=== PATIENT | male | born 1945 ===

== ENCOUNTER 2016-10-10 19:53 | Inpatient (IN) | payer OTHER, MEDICARE ==
[2016-10-10 19:54] VITALS: BMI 22.6
[2016-10-10] MEDS ORDERED: Sodium Chloride 0.9% 1,000 ML IV STA ×2 (20:28→21:10)
[2016-10-10 20:46] LABS: ABG ALLEN TEST YES; ARTERIAL BLOOD GAS HCO3 23.4 mmol/L (21-28); ARTERIAL BLOOD GAS PH 7.38 (7.35-7.45); ARTERIAL BLOOD GAS PO2 75 mm/Hg (80-100)
[2016-10-10 20:57] LABS: BASO # 0.1 K/uL (0.0-0.2); EOS % 0.2 % (0.0-4.0); HEMATOCRIT 43.1 % (35.0-51.0); LYMPH # 1.1 K/uL (1.0-4.3); LYMPH % 9.9 % (20.0-40.0); MEAN CELL VOLUME 91.3 fl (80.0-94.0); MEAN CORPUSCULAR HGB CONC 32.8 g/dL (33.0-37.0); MEAN PLATELET VOLUME 11.1 fl (7.2-11.7); MONO # 0.5 K/uL (0.0-0.8); MONO % 4.4 % (0.0-10.0); NEUT # 9.5 K/uL (1.8-7.0); NEUT % 84.5 % (50.0-75.0); NRBC % 0.1 % (0.0-0.0); PLATELET COUNT 215 K/uL (130-400); RED CELL DISTRIBUTION WIDTH 13.2 % (11.5-14.5); WHITE BLOOD COUNT 11.2 K/uL (4.8-10.8)
[2016-10-10 21:03] LABS: ALB/GLOB RATIO 1.1 (1.0-2.1); ALCOHOL SERUM < 10 mg/dl (0-10); ALKALINE PHOSPHATASE 114 U/L (38-126); ALT/SGPT 20 U/L (21-72); AST/SGOT 18 U/L (17-59); BILIRUBIN,TOTAL 0.7 mg/dl (0.2-1.3); BLOOD UREA NITROGEN 17 mg/dl (9-20); CALCIUM 9.2 mg/dL (8.4-10.2); CARBON DIOXIDE 22 mmol/L (22-30); CHLORIDE 96 mmol/L (98-107); GFR AFRICAN-AMERICAN > 60; LIPASE 51 U/L (23-300); PHOSPHOROUS 4.4 mg/dl (2.5-4.5); POTASSIUM 4.1 MMOL/L (3.6-5.0); SODIUM 134 mmol/l (132-148); TOTAL PROTEIN 7.6 G/DL (6.3-8.2)
[2016-10-10 21:10] LABS: PARTIAL THROMBOPLASTIN TIME 27.4 Seconds (25.6-37.1)
[2016-10-10] MEDS ORDERED: Insulin Regular 100 units/ml IVP STA (21:10)
[2016-10-10] MEDS ORDERED: Insulin Regular 100 units/ml SC STA (21:10)
[2016-10-10] MEDS ORDERED: Potassium Chloride 20 mEq ER Tab PO STA (21:11)
[2016-10-10 21:20] LABS: T4 7.05 ug/dl (5.5-11.0)
[2016-10-10 21:33] LABS: THYROID STIMULATING HORMONE 3.01 mIU/ML (0.46-4.68)
[2016-10-10 21:37] LABS: GLUCOSE,RANDOM 675 mg/dL (75-110)
[2016-10-10 21:39] LABS: NEUTROPHIL 88 % (42-75); TOTAL CELLS COUNTED 100
[2016-10-10 21:46] LABS: FREE T4 1.01 ng/dL (0.78-2.19)
--- NOTE | 2016-10-10 21:53 | ED PDOC ---
Hyperglycemia/Hypoglycemia Time Seen by Provider: 10/10/16 20:14 Chief Complaint (Nursing): Lower Extremity Problem/Injury Chief Complaint (Provider): weakness History Per: Patient History/Exam Limitations: clinical condition (h/o dementia) Onset/Duration Of Symptoms: Unknown : The patient does not have any of the infectious symptoms listed except for those marked. Additional Complaint(s): EM CAVEAT: History unreliable due to pt's h/o dementia Weakness in legs for many months. Today almost fell down. No head injury. Reports that he does not take any medications for diabetes. He repeatedly reports that he has 2 psychiatrists but no PMD. Pt has tangential thought process and unable to clarify events leading up to reason he presents to the ER today. Past Medical History Reviewed: Historical Data, Nursing Documentation, Vital Signs Vital Signs: Last Vital Signs Temp 98.3 F 10/10/16 19:58 Pulse 143 H 10/10/16 19:58 Resp 22 10/10/16 19:58 BP 135/73 10/10/16 19:58 Pulse Ox 100 10/10/16 19:58 - Medical History PMH: Alzheimer's Disease, Diabetes, Schizophrenia Denies: Chronic Kidney Disease - Family History Family History: States: Unknown Family Hx - Social History Current smoker - smoking cessation education provided: No Alcohol: None Drugs: Denies - Home Medications Home Medications: Ambulatory Orders Medication Instructions Recorded OLANZapine [Zyprexa] 15 mg PO DAILY #0 tab 12/14/15 Memantine HCl [Namenda Xr] 28 mg PO DAILY 10/11/16 - Allergies Allergies/Adverse Reactions: Allergies Allergy/AdvReac Type Severity Reaction Status Date / Time No Known Allergies Allergy Verified 10/10/16 19:58 Review of Systems ROS Statement: Except As Marked, All Systems Reviewed And Found Negative Constitutional: Positive for: Weakness, Malaise Neurological: Positive for: Incoordination, Confusion, Dizziness Psych: Negative for: Suicidal ideation Physical Exam - Reviewed Nursing Documentation Reviewed: Yes Vital Signs Reviewed: Yes - Physical Exam Appears: Positive for: In Acute Distress. Negative for: Uncomfortable Head Exam: Positive for: ATRAUMATIC, NORMOCEPHALIC Skin: Positive for: Warm, Dry Eye Exam: Positive for: EOMI, PERRL ENT: Positive for: Pharynx Is (clear), Other (dry muc memb) Neck: Positive for: Painless ROM, Supple Cardiovascular/Chest: Positive for: Tachycardia. Negative for: Murmur Respiratory: Positive for: Normal Breath Sounds. Negative for: Wheezing, Respiratory Distress Gastrointestinal/Abdominal: Positive for: Soft. Negative for: Tenderness Back: Positive for: Normal Inspection. Negative for: Vertebral Tenderness Extremity: Positive for: Normal ROM, Other (poor muscle bulk). Negative for: Deformity Lymphatic: Negative for: Adenopathy Neurologic/Psych: Positive for: Alert, station jailer II-XII (grossly intact), Oriented (x2 ), Mood/Affect (anxious, pressured speech, tangential thought). Negative for: Motor/Sensory Deficits, Aphasia, Facial Droop - Laboratory Results Result Diagrams: 10/10/16 20:48 10/10/16 20:50 - ECG ECG: Positive for: Interpreted By Nh ECG Rhythm: Positive for: Sinus Tachycardia, Nonspecific Changes O2 Sat by Pulse Oximetry: 100 Pulse Ox Interpretation: Normal - Progress ED Course And Treament: Accession No. : [id number] Patient Name / ID : ANNELIESE SWANSON / [id number] Exam Date : 10/10/2016 22:01:14 ( Approved ) Study Comment : Sex / Age : M / 70Y Creator : Mario Betancourt MD Dictator : Composite Technician : Construction Manager : Mario Betancourt MD Approver2 : Report Date : 10/10/2016 22:38:00 My Comment : [facility] Division of Radiology [address] [place] [address] Tel. no. Patient Name: KIKI COY Pt. Address: [address] [place] [address] Med. Rec #: [id number] [place] [address]: Arya YOU, Melody Mendoza Pt CELL Order Location: [facility] : 1945 Male Age: 70 Order #: [id number] Reason for exam: fall CT Scan HEAD W/O CONTRAST Exam Date: 10/10/16 This imaging exam was performed at [facility] EXAM: CT Head Without Intravenous Contrast CLINICAL HISTORY: 70 years old, male; Signs and symptoms; Weakness, extremity; Bilateral; Additional info: Fall TECHNIQUE: Axial computed tomography images of the head/brain without intravenous contrast. This CT exam was performed using one or more of the following dose reduction techniques: automated exposure control, adjustment of the mA and/or kV according to patient size, and/or use of iterative reconstruction technique. Coronal and sagittal reformatted images were created and reviewed. COMPARISON: CT - HEAD W/O CONTRAST 12/12/2015 11:22:45 PM FINDINGS: Brain: Mild atrophy. No intracranial hemorrhage. No mass. No definite edema. Ventricles: No hydrocephalus. Bones/joints: No acute fracture. Sinuses: Minimal mucus within RIGHT sphenoid sinus. Mastoid air cells: No mastoid effusion. Orbits: Unremarkable as visualized. IMPRESSION: 1. No intracranial hemorrhage. 2. Incidental/non-acute findings are described above. Dictated By: Mario Betancourt MD Dictated Date/Time: 10/10/162237 Signed By: Mario Betancourt MD Date Signed: [id number] Transcribed By: LORELEI Transcribe Date/Time : 10/10/162237 [id number]/[id number] Medical Decision Making Medical Decision Making: Labs demonstrated hyperglycemia and hyperosmolality and elevated lactic acid ( likely from dehydration). No acidosis. Episode of vomit in ER but then tolerated PO after Zofran Glucose/lactic acid improving with IVF and insulin. OLVIN Rodrigues Medical Service for hospitalization Disposition - Clinical Impression Clinical Impression: Hyperglycemia, Dementia Discussed With : Miguel Rodrigues Doctor Will See Patient In The: Hospital Counseled Patient/Family Regarding: Studies Performed, Diagnosis - Disposition Disposition Time: 23:00 Condition: FAIR - Pt Status Changed To: Hospital Disposition Of: Inpatient - Admit Certification Admit to Inpatient:: After my assessment, the patient will require hospitalization for at least two midnights. This is because of the severity of symptoms shown, intensity of services needed, and/or the medical risk in this patient being treated as an outpatient. - POA Present On Arrival: Poor Glycemic Control
--- NOTE | 2016-10-10 22:38 | CT ---
EXAM: CT Head Without Intravenous Contrast CLINICAL HISTORY: 70 years old, male; Signs and symptoms; Weakness, extremity; Bilateral; Additional info: Fall TECHNIQUE: Axial computed tomography images of the head/brain without intravenous contrast. This CT exam was performed using one or more of the following dose reduction techniques: automated exposure control, adjustment of the mA and/or kV according to patient size, and/or use of iterative reconstruction technique. Coronal and sagittal reformatted images were created and reviewed. COMPARISON: CT - HEAD W/O CONTRAST 12/12/2015 11:22:45 PM FINDINGS: Brain: Mild atrophy. No intracranial hemorrhage. No mass. No definite edema. Ventricles: No hydrocephalus. Bones/joints: No acute fracture. Sinuses: Minimal mucus within RIGHT sphenoid sinus. Mastoid air cells: No mastoid effusion. Orbits: Unremarkable as visualized. IMPRESSION: 1. No intracranial hemorrhage. 2. Incidental/non-acute findings are described above.
[2016-10-10 22:46] LABS: RBC URINE 2 /hpf (0-3); URINE BILIRUBIN NEGATIVE (NEGATIVE); URINE BLOOD NEGATIVE (NEGATIVE); URINE COLOR STRAW (YELLOW); URINE GLUCOSE (UA) >=500 mg/dL (Normal); URINE KETONE NEGATIVE (NEGATIVE); URINE LEUKOCYTE ESTERASE MOD Leu/uL (Negative); URINE PROTEIN NEGATIVE (NEGATIVE); URINE UROBILINOGEN 0.2-1.0 mg/dL (0.2-1.0); WBC URINE 8 /hpf (0-5)
[2016-10-10] MEDS ORDERED: Glucagon Recombinant 1 mg Inj IM PRN (23:19)
[2016-10-10] MEDS ORDERED: Dextrose 50% SYRINGE Inj (50 ml) IV PRN (23:19)
[2016-10-10 23:34] LABS: VENOUS BLOOD GAS BASE EXCESS 2.8 mmol/L (0.0-2.0); VENOUS BLOOD GAS PCO2 59 mmHg (40-60); VENOUS BLOOD PH 7.32 (7.32-7.43)
[2016-10-11] MEDS: Insulin Regular 100 units/ml SC SCH ×4 (00:08→17:02)
[2016-10-11] MEDS ORDERED: Insulin Regular 100 units/ml ONE ×2 (00:11→12:28)
--- NOTE | 2016-10-11 08:39 | RAD ---
HISTORY: hyperglycemia COMPARISON: 12/13/2015 FINDINGS: LUNGS: No active pulmonary disease. PLEURA: No significant pleural effusion identified, no pneumothorax apparent. CARDIOVASCULAR: Normal. OSSEOUS STRUCTURES: No significant abnormalities. VISUALIZED UPPER ABDOMEN: Normal. OTHER FINDINGS: None. IMPRESSION: No active disease. No significant interval change compared to the prior examination(s). No preliminary report provided by emergency department personnel.
[2016-10-11] MEDS: Sodium Chloride 0.45% 1,000 ML IV SCH ×2 (09:45→19:50)
[2016-10-11] MEDS: Enoxaparin 40 mg Syringe SC SCH (10:09)
--- NOTE | 2016-10-11 14:41 | CP.PCM.CON ---
History of Present Illness - History of Present Illness History of Present Illness: Psychiatry Consult called for history of schizophrenia CC: "I fell" HPI: 70 yo male w/ reported history of Alzheimers Dementia and Schizophrenia ( as per chart, patient denies), presented to the hospital s/p fall. Patient denies acute symptoms of paranoia, delusions, hallucinations, depression, anxiety, suicidal/homicidal ideation. Patient's primary complaint is medical. He reports that he lives alone. He is a limited historian due to cognitive impairment. PPHx: Reports being diagnosed with Schizophrenia at age 17, but does not believe the diagnosis is currently accurate. He reports compliance with Zyprexa 15 mg PO HS and Namenda 28 mg PO Daily. He reports that his psychiatrist is Dr. Campos. He reports that he was last hospitalized in 1998. PMHx: Patient denies acute medical issues, but he is a poor historian ALL: NKDA FHx: Denies family h/o mental illness SHx: Reports that he lives alone. Denies drugs/ etoh. MSE: Calm, cooperative, no acute distress, speech mumbled at times, thought process- coherent, but loose at times, thought content- no delusions, no hallucinations, mood "fine", affect- broad, no SI/HI. Insight/judgment limited due to cognitive impairment. Impression: 70 yo male w/ reported history of Alzheimers Dementia and Schizophrenia (as per chart, patient denies), per examination, patient seems to be psychiatrically stable at this time. -Continue Zyprexa 15 mg PO HS -Continue Namenda 28 mg PO Daily -No psychiatric inpatient admission indicated at this time -Recommend help arrange a safe discharge for the patient whenever he is medically stable, it is unclear how much help (BATHROOM TILING PROFESSIONAL, etc) the patient has at home and he seems unable to attend to all of his daily needs without assistance Past Patient History - Past Medical History & Family History Past Medical History?: No - Past Social History Alcohol: None Drugs: Denies - CARDIAC Hx Cardiac Disorders: No - PULMONARY Hx Respiratory Disorders: No - NEUROLOGICAL Hx Alzheimer's Disease: Yes - HEENT Hx HEENT Problems: No - RENAL Hx Chronic Kidney Disease: No - ENDOCRINE/METABOLIC Hx Endocrine Disorders: No - HEMATOLOGICAL/ONCOLOGICAL Hx Blood Disorders: No Hx Bruising: No - INTEGUMENTARY Hx Dermatological Problems: No - MUSCULOSKELETAL/RHEUMATOLOGICAL Hx Musculoskeletal Disorders: No - GASTROINTESTINAL Hx Gastrointestinal Disorders: No - GENITOURINARY/GYNECOLOGICAL Hx Genitourinary Disorders: No - PSYCHIATRIC Hx Schizophrenia: Yes - SURGICAL HISTORY Hx Surgeries: No - ANESTHESIA Hx Anesthesia: No Hx Anesthesia Reactions: No Meds Allergies/Adverse Reactions: Allergies Allergy/AdvReac Type Severity Reaction Status Date / Time No Known Allergies Allergy Verified 10/10/16 19:58 - Medications Medications: Current Medications Dextrose (Dextrose 50% Inj) 0 ml IV STAT PRN; Protocol PRN Reason: Hyglycemia Protocol Dextrose (Glutose 15) 0 gm PO ONCE PRN; Protocol PRN Reason: Hypoglycemia Protocol Enoxaparin Sodium (Lovenox) 40 mg SC DAILY BEL PRN Reason: Protocol Last Admin: 10/11/16 10:09 Dose: 40 mg Glucagon (Glucagen Diagnostic Kit) 0 mg IM STAT PRN; Protocol PRN Reason: Hypoglycemia Protocol Sodium Chloride (Sodium Chloride 0.45%) 1,000 mls @ 80 mls/hr IV .[id number] [facility] Stop: 10/12/16 08:19 Last Admin: 10/11/16 09:45 Dose: 80 mls/hr Insulin Human Regular (Humulin R) 0 units SC ACHS BEL PRN Reason: Protocol Last Admin: 10/11/16 12:39 Dose: 5 units Memantine (Namenda) 10 mg PO BID [facility] Last Admin: 10/11/16 10:08 Dose: 10 mg Metformin HCl (Glucophage) 1,000 mg PO BIDWM [facility] Last Admin: 10/11/16 10:07 Dose: 1,000 mg Olanzapine (Zyprexa) 15 mg PO HS [facility] Results - Vital Signs Recent Vital Signs: Last Vital Signs Temp 98.1 F 10/11/16 07:43 Pulse 82 10/11/16 11:29 Resp 16 10/11/16 11:29 BP 100/58 L 10/11/16 11:29 Pulse Ox 100 10/11/16 11:29 - Labs Result Diagrams: 10/10/16 20:48 10/10/16 20:50 Labs: Laboratory Results - last 24 hr 10/10/16 10/11/16 23:32 07:37 pO2 12 L VBG pH 7.32 VBG pCO2 59 VBG HCO3 24.8 VBG Total CO2 32.2 H VBG O2 Sat (Calc) 29.7 L VBG Base Excess 2.8 H VBG Potassium 3.5 L Sodium 143.0 Chloride 107.0 Glucose 85 Lactate 2.9 H FiO2 21.0 POC Glucose (mg/dL) 147 H Venous Blood Potassium 3.5 L
--- NOTE | 2016-10-11 15:07 | HP ---
HISTORY OF PRESENT ILLNESS: The patient is a 70-year-old male who was admitted to the emergency room. He does not give much of the history because he is unsure of how he got here, all he knows that he had an episode of dizziness and nearly fell while he was walking around the streets, and he was brought to the emergency room by the railroad police. It indicates he was in an ambulance. He does not remember anything else except that he has [address], [address]. Mayes and another psychiatrist that he follows up with in [place]. He is also on psychiatrist medications, but denies any other medical problems. He indicates that somebody told him he had diabetes, but he was not sure about it. PAST MEDICAL HISTORY: As per records indicates mild Alzheimer's disease, schizophrenia, diabetes mellitus. FAMILY HISTORY: Noncontributory. SOCIALLY: He denies alcohol or drug use and lives in [place]. MEDICATIONS: As per the patient is Zyprexa and Namenda. PHYSICAL EXAMINATION: GENERAL: The patient is alert, oriented, appears comfortable at present. VITAL SIGNS: Stable. HEENT: Pupils are equal and reactive to light and accommodation. He appears disheveled and unkempt. Mouth shows poor hygiene. JVP flat. LUNGS: Clear. HEART: Regular. No murmurs or gallop. ABDOMEN: Soft and nontender. No organomegaly. EXTREMITIES: Shows no edema. No cyanosis. CENTRAL NERVOUS SYSTEM: Grossly intact except for the fact that the patient's memory is poor. LABORATORY DATA: Remarkable for WBC of 11.2, hemoglobin 14.1, platelet count 215,000. Sodium 134, potassium 4.1, BUN 17, creatinine is 0.8. Serum glucose is 675. CT scan of the head grossly unremarkable except for mild atrophy. Chest x-ray official report is pending. Electrocardiogram is remarkable for sinus tachycardia. IMPRESSION: A 70-year-old male with history of schizophrenia, diabetes mellitus with hyperglycemia, tachycardia secondary to dehydration. PLAN: IV hydration, psychiatric evaluation, Monitor blood sugar and correct appropriately. [employer] intervention. Miguel Rodrigues MD
--- NOTE | 2016-10-11 17:44 | CARD ---
APPROVED REPORT EKG Measurement Heart [id number] AK 130P1 [id number] <Conclusion> Sinus tachycardia Otherwise normal ECG
[2016-10-11 23:18] VITALS: RESP 18
[2016-10-12 07:07] LABS: ALB/GLOB RATIO 0.9 (1.0-2.1); ALKALINE PHOSPHATASE 102 U/L (38-126); ALT/SGPT 28 U/L (21-72); AST/SGOT 18 U/L (17-59); BILIRUBIN,TOTAL 0.8 mg/dl (0.2-1.3); BLOOD UREA NITROGEN 13 mg/dl (9-20); CALCIUM 8.6 mg/dL (8.4-10.2); CARBON DIOXIDE 27 mmol/L (22-30); CHLORIDE 104 mmol/L (98-107); GFR AFRICAN-AMERICAN > 60; GLUCOSE,RANDOM 251 mg/dL (75-110); POTASSIUM 3.8 MMOL/L (3.6-5.0); SODIUM 139 mmol/l (132-148); TOTAL PROTEIN 6.7 G/DL (6.3-8.2)
[2016-10-12 07:11] LABS: BASO # 0.1 K/uL (0.0-0.2); BASO % 0.8 % (0.0-2.0); EOS # 0.2 K/uL (0.0-0.7); EOS % 1.4 % (0.0-4.0); HEMATOCRIT 40.3 % (35.0-51.0); LYMPH # 2.2 K/uL (1.0-4.3); LYMPH % 16.8 % (20.0-40.0); MEAN CORPUSCULAR HEMOGLOBIN 30.2 pg (27.0-31.0); MEAN CORPUSCULAR HGB CONC 33.5 g/dL (33.0-37.0); MEAN PLATELET VOLUME 10.4 fl (7.2-11.7); MONO # 0.6 K/uL (0.0-0.8); MONO % 4.8 % (0.0-10.0); NEUT # 9.7 K/uL (1.8-7.0); NEUT % 76.2 % (50.0-75.0); RED CELL DISTRIBUTION WIDTH 12.8 % (11.5-14.5); WHITE BLOOD COUNT 12.8 K/uL (4.8-10.8)
[2016-10-12] MEDS: Enoxaparin 40 mg Syringe SC SCH (08:04)
[2016-10-12] MEDS: Insulin Regular 100 units/ml SC SCH ×2 (08:05→12:18)
--- NOTE | 2016-10-12 09:12 | CP.PCM.DIS ---
Provider - Provider Date of Admission: 10/10/16 23:15 Attending physician: Miguel Rodrigues MD Time Spent in preparation of Discharge (in minutes): 30 Diagnosis - Discharge Diagnosis (1) Schizophrenia Status: Acute (2) Hyperglycemia Status: Acute (3) Dementia Status: Chronic Hospital Course - Lab Results Lab Results: Most Recent Lab Values WBC 12.8 K/uL (4.8-10.8) H 10/12/16 06:10 RBC 4.48 Mil/uL (4.40-5.90) 10/12/16 06:10 Hgb 13.5 g/dL (12.0-18.0) 10/12/16 06:10 Hct 40.3 % (35.0-51.0) 10/12/16 06:10 MCV 90.0 fl (80.0-94.0) 10/12/16 06:10 MCH 30.2 pg (27.0-31.0) 10/12/16 06:10 MCHC 33.5 g/dL (33.0-37.0) 10/12/16 06:10 RDW 12.8 % (11.5-14.5) 10/12/16 06:10 Plt Count 175 K/uL (130-400) 10/12/16 06:10 MPV 10.4 fl (7.2-11.7) 10/12/16 06:10 Neut % (Auto) 76.2 % (50.0-75.0) H 10/12/16 06:10 Lymph % (Auto) 16.8 % (20.0-40.0) L 10/12/16 06:10 [place] % (Auto) 4.8 % (0.0-10.0) 10/12/16 06:10 Eos % (Auto) 1.4 % (0.0-4.0) 10/12/16 06:10 Baso % (Auto) 0.8 % (0.0-2.0) 10/12/16 06:10 Neut # 9.7 K/uL (1.8-7.0) H 10/12/16 06:10 Lymph # 2.2 K/uL (1.0-4.3) 10/12/16 06:10 [place] # 0.6 K/uL (0.0-0.8) 10/12/16 06:10 Eos # 0.2 K/uL (0.0-0.7) 10/12/16 06:10 Baso # 0.1 K/uL (0.0-0.2) 10/12/16 06:10 Neutrophils % (Manual) 88 % (42-75) H 10/10/16 20:48 Band Neutrophils % 2 % (0-2) 10/10/16 20:48 Lymphocytes % (Manual) 8 % (20-50) L 10/10/16 20:48 Monocytes % (Manual) 2 % (0-10) 10/10/16 20:48 Platelet Estimate Normal (NORMAL) 10/10/16 20:48 PT 11.9 Seconds (9.8-13.1) 10/10/16 20:48 INR 1.2 (0.9-1.2) 10/10/16 20:48 APTT 27.4 Seconds (25.6-37.1) 10/10/16 20:48 pCO2 39 mm/Hg (35-45) 10/10/16 20:42 pO2 12 mm/Hg (30-55) L 10/10/16 23:32 HCO3 23.4 mmol/L (21-28) 10/10/16 20:42 ABG pH 7.38 (7.35-7.45) 10/10/16 20:42 ABG Total CO2 24.3 mmol/L (22-28) 10/10/16 20:42 ABG O2 Saturation 97.6 % (95-98) 10/10/16 20:42 ABG Base Excess -1.8 mmol/L (-2.0-3.0) 10/10/16 20:42 Tushar Test Yes 10/10/16 20:42 ABG Potassium 4.1 mmol/L (3.6-5.2) 10/10/16 20:42 VBG pH 7.32 (7.32-7.43) 10/10/16 23:32 VBG pCO2 59 mmHg (40-60) 10/10/16 23:32 VBG HCO3 24.8 mmol/L 10/10/16 23:32 VBG Total CO2 32.2 mmol/L (22-28) H 10/10/16 23:32 VBG O2 Sat (Calc) 29.7 % (40-65) L 10/10/16 23:32 VBG Base Excess 2.8 mmol/L (0.0-2.0) H 10/10/16 23:32 VBG Potassium 3.5 mmol/L (3.6-5.2) L 10/10/16 23:32 A-a O2 Difference 26.0 mm/Hg 10/10/16 20:42 Sodium 143.0 mmol/L (132-148) 10/10/16 23:32 Chloride 107.0 mmol/L (98-107) 10/10/16 23:32 Glucose 85 mg/dL (75-110) 10/10/16 23:32 Lactate 2.9 mmol/L (0.7-2.1) H 10/10/16 23:32 FiO2 21.0 % 10/10/16 23:32 Crit Value Called To Melody barlow md 10/10/16 20:42 Crit Value Called By [id number] 10/10/16 20:42 Crit Value Read Back Y 10/10/16 20:42 Blood Gas Notified Time 204510/10/16 20:42 Sodium 139 mmol/l (132-148) 10/12/16 06:10 Potassium 3.8 MMOL/L (3.6-5.0) 10/12/16 06:10 Chloride 104 mmol/L (98-107) 10/12/16 06:10 Carbon Dioxide 27 mmol/L (22-30) 10/12/16 06:10 Anion Gap 11 (10-20) 10/12/16 06:10 BUN 13 mg/dl (9-20) 10/12/16 06:10 Creatinine 0.5 mg/dL (0.8-1.5) L 10/12/16 06:10 Est GFR ( Amer) > 60 10/12/16 06:10 Est GFR (Non-Af Amer) > 60 10/12/16 06:10 POC Glucose (mg/dL) 282 mg/dL (65-110) H 10/12/16 05:46 Random Glucose 251 mg/dL (75-110) H 10/12/16 06:10 Serum Osmolality 333 mosm/kg (272-300) H 10/10/16 21:10 Calcium 8.6 mg/dL (8.4-10.2) 10/12/16 06:10 Phosphorus 4.4 mg/dl (2.5-4.5) 10/10/16 20:50 Magnesium 2.0 MG/DL (1.6-2.3) 10/10/16 20:50 Total Bilirubin 0.8 mg/dl (0.2-1.3) 10/12/16 06:10 AST 18 U/L (17-59) 10/12/16 06:10 ALT 28 U/L (21-72) 10/12/16 06:10 Alkaline Phosphatase 102 U/L (38-126) 10/12/16 06:10 Ammonia 10 umo/L (16-60) L 10/10/16 20:48 Troponin I < 0.0120 ng/mL (0.00-0.120) 10/10/16 20:50 Total Protein 6.7 G/DL (6.3-8.2) 10/12/16 06:10 Albumin 3.2 g/dL (3.5-5.0) L 10/12/16 06:10 Globulin 3.5 gm/dL (2.2-3.9) 10/12/16 06:10 Albumin/Globulin Ratio 0.9 (1.0-2.1) L 10/12/16 06:10 Lipase 51 U/L (23-300) 10/10/16 20:50 Free T4 1.01 ng/dL (0.78-2.19) 10/10/16 21:10 Thyroxine (T4) 7.05 ug/dl (5.5-11.0) 10/10/16 20:50 Total T3 1.72 nmol/L (1.49-2.60) 10/10/16 20:50 TSH 3rd Generation 3.01 mIU/ML (0.46-4.68) 10/10/16 20:50 Arterial Blood Potassium 4.1 mmol/L (3.6-5.2) 10/10/16 20:42 Venous Blood Potassium 3.5 mmol/L (3.6-5.2) L 10/10/16 23:32 Urine Color Straw (YELLOW) 10/10/16 22:23 Urine Clarity Clear (Clear) 10/10/16 22:23 Urine pH 6.0 (5.0-8.0) 10/10/16 22:23 Ur Specific [place] 1.030 (1.003-1.030) 10/10/16 22:23 Urine Protein Negative mg/dL (NEGATIVE) 10/10/16 22:23 Urine Glucose (UA) >=500 mg/dL (Normal) 10/10/16 22:23 Urine Ketones Negative mg/dL (NEGATIVE) 10/10/16 22:23 Urine Blood Negative (NEGATIVE) 10/10/16 22:23 Urine Nitrate Negative (NEGATIVE) 10/10/16 22:23 Urine Bilirubin Negative (NEGATIVE) 10/10/16 22:23 Urine Urobilinogen 0.2-1.0 mg/dL (0.2-1.0) 10/10/16 22:23 Ur Leukocyte Esterase Mod Adela/uL (Negative) 10/10/16 22:23 Urine RBC (Auto) 2 /hpf (0-3) 10/10/16 22:23 Urine Microscopic WBC 8 /hpf (0-5) H 10/10/16 22:23 Alcohol, Quantitative < 10 mg/dl (0-10) 10/10/16 20:50 Blood Type A POSITIVE 10/10/16 21:16 Antibody Screen Negative 10/10/16 21:16 BBK History Checked No verified bt 10/10/16 21:16 - Hospital Course Hospital Course: hyperglycemia improved with meds more awake and alert Discharge Exam - Head Exam Head Exam: ATRAUMATIC, NORMOCEPHALIC - Eye Exam Eye Exam: EOMI, Normal appearance, PERRL Pupil Exam: NORMAL ACCOMODATION, PERRL - GI/Abdominal Exam GI & Abdominal Exam: Normal Bowel Sounds - Rectal Exam Rectal Exam: NORMAL INSPECTION - Neurological Exam Neurological exam: Alert, CN II-XII Intact, Normal Gait, Oriented x3, Reflexes Normal - Psychiatric Exam Psychiatric exam: Normal Affect, Normal Mood - Skin Skin Exam: Dry, Intact, Normal Color, Warm Discharge Plan - Follow Up Plan Condition: FAIR Disposition: HOME/ ROUTINE Patient education suggested?: Yes Additional Instructions: discharge today pt indicates that he will follow up with his private dr and his psychiatrist dr perrin
[2016-10-12 12:31] VITALS: BP 97/60; PULSE 98; TEMP 98.5; O2SAT 98
== END 2016-10-12 15:15 | disposition home or self-care (01) | DRG 294 ==
LOC: H.ER 19:53 → H.ERHOLD 23:15 → H.TEL 10-11 18:19
PROVIDERS: ADMIT Internal Medicine Pulmonary Disease; ATTEND Internal Medicine Pulmonary Disease
DX: E11.65 Type 2 diabetes mellitus with hyperglycemia (principal); G30.9 Alzheimer's disease, unspecified; E86.0 Dehydration; F02.80 Dementia in other diseases classified elsewhere, unspecified severity, without behavioral disturbance, psychotic disturbance, mood disturbance, and anxiety; F20.9 Schizophrenia, unspecified; R00.0 Tachycardia, unspecified

== ENCOUNTER 2016-11-15 16:59 | Inpatient (IN) | payer MEDICARE, OTHER ==
[2016-11-15 17:00] VITALS: BMI 22.6
[2016-11-15] MEDS ORDERED: Sodium Chloride 0.9% 500 ML IV STA (17:35)
--- NOTE | 2016-11-15 17:39 | ED PDOC ---
HPI: General Adult Time Seen by Provider: 11/15/16 17:13 Chief Complaint (Nursing): Weakness/Neurological Deficit Chief Complaint (Provider): Weakness History Per: Patient History/Exam Limitations: no limitations Onset/Duration Of Symptoms: Days (2 years) Additional Complaint(s): Pt. states he has weakness legs and difficulty walking on going for 2 years. Pt. has pain in legs off and on, but not lately. Has no back pain, dizziness, chest pain, abd pain, fever, cough, headaches. No numbness, tingles. No incontinence or constipation. Is noncompliant with meds and does not know what medical issues he has. More details and hx from previous chart. Past Medical History Reviewed: Historical Data, Nursing Documentation, Vital Signs Vital Signs: Last Vital Signs Temp 98.0 F 11/15/16 17:01 Pulse 107 H 11/15/16 17:01 Resp 16 11/15/16 17:01 BP 154/68 H 11/15/16 17:01 Pulse Ox 99 11/15/16 18:49 - Medical History PMH: Alzheimer's Disease, Dementia, Diabetes, Schizophrenia Denies: HIV, Chronic Kidney Disease - Surgical History Surgical History: No Surg Hx - Family History Family History: States: Unknown Family Hx - Living Arrangements Living Arrangements: Alone - Social History Current smoker - smoking cessation education provided: No Alcohol: None Drugs: Denies - Home Medications Home Medications: Ambulatory Orders Medication Instructions Recorded OLANZapine [Zyprexa] 15 mg PO DAILY #0 tab 12/14/15 Memantine HCl [Namenda Xr] 28 mg PO DAILY 10/11/16 MetFORMIN [glucoPHAGE] 1,000 mg PO BIDWM #60 tab 10/12/16 - Allergies Allergies/Adverse Reactions: Allergies Allergy/AdvReac Type Severity Reaction Status Date / Time No Known Allergies Allergy Verified 10/10/16 19:58 Review of Systems ROS Statement: Except As Marked, All Systems Reviewed And Found Negative Constitutional: Positive for: Weakness Musculoskeletal: Positive for: Leg Pain Neurological: Positive for: Weakness. Negative for: Numbness, Confusion, Seizures, Altered Mental Status Physical Exam - Reviewed Nursing Documentation Reviewed: Yes Vital Signs Reviewed: Yes - Physical Exam Appears: Positive for: Non-toxic, No Acute Distress Head Exam: Positive for: ATRAUMATIC, NORMAL INSPECTION, NORMOCEPHALIC Skin: Positive for: Normal Color, Warm, DRY Eye Exam: Positive for: EOMI, Normal appearance, PERRL ENT: Positive for: Normal ENT Inspection Neck: Positive for: Normal, Painless ROM, Supple Cardiovascular/Chest: Positive for: Regular Rate, Rhythm Respiratory: Positive for: CNT, Normal Breath Sounds Gastrointestinal/Abdominal: Positive for: Normal Exam, Bowel Sounds, Soft. Negative for: Tenderness Back: Positive for: Normal Inspection. Negative for: L CVA Tenderness, R CVA Tenderness Extremity: Positive for: Normal ROM. Negative for: Tenderness, Pedal Edema Neurologic/Psych: Positive for: Alert, backwinder II-XII, Oriented. Negative for: Motor/Sensory Deficits - Laboratory Results Result Diagrams: 11/15/16 18:00 11/15/16 18:00 Interpretation Of Abn Labs: 388 glucose - ECG ECG: Positive for: Interpreted By Me, Viewed By Me ECG Rhythm: Positive for: Normal QRS, Normal ST Segment, Sinus Rhythm O2 Sat by Pulse Oximetry: 99 Pulse Ox Interpretation: Normal - Progress ED Course And Treament: 1854: Stable. Will need admit for further eval and tx of deconditioning and hyperglycemia. Spoke with Dr. Petit. Will admit tele obs. Pt. is not suicidal or homicidal at this time. Disposition - Clinical Impression Clinical Impression: Hyperglycemia, Physical deconditioning - Patient ED Disposition Is Patient to be Admitted: Yes Counseled Patient/Family Regarding: Studies Performed, Diagnosis - Disposition Disposition Time: 18:00 Condition: FAIR - Pt Status Changed To: Hospital Disposition Of: Observation - POA Present On Arrival: Poor Glycemic Control
[2016-11-15 18:13] LABS: VENOUS BLOOD GAS BASE EXCESS 2.1 mmol/L (0.0-2.0); VENOUS BLOOD GAS PCO2 52 mmHg (40-60); VENOUS BLOOD PH 7.35 (7.32-7.43)
--- NOTE | 2016-11-15 18:19 | RAD ---
HISTORY: weakness COMPARISON: Chest x-ray performed 10/10/16 TECHNIQUE: Chest, one view. FINDINGS: LUNGS: Mild left basilar atelectasis. Please note that chest x-ray has limited sensitivity for the detection of pulmonary masses. PLEURA: No significant pleural effusion identified. No definite pneumothorax . CARDIOVASCULAR: The cardiomediastinal silhouette appears within normal limits of size. OSSEOUS STRUCTURES: Degenerative changes of the spine. VISUALIZED UPPER ABDOMEN: Unremarkable. OTHER FINDINGS: None. IMPRESSION: Mild left basilar atelectasis.
[2016-11-15 18:26] LABS: BASO # 0.1 K/uL (0.0-0.2); BASO % 0.5 % (0.0-2.0); EOS % 0.2 % (0.0-4.0); HEMATOCRIT 42.5 % (35.0-51.0); LYMPH # 1.4 K/uL (1.0-4.3); LYMPH % 10.3 % (20.0-40.0); MEAN CELL VOLUME 89.8 fl (80.0-94.0); MEAN CORPUSCULAR HEMOGLOBIN 29.9 pg (27.0-31.0); MEAN CORPUSCULAR HGB CONC 33.3 g/dL (33.0-37.0); MEAN PLATELET VOLUME 10.8 fl (7.2-11.7); MONO # 0.7 K/uL (0.0-0.8); MONO % 4.9 % (0.0-10.0); NEUT # 11.3 K/uL (1.8-7.0); NEUT % 84.1 % (50.0-75.0); NRBC % 0.1 % (0.0-0.0); RED CELL DISTRIBUTION WIDTH 13.2 % (11.5-14.5); WHITE BLOOD COUNT 13.5 K/uL (4.8-10.8)
[2016-11-15 18:34] LABS: ALB/GLOB RATIO 1.2 (1.0-2.1); ALKALINE PHOSPHATASE 123 U/L (38-126); ALT/SGPT 31 U/L (21-72); AST/SGOT 61 U/L (17-59); BILIRUBIN,TOTAL 1.3 mg/dl (0.2-1.3); BLOOD UREA NITROGEN 16 mg/dl (9-20); CALCIUM 9.4 mg/dL (8.4-10.2); CARBON DIOXIDE 23 mmol/L (22-30); CHLORIDE 98 mmol/L (98-107); GFR AFRICAN-AMERICAN > 60; GLUCOSE,RANDOM 388 mg/dL (75-110); POTASSIUM 4.3 MMOL/L (3.6-5.0); SODIUM 136 mmol/l (132-148)
--- NOTE | 2016-11-15 18:47 | CT ---
PROCEDURE: CT HEAD WITHOUT CONTRAST. HISTORY: Headache COMPARISON: None available. TECHNIQUE: Axial computed tomography images were obtained through the head/brain without intravenous contrast. Radiation dose: Total exam DLP = 870.25 mGy-cm. This CT exam was performed using one or more of the following dose reduction techniques: Automated exposure control, adjustment of the mA and/or kV according to patient size, and/or use of iterative reconstruction technique. FINDINGS: HEMORRHAGE: No intracranial hemorrhage. BRAIN: Lundberg-white matter differentiation is preserved. There is no mass, mass effect or abnormal extra-axial fluid collection. VENTRICLES: There is mild age-related global parenchymal volume loss and proportionate enlargement of the ventricles and cortical sulci. CALVARIUM: The skull base and calvarium are normal. PARANASAL SINUSES: Predominantly clear. MASTOID AIR CELLS: Predominantly clear. OTHER FINDINGS: None. IMPRESSION: No acute intracranial abnormality. Mild age-related global parenchymal volume loss.
[2016-11-15] MEDS ORDERED: Sodium Chloride 0.9% 1,000 ML IV STA (18:52)
[2016-11-15] MEDS ORDERED: Insulin Regular 100 units/ml IV STA (18:53)
[2016-11-15] MEDS: Insulin Lispro (humaLOG) 100 Units/ml Inj SC SCH (22:43)
[2016-11-16] MEDS: Sodium Chloride 0.9% 1,000 ML IV SCH ×3 (01:53→21:09)
[2016-11-16 06:53] LABS: BASO # 0.1 K/uL (0.0-0.2); BASO % 0.7 % (0.0-2.0); EOS # 0.3 K/uL (0.0-0.7); EOS % 2.7 % (0.0-4.0); HEMATOCRIT 42.6 % (35.0-51.0); LYMPH # 2.6 K/uL (1.0-4.3); MEAN CELL VOLUME 89.7 fl (80.0-94.0); MEAN CORPUSCULAR HEMOGLOBIN 30.5 pg (27.0-31.0); MEAN PLATELET VOLUME 10.3 fl (7.2-11.7); MONO # 0.5 K/uL (0.0-0.8); MONO % 5.1 % (0.0-10.0); NEUT # 6.5 K/uL (1.8-7.0); NEUT % 65.5 % (50.0-75.0); NRBC % 0.2 % (0.0-0.0); RED CELL DISTRIBUTION WIDTH 13.3 % (11.5-14.5); WHITE BLOOD COUNT 9.9 K/uL (4.8-10.8)
[2016-11-16 06:59] LABS: BLOOD UREA NITROGEN 10 mg/dl (9-20); CALCIUM 8.8 mg/dL (8.4-10.2); CARBON DIOXIDE 27 mmol/L (22-30); CHLORIDE 104 mmol/L (98-107); CHOLESTEROL 165 mg/dL (0-199); GFR AFRICAN-AMERICAN > 60; GLUCOSE,RANDOM 171 mg/dL (75-110); POTASSIUM 3.9 MMOL/L (3.6-5.0); SODIUM 139 mmol/l (132-148)
[2016-11-16 07:24] LABS: THYROID STIMULATING HORMONE 4.36 mIU/ML (0.46-4.68)
[2016-11-16 08:19] LABS: RBC URINE 3 /hpf (0-3); URINE BACTERIA RARE (<OCC); URINE BILIRUBIN NEGATIVE (NEGATIVE); URINE BLOOD SMALL (NEGATIVE); URINE COLOR YELLOW (YELLOW); URINE GLUCOSE (UA) >=500 mg/dL (Normal); URINE KETONE 20 mg/dL (NEGATIVE); URINE LEUKOCYTE ESTERASE TRACE Leu/uL (Negative); URINE PROTEIN NEGATIVE (NEGATIVE); URINE UROBILINOGEN 0.2-1.0 mg/dL (0.2-1.0); WBC URINE 8 /hpf (0-5)
--- NOTE | 2016-11-16 08:40 | CP.PCM.CON ---
History of Present Illness - History of Present Illness History of Present Illness: psychiatry consult ordered by dr. kapoor reason: "Pt might have prior psych issue"? cc: i am a normal person with a psych issue hpi: 71 yo male, history of schizophrenia and dementia per history. he is a patient of dr. dominguez who prescribes zyprexa. he saw dr dominguez on november 14, 2016. Dr. Salas also has seen the patient as a operations consultant in October 2016 and recommended maintaining the same psych medications and her consult can be referenced as there is no change. the patient denies any active psychiatric issues and feels he is at his baseline. he is pleased with her psychiatric care and sees his psychiatrist regularly. pt states his main concern is weakness and trouble walking. he denies dizziness. past psych: was on [facility] in 2012. takes zyprexa. social: lives alone substance use: denies medical: diabetes mse: alert, oriented x 3. mood is "good" affect appropriate. well groomed. good eye contact. thoughts are logical. denies any suicidal or homicidal thoughts. denies any a/v hallucinations. fair insight and judgment impression: yes, the patient does have a prior psych issue which has been documented by last month's consult and as confirmed by talking to the patient who is a good historian. He is under the care of a psychiatrist and at his baseline in terms of his mood/ thought symptoms and is in behavioral control. the diagnosis is schizophrenia, by history pt can be restarted on the medications he was previously taking as he has been adherent and his psychiatric status is stable thank you for allowing me to participate in the care of your patient and have a wonderful day. Past Patient History - Past Medical History & Family History Past Medical History?: Yes - Past Social History Smoking Status: Former Smoker - CARDIAC Hx Cardiac Disorders: No - PULMONARY Hx Respiratory Disorders: No - NEUROLOGICAL Hx Neurological Disorder: Yes Hx Alzheimer's Disease: Yes Hx Dementia: Yes - HEENT Hx HEENT Problems: No - RENAL Hx Chronic Kidney Disease: No - ENDOCRINE/METABOLIC Hx Endocrine Disorders: Yes Hx Diabetes Mellitus Type 2: Yes - HEMATOLOGICAL/ONCOLOGICAL Hx Blood Disorders: No Hx Human Immunodeficiency Virus (HIV): No - INTEGUMENTARY Hx Dermatological Problems: No - MUSCULOSKELETAL/RHEUMATOLOGICAL Hx Musculoskeletal Disorders: Yes Hx Falls: Yes - GASTROINTESTINAL Hx Gastrointestinal Disorders: No - GENITOURINARY/GYNECOLOGICAL Hx Genitourinary Disorders: No - PSYCHIATRIC Hx Psychophysiologic Disorder: No Hx Substance Use: No - SURGICAL HISTORY Hx Surgeries: No - ANESTHESIA Hx Anesthesia: No Hx Anesthesia Reactions: No Hx Malignant Hyperthermia: No Meds Allergies/Adverse Reactions: Allergies Allergy/AdvReac Type Severity Reaction Status Date / Time No Known Allergies Allergy Verified 10/10/16 19:58 - Medications Medications: Current Medications Enoxaparin Sodium (Lovenox) 40 mg SC DAILY BEL PRN Reason: Protocol Sodium Chloride (Sodium Chloride 0.9%) 1,000 mls @ 100 mls/hr IV .Q10H BEL Stop: 11/17/16 00:31 Last Admin: 11/16/16 01:53 Dose: 100 mls/hr Insulin Human Lispro (Humalog) 0 units SC ACCU-CHECK BEL PRN Reason: Protocol Last Admin: 11/15/16 22:43 Dose: 2 unit Results - Vital Signs Recent Vital Signs: Last Vital Signs Temp 9.6 F L 11/16/16 08:00 Pulse 76 11/16/16 08:00 Resp 18 11/16/16 08:00 BP 112/63 11/16/16 08:00 Pulse Ox 98 11/16/16 08:00 - Labs Result Diagrams: 11/16/16 06:00 11/16/16 06:00 Labs: Laboratory Results - last 24 hr 11/15/16 11/15/16 11/16/16 20:18 22:04 05:25 WBC RBC Hgb Hct MCV MCH MCHC RDW Plt Count MPV Neut % (Auto) Lymph % (Auto) [place] % (Auto) Eos % (Auto) Baso % (Auto) Neut # Lymph # [place] # Eos # Baso # Sodium Potassium Chloride Carbon Dioxide Anion Gap BUN Creatinine Est GFR ( Amer) Est GFR (Non-Af Amer) POC Glucose (mg/dL) 235 H 395 H 296 H Random Glucose Calcium Triglycerides Cholesterol LDL Cholesterol Direct HDL Cholesterol Vitamin B12 TSH 3rd Generation 11/16/16 11/16/16 06:00 06:00 WBC 9.9 RBC 4.74 Hgb 14.5 Hct 42.6 MCV 89.7 MCH 30.5 MCHC 34.0 RDW 13.3 Plt Count 181 MPV 10.3 Neut % (Auto) 65.5 Lymph % (Auto) 26.0 [place] % (Auto) 5.1 Eos % (Auto) 2.7 Baso % (Auto) 0.7 Neut # 6.5 Lymph # 2.6 [place] # 0.5 Eos # 0.3 Baso # 0.1 Sodium 139 Potassium 3.9 Chloride 104 Carbon Dioxide 27 Anion Gap 12 BUN 10 Creatinine 0.6 L Est GFR ( Amer) > 60 Est GFR (Non-Af Amer) > 60 POC Glucose (mg/dL) Random Glucose 171 H Calcium 8.8 Triglycerides 102 D Cholesterol 165 LDL Cholesterol Direct 94 HDL Cholesterol 50 Vitamin B12 835 TSH 3rd Generation 4.36
[2016-11-16] MEDS: Enoxaparin 40 mg Syringe SC SCH (09:54)
[2016-11-16] MEDS: Insulin Lispro (humaLOG) 100 Units/ml Inj SC SCH ×4 (09:55→22:49)
--- NOTE | 2016-11-17 00:05 | CP.PCM.HP ---
History of Present Illness - History of Present Illness History of Present Illness: CC: Unable to Ambulate and Hyperglycemia History of Present Illness: A 71yoM with H/O DM and weakness legs and difficulty walking on going for 2 years presented with unable to ambualte and worsened generalized weakness and found to be Dehydrated and Hyperglycemia >400mg/dl. Has no back pain, dizziness , chest pain, abd pain, fever, cough, or headaches. No numbness, tingles. No incontinence or constipation. Is noncompliant with meds and does not know what medical issues he has. More details and hx from previous charts. Present on Admission - Present on Admission Any Indicators Present on Admission: Yes History of DVT/PE: No History of Uncontrolled Diabetes: Yes Urinary Catheter: No Decubitus Ulcer Present: No Review of Systems - Review of Systems All systems: reviewed and no additional remarkable complaints except Review of Systems: as per HPI. Past Patient History - Past Medical History & Family History Past Medical History?: Yes Past Family History: Reviewed and not pertinent - Past Social History Smoking Status: Former Smoker Alcohol: None Drugs: Denies - CARDIAC Hx Cardiac Disorders: No - PULMONARY Hx Respiratory Disorders: No - NEUROLOGICAL Hx Neurological Disorder: Yes Hx Alzheimer's Disease: Yes Hx Dementia: Yes - HEENT Hx HEENT Problems: No - RENAL Hx Chronic Kidney Disease: No - ENDOCRINE/METABOLIC Hx Endocrine Disorders: Yes Hx Diabetes Mellitus Type 2: Yes - HEMATOLOGICAL/ONCOLOGICAL Hx Blood Disorders: No Hx Human Immunodeficiency Virus (HIV): No - INTEGUMENTARY Hx Dermatological Problems: No - MUSCULOSKELETAL/RHEUMATOLOGICAL Hx Musculoskeletal Disorders: Yes Hx Falls: Yes - GASTROINTESTINAL Hx Gastrointestinal Disorders: No - GENITOURINARY/GYNECOLOGICAL Hx Genitourinary Disorders: No - PSYCHIATRIC Hx Psychophysiologic Disorder: No Hx Substance Use: No - SURGICAL HISTORY Hx Surgeries: No - ANESTHESIA Hx Anesthesia: No Hx Anesthesia Reactions: No Hx Malignant Hyperthermia: No Meds Home Medications: Home Medication List Medication Instructions Recorded Confirmed Type MetFORMIN [glucoPHAGE] 1,000 mg PO BIDWM #30 tab 11/17/16 Rx Allergies/Adverse Reactions: Allergies Allergy/AdvReac Type Severity Reaction Status Date / Time No Known Allergies Allergy Verified 10/10/16 19:58 Physical Exam - Constitutional Appears: Well, No Acute Distress - Head Exam Head Exam: ATRAUMATIC, NORMAL INSPECTION, NORMOCEPHALIC - Eye Exam Eye Exam: EOMI, Normal appearance, PERRL Pupil Exam: NORMAL ACCOMODATION, PERRL - ENT Exam ENT Exam: Mucous Membranes Moist, Normal Exam - Neck Exam Neck exam: Positive for: Normal Inspection - Respiratory Exam Respiratory Exam: Clear to Auscultation Bilateral, NORMAL BREATHING PATTERN - Cardiovascular Exam Cardiovascular Exam: REGULAR RHYTHM, +S1, +S2 - GI/Abdominal Exam GI & Abdominal Exam: Normal Bowel Sounds, Soft. absent: Tenderness - Extremities Exam Extremities exam: Positive for: normal capillary refill, normal inspection - Back Exam Back exam: FULL ROM, NORMAL INSPECTION. absent: CVA tenderness (L), CVA tenderness (R) - Neurological Exam Neurological exam: Alert, CN II-XII Intact, Oriented x3, Reflexes Normal Additional comments: Unable to ambulate due to Limited ROM to the right Knee. - Psychiatric Exam Psychiatric exam: Normal Affect, Normal Mood - Skin Skin Exam: Dry, Intact, Normal Color, Warm Results - Vital Signs Recent Vital Signs: Last Vital Signs Temp 97.9 F 11/16/16 19:02 Pulse 92 H 11/16/16 19:02 Resp 20 11/16/16 19:02 BP 110/62 11/16/16 19:02 Pulse Ox 98 11/16/16 19:02 - Labs Result Diagrams: 11/16/16 06:00 11/16/16 06:00 Assessment & Plan (1) Dehydration Assessment and Plan: IVF Montor Elctrolytes PT/OT evaluation Status: Acute (2) Assistance needed for ambulation and movement Assessment and Plan: PT/OT Evaluation and Treatment Status: Acute (3) Diabetes mellitus with hyperglycemia Assessment and Plan: Uncontrolled Accu-check with Novolog SS Coverage HgA!C Status: Chronic Priority: Medium
[2016-11-17 00:18] VITALS: RESP 18
--- NOTE | 2016-11-17 08:24 | CP.PCM.PN ---
Subjective - Date & Time of Evaluation Date of Evaluation: 11/17/16 Time of Evaluation: 08:00 - Subjective Subjective: Seen and Examined at the bed side. Hydrated well today, and to be reevaluated by PT/OT. Objective - Vital Signs/Intake and Output Vital Signs (last 24 hours): Temp Pulse Resp BP Pulse Ox 97.6 F 98 H 18 114/63 98 11/17/16 05:33 11/17/16 05:33 11/17/16 05:33 11/17/16 05:33 11/17/16 05:33 - Medications Medications: Current Medications Enoxaparin Sodium (Lovenox) 40 mg SC DAILY BEL PRN Reason: Protocol Last Admin: 11/16/16 09:54 Dose: 40 mg Insulin Human Lispro (Humalog) 0 units SC ACCU-CHECK BEL PRN Reason: Protocol Last Admin: 11/16/16 22:49 Dose: Not Given - Labs Labs: PT 10.7 Seconds (9.8-13.1) 11/15/16 18:40 INR 1.0 (0.9-1.2) 11/15/16 18:40 APTT 33.0 Seconds (25.6-37.1) 11/15/16 18:40 Assessment and Plan (1) Assistance needed for ambulation and movement Status: Acute (2) Dehydration Status: Resolved (3) Diabetes mellitus with hyperglycemia Status: Acute
[2016-11-17 08:25] VITALS: BP 96/57; PULSE 74; TEMP 98.1; O2SAT 94
[2016-11-17] MEDS: Insulin Lispro (humaLOG) 100 Units/ml Inj SC SCH ×2 (09:01→12:51)
[2016-11-17] MEDS: Enoxaparin 40 mg Syringe SC SCH (09:01)
--- NOTE | 2016-11-17 15:15 | CP.PCM.DIS ---
Provider - Provider Date of Admission: 11/16/16 18:26 Attending physician: Mel Petit MD Time Spent in preparation of Discharge (in minutes): 25 Diagnosis - Discharge Diagnosis (1) Assistance needed for ambulation and movement Status: Acute (2) Dehydration Status: Resolved (3) Diabetes mellitus with hyperglycemia Status: Acute Priority: Medium Hospital Course - Lab Results Lab Results: Most Recent Lab Values WBC 9.9 K/uL (4.8-10.8) 11/16/16 06:00 RBC 4.74 Mil/uL (4.40-5.90) 11/16/16 06:00 Hgb 14.5 g/dL (12.0-18.0) 11/16/16 06:00 Hct 42.6 % (35.0-51.0) 11/16/16 06:00 MCV 89.7 fl (80.0-94.0) 11/16/16 06:00 MCH 30.5 pg (27.0-31.0) 11/16/16 06:00 MCHC 34.0 g/dL (33.0-37.0) 11/16/16 06:00 RDW 13.3 % (11.5-14.5) 11/16/16 06:00 Plt Count 181 K/uL (130-400) 11/16/16 06:00 MPV 10.3 fl (7.2-11.7) 11/16/16 06:00 Neut % (Auto) 65.5 % (50.0-75.0) 11/16/16 06:00 Lymph % (Auto) 26.0 % (20.0-40.0) 11/16/16 06:00 [place] % (Auto) 5.1 % (0.0-10.0) 11/16/16 06:00 Eos % (Auto) 2.7 % (0.0-4.0) 11/16/16 06:00 Baso % (Auto) 0.7 % (0.0-2.0) 11/16/16 06:00 Neut # 6.5 K/uL (1.8-7.0) 11/16/16 06:00 Lymph # 2.6 K/uL (1.0-4.3) 11/16/16 06:00 [place] # 0.5 K/uL (0.0-0.8) 11/16/16 06:00 Eos # 0.3 K/uL (0.0-0.7) 11/16/16 06:00 Baso # 0.1 K/uL (0.0-0.2) 11/16/16 06:00 PT 10.7 Seconds (9.8-13.1) 11/15/16 18:40 INR 1.0 (0.9-1.2) 11/15/16 18:40 APTT 33.0 Seconds (25.6-37.1) 11/15/16 18:40 pO2 26 mm/Hg (30-55) L 11/15/16 18:03 VBG pH 7.35 (7.32-7.43) 11/15/16 18:03 VBG pCO2 52 mmHg (40-60) 11/15/16 18:03 VBG HCO3 25.1 mmol/L 11/15/16 18:03 VBG Total CO2 30.3 mmol/L (22-28) H 11/15/16 18:03 VBG O2 Sat (Calc) 50.9 % (40-65) 11/15/16 18:03 VBG Base Excess 2.1 mmol/L (0.0-2.0) H 11/15/16 18:03 VBG Potassium 4.1 mmol/L (3.6-5.2) 11/15/16 18:03 Sodium 135.0 mmol/L (132-148) 11/15/16 18:03 Chloride 97.0 mmol/L (98-107) L 11/15/16 18:03 Glucose 413 mg/dL (75-110) H* D 11/15/16 18:03 Lactate 2.0 mmol/L (0.7-2.1) 11/15/16 18:03 FiO2 21.0 % 11/15/16 18:03 Crit Value Called To Dr edin sanabria 11/15/16 18:03 Crit Value Called By Gabriel 11/15/16 18:03 Crit Value Read Back Y 11/15/16 18:03 Blood Gas Notified Time 18111/15/16 18:03 Sodium 139 mmol/l (132-148) 11/16/16 06:00 Potassium 3.9 MMOL/L (3.6-5.0) 11/16/16 06:00 Chloride 104 mmol/L (98-107) 11/16/16 06:00 Carbon Dioxide 27 mmol/L (22-30) 11/16/16 06:00 Anion Gap 12 (10-20) 11/16/16 06:00 BUN 10 mg/dl (9-20) 11/16/16 06:00 Creatinine 0.6 mg/dL (0.8-1.5) L 11/16/16 06:00 Est GFR ( Amer) > 60 11/16/16 06:00 Est GFR (Non-Af Amer) > 60 11/16/16 06:00 POC Glucose (mg/dL) 335 mg/dL (65-110) H 11/17/16 12:44 Random Glucose 171 mg/dL (75-110) H 11/16/16 06:00 Hemoglobin A1c 12.3 % (4.2-6.5) H 11/16/16 06:00 Calcium 8.8 mg/dL (8.4-10.2) 11/16/16 06:00 Total Bilirubin 1.3 mg/dl (0.2-1.3) 11/15/16 18:00 AST 61 U/L (17-59) H 11/15/16 18:00 ALT 31 U/L (21-72) 11/15/16 18:00 Alkaline Phosphatase 123 U/L (38-126) 11/15/16 18:00 Troponin I < 0.0120 ng/mL (0.00-0.120) 11/15/16 18:00 Total Protein 8.0 G/DL (6.3-8.2) 11/15/16 18:00 Albumin 4.3 g/dL (3.5-5.0) 11/15/16 18:00 Globulin 3.7 gm/dL (2.2-3.9) 11/15/16 18:00 Albumin/Globulin Ratio 1.2 (1.0-2.1) 11/15/16 18:00 Triglycerides 102 mg/DL (0-149) D 11/16/16 06:00 Cholesterol 165 mg/dL (0-199) 11/16/16 06:00 LDL Cholesterol Direct 94 mg/dL (0-129) 11/16/16 06:00 HDL Cholesterol 50 MG/DL (30-70) 11/16/16 06:00 Vitamin B12 835 pg/mL (239-931) 11/16/16 06:00 TSH 3rd Generation 4.36 mIU/ML (0.46-4.68) 11/16/16 06:00 Venous Blood Potassium 4.1 mmol/L (3.6-5.2) 11/15/16 18:03 Urine Color Yellow (YELLOW) 11/15/16 07:52 Urine Clarity Clear (Clear) 11/15/16 07:52 Urine pH 5.0 (5.0-8.0) 11/15/16 07:52 Ur Specific [place] 1.027 (1.003-1.030) 11/15/16 07:52 Urine Protein Negative mg/dL (NEGATIVE) 11/15/16 07:52 Urine Glucose (UA) >=500 mg/dL (Normal) 11/15/16 07:52 Urine Ketones 20 mg/dL (NEGATIVE) 11/15/16 07:52 Urine Blood Small (NEGATIVE) 11/15/16 07:52 Urine Nitrate Negative (NEGATIVE) 11/15/16 07:52 Urine Bilirubin Negative (NEGATIVE) 11/15/16 07:52 Urine Urobilinogen 0.2-1.0 mg/dL (0.2-1.0) 11/15/16 07:52 Ur Leukocyte Esterase Trace Adela/uL (Negative) 11/15/16 07:52 Urine RBC (Auto) 3 /hpf (0-3) 11/15/16 07:52 Urine Microscopic WBC 8 /hpf (0-5) H 11/15/16 07:52 Ur Squamous Epith Cells < 1 /hpf (0-5) 11/15/16 07:52 Urine Bacteria Rare (<OCC) 11/15/16 07:52 RPR Nonreactive (NONREACTIVE) 11/16/16 06:00 Hydratioon - Hospital Course Hospital Course: IV Hydration and Physical Therapy. Novolog coverage. Will D/C Home on Metformin 1000mg BID from Prior Record. Discharge Exam - Head Exam Head Exam: ATRAUMATIC, NORMAL INSPECTION, NORMOCEPHALIC Discharge Plan - Discharge Medications Prescriptions: MetFORMIN [glucoPHAGE] 1,000 mg PO BIDWM #30 tab - Follow Up Plan Condition: FAIR Disposition: HOME/ ROUTINE Instructions: Dehydration (DC) Additional Instructions: patient cleared for discharge to Home today by f/u with PMD in 1 week
== END 2016-11-17 16:29 | disposition home health service (06) | DRG 641 ==
LOC: H.ER 16:59 → H.ERHOLD 18:51 → H.TEL 20:52 → OBSVTOIN 11-16 18:26
PROVIDERS: ADMIT Internal Medicine; ATTEND Internal Medicine
DX: E86.0 Dehydration (principal); E11.65 Type 2 diabetes mellitus with hyperglycemia; G30.9 Alzheimer's disease, unspecified; F02.80 Dementia in other diseases classified elsewhere, unspecified severity, without behavioral disturbance, psychotic disturbance, mood disturbance, and anxiety; F20.9 Schizophrenia, unspecified; R26.2 Difficulty in walking, not elsewhere classified; Z91.14 Patient's other noncompliance with medication regimen; Z79.84 Long term (current) use of oral hypoglycemic drugs; Z87.891 Personal history of nicotine dependence

== ENCOUNTER 2017-05-01 18:39 | Inpatient (IN) | payer MEDICARE, OTHER ==
[2017-05-01 18:39] VITALS: BMI 22.6
[2017-05-01] MEDS ORDERED: Sodium Chloride 0.9% 1,000 ML IV STA (19:04)
--- NOTE | 2017-05-01 20:18 | ED PDOC ---
HPI: Trauma/Fall - HPI Time Seen by Provider: 05/01/17 18:59 Chief Complaint (Nursing): High Blood Sugar Chief Complaint (Provider): Fall injury History Per: Patient, EMS History/Exam Limitations: no limitations Onset/Duration Of Symptoms: Hrs (today) Injury Occurred (Timing): Just Before Arrival Location Of Injury: Anterior: Head (face and nose) Associated Symptoms: denies: LOC Additional Complaint(s): Gabriel Larson is a 71 year old male, with a past medical history of Alzheimer 's disease, schizophrenia, dementia and diabetes, who was brought to the emergency department via EMS for facial injury and nose bleed s/p fall after feeling weak onset prior to arrival. Patient states this has happened before multiple times, he is diabetic and noncompliant with medication. He denies any weakness, blurry vision, difficulty speaking, alcohol or substance abuse. No further medical complaints. PMD: None provided. Past Medical History Reviewed: Historical Data, Nursing Documentation, Vital Signs Vital Signs: Last Vital Signs Temp 98 F 05/01/17 23:04 Pulse 126 H 05/01/17 23:11 Resp 16 05/01/17 23:11 BP 107/60 05/01/17 23:11 Pulse Ox 96 05/01/17 23:11 - Medical History PMH: Alzheimer's Disease, Dementia, Diabetes, Schizophrenia Denies: HIV, Chronic Kidney Disease - Surgical History Surgical History: No Surg Hx - Family History Family History: States: Unknown Family Hx - Home Medications Home Medications: Ambulatory Orders Medication Instructions Recorded MetFORMIN [glucoPHAGE] 1,000 mg PO BIDWM #30 tab 11/17/16 - Allergies Allergies/Adverse Reactions: Allergies Allergy/AdvReac Type Severity Reaction Status Date / Time No Known Allergies Allergy Verified 05/01/17 18:44 Review of Systems ROS Statement: Except As Marked, All Systems Reviewed And Found Negative Constitutional: Positive for: Other (facial injury) Eyes: Negative for: Vision Change ENT: Positive for: Nose Discharge (nosebleed ) Neurological: Negative for: Weakness, Change in Speech Physical Exam - Reviewed Nursing Documentation Reviewed: Yes Vital Signs Reviewed: Yes - Physical Exam Appears: Positive for: No Acute Distress. Negative for: Well (cachectic appearing.) Skin: Positive for: Normal Color, Warm, Dry Eye Exam: Positive for: Normal appearance, EOMI, PERRL ENT: Positive for: Other (diffused edema of nasal bridge and nose with dry blood in b/l nares. No septal hematoma.) Neck: Positive for: Painless ROM, Supple Cardiovascular/Chest: Positive for: Regular Rate, Rhythm. Negative for: Murmur Respiratory: Positive for: Normal Breath Sounds. Negative for: Respiratory Distress Gastrointestinal/Abdominal: Positive for: Normal Exam, Soft. Negative for: Tenderness, Guarding, Rebound Back: Positive for: Normal Inspection. Negative for: L CVA Tenderness, R CVA Tenderness, Vertebral Tenderness Extremity: Positive for: Normal ROM. Negative for: Tenderness, Deformity, Swelling Neurologic/Psych: Positive for: Alert, Oriented (x3). Negative for: Motor/ Sensory Deficits Comments: Accu-chek is over 500. - Laboratory Results Result Diagrams: 05/01/17 20:57 05/01/17 20:57 - ECG O2 Sat by Pulse Oximetry: 96 (RA) Pulse Ox Interpretation: Normal Medical Decision Making Medical Decision Making: Initial Impression: head injury, hypoglycemia. Differential includes but not limited to DKA, dehydration, electrolyte abnormality, traumatic brain injury. Initial Plan: --Type and screen --VBG --Cervical spine w/o contrast [CT] --Head w/o contrast [CT] --Maxillofacial w/o contrast [CT] --EKG --Alcohol serum --CMP --Magnesium --Phosphorus --Troponin I --Urine dipstick --CBC w/ differential --PTT --PT --Chest portable [RAD] --Sodium Chloride 1,000 ml IV 1,000 mls/hr --Blood culture --Urine culture --Influenza A B --Urinalysis --Reevaluation 20:[address] FINDINGS: Brain: There is prominence of sulci, gyri and ventricles. There is no midline shift. There are no intraaxial or extra axial mass lesions or areas of hemorrhage. Lundberg-white differentiation is maintained. Ventricles: See above. Bony structures: Cranial vault is intact. Soft tissues: unremarkable Sinuses: There is no acute sinusitis. Ears and mastoids: Middle ears and mastoids unremarkable. Orbits: Orbital contents are unremarkable. IMPRESSION: No acute intracranial abnormality 20:[address] FINDINGS: Vertebrae: There is exaggeration of the cervical lordosis. There is no prevertebral soft tissue swelling. There are no fractures. There is multilevel degenerative change. There is narrowing of the predental space. There is posterior disc space narrowing at multiple levels. There degenerative osteophytes largest at C5-C6 and C6-C7 Facet joints align anatomically. There is facet joint narrowing. Spinous processes align in the expected fashion. Bony structures are mildly osteopenic. There are multiple lucent lesions in vertebral bodies. Discs/spinal canal/neural foramina: Ears: There is minimal debris in external auditory canals. Soft tissues: See above. Thyroid: Thyroid is heterogeneous. Lung apices: There is minimal scarring at the lung apices. IMPRESSION: Degenerative change, no fracture; abnormal bony architecture, osteopenia versus underlying lesions 22:40 --labs demonstrate hyperglycemia and elevated serum osmolality w/o anion gap. Xray demonstrates left lower lobe infiltrate, pt with tachycardia, leukocytosis and elevated lactic acid. Pt will be admitted for hyperglycemia, syncope, PNA, and early sepsis. --Continue fluid hydration and IV antibiotics. Discussed case with Dr. Alvarez, medical service. Scribe Attestation: Documented by Jaziel Sesay, acting as a scribe for Melody Koenig MD Provider Scribe Attestation: All medical record entries made by the Scribe were at my direction and personally dictated by me. I have reviewed the chart and agree that the record accurately reflects my personal performance of the history, physical exam, medical decision making, and the department course for this patient. I have also personally directed, reviewed, and agree with the discharge instructions and disposition. Disposition - Clinical Impression Clinical Impression: Hyperglycemia, Fall from slip, trip, or stumble, Dehydration, Pneumonia Counseled Patient/Family Regarding: Studies Performed, Diagnosis - Disposition Disposition Time: 22:25 Condition: GUARDED - Pt Status Changed To: Hospital Disposition Of: Inpatient - Admit Certification Admit to Inpatient:: After my assessment, the patient will require hospitalization for at least two midnights. This is because of the severity of symptoms shown, intensity of services needed, and/or the medical risk in this patient being treated as an outpatient. - POA Present On Arrival: Falls Or Trauma, Poor Glycemic Control
--- NOTE | 2017-05-01 20:19 | CT ---
EXAM: CT Head Without Intravenous Contrast EXAM DATE/TIME: 05/01/2017 7:01 PM CLINICAL HISTORY: 71 years old, male; Injury or trauma; Fall; Initial encounter; Concussion / head injury; Consciousness not specified; Additional info: Syncope head injury TECHNIQUE: Axial computed tomography images of the head/brain without intravenous contrast. All CT scans at this facility use one or more dose reduction techniques, viz.: automated exposure control; ma/kV adjustment per patient size (including targeted exams where dose is matched to indication; i.e. head); or iterative reconstruction technique. Coronal and sagittal reformatted images were created and reviewed. COMPARISON: CT - HEAD W/O CONTRAST 2016-11-15 18:13 FINDINGS: Brain: There is prominence of sulci, gyri and ventricles. There is no midline shift. There are no intra-axial or extra axial mass lesions or areas of hemorrhage. Lundberg-white differentiation is maintained. Ventricles: See above. Bony structures: Cranial vault is intact. Soft tissues: unremarkable Sinuses: There is no acute sinusitis. Ears and mastoids: Middle ears and mastoids unremarkable. Orbits: Orbital contents are unremarkable. IMPRESSION: No acute intracranial abnormality
--- NOTE | 2017-05-01 20:25 | CT ---
EXAM: CT Cervical Spine Without Intravenous Contrast EXAM DATE/TIME: 05/01/2017 7:00 PM CLINICAL HISTORY: 71 years old, male; Injury or trauma; Fall; Initial encounter; Concussion /head injury; Additional info: Fall head injury TECHNIQUE: Axial computed tomography images of the cervical spine without intravenous contrast. All CT scans at this facility use one or more dose reduction techniques, viz.: automated exposure control; ma/kV adjustment per patient size (including targeted exams where dose is matched to indication; i.e. head); or iterative reconstruction technique. Coronal and sagittal reformatted images were created and reviewed. COMPARISON: There are no prior studies for comparison. FINDINGS: Vertebrae: There is exaggeration of the cervical lordosis. There is no prevertebral soft tissue swelling. There are no fractures. There is multilevel degenerative change. There is narrowing of the predental space. There is posterior disc space narrowing at multiple levels. There degenerative osteophytes largest at C5-C6 and C6-C7 Facet joints align anatomically. There is facet joint narrowing. Spinous processes align in the expected fashion. Bony structures are mildly osteopenic. There are multiple lucent lesions in vertebral bodies. Discs/spinal canal/neural foramina: Ears: There is minimal debris in external auditory canals. Soft tissues: See above. Thyroid: Thyroid is heterogeneous. Lung apices: There is minimal scarring at the lung apices. IMPRESSION: Degenerative change, no fracture; abnormal bony architecture, osteopenia versus underlying lesions
[2017-05-01 21:03] LABS: VENOUS BLOOD GAS BASE EXCESS 3.4 mmol/L (0.0-2.0); VENOUS BLOOD GAS PCO2 47 mmHg (40-60); VENOUS BLOOD GAS PO2 49 mm/Hg (30-55)
[2017-05-01 21:06] LABS: BASO # 0.1 K/uL (0.0-0.2); BASO % 0.5 % (0.0-2.0); EOS # 0.1 K/uL (0.0-0.7); EOS % 0.5 % (0.0-4.0); HEMOGLOBIN 13.2 g/dL (12.0-18.0); LYMPH # 1.5 K/uL (1.0-4.3); LYMPH % 12.6 % (20.0-40.0); MEAN CELL VOLUME 88.3 fl (80.0-94.0); MEAN CORPUSCULAR HEMOGLOBIN 29.2 pg (27.0-31.0); MEAN CORPUSCULAR HGB CONC 33.1 g/dL (33.0-37.0); MEAN PLATELET VOLUME 10.9 fl (7.2-11.7); MONO # 0.4 K/uL (0.0-0.8); MONO % 3.6 % (0.0-10.0); NEUT # 9.6 K/uL (1.8-7.0); NEUT % 82.8 % (50.0-75.0); NRBC % 0.1 % (0.0-0.0); RBC 4.53 Mil/uL (4.40-5.90); RED CELL DISTRIBUTION WIDTH 13.3 % (11.5-14.5); WHITE BLOOD COUNT 11.6 K/uL (4.8-10.8)
[2017-05-01] MEDS ORDERED: Insulin Regular 100 units/ml SC STA (21:10)
[2017-05-01] MEDS ORDERED: Insulin Regular 100 units/ml IVP STA (21:10)
[2017-05-01] MEDS ORDERED: Insulin Regular 100 units/ml ONE (21:24)
[2017-05-01 21:54] LABS: ALB/GLOB RATIO 0.8 (1.0-2.1); ALBUMIN 3.2 g/dL (3.5-5.0); ALT/SGPT 18 U/L (21-72); AST/SGOT 9 U/L (17-59); BLOOD UREA NITROGEN 19 mg/dl (9-20); CALCIUM 8.6 mg/dL (8.4-10.2); GFR AFRICAN-AMERICAN > 60; GFR NON-AFRICAN AMERICAN > 60
[2017-05-01 22:12] LABS: INR 1.1 (0.9-1.2); PARTIAL THROMBOPLASTIN TIME 31.4 Seconds (25.6-37.1); PROTHROMBIN TIME 12.1 Seconds (9.8-13.1)
[2017-05-01] MEDS ORDERED: Azithromycin 500 MG in Sodium Chloride 0.9% 250 ML IVPB STA ×2 (22:40→22:43)
[2017-05-01] MEDS ORDERED: cefTRIAXone (Rocephin) 1 gm Inj ONE (22:59)
[2017-05-01 23:32] LABS: URINE BILIRUBIN NEGATIVE (NEGATIVE); URINE BLOOD NEGATIVE (NEGATIVE); URINE CLARITY CLEAR (Clear); URINE COLOR STRAW (YELLOW); URINE GLUCOSE (UA) >=500 mg/dL (Normal); URINE LEUKOCYTE ESTERASE NEG Leu/uL (Negative); URINE NITRATE NEGATIVE (NEGATIVE); URINE PROTEIN NEGATIVE (NEGATIVE); URINE UROBILINOGEN 0.2-1.0 mg/dL (0.2-1.0)
[2017-05-02] MEDS ORDERED: Dextrose 50% SYRINGE Inj (50 ml) IV PRN (00:53)
[2017-05-02] MEDS ORDERED: Glucagon Recombinant 1 mg Inj IM PRN (00:53)
[2017-05-02] MEDS: Insulin Regular 100 units/ml SC SCH ×2 (07:54→12:32)
--- NOTE | 2017-05-02 09:03 | CP.PCM.HP ---
History of Present Illness - History of Present Illness History of Present Illness: Hx taken from patient and medical records Patient is poor historian and has dementia 71 year old male, with a PMHx of Alzheimer's disease/schizophrenia and diabetes , was brought to the emergency department via EMS for nose injury and bleed after a fall. Patient admits feelign weak before the fall and he thinks he passed out. Patient states this has happened before multiple times, he is noncompliant with medication. He denies any weakness, blurry vision, difficulty speaking, alcohol or substance abuse. Patient looks disheveled. Present on Admission - Present on Admission Any Indicators Present on Admission: Yes History of Uncontrolled Diabetes: Yes Review of Systems - Review of Systems All systems: reviewed and no additional remarkable complaints except - EENT Nose/Mouth/Throat: Nasal Trauma, Nose Pain - Cardiovascular Cardiovascular: Syncope Past Patient History - Past Medical History & Family History Past Medical History?: Yes - Past Social History Smoking Status: Former Smoker - CARDIAC Hx Cardiac Disorders: No - PULMONARY Hx Respiratory Disorders: No - NEUROLOGICAL Hx Alzheimer's Disease: Yes Hx Dementia: Yes - HEENT Hx HEENT Problems: No - RENAL Hx Chronic Kidney Disease: No - ENDOCRINE/METABOLIC Hx Endocrine Disorders: Yes Hx Diabetes Mellitus Type 2: Yes - HEMATOLOGICAL/ONCOLOGICAL Hx Human Immunodeficiency Virus (HIV): No - INTEGUMENTARY Hx Dermatological Problems: No - MUSCULOSKELETAL/RHEUMATOLOGICAL Hx Musculoskeletal Disorders: Yes Hx Falls: Yes - GASTROINTESTINAL Hx Gastrointestinal Disorders: No - GENITOURINARY/GYNECOLOGICAL Hx Genitourinary Disorders: No - PSYCHIATRIC Hx Schizophrenia: Yes - SURGICAL HISTORY Hx Surgeries: No - ANESTHESIA Hx Anesthesia: No Hx Anesthesia Reactions: No Hx Malignant Hyperthermia: No Meds Allergies/Adverse Reactions: Allergies Allergy/AdvReac Type Severity Reaction Status Date / Time No Known Allergies Allergy Verified 05/01/17 18:44 Physical Exam - Constitutional Appears: Non-toxic, Confused, Other (Disheveled) - Eye Exam Eye Exam: EOMI, PERRL - ENT Exam ENT Exam: Mucous Membranes Moist Additional comments: Nose excoriation - Neck Exam Neck exam: Positive for: Full Rom - Respiratory Exam Respiratory Exam: Clear to Auscultation Bilateral, NORMAL BREATHING PATTERN. absent: Rales, Wheezes - Cardiovascular Exam Cardiovascular Exam: REGULAR RHYTHM, +S1, +S2. absent: Gallop - GI/Abdominal Exam GI & Abdominal Exam: Normal Bowel Sounds, Soft. absent: Distended, Rigid - Extremities Exam Extremities exam: Positive for: full ROM. Negative for: calf tenderness - Neurological Exam Neurological exam: Alert - Skin Skin Exam: Normal Color, Warm Results - Vital Signs Recent Vital Signs: Last Vital Signs Temp 97.2 F L 05/02/17 08:56 Pulse 82 05/02/17 08:56 Resp 18 05/02/17 08:56 BP 96/59 L 05/02/17 08:56 Pulse Ox 96 05/02/17 08:56 - Labs Result Diagrams: 05/01/17 20:57 05/01/17 20:57 Labs: Laboratory Results - last 24 hr 05/01/17 05/01/17 05/01/17 19:00 19:14 20:57 WBC RBC Hgb Hct MCV MCH MCHC RDW Plt Count MPV Neut % (Auto) Lymph % (Auto) [place] % (Auto) Eos % (Auto) Baso % (Auto) Neut # (Auto) Lymph # (Auto) [place] # (Auto) Eos # (Auto) Baso # (Auto) PT INR APTT pO2 49 VBG pH 7.40 VBG pCO2 47 VBG HCO3 27.2 VBG Total CO2 30.5 H VBG O2 Sat (Calc) 89.0 H VBG Base Excess 3.4 H VBG Potassium 4.4 Sodium 134.0 Chloride 99.0 Glucose 585 H* D Lactate 2.7 H FiO2 21.0 Blood Gas Comments Vbg Crit Value Called To Letitia benitez r.n. Crit Value Called By Yady Crit Value Read Back Y Blood Gas Notified Time 2101 Potassium Carbon Dioxide Anion Gap BUN Creatinine Est GFR ( Amer) Est GFR (Non-Af Amer) POC Glucose (mg/dL) > 500 H* Random Glucose Serum Osmolality Calcium Phosphorus Magnesium Total Bilirubin AST ALT Alkaline Phosphatase Troponin I Total Protein Albumin Globulin Albumin/Globulin Ratio Venous Blood Potassium 4.4 Urine Color Urine Clarity Urine pH Ur Specific [place] Urine Protein Urine Glucose (UA) Urine Ketones Urine Blood Urine Nitrate Urine Bilirubin Urine Urobilinogen Ur Leukocyte Esterase Urine RBC (Auto) Urine Microscopic WBC Alcohol, Quantitative Influenza Typ A,B (EIA) Negative for flu a/b Blood Type Antibody Screen BBK History Checked 05/01/17 05/01/17 05/01/17 20:57 20:57 20:57 WBC 11.6 H RBC 4.53 Hgb 13.2 Hct 39.9 MCV 88.3 MCH 29.2 MCHC 33.1 RDW 13.3 Plt Count 194 MPV 10.9 Neut % (Auto) 82.8 H Lymph % (Auto) 12.6 L [place] % (Auto) 3.6 Eos % (Auto) 0.5 Baso % (Auto) 0.5 Neut # (Auto) 9.6 H Lymph # (Auto) 1.5 [place] # (Auto) 0.4 Eos # (Auto) 0.1 Baso # (Auto) 0.1 PT INR APTT pO2 VBG pH VBG pCO2 VBG HCO3 VBG Total CO2 VBG O2 Sat (Calc) VBG Base Excess VBG Potassium Sodium 137 Chloride 97 L Glucose Lactate FiO2 Blood Gas Comments Crit Value Called To Crit Value Called By Crit Value Read Back Blood Gas Notified Time Potassium 4.4 Carbon Dioxide 28 Anion Gap 16 BUN 19 Creatinine 0.7 L Est GFR ( Amer) > 60 Est GFR (Non-Af Amer) > 60 POC Glucose (mg/dL) Random Glucose 567 H* D Serum Osmolality Calcium 8.6 Phosphorus 3.3 Magnesium 2.0 Total Bilirubin 0.9 AST 9 L D ALT 18 L D Alkaline Phosphatase 100 Troponin I < 0.0120 Total Protein 7.0 Albumin 3.2 L D Globulin 3.9 Albumin/Globulin Ratio 0.8 L Venous Blood Potassium Urine Color Urine Clarity Urine pH Ur Specific [place] Urine Protein Urine Glucose (UA) Urine Ketones Urine Blood Urine Nitrate Urine Bilirubin Urine Urobilinogen Ur Leukocyte Esterase Urine RBC (Auto) Urine Microscopic WBC Alcohol, Quantitative < 10 Influenza Typ A,B (EIA) Blood Type A POSITIVE Antibody Screen Negative BBK History Checked Patient has bt 05/01/17 05/01/17 05/01/17 21:26 21:26 23:06 WBC RBC Hgb Hct MCV MCH MCHC RDW Plt Count MPV Neut % (Auto) Lymph % (Auto) [place] % (Auto) Eos % (Auto) Baso % (Auto) Neut # (Auto) Lymph # (Auto) [place] # (Auto) Eos # (Auto) Baso # (Auto) PT 12.1 INR 1.1 APTT 31.4 pO2 VBG pH VBG pCO2 VBG HCO3 VBG Total CO2 VBG O2 Sat (Calc) VBG Base Excess VBG Potassium Sodium Chloride Glucose Lactate FiO2 Blood Gas Comments Crit Value Called To Crit Value Called By Crit Value Read Back Blood Gas Notified Time Potassium Carbon Dioxide Anion Gap BUN Creatinine Est GFR ( Amer) Est GFR (Non-Af Amer) POC Glucose (mg/dL) 381 H Random Glucose Serum Osmolality 317 H Calcium Phosphorus Magnesium Total Bilirubin AST ALT Alkaline Phosphatase Troponin I Total Protein Albumin Globulin Albumin/Globulin Ratio Venous Blood Potassium Urine Color Urine Clarity Urine pH Ur Specific [place] Urine Protein Urine Glucose (UA) Urine Ketones Urine Blood Urine Nitrate Urine Bilirubin Urine Urobilinogen Ur Leukocyte Esterase Urine RBC (Auto) Urine Microscopic WBC Alcohol, Quantitative Influenza Typ A,B (EIA) Blood Type Antibody Screen BBK History Checked 05/01/17 05/02/17 05/02/17 23:23 00:09 01:29 WBC RBC Hgb Hct MCV MCH MCHC RDW Plt Count MPV Neut % (Auto) Lymph % (Auto) [place] % (Auto) Eos % (Auto) Baso % (Auto) Neut # (Auto) Lymph # (Auto) [place] # (Auto) Eos # (Auto) Baso # (Auto) PT INR APTT pO2 VBG pH VBG pCO2 VBG HCO3 VBG Total CO2 VBG O2 Sat (Calc) VBG Base Excess VBG Potassium Sodium Chloride Glucose Lactate FiO2 Blood Gas Comments Crit Value Called To Crit Value Called By Crit Value Read Back Blood Gas Notified Time Potassium Carbon Dioxide Anion Gap BUN Creatinine Est GFR ( Amer) Est GFR (Non-Af Amer) POC Glucose (mg/dL) 224 H 174 H Random Glucose Serum Osmolality Calcium Phosphorus Magnesium Total Bilirubin AST ALT Alkaline Phosphatase Troponin I Total Protein Albumin Globulin Albumin/Globulin Ratio Venous Blood Potassium Urine Color Straw Urine Clarity Clear Urine pH 6.0 Ur Specific [place] 1.032 H Urine Protein Negative Urine Glucose (UA) >=500 Urine Ketones Negative Urine Blood Negative Urine Nitrate Negative Urine Bilirubin Negative Urine Urobilinogen 0.2-1.0 Ur Leukocyte Esterase Neg Urine RBC (Auto) 1 Urine Microscopic WBC 2 Alcohol, Quantitative Influenza Typ A,B (EIA) Blood Type Antibody Screen BBK History Checked 05/02/17 07:26 WBC RBC Hgb Hct MCV MCH MCHC RDW Plt Count MPV Neut % (Auto) Lymph % (Auto) [place] % (Auto) Eos % (Auto) Baso % (Auto) Neut # (Auto) Lymph # (Auto) [place] # (Auto) Eos # (Auto) Baso # (Auto) PT INR APTT pO2 VBG pH VBG pCO2 VBG HCO3 VBG Total CO2 VBG O2 Sat (Calc) VBG Base Excess VBG Potassium Sodium Chloride Glucose Lactate FiO2 Blood Gas Comments Crit Value Called To Crit Value Called By Crit Value Read Back Blood Gas Notified Time Potassium Carbon Dioxide Anion Gap BUN Creatinine Est GFR ( Amer) Est GFR (Non-Af Amer) POC Glucose (mg/dL) 290 H Random Glucose Serum Osmolality Calcium Phosphorus Magnesium Total Bilirubin AST ALT Alkaline Phosphatase Troponin I Total Protein Albumin Globulin Albumin/Globulin Ratio Venous Blood Potassium Urine Color Urine Clarity Urine pH Ur Specific [place] Urine Protein Urine Glucose (UA) Urine Ketones Urine Blood Urine Nitrate Urine Bilirubin Urine Urobilinogen Ur Leukocyte Esterase Urine RBC (Auto) Urine Microscopic WBC Alcohol, Quantitative Influenza Typ A,B (EIA) Blood Type Antibody Screen BBK History Checked Assessment & Plan - Assessment and Plan (Free Text) Assessment: 71 y/o M with Hx of Dementia and DM admitted for syncope Syncope Recurrent Noncompliant with DM/Uncontrolled CT head no acute changes CT neck no fractures. Chronic changes CXR: Persistent chronic/recurrent mild L/lower lobe infiltrate S/P Rocephin/Zithromax ED Afebrile ETOH level normal Neurology Consult appreciated Cardiology consult appreciated NIDDM with hyperglycemia Not on treatment Endocrinology consult appreciated Insulin started F/W HgbAc1 DVT prophylaxis Lovenox
[2017-05-02] MEDS ORDERED: Iodixanol 320 MG/ML 100 ML BOTTLE IV ONE (11:25)
[2017-05-02] MEDS ORDERED: Insulin Lispro (humaLOG) 100 Units/ml Inj SC SCH (11:30)
--- NOTE | 2017-05-02 11:50 | RAD ---
HISTORY: syncope COMPARISON: Portable chest 11/15/2016. FINDINGS: LUNGS: Recurrent or chronic infiltrate increased at the left base with none noted at the right. PLEURA: No significant pleural effusion identified, no pneumothorax apparent. CARDIOVASCULAR: Normal. OSSEOUS STRUCTURES: No significant abnormalities. VISUALIZED UPPER ABDOMEN: Normal. OTHER FINDINGS: None. IMPRESSION: Recurrent or chronic anchor infiltrate increased noted at the left base mildly. Volume affected appears somewhat greater than previously shown though still mild overall. No right-sided infiltrate. No pleural effusion bilaterally.
--- NOTE | 2017-05-02 12:24 | CT ---
PROCEDURE: CT Angiography of the Brain. HISTORY: syncope/ s/p fall COMPARISON: None available. TECHNIQUE: CT angiography of the intracranial and cervical arteries was performed. Coronal and sagittal maximum intensity projection reformated images were generated. This CT exam was performed using one or more of the following dose reduction techniques: Automated exposure control, adjustment of the mA and/or kV according to patient size, and/or use of iterative reconstruction technique. FINDINGS: INTERNAL CEREBRAL ARTERIES: Unremarkable. The skull base, petrous, cavernous and supraclinoid segments are bilaterally widely patent. ANTERIOR CEREBRAL ARTERIES: There is a hypoplastic left A1 JORDANA segment with the unremarkable appearing left A2 JORDANA noted. The right internal anterior cerebral artery appears unremarkable. MIDDLE CEREBRAL ARTERIES: Unremarkable. M1 and M2 segments are widely patent. Perisylvian branches grossly symmetric. 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 The basilar arteries rather ectatic. Distal Vertebral Arteries: Bilaterally hypoplastic distal vertebral arteries noted. Posterior Cerebral Arteries: Unremarkable. Posterior Inferior Cerebellar Arteries: Unremarkable. NECK CTA: Common Carotid arteries: The bilateral common carotid appear widely patent from their origins to their bifurcations with no significant stenosis appreciated. The left common and internal carotid arteries are slightly congenitally smaller than their right-sided counterparts. No evidence to suggest common carotid artery dissection. Internal Carotid arteries: No significant stenosis is appreciated throughout the cervical internal carotid artery segments bilaterally and there is no evidence of dissection either. External Carotid arteries: Appear unremarkable bilaterally. Vertebral arteries: The cervical bilateral vertebral artery appear patent with the overall size appearing lower limits normal on a congenital basis. Incidentally, the bilateral subclavian arteries are widely patent as well as the brachiocephalic artery. ANEURYSM/ VASCULAR MALFORMATIONS: None. OTHER FINDINGS: None. IMPRESSION: No definite significant stenosis or xander karo inclusion of the intracranial or cervical arterial circulation is been demonstrated. 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
--- NOTE | 2017-05-02 14:57 | PQF GENQUE ---
Dr. Alvarez, ER MD documented the following information with no mention of this diagnosis in your documentation. Please indicate in your next progress note and/or discharge summary your agreement with internal control consultant or provide clarification that this diagnosis is not a current condition. Diagnosis: Pneumonia , Early Sepsis Documented by: ER MD Please clarify if this was an active condition(s) that resolved prior to discharge or this condition(s) was ruled out. ER:pt with tachycardia, leukocytosis and elevated lactic acid. Pt will be admitted for hyperglycemia, syncope, PNA, and early sepsis. --Continue fluid hydration and IV antibiotics Clinical Impression: Hyperglycemia, Fall from slip, trip, or stumble, Dehydration, Pneumonia POA: Falls Or Trauma, Poor Glycemic Control H and P: admitted for syncope Recurrent Noncompliant with DM/Uncontrolled CT head no acute changes CT neck no fractures. Chronic changes CXR: Persistent chronic/recurrent mild L/lower lobe infiltrate S/P Rocephin/Zithromax ED Afebrile ETOH level normal Neurology Consult appreciated Cardiology consult appreciated NIDDM with hyperglycemia Not on treatment Endocrinology consult appreciated Insulin started F/W [id number] This form is a permanent part of the medical record Clarification of your documentation is requested to better reflect the severity of illness and intensity of treatment of your patient. Indicators present [] Specify: [] [] Specify: [] [] Specify: [] [] Specify: [] Location in the medical record that reflects the above clinical findings: [] Treatment Provided: [] PHYSICIAN'S RESPONSE Based on your medical judgment of the clinical indicators outlined above please clarify the following: [] Practitioner response [] If unable to determine, please check the box, sign and date. Present On Admission (POA) Indicator: [] Present at the time of admission [] Not present at the time of admission [] Clinically Undetermined In responding to this query, please exercise your independent professional judgment. The fact that a question is asked does not imply that any particular answer is desired or expected. Thank you for your clarification on this documentation. If you have any questions please call. * Thank you, Yady Dhaliwal RN ext. #[phone] MTDD
[2017-05-02] MEDS: Insulin Lispro (humaLOG) 100 Units/ml Inj SC SCH ×3 (16:26→21:53)
--- NOTE | 2017-05-02 18:23 | CARD ---
APPROVED REPORT EXAM: Two-dimensional and M-mode echocardiogram with Doppler and color Doppler. Other Information Quality : GoodRhythm : NSR INDICATION Syncope 2D DIMENSIONS IVSd1.11 (0.7-1.1cm)LVDd4.19 (3.9-5.9cm) LVOT Diameter1.98 (1.8-2.4cm)PWd0.80 (0.7-1.1cm) IVSs1.25 (0.8-1.2cm)LVDs2.98 (2.5-4.0cm) FS (%) 28.8 %PWs0.97 (0.8-1.2cm) LVEF (%)55.0 (>50%) M-Mode DIMENSIONS Left Atrium (MM)4.25 (2.5-4.0cm)IVSd0.77 (0.7-1.1cm) Aortic Root3.31 (2.2-3.7cm)LVDd5.16 (4.0-5.6cm) Aortic Cusp Exc.2.07 (1.5-2.0cm)PWd0.97 (0.7-1.1cm) IVSs1.10 cmFS (%) 34 % LVDs3.39 (2.0-3.8cm)PWs1.35 cm Mitral Valve MV E Ylmtxorl16.4cm/sMV DECEL [id number] A Qqocgipj29.7cm/s MV [id number] ratio1.1MVA (PHT)3.36cm2 TDI Lateral E' Peak V12.14cm/sMedial E' Peak V6.52cm/sE/Lateral E'4.6 E/Medial E'8.7 Pulmonary Valve PV Peak Jaodnufq21.2cm/s LEFT VENTRICLE The left ventricle is normal size. There is borderline concentric left ventricular hypertrophy. The left ventricular function is normal. The left ventricular ejection fraction is within the normal range. There is normal LV segmental wall motion. Transmitral Doppler flow pattern is Grade I-abnormal relaxation pattern. RIGHT VENTRICLE The right ventricle is normal size. There is normal right ventricular wall thickness. The right ventricular systolic function is normal. ATRIA The left atrium is mildly dilated. The right atrium size is normal. AORTIC VALVE The aortic valve is not well visualized. No aortic regurgitation is present. There is no aortic valvular stenosis. MITRAL VALVE The mitral valve is mildly thickened. There is no mitral valve stenosis. Mitral regurgitation is trace. TRICUSPID VALVE The tricuspid valve is normal in structure. There is no tricuspid valve regurgitation noted. PULMONIC VALVE The pulmonary valve is normal in structure. There is no pulmonic valvular regurgitation. GREAT VESSELS The aortic root is normal in size. The IVC is normal in size and collapses >50% with inspiration. PERICARDIAL EFFUSION The pericardium appears normal. <Conclusion> The left ventricle is normal size. There is borderline concentric left ventricular hypertrophy. The left ventricular function is normal. The left ventricular ejection fraction is within the normal range. There is normal LV segmental wall motion. Transmitral Doppler flow pattern is Grade I-abnormal relaxation pattern.
[2017-05-02] MEDS: Azithromycin 500 MG in Sodium Chloride 0.9% 250 ML IVPB SCH (21:45)
[2017-05-02] MEDS ORDERED: Insulin Detemir 100 Units/ml Inj SC SCH ×2 (22:00)
--- NOTE | 2017-05-02 22:16 | CARD ---
APPROVED REPORT EKG Measurement Heart [id number] <Conclusion> Normal sinus rhythm Normal ECG
--- NOTE | 2017-05-03 00:32 | CON ---
ENDOCRINOLOGY CONSULTATION DATE: LOCATION: Room 402. HISTORY OF PRESENT ILLNESS: This is a 71-year-old male with known history of Alzheimer's dementia with underlying schizophrenia and is now being referred for diabetic evaluation because of persistent hyperglycemic accelerations as noted thereof. PAST MEDICAL HISTORY: History of type 2 diabetes, apparently on oral hypoglycemic therapy which he discontinued few months ago prior to admission, history of hypertensive cardiovascular disease and dyslipidemia, history of underlying schizophrenia and currently on psychotropic medications and history of senile dementia of the Alzheimer's type as noted. FAMILY HISTORY: Positive for hypertension and diabetes. SOCIAL HISTORY: The patient lives alone and with no close family members in [facility] ([facility] He has a prior history of smoking, but quit a few years ago. REVIEW OF SYSTEMS: As mentioned above; admits to generalized body weakness with episodic dizziness and lightheadedness, worse on the day of admission. Also admits to increasing hypersomnolence and lethargy with bifrontal headaches and visual blurring as noted. Also admits to frequent near syncopal episodes and actually has frequent falls with recent facial and nasal injury as noted. No chest pains or palpitations or PND. His oral intake has been variable with nausea, dyspepsia and vague upper abdominal pains. Also admits to habitual constipation with marked polyuria, nocturia and polydipsia. PHYSICAL EXAMINATION GENERAL: This is an average built male in no apparent distress. VITAL SIGNS: Blood pressure of 140/80, pulse of 70 beats per minute regular, temperature 98 and respirations 20. Height is 5 feet 6 inches and weight is 160 pounds. HEENT: Head normocephalic. Eyes anicteric with pink conjunctivae. Funduscopy not possible at this time. Ears, nose and throat otherwise normal. NECK: Supple. Thyroid gland is normal in size. No carotid bruits or any cervical adenopathy. CARDIOPULMONARY: Some adynamic precordium. S1 and S2 is rapid and regular. LUNGS: Clear to auscultation. ABDOMEN: Flat and soft with positive bowel sounds. EXTREMITIES: No peripheral edema. Pulses are +2 bilaterally. LABORATORY DATA: Chemistries showed a BUN of 19, sodium 137, potassium 4.4, chloride 97, CO2 of 28, glucose 567 and creatinine 0.7. His glucose levels have ranged from 290 to 398 mg/dL. ASSESSMENT: This is a 71-year-old male with uncontrolled and decompensated type-2 insulin requiring diabetes presenting here with hyperosmolar hyperglycemic state and dehydration with marked hyperglycemic accelerations as noted thereof. He also has diabetic retinopathy and polyneuropathy as noted and moreover, he also has Alzheimer's dementia with underlying chronic schizoaffective disorder with schizophrenia and currently lives alone at this time with no close family support. PLAN: Plan of management as discussed with the nursing staff, the biggest concern at this time would be the patient's home diabetic management and clearly he is insulin-requiring at this time because of the marked hyperglycemic accelerations as noted, but there is a very big factor of the patient safety and the patient's reliability on his day to day glucose monitoring and insulin self injections administration, which is not possible because of the underlying dementia and mental and emotional incapacity. Plan of management as discussed with the nursing staff, we will start him on a basal and bolus insulin drug combination at least for inpatient diabetic management to lower the glucose toxicity and hyperglycemic accelerations as noted thereof. We will start him with Levemir given as 20 units subcu at bedtime daily to start tonight. We will increase the Humalog to 8 units subcu t.i.d. before meals to start at dinnertime today as ordered. We will also be adding oral hypoglycemic drug therapy given in combination to hopefully send him home on the above mentioned drug combination as indicated. We will start her with glipizide given as 10 mg b.i.d. with Januvia at 100 mg once daily in the morning and metformin at 500 mg b.i.d. after meals to start today. We will modify the coverage scale to tomeka hypoglycemia and detailed orders have been given. We will obtain serial chemistries and supplement accordingly needed. We will also consult with diabetic nurse educator regarding insulin self-administration and also regarding whether he could safely be relied on to self administer his own insulin injections which I strongly doubt would be possible because of the underlying Alzheimer's dementia. We will obtain serial chemistries and supplement accordingly needed. We will follow. Deisy Vizcarra MD
[2017-05-03 06:32] LABS: HEMOGLOBIN 13.1 g/dL (12.0-18.0); MEAN CELL VOLUME 88.1 fl (80.0-94.0); MEAN CORPUSCULAR HEMOGLOBIN 29.4 pg (27.0-31.0); MEAN CORPUSCULAR HGB CONC 33.4 g/dL (33.0-37.0); RBC 4.47 Mil/uL (4.40-5.90); RED CELL DISTRIBUTION WIDTH 13.6 % (11.5-14.5); WHITE BLOOD COUNT 14.3 K/uL (4.8-10.8)
[2017-05-03 06:40] LABS: ALB/GLOB RATIO 0.7 (1.0-2.1); ALBUMIN 2.9 g/dL (3.5-5.0); ALT/SGPT 16 U/L (21-72); AST/SGOT 11 U/L (17-59); BLOOD UREA NITROGEN 18 mg/dl (9-20); CALCIUM 8.4 mg/dL (8.4-10.2); GFR AFRICAN-AMERICAN > 60; GFR NON-AFRICAN AMERICAN > 60
--- NOTE | 2017-05-03 08:21 | CP.PCM.PN ---
Subjective - Date & Time of Evaluation Date of Evaluation: 05/03/17 Time of Evaluation: 07:40 - Subjective Subjective: Patient evaluated with Dr Alvarez during morning rounds. Stable. No acute distress. No events overnight. Patient ambulating freely. Requests to be evaluated by Psychiatry for medications. Has no other complains Objective - Vital Signs/Intake and Output Vital Signs (last 24 hours): Temp Pulse Resp BP Pulse Ox 97.3 F L 74 18 120/50 L 96 05/03/17 07:57 05/03/17 07:57 05/03/17 07:57 05/03/17 07:57 05/03/17 07:57 - Medications Medications: Current Medications Acetaminophen (Tylenol 325mg Tab) 650 mg PO Q6 PRN PRN Reason: Pain, moderate (4-7) Aspirin (Aspirin Chewable) 81 mg PO DAILY [facility] Last Admin: 05/02/17 12:35 Dose: 81 mg Dextrose (Dextrose 50% Inj) 0 ml IV STAT PRN; Protocol PRN Reason: Hypoglycemia Protocol Dextrose (Glutose 15) 0 gm PO ONCE PRN; Protocol PRN Reason: Hypoglycemia Protocol Enoxaparin Sodium (Lovenox) 40 mg SC DAILY [facility] PRN Reason: Protocol Glipizide (Glucotrol) 10 mg PO BIDAC [facility] Last Admin: 05/02/17 16:53 Dose: 10 mg Glucagon (Glucagen Diagnostic Kit) 0 mg IM STAT PRN; Protocol PRN Reason: Hypoglycemia Protocol Azithromycin 500 mg/ Sodium (Chloride) 250 mls @ 250 mls/hr IVPB DAILY [facility] PRN Reason: Protocol Last Admin: 05/02/17 21:45 Dose: 250 mls/hr Ceftriaxone Sodium 2 gm/ (Sodium Chloride) 100 mls @ 100 mls/hr IVPB DAILY [facility] PRN Reason: Protocol Insulin Detemir (Levemir) 20 units SC HS [facility] Last Admin: 05/02/17 21:48 Dose: 20 units Insulin Human Lispro (Humalog) 8 units SC AC [facility] Last Admin: 05/02/17 16:53 Dose: 8 units Insulin Human Lispro (Humalog) 0 units SC ACHS [facility] PRN Reason: Protocol Last Admin: 05/02/17 21:53 Dose: Not Given Metformin HCl (Glucophage) 500 mg PO BIDWM [facility] Last Admin: 05/02/17 16:52 Dose: 500 mg Olanzapine (Zyprexa) 15 mg PO ONCE [facility] Sitagliptin Phosphate (Januvia) 100 mg PO DAILY [facility] - Labs Labs: 05/03/17 06:20 05/03/17 06:20 PT 12.1 Seconds (9.8-13.1) 05/01/17 21:26 INR 1.1 (0.9-1.2) 05/01/17 21:26 APTT 31.4 Seconds (25.6-37.1) 05/01/17 21:26 - Constitutional Appears: Non-toxic, No Acute Distress - Head Exam Head Exam: NORMAL INSPECTION - Eye Exam Eye Exam: EOMI, PERRL - ENT Exam ENT Exam: Mucous Membranes Moist - Neck Exam Neck Exam: Full ROM - Respiratory Exam Respiratory Exam: NORMAL BREATHING PATTERN. absent: Rales, Wheezes - Cardiovascular Exam Cardiovascular Exam: REGULAR RHYTHM, +S1, +S2. absent: Gallop - GI/Abdominal Exam GI & Abdominal Exam: Soft, Normal Bowel Sounds. absent: Tenderness - Neurological Exam Neurological Exam: Alert, Awake. absent: Oriented x3 - Psychiatric Exam Psychiatric exam: Anxious - Skin Skin Exam: Normal Color, Warm Assessment and Plan - Assessment and Plan (Free Text) Assessment: 71 y/o M with Hx of Dementia and DM admitted for syncope Syncope Unknown etiology Uncontrolled DM Neurology Consult appreciated Cardiology consult appreciated Endocrinology consult appreciated CAP Sepsis ruled out Unknown type WBC slightly elevated Suspected, acute, present on admission C/W Rocephin and Zithromax Asymptomatic CXR: Infiltrates high risk patient NIDDM with hyperglycemia Improved Endocrinology consult appreciated C/W current plan DVT prophylaxis Lovenox
[2017-05-03] MEDS: Insulin Lispro (humaLOG) 100 Units/ml Inj SC SCH ×5 (08:31→17:17)
[2017-05-03] MEDS: Enoxaparin 40 mg Syringe SC SCH (08:32)
--- NOTE | 2017-05-03 08:41 | PQF GENQUE ---
Dr. Alvarez, Etiology of Syncope? if known: after the work up is completed OR: Unable to determine ER: 22:40:labs demonstrate hyperglycemia and elevated serum osmolality w/o anion gap. Xray demonstrates left lower lobe infiltrate, pt with tachycardia, leukocytosis and elevated lactic acid. Pt will be admitted for hyperglycemia, syncope, PNA, and early sepsis. Clinical Impression: Hyperglycemia, Fall from slip, trip, or stumble, Dehydration, Pneumonia H and P: with Hx of Dementia and DM admitted for syncope Syncope Recurrent Noncompliant with DM/Uncontrolled CT head no acute changes CT neck no fractures. Chronic changes CXR: Persistent chronic/recurrent mild L/lower lobe infiltrate S/P Rocephin/Zithromax ED Afebrile ETOH level normal Neurology Consult appreciated Cardiology consult appreciated NIDDM with hyperglycemia Not on treatment Endocrinology consult appreciated Insulin started F/W HgbAc1 Endo consult: with uncontrolled and decompensated type-2 insulin requiring diabetes presenting here with hyperosmolar hyperglycemic state and dehydration with marked hyperglycemic accelerations as noted thereof. He also has diabetic retinopathy and polyneuropathy as noted and moreover, he also has Alzheimer's dementia with underlying chronic schizoaffective disorder with schizophrenia This form is a permanent part of the medical record Clarification of your documentation is requested to better reflect the severity of illness and intensity of treatment of your patient. Indicators present [] Specify: [] [] Specify: [] [] Specify: [] [] Specify: [] Location in the medical record that reflects the above clinical findings: [] Treatment Provided: [] PHYSICIAN'S RESPONSE Based on your medical judgment of the clinical indicators outlined above please clarify the following: [] Practitioner response [] If unable to determine, please check the box, sign and date. Present On Admission (POA) Indicator: [] Present at the time of admission [] Not present at the time of admission [] Clinically Undetermined In responding to this query, please exercise your independent professional judgment. The fact that a question is asked does not imply that any particular answer is desired or expected. Thank you for your clarification on this documentation. If you have any questions please call. * Thank you, Yady Dhaliwal RN ext. #[phone] MTDD
[2017-05-03] MEDS: cefTRIAXone 2 GM in Sodium Chloride 0.9% 100 ML IVPB SCH (09:44)
[2017-05-03] MEDS: Azithromycin 500 MG in Sodium Chloride 0.9% 250 ML IVPB SCH (09:46)
--- NOTE | 2017-05-03 10:10 | CP.PCM.CON ---
History of Present Illness - History of Present Illness History of Present Illness: This 71-year-old man with a history off schizophrenia as well as dementia was brought to the hospital after having had a fall at home. The patient is not able to say if he felt dizzy or blackout. The patient is a poor historian. He is a diabetic who has not been taking his medications regularly and has arrived in the hospital severely hyperglycemic. He denies any chest pains prior myocardial infarction or symptoms of congestive cardiac failure. Physical examination shows an elderly man who is mildly confused about his circumstances around his admission to the hospital. He is alert and awake and answers simple questions in a rambling way. He was able to walk to the bathroom and walked back an assisted without lightheadedness or unsteady gait. Telemetry shows steady sinus rhythm at physiological rates. His blood pressure was 110/70 millimeters of mercury. His jugular venous pressure was not elevated and there was no edema or his lower extremity. His pedal pulses are extremely feeble but distinct present. There were no carotid bruits. The apex was vaguely felt in the fifth space the first and second heart sounds were normal. There was no murmur. There was no gallop or rales. Abdomen was soft liver and spleen are not palpable. His electro-cardiogram showed sinus rhythm with nonspecific ST-T changes, no Q waves were detected on his electro-cardiogram. His echocardiogram showed preserved left ventricular systolic function. His lab data was noted. The patient was severely hyperglycemic and was seen by an resolution analyst who has initiated initial treatment though long-term management of his hyperglycemia would be difficult given his psychiatric history. Impression: Unwitnessed fall in a patient with dementia. Hyperglycemia. No cardiovascular issue is detected at this juncture. Past Patient History - Past Medical History & Family History Past Medical History?: Yes - Past Social History Smoking Status: Former Smoker - CARDIAC Hx Cardiac Disorders: No - PULMONARY Hx Respiratory Disorders: No - NEUROLOGICAL Hx Neurological Disorder: Yes Hx Alzheimer's Disease: Yes Hx Dementia: Yes - HEENT Hx HEENT Problems: No - RENAL Hx Chronic Kidney Disease: No - ENDOCRINE/METABOLIC Hx Endocrine Disorders: Yes Hx Diabetes Mellitus Type 2: Yes - HEMATOLOGICAL/ONCOLOGICAL Hx Blood Disorders: No Hx Blood Transfusions: No Hx Human Immunodeficiency Virus (HIV): No - INTEGUMENTARY Hx Dermatological Problems: No - MUSCULOSKELETAL/RHEUMATOLOGICAL Hx Musculoskeletal Disorders: Yes Hx Falls: Yes - GASTROINTESTINAL Hx Gastrointestinal Disorders: No - GENITOURINARY/GYNECOLOGICAL Hx Genitourinary Disorders: No - PSYCHIATRIC Hx Psychophysiologic Disorder: Yes Hx Schizophrenia: Yes Hx Substance Use: No - SURGICAL HISTORY Hx Surgeries: No - ANESTHESIA Hx Anesthesia: No Hx Anesthesia Reactions: No Hx Malignant Hyperthermia: No Meds Allergies/Adverse Reactions: Allergies Allergy/AdvReac Type Severity Reaction Status Date / Time No Known Allergies Allergy Verified 05/01/17 18:44 - Medications Medications: Current Medications Acetaminophen (Tylenol 325mg Tab) 650 mg PO Q6 PRN PRN Reason: Pain, moderate (4-7) Aspirin (Aspirin Chewable) 81 mg PO DAILY [facility] Last Admin: 05/03/17 09:44 Dose: 81 mg Dextrose (Dextrose 50% Inj) 0 ml IV STAT PRN; Protocol PRN Reason: Hypoglycemia Protocol Dextrose (Glutose 15) 0 gm PO ONCE PRN; Protocol PRN Reason: Hypoglycemia Protocol Enoxaparin Sodium (Lovenox) 40 mg SC DAILY [facility] PRN Reason: Protocol Last Admin: 05/03/17 08:32 Dose: 40 mg Glipizide (Glucotrol) 10 mg PO BIDAC [facility] Last Admin: 05/03/17 08:31 Dose: 10 mg Glucagon (Glucagen Diagnostic Kit) 0 mg IM STAT PRN; Protocol PRN Reason: Hypoglycemia Protocol Azithromycin 500 mg/ Sodium (Chloride) 250 mls @ 250 mls/hr IVPB DAILY [facility] PRN Reason: Protocol Last Admin: 05/03/17 09:46 Dose: 250 mls/hr Ceftriaxone Sodium 2 gm/ (Sodium Chloride) 100 mls @ 100 mls/hr IVPB DAILY [facility] PRN Reason: Protocol Last Admin: 05/03/17 09:44 Dose: 100 mls/hr Insulin Detemir (Levemir) 20 units SC HS [facility] Last Admin: 05/02/17 21:48 Dose: 20 units Insulin Human Lispro (Humalog) 8 units SC AC [facility] Last Admin: 05/03/17 08:32 Dose: 8 units Insulin Human Lispro (Humalog) 0 units SC ACHS [facility] PRN Reason: Protocol Last Admin: 05/03/17 08:31 Dose: Not Given Metformin HCl (Glucophage) 500 mg PO BIDWM [facility] Last Admin: 05/03/17 08:31 Dose: 500 mg Olanzapine (Zyprexa) 15 mg PO ONCE [facility] Sitagliptin Phosphate (Januvia) 100 mg PO DAILY [facility] Last Admin: 05/03/17 08:31 Dose: 100 mg Results - Vital Signs Recent Vital Signs: Last Vital Signs Temp 97.3 F L 05/03/17 07:57 Pulse 74 05/03/17 07:57 Resp 18 05/03/17 07:57 BP 120/50 L 05/03/17 07:57 Pulse Ox 96 05/03/17 07:57 - Labs Result Diagrams: 05/03/17 06:20 05/03/17 06:20 Labs: Laboratory Results - last 24 hr 05/02/17 05/02/17 05/02/17 09:22 10:36 10:36 WBC RBC Hgb Hct MCV MCH MCHC RDW Plt Count Sodium Potassium Chloride Carbon Dioxide Anion Gap BUN Creatinine Est GFR ( Amer) Est GFR (Non-Af Amer) POC Glucose (mg/dL) Random Glucose Hemoglobin A1c 13.2 H Calcium Total Bilirubin AST ALT Alkaline Phosphatase Total Protein Albumin Globulin Albumin/Globulin Ratio Triglycerides 66 D Cholesterol 117 LDL Cholesterol Direct 68 HDL Cholesterol 34 Vitamin B12 902 25-OH Vitamin D Total 48.3 TSH 3rd Generation 3.32 05/02/17 05/02/17 05/02/17 11:56 15:39 20:57 WBC RBC Hgb Hct MCV MCH MCHC RDW Plt Count Sodium Potassium Chloride Carbon Dioxide Anion Gap BUN Creatinine Est GFR ( Amer) Est GFR (Non-Af Amer) POC Glucose (mg/dL) 398 H 103 80 Random Glucose Hemoglobin A1c Calcium Total Bilirubin AST ALT Alkaline Phosphatase Total Protein Albumin Globulin Albumin/Globulin Ratio Triglycerides Cholesterol LDL Cholesterol Direct HDL Cholesterol Vitamin B12 25-OH Vitamin D Total TSH 3rd Generation 05/03/17 05/03/17 05/03/17 05:28 06:20 06:20 WBC 14.3 H RBC 4.47 Hgb 13.1 Hct 39.4 MCV 88.1 MCH 29.4 MCHC 33.4 RDW 13.6 Plt Count 218 Sodium 145 Potassium 3.5 L Chloride 105 Carbon Dioxide 30 Anion Gap 14 BUN 18 Creatinine 0.5 L Est GFR ( Amer) > 60 Est GFR (Non-Af Amer) > 60 POC Glucose (mg/dL) 100 Random Glucose 69 L Hemoglobin A1c Calcium 8.4 Total Bilirubin 0.4 AST 11 L D ALT 16 L Alkaline Phosphatase 85 Total Protein 6.8 Albumin 2.9 L Globulin 3.9 Albumin/Globulin Ratio 0.7 L Triglycerides Cholesterol LDL Cholesterol Direct HDL Cholesterol Vitamin B12 25-OH Vitamin D Total TSH 3rd Generation
[2017-05-03] MEDS ORDERED: Potassium Chloride 20 mEq ER Tab PO ONE (10:11)
--- NOTE | 2017-05-03 21:10 | PN ---
ENDOCRINOLOGY FOLLOWUP NOTE DATE: LOCATION: Room 402. SUBJECTIVE: This is a 71-year-old male with recent uncontrolled type 2 insulin-requiring diabetes now being followed closely for metabolic management. He presented here with marked hyperglycemic accelerations and dehydration and is now improving clinically and metabolically as noted thereof. His oral intake is much improved at this time as per the nursing staff as noted. The biggest concern at this time is the patient's social condition specially his living home alone with no family support at this time. Moreover, he is also unstable emotional a and psychologically and is being seen by Psychiatry at this time. Moreover, he has a frequent near syncopal episodes and also frequent falls as noted prompting even this current admission. His glucose values are still fluctuating and are ranging from 290-398 mg/dL. His glucose values at lunchtime today ranged from 100 to 137 mg/dL. The latest chemistry showed a BUN of 18, sodium 145, potassium 3.5, chloride 105, CO2 of 30, glucose 69 and creatinine 0.5. ASSESSMENT: This is a 71-year-old male with uncontrolled and decompensated type 2 insulin-requiring diabetes presenting here with marked hyperglycemic accelerations and also concomitant near syncopal and syncopal episodes with frequent falls related to with severe diabetic polyneuropathy as noted thereof. He is also undergoing neurological workup at this time to exclude any cerebrovascular event causing the aforementioned. PLAN OF MANAGEMENT: As discussed with the patient and nursing staff, we will modify his current insulin regimen and actually discontinue now all the Humalog given as 8 units t.i.d. before meals as ordered. We will lower the basal insulin to Levemir given as 10 units subcu at bedtime daily as ordered. We will continue the triple oral hypoglycemic drug therapy as given with Januvia given as 100 mg daily, with metformin at 500 mg b.i.d. and glipizide at 10 mg b.i.d. as ordered. We will continue the low-dose correction scale using Humalog insulin as ordered. We will obtain serial chemistries and supplement accordingly needed. We will follow. Deisy Vizcarra MD
[2017-05-03] MEDS ORDERED: Insulin Detemir 100 Units/ml Inj SC SCH (22:00)
[2017-05-04] MEDS: Insulin Lispro (humaLOG) 100 Units/ml Inj SC SCH ×2 (00:11→12:03)
[2017-05-04 05:00] VITALS: O2SAT 97
[2017-05-04 08:02] VITALS: BP 101/68; PULSE 78; RESP 20; TEMP 97.7
[2017-05-04] MEDS: Enoxaparin 40 mg Syringe SC SCH (08:46)
[2017-05-04] MEDS: cefTRIAXone 2 GM in Sodium Chloride 0.9% 100 ML IVPB SCH (08:48)
[2017-05-04 10:01] LABS: MEAN CELL VOLUME 89.1 fl (80.0-94.0); MEAN CORPUSCULAR HEMOGLOBIN 29.8 pg (27.0-31.0); MEAN CORPUSCULAR HGB CONC 33.4 g/dL (33.0-37.0); RBC 4.38 Mil/uL (4.40-5.90); RED CELL DISTRIBUTION WIDTH 13.5 % (11.5-14.5); WHITE BLOOD COUNT 8.9 K/uL (4.8-10.8)
[2017-05-04 10:12] LABS: BLOOD UREA NITROGEN 15 mg/dl (9-20); CALCIUM 8.6 mg/dL (8.4-10.2); GFR AFRICAN-AMERICAN > 60; GFR NON-AFRICAN AMERICAN > 60
--- NOTE | 2017-05-04 10:27 | CP.PCM.PN ---
Subjective - Date & Time of Evaluation Date of Evaluation: 05/04/17 Time of Evaluation: 10:18 - Subjective Subjective: Mr. Larson was seen and examined at the bedside. He is alert, oriented in all spheres. He denies any headache, dizziness, nausea, vomiting, lightheadedness, weakness. He refused to follow simple commands. He further states of feeling better with the IVF. CTA of the head and neck showed no definite significant stenosis or bonafide inclusion of the intracranial or cervical arterial circulation. 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 There was no untoward events overnight. Objective - Vital Signs/Intake and Output Vital Signs (last 24 hours): Temp Pulse Resp BP Pulse Ox 97.7 F 78 20 101/68 97 05/04/17 08:00 05/04/17 08:00 05/04/17 08:00 05/04/17 08:00 05/04/17 08:00 - Medications Medications: Current Medications Acetaminophen (Tylenol 325mg Tab) 650 mg PO Q6 PRN PRN Reason: Pain, moderate (4-7) Last Admin: 05/04/17 06:28 Dose: 650 mg Aspirin (Aspirin Chewable) 81 mg PO DAILY [facility] Last Admin: 05/04/17 08:45 Dose: 81 mg Dextrose (Dextrose 50% Inj) 0 ml IV STAT PRN; Protocol PRN Reason: Hypoglycemia Protocol Dextrose (Glutose 15) 0 gm PO ONCE PRN; Protocol PRN Reason: Hypoglycemia Protocol Enoxaparin Sodium (Lovenox) 40 mg SC DAILY [facility] PRN Reason: Protocol Last Admin: 05/04/17 08:46 Dose: 40 mg Glipizide (Glucotrol) 10 mg PO BIDAC [facility] Last Admin: 05/04/17 08:46 Dose: 10 mg Glucagon (Glucagen Diagnostic Kit) 0 mg IM STAT PRN; Protocol PRN Reason: Hypoglycemia Protocol Azithromycin 500 mg/ Sodium (Chloride) 250 mls @ 250 mls/hr IVPB DAILY [facility] PRN Reason: Protocol Last Admin: 05/03/17 09:46 Dose: 250 mls/hr Ceftriaxone Sodium 2 gm/ (Sodium Chloride) 100 mls @ 100 mls/hr IVPB DAILY [facility] PRN Reason: Protocol Last Admin: 05/04/17 08:48 Dose: 100 mls/hr Insulin Detemir (Levemir) 10 units SC [facility] Last Admin: 05/03/17 21:54 Dose: 10 units Insulin Human Lispro (Humalog) 0 units SC [facility] PRN Reason: Protocol Last Admin: 05/04/17 00:11 Dose: Not Given Metformin HCl (Glucophage) 500 mg PO BIDWM [facility] Last Admin: 05/04/17 08:46 Dose: 500 mg Olanzapine (Zyprexa) 15 mg PO ONCE [facility] Sitagliptin Phosphate (Januvia) 100 mg PO DAILY [facility] Last Admin: 05/04/17 08:46 Dose: 100 mg - Labs Labs: 05/04/17 09:50 05/04/17 09:50 PT 12.1 Seconds (9.8-13.1) 05/01/17 21:26 INR 1.1 (0.9-1.2) 05/01/17 21:26 APTT 31.4 Seconds (25.6-37.1) 05/01/17 21:26 - Constitutional Appears: No Acute Distress - Head Exam Head Exam: NORMAL INSPECTION - Neurological Exam Neurological Exam: Alert, Awake, Oriented x3 Neuro motor strength exam: Left Upper Extremity: 5, Right Upper Extremity: 5, Left Lower Extremity: 5, Right Lower Extremity: 5 Additional comments: He is alert, oriented, moves all extremities and ambulates with a steady gait. Assessment and Plan (1) Dizziness Assessment & Plan: Case discussed with Dr. sterling, continue all current medical, physical therapies. Recommend blood pressure control and glycemic control. Status: Acute
[2017-05-04] MEDS: Azithromycin 500 MG in Sodium Chloride 0.9% 250 ML IVPB SCH (10:31)
--- NOTE | 2017-05-04 12:13 | CP.PCM.CON ---
History of Present Illness - History of Present Illness History of Present Illness: 71 year old male, with a PMHx of Alzheimer's disease/schizophrenia and diabetes , was brought to the emergency department via EMS for nose injury and bleed after a fall. Patient admits feelign weak before the fall and he thinks he passed out. pt on evaluation was calm cooperative, no reported changes in sleep or appetite denied any current psychotic symptoms, reported non compliant with zyprexa as he has been unable to commute to his psychiatrist Dr Campos Past Patient History - Past Medical History & Family History Past Medical History?: Yes - Past Social History Smoking Status: Former Smoker - CARDIAC Hx Cardiac Disorders: No - PULMONARY Hx Respiratory Disorders: No - NEUROLOGICAL Hx Neurological Disorder: Yes Hx Alzheimer's Disease: Yes Hx Dementia: Yes - HEENT Hx HEENT Problems: No - RENAL Hx Chronic Kidney Disease: No - ENDOCRINE/METABOLIC Hx Endocrine Disorders: Yes Hx Diabetes Mellitus Type 2: Yes - HEMATOLOGICAL/ONCOLOGICAL Hx Blood Disorders: No Hx Blood Transfusions: No Hx Human Immunodeficiency Virus (HIV): No - INTEGUMENTARY Hx Dermatological Problems: No - MUSCULOSKELETAL/RHEUMATOLOGICAL Hx Musculoskeletal Disorders: Yes Hx Falls: Yes - GASTROINTESTINAL Hx Gastrointestinal Disorders: No - GENITOURINARY/GYNECOLOGICAL Hx Genitourinary Disorders: No - PSYCHIATRIC Hx Psychophysiologic Disorder: Yes Hx Schizophrenia: Yes Hx Substance Use: No - SURGICAL HISTORY Hx Surgeries: No - ANESTHESIA Hx Anesthesia: No Hx Anesthesia Reactions: No Hx Malignant Hyperthermia: No Meds Home Medications: Home Medication List Medication Instructions Recorded Confirmed Type Aspirin [Aspirin Chewable] 81 mg PO DAILY #30 chew 05/04/17 Rx Azithromycin [Zithromax] 500 mg PO DAILY #5 tablet 05/04/17 Rx GlipiZIDE [Glucotrol] 10 mg PO BIDAC #60 tab 05/04/17 Rx OLANZapine [ZyPREXA] 5 mg PO HS #30 tab 05/04/17 Rx SITagliptin [Januvia] 100 mg PO DAILY #30 tab 05/04/17 Rx metFORMIN [glucOPHAGE] 500 mg PO BIDWM #60 tab 05/04/17 Rx Allergies/Adverse Reactions: Allergies Allergy/AdvReac Type Severity Reaction Status Date / Time No Known Allergies Allergy Verified 05/01/17 18:44 - Medications Medications: Current Medications Acetaminophen (Tylenol 325mg Tab) 650 mg PO Q6 PRN PRN Reason: Pain, moderate (4-7) Last Admin: 05/04/17 06:28 Dose: 650 mg Aspirin (Aspirin Chewable) 81 mg PO DAILY [facility] Last Admin: 05/04/17 08:45 Dose: 81 mg Dextrose (Dextrose 50% Inj) 0 ml IV STAT PRN; Protocol PRN Reason: Hypoglycemia Protocol Dextrose (Glutose 15) 0 gm PO ONCE PRN; Protocol PRN Reason: Hypoglycemia Protocol Enoxaparin Sodium (Lovenox) 40 mg SC DAILY [facility] PRN Reason: Protocol Last Admin: 05/04/17 08:46 Dose: 40 mg Glipizide (Glucotrol) 10 mg PO BIDAC [facility] Last Admin: 05/04/17 08:46 Dose: 10 mg Glucagon (Glucagen Diagnostic Kit) 0 mg IM STAT PRN; Protocol PRN Reason: Hypoglycemia Protocol Azithromycin 500 mg/ Sodium (Chloride) 250 mls @ 250 mls/hr IVPB DAILY [facility] PRN Reason: Protocol Last Admin: 05/04/17 10:31 Dose: 250 mls/hr Ceftriaxone Sodium 2 gm/ (Sodium Chloride) 100 mls @ 100 mls/hr IVPB DAILY [facility] PRN Reason: Protocol Last Admin: 05/04/17 08:48 Dose: 100 mls/hr Insulin Detemir (Levemir) 10 units SC HS [facility] Last Admin: 05/03/17 21:54 Dose: 10 units Insulin Human Lispro (Humalog) 0 units SC [facility] PRN Reason: Protocol Last Admin: 05/04/17 12:03 Dose: Not Given Metformin HCl (Glucophage) 500 mg PO BIDWM [facility] Last Admin: 05/04/17 08:46 Dose: 500 mg Olanzapine (Zyprexa) 15 mg PO ONCE [facility] Olanzapine (Zyprexa) 5 mg PO HS [facility] Sitagliptin Phosphate (Januvia) 100 mg PO DAILY [facility] Last Admin: 05/04/17 08:46 Dose: 100 mg Physical Exam - Psychiatric Exam Additional comments: pt on evaluation calm cooperative good eye contact underproductive speech thought form circumstantial denied suicidal or homicidal ideations denied command hallucinations, alert awake oriented to person and place Results - Vital Signs Recent Vital Signs: Last Vital Signs Temp 97.7 F 05/04/17 08:00 Pulse 78 05/04/17 08:00 Resp 20 05/04/17 08:00 BP 101/68 05/04/17 08:00 Pulse Ox 97 05/04/17 08:00 - Labs Result Diagrams: 05/04/17 09:50 05/04/17 09:50 Labs: Laboratory Results - last 24 hr 05/03/17 05/03/17 05/03/17 06:20 15:44 22:28 WBC RBC Hgb Hct MCV MCH MCHC RDW Plt Count Sodium Potassium Chloride Carbon Dioxide Anion Gap BUN Creatinine Est GFR ( Amer) Est GFR (Non-Af Amer) POC Glucose (mg/dL) 168 H 138 H Random Glucose Calcium 25-OH Vitamin D Total 37.9 05/04/17 05/04/17 05/04/17 05:50 09:50 09:50 WBC 8.9 RBC 4.38 L Hgb 13.0 Hct 39.0 MCV 89.1 MCH 29.8 MCHC 33.4 RDW 13.5 Plt Count 212 Sodium 141 Potassium 4.1 Chloride 102 Carbon Dioxide 26 Anion Gap 17 BUN 15 Creatinine 0.5 L Est GFR ( Amer) > 60 Est GFR (Non-Af Amer) > 60 POC Glucose (mg/dL) 131 H Random Glucose 163 H Calcium 8.6 25-OH Vitamin D Total 05/04/17 10:51 WBC RBC Hgb Hct MCV MCH MCHC RDW Plt Count Sodium Potassium Chloride Carbon Dioxide Anion Gap BUN Creatinine Est GFR ( Amer) Est GFR (Non-Af Amer) POC Glucose (mg/dL) 207 H Random Glucose Calcium 25-OH Vitamin D Total Assessment & Plan - Assessment and Plan (Free Text) Assessment: schizophrenia residual type Plan: start zyprexa 5mg qhs medical social worker to arrange for follow up [facility] pt at current mental status not danger to self or others cleared psychiatricaly for discharge upon medical clearence
--- NOTE | 2017-05-04 13:04 | CP.PCM.DIS ---
Provider - Provider Date of Admission: 05/01/17 22:25 Attending physician: Agustin Alvarez MD Consults: Endocrinology Cardiology Neurology Psychiatry Time Spent in preparation of Discharge (in minutes): 40 Diagnosis - Discharge Diagnosis (1) Syncope Status: Resolved Comment: Poss due to hyperglycemia/hyperosmolarity (2) Pneumonia Status: Acute Comment: CXR infiltrates. On Abx (3) Diabetes mellitus with hyperglycemia Status: Acute Priority: Medium Comment: Improved. DC on Metformin and Januvia. Noncompliant (4) Schizophrenia Status: Chronic Comment: C/W Home meds. Hospital Course - Lab Results Lab Results: Micro Results 05/01/17 20:57 Blood Blood Culture - Preliminary NO GROWTH AFTER 48 HOURS Most Recent Lab Values WBC 8.9 K/uL (4.8-10.8) 05/04/17 09:50 RBC 4.38 Mil/uL (4.40-5.90) L 05/04/17 09:50 Hgb 13.0 g/dL (12.0-18.0) 05/04/17 09:50 Hct 39.0 % (35.0-51.0) 05/04/17 09:50 MCV 89.1 fl (80.0-94.0) 05/04/17 09:50 MCH 29.8 pg (27.0-31.0) 05/04/17 09:50 MCHC 33.4 g/dL (33.0-37.0) 05/04/17 09:50 RDW 13.5 % (11.5-14.5) 05/04/17 09:50 Plt Count 212 K/uL (130-400) 05/04/17 09:50 MPV 10.9 fl (7.2-11.7) 05/01/17 20:57 Neut % (Auto) 82.8 % (50.0-75.0) H 05/01/17 20:57 Lymph % (Auto) 12.6 % (20.0-40.0) L 05/01/17 20:57 [place] % (Auto) 3.6 % (0.0-10.0) 05/01/17 20:57 Eos % (Auto) 0.5 % (0.0-4.0) 05/01/17 20:57 Baso % (Auto) 0.5 % (0.0-2.0) 05/01/17 20:57 Neut # (Auto) 9.6 K/uL (1.8-7.0) H 05/01/17 20:57 Lymph # (Auto) 1.5 K/uL (1.0-4.3) 05/01/17 20:57 [place] # (Auto) 0.4 K/uL (0.0-0.8) 05/01/17 20:57 Eos # (Auto) 0.1 K/uL (0.0-0.7) 05/01/17 20:57 Baso # (Auto) 0.1 K/uL (0.0-0.2) 05/01/17 20:57 PT 12.1 Seconds (9.8-13.1) 05/01/17 21: INR 1.1 (0.9-1.2) 05/01/17 21: APTT 31.4 Seconds (25.6-37.1) 05/01/17 21:26 pO2 49 mm/Hg (30-55) 05/01/17 19:00 VBG pH 7.40 (7.32-7.43) 05/01/17 19:00 VBG pCO2 47 mmHg (40-60) 05/01/17 19:00 VBG HCO3 27.2 mmol/L 05/01/17 19:00 VBG Total CO2 30.5 mmol/L (22-28) H 05/01/17 19:00 VBG O2 Sat (Calc) 89.0 % (40-65) H 05/01/17 19:00 VBG Base Excess 3.4 mmol/L (0.0-2.0) H 05/01/17 19:00 VBG Potassium 4.4 mmol/L (3.6-5.2) 05/01/17 19:00 Sodium 134.0 mmol/L (132-148) 05/01/17 19:00 Chloride 99.0 mmol/L (98-107) 05/01/17 19:00 Glucose 585 mg/dL (75-110) H* D 05/01/17 19:00 Lactate 2.7 mmol/L (0.7-2.1) H 05/01/17 19:00 FiO2 21.0 % 05/01/17 19:00 Blood Gas Comments Vbg 05/01/17 19:00 Crit Value Called To Letitia benitez r.n. 05/01/17 19:00 Crit Value Called By Yady 05/01/17 19:00 Crit Value Read Back Y 05/01/17 19:00 Blood Gas Notified Time 210105/01/17 19:00 Sodium 141 mmol/l (132-148) 05/04/17 09:50 Potassium 4.1 MMOL/L (3.6-5.0) 05/04/17 09:50 Chloride 102 mmol/L (98-107) 05/04/17 09:50 Carbon Dioxide 26 mmol/L (22-30) 05/04/17 09:50 Anion Gap 17 (10-20) 05/04/17 09:50 BUN 15 mg/dl (9-20) 05/04/17 09:50 Creatinine 0.5 mg/dl (0.8-1.5) L 05/04/17 09:50 Est GFR ( Amer) > 60 05/04/17 09:50 Est GFR (Non-Af Amer) > 60 05/04/17 09:50 POC Glucose (mg/dL) 207 mg/dL (65-110) H 05/04/17 10:51 Random Glucose 163 mg/dL (75-110) H 05/04/17 09:50 Hemoglobin A1c 13.2 % (4.2-6.5) H 05/02/17 09:22 Serum Osmolality 317 mosm/kg (272-300) H 05/01/17 21:26 Calcium 8.6 mg/dL (8.4-10.2) 05/04/17 09:50 Phosphorus 3.3 mg/dl (2.5-4.5) 05/01/17 20:57 Magnesium 2.0 MG/DL (1.6-2.3) 05/01/17 20:57 Total Bilirubin 0.4 mg/dl (0.2-1.3) 05/03/17 06:20 AST 11 U/L (17-59) L D 05/03/17 06:20 ALT 16 U/L (21-72) L 05/03/17 06:20 Alkaline Phosphatase 85 U/L (38-126) 05/03/17 06:20 Troponin I < 0.0120 ng/mL (0.00-0.120) 05/01/17 20:57 Total Protein 6.8 G/DL (6.3-8.2) 05/03/17 06:20 Albumin 2.9 g/dL (3.5-5.0) L 05/03/17 06:20 Globulin 3.9 gm/dL (2.2-3.9) 05/03/17 06:20 Albumin/Globulin Ratio 0.7 (1.0-2.1) L 05/03/17 06:20 Triglycerides 66 mg/DL (0-149) D 05/02/17 10:36 Cholesterol 117 mg/dL (0-199) 05/02/17 10:36 LDL Cholesterol Direct 68 mg/dL (0-129) 05/02/17 10:36 HDL Cholesterol 34 MG/DL (30-70) 05/02/17 10:36 Vitamin B12 902 pg/mL (239-931) 05/02/17 10:36 25-OH Vitamin D Total 37.9 NG/ML (30.0-100.0) 05/03/17 06:20 TSH 3rd Generation 3.32 mIU/ML (0.46-4.68) 05/02/17 10:36 Venous Blood Potassium 4.4 mmol/L (3.6-5.2) 05/01/17 19:00 Urine Color Straw (YELLOW) 05/01/17 23:23 Urine Clarity Clear (Clear) 05/01/17 23:23 Urine pH 6.0 (5.0-8.0) 05/01/17 23:23 Ur Specific [place] 1.032 (1.003-1.030) H 05/01/17 23:23 Urine Protein Negative mg/dL (NEGATIVE) 05/01/17 23:23 Urine Glucose (UA) >=500 mg/dL (Normal) 05/01/17 23:23 Urine Ketones Negative mg/dL (NEGATIVE) 05/01/17 23:23 Urine Blood Negative (NEGATIVE) 05/01/17 23:23 Urine Nitrate Negative (NEGATIVE) 05/01/17 23:23 Urine Bilirubin Negative (NEGATIVE) 05/01/17 23:23 Urine Urobilinogen 0.2-1.0 mg/dL (0.2-1.0) 05/01/17 23:23 Ur Leukocyte Esterase Neg Adela/uL (Negative) 05/01/17 23:23 Urine RBC (Auto) 1 /hpf (0-3) 05/01/17 23:23 Urine Microscopic WBC 2 /hpf (0-5) 05/01/17 23:23 Alcohol, Quantitative < 10 mg/dl (0-10) 05/01/17 20:57 Influenza Typ A,B (EIA) Negative for flu a/b (NEGATIVE) 05/01/17 20:57 Blood Type A POSITIVE 05/01/17 20:57 Antibody Screen Negative 05/01/17 20:57 BBK History Checked Patient has bt 05/01/17 20:57 - Hospital Course Hospital Course: 71 y/o M seen at bedside today with Dr Alvarez. Patient with Hx of DM, Schizophrenia was admitted for syncope episode, found to have hyperglycemia and hyperosmolarity, he had been noncompliant with meds. Patient improved and was evaluated by Endocrinology, Cardiology, Neurology and Psychiatry. Found to have CXR infiltrates and treated for suspected CAP. Medical status markedly improved. Patient cleared to be DC by Psych. Recommended CINTHYA placement but patient refused today. To be DC home, stable to c/w Abx, Psych meds and PO DM meds only, due to concerns about his compliance with home insulin treatment. Discharge Exam - Head Exam Head Exam: NORMAL INSPECTION - Eye Exam Eye Exam: EOMI, PERRL - ENT Exam ENT Exam: Mucous Membranes Moist - Respiratory Exam Respiratory Exam: Clear to PA & Lateral, NORMAL BREATHING PATTERN. absent: Rhonchi - Cardiovascular Exam Cardiovascular Exam: REGULAR RHYTHM, +S1, +S2. absent: Gallop - GI/Abdominal Exam GI & Abdominal Exam: Normal Bowel Sounds, Unremarkable - Neurological Exam Neurological exam: Alert, Oriented x3 - Psychiatric Exam Additional comments: No SI, HI or hallucinations - Skin Skin Exam: Normal Color, Warm Discharge Plan - Discharge Medications Prescriptions: Aspirin [Aspirin Chewable] 81 mg PO DAILY #30 chew Azithromycin [Zithromax] 500 mg PO DAILY #5 tablet GlipiZIDE [Glucotrol] 10 mg PO BIDAC #60 tab metFORMIN [glucOPHAGE] 500 mg PO BIDWM #60 tab OLANZapine [ZyPREXA] 5 mg PO HS #30 tab SITagliptin [Januvia] 100 mg PO DAILY #30 tab - Follow Up Plan Condition: STABLE Disposition: HOME/ ROUTINE Patient education suggested?: Yes Additional Instructions: pt. cleared for discharge to home today by pt. seen and examined by - cleared for discharge to home; started zyprexa per recommendation pt. is refusing CINTHYA Rx form meds sent to [email or web address] for meds to beds pt. will f/u with outpatient Referrals: Agustin Alvarez MD [Staff Provider] -
--- NOTE | 2017-05-04 23:21 | PN ---
ENDOCRINOLOGY FOLLOWUP NOTE DATE: LOCATION: Room 402. SUBJECTIVE: This is a 71-year-old male with recent uncontrolled type 2 insulin-requiring diabetes presenting here with hyperosmolar hyperglycemic state and dehydration and has since then improved clinically and metabolically as noted thereof. He was initially placed on high dose insulin therapy with remarkable metabolic response thereof. His glucose levels today have ranged from 131 to 207 mg/dL. His latest chemistries showed a BUN of 15, sodium 141, potassium 4.1, chloride 102, CO2 of 26, glucose 163 and creatinine 0.5. So at this time, we will discontinue all the basal insulin for now and also the bolus or prandial insulin given as noted. We will switch him over to a triple oral hypoglycemic drug therapy with glipizide given as 10 mg b.i.d. and metformin given as 500 mg b.i.d. before meals as ordered. We will continue the Januvia given as 100 mg once daily in the morning as ordered. We will obtain serial chemistries and supplement accordingly needed. He has been [facility] [place], [place]. [facility] time. We will follow. Deisy Vizcarra MD
== END 2017-05-04 14:51 | disposition home or self-care (01) | DRG 73 ==
LOC: H.ER 18:39 → H.ERHOLD 22:25 → H.TEL 05-02 08:31
PROVIDERS: ADMIT Internal Medicine; ATTEND Internal Medicine
DX: E11.42 Type 2 diabetes mellitus with diabetic polyneuropathy (principal); J18.9 Pneumonia, unspecified organism; E11.649 Type 2 diabetes mellitus with hypoglycemia without coma; E11.65 Type 2 diabetes mellitus with hyperglycemia; G30.1 Alzheimer's disease with late onset; S09.90XA Unspecified injury of head, initial encounter; F02.80 Dementia in other diseases classified elsewhere, unspecified severity, without behavioral disturbance, psychotic disturbance, mood disturbance, and anxiety; F20.5 Residual schizophrenia; E86.0 Dehydration; E78.5 Hyperlipidemia, unspecified; E11.319 Type 2 diabetes mellitus with unspecified diabetic retinopathy without macular edema; I11.9 Hypertensive heart disease without heart failure; R04.0 Epistaxis; R29.6 Repeated falls; W19.XXXA Unspecified fall, initial encounter; Y92.009 Unspecified place in unspecified non-institutional (private) residence as the place of occurrence of the external cause; Z79.4 Long term (current) use of insulin; Z87.891 Personal history of nicotine dependence; Z91.14 Patient's other noncompliance with medication regimen; Z91.19 Patient's noncompliance with other medical treatment and regimen; E11.00 Type 2 diabetes mellitus with hyperosmolarity without nonketotic hyperglycemic-hyperosmolar coma (NKHHC); F45.9 Somatoform disorder, unspecified; R00.0 Tachycardia, unspecified

== ENCOUNTER 2017-06-04 14:03 | Emergency (ER) | payer MEDICARE, OTHER ==
[2017-06-04 14:03] VITALS: BMI 22.6
--- NOTE | 2017-06-04 15:41 | ED PDOC ---
HPI: Psych/Substance Abuse Time Seen by Provider: 06/04/17 14:41 Chief Complaint (Nursing): Psychiatric Evaluation Chief Complaint (Provider): Psychiatric evaluation History Per: Patient History/Exam Limitations: no limitations Onset/Duration Of Symptoms: Hrs (today) Current Symptoms Are (Timing): Still Present Suicide/Self Injury Attempted (Context): None Associated Symptoms: denies: Suicidal Thoughts, Suicidal Plan Additional Complaint(s): Gabriel Larson is a 71 year old male, with a past medical history of schizophrenia, diabetes and frequent falls, who presents to the emergency department because he wants to see a psychiatrist. Patient reports his psychiatric medications are not helping. He denies any suicidal or homicidal ideation, recent falls or injuries. No further medical complaints. PMD: None provided. Past Medical History Reviewed: Historical Data, Nursing Documentation, Vital Signs Vital Signs: Last Vital Signs Temp 97.6 F 06/04/17 14:22 Pulse 73 06/04/17 14:22 Resp 18 06/04/17 14:22 BP 127/60 06/04/17 14:22 Pulse Ox 99 06/04/17 14:22 - Medical History PMH: Alzheimer's Disease, Dementia, Diabetes, Schizophrenia Denies: HIV, Chronic Kidney Disease - Surgical History Surgical History: No Surg Hx - Family History Family History: States: Unknown Family Hx - Social History Current smoker - smoking cessation education provided: No Alcohol: None Drugs: Denies - Home Medications Home Medications: Ambulatory Orders Medication Instructions Recorded Aspirin [Aspirin Chewable] 81 mg PO DAILY #30 chew 05/04/17 Azithromycin [Zithromax] 500 mg PO DAILY #5 tablet 05/04/17 GlipiZIDE [Glucotrol] 10 mg PO BIDAC #60 tab 05/04/17 OLANZapine [ZyPREXA] 5 mg PO HS #30 tab 05/04/17 SITagliptin [Januvia] 100 mg PO DAILY #30 tab 05/04/17 metFORMIN [glucOPHAGE] 500 mg PO BIDWM #60 tab 05/04/17 - Allergies Allergies/Adverse Reactions: Allergies Allergy/AdvReac Type Severity Reaction Status Date / Time No Known Allergies Allergy Verified 05/01/17 18:44 Review of Systems ROS Statement: Except As Marked, All Systems Reviewed And Found Negative Constitutional: Negative for: Other (falls or injuries) Psych: Negative for: Suicidal ideation (or homicidal ideation) Physical Exam - Reviewed Nursing Documentation Reviewed: Yes Vital Signs Reviewed: Yes - Physical Exam Appears: Positive for: Non-toxic, No Acute Distress. Negative for: Well (poor hygiene) Head Exam: Positive for: ATRAUMATIC, NORMAL INSPECTION, NORMOCEPHALIC Skin: Positive for: Normal Color, Warm, Dry Eye Exam: Positive for: Normal appearance Neck: Positive for: Painless ROM Cardiovascular/Chest: Positive for: Regular Rate, Rhythm. Negative for: Murmur Respiratory: Positive for: Normal Breath Sounds. Negative for: Respiratory Distress Gastrointestinal/Abdominal: Positive for: Normal Exam, Soft. Negative for: Tenderness, Guarding, Rebound Extremity: Positive for: Normal ROM. Negative for: Deformity, Swelling Neurologic/Psych: Positive for: Alert, Oriented - Laboratory Results Result Diagrams: 06/04/17 16:34 06/04/17 16:34 - ECG O2 Sat by Pulse Oximetry: 99 (RA) Pulse Ox Interpretation: Normal Medical Decision Making Medical Decision Making: Initial Impression: Psychiatric eval Initial Plan: --EKG --Alcohol serum --CMP --Drug screen, urine --CBC w/ differential --Urinalysis --Reevaluation 17:00 -Patient will be signed out to Dr. Chaidez pending medical clearance and psych evaluation Scribe Attestation: Documented by Jaziel Sesay, acting as a scribe for Cecilia Flowers MD Provider Scribe Attestation: All medical record entries made by the Scribe were at my direction and personally dictated by me. I have reviewed the chart and agree that the record accurately reflects my personal performance of the history, physical exam, medical decision making, and the department course for this patient. I have also personally directed, reviewed, and agree with the discharge instructions and disposition. Disposition - Disposition Forms: [email or web address] (Maltese)
[2017-06-04 16:43] LABS: BASO # 0.1 K/uL (0.0-0.2); EOS # 0.1 K/uL (0.0-0.7); EOS % 0.6 % (0.0-4.0); HEMOGLOBIN 12.9 g/dL (12.0-18.0); LYMPH # 2.3 K/uL (1.0-4.3); LYMPH % 24.7 % (20.0-40.0); MEAN CELL VOLUME 88.5 fl (80.0-94.0); MEAN CORPUSCULAR HEMOGLOBIN 29.5 pg (27.0-31.0); MEAN CORPUSCULAR HGB CONC 33.3 g/dL (33.0-37.0); MEAN PLATELET VOLUME 9.8 fl (7.2-11.7); MONO # 0.5 K/uL (0.0-0.8); MONO % 5.2 % (0.0-10.0); NEUT # 6.3 K/uL (1.8-7.0); NEUT % 68.5 % (50.0-75.0); NRBC % 0.1 % (0.0-0.0); RBC 4.38 Mil/uL (4.40-5.90); RED CELL DISTRIBUTION WIDTH 13.8 % (11.5-14.5); WHITE BLOOD COUNT 9.1 K/uL (4.8-10.8)
[2017-06-04 16:58] LABS: ALB/GLOB RATIO 0.9 (1.0-2.1); ALBUMIN 3.4 g/dL (3.5-5.0); ALT/SGPT 20 U/L (21-72); AST/SGOT 13 U/L (17-59); BLOOD UREA NITROGEN 17 mg/dl (9-20); CALCIUM 8.8 mg/dL (8.4-10.2); GFR AFRICAN-AMERICAN > 60; GFR NON-AFRICAN AMERICAN > 60
--- NOTE | 2017-06-04 17:26 | RAD ---
HISTORY: clearance COMPARISON: 05/01/2017. FINDINGS: LUNGS: Improved aeration left lower lobe. . PLEURA: No significant pleural effusion identified, no pneumothorax apparent. CARDIOVASCULAR: Normal. OSSEOUS STRUCTURES: No significant abnormalities. VISUALIZED UPPER ABDOMEN: Normal. OTHER FINDINGS: None. IMPRESSION: No active disease. Resolution left lower lobe infiltrate.
--- NOTE | 2017-06-04 17:31 | CT ---
PROCEDURE: CT HEAD WITHOUT CONTRAST. HISTORY: Medical clearance. COMPARISON: Comparison made with prior CT scan and CTA of the brain dated 05/01/2017 and 05/02/2017 respectively. TECHNIQUE: Axial computed tomography images were obtained through the head/brain without intravenous contrast. Radiation dose: Total exam DLP = 855.28 mGy-cm. This CT exam was performed using one or more of the following dose reduction techniques: Automated exposure control, adjustment of the mA and/or kV according to patient size, and/or use of iterative reconstruction technique. FINDINGS: HEMORRHAGE: No acute parenchymal, subarachnoid or extra-axial hemorrhage. BRAIN: Minor diffuse/ confluent chronic periventricular white matter ischemic changes present. No obvious parenchymal nor extra-axial mass or collection seen on this noncontrast study. Moderate generalized volume loss. VENTRICLES: No obstructive hydrocephalus. CALVARIUM: There are no acute calvarial fractures. PARANASAL SINUSES: Unremarkable as visualized. No significant inflammatory changes. MASTOID AIR CELLS: Unremarkable as visualized. No inflammatory changes. OTHER FINDINGS: None. IMPRESSION: No acute intracranial hemorrhage. Minor chronic periventricular white matter ischemic changes Moderate generalized volume loss.
--- NOTE | 2017-06-04 17:37 | ED PDOC ---
- Laboratory Results Result Diagrams: 06/04/17 16:34 06/04/17 16:34 - ECG O2 Sat by Pulse Oximetry: 99 (RA) Medical Decision Making Medical Decision Making: Accession No. : [id number] Patient Name / ID : ANNELIESE SWANSON / [id number] Exam Date : 06/04/2017 16:51:47 ( Approved ) Study Comment : Sex / Age : M / 71Y Creator : Ok Gonzales MD Dictator : Ok Gonzales MD Resource Conservation Specialist : Rn Dialysis : Ok Gonzales MD Approver2 : Report Date : 06/04/2017 17:24:33 My Comment : HISTORY: clearance COMPARISON: 05/01/2017. FINDINGS: LUNGS: Improved aeration left lower lobe. . PLEURA: No significant pleural effusion identified, no pneumothorax apparent. CARDIOVASCULAR: Normal. OSSEOUS STRUCTURES: No significant abnormalities. VISUALIZED UPPER ABDOMEN: Normal. OTHER FINDINGS: None. IMPRESSION: No active disease. Resolution left lower lobe infiltrate. Accession No. : [id number] Patient Name / ID : ANNELIESE Patel [id number] Exam Date : 06/04/2017 16:30:04 ( Approved ) Study Comment : Sex / Age : M / 71Y Creator : Ariel Jennings MD Dictator : Resource Conservation Specialist : Rn Dialysis : Ariel Jennings MD Approver2 : Report Date : 06/04/2017 17:29:48 My Comment : PROCEDURE: CT HEAD WITHOUT CONTRAST. HISTORY: Medical clearance. COMPARISON: Comparison made with prior CT scan and CTA of the brain dated 05/01/2017 and respectively. TECHNIQUE: Axial computed tomography images were obtained through the head/brain without intravenous contrast. Radiation dose: Total exam DLP = 855.28 mGy-cm. This CT exam was performed using one or more of the following dose reduction techniques: Automated exposure control, adjustment of the mA and/or kV according to patient size, and/or use of iterative reconstruction technique. FINDINGS: HEMORRHAGE: No acute parenchymal, subarachnoid or extra-axial hemorrhage. BRAIN: Minor diffuse/ confluent chronic periventricular white matter ischemic changes present. No obvious parenchymal nor extra-axial mass or collection seen on this noncontrast study. Moderate generalized volume loss. VENTRICLES: No obstructive hydrocephalus. CALVARIUM: There are no acute calvarial fractures. PARANASAL SINUSES: Unremarkable as visualized. No significant inflammatory changes. MASTOID AIR CELLS: Unremarkable as visualized. No inflammatory changes. OTHER FINDINGS: None. IMPRESSION: No acute intracranial hemorrhage. Minor chronic periventricular white matter ischemic changes Moderate generalized volume loss. MEDICAL CLEARANCE: Pt medically cleared for psychiatric evaluation/admission. Disposition - Disposition Forms: TMS (Belgian) Addendum Addendum: 06/04/17 17:00 Pt signed out by Dr. Flowers pending labs, imaging and Crisis evaluation.
[2017-06-04 19:12] LABS: SQUAMOUS EPITHIAL 1 /hpf (0-5); URINE BILIRUBIN NEGATIVE (NEGATIVE); URINE BLOOD NEGATIVE (NEGATIVE); URINE CLARITY SLIGHTY-CLOUDY (Clear); URINE COLOR YELLOW (YELLOW); URINE GLUCOSE (UA) 150 mg/dL (Normal); URINE HYALINE CAST 0-2 /hpf (0-2); URINE LEUKOCYTE ESTERASE NEG Leu/uL (Negative); URINE PROTEIN NEGATIVE (NEGATIVE); URINE UROBILINOGEN 0.2-1.0 mg/dL (0.2-1.0)
[2017-06-04 19:15] LABS: BARBITURATES, UR NEGATIVE (NEGATIVE); BENZODIAZEPINES, UR NEGATIVE (NEGATIVE); OPIATES, UR NEGATIVE (NEGATIVE); PHENCYCLIDINE, UR NEGATIVE (NEGATIVE)
--- NOTE | 2017-06-04 19:39 | ED PDOC ---
- Laboratory Results Result Diagrams: 06/04/17 16:34 06/04/17 16:34 - ECG O2 Sat by Pulse Oximetry: 99 (RA) Medical Decision Making Medical Decision Makin:00 -Patient was signed out to me by Dr. Chaidez, pending crisis evaluation. 20:55 -Patient was seen and evaluated by crisis. Diagnosed with schizophrenia and stable for discharge. Upon provider evaluation patient is medically stable, and requires no further treatment in the ED at this time. Patient will be discharged home. Counseling was provided and all questions were answered regarding diagnosis. There is agreement to discharge plan. Return if symptoms persist or worsen. Disposition - Clinical Impression Clinical Impression: Schizophrenia - POA Present On Arrival: None - Disposition Disposition: Routine/Home Disposition Time: 20:55 Condition: STABLE Prescriptions: Multivitamin [Daily Value] 1 each PO QAM #30 tablet Instructions: Schizophrenia Forms: [facility] ([place])
[2017-06-04 20:28] VITALS: RESP 17; TEMP 98.1
[2017-06-05 04:06] VITALS: BP 132/81; PULSE 76
[2017-06-05 05:33] VITALS: O2SAT 99
--- NOTE | 2017-06-05 21:27 | CARD ---
APPROVED REPORT EKG Measurement Heart [id number] DE [id number] [id number] <Conclusion> Normal sinus rhythm Normal ECG
== END 2017-06-04 21:58 | disposition home or self-care (01) ==
LOC: H.ER 14:03
DX: F20.9 Schizophrenia, unspecified (principal); Z00.8 Encounter for other general examination; E11.9 Type 2 diabetes mellitus without complications; F02.80 Dementia in other diseases classified elsewhere, unspecified severity, without behavioral disturbance, psychotic disturbance, mood disturbance, and anxiety; G30.9 Alzheimer's disease, unspecified; Z79.82 Long term (current) use of aspirin; Z79.84 Long term (current) use of oral hypoglycemic drugs
CPT/HCPCS: 70450; 71045; 80053; 81003; 85025; 93005; 99284; G0480

== ENCOUNTER 2017-06-26 13:55 | Emergency (ER) | payer MEDICARE, OTHER ==
[2017-06-26 13:55] VITALS: BMI 22.6
[2017-06-26 14:06] VITALS: BP 98/60; PULSE 68; RESP 18; TEMP 97.8; O2SAT 99
--- NOTE | 2017-06-26 15:28 | ED PDOC ---
HPI: General Adult Time Seen by Provider: 06/26/17 14:08 Chief Complaint (Nursing): Psychiatric Evaluation Chief Complaint (Provider): Denies complaint - ASking for food History Per: Patient History/Exam Limitations: no limitations Onset/Duration Of Symptoms: Days Have you had recent travel within the past 21 days to any of the following countries: [place], [place], [place] or [place]?: No Additional Complaint(s): 71 yo male states he was sent her by police. Denies complaint. Calm and cooperative in ER. PT asks for food. Past Medical History Reviewed: Historical Data, Nursing Documentation, Vital Signs Vital Signs: Last Vital Signs Temp 97.8 F 06/26/17 14:03 Pulse 68 06/26/17 14:03 Resp 18 06/26/17 14:03 BP 98/60 L 06/26/17 14:03 Pulse Ox 99 06/26/17 14:03 - Medical History PMH: Alzheimer's Disease, Dementia, Diabetes, Schizophrenia Denies: Hepatitis, HIV, HTN, Chronic Kidney Disease, Seizures, Sexually Transmitted Disease - Family History Family History: States: Unknown Family Hx - Home Medications Home Medications: Ambulatory Orders Medication Instructions Recorded Aspirin [Aspirin Chewable] 81 mg PO DAILY #30 chew 05/04/17 Azithromycin [Zithromax] 500 mg PO DAILY #5 tablet 05/04/17 GlipiZIDE [Glucotrol] 10 mg PO BIDAC #60 tab 05/04/17 OLANZapine [ZyPREXA] 5 mg PO HS #30 tab 05/04/17 SITagliptin [Januvia] 100 mg PO DAILY #30 tab 05/04/17 metFORMIN [glucOPHAGE] 500 mg PO BIDWM #60 tab 05/04/17 Multivitamin [Daily Value] 1 each PO QAM #30 tablet 06/04/17 - Allergies Allergies/Adverse Reactions: Allergies Allergy/AdvReac Type Severity Reaction Status Date / Time No Known Allergies Allergy Verified 05/01/17 18:44 Review of Systems ROS Statement: Except As Marked, All Systems Reviewed And Found Negative Constitutional: Negative for: Fever, Chills Gastrointestinal: Negative for: Nausea, Vomiting, Abdominal Pain Genitourinary Male: Negative for: Dysuria Skin: Negative for: Rash, Lesions Physical Exam - Reviewed Nursing Documentation Reviewed: Yes Vital Signs Reviewed: Yes - Physical Exam Appears: Positive for: Well, Non-toxic, No Acute Distress Head Exam: Positive for: ATRAUMATIC, NORMAL INSPECTION, NORMOCEPHALIC Skin: Positive for: Normal Color, Warm, DRY Eye Exam: Positive for: Normal appearance ENT: Positive for: Normal ENT Inspection Neck: Positive for: Normal, Painless ROM Cardiovascular/Chest: Positive for: Regular Rate, Rhythm Respiratory: Positive for: CNT, Normal Breath Sounds Gastrointestinal/Abdominal: Positive for: Normal Exam, Soft Back: Positive for: Normal Inspection Extremity: Positive for: Normal ROM Neurologic/Psych: Positive for: Alert, Oriented - ECG O2 Sat by Pulse Oximetry: 99 Disposition - Clinical Impression Clinical Impression: Normal exam - Disposition Disposition Time: 15:28 Condition: STABLE
== END 2017-06-26 16:59 | disposition home or self-care (01) ==
LOC: H.ER 13:55
DX: Z00.00 Encounter for general adult medical examination without abnormal findings (principal); E11.9 Type 2 diabetes mellitus without complications; F20.9 Schizophrenia, unspecified; Z79.84 Long term (current) use of oral hypoglycemic drugs; G30.9 Alzheimer's disease, unspecified

== ENCOUNTER 2017-08-30 15:37 | Emergency (ER) | payer MEDICARE, OTHER ==
[2017-08-30 15:37] VITALS: BMI 22.6
[2017-08-30 16:44] LABS: BASO # 0.1 K/uL (0.0-0.2); BASO % 0.8 % (0.0-2.0); EOS # 0.1 K/uL (0.0-0.7); EOS % 0.8 % (0.0-4.0); HEMOGLOBIN 14.4 g/dL (12.0-18.0); LYMPH # 2.2 K/uL (1.0-4.3); MEAN CELL VOLUME 88.8 fl (80.0-94.0); MEAN CORPUSCULAR HEMOGLOBIN 29.9 pg (27.0-31.0); MEAN CORPUSCULAR HGB CONC 33.7 g/dL (33.0-37.0); MEAN PLATELET VOLUME 9.6 fl (7.2-11.7); MONO # 0.4 K/uL (0.0-0.8); MONO % 4.4 % (0.0-10.0); NEUT # 6.6 K/uL (1.8-7.0); RBC 4.81 Mil/uL (4.40-5.90); RED CELL DISTRIBUTION WIDTH 13.4 % (11.5-14.5); WHITE BLOOD COUNT 9.4 K/uL (4.8-10.8)
[2017-08-30 17:00] LABS: ALB/GLOB RATIO 0.9 (1.0-2.1); ALBUMIN 3.4 g/dL (3.5-5.0); ALT/SGPT 23 U/L (21-72); AST/SGOT 14 U/L (17-59); BLOOD UREA NITROGEN 13 mg/dl (9-20); CALCIUM 8.9 mg/dL (8.4-10.2); GFR AFRICAN-AMERICAN > 60; GFR NON-AFRICAN AMERICAN > 60; SQUAMOUS EPITHIAL < 1 /hpf (0-5); URINE BACTERIA RARE (<OCC); URINE BILIRUBIN NEGATIVE (NEGATIVE); URINE BLOOD NEGATIVE (NEGATIVE); URINE CLARITY SLIGHTY-CLOUDY (Clear); URINE COLOR YELLOW (YELLOW); URINE GLUCOSE (UA) >=500 mg/dL (Normal); URINE LEUKOCYTE ESTERASE TRACE Leu/uL (Negative); URINE PROTEIN NEGATIVE (NEGATIVE); URINE UROBILINOGEN 0.2-1.0 mg/dL (0.2-1.0)
[2017-08-30] MEDS ORDERED: Insulin Regular 100 units/ml SC STA (17:30)
[2017-08-30] MEDS ORDERED: Insulin Regular 100 units/ml ONE (17:34)
--- NOTE | 2017-08-30 18:19 | RAD ---
HISTORY: psychiatric evalution COMPARISON: Chest radiograph dated 06/04/2017 TECHNIQUE: Chest PA and lateral FINDINGS: LUNGS: No active pulmonary disease. PLEURA: No significant pleural effusion identified. No pneumothorax apparent. CARDIOVASCULAR: Atherosclerotic aortic calcifications. Cardiomediastinal silhouette within normal limits. OSSEOUS STRUCTURES: Unchanged. VISUALIZED UPPER ABDOMEN: Normal. OTHER FINDINGS: None. IMPRESSION: No active disease.
[2017-08-30 19:03] LABS: BARBITURATES, UR NEGATIVE (NEGATIVE); BENZODIAZEPINES, UR NEGATIVE (NEGATIVE); OPIATES, UR NEGATIVE (NEGATIVE); PHENCYCLIDINE, UR NEGATIVE (NEGATIVE)
--- NOTE | 2017-08-30 19:42 | ED PDOC ---
HPI: Psych/Substance Abuse Chief Complaint (Provider): psychiatric evaluation History Per: Patient, EMS History/Exam Limitations: no limitations Onset/Duration Of Symptoms: Hrs (today) Current Symptoms Are (Timing): Still Present Suicide/Self Injury Attempted (Context): None Associated Symptoms: Suicidal Plan. denies: Suicidal Thoughts Involuntary Hold By: None Additional Complaint(s): Gabriel Larson is a 71 year old male, with a past medical history of schizophrenia, dementia and diabetes, who was brought to the emergency department via EMS for psychiatric evaluation. Per EMS, 911 was called by neighbors because patient kept yelling at them and they saw him last week defecating and putting the feces in his pocket. Patient states he has not been compliant with psychiatric medications. He denies any suicidal or homicidal ideation. No further medical complaints. PMD: None provided. <Ruby Hernandez - Last Filed: 08/30/17 23:58> <Armin Casillas - Last Filed: 08/31/17 04:08> Time Seen by Provider: 08/30/17 15:48 Chief Complaint (Nursing): Psychiatric Evaluation Past Medical History Reviewed: Historical Data, Nursing Documentation, Vital Signs Vital Signs: Last Vital Signs Temp 98.0 F 08/30/17 15:42 Pulse 98 H 08/30/17 15:42 Resp 20 08/30/17 15:42 BP Pulse Ox 98 08/30/17 15:42 - Medical History PMH: Alzheimer's Disease, Dementia, Diabetes, Schizophrenia Denies: Hepatitis, HIV, HTN, Chronic Kidney Disease, Seizures, Sexually Transmitted Disease - Surgical History Surgical History: No Surg Hx - Family History Family History: States: Unknown Family Hx - Social History Current smoker - smoking cessation education provided: No Alcohol: None Drugs: Denies <Ruby Hernandez - Last Filed: 08/30/17 23:58> Vital Signs: Last Vital Signs Temp 97.8 F 08/31/17 02:32 Pulse 73 08/31/17 02:32 Resp 16 08/31/17 02:32 BP 98/56 L 08/31/17 02:32 Pulse Ox 96 08/31/17 02:32 <Armin Casillas - Last Filed: 08/31/17 04:08> - Home Medications Home Medications: Ambulatory Orders Medication Instructions Recorded Aspirin [Aspirin Chewable] 81 mg PO DAILY #30 chew 05/04/17 Azithromycin [Zithromax] 500 mg PO DAILY #5 tablet 05/04/17 GlipiZIDE [Glucotrol] 10 mg PO BIDAC #60 tab 05/04/17 OLANZapine [ZyPREXA] 5 mg PO HS #30 tab 05/04/17 SITagliptin [Januvia] 100 mg PO DAILY #30 tab 05/04/17 metFORMIN [glucOPHAGE] 500 mg PO BIDWM #60 tab 05/04/17 Multivitamin [Daily Value] 1 each PO QAM #30 tablet 06/04/17 - Allergies Allergies/Adverse Reactions: Allergies Allergy/AdvReac Type Severity Reaction Status Date / Time No Known Allergies Allergy Verified 05/01/17 18:44 Review of Systems ROS Statement: Except As Marked, All Systems Reviewed And Found Negative Psych: Negative for: Suicidal ideation (or homicidal ideation) <Ruby Hernandez - Last Filed: 08/30/17 23:58> Physical Exam - Reviewed Nursing Documentation Reviewed: Yes Vital Signs Reviewed: Yes - Physical Exam Appears: Positive for: Non-toxic, No Acute Distress (disheveled) Head Exam: Positive for: ATRAUMATIC, NORMOCEPHALIC Skin: Positive for: Normal Color, Warm, Dry Eye Exam: Positive for: Normal appearance, EOMI, PERRL Neck: Positive for: Painless ROM Cardiovascular/Chest: Positive for: Regular Rate, Rhythm. Negative for: Murmur Respiratory: Positive for: Normal Breath Sounds. Negative for: Respiratory Distress Extremity: Positive for: Normal ROM (upper and lower extremities), Other (old abrasions in lower legs). Negative for: Deformity, Swelling Neurologic/Psych: Positive for: Alert, Oriented <Ruby Hernandez - Last Filed: 08/30/17 23:58> - Laboratory Results Result Diagrams: 08/30/17 16:15 08/30/17 16:30 - ECG O2 Sat by Pulse Oximetry: 98 (RA) Pulse Ox Interpretation: Normal <Ruby Hernandez - Last Filed: 08/30/17 23:58> - Laboratory Results Result Diagrams: 08/30/17 16:15 08/30/17 16:30 <Armin Casillas - Last Filed: 08/31/17 04:08> Medical Decision Making Medical Decision Making: Time: 15:48 Initial Impression: psychiatric evaluation Initial Plan: --VBG Shock Panel --Alcohol serum --CMP --Urine drug screen --Crisis evaluation as ordered --CBC w/ differential --Chest two views (PA/LAT) [RAD] --Glucose, POC, routine --HumuLIN R 6 units SC --Urinalysis 16:30 -Patients labs and urine were normal except glucose. -Glucose was initially 333 mg/dL, however patient eating food tray in room. Insulin ordered. 18:10 -Glucose was retaken 45min after insulin, 338 mg/dL. However, an empty container of regular jello was found in room. 18:17 CXR FINDINGS: LUNGS: No active pulmonary disease. PLEURA: No significant pleural effusion identified. No pneumothorax apparent. CARDIOVASCULAR: Atherosclerotic aortic calcifications. Cardiomediastinal silhouette within normal limits. OSSEOUS STRUCTURES: Unchanged. VISUALIZED UPPER ABDOMEN: Normal. OTHER FINDINGS: None. IMPRESSION: No active disease. 19:40 -Repeat VBG with normal pH, glucose 257. No ketones in urine. 21:45 -Glucose: 147 mg/dL Care continued by Dr. Casillas at 0000. Scribe Attestation: Documented by Jaziel Sesay, acting as a scribe for Ruby Hernandez PA-C Provider Scribe Attestation: All medical record entries made by the Scribe were at my direction and personally dictated by me. I have reviewed the chart and agree that the record accurately reflects my personal performance of the history, physical exam, medical decision making, and the department course for this patient. I have also personally directed, reviewed, and agree with the discharge instructions and disposition. <Ruby Hernandez - Last Filed: 08/30/17 23:58> Medical Decision Makin Patient cleared by psych by Dr. Jarrett with diagnosis: bipolar disorder. Patient alert, steady gait, stable for outpatient followup. <Armin Casillas - Last Filed: 08/31/17 04:08> Disposition - Patient ED Disposition Is Patient to be Admitted: Transfer of Care - Disposition Disposition: Transfer of Care Disposition Time: 23:59 <Ruby Hernandez - Last Filed: 08/30/17 23:58> - Patient ED Disposition Is Patient to be Admitted: No - Disposition Disposition: Routine/Home Disposition Time: 04:00 <Armin Casillas - Last Filed: 08/31/17 04:08> - Clinical Impression Clinical Impression: Hyperglycemia, Schizophrenia, Bipolar disorder - Disposition Condition: STABLE Instructions: Bipolar Disorder, Schizophrenia, Hyperglycemia, Adult Forms: [facility] (Kyrgyz) Print Language: UZBEK
[2017-08-30 19:53] LABS: VENOUS BLOOD GAS BASE EXCESS 6.3 mmol/L (0.0-2.0); VENOUS BLOOD GAS PCO2 56 mmHg (40-60); VENOUS BLOOD GAS PO2 20 mm/Hg (30-55); VENOUS BLOOD PH 7.38 (7.32-7.43)
[2017-08-31 02:33] VITALS: RESP 16
[2017-08-31 05:08] VITALS: BP 119/67; PULSE 78; TEMP 98.1; O2SAT 98
--- NOTE | 2017-08-31 08:21 | CARD ---
APPROVED REPORT EKG Measurement Heart [id number] CT 126P71 [id number] <Conclusion> Normal sinus rhythm Normal ECG
== END 2017-08-31 06:15 | disposition home or self-care (01) ==
LOC: H.ER 15:37
DX: F20.9 Schizophrenia, unspecified (principal); F31.9 Bipolar disorder, unspecified; E11.65 Type 2 diabetes mellitus with hyperglycemia; F02.80 Dementia in other diseases classified elsewhere, unspecified severity, without behavioral disturbance, psychotic disturbance, mood disturbance, and anxiety; G30.9 Alzheimer's disease, unspecified; Z79.82 Long term (current) use of aspirin; Z79.84 Long term (current) use of oral hypoglycemic drugs
CPT/HCPCS: 71046; 80053; 81003; 82803; 82948; 85025; 87086; 93005; 96372; 99283; G0480

== ENCOUNTER 2017-11-17 12:33 | Inpatient (IN) | payer MEDICARE, MEDICAID ==
[2017-11-17 12:33] VITALS: BMI 22.6
[2017-11-17 13:29] LABS: BASO % 0.6 % (0.0-2.0); EOS % 0.6 % (0.0-4.0); HEMOGLOBIN 13.4 g/dL (12.0-18.0); LYMPH # 1.5 K/uL (1.0-4.3); LYMPH % 17.9 % (20.0-40.0); MEAN CELL VOLUME 87.6 fl (80.0-94.0); MEAN CORPUSCULAR HEMOGLOBIN 30.7 pg (27.0-31.0); MEAN CORPUSCULAR HGB CONC 35.1 g/dL (33.0-37.0); MEAN PLATELET VOLUME 10.2 fl (7.2-11.7); MONO # 0.4 K/uL (0.0-0.8); MONO % 4.7 % (0.0-10.0); NEUT # 6.3 K/uL (1.8-7.0); NEUT % 76.2 % (50.0-75.0); NRBC % 0.1 % (0.0-0.0); RBC 4.35 Mil/uL (4.40-5.90); RED CELL DISTRIBUTION WIDTH 13.2 % (11.5-14.5); WHITE BLOOD COUNT 8.2 K/uL (4.8-10.8)
[2017-11-17 13:40] LABS: ALB/GLOB RATIO 1.1 (1.0-2.1); ALBUMIN 3.4 g/dL (3.5-5.0); ALT/SGPT 21 U/L (21-72); AST/SGOT 13 U/L (17-59); BLOOD UREA NITROGEN 9 mg/dl (9-20); CALCIUM 8.7 mg/dL (8.4-10.2); GFR NON-AFRICAN AMERICAN > 60
[2017-11-17 15:04] LABS: URINE BILIRUBIN NEGATIVE (NEGATIVE); URINE BLOOD SMALL (NEGATIVE); URINE CLARITY CLEAR (Clear); URINE COLOR YELLOW (YELLOW); URINE GLUCOSE (UA) >=500 mg/dL (Normal); URINE LEUKOCYTE ESTERASE NEG Leu/uL (Negative); URINE PROTEIN NEGATIVE (NEGATIVE); URINE UROBILINOGEN 0.2-1.0 mg/dL (0.2-1.0)
[2017-11-17 15:21] LABS: BARBITURATES, UR NEGATIVE (NEGATIVE); BENZODIAZEPINES, UR NEGATIVE (NEGATIVE); OPIATES, UR NEGATIVE (NEGATIVE); PHENCYCLIDINE, UR NEGATIVE (NEGATIVE)
--- NOTE | 2017-11-17 15:46 | ED PDOC ---
HPI: Psych/Substance Abuse Time Seen by Provider: 11/17/17 14:10 Chief Complaint (Nursing): Psychiatric Evaluation Chief Complaint (Provider): PSYCH EVAL History Per: Patient (72 Y/O MALE H/O PSYCH ILLNESS NOTED WANDERING OUTSIDE NEAR VICINITY OF HOME, WITH BIZARRE SPEECH. PATIENT ADMITS HE DOESN'T TAKE ANY MEDICATIONS FOR HIS DIABETES/PSYCH ILLNESS. DENIES ANY SI/HI.) Past Medical History Reviewed: Historical Data, Nursing Documentation, Vital Signs Vital Signs: Last Vital Signs Temp 98.7 F 11/17/17 12:42 Pulse 85 11/17/17 12:42 Resp 18 11/17/17 12:42 BP 138/68 11/17/17 12:42 Pulse Ox 97 11/17/17 12:42 - Medical History PMH: Alzheimer's Disease, Dementia, Diabetes, Schizophrenia Denies: Hepatitis, HIV, HTN, Chronic Kidney Disease, Seizures, Sexually Transmitted Disease - Family History Family History: States: Unknown Family Hx - Home Medications Home Medications: Ambulatory Orders Medication Instructions Recorded Aspirin [Aspirin Chewable] 81 mg PO DAILY #30 chew 05/04/17 Azithromycin [Zithromax] 500 mg PO DAILY #5 tablet 05/04/17 GlipiZIDE [Glucotrol] 10 mg PO BIDAC #60 tab 05/04/17 OLANZapine [ZyPREXA] 5 mg PO HS #30 tab 05/04/17 SITagliptin [Januvia] 100 mg PO DAILY #30 tab 05/04/17 metFORMIN [glucOPHAGE] 500 mg PO BIDWM #60 tab 05/04/17 Multivitamin [Daily Value] 1 each PO QAM #30 tablet 06/04/17 - Allergies Allergies/Adverse Reactions: Allergies Allergy/AdvReac Type Severity Reaction Status Date / Time No Known Allergies Allergy Verified 11/17/17 12:42 Review of Systems ROS Statement: Except As Marked, All Systems Reviewed And Found Negative Physical Exam - Reviewed Nursing Documentation Reviewed: Yes Vital Signs Reviewed: Yes - Physical Exam Appears: Positive for: Well, Non-toxic, No Acute Distress Head Exam: Positive for: ATRAUMATIC, NORMAL INSPECTION, NORMOCEPHALIC Skin: Positive for: Normal Color, Warm, DRY Eye Exam: Positive for: EOMI, Normal appearance, PERRL ENT: Positive for: Normal ENT Inspection Neck: Positive for: Normal, Painless ROM Cardiovascular/Chest: Positive for: Regular Rate, Rhythm Respiratory: Positive for: CNT, Normal Breath Sounds Gastrointestinal/Abdominal: Positive for: Normal Exam, Soft Back: Positive for: Normal Inspection Extremity: Positive for: Normal ROM Neurologic/Psych: Positive for: Alert, Oriented - Laboratory Results Result Diagrams: 11/17/17 13:22 11/17/17 13:22 - ECG O2 Sat by Pulse Oximetry: 97 - Progress ED Course And Treament: repeat blood glucose 236 ua reviewed no ketones. Will order metformin 500 mg x 1 dose in ED patient is medically cleared for psych evaluation. seen by crisis admitted to Dr. Salas diagnosis schizoaffective disorder Disposition - Clinical Impression Clinical Impression: Schizoaffective disorder - Patient ED Disposition Is Patient to be Admitted: No - Disposition Disposition Time: 15:36 Condition: FAIR - Pt Status Changed To: Hospital Disposition Of: Inpatient - Admit Certification Admit to Inpatient:: After my assessment, the patient will require hospitalization for at least two midnights. This is because of the severity of symptoms shown, intensity of services needed, and/or the medical risk in this patient being treated as an outpatient.
[2017-11-17] MEDS ORDERED: Bismuth Subsalicylate 262 mg/15 ml Sus (240 ml) PO PRN (17:43)
[2017-11-17] MEDS ORDERED: Magnesium Hydroxide Susp 30 ml UD PO PRN (17:43)
[2017-11-17] MEDS ORDERED: Alum-Mag Hydrox-Simethicone Susp (30 mL) PO PRN (17:43)
--- NOTE | 2017-11-17 18:35 | PCM.BM ---
<Emani Carl - Last Filed: 11/17/17 18:33> Treatment Plan Problems - Problems identified on initial assessmt Problem 1 Date Initiated: 11/17/17 Time Initiated: 18:34 Date resolved: 11/24/17 Assessment reference: NA Status: Active Priority: 1 medication non adherence Date Initiated: 11/17/17 Time Initiated: 18:35 Date resolved: 11/24/17 Assessment reference: NA Status: Active Priority: 2 Treatment assets and liabiliti Patient Assests: cooperative, negotiates basic needs Patient Liabilities: live alone, poor support system, dietary restrictions, medical problems - Milieu Protocol Maintain good personal hygiene: every shift Encourage regular showers, every shift Remind patient to perform daily oral care, every shift Assist patient to perform ADL's Maintain personal safety: every shift Educate patient to report safety concerns to staff, every shift Monitor environment for contraband/sharps Medication safety: Monitor for expected outcome, potential side effects: every shift, Assess barriers to learning: every shift, Assess readiness for medication education: every shift <Constance Salas - Last Filed: 11/18/17 10:21> - Diagnosis (1) Schizoaffective disorder Status: Acute Interventions: Medication management, Individual and group therapy, Psychoeducation 11/18/17 10:21 <Charlotte Fernando - Last Filed: 11/19/17 14:30> Family Contact Family involvement: No known Family/SO - Goals for Treatment Patient goals for treatment: Pt to be encouraged to attend activity and clinical groups 3-5x per week to decrease symptoms of paranoia, delusions and employ reality testing. Pt to be encouraged to participate in group milieu to develop coping skills to reduce psychiatric hospitalizations and further decompensation. Coordinate discharge resources needs by providing referral for psychiatric treatment follow up in the community. Discharge/Continuing Care - Education Needs Education Needs: Patient Medication, Patient Diagnosis/Disease Process, Patient Coping Skills, Patient Placement options, Patient Community resources, Patient Activities of Daily Living, Patient Nutrition, Patient Personal Hygiene/Grooming , Patient Aftercare Safety Plan - Discharge Discharge Criteria: Tolerates medication w/o severe side effects, Ability to care for self, Reduction of target symptoms Discharge to:: Home - Additional Comments 11/19/17 14:24 Pt seen and discussed in team meeting. Reason for admission reviewed and discussed. Pt reported he was referred to the ED by 2 police offers. Pt unable to provide reason and/or explanation for hospitalization. Pt stated "I was talking like always." Pt reported residing alone and has no social/emotional support system. Pt presents with disorganized thought process, hypervebral, word slad, and very difficult for team members to follow pt's thought process. Pt's social and medical issues reviewed. 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 Pt's medications reviewed. Pr's tx plan reviewed and discussed with plan. SW to continue to follow case. - Treatment Team Participation Discussed with Family/SO: No Was Patient/Family/SO present at Treatment Team Meeting: Yes
[2017-11-18 07:31] LABS: HEMOGLOBIN 14.8 g/dL (12.0-18.0); MEAN CELL VOLUME 88.9 fl (80.0-94.0); MEAN CORPUSCULAR HEMOGLOBIN 30.6 pg (27.0-31.0); MEAN CORPUSCULAR HGB CONC 34.5 g/dL (33.0-37.0); RBC 4.82 Mil/uL (4.40-5.90); RED CELL DISTRIBUTION WIDTH 13.3 % (11.5-14.5); WHITE BLOOD COUNT 10.2 K/uL (4.8-10.8)
[2017-11-18 07:43] LABS: ALB/GLOB RATIO 1.2 (1.0-2.1); ALBUMIN 3.7 g/dL (3.5-5.0); ALT/SGPT 18 U/L (21-72); AST/SGOT 15 U/L (17-59); BLOOD UREA NITROGEN 15 mg/dl (9-20); CALCIUM 9.4 mg/dL (8.4-10.2); GFR NON-AFRICAN AMERICAN > 60; HDL CHOLESTEROL 50 MG/DL (30-70)
[2017-11-18 08:00] LABS: T4 7.49 ug/dl (5.5-11.0)
[2017-11-18 08:10] LABS: LDL CHOLESTEROL 72 mg/dL (0-129)
[2017-11-18 08:17] LABS: FERRITIN 41.4 ng/Ml (17.9-464)
--- NOTE | 2017-11-18 09:23 | PCM.PSYCH ---
Initial Psychiatric Evaluation - Initial Psychiatric Evaluation Type of Admission: Voluntary Legal Status: Capacity Chief Complaint (in patient's own words): "The police brought me here." Patient's Reaction to Hospitalization: HPI:72 yo male w/ history of schizophrenia vs schizoaffective disorder BIB [place] [facility] for bizarre behavior in his apt building. He was observed talking to himself and taking of his clothes. He is a poor historian, presenting acutely disheveled w/ loose and disorganized speech. He denies acute AH/VH/ paranoia, but appears internally preoccupied. He has not been compliant with treatment or medications. Denies SI/HI. A + O x 3; knows President Edu[employer]. PPHx: Multiple past psychiatric admissions, patient not able to give accurate history at this time PMHx: CAD, Uncontrolled DM (pt not compliant with medications) ALL: NKDA SHx: Lives in an apt alone, denies drug/etoh/cig use Current Medications: Active Medications Generic Name Dose Route Start Last Admin Trade Name Freq PRN Reason Stop Dose Admin Acetaminophen 650 mg 11/17/17 17:43 Tylenol 325mg Tab PO Q4 PRN Pain, moderate (4-7) Al Hydrox/Mg Hydrox/Simethicone 30 ml 11/17/17 17:43 Maalox Plus 30 Ml PO Q4 PRN Dyspepsia Bismuth Subsalicylate 524 mg 11/17/17 17:43 Pepto-Bismol PO Q4 PRN Diarrhea Lorazepam 0.5 mg 11/17/17 17:43 Ativan PO 12/01/17 17:44 HS PRN Insomnia Lorazepam 0.5 mg 11/17/17 17:43 Ativan PO 12/01/17 17:44 Q6 PRN Anixety/Agitation Magnesium Hydroxide 30 ml 11/17/17 17:43 Milk Of Magnesia PO HS PRN Constipation Olanzapine 5 mg 11/17/17 22:00 11/17/17 21:10 Zyprexa PO 5 mg HS BEL Administration Past Psychiatric History - Past Psychiatric History Previous Treatment History: Inpatient Pertinent Medical Hx (Current Medical&Sleep Prob, Allergies): Allergies Allergy/AdvReac Type Severity Reaction Status Date / Time No Known Allergies Allergy Verified 11/17/17 12:42 Aspirin [Aspirin Chewable] 81 mg PO DAILY #30 chew 05/04/17 Azithromycin [Zithromax] 500 mg PO DAILY #5 tablet 05/04/17 GlipiZIDE [Glucotrol] 10 mg PO BIDAC #60 tab 05/04/17 OLANZapine [ZyPREXA] 5 mg PO HS #30 tab 05/04/17 SITagliptin [Januvia] 100 mg PO DAILY #30 tab 05/04/17 metFORMIN [glucOPHAGE] 500 mg PO BIDWM #60 tab 05/04/17 Multivitamin [Daily Value] 1 each PO QAM #30 tablet 06/04/17 Review of Systems - Psychiatric Psychiatric: Difficulty Concentrating, Irritability, Memory Loss, Mood Swings Mental Status Examination - Personal Presentation Personal Presentation: Looks older than stated age Additional comments: Poor hygiene, Disheveled, Overgrown hardin and uncut hair - Affect Affect: Constricted - Motor Activity Motor Activity: Psychomotor Agitation - Reliability in Providing Information Reliability in Providing Information: Poor, due to alteration in thoughts, Poor , due to cognitve impairment - Speech Speech: Disorganized, Tangential - Mood Mood: Neutral - Formal Thought Process Formal Thought Process: Loosening of associations, Flight of ideas, Circumstantial - Hallucinations/Delusions Additional comments: Denies acute AH/VH, but seems internally preoccupied - Obsessions/Compulsions Obsessions: No Compulsions: No - Cognitive Functions Orientation: Person, Place, Situation, Time Sensorium: Alert Attention/Concentration: Attentive Estimate of Intelligence: Average Judgement: Imparied, as evidence by: Poor judgement, Imparied, as evidence by: Lack of insight into illness Memory: Recent impaired, as evidence by: Inability to recall events of the day, Recent imparied as evidence by:Inability to complete 3/3 object recall, Remote impaired as evidenced by: Inability to recall sig life events, Remote impaired as evidenced by: Inability to recall historical events - Risk Risk: Diminished functioning - Strength & Assets Inventory Strength & Assets Inventory: Cooperative - Limitations Limitations: Living alone, Decreased memory, recent DSM 5 DX - DSM 5 DSM 5 Diagnosis: Schizoaffective Disorder - Recommended/Plan of Treatment Treatment Recommendations and Plan of Treatment: Schizoaffective Disorder; r/o Dementia -Admit to psychiatry unit -Individual and group therapy -Medicine consult -Start Risperdal -Dietitian referral -Disposition planning Projected ELOS: 5-10 days Discharge Plan and Discharge Criteria: Discharge when patient is psychiatrically stable - Smoking Cessation Smoking Cessation Initiated: No Reason for not providing: Not indicated
[2017-11-18] MEDS ORDERED: Multivitamin With Minerals Tab PO SCH ×2 (09:30→12:45)
--- NOTE | 2017-11-18 13:33 | CP.PCM.CON ---
History of Present Illness - History of Present Illness History of Present Illness: Podiatry Consult note: Dr. Diaz 72 year old male patient with PMHx of CAD, Uncontrolled DM, schizophrenia vs schizoaffective disorder was seen and evaluated in psych for elongated nails and hyperkeratotic lesions to bilateral feet. Patient reports that he came to the hospital yesterday but did not give a reason. Patient denies of any pain to bilateral LE. Patient reports that nails on the left foot are really long and thick. States that he is not able to cut them at home. Patient is a poor historian and is not responding to verbal questions well. Patient is AAOX3 and appears in NAD. Denies of any acute overnight events. Denies of any recent F/N/V /C/SOB/CP/headache. No other pedal complains. PMHx: CAD, Uncontrolled DM, schizophrenia vs schizoaffective disorder PSHx: Denies Allergies: N.K.D.A SHx: Lives in an apt alone, denies smoking, EtOH or illicit drug usage Review of Systems - Constitutional Constitutional: As Per HPI Past Patient History - Past Medical History & Family History Past Medical History?: Yes - Past Social History Smoking Status: Former Smoker - CARDIAC Hx Cardiac Disorders: No Hx Hypertension: No - PULMONARY Hx Respiratory Disorders: No Hx Tuberculosis: No - NEUROLOGICAL Hx Neurological Disorder: Yes Hx Alzheimer's Disease: Yes Hx Dementia: Yes Hx Seizures: No - HEENT Hx HEENT Problems: No - RENAL Hx Chronic Kidney Disease: No - ENDOCRINE/METABOLIC Hx Endocrine Disorders: Yes Hx Diabetes Mellitus Type 2: Yes - HEMATOLOGICAL/ONCOLOGICAL Hx Blood Disorders: Yes Hx Human Immunodeficiency Virus (HIV): No - INTEGUMENTARY Hx Dermatological Problems: No - MUSCULOSKELETAL/RHEUMATOLOGICAL Hx Musculoskeletal Disorders: Yes Hx Falls: Yes - GASTROINTESTINAL Hx Gastrointestinal Disorders: No - GENITOURINARY/GYNECOLOGICAL Hx Genitourinary Disorders: No Hx Sexually Transmitted Disorders: No - PSYCHIATRIC Hx Bipolar Disorder: Yes Hx Schizophrenia: Yes Hx Substance Use: No - SURGICAL HISTORY Hx Surgeries: Yes Other/Comment: stated had surgery for nosebleeding - ANESTHESIA Hx Anesthesia: No Hx Anesthesia Reactions: No Hx Malignant Hyperthermia: No Meds Allergies/Adverse Reactions: Allergies Allergy/AdvReac Type Severity Reaction Status Date / Time No Known Allergies Allergy Verified 11/17/17 12:42 - Medications Medications: Current Medications Acetaminophen (Tylenol 325mg Tab) 650 mg PO Q4 PRN PRN Reason: Pain, moderate (4-7) Al Hydrox/Mg Hydrox/Simethicone (Maalox Plus 30 Ml) 30 ml PO Q4 PRN PRN Reason: Dyspepsia Aspirin (Aspirin Chewable) 81 mg PO DAILY [facility] Last Admin: 11/18/17 13:22 Dose: 81 mg Bismuth Subsalicylate (Pepto-Bismol) 524 mg PO Q4 PRN PRN Reason: Diarrhea Insulin Human Regular (Humulin R) 0 units SC ACHS BEL PRN Reason: Protocol Lorazepam (Ativan) 0.5 mg PO HS PRN PRN Reason: Insomnia Stop: 12/01/17 17:44 Lorazepam (Ativan) 0.5 mg PO Q6 PRN PRN Reason: Anixety/Agitation Stop: 12/01/17 17:44 Magnesium Hydroxide (Milk Of Magnesia) 30 ml PO HS PRN PRN Reason: Constipation Metformin HCl (Glucophage) 500 mg PO BIDWM [facility] Risperidone (Risperdal M-Tab) 1 mg PO Q12 [facility] Sitagliptin Phosphate (Januvia) 100 mg PO DAILY [facility] Last Admin: 11/18/17 13:18 Dose: 100 mg Physical Exam - Constitutional Appears: Well, Non-toxic, No Acute Distress - Extremities Exam Additional comments: VASC: DP/PT pulses are faintly palpable. Cap refill time: < 3 seconds to all digits. Skin temperature warm to cool from proximal to distal. no pitting or non -pitting edema noted DERM: Hyperkeratotic lesions with thick epidermal layer noted on the plantar aspect of the metatarsal head 1 and 5 - underlying wounds suspected, no inter digital maceration, nails are dystrophic, discolored, hyperkeratotic x 10, no erythema, no clinical suspicion of active infection NEURO: Epicritic and protective sensation intact ORTHO: Pes cavus, no pain during AROM and PROM at the AJ or MTPJ, no pain on palpation of the hyperkeratotic lesions - Neurological Exam Neurological exam: Alert, Oriented x3 - Psychiatric Exam Psychiatric exam: Normal Affect, Normal Mood Results - Vital Signs Recent Vital Signs: Last Vital Signs Temp 97 F L 11/18/17 06:08 Pulse 64 11/18/17 06:08 Resp 18 11/18/17 06:08 BP 119/66 11/18/17 06:08 Pulse Ox 97 11/17/17 15:48 - Labs Result Diagrams: 11/18/17 06:52 11/18/17 06:52 Labs: Laboratory Results - last 24 hr 11/17/17 11/17/17 11/17/17 12:40 13:22 13:22 WBC 8.2 RBC 4.35 L Hgb 13.4 Hct 38.1 MCV 87.6 MCH 30.7 MCHC 35.1 RDW 13.2 Plt Count 153 MPV 10.2 Neut % (Auto) 76.2 H Lymph % (Auto) 17.9 L Brule % (Auto) 4.7 Eos % (Auto) 0.6 Baso % (Auto) 0.6 Neut # (Auto) 6.3 Lymph # (Auto) 1.5 Brule # (Auto) 0.4 Eos # (Auto) 0.0 Baso # (Auto) 0.0 Sodium 141 Potassium 3.7 Chloride 108 H Carbon Dioxide 27 Anion Gap 10 BUN 9 Creatinine 0.5 L Est GFR ( Amer) > 60 Est GFR (Non-Af Amer) > 60 POC Glucose (mg/dL) 287 H Random Glucose 291 H Hemoglobin A1c Calcium 8.7 Ferritin Total Bilirubin 1.5 H AST 13 L ALT 21 Alkaline Phosphatase 80 Total Protein 6.5 Albumin 3.4 L Globulin 3.1 Albumin/Globulin Ratio 1.1 Triglycerides Cholesterol LDL Cholesterol Direct HDL Cholesterol Vitamin B12 Free T4 Thyroxine (T4) TSH 3rd Generation Urine Color Urine Clarity Urine pH Ur Specific [place] Urine Protein Urine Glucose (UA) Urine Ketones Urine Blood Urine Nitrate Urine Bilirubin Urine Urobilinogen Ur Leukocyte Esterase Urine RBC (Auto) Urine Microscopic WBC Urine Opiates Screen Urine Methadone Screen Ur Barbiturates Screen Ur Phencyclidine Scrn Ur Amphetamines Screen U Benzodiazepines Scrn U Oth Cocaine Metabols U Cannabinoids Screen Alcohol, Quantitative < 10 11/17/17 11/17/17 11/17/17 14:49 14:49 15:29 WBC RBC Hgb Hct MCV MCH MCHC RDW Plt Count MPV Neut % (Auto) Lymph % (Auto) Brule % (Auto) Eos % (Auto) Baso % (Auto) Neut # (Auto) Lymph # (Auto) Brule # (Auto) Eos # (Auto) Baso # (Auto) Sodium Potassium Chloride Carbon Dioxide Anion Gap BUN Creatinine Est GFR ( Amer) Est GFR (Non-Af Amer) POC Glucose (mg/dL) 239 H Random Glucose Hemoglobin A1c Calcium Ferritin Total Bilirubin AST ALT Alkaline Phosphatase Total Protein Albumin Globulin Albumin/Globulin Ratio Triglycerides Cholesterol LDL Cholesterol Direct HDL Cholesterol Vitamin B12 Free T4 Thyroxine (T4) TSH 3rd Generation Urine Color Yellow Urine Clarity Clear Urine pH 5.0 Ur Specific [place] 1.027 Urine Protein Negative Urine Glucose (UA) >=500 Urine Ketones Negative Urine Blood Small Urine Nitrate Negative Urine Bilirubin Negative Urine Urobilinogen 0.2-1.0 Ur Leukocyte Esterase Neg Urine RBC (Auto) 1 Urine Microscopic WBC 1 Urine Opiates Screen Negative Urine Methadone Screen Negative Ur Barbiturates Screen Negative Ur Phencyclidine Scrn Negative Ur Amphetamines Screen Negative U Benzodiazepines Scrn Negative U Oth Cocaine Metabols Negative U Cannabinoids Screen Negative Alcohol, Quantitative 11/18/17 11/18/17 11/18/17 06:52 06:52 06:52 WBC 10.2 RBC 4.82 Hgb 14.8 Hct 42.9 MCV 88.9 MCH 30.6 MCHC 34.5 RDW 13.3 Plt Count 154 MPV Neut % (Auto) Lymph % (Auto) Brule % (Auto) Eos % (Auto) Baso % (Auto) Neut # (Auto) Lymph # (Auto) Brule # (Auto) Eos # (Auto) Baso # (Auto) Sodium 142 Potassium 4.6 Chloride 104 Carbon Dioxide 30 Anion Gap 13 BUN 15 Creatinine 0.7 L Est GFR ( Amer) > 60 Est GFR (Non-Af Amer) > 60 POC Glucose (mg/dL) Random Glucose 216 H Hemoglobin A1c Calcium 9.4 Ferritin 41.4 Total Bilirubin 1.4 H AST 15 L ALT 18 L Alkaline Phosphatase 84 Total Protein 6.8 Albumin 3.7 Globulin 3.0 Albumin/Globulin Ratio 1.2 Triglycerides 120 D Cholesterol 143 LDL Cholesterol Direct 72 HDL Cholesterol 50 Vitamin B12 653 Free T4 1.08 Thyroxine (T4) 7.49 TSH 3rd Generation 6.62 H Urine Color Urine Clarity Urine pH Ur Specific [place] Urine Protein Urine Glucose (UA) Urine Ketones Urine Blood Urine Nitrate Urine Bilirubin Urine Urobilinogen Ur Leukocyte Esterase Urine RBC (Auto) Urine Microscopic WBC Urine Opiates Screen Urine Methadone Screen Ur Barbiturates Screen Ur Phencyclidine Scrn Ur Amphetamines Screen U Benzodiazepines Scrn U Oth Cocaine Metabols U Cannabinoids Screen Alcohol, Quantitative 11/18/17 11/18/17 06:52 11:12 WBC RBC Hgb Hct MCV MCH MCHC RDW Plt Count MPV Neut % (Auto) Lymph % (Auto) Brule % (Auto) Eos % (Auto) Baso % (Auto) Neut # (Auto) Lymph # (Auto) Brule # (Auto) Eos # (Auto) Baso # (Auto) Sodium Potassium Chloride Carbon Dioxide Anion Gap BUN Creatinine Est GFR ( Amer) Est GFR (Non-Af Amer) POC Glucose (mg/dL) 287 H Random Glucose Hemoglobin A1c 11.1 H Calcium Ferritin Total Bilirubin AST ALT Alkaline Phosphatase Total Protein Albumin Globulin Albumin/Globulin Ratio Triglycerides Cholesterol LDL Cholesterol Direct HDL Cholesterol Vitamin B12 Free T4 Thyroxine (T4) TSH 3rd Generation Urine Color Urine Clarity Urine pH Ur Specific [place] Urine Protein Urine Glucose (UA) Urine Ketones Urine Blood Urine Nitrate Urine Bilirubin Urine Urobilinogen Ur Leukocyte Esterase Urine RBC (Auto) Urine Microscopic WBC Urine Opiates Screen Urine Methadone Screen Ur Barbiturates Screen Ur Phencyclidine Scrn Ur Amphetamines Screen U Benzodiazepines Scrn U Oth Cocaine Metabols U Cannabinoids Screen Alcohol, Quantitative Assessment & Plan - Assessment and Plan (Free Text) Assessment: 72 year old male with PMHx of CAD, DM, schizophrenia vs schizoaffective disorder was evaluated for 1). onychomycosis 2). Hyperkeratotic lesions with suspected wounds secondary to pressure Plan: Patient seen and evaluated Discussed plan with attending Dr. Diaz Aseptic debridement of nails using sterile nail clippers Feet cleaned with saline and dressing applied to left foot using saline, DSD to soften the hyperkeratotic lesions Will debride the hyperkeratotic lesions using # 15 blade once the lesion is soft Will apply hydrogel and DSD tomorrow Surgical shoe ordered Thank you for the podiatry consult and allowing to take part in patient care Podiatry to follow patient while in-house - Date & Time Date: 11/18/17 Time: 13:46
[2017-11-18] MEDS: Insulin Regular 100 units/ml SC SCH ×2 (17:21→21:16)
[2017-11-18] MEDS: Risperidone M tab 1 MG PO SCH (21:15)
--- NOTE | 2017-11-19 02:06 | CON ---
DATE: 11/17/2017 MEDICAL CONSULTATION CHIEF COMPLAINT: Bizarre behavior in the apartment building. HISTORY OF PRESENT ILLNESS: This is a 72-year-old male, known case of schizophrenia, diabetes, coronary artery disease who is very noncompliant with medications who was found to have very bizarre behavior in the apartment as police was called, and the patient was brought to emergency room and was admitted for further management. REVIEW OF SYSTEMS: At this time is negative for headache, dizziness, syncope, loss of consciousness, chest pain, shortness of breath, nausea, vomiting, diarrhea, constipation, any new joint or extremity pain. Review of systems of all other organ systems is unremarkable except being having bizarre behavior. PAST MEDICAL HISTORY: Significant for diabetes, coronary artery disease. The patient is very noncompliant with medications and apparently was not taking any medications including his psychiatric medication for schizophrenia. PAST PSYCHIATRIC HISTORY: Significant for schizophrenia. PAST SURGICAL HISTORY: Unremarkable. MEDICATIONS: The patient was supposed to be on multiple medications, but was not taking any. ALLERGIES: THE PATIENT IS NOT ALLERGIC TO ANY MEDICATIONS. FAMILY HISTORY: Noncontributory. PHYSICAL EXAMINATION: GENERAL: A well-built, well-nourished 72-year-old male, in no acute distress. VITAL SIGNS: Temperature 97, pulse 64, respirations 18, and blood pressure 119/66. HEENT: Pupils reacting to light. No JVD. No thyromegaly. No lymphadenopathy. No nystagmus. Normocephalic, atraumatic skull. HEART: S1 and S2 are normal, regular. No significant murmur, gallop, or rub is heard. LUNGS: Exam shows good bilateral air exchange. No rales or rhonchi. ABDOMEN: Soft and nontender. No organomegaly. No fluids. Bowel sounds are present and normal. EXTREMITIES: No edema. No calf swelling. No tenderness. No acute ischemia. CENTRAL NERVOUS SYSTEM: Essentially unchanged and there is no sign of any active gross focal, motor, or sensory neurological deficit. DIAGNOSTIC DATA: Available diagnostic data reviewed. WBC 10.2, hemoglobin 14.8, hematocrit 42, platelets 154. Sodium 142, potassium 4.6, chloride 104, bicarb 30, BUN 15, creatinine 0.7. Blood sugar is 291, 239, 287, and 216. Hemoglobin A1c is 11.9. TSH level is 6.62. SMA-12 otherwise is unremarkable. Urinalysis is negative. Urine toxicology is negative. CONSULTING IMPRESSION: 1. Type 2 uncontrolled diabetes, most likely secondary to noncompliance. 2. Hypothyroidism. 3. Schizophrenia. PLAN: As ordered. Case and plan discussed with the patient. Agustin Alvarez MD
--- NOTE | 2017-11-19 06:56 | CP.PCM.PN ---
Subjective - Date & Time of Evaluation Date of Evaluation: 11/19/17 Time of Evaluation: 06:56 - Subjective Subjective: Podiatry progress note for Dr. Diaz 72 year old male patient with PMHx of CAD, Uncontrolled DM, schizophrenia vs schizoaffective disorder was seen and evaluated in psych for elongated nails and hyperkeratotic lesions to bilateral feet. Patient reports that he came to the hospital yesterday but did not give a reason. Patient denies of any pain to bilateral LE. Patient is a poor historian and is not responding to verbal questions well. Patient is AAOX3 and appears in NAD. Denies of any acute overnight events. Denies of any recent F/N/V/C/SOB/CP/headache. No other pedal complains. Objective - Vital Signs/Intake and Output Vital Signs (last 24 hours): Temp Pulse Resp BP Pulse Ox 97.2 F L 75 19 113/64 97 11/19/17 06:00 11/19/17 06:00 11/19/17 06:00 11/19/17 06:00 11/17/17 15:48 - Medications Medications: Current Medications Acetaminophen (Tylenol 325mg Tab) 650 mg PO Q4 PRN PRN Reason: Pain, moderate (4-7) Al Hydrox/Mg Hydrox/Simethicone (Maalox Plus 30 Ml) 30 ml PO Q4 PRN PRN Reason: Dyspepsia Aspirin (Aspirin Chewable) 81 mg PO DAILY [facility] Last Admin: 11/18/17 13:22 Dose: 81 mg Bismuth Subsalicylate (Pepto-Bismol) 524 mg PO Q4 PRN PRN Reason: Diarrhea Insulin Human Regular (Humulin R) 0 units SC ACHS [facility] PRN Reason: Protocol Last Admin: 11/18/17 21:16 Dose: Not Given Levothyroxine Sodium (Synthroid) 25 mcg PO DAILY@0630 [facility] Lorazepam (Ativan) 0.5 mg PO HS PRN PRN Reason: Insomnia Stop: 12/01/17 17:44 Lorazepam (Ativan) 0.5 mg PO Q6 PRN PRN Reason: Anixety/Agitation Stop: 12/01/17 17:44 Magnesium Hydroxide (Milk Of Magnesia) 30 ml PO HS PRN PRN Reason: Constipation Metformin HCl (Glucophage) 500 mg PO BIDWM [facility] Last Admin: 11/18/17 17:22 Dose: 500 mg Risperidone (Risperdal M-Tab) 1 mg PO Q12 [facility] Last Admin: 11/18/17 21:15 Dose: 1 mg Sitagliptin Phosphate (Januvia) 100 mg PO DAILY [facility] Last Admin: 11/18/17 13:18 Dose: 100 mg - Labs Labs: 11/18/17 06:52 11/18/17 06:52 - Constitutional Appears: Well, Non-toxic, No Acute Distress - Head Exam Head Exam: ATRAUMATIC, NORMOCEPHALIC - Extremities Exam Additional comments: VASC: DP/PT pulses are faintly palpable. Cap refill time: < 3 seconds to all digits. Skin temperature warm to cool from proximal to distal. no pitting or non-pitting edema noted DERM: Hyperkeratotic lesions with thick epidermal layer noted on the plantar aspect of the metatarsal head 1 and 5 - underlying wounds suspected, no inter digital maceration, nails are dystrophic, discolored, hyperkeratotic x 10, no erythema, no clinical suspicion of active infection NEURO: Epicritic and protective sensation intact ORTHO: Pes cavus, no pain during AROM and PROM at the AJ or MTPJ, no pain on palpation of the hyperkeratotic lesions - Neurological Exam Neurological Exam: Alert, Awake, Oriented x3 - Psychiatric Exam Psychiatric exam: Normal Affect, Normal Mood Assessment and Plan - Assessment and Plan (Free Text) Assessment: 72 year old male with PMHx of CAD, DM, schizophrenia vs schizoaffective disorder was evaluated for 1). onychomycosis 2). Hyperkeratotic lesions with suspected wounds secondary to pressure Plan: Patient seen and evaluated Discussed plan with attending Dr. Diaz Feet cleaned with saline and dressing applied to left foot using hydrogel, DSD to soften the hyperkeratotic lesions Will debride the hyperkeratotic lesions using # 15 blade once the lesion is soft Will apply hydrogel and DSD tomorrow Surgical shoe ordered Podiatry to follow patient while in-house
[2017-11-19] MEDS ORDERED: DiphenhydrAMINE 50 mg/ml Inj IM PRN (08:19)
--- NOTE | 2017-11-19 08:23 | PCM.PYCHPN ---
Psychiatric Progress Note - Psychiatric Progress Note Patient seen today, length of contact: Patient evaluated, case discussed w/ team , chart reviewed Patient Chief Complaint: "The police brought me here." Problems Identified/Issues Discussed: Patient continues to be disorganized, labile, easily agitated, w/ poor insight/ judgment into his ability to care for himself. He has been non-compliant with his psychiatric and medical medications because he does not believe he needs to take any medications. Psychoeducation provided on the importance of compliance w/ treatment. Medication Change: Yes (Increase Risperdal) Medical Record Reviewed: Yes Consults ordered or reviewed: Medicine, Podiatry, PT/OT Mental Status Examination - Cognitive Function Orientation: Person, Place, Situation, Time Memory: Impaired Attention: Poor Concentration: Poor Association: Loose Fund of Knowledge: Poor Decription of patient's judgement and insights: Poor I/J - Mood Mood: Neutral - Affect Affect: Constricted - Speech Speech: Pressured - Formal Thought Process Formal Thought Process: Loosening of associations, Flight of ideas, Circumstantial Psychotic Thoughts and Behaviors: Denies AH/VH, but seems internally preoccupied - Suicidal Ideation Suicidal Ideation: No - Homicidal Ideation Homicidal Ideation: No Goal/Treatment Plan - Goal/Treatment Plan Need for Continued Stay: Remain at risks for inpatient hospitalization, Discharge may exacerbated symptoms, Severe functional impairment Progress Toward Problem(s) and Goals/Treatment Plan: Schizoaffective Disorder; r/o Dementia -Individual and group therapy -Medicine consult -Increase Risperdal -Dietitian referral -Podiatry consult -PT/OT screening -Disposition planning Estimated Date of D/C: 11/26/17
[2017-11-19] MEDS: Insulin Regular 100 units/ml SC SCH ×4 (08:52→21:06)
[2017-11-19] MEDS: Risperidone M tab 1 MG PO SCH ×2 (08:58→21:05)
[2017-11-19] MEDS: Levothyroxine 25 MCG TAB PO SCH (08:58)
--- NOTE | 2017-11-19 13:31 | PN ---
DATE: 11/19/2017 SUBJECTIVE: The patient is seen and examined. Interim events noted. The patient remains in geropsych unit, awake and responsive. He denies any specific complaint, worried about him not having a job. He is currently not having a job. He is not really concerned about his elevated sugar even after multiple explanations. No chest pain. No shortness of breath. PHYSICAL EXAMINATION: GENERAL: The patient is in no acute distress. VITAL SIGNS: Stable. HEART: S1 and S2, normal and regular. LUNGS: Good bilateral air exchange. ABDOMEN: Soft, nontender. EXTREMITIES: No calf swelling. No tenderness. No acute ischemia. 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 DIAGNOSTIC DATA: Available diagnostic data reviewed. Accu-Chek still elevated . Hemoglobin A1c was 11. These results were discussed with the patient at length, tried to explain to him about need for medications, which he temporarily , but does not think his sugar has dropped. PLAN: As ordered. Case and plan discussed with the patient. Agustin Alvarez MD
[2017-11-19 21:46] LABS: FOLATE 4.8 ng/mL
--- NOTE | 2017-11-20 08:03 | PCM.PYCHPN ---
Psychiatric Progress Note - Psychiatric Progress Note Patient seen today, length of contact: Patient evaluated, case discussed w/ team , chart reviewed Patient Chief Complaint: "The police brought me here." Problems Identified/Issues Discussed: Patient continues to be disorganized, labile, easily agitated, w/ poor insight/ judgment into his need for medical and psychiatric medications. He denies AH/VH , but seems internally preoccupied. Psychoeducation provided on the importance of compliance w/ treatment. Medication Change: Yes (Increase Risperdal) Medical Record Reviewed: Yes Consults ordered or reviewed: Medicine, Podiatry, PT Mental Status Examination - Cognitive Function Orientation: Person, Place, Situation, Time Memory: Impaired Attention: Poor Concentration: Poor Association: Loose Fund of Knowledge: Poor Decription of patient's judgement and insights: Poor I/J - Mood Mood: Neutral - Affect Affect: Constricted - Speech Speech: Pressured - Formal Thought Process Formal Thought Process: Loosening of associations, Flight of ideas, Circumstantial Psychotic Thoughts and Behaviors: Denies AH/VH, but seems internally preoccupied - Suicidal Ideation Suicidal Ideation: No - Homicidal Ideation Homicidal Ideation: No Goal/Treatment Plan - Goal/Treatment Plan Need for Continued Stay: Remain at risks for inpatient hospitalization, Discharge may exacerbated symptoms, Severe functional impairment Progress Toward Problem(s) and Goals/Treatment Plan: Schizoaffective Disorder; r/o Dementia -Individual and group therapy -Medicine consult -Increase Risperdal -Dietitian referral -Podiatry consult -PT -Disposition planning Estimated Date of D/C: 11/26/17
[2017-11-20] MEDS: Insulin Regular 100 units/ml SC SCH ×4 (08:13→21:04)
[2017-11-20] MEDS: Levothyroxine 25 MCG TAB PO SCH (08:15)
[2017-11-20] MEDS: Risperidone M tab 1 MG PO SCH (08:15)
--- NOTE | 2017-11-20 14:16 | PN ---
DATE: 11/20/2017 SUBJECTIVE: The patient seen and examined. Interim events noted. Psychiatry followup and intervention noted and appreciated. The patient remains in geropsych unit. Awake and responsive. No chills or pains. No chest pain or shortness of breath. No symptoms of low blood sugar. PHYSICAL EXAMINATION: GENERAL: The patient is in no acute distress. VITAL SIGNS: Stable. HEART: S1 and S2. Normal and regular. LUNGS: Good bilateral air exchange. ABDOMEN: Soft and nontender. EXTREMITIES: No edema. No calf swelling. No tenderness. No acute ischemia. MANAGER OUTREACH: Exam is essentially unchanged. DIAGNOSTIC DATA: Available diagnostic data reviewed. Blood sugar still remains elevated. mg twice a day. ASSESSMENT AND PLAN: Plan as ordered. Case and plan discussed with the patient. Agustin Alvarez MD
[2017-11-20] MEDS ORDERED: Risperidone M TAB 2 MG PO SCH (22:00)
--- NOTE | 2017-11-21 08:00 | CP.PCM.PN ---
Subjective - Date & Time of Evaluation Date of Evaluation: 11/21/17 Time of Evaluation: 07:58 - Subjective Subjective: Podiatry progress note for Dr. Diaz 72 year old male patient was seen and evaluated in psych for elongated nails and hyperkeratotic lesions to bilateral feet. Patient denies of any pain to bilateral LE. Patient is a poor historian and is not responding to verbal questions well. Patient is AAOX3 and appears in NAD. Denies of any acute overnight events. Denies of any recent F/N/V/C/SOB/CP/headache. No other pedal complains. Objective - Vital Signs/Intake and Output Vital Signs (last 24 hours): Temp Pulse Resp BP Pulse Ox 97.2 F L 90 20 131/75 97 11/21/17 06:00 11/21/17 06:00 11/21/17 06:00 11/21/17 06:00 11/17/17 15:48 - Medications Medications: Current Medications Acetaminophen (Tylenol 325mg Tab) 650 mg PO Q4 PRN PRN Reason: Pain, moderate (4-7) Al Hydrox/Mg Hydrox/Simethicone (Maalox Plus 30 Ml) 30 ml PO Q4 PRN PRN Reason: Dyspepsia Aspirin (Aspirin Chewable) 81 mg PO DAILY [facility] Last Admin: 11/20/17 08:14 Dose: 81 mg Bismuth Subsalicylate (Pepto-Bismol) 524 mg PO Q4 PRN PRN Reason: Diarrhea Diphenhydramine HCl (Benadryl) 50 mg IM Q6 PRN PRN Reason: Other Diphenhydramine HCl (Benadryl) 50 mg PO Q6 PRN PRN Reason: Other Haloperidol (Haldol) 2 mg PO Q6 PRN PRN Reason: Agitation Haloperidol Lactate (Haldol) 2 mg IM Q6 PRN PRN Reason: Agitation Insulin Human Regular (Humulin R) 0 units SC [facility] PRN Reason: Protocol Last Admin: 11/20/17 21:04 Dose: Not Given Levothyroxine Sodium (Synthroid) 25 mcg PO DAILY@0630 [facility] Last Admin: 11/20/17 08:15 Dose: 25 mcg Lorazepam (Ativan) 0.5 mg PO HS PRN PRN Reason: Insomnia Stop: 12/01/17 17:44 Last Admin: 11/19/17 23:03 Dose: 0.5 mg Lorazepam (Ativan) 0.5 mg PO Q6 PRN PRN Reason: Anixety/Agitation Stop: 12/01/17 17:44 Magnesium Hydroxide (Milk Of Magnesia) 30 ml PO HS PRN PRN Reason: Constipation Metformin HCl (Glucophage) 1,000 mg PO BIDWM [facility] Last Admin: 11/20/17 16:39 Dose: 1,000 mg Risperidone (Risperdal M-Tab) 1 mg PO DAILY [facility] Last Admin: 11/20/17 08:15 Dose: 1 mg Risperidone (Risperdal M-Tab) 2 mg PO HS [facility] Last Admin: 11/20/17 21:03 Dose: 2 mg Sitagliptin Phosphate (Januvia) 100 mg PO DAILY [facility] Last Admin: 11/20/17 08:12 Dose: 100 mg - Labs Labs: 11/18/17 06:52 11/18/17 06:52 - Constitutional Appears: Well, Non-toxic, No Acute Distress - Extremities Exam Additional comments: VASC: DP/PT pulses are faintly palpable. Cap refill time: < 3 seconds to all digits. Skin temperature warm to cool from proximal to distal. no pitting or non-pitting edema noted DERM: Hyperkeratotic lesions with thick epidermal layer noted on the plantar aspect of the metatarsal head 1 and 5 - underlying wounds suspected, no inter digital maceration, no lesions present and no clinical suspicion of active infection NEURO: Epicritic and protective sensation intact ORTHO: Pes cavus, no pain during AROM and PROM at the AJ or MTPJ, no pain on palpation of the hyperkeratotic lesions - Neurological Exam Neurological Exam: Alert, Awake, Oriented x3 - Psychiatric Exam Psychiatric exam: Normal Affect, Normal Mood Assessment and Plan - Assessment and Plan (Free Text) Assessment: 72 year old male with PMHx of CAD, DM, schizophrenia vs schizoaffective disorder was evaluated for 1). onychomycosis 2). Hyperkeratotic lesions with suspected wounds secondary to pressure Plan: Patient seen and evaluated Discussed plan with attending Dr. Diaz Feet cleaned with saline and dressing applied to left foot using hydrogel, DSD to soften the hyperkeratotic lesions No plan for debridement of hyperkeratotic lesions as they appear stable with no pain, bleeding, drainage, or signs of infection Surgical shoe ordered - nurse reports it is difficult for him to wear as he slides his foot during gait - can dispense another shoe for his other foot to help with gait Podiatry to follow patient while in-house
[2017-11-21] MEDS: Levothyroxine 25 MCG TAB PO SCH (08:16)
[2017-11-21] MEDS: Insulin Regular 100 units/ml SC SCH ×4 (08:19→21:13)
[2017-11-21] MEDS: Risperidone M tab 1 MG PO SCH (08:20)
--- NOTE | 2017-11-21 09:01 | PCM.PYCHPN ---
Psychiatric Progress Note - Psychiatric Progress Note Patient seen today, length of contact: Patient evaluated, case discussed w/ team , chart reviewed Patient Chief Complaint: "The police brought me here." Problems Identified/Issues Discussed: Patient is calmer, but continues to be disorganized, labile, w/ poor insight/ judgment into his need for medical and psychiatric medications. He denies AH/VH , but seems internally preoccupied. Psychoeducation provided on the importance of compliance w/ treatment. Medication Change: No Medical Record Reviewed: Yes Consults ordered or reviewed: Medicine, Podiatry, PT Mental Status Examination - Cognitive Function Orientation: Person, Place, Situation, Time Memory: Impaired Attention: Poor Concentration: Poor Association: Loose Fund of Knowledge: Poor Decription of patient's judgement and insights: Poor I/J - Mood Mood: Neutral - Affect Affect: Other (Labile) - Speech Speech: Pressured - Formal Thought Process Formal Thought Process: Loosening of associations, Flight of ideas, Circumstantial Psychotic Thoughts and Behaviors: Denies AH/VH, but seems internally preoccupied - Suicidal Ideation Suicidal Ideation: No - Homicidal Ideation Homicidal Ideation: No Goal/Treatment Plan - Goal/Treatment Plan Need for Continued Stay: Remain at risks for inpatient hospitalization, Discharge may exacerbated symptoms, Severe functional impairment Progress Toward Problem(s) and Goals/Treatment Plan: Schizoaffective Disorder; r/o Dementia -Individual and group therapy -Medicine consult -Continue Risperdal -Dietitian referral -Podiatry consult -PT -Disposition planning Estimated Date of D/C: 11/26/17
--- NOTE | 2017-11-21 13:58 | PN ---
DATE: 11/21/2017 SUBJECTIVE: The patient seen and examined. Interm events noted. Psychiatry followup and intervention noted and appreciated. The patient remains very uncooperative with medication and insulin coverage. Denies any specific complaint of chest pain or shortness of breath. PHYSICAL EXAMINATION: GENERAL: The patient is in no acute distress. VITAL SIGNS: Stable. HEART: S1 and S2, normal and regular. LUNGS: Good bilateral air exchange. ABDOMEN: Soft and nontender. EXTREMITIES: No edema. No calf swelling. No tenderness. No acute ischemia. 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 DIAGNOSTIC DATA: Available diagnostic data reviewed. Accu-Cheks still remains elevated, but as mentioned earlier the patient is refusing insulin coverage. ASSESSMENT AND PLAN: Metformin was increased yesterday. We will observe . Plan as ordered. Agustin Alvarez MD
[2017-11-21] MEDS: Risperidone M TAB 2 MG PO SCH (21:13)
[2017-11-22] MEDS ORDERED: Insulin Regular 100 units/ml SC STA (06:11)
[2017-11-22] MEDS: Levothyroxine 25 MCG TAB PO SCH (08:26)
[2017-11-22] MEDS: Risperidone M TAB 2 MG PO SCH ×2 (08:27→21:08)
[2017-11-22] MEDS: Insulin Regular 100 units/ml SC SCH ×4 (08:28→21:08)
--- NOTE | 2017-11-22 08:32 | PCM.PYCHPN ---
Psychiatric Progress Note - Psychiatric Progress Note Patient seen today, length of contact: Patient evaluated, case discussed w/ team , chart reviewed Patient Chief Complaint: "The police brought me here." Problems Identified/Issues Discussed: No new events overnight. Patient is calmer, but continues to be disorganized, labile, w/ poor insight/judgment into his need for medical and psychiatric medications. Psychoeducation provided on the importance of compliance w/ treatment. Medication Change: Yes (Increase Risperdal) Medical Record Reviewed: Yes Consults ordered or reviewed: Medicine, Podiatry, PT Mental Status Examination - Cognitive Function Orientation: Person, Place, Situation, Time Memory: Impaired Attention: Poor Concentration: Poor Association: Loose Fund of Knowledge: Poor Decription of patient's judgement and insights: Poor I/J - Mood Mood: Neutral - Affect Affect: Other (Labile) - Speech Speech: Pressured - Formal Thought Process Formal Thought Process: Loosening of associations, Flight of ideas, Circumstantial Psychotic Thoughts and Behaviors: Denies AH/VH, but seems internally preoccupied - Suicidal Ideation Suicidal Ideation: No - Homicidal Ideation Homicidal Ideation: No Goal/Treatment Plan - Goal/Treatment Plan Need for Continued Stay: Remain at risks for inpatient hospitalization, Discharge may exacerbated symptoms, Severe functional impairment Progress Toward Problem(s) and Goals/Treatment Plan: Schizoaffective Disorder; r/o Dementia -Individual and group therapy -Medicine consult -Increase Risperdal -Dietitian referral -Podiatry consult -PT -Disposition planning Estimated Date of D/C: 11/26/17
--- NOTE | 2017-11-22 12:02 | PN ---
DATE: 11/22/2017 SUBJECTIVE: The patient seen and examined. Interim events noted. Psychiatry followup and Podiatry followup and interventions noted and appreciated. The patient remains in geropsych unit, still remains uncooperative, was refusing management of high sugar even though level was more than 400, refuses to accept the fact that he has diabetes. Denies any specific complaint. No chest pain. No shortness of breath, although does admit to having problem with the legs, which are most likely from diabetic neuropathy. Denies any chest pain or shortness of breath. PHYSICAL EXAMINATION: GENERAL: The patient is in no acute distress. VITAL SIGNS: Stable. HEART: S1 and S2, normal and regular. LUNGS: Good bilateral air exchange. ABDOMEN: Soft and nontender. EXTREMITIES: No edema. No calf swelling. No tenderness. No acute ischemia. 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 DIAGNOSTIC DATA: Available diagnostic data reviewed as mentioned earlier. Accu-Cheks are mainly in 200, with reading today morning of 442. PLAN: As ordered. Case and plan was discussed with the patient as the patient is not really comprehending and accepting that he has diabetes. Agustin Alvarez MD
[2017-11-22] MEDS: GlipiZIDE 10 mg SR Tab PO SCH (14:36)
[2017-11-23] MEDS: Risperidone M TAB 2 MG PO SCH ×2 (08:13→21:09)
[2017-11-23] MEDS: Insulin Regular 100 units/ml SC SCH ×4 (08:14→21:11)
[2017-11-23] MEDS: GlipiZIDE 10 mg SR Tab PO SCH (08:14)
[2017-11-23] MEDS: Levothyroxine 25 MCG TAB PO SCH (08:15)
--- NOTE | 2017-11-23 10:09 | PCM.PYCHPN ---
Psychiatric Progress Note - Psychiatric Progress Note Patient seen today, length of contact: Patient evaluated, case discussed w/ team , chart reviewed Patient Chief Complaint: "The police brought me here." Problems Identified/Issues Discussed: Patient continues to be disorganized at times, w/ poor insight/judgment. He does not understand why he needs medical or psychiatric treatment, but has been complaint with medications. Psychoeducation provided re: importance of medications and his current medical and psychiatric issues. Medication Change: No Medical Record Reviewed: Yes Consults ordered or reviewed: Medicine, Podiatry, PT Mental Status Examination - Cognitive Function Orientation: Person, Place, Situation, Time Memory: Impaired Attention: Poor Concentration: Poor Association: Loose Fund of Knowledge: Poor Decription of patient's judgement and insights: Poor I/J - Mood Mood: Neutral - Affect Affect: Other (Labile) - Speech Speech: Pressured - Formal Thought Process Formal Thought Process: Loosening of associations, Flight of ideas, Circumstantial Psychotic Thoughts and Behaviors: Denies AH/VH, but seems internally preoccupied - Suicidal Ideation Suicidal Ideation: No - Homicidal Ideation Homicidal Ideation: No Goal/Treatment Plan - Goal/Treatment Plan Need for Continued Stay: Remain at risks for inpatient hospitalization, Discharge may exacerbated symptoms, Severe functional impairment Progress Toward Problem(s) and Goals/Treatment Plan: Schizoaffective Disorder; r/o Dementia -Individual and group therapy -Medicine consult -Continue Risperdal -Dietitian referral -Podiatry consult -PT -Disposition planning Estimated Date of D/C: 11/29/17
--- NOTE | 2017-11-23 10:40 | CP.PCM.CON ---
History of Present Illness - History of Present Illness History of Present Illness: PT is a 72 year old male admitted to [facility] and referred to the proposal writer for evaluation. Only portions of the DRS could be administered due to patient's visual deficits. On tasks administered, pt scored in the Deficient Range on Attention, Conceptualization, Memory and Initation tasks. Pt was able to repeat four digits forward though 0 backward. On Initiation tasks he recalled only 12 items from a supermarket in 60 seconds. Pt was unable to copy any drawings due to visual issues. Pt's Abstraction skills were impaired. He was unable to communicate similarities between items. MEmory was impaired. Pt was unable to state the day, date, mayor, governor. He was unable to recall sentences following a five minute delay. Score 100> Deficits noted on evaluation Thank you for this referral Past Patient History - Past Medical History & Family History Past Medical History?: Yes - Past Social History Smoking Status: Former Smoker - CARDIAC Hx Cardiac Disorders: No Hx Hypertension: No - PULMONARY Hx Respiratory Disorders: No Hx Tuberculosis: No - NEUROLOGICAL Hx Neurological Disorder: Yes Hx Alzheimer's Disease: Yes Hx Dementia: Yes Hx Seizures: No - HEENT Hx HEENT Problems: No - RENAL Hx Chronic Kidney Disease: No - ENDOCRINE/METABOLIC Hx Diabetes Mellitus Type 2: Yes - HEMATOLOGICAL/ONCOLOGICAL Hx Blood Disorders: Yes Hx Human Immunodeficiency Virus (HIV): No - INTEGUMENTARY Hx Dermatological Problems: No - MUSCULOSKELETAL/RHEUMATOLOGICAL Hx Musculoskeletal Disorders: Yes Hx Falls: Yes - GASTROINTESTINAL Hx Gastrointestinal Disorders: No - GENITOURINARY/GYNECOLOGICAL Hx Genitourinary Disorders: No Hx Sexually Transmitted Disorders: No - PSYCHIATRIC Hx Bipolar Disorder: Yes Hx Schizophrenia: Yes Hx Substance Use: No - SURGICAL HISTORY Hx Surgeries: Yes Other/Comment: stated had surgery for nosebleeding - ANESTHESIA Hx Anesthesia: No Hx Anesthesia Reactions: No Hx Malignant Hyperthermia: No Meds Allergies/Adverse Reactions: Allergies Allergy/AdvReac Type Severity Reaction Status Date / Time No Known Allergies Allergy Verified 11/17/17 12:42 - Medications Medications: Current Medications Acetaminophen (Tylenol 325mg Tab) 650 mg PO Q4 PRN PRN Reason: Pain, moderate (4-7) Al Hydrox/Mg Hydrox/Simethicone (Maalox Plus 30 Ml) 30 ml PO Q4 PRN PRN Reason: Dyspepsia Aspirin (Aspirin Chewable) 81 mg PO DAILY [facility] Last Admin: 11/23/17 08:14 Dose: 81 mg Bismuth Subsalicylate (Pepto-Bismol) 524 mg PO Q4 PRN PRN Reason: Diarrhea Diphenhydramine HCl (Benadryl) 50 mg IM Q6 PRN PRN Reason: Other Diphenhydramine HCl (Benadryl) 50 mg PO Q6 PRN PRN Reason: Other Glipizide (Glucotrol Xl) 10 mg PO BRK [facility] Last Admin: 11/23/17 08:14 Dose: 10 mg Haloperidol (Haldol) 2 mg PO Q6 PRN PRN Reason: Agitation Haloperidol Lactate (Haldol) 2 mg IM Q6 PRN PRN Reason: Agitation Insulin Human Regular (Humulin R) 0 units SC [facility] PRN Reason: Protocol Last Admin: 11/23/17 08:14 Dose: 4 unit Levothyroxine Sodium (Synthroid) 25 mcg PO DAILY@0630 [facility] Last Admin: 11/23/17 08:15 Dose: 25 mcg Lorazepam (Ativan) 0.5 mg PO HS PRN PRN Reason: Insomnia Stop: 12/01/17 17:44 Last Admin: 11/19/17 23:03 Dose: 0.5 mg Lorazepam (Ativan) 0.5 mg PO Q6 PRN PRN Reason: Anixety/Agitation Stop: 12/01/17 17:44 Magnesium Hydroxide (Milk Of Magnesia) 30 ml PO HS PRN PRN Reason: Constipation Metformin HCl (Glucophage) 1,000 mg PO BIDWM [facility] Last Admin: 11/23/17 08:13 Dose: 1,000 mg Risperidone (Risperdal M-Tab) 2 mg PO Q12 [facility] Last Admin: 11/23/17 08:13 Dose: 2 mg Sitagliptin Phosphate (Januvia) 100 mg PO DAILY [facility] Last Admin: 11/23/17 08:13 Dose: 100 mg Results - Vital Signs Recent Vital Signs: Last Vital Signs Temp 97 F L 11/23/17 06:00 Pulse 92 H 11/23/17 06:00 Resp 19 11/23/17 06:00 BP 129/70 11/23/17 06:00 Pulse Ox 97 11/17/17 15:48 - Labs Result Diagrams: 11/18/17 06:52 11/18/17 06:52 Labs: Laboratory Results - last 24 hr 11/22/17 11/22/17 15:47 20:18 POC Glucose (mg/dL) 178 H 182 H
--- NOTE | 2017-11-23 13:45 | PN ---
DATE: 11/23/2017 SUBJECTIVE: The patient seen and examined. Interim events noted. Psychiatry followup and intervention noted and appreciated. The patient remains in geropsych unit, awake, responsive, eating breakfast. Feels okay. No chest pain. No shortness of breath. No dizziness. No side effect of medication. No symptoms of low sugar. PHYSICAL EXAMINATION: GENERAL: The patient is in no acute distress. VITAL SIGNS: Stable. Physical exam is essentially unchanged. DIAGNOSTIC DATA: Available diagnostic data reviewed. Accu-Cheks are acceptable except the morning one of 300. ASSESSMENT AND PLAN: Overall, the patient's general medical condition is stable. The patient remains . Plan as ordered. Agustin Alvarez MD
[2017-11-24] MEDS: GlipiZIDE 10 mg SR Tab PO SCH (09:00)
[2017-11-24] MEDS: Levothyroxine 25 MCG TAB PO SCH (09:01)
[2017-11-24] MEDS: Risperidone M TAB 2 MG PO SCH ×2 (09:01→21:31)
[2017-11-24] MEDS: Insulin Regular 100 units/ml SC SCH ×4 (09:03→21:31)
--- NOTE | 2017-11-24 13:52 | PN ---
DATE: 11/24/2017 SUBJECTIVE: The patient seen and examined. Interim events noted. Psychiatric and psychotherapist's intervention noted and appreciated. The patient remains in geropsych unit. The patient denies any specific complaint. No chest pain. No shortness of breath. He remains adamant about not having diabetes. PHYSICAL EXAMINATION: GENERAL: The patient is in no acute distress. VITAL SIGNS: Stable. HEART: S1 and S2, normal and regular. LUNGS: Good bilateral air exchange. ABDOMEN: Soft and nontender. EXTREMITIES: No edema. No calf swelling. No tenderness. No acute ischemia. 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 DIAGNOSTIC DATA: Available diagnostic data reviewed. Accu-Chek was too high, much better. ASSESSMENT AND PLAN: Plan as ordered. Agustin Alvarez MD
--- NOTE | 2017-11-24 15:05 | CP.PCM.PN ---
Subjective - Date & Time of Evaluation Date of Evaluation: 11/24/17 Time of Evaluation: 14:59 - Subjective Subjective: Podiatry progress note for Dr. Diaz 72 years old male patient was seen and evaluated in psych for elongated nails and hyperkeratotic lesions to bilateral feet. Patient denies of any pain to bilateral LE. Patient appears in NAD. Patient denies of any acute overnight events. Denies of any recent F/N/V/C/SOB/CP/headache. No other pedal complains. Patient foot wasn't dressed when he was seen. Also he wasn't wearing the surgical shoe Objective - Vital Signs/Intake and Output Vital Signs (last 24 hours): Temp Pulse Resp BP Pulse Ox 97.1 F L 90 19 105/76 97 11/24/17 05:48 11/24/17 05:48 11/24/17 05:48 11/24/17 05:48 11/17/17 15:48 - Medications Medications: Current Medications Acetaminophen (Tylenol 325mg Tab) 650 mg PO Q4 PRN PRN Reason: Pain, moderate (4-7) Al Hydrox/Mg Hydrox/Simethicone (Maalox Plus 30 Ml) 30 ml PO Q4 PRN PRN Reason: Dyspepsia Aspirin (Aspirin Chewable) 81 mg PO DAILY [facility] Last Admin: 11/24/17 08:59 Dose: 81 mg Bismuth Subsalicylate (Pepto-Bismol) 524 mg PO Q4 PRN PRN Reason: Diarrhea Diphenhydramine HCl (Benadryl) 50 mg IM Q6 PRN PRN Reason: Other Diphenhydramine HCl (Benadryl) 50 mg PO Q6 PRN PRN Reason: Other Glipizide (Glucotrol Xl) 10 mg PO BRK [facility] Last Admin: 11/24/17 09:00 Dose: 10 mg Haloperidol (Haldol) 2 mg PO Q6 PRN PRN Reason: Agitation Haloperidol Lactate (Haldol) 2 mg IM Q6 PRN PRN Reason: Agitation Insulin Human Regular (Humulin R) 0 units SC [facility] PRN Reason: Protocol Last Admin: 11/24/17 12:11 Dose: Not Given Levothyroxine Sodium (Synthroid) 25 mcg PO DAILY@0630 [facility] Last Admin: 11/24/17 09:01 Dose: 25 mcg Lorazepam (Ativan) 0.5 mg PO HS PRN PRN Reason: Insomnia Stop: 12/01/17 17:44 Last Admin: 11/19/17 23:03 Dose: 0.5 mg Lorazepam (Ativan) 0.5 mg PO Q6 PRN PRN Reason: Anixety/Agitation Stop: 12/01/17 17:44 Magnesium Hydroxide (Milk Of Magnesia) 30 ml PO HS PRN PRN Reason: Constipation Metformin HCl (Glucophage) 1,000 mg PO BIDWM [facility] Last Admin: 11/24/17 08:59 Dose: 1,000 mg Risperidone (Risperdal M-Tab) 2 mg PO Q12 [facility] Last Admin: 11/24/17 09:01 Dose: 2 mg Sitagliptin Phosphate (Januvia) 100 mg PO DAILY [facility] Last Admin: 11/24/17 09:00 Dose: 100 mg Sitagliptin Phosphate (Januvia) 100 mg PO DAILY [facility] Last Admin: 11/24/17 09:03 Dose: 100 mg - Labs Labs: 11/18/17 06:52 11/18/17 06:52 - Constitutional Appears: Well, Non-toxic, No Acute Distress - Head Exam Head Exam: ATRAUMATIC, NORMOCEPHALIC - Extremities Exam Additional comments: LE focused exam: VASC: DP/PT pulses are faintly palpable. Cap refill time: < 3 seconds to all digits. Skin temperature warm to cool from proximal to distal. no pitting or non-pitting edema noted NEURO: Gross and protective sensations are intact DERM: Hyperkeratotic lesions with thick epidermal layer noted on the plantar aspect of the metatarsal head 1 and 5 - underlying wounds suspected, no inter digital maceration, no lesions present and no clinical suspicion of active infection. The hyperkeratotic lesions appears softer than last time he was seem MSK: Pes cavus, no pain during AROM and PROM at the AJ or MTPJ, no pain on palpation of the hyperkeratotic lesions - Neurological Exam Neurological Exam: Alert, Awake, Oriented x3 - Psychiatric Exam Psychiatric exam: Normal Affect, Normal Mood Assessment and Plan - Assessment and Plan (Free Text) Assessment: 72 year old male patient seen and evaluated for 1). onychomycosis 2). Hyperkeratotic lesions with suspected wounds secondary to pressure Plan: Patient seen and evaluated at the bed side Discussed plan with attending Dr. Diaz F00t dressing applied to left foot using DSD wet to dry to soften the hyperkeratotic lesions No plan for debridement of hyperkeratotic lesions as they appear stable with no pain, bleeding, drainage, or signs of infection Patient instructed not to remove the dressings and to use the surgical shoe whenever he is ambulating. Patient expressed verbal understanding. Podiatry to continue to follow up the patient while in-house.
--- NOTE | 2017-11-24 16:02 | PCM.PYCHPN ---
Psychiatric Progress Note - Psychiatric Progress Note Patient seen today, length of contact: Patient evaluated, case discussed w/ team , chart reviewed Patient Chief Complaint: alteration in cognition Problems Identified/Issues Discussed: alteration in cognition Medical Problems: per chart Diagnostic Results: alteration in cognition alteration self care Medication Change: No Medical Record Reviewed: Yes Consults ordered or reviewed: deferred Mental Status Examination - Cognitive Function Orientation: Person, Place, Situation, Time Memory: Impaired Attention: Poor Concentration: Poor Association: Loose Fund of Knowledge: Poor Decription of patient's judgement and insights: impaired - Mood Mood: Neutral - Affect Affect: Other (Labile) - Speech Speech: Pressured - Formal Thought Process Formal Thought Process: Loosening of associations, Flight of ideas, Circumstantial - Suicidal Ideation Suicidal Ideation: No - Homicidal Ideation Homicidal Ideation: No Goal/Treatment Plan - Goal/Treatment Plan Need for Continued Stay: Remain at risks for inpatient hospitalization, Discharge may exacerbated symptoms, Severe functional impairment Progress Toward Problem(s) and Goals/Treatment Plan: inpt milieu adjust meds per status vital signs and clinical observtion per protocol and per status discharge planning in progress\ falls precautions Estimated Date of D/C: 11/29/17 - Smoking Cessation Smoking Cessation Initiated: No Reason for not providing: deferred
[2017-11-25] MEDS: Levothyroxine 25 MCG TAB PO SCH (06:11)
[2017-11-25] MEDS: Risperidone M TAB 2 MG PO SCH ×2 (08:34→22:20)
[2017-11-25] MEDS: GlipiZIDE 10 mg SR Tab PO SCH (08:35)
[2017-11-25] MEDS: Insulin Regular 100 units/ml SC SCH ×4 (08:35→22:20)
--- NOTE | 2017-11-25 10:38 | PN ---
DATE: 11/25/2017 SUBJECTIVE: The patient is seen and examined. Interim events noted. The patient is in geropsych unit. The patient is . He has diabetes, and at times he remains uncooperative. PHYSICAL EXAMINATION: GENERAL: The patient is in no acute distress. VITAL SIGNS: Stable. HEART: S1, S2, normal and regular. LUNGS: Good bilateral air exchange. ABDOMEN: Soft, nontender. EXTREMITIES: No edema, no calf swelling, no tenderness, no acute ischemia. 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 DIAGNOSTIC DATA: Available diagnostic data reviewed. AccuCheks are acceptable and much improved in 100s. ASSESSMENT AND PLAN: Overall, the patient's general medical condition is stable. Plan as ordered. Agustin Alvarez MD
--- NOTE | 2017-11-25 12:55 | PCM.PYCHPN ---
Psychiatric Progress Note - Psychiatric Progress Note Patient seen today, length of contact: Patient evaluated, case discussed w/ team , chart reviewed Patient Chief Complaint: alteration in cognition alteration mood self care Problems Identified/Issues Discussed: alteration in cognition Medical Problems: per chart Diagnostic Results: alteration in cognition alteration self care DSM 5 Symptoms Update: alteration mood cognition self Medication Change: No Medical Record Reviewed: Yes Consults ordered or reviewed: pt seen by hospital Mental Status Examination - Cognitive Function Orientation: Person, Place, Situation, Time Memory: Impaired Attention: Poor Concentration: Poor Association: Loose Fund of Knowledge: Poor Decription of patient's judgement and insights: impaired - Mood Mood: Neutral - Affect Affect: Other (Labile) - Speech Speech: Pressured - Formal Thought Process Formal Thought Process: Loosening of associations, Flight of ideas, Circumstantial - Suicidal Ideation Suicidal Ideation: No - Homicidal Ideation Homicidal Ideation: No Goal/Treatment Plan - Goal/Treatment Plan Need for Continued Stay: Remain at risks for inpatient hospitalization, Discharge may exacerbated symptoms, Severe functional impairment Progress Toward Problem(s) and Goals/Treatment Plan: inpt milieu adjust meds per status vital signs and clinical observtion per protocol and per status discharge planning in progress\ falls precautions Estimated Date of D/C: 11/29/17 - Smoking Cessation Smoking Cessation Initiated: No Reason for not providing: pt defers
[2017-11-26] MEDS: Levothyroxine 25 MCG TAB PO SCH (06:25)
--- NOTE | 2017-11-26 06:53 | CP.PCM.PN ---
Subjective - Date & Time of Evaluation Date of Evaluation: 11/26/17 Time of Evaluation: 06:51 - Subjective Subjective: Podiatry progress note for Dr. Diaz 72 years old male patient was seen and evaluated in psych for hyperkeratotic lesions to bilateral feet. Patient denies of any pain to bilateral LE. Patient appears in NAD. Patient denies of any acute overnight events. Denies of any recent F/N/V/C/SOB/CP/headache. No other pedal complains. Patients dressing is not intact, seen to not be wearing surgical shoe. Objective - Vital Signs/Intake and Output Vital Signs (last 24 hours): Temp Pulse Resp BP Pulse Ox 98.1 F 90 68 H 101/66 18 L 11/26/17 06:00 11/26/17 06:00 11/26/17 06:00 11/26/17 06:00 11/24/17 16:38 - Medications Medications: Current Medications Acetaminophen (Tylenol 325mg Tab) 650 mg PO Q4 PRN PRN Reason: Pain, moderate (4-7) Al Hydrox/Mg Hydrox/Simethicone (Maalox Plus 30 Ml) 30 ml PO Q4 PRN PRN Reason: Dyspepsia Aspirin (Aspirin Chewable) 81 mg PO DAILY [facility] Last Admin: 11/25/17 08:35 Dose: 81 mg Bismuth Subsalicylate (Pepto-Bismol) 524 mg PO Q4 PRN PRN Reason: Diarrhea Diphenhydramine HCl (Benadryl) 50 mg IM Q6 PRN PRN Reason: Other Diphenhydramine HCl (Benadryl) 50 mg PO Q6 PRN PRN Reason: Other Glipizide (Glucotrol Xl) 10 mg PO BRK [facility] Last Admin: 11/25/17 08:35 Dose: 10 mg Haloperidol (Haldol) 2 mg PO Q6 PRN PRN Reason: Agitation Haloperidol Lactate (Haldol) 2 mg IM Q6 PRN PRN Reason: Agitation Insulin Human Regular (Humulin R) 0 units SC [facility] PRN Reason: Protocol Last Admin: 11/25/17 22:20 Dose: Not Given Levothyroxine Sodium (Synthroid) 25 mcg PO DAILY@0630 [facility] Last Admin: 11/26/17 06:25 Dose: 25 mcg Lorazepam (Ativan) 0.5 mg PO HS PRN PRN Reason: Insomnia Stop: 12/01/17 17:44 Last Admin: 11/19/17 23:03 Dose: 0.5 mg Lorazepam (Ativan) 0.5 mg PO Q6 PRN PRN Reason: Anixety/Agitation Stop: 12/01/17 17:44 Magnesium Hydroxide (Milk Of Magnesia) 30 ml PO HS PRN PRN Reason: Constipation Metformin HCl (Glucophage) 1,000 mg PO BIDWM [facility] Last Admin: 11/25/17 17:12 Dose: 1,000 mg Risperidone (Risperdal M-Tab) 2 mg PO Q12 [facility] Last Admin: 11/25/17 22:20 Dose: 2 mg Sitagliptin Phosphate (Januvia) 100 mg PO DAILY [facility] Last Admin: 11/25/17 16:41 Dose: Not Given - Labs Labs: 11/18/17 06:52 11/18/17 06:52 - Constitutional Appears: Well, Non-toxic, No Acute Distress - Head Exam Head Exam: ATRAUMATIC, NORMOCEPHALIC - Extremities Exam Additional comments: LE focused exam: VASC: DP/PT pulses are faintly palpable. Cap refill time: < 3 seconds to all digits. Skin temperature warm to cool from proximal to distal. no pitting or non-pitting edema noted NEURO: Gross and protective sensations are intact DERM: Hyperkeratotic lesions with thick epidermal layer noted on the plantar aspect of the metatarsal head 1 and 5 - underlying wounds suspected, no inter digital maceration, no lesions present and no clinical suspicion of active infection. The hyperkeratotic lesions appears softer than last time he was seem MSK: Pes cavus, no pain during AROM and PROM at the AJ or MTPJ, no pain on palpation of the hyperkeratotic lesions - Neurological Exam Neurological Exam: Alert, Awake, Oriented x3 - Psychiatric Exam Psychiatric exam: Normal Affect, Normal Mood Assessment and Plan - Assessment and Plan (Free Text) Assessment: 72 year old male patient seen and evaluated for Hyperkeratotic lesions with suspected wounds secondary to pressure Plan: Patient seen and evaluated at the bed side Discussed plan with attending Dr. Diaz Left foot dressed using hydrogel and DSD soften the hyperkeratotic lesions No plan for debridement of hyperkeratotic lesions as they appear stable with no pain, bleeding, drainage, or signs of infection Patient instructed not to remove the dressings and to use the surgical shoe whenever he is ambulating. Patient expressed verbal understanding. Podiatry to continue to follow up the patient while in-house.
[2017-11-26] MEDS: Insulin Regular 100 units/ml SC SCH ×4 (08:31→21:36)
[2017-11-26] MEDS: Risperidone M TAB 2 MG PO SCH ×2 (08:33→21:36)
[2017-11-26] MEDS: GlipiZIDE 10 mg SR Tab PO SCH (08:33)
--- NOTE | 2017-11-26 11:55 | PCM.PYCHPN ---
Psychiatric Progress Note - Psychiatric Progress Note Patient seen today, length of contact: Patient evaluated, case discussed w/ team , chart reviewed Patient Chief Complaint: "The police brought me here." Problems Identified/Issues Discussed: Patient continues to be disorganized at times, w/ poor insight/judgment and significant memory deficits. Patient is unable to understand that he has acute medical issues (including poorly controlled diabetes and HTN) and psychiatric issues (schizoaffective disorder). He just states that he has a "hormone problem." His acute and chronic medical conditions have been explained to him several times. He does not understand why he needs medical or psychiatric treatment and does not believe he needs to take any medications. Patient does not have capacity to make medical decisions at this time; nor can he care for his basic needs. Medication Change: No Medical Record Reviewed: Yes Consults ordered or reviewed: Medicine, Podiatry, PT Psychology consult PT is a 72 year old male admitted to [facility] and referred to the functional tester typewriters for evaluation. Only portions of the DRS could be administered due to patient's visual deficits. On tasks administered, pt scored in the Deficient Range on Attention, Conceptualization, Memory and Initation tasks. Pt was able to repeat four digits forward though 0 backward. On Initiation tasks he recalled only 12 items from a supermarket in 60 seconds. Pt was unable to copy any drawings due to visual issues. Pt's Abstraction skills were impaired. He was unable to communicate similarities between items. MEmory was impaired. Pt was unable to state the day, date, mayor, governor. He was unable to recall sentences following a five minute delay. Score 100> Deficits noted on evaluation Thank you for this referral Mental Status Examination - Cognitive Function Orientation: Person, Place, Situation Memory: Impaired Attention: Poor Concentration: Poor Association: Loose Fund of Knowledge: Poor Decription of patient's judgement and insights: Poor I/J - Mood Mood: Neutral - Affect Affect: Other (Labile) - Speech Speech: Pressured - Formal Thought Process Formal Thought Process: Loosening of associations, Flight of ideas, Circumstantial Psychotic Thoughts and Behaviors: Denies AH/VH - Suicidal Ideation Suicidal Ideation: No - Homicidal Ideation Homicidal Ideation: No Goal/Treatment Plan - Goal/Treatment Plan Need for Continued Stay: Remain at risks for inpatient hospitalization, Discharge may exacerbated symptoms, Severe functional impairment Progress Toward Problem(s) and Goals/Treatment Plan: Schizoaffective Disorder; Dementia -Individual and group therapy -Medicine consult -Continue Risperdal -Dietitian referral -Podiatry consult -PT -Disposition planning- patient does not have capacity to make medical decisions at this time; will discuss staring guardianship process w/ primary team and medical consult Estimated Date of D/C: 11/29/17
--- NOTE | 2017-11-26 15:03 | PCM.BM ---
Treatment Plan Problems - Problems identified on initial assessmt Problem 1 Date Initiated: 11/17/17 Time Initiated: 18:34 Date resolved: 11/24/17 Assessment reference: NA Status: Active Priority: 1 medication non adherence Date Initiated: 11/17/17 Time Initiated: 18:35 Date resolved: 11/24/17 Assessment reference: NA Status: Active Priority: 2 Treatment assets and liabiliti Patient Assests: cooperative, negotiates basic needs Patient Liabilities: live alone, poor support system, dietary restrictions, medical problems - Milieu Protocol Maintain good personal hygiene: every shift Encourage regular showers, every shift Remind patient to perform daily oral care, every shift Assist patient to perform ADL's Maintain personal safety: every shift Educate patient to report safety concerns to staff, every shift Monitor environment for contraband/sharps Medication safety: Monitor for expected outcome, potential side effects: every shift, Assess barriers to learning: every shift, Assess readiness for medication education: every shift Milieu Narrative: Schizoaffective Disorder; Dementia -Individual and group therapy -Medicine consult -Continue Risperdal -Dietitian referral -Podiatry consult -PT -Disposition planning- patient does not have capacity to make medical decisions at this time; will discuss staring guardianship process w/ primary team and medical consult Family Contact Family involvement: Famliy/SO not involved - Goals for Treatment Patient goals for treatment: "Get me coupons, help me better." Discharge/Continuing Care - Education Needs Education Needs: Patient Medication, Patient Diagnosis/Disease Process, Patient Coping Skills, Patient Placement options, Patient Community resources, Patient Activities of Daily Living, Patient Nutrition, Patient Personal Hygiene/Grooming , Patient Aftercare Safety Plan - Discharge Discharge Criteria: Tolerates medication w/o severe side effects, Ability to care for self, Reduction of target symptoms Discharge to:: Home - Additional Comments 11/19/17 14:24 Pt seen and discussed in team meeting. Reason for admission reviewed and discussed. Pt reported he was referred to the ED by 2 police offers. Pt unable to provide reason and/or explanation for hospitalization. Pt stated "I was talking like always." Pt reported residing alone and has no social/emotional support system. Pt presents with disorganized thought process, hypervebral, word slad, and very difficult for team members to follow pt's thought process. Pt's social and medical issues reviewed. 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 Pt's medications reviewed. Pr's tx plan reviewed and discussed with plan. SW to continue to follow case. - Treatment Team Participation Patient/Family/SO Statement: Schizoaffective Disorder; Dementia -Individual and group therapy -Medicine consult -Continue Risperdal -Dietitian referral -Podiatry consult -PT -Disposition planning- patient does not have capacity to make medical decisions at this time; will discuss staring guardianship process w/ primary team and medical consult Discussed with Family/SO: No Was Patient/Family/SO present at Treatment Team Meeting: Yes Treatment Plan Review Patient participation: Yes Family/SO/Caregiver participation: No Additional Comments: Pt seen and discussed in team meeting. Pt was alert and oriented to self, place , and date (November 2017). Pt continues to present with poor insight and judgment in regards to his medical issues and psychiatric history. Pt presents with disorganized thought process and rambling speech. Attending psychiatrist attempted to explain to pt his medical issues and the importance of medical follow ups and medication compliance. Pt continues to state that he does not have any medical issues besides "hormone." Pt continues to be in denial in regards to having DM and the need for medication. Psycho-education provided regrading his chronic medical issues and the importance of treatment. Pt continues to present with poor insight and becomes irritable and easily agitated when DM is discussed with him. Pt continues to present with poor memory. When asked if he was ever diagnosed with a psychiatric illness pt stated "I was in [facility] times." Pt unable to confirm his diagnosis. When asked if he was diagnosed with hypertension pt stated "never." When asked if he was diagnosed with diabetes pt stated "never that, hormone problem." Pt's medications reviewed and discussed. Pt's social and medical issues revisited. Pt continues to state that he does not have any living family and/or friends. Pt reported being concerned with his monthly rent and provided junior copywriter with verbal authorization to contact [facility] [employer] [address] to inform them of his current hospitalization. Tx plan reviewed. SW to continue to follow case. Interdisciplinary reviewed and discussed case, it is the teams recommendation that pt is not a safe discharge back home and the community due to lack of insight and judgment into his psychiatric and medical issues. SW and attending psychiatrist to initiate competency. Solar Sales Consultant will review case with director. - Problem Problem 1 Time Initiated: 18:34 medication non adherence Date Initiated: 11/17/17 Time Initiated: 18:35 Progress toward outcomes: improved - Discharge / Continuing Care Discharge to:: Group Home Behavioral Health Services: Other (Meidcation management) Health Needs: Follow up care/test, Doctor appointments, Nutritional, Medications /Rx, Educational, Recreational/Social
--- NOTE | 2017-11-26 19:08 | CP.PCM.PN ---
<Deisy Garner Y - Last Filed: 11/26/17 19:05> Subjective - Date & Time of Evaluation Date of Evaluation: 11/26/17 Time of Evaluation: 18:00 - Subjective Subjective: Pt denies any specific complaints, watching TV and pleasant Objective - Vital Signs/Intake and Output Vital Signs (last 24 hours): Temp Pulse Resp BP Pulse Ox 98.6 F 105 H 20 129/62 18 L 11/26/17 16:02 11/26/17 16:02 11/26/17 16:02 11/26/17 16:02 11/24/17 16:38 - Medications Medications: Current Medications Acetaminophen (Tylenol 325mg Tab) 650 mg PO Q4 PRN PRN Reason: Pain, moderate (4-7) Al Hydrox/Mg Hydrox/Simethicone (Maalox Plus 30 Ml) 30 ml PO Q4 PRN PRN Reason: Dyspepsia Aspirin (Aspirin Chewable) 81 mg PO DAILY [facility] Last Admin: 11/26/17 08:33 Dose: 81 mg Bismuth Subsalicylate (Pepto-Bismol) 524 mg PO Q4 PRN PRN Reason: Diarrhea Diphenhydramine HCl (Benadryl) 50 mg IM Q6 PRN PRN Reason: Other Diphenhydramine HCl (Benadryl) 50 mg PO Q6 PRN PRN Reason: Other Glipizide (Glucotrol Xl) 10 mg PO K [facility] Last Admin: 11/26/17 08:33 Dose: 10 mg Haloperidol (Haldol) 2 mg PO Q6 PRN PRN Reason: Agitation Haloperidol Lactate (Haldol) 2 mg IM Q6 PRN PRN Reason: Agitation Insulin Human Regular (Humulin R) 0 units SC [facility] PRN Reason: Protocol Last Admin: 11/26/17 16:08 Dose: Not Given Levothyroxine Sodium (Synthroid) 25 mcg PO DAILY@0630 [facility] Last Admin: 11/26/17 06:25 Dose: 25 mcg Lorazepam (Ativan) 0.5 mg PO HS PRN PRN Reason: Insomnia Stop: 12/01/17 17:44 Last Admin: 11/19/17 23:03 Dose: 0.5 mg Lorazepam (Ativan) 0.5 mg PO Q6 PRN PRN Reason: Anixety/Agitation Stop: 12/01/17 17:44 Magnesium Hydroxide (Milk Of Magnesia) 30 ml PO HS PRN PRN Reason: Constipation Metformin HCl (Glucophage) 1,000 mg PO BIDWM [facility] Last Admin: 11/26/17 16:08 Dose: 1,000 mg Risperidone (Risperdal M-Tab) 2 mg PO Q12 [facility] Last Admin: 11/26/17 08:33 Dose: 2 mg Sitagliptin Phosphate (Januvia) 100 mg PO DAILY [facility] Last Admin: 11/26/17 08:33 Dose: 100 mg - Labs Labs: 11/18/17 06:52 11/18/17 06:52 - Constitutional Appears: Well, No Acute Distress - Head Exam Head Exam: ATRAUMATIC - Eye Exam Eye Exam: EOMI, Normal appearance Pupil Exam: NORMAL ACCOMODATION - ENT Exam ENT Exam: Mucous Membranes Moist - Neck Exam Neck Exam: Full ROM, Normal Inspection - Respiratory Exam Respiratory Exam: Clear to Ausculation Bilateral - Cardiovascular Exam Cardiovascular Exam: REGULAR RHYTHM - GI/Abdominal Exam GI & Abdominal Exam: Soft, Normal Bowel Sounds - Extremities Exam Extremities Exam: Full ROM, Normal Inspection - Neurological Exam Neurological Exam: Alert, Awake, Normal Gait, Oriented x3 - Psychiatric Exam Psychiatric exam: Normal Affect, Normal Mood - Skin Skin Exam: Normal Color Assessment and Plan - Assessment and Plan (Free Text) Assessment: 72 y/o with h/o schizoaffective d/o, bipolar d/o, DM, doing well, no thought disorder, stable mood, continue with current medical management. <Agustin Alvarez K - Last Filed: 11/27/17 10:38> Objective - Vital Signs/Intake and Output Vital Signs (last 24 hours): Temp Pulse Resp BP Pulse Ox 97.1 F L 90 19 105/63 18 L 11/27/17 05:37 11/27/17 05:37 11/27/17 05:37 11/27/17 05:37 11/24/17 16:38 - Medications Medications: Current Medications Acetaminophen (Tylenol 325mg Tab) 650 mg PO Q4 PRN PRN Reason: Pain, moderate (4-7) Al Hydrox/Mg Hydrox/Simethicone (Maalox Plus 30 Ml) 30 ml PO Q4 PRN PRN Reason: Dyspepsia Aspirin (Aspirin Chewable) 81 mg PO DAILY [facility] Last Admin: 11/27/17 08:27 Dose: 81 mg Bismuth Subsalicylate (Pepto-Bismol) 524 mg PO Q4 PRN PRN Reason: Diarrhea Diphenhydramine HCl (Benadryl) 50 mg IM Q6 PRN PRN Reason: Other Diphenhydramine HCl (Benadryl) 50 mg PO Q6 PRN PRN Reason: Other Glipizide (Glucotrol Xl) 10 mg PO BRK [facility] Last Admin: 11/27/17 08:28 Dose: 10 mg Haloperidol (Haldol) 2 mg PO Q6 PRN PRN Reason: Agitation Haloperidol Lactate (Haldol) 2 mg IM Q6 PRN PRN Reason: Agitation Insulin Human Regular (Humulin R) 0 units SC [facility] PRN Reason: Protocol Last Admin: 11/27/17 08:30 Dose: Not Given Levothyroxine Sodium (Synthroid) 25 mcg PO DAILY@0630 [facility] Last Admin: 11/27/17 06:22 Dose: 25 mcg Lorazepam (Ativan) 0.5 mg PO HS PRN PRN Reason: Insomnia Stop: 12/01/17 17:44 Last Admin: 11/19/17 23:03 Dose: 0.5 mg Lorazepam (Ativan) 0.5 mg PO Q6 PRN PRN Reason: Anixety/Agitation Stop: 12/01/17 17:44 Magnesium Hydroxide (Milk Of Magnesia) 30 ml PO HS PRN PRN Reason: Constipation Metformin HCl (Glucophage) 1,000 mg PO BIDWM [facility] Last Admin: 11/27/17 08:27 Dose: 1,000 mg Risperidone (Risperdal M-Tab) 2 mg PO Q12 [facility] Last Admin: 11/27/17 08:28 Dose: 2 mg Sitagliptin Phosphate (Januvia) 100 mg PO DAILY [facility] Last Admin: 11/27/17 08:27 Dose: 100 mg - Labs Labs: 11/18/17 06:52 11/18/17 06:52 Assessment and Plan - Assessment and Plan (Free Text) Assessment: Patient was personally seen and examined by me in rounds with residents. Available labs and diagnostic data reviewed. Case, Patient's condition and management plan discussed with residents in rounds. Agree with resident's progress note. Plan: As ordered.
[2017-11-27] MEDS: Levothyroxine 25 MCG TAB PO SCH (06:22)
[2017-11-27] MEDS: Risperidone M TAB 2 MG PO SCH ×2 (08:28→21:04)
[2017-11-27] MEDS: GlipiZIDE 10 mg SR Tab PO SCH (08:28)
[2017-11-27] MEDS: Insulin Regular 100 units/ml SC SCH ×4 (08:30→22:11)
--- NOTE | 2017-11-27 08:34 | PCM.PYCHPN ---
Psychiatric Progress Note - Psychiatric Progress Note Patient seen today, length of contact: Patient evaluated, case discussed w/ team , chart reviewed Patient Chief Complaint: "The police brought me here." Problems Identified/Issues Discussed: No new events overnight. Patient continues to be disorganized at times, w/ poor insight/judgment and significant memory deficits. Patient is unable to understand that he has acute medical issues (including poorly controlled diabetes and HTN) and psychiatric issues (schizoaffective disorder). He does not understand why he needs medical or psychiatric treatment and does not believe he needs to take any medications. Patient does not have capacity to make medical decisions at this time; nor can he care for his basic needs. Medication Change: No Medical Record Reviewed: Yes Consults ordered or reviewed: Medicine, Podiatry, PT Psychology consult PT is a 72 year old male admitted to [facility] and referred to the narrative writer for evaluation. Only portions of the DRS could be administered due to patient's visual deficits. On tasks administered, pt scored in the Deficient Range on Attention, Conceptualization, Memory and Initation tasks. Pt was able to repeat four digits forward though 0 backward. On Initiation tasks he recalled only 12 items from a supermarket in 60 seconds. Pt was unable to copy any drawings due to visual issues. Pt's Abstraction skills were impaired. He was unable to communicate similarities between items. MEmory was impaired. Pt was unable to state the day, date, mayor, governor. He was unable to recall sentences following a five minute delay. Score 100> Deficits noted on evaluation Thank you for this referral Mental Status Examination - Cognitive Function Orientation: Person, Place, Situation Memory: Impaired Attention: Poor Concentration: Poor Association: Loose Fund of Knowledge: Poor Decription of patient's judgement and insights: Poor I/J - Mood Mood: Neutral - Affect Affect: Broad - Speech Speech: Pressured - Formal Thought Process Formal Thought Process: Loosening of associations, Flight of ideas, Circumstantial Psychotic Thoughts and Behaviors: Denies AH/VH - Suicidal Ideation Suicidal Ideation: No - Homicidal Ideation Homicidal Ideation: No Goal/Treatment Plan - Goal/Treatment Plan Need for Continued Stay: Remain at risks for inpatient hospitalization, Discharge may exacerbated symptoms, Severe functional impairment Progress Toward Problem(s) and Goals/Treatment Plan: Schizoaffective Disorder; Dementia -Individual and group therapy -Medicine consult -Continue Risperdal -Dietitian referral -Podiatry consult -PT -Disposition planning- patient does not have capacity to make medical decisions at this time; will start guardianship process Estimated Date of D/C: 12/07/17
--- NOTE | 2017-11-27 09:58 | PN ---
DATE: 11/27/2017 SUBJECTIVE: The patient was seen and examined. Interim events noted. Consults noted and appreciated. appreciated. The patient remains in Geropsych Unit, not medically competent. The patient is awake, alert, oriented and ambulatory. Feels okay but still . The patient denies any specific complaints of chest pain or shortness of breath. PHYSICAL EXAMINATION: GENERAL: The patient is in no acute distress. VITAL SIGNS: Stable. HEART: S1, S2, normal and regular. LUNGS: Good bilateral air exchange. ABDOMEN: Soft and nontender. EXTREMITIES: Some edema. No calf swelling or tenderness. No acute ischemia. CHIEF NURSE: Exam is essentially unchanged. DIAGNOSTIC DATA: Available diagnostic data reviewed. ASSESSMENT AND PLAN: Overall, the patient's Accu-Cheks are acceptable. Overall the patient's general medical condition is stable. Sugar is much better controlled. The patient is refusing any injectable treatment. Plan as ordered. Case and plan discussed with the patient although it is mentioned earlier, the patient is able to comprehend and participate in his medical treatment. Plan as ordered. Agustin Alvarez MD
[2017-11-28] MEDS: Levothyroxine 25 MCG TAB PO SCH (06:33)
--- NOTE | 2017-11-28 08:10 | PCM.PYCHPN ---
Psychiatric Progress Note - Psychiatric Progress Note Patient seen today, length of contact: Patient evaluated, case discussed w/ team , chart reviewed Patient Chief Complaint: "The police brought me here." Problems Identified/Issues Discussed: No new events. Patient continues to be disorganized, w/ poor insight/judgment and significant memory deficits. Patient is unable to understand that he has acute medical issues (including poorly controlled diabetes and HTN) and psychiatric issues (schizoaffective disorder). He does not understand why he needs medical or psychiatric treatment and does not believe he needs to take any medications. Patient does not have capacity to make medical decisions at this time; nor can he care for his basic needs. Medication Change: No Medical Record Reviewed: Yes Consults ordered or reviewed: Medicine, Podiatry, PT Psychology consult PT is a 72 year old male admitted to [facility] and referred to the com writer for evaluation. Only portions of the DRS could be administered due to patient's visual deficits. On tasks administered, pt scored in the Deficient Range on Attention, Conceptualization, Memory and Initation tasks. Pt was able to repeat four digits forward though 0 backward. On Initiation tasks he recalled only 12 items from a supermarket in 60 seconds. Pt was unable to copy any drawings due to visual issues. Pt's Abstraction skills were impaired. He was unable to communicate similarities between items. MEmory was impaired. Pt was unable to state the day, date, mayor, governor. He was unable to recall sentences following a five minute delay. Score 100> Deficits noted on evaluation Thank you for this referral Mental Status Examination - Cognitive Function Orientation: Person, Place, Situation Memory: Impaired Attention: Poor Concentration: Poor Association: Loose Fund of Knowledge: Poor Decription of patient's judgement and insights: Poor I/J - Mood Mood: Neutral - Affect Affect: Broad - Speech Speech: Pressured - Formal Thought Process Formal Thought Process: Loosening of associations, Flight of ideas, Circumstantial Psychotic Thoughts and Behaviors: Denies AH/VH - Suicidal Ideation Suicidal Ideation: No - Homicidal Ideation Homicidal Ideation: No Goal/Treatment Plan - Goal/Treatment Plan Need for Continued Stay: Remain at risks for inpatient hospitalization, Discharge may exacerbated symptoms, Severe functional impairment Progress Toward Problem(s) and Goals/Treatment Plan: Schizoaffective Disorder; Dementia -Individual and group therapy -Medicine consult -Continue Risperdal -Dietitian referral -Podiatry consult -PT -Disposition planning- patient does not have capacity to make medical decisions at this time; will start guardianship process Estimated Date of D/C: 12/07/17
[2017-11-28] MEDS: Risperidone M TAB 2 MG PO SCH ×2 (08:35→21:24)
[2017-11-28] MEDS: GlipiZIDE 10 mg SR Tab PO SCH (08:36)
[2017-11-28] MEDS: Insulin Regular 100 units/ml SC SCH ×4 (08:37→21:23)
--- NOTE | 2017-11-28 11:23 | PN ---
DATE: 11/28/2017 SUBJECTIVE: The patient seen and examined. Interim events noted. The patient remains in geropsych unit. Awake, responsive still . Denies any medical complaint. No chest pain. No shortness of breath. No specific issue reported by nursing staff. PHYSICAL EXAMINATION: GENERAL: The patient is in no acute distress. VITAL SIGNS: Stable. Physical exam is essentially unchanged. DIAGNOSTIC DATA: Available diagnostic data reviewed. Accu-Cheks are acceptable. ASSESSMENT AND PLAN: Overall, the patient's general medical condition is stable. Plan as ordered. Agustin Alvarez MD
--- NOTE | 2017-11-29 08:01 | PCM.PYCHPN ---
Psychiatric Progress Note - Psychiatric Progress Note Patient seen today, length of contact: Patient evaluated, case discussed w/ team , chart reviewed Patient Chief Complaint: "The police brought me here." Problems Identified/Issues Discussed: No new events overnight. Patient continues to be disorganized, w/ poor insight/ judgment and significant memory deficits. Patient is unable to understand that he has acute medical issues (including poorly controlled diabetes and HTN) and psychiatric issues (schizoaffective disorder). He does not understand why he needs medical or psychiatric treatment and does not believe he needs to take any medications. Patient does not have capacity to make medical decisions at this time; nor can he care for his basic needs. Medication Change: No Medical Record Reviewed: Yes Consults ordered or reviewed: Medicine, Podiatry, PT Psychology consult PT is a 72 year old male admitted to [facility] and referred to the comic writer for evaluation. Only portions of the DRS could be administered due to patient's visual deficits. On tasks administered, pt scored in the Deficient Range on Attention, Conceptualization, Memory and Initation tasks. Pt was able to repeat four digits forward though 0 backward. On Initiation tasks he recalled only 12 items from a supermarket in 60 seconds. Pt was unable to copy any drawings due to visual issues. Pt's Abstraction skills were impaired. He was unable to communicate similarities between items. MEmory was impaired. Pt was unable to state the day, date, mayor, governor. He was unable to recall sentences following a five minute delay. Score 100> Deficits noted on evaluation Thank you for this referral Mental Status Examination - Cognitive Function Orientation: Person, Place, Situation Memory: Impaired Attention: Poor Concentration: Poor Association: Loose Fund of Knowledge: Poor Decription of patient's judgement and insights: Poor I/J - Mood Mood: Neutral - Affect Affect: Broad - Speech Speech: Pressured - Formal Thought Process Formal Thought Process: Loosening of associations, Flight of ideas, Circumstantial Psychotic Thoughts and Behaviors: Denies AH/VH - Suicidal Ideation Suicidal Ideation: No - Homicidal Ideation Homicidal Ideation: No Goal/Treatment Plan - Goal/Treatment Plan Need for Continued Stay: Remain at risks for inpatient hospitalization, Discharge may exacerbated symptoms, Severe functional impairment Progress Toward Problem(s) and Goals/Treatment Plan: Schizoaffective Disorder; Dementia -Individual and group therapy -Medicine consult -Continue Risperdal -Dietitian referral -Podiatry consult -PT -Disposition planning- patient does not have capacity to make medical decisions at this time; will start guardianship process Estimated Date of D/C: 12/07/17
[2017-11-29] MEDS: GlipiZIDE 10 mg SR Tab PO SCH (08:44)
[2017-11-29] MEDS: Insulin Regular 100 units/ml SC SCH ×4 (08:45→21:12)
[2017-11-29] MEDS: Risperidone M TAB 2 MG PO SCH ×2 (08:45→21:11)
[2017-11-29] MEDS: Levothyroxine 25 MCG TAB PO SCH (08:46)
--- NOTE | 2017-11-29 11:22 | PN ---
DATE: 11/29/2017 SUBJECTIVE: The patient seen and examined. Interim events noted. Psychiatry followup and intervention noted and appreciated. The patient remains in geropsych unit. The patient feels okay. Denies any specific medical complaints. Has very poor insight in his medical condition. Still refusing to accept him having diabetes despite stating the fact that sugars were 300 before and now they are down to 100 with medications, but the patient is not able to comprehend the fact. PHYSICAL EXAMINATION: GENERAL: The patient is in no acute distress. VITAL SIGNS: Stable. Physical exam is essentially unchanged. DIAGNOSTIC DATA: Available diagnostic data reviewed. Accu-Cheks are acceptable. ASSESSMENT AND PLAN: Overall, the patient is medically stable. Plan as ordered. Agustin Alvarez MD
--- NOTE | 2017-11-29 17:04 | CP.PCM.PN ---
Subjective - Date & Time of Evaluation Date of Evaluation: 11/29/17 Time of Evaluation: 17:02 - Subjective Subjective: Podiatry progress note for Dr. Diaz 72 years old male patient was seen and evaluated in psych for hyperkeratotic lesions to bilateral feet. Patient denies of any pain to bilateral LE. Patient appears in NAD. Patient denies of any acute overnight events. Denies of any recent F/N/V/C/SOB/CP/headache. No other pedal complains. Patients dressing is not intact, seen to not be wearing surgical shoe. Objective - Vital Signs/Intake and Output Vital Signs (last 24 hours): Temp Pulse Resp BP Pulse Ox 97 F L 89 18 92/60 L 18 L 11/29/17 16:38 11/29/17 16:38 11/29/17 16:38 11/29/17 16:38 11/24/17 16:38 - Medications Medications: Current Medications Acetaminophen (Tylenol 325mg Tab) 650 mg PO Q4 PRN PRN Reason: Pain, moderate (4-7) Al Hydrox/Mg Hydrox/Simethicone (Maalox Plus 30 Ml) 30 ml PO Q4 PRN PRN Reason: Dyspepsia Aspirin (Aspirin Chewable) 81 mg PO DAILY [facility] Last Admin: 11/29/17 08:44 Dose: 81 mg Bismuth Subsalicylate (Pepto-Bismol) 524 mg PO Q4 PRN PRN Reason: Diarrhea Diphenhydramine HCl (Benadryl) 50 mg IM Q6 PRN PRN Reason: Other Diphenhydramine HCl (Benadryl) 50 mg PO Q6 PRN PRN Reason: Other Glipizide (Glucotrol Xl) 10 mg PO BRK [facility] Last Admin: 11/29/17 08:44 Dose: 10 mg Haloperidol (Haldol) 2 mg PO Q6 PRN PRN Reason: Agitation Haloperidol Lactate (Haldol) 2 mg IM Q6 PRN PRN Reason: Agitation Insulin Human Regular (Humulin R) 0 units SC [facility] PRN Reason: Protocol Last Admin: 11/29/17 16:36 Dose: Not Given Levothyroxine Sodium (Synthroid) 25 mcg PO DAILY@0630 [facility] Last Admin: 11/29/17 08:46 Dose: 25 mcg Lorazepam (Ativan) 0.5 mg PO HS PRN PRN Reason: Insomnia Stop: 12/01/17 17:44 Last Admin: 11/29/17 01:32 Dose: 0.5 mg Lorazepam (Ativan) 0.5 mg PO Q6 PRN PRN Reason: Anixety/Agitation Stop: 12/01/17 17:44 Magnesium Hydroxide (Milk Of Magnesia) 30 ml PO HS PRN PRN Reason: Constipation Metformin HCl (Glucophage) 1,000 mg PO BIDWM [facility] Last Admin: 11/29/17 16:36 Dose: 1,000 mg Risperidone (Risperdal M-Tab) 2 mg PO Q12 [facility] Last Admin: 11/29/17 08:45 Dose: 2 mg Sitagliptin Phosphate (Januvia) 100 mg PO DAILY [facility] Last Admin: 11/29/17 08:45 Dose: 100 mg - Labs Labs: 11/18/17 06:52 11/18/17 06:52 - Constitutional Appears: Well, Non-toxic, No Acute Distress - Head Exam Head Exam: ATRAUMATIC, NORMOCEPHALIC - Extremities Exam Additional comments: LE focused exam: VASC: DP/PT pulses are faintly palpable. Cap refill time: < 3 seconds to all digits. Skin temperature warm to cool from proximal to distal. no pitting or non-pitting edema noted NEURO: Gross and protective sensations are intact DERM: Hyperkeratotic lesions with thick epidermal layer noted on the plantar aspect of the metatarsal head 1 and 5 - underlying wounds suspected, no inter digital maceration, no lesions present and no clinical suspicion of active infection. The hyperkeratotic lesions appears softer than last time he was seem MSK: Pes cavus, no pain during AROM and PROM at the AJ or MTPJ, no pain on palpation of the hyperkeratotic lesions - Neurological Exam Neurological Exam: Alert, Awake, Oriented x3 - Psychiatric Exam Psychiatric exam: Normal Affect, Normal Mood Assessment and Plan - Assessment and Plan (Free Text) Assessment: 72 year old male patient seen and evaluated for Hyperkeratotic lesions with suspected wounds secondary to pressure Plan: Patient seen and evaluated at the bed side Discussed plan with attending Dr. Diaz Aseptic debridement of wounds sterile #10 blade Left foot dressed using DSD No plan for further podiatric intervention as they appear stable with no pain, bleeding, drainage, or signs of infection Patient instructed not to remove the dressings and to use the surgical shoe whenever he is ambulating. Patient expressed verbal understanding. Podiatry to continue to follow up the patient while in-house.
[2017-11-30] MEDS: Levothyroxine 25 MCG TAB PO SCH (06:44)
--- NOTE | 2017-11-30 08:23 | PCM.PYCHPN ---
Psychiatric Progress Note - Psychiatric Progress Note Patient seen today, length of contact: Patient evaluated, case discussed w/ team , chart reviewed Patient Chief Complaint: "The police brought me here." Problems Identified/Issues Discussed: No new events. Patient continues to have poor insight/judgment and significant memory deficits. Patient is unable to understand that he has acute medical issues and psychiatric issues. He does not understand why he needs medical or psychiatric treatment and does not believe he needs to take any medications. Patient does not have capacity to make medical decisions at this time; nor can he care for his basic needs. Medication Change: No Medical Record Reviewed: Yes Consults ordered or reviewed: Medicine, Podiatry, PT Psychology consult PT is a 72 year old male admitted to [facility] and referred to the com writer for evaluation. Only portions of the DRS could be administered due to patient's visual deficits. On tasks administered, pt scored in the Deficient Range on Attention, Conceptualization, Memory and Initation tasks. Pt was able to repeat four digits forward though 0 backward. On Initiation tasks he recalled only 12 items from a supermarket in 60 seconds. Pt was unable to copy any drawings due to visual issues. Pt's Abstraction skills were impaired. He was unable to communicate similarities between items. MEmory was impaired. Pt was unable to state the day, date, mayor, governor. He was unable to recall sentences following a five minute delay. Score 100> Deficits noted on evaluation Thank you for this referral Mental Status Examination - Cognitive Function Orientation: Person, Place, Situation Memory: Impaired Attention: Poor Concentration: Poor Association: Loose Fund of Knowledge: Poor Decription of patient's judgement and insights: Poor I/J - Mood Mood: Neutral - Affect Affect: Broad - Speech Speech: Pressured - Formal Thought Process Formal Thought Process: Loosening of associations, Flight of ideas, Circumstantial Psychotic Thoughts and Behaviors: Denies AH/VH - Suicidal Ideation Suicidal Ideation: No - Homicidal Ideation Homicidal Ideation: No Goal/Treatment Plan - Goal/Treatment Plan Need for Continued Stay: Remain at risks for inpatient hospitalization, Discharge may exacerbated symptoms, Severe functional impairment Progress Toward Problem(s) and Goals/Treatment Plan: Schizoaffective Disorder; Dementia -Individual and group therapy -Medicine consult -Continue Risperdal -Dietitian referral -Podiatry consult -PT -Disposition planning- patient does not have capacity to make medical decisions at this time; will start guardianship process Estimated Date of D/C: 01/09/18
[2017-11-30] MEDS: Risperidone M TAB 2 MG PO SCH ×2 (08:41→21:29)
[2017-11-30] MEDS: GlipiZIDE 10 mg SR Tab PO SCH (08:41)
[2017-11-30] MEDS: Insulin Regular 100 units/ml SC SCH ×4 (08:42→23:58)
--- NOTE | 2017-11-30 21:19 | CP.PCM.PN ---
<TeeAlyleona - Last Filed: 11/30/17 21:28> Subjective - Date & Time of Evaluation Date of Evaluation: 11/30/17 Time of Evaluation: 10:00 - Subjective Subjective: Seen and examined at the common area in psych unit. Pleasant. No medical complaints. Denies frequent thirst or urination. Objective - Vital Signs/Intake and Output Vital Signs (last 24 hours): Temp Pulse Resp BP Pulse Ox 97.5 F L 91 H 20 101/52 L 18 L 11/30/17 16:36 11/30/17 16:36 11/30/17 16:36 11/30/17 16:36 11/24/17 16:38 - Medications Medications: Current Medications Acetaminophen (Tylenol 325mg Tab) 650 mg PO Q4 PRN PRN Reason: Pain, moderate (4-7) Al Hydrox/Mg Hydrox/Simethicone (Maalox Plus 30 Ml) 30 ml PO Q4 PRN PRN Reason: Dyspepsia Aspirin (Aspirin Chewable) 81 mg PO DAILY [facility] Last Admin: 11/30/17 08:41 Dose: 81 mg Bismuth Subsalicylate (Pepto-Bismol) 524 mg PO Q4 PRN PRN Reason: Diarrhea Diphenhydramine HCl (Benadryl) 50 mg IM Q6 PRN PRN Reason: Other Diphenhydramine HCl (Benadryl) 50 mg PO Q6 PRN PRN Reason: Other Glipizide (Glucotrol Xl) 10 mg PO K [facility] Last Admin: 11/30/17 08:41 Dose: 10 mg Haloperidol (Haldol) 2 mg PO Q6 PRN PRN Reason: Agitation Haloperidol Lactate (Haldol) 2 mg IM Q6 PRN PRN Reason: Agitation Insulin Human Regular (Humulin R) 0 units SC [facility] PRN Reason: Protocol Last Admin: 11/30/17 17:02 Dose: Not Given Levothyroxine Sodium (Synthroid) 25 mcg PO DAILY@0630 [facility] Last Admin: 11/30/17 06:44 Dose: 25 mcg Lorazepam (Ativan) 0.5 mg PO HS PRN PRN Reason: Insomnia Stop: 12/01/17 17:44 Last Admin: 11/30/17 02:34 Dose: 0.5 mg Lorazepam (Ativan) 0.5 mg PO Q6 PRN PRN Reason: Anixety/Agitation Stop: 12/01/17 17:44 Magnesium Hydroxide (Milk Of Magnesia) 30 ml PO HS PRN PRN Reason: Constipation Metformin HCl (Glucophage) 1,000 mg PO BIDWM [facility] Last Admin: 11/30/17 17:04 Dose: 1,000 mg Risperidone (Risperdal M-Tab) 2 mg PO Q12 [facility] Last Admin: 11/30/17 08:41 Dose: 2 mg Sitagliptin Phosphate (Januvia) 100 mg PO DAILY [facility] Last Admin: 11/30/17 08:41 Dose: 100 mg - Labs Labs: 11/18/17 06:52 11/18/17 06:52 - Constitutional Appears: Non-toxic, No Acute Distress - Head Exam Head Exam: ATRAUMATIC - Eye Exam Eye Exam: Normal appearance - ENT Exam ENT Exam: Mucous Membranes Moist - Respiratory Exam Respiratory Exam: Clear to Ausculation Bilateral - Cardiovascular Exam Cardiovascular Exam: REGULAR RHYTHM - Extremities Exam Extremities Exam: Normal Inspection - Neurological Exam Neurological Exam: Alert, Oriented x3 - Psychiatric Exam Psychiatric exam: Flat Affect - Skin Skin Exam: Normal Color Assessment and Plan - Assessment and Plan (Free Text) Assessment: 72 y/o with h/o schizoaffective d/o, bipolar d/o, and newly diagnosed NIDDM started on medication regimen and blood glucose checks are improved. Hemoglobin a1c 11.1. Will continue with current medical management- Glipizide, Januvia, Metformin. C/W accuchecks and diabetic diet. Discussed case with Dr. Alvarez. Johnson Oliveira, PGY2 <Agustin Alvarez - Last Filed: 12/01/17 06:04> Objective - Vital Signs/Intake and Output Vital Signs (last 24 hours): Temp Pulse Resp BP Pulse Ox 97.5 F L 91 H 20 101/52 L 18 L 11/30/17 16:36 11/30/17 16:36 11/30/17 16:36 11/30/17 16:36 11/24/17 16:38 - Medications Medications: Current Medications Acetaminophen (Tylenol 325mg Tab) 650 mg PO Q4 PRN PRN Reason: Pain, moderate (4-7) Al Hydrox/Mg Hydrox/Simethicone (Maalox Plus 30 Ml) 30 ml PO Q4 PRN PRN Reason: Dyspepsia Aspirin (Aspirin Chewable) 81 mg PO DAILY [facility] Last Admin: 11/30/17 08:41 Dose: 81 mg Bismuth Subsalicylate (Pepto-Bismol) 524 mg PO Q4 PRN PRN Reason: Diarrhea Diphenhydramine HCl (Benadryl) 50 mg IM Q6 PRN PRN Reason: Other Diphenhydramine HCl (Benadryl) 50 mg PO Q6 PRN PRN Reason: Other Glipizide (Glucotrol Xl) 10 mg PO BRK [facility] Last Admin: 11/30/17 08:41 Dose: 10 mg Haloperidol (Haldol) 2 mg PO Q6 PRN PRN Reason: Agitation Haloperidol Lactate (Haldol) 2 mg IM Q6 PRN PRN Reason: Agitation Insulin Human Regular (Humulin R) 0 units SC ACHS [facility] PRN Reason: Protocol Last Admin: 11/30/17 23:58 Dose: Not Given Levothyroxine Sodium (Synthroid) 25 mcg PO DAILY@0630 [facility] Last Admin: 11/30/17 06:44 Dose: 25 mcg Lorazepam (Ativan) 0.5 mg PO HS PRN PRN Reason: Insomnia Stop: 12/01/17 17:44 Last Admin: 12/01/17 00:21 Dose: 0.5 mg Lorazepam (Ativan) 0.5 mg PO Q6 PRN PRN Reason: Anixety/Agitation Stop: 12/01/17 17:44 Magnesium Hydroxide (Milk Of Magnesia) 30 ml PO HS PRN PRN Reason: Constipation Metformin HCl (Glucophage) 1,000 mg PO BIDWM [facility] Last Admin: 11/30/17 17:04 Dose: 1,000 mg Risperidone (Risperdal M-Tab) 2 mg PO Q12 [facility] Last Admin: 11/30/17 21:29 Dose: 2 mg Sitagliptin Phosphate (Januvia) 100 mg PO DAILY [facility] Last Admin: 11/30/17 08:41 Dose: 100 mg - Labs Labs: 11/18/17 06:52 11/18/17 06:52 Assessment and Plan - Assessment and Plan (Free Text) Assessment: Patient was personally seen and examined by me in rounds with residents. Available labs and diagnostic data reviewed. Case, Patient's condition and management plan discussed with residents in rounds. Agree with resident's progress note. Plan: As ordered.
[2017-12-01] MEDS: Levothyroxine 25 MCG TAB PO SCH (06:38)
[2017-12-01] MEDS: Insulin Regular 100 units/ml SC SCH ×4 (08:31→21:08)
[2017-12-01] MEDS: Risperidone M TAB 2 MG PO SCH ×2 (08:32→21:07)
[2017-12-01] MEDS: GlipiZIDE 10 mg SR Tab PO SCH (08:33)
--- NOTE | 2017-12-01 09:49 | PCM.PYCHPN ---
Psychiatric Progress Note - Psychiatric Progress Note Patient seen today, length of contact: Patient evaluated, case discussed w/ team , chart reviewed Patient Chief Complaint: "The police brought me here." Problems Identified/Issues Discussed: No new events overnight. Patient continues to have poor insight/judgment and significant memory deficits. Patient is unable to understand that he has acute medical issues and psychiatric issues. He does not understand why he needs medical or psychiatric treatment and does not believe he needs to take any medications. Patient does not have capacity to make medical decisions at this time; nor can he care for his basic needs. Medication Change: No Medical Record Reviewed: Yes Consults ordered or reviewed: Medicine, Podiatry, PT Psychology consult PT is a 72 year old male admitted to [facility] and referred to the play writer for evaluation. Only portions of the DRS could be administered due to patient's visual deficits. On tasks administered, pt scored in the Deficient Range on Attention, Conceptualization, Memory and Initation tasks. Pt was able to repeat four digits forward though 0 backward. On Initiation tasks he recalled only 12 items from a supermarket in 60 seconds. Pt was unable to copy any drawings due to visual issues. Pt's Abstraction skills were impaired. He was unable to communicate similarities between items. MEmory was impaired. Pt was unable to state the day, date, mayor, governor. He was unable to recall sentences following a five minute delay. Score 100> Deficits noted on evaluation Thank you for this referral Mental Status Examination - Cognitive Function Orientation: Person, Place, Situation Memory: Impaired Attention: Poor Concentration: Poor Association: Loose Fund of Knowledge: Poor Decription of patient's judgement and insights: Poor I/J - Mood Mood: Neutral - Affect Affect: Broad - Speech Speech: Pressured - Formal Thought Process Formal Thought Process: Loosening of associations, Flight of ideas, Circumstantial Psychotic Thoughts and Behaviors: Denies AH/VH - Suicidal Ideation Suicidal Ideation: No - Homicidal Ideation Homicidal Ideation: No Goal/Treatment Plan - Goal/Treatment Plan Need for Continued Stay: Remain at risks for inpatient hospitalization, Discharge may exacerbated symptoms, Severe functional impairment Progress Toward Problem(s) and Goals/Treatment Plan: Schizoaffective Disorder; Dementia -Individual and group therapy -Medicine consult -Continue Risperdal -Dietitian referral -Podiatry consult -PT -Disposition planning- patient does not have capacity to make medical decisions at this time; will start guardianship process Estimated Date of D/C: 01/09/18
--- NOTE | 2017-12-01 11:31 | PN ---
DATE: 12/01/2017 SUBJECTIVE: The patient seen and examined. Interim events noted. Psychiatric followup and intervention noted and appreciated. The patient remains in Geropsych Unit. Awake and responsive. Denies any specific complaint. No specific issue reported by nursing staff. PHYSICAL EXAMINATION: GENERAL: The patient is in no acute distress. VITAL SIGNS: Stable. Physical exam is essentially unchanged. DIAGNOSTIC DATA: Available diagnostic data reviewed. ASSESSMENT AND PLAN: Overall, the patient's general medical condition is stable. The patient remains . Plan as ordered. Agustin Alvarez MD
[2017-12-02] MEDS: Levothyroxine 25 MCG TAB PO SCH (06:15)
--- NOTE | 2017-12-02 07:58 | PCM.PYCHPN ---
Psychiatric Progress Note - Psychiatric Progress Note Patient seen today, length of contact: Patient evaluated, case discussed w/ team , chart reviewed Patient Chief Complaint: "The police brought me here." Problems Identified/Issues Discussed: No new events. Patient continues to have poor insight/judgment and significant memory deficits. Patient is unable to understand that he has acute medical issues and psychiatric issues. He does not understand why he needs medical or psychiatric treatment and does not believe he needs to take any medications. Patient does not have capacity to make medical decisions at this time; nor can he care for his basic needs. Medication Change: No Medical Record Reviewed: Yes Consults ordered or reviewed: Medicine, Podiatry, PT Psychology consult PT is a 72 year old male admitted to [facility] and referred to the telegraphic typewriter operator chief for evaluation. Only portions of the DRS could be administered due to patient's visual deficits. On tasks administered, pt scored in the Deficient Range on Attention, Conceptualization, Memory and Initation tasks. Pt was able to repeat four digits forward though 0 backward. On Initiation tasks he recalled only 12 items from a supermarket in 60 seconds. Pt was unable to copy any drawings due to visual issues. Pt's Abstraction skills were impaired. He was unable to communicate similarities between items. MEmory was impaired. Pt was unable to state the day, date, mayor, governor. He was unable to recall sentences following a five minute delay. Score 100> Deficits noted on evaluation Thank you for this referral Mental Status Examination - Cognitive Function Orientation: Person, Place, Situation Memory: Impaired Attention: Poor Concentration: Poor Association: Loose Fund of Knowledge: Poor Decription of patient's judgement and insights: Poor I/J - Mood Mood: Neutral - Affect Affect: Broad - Speech Speech: Pressured - Formal Thought Process Formal Thought Process: Loosening of associations, Flight of ideas, Circumstantial Psychotic Thoughts and Behaviors: Denies AH/VH - Suicidal Ideation Suicidal Ideation: No - Homicidal Ideation Homicidal Ideation: No Goal/Treatment Plan - Goal/Treatment Plan Need for Continued Stay: Severe functional impairment Progress Toward Problem(s) and Goals/Treatment Plan: Schizoaffective Disorder; Dementia -Individual and group therapy -Medicine consult -Continue Risperdal -Dietitian referral -Podiatry consult -PT -Disposition planning- patient does not have capacity to make medical decisions at this time; will start guardianship process Estimated Date of D/C: 01/09/18
[2017-12-02] MEDS: Insulin Regular 100 units/ml SC SCH ×4 (08:52→21:06)
[2017-12-02] MEDS: GlipiZIDE 10 mg SR Tab PO SCH (08:59)
[2017-12-02] MEDS: Risperidone M TAB 2 MG PO SCH ×2 (08:59→21:06)
[2017-12-03] MEDS: Levothyroxine 25 MCG TAB PO SCH (05:38)
--- NOTE | 2017-12-03 08:16 | PCM.PYCHPN ---
Psychiatric Progress Note - Psychiatric Progress Note Patient seen today, length of contact: Patient evaluated, case discussed w/ team , chart reviewed Patient Chief Complaint: "The police brought me here." Problems Identified/Issues Discussed: No new events over the weekend. Patient continues to have poor insight/ judgment and significant memory deficits. Patient is unable to understand that he has acute medical issues and psychiatric issues. He does not understand why he needs medical or psychiatric treatment and does not believe he needs to take any medications. Patient does not have capacity to make medical decisions at this time; nor can he care for his basic needs. Medication Change: No Medical Record Reviewed: Yes Consults ordered or reviewed: Medicine, Podiatry, PT Psychology consult PT is a 72 year old male admitted to [facility] and referred to the brief writer for evaluation. Only portions of the DRS could be administered due to patient's visual deficits. On tasks administered, pt scored in the Deficient Range on Attention, Conceptualization, Memory and Initation tasks. Pt was able to repeat four digits forward though 0 backward. On Initiation tasks he recalled only 12 items from a supermarket in 60 seconds. Pt was unable to copy any drawings due to visual issues. Pt's Abstraction skills were impaired. He was unable to communicate similarities between items. MEmory was impaired. Pt was unable to state the day, date, mayor, governor. He was unable to recall sentences following a five minute delay. Score 100> Deficits noted on evaluation Thank you for this referral Mental Status Examination - Cognitive Function Orientation: Person, Place, Situation Memory: Impaired Attention: Poor Concentration: Poor Association: Loose Fund of Knowledge: Poor Decription of patient's judgement and insights: Poor I/J - Mood Mood: Neutral - Affect Affect: Broad - Speech Speech: Pressured - Formal Thought Process Formal Thought Process: Loosening of associations, Flight of ideas, Circumstantial Psychotic Thoughts and Behaviors: Denies AH/VH - Suicidal Ideation Suicidal Ideation: No - Homicidal Ideation Homicidal Ideation: No Goal/Treatment Plan - Goal/Treatment Plan Need for Continued Stay: Severe functional impairment Progress Toward Problem(s) and Goals/Treatment Plan: Schizoaffective Disorder; Dementia -Individual and group therapy -Medicine consult -Continue Risperdal -Dietitian referral -Podiatry consult -PT -Disposition planning- patient does not have capacity to make medical decisions at this time; will start guardianship process Estimated Date of D/C: 01/09/18
[2017-12-03] MEDS: GlipiZIDE 10 mg SR Tab PO SCH (08:37)
[2017-12-03] MEDS: Insulin Regular 100 units/ml SC SCH ×4 (08:38→21:08)
[2017-12-03] MEDS: Risperidone M TAB 2 MG PO SCH ×2 (08:39→21:07)
--- NOTE | 2017-12-03 13:07 | PN ---
DATE: 12/03/2017 SUBJECTIVE: The patient seen and examined. Interim events noted. Psychiatry followup and interventions noted and appreciated. The patient remains in geropsych unit, awake, responsive and specific complaint. Still thinks different about his medical and psychiatric condition. Denies any specific complaint. No chest pain. No shortness of breath. PHYSICAL EXAMINATION: GENERAL: The patient is in no acute distress. VITAL SIGNS: Stable. HEART: S1 and S2, normal and regular. LUNGS: Good bilateral air exchange. ABDOMEN: Soft and nontender. EXTREMITIES: No edema. No calf swelling. No tenderness. No acute ischemia. POLICE RECORDS CLERK: Exam is essentially unchanged. DIAGNOSTIC DATA: Available diagnostic data reviewed. Accu-cheks are acceptable in 200 range, but the patient is very reluctant to make adjustment or adding new medications and definitely refusing injections. ASSESSMENT AND PLAN: Overall, the patient's general medical condition is stable. Plan as ordered. Agustin Alvarez MD
[2017-12-04] MEDS: Levothyroxine 25 MCG TAB PO SCH (06:28)
--- NOTE | 2017-12-04 08:08 | PCM.BM ---
Treatment Plan Problems - Problems identified on initial assessmt Problem 1 Date Initiated: 11/17/17 Time Initiated: 18:34 Date resolved: 11/24/17 Assessment reference: NA Status: Active Priority: 1 medication non adherence Date Initiated: 11/17/17 Time Initiated: 18:35 Date resolved: 11/24/17 Assessment reference: NA Status: Active Priority: 2 Treatment assets and liabiliti Patient Assests: cooperative, negotiates basic needs Patient Liabilities: live alone, poor support system, dietary restrictions, medical problems - Milieu Protocol Maintain good personal hygiene: every shift Encourage regular showers, every shift Remind patient to perform daily oral care, every shift Assist patient to perform ADL's Maintain personal safety: every shift Educate patient to report safety concerns to staff, every shift Monitor environment for contraband/sharps Medication safety: Monitor for expected outcome, potential side effects: every shift, Assess barriers to learning: every shift, Assess readiness for medication education: every shift Milieu Narrative: Schizoaffective Disorder; Dementia -Individual and group therapy -Medicine consult -Continue Risperdal -Dietitian referral -Podiatry consult -PT -Disposition planning- patient does not have capacity to make medical decisions at this time; will start guardianship process Family Contact Family involvement: Famliy/SO not involved - Goals for Treatment Patient goals for treatment: "Get me coupons, help me better." Discharge/Continuing Care - Education Needs Education Needs: Patient Medication, Patient Diagnosis/Disease Process, Patient Coping Skills, Patient Placement options, Patient Community resources, Patient Activities of Daily Living, Patient Nutrition, Patient Personal Hygiene/Grooming, Patient Aftercare Safety Plan - Discharge Discharge Criteria: Tolerates medication w/o severe side effects, Ability to care for self, Reduction of target symptoms Discharge to:: Correction - Additional Comments 11/19/17 14:24 Pt seen and discussed in team meeting. Reason for admission reviewed and discussed. Pt reported he was referred to the ED by 2 police offers. Pt unable to provide reason and/or explanation for hospitalization. Pt stated "I was talking like always." Pt reported residing alone and has no social/emotional support system. Pt presents with disorganized thought process, hypervebral, word slad, and very difficult for team members to follow pt's thought process. Pt's social and medical issues reviewed. 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 Pt's medications reviewed. Pr's tx plan reviewed and discussed with plan. SW to continue to follow case. - Treatment Team Participation Patient/Family/SO Statement: Schizoaffective Disorder; Dementia -Individual and group therapy -Medicine consult -Continue Risperdal -Dietitian referral -Podiatry consult -PT -Disposition planning- patient does not have capacity to make medical decisions at this time; will start guardianship process Discussed with Family/SO: No Was Patient/Family/SO present at Treatment Team Meeting: Yes Treatment Plan Review Patient participation: Yes Family/SO/Caregiver participation: No Additional Comments: LATE ENTRY FROM 12/03/2017: Pt seen and discussed in team meeting. Pt's progress and bx on the unit reviewed. Pt reported feeling "pretty good." Pt reported eating and sleeping good. Pt is compliant with prescribed medications. Pt continues to demonstrate poor insight and judgment into his medical and psychiatric illness. Pt's medications reviewed and discussed. Tx plan reviewed; pt verbalized agreement. Pt continues to verbalize the need to pay for his monthly bills. Behavioral Health Therapist will assist pt in monthly bill payments. SW to continue to follow case. - Problem Problem 1 Time Initiated: 18:34 medication non adherence Date Initiated: 11/17/17 Time Initiated: 18:35 Progress toward outcomes: resolved Date resolved: 11/26/17 - Discharge / Continuing Care Discharge to:: Other (Pt is not a safe discharge back home due to lack of competency to care gor himself medically and physically. Pt is not agreeable to retirement placement. Attending physicians will initiate guardianship process. ) Behavioral Health Services: Other (Medication management) Health Needs: Follow up care/test, Doctor appointments, Special equipment, Nutritional, Medications/Rx, Educational, Recreational/Social
[2017-12-04] MEDS: GlipiZIDE 10 mg SR Tab PO SCH (09:02)
[2017-12-04] MEDS: Insulin Regular 100 units/ml SC SCH ×4 (09:03→21:06)
[2017-12-04] MEDS: Risperidone M TAB 2 MG PO SCH ×2 (16:23→21:06)
--- NOTE | 2017-12-05 05:06 | PN ---
DATE: 12/04/2017 SUBJECTIVE: The patient seen and examined. Interim events noted. Psychiatric followup and intervention noted and appreciated. The patient remains in geropsych unit, undergoing guardianship procedure as the patient competent. The patient feels okay. Denies any specific complaint. No chest pain. No shortness of breath. PHYSICAL EXAMINATION: GENERAL: The patient is in no acute distress. VITAL SIGNS: Stable. HEART: S1 and S2, normal and regular. LUNGS: Good bilateral air exchange. ABDOMEN: Soft and nontender. EXTREMITIES: No edema. No calf swelling. No tenderness. No acute ischemia. HARNESS FITTER: Exam is essentially unchanged. ASSESSMENT AND PLAN: The patient is not able to understand that he has diabetes. He does not understand that he needs to take medications. He noncompliance and complication of diabetes. This has been reiterated to the patient multiple times, but the patient still refuses to acknowledge having diabetes and does not understand the need to take medication and is not expected to take medication as outpatient and also has not been following up with doctors in the past and was not following with diet or medication as the patient does not have capacity to understand his disease and the complications of his disease. Plan as ordered. Guardianship is needed for the patient's well-being and medical management. Agustin Alvarez MD
--- NOTE | 2017-12-05 08:09 | PCM.PYCHPN ---
Psychiatric Progress Note - Psychiatric Progress Note Patient seen today, length of contact: Patient evaluated, case discussed w/ team, chart reviewed Patient Chief Complaint: "The police brought me here." Problems Identified/Issues Discussed: No new events overnight. Patient continues to have poor insight/judgment and significant memory deficits. Patient is unable to understand that he has acute medical issues and psychiatric issues. He does not understand why he needs medical or psychiatric treatment and does not believe he needs to take any medications. Patient does not have capacity to make medical decisions at this time; nor can he care for his basic needs. Medication Change: No Medical Record Reviewed: Yes Mental Status Examination - Cognitive Function Orientation: Person, Place, Situation Memory: Impaired Attention: Poor Concentration: Poor Association: Loose Fund of Knowledge: Poor Decription of patient's judgement and insights: Poor I/J - Mood Mood: Neutral - Affect Affect: Broad - Speech Speech: Pressured - Formal Thought Process Formal Thought Process: Loosening of associations, Flight of ideas, Circumstantial Psychotic Thoughts and Behaviors: Denies AH/VH - Suicidal Ideation Suicidal Ideation: No - Homicidal Ideation Homicidal Ideation: No Goal/Treatment Plan - Goal/Treatment Plan Need for Continued Stay: Severe functional impairment Progress Toward Problem(s) and Goals/Treatment Plan: Schizoaffective Disorder; Dementia -Individual and group therapy -Medicine consult -Continue Risperdal -Dietitian referral -Podiatry consult -PT -Disposition planning- patient does not have capacity to make medical decisions at this time; will start guardianship process Estimated Date of D/C: 01/09/18
[2017-12-05] MEDS: Insulin Regular 100 units/ml SC SCH ×4 (08:34→21:10)
[2017-12-05] MEDS: Levothyroxine 25 MCG TAB PO SCH (08:35)
[2017-12-05] MEDS: GlipiZIDE 10 mg SR Tab PO SCH (08:35)
[2017-12-05] MEDS: Risperidone M TAB 2 MG PO SCH ×2 (08:35→21:10)
--- NOTE | 2017-12-05 11:42 | PN ---
DATE: 12/05/2017 SUBJECTIVE: The patient seen and examined. Interim events noted. Psychiatry followup and intervention noted and appreciated. The patient remains in geropsych unit. complaint. PHYSICAL EXAMINATION: GENERAL: The patient is in no acute distress. VITAL SIGNS: Stable. Physical exam is essentially unchanged. DIAGNOSTIC DATA: Available diagnostic data reviewed. Accu-Cheks upon reading are acceptable, last reading of 476, it was taken by . ASSESSMENT AND PLAN: Overall, the patient is medically stable. Still remains indifferent to the diagnosis and refuses to accept.. Plan as ordered. Agustin Alvarez MD
[2017-12-06] MEDS: Levothyroxine 25 MCG TAB PO SCH (05:49)
--- NOTE | 2017-12-06 08:23 | PCM.PYCHPN ---
Psychiatric Progress Note - Psychiatric Progress Note Patient seen today, length of contact: Patient evaluated, case discussed w/ team, chart reviewed Patient Chief Complaint: "The police brought me here." Problems Identified/Issues Discussed: No new events. Patient continues to have poor insight/judgment and significant memory deficits. Patient is unable to understand that he has acute medical issues and psychiatric issues. He does not understand why he needs medical or psychiatric treatment and does not believe he needs to take any medications. Patient does not have capacity to make medical decisions at this time; nor can he care for his basic needs. Medication Change: No Medical Record Reviewed: Yes Consults ordered or reviewed: Medicine, Podiatry, PT Psychology consult PT is a 72 year old male admitted to [facility] and referred to the feature writer for evaluation. Only portions of the DRS could be administered due to patient's visual deficits. On tasks administered, pt scored in the Deficient Range on Attention, Conceptualization, Memory and Initation tasks. Pt was able to repeat four digits forward though 0 backward. On Initiation tasks he recalled only 12 items from a supermarket in 60 seconds. Pt was unable to copy any drawings due to visual issues. Pt's Abstraction skills were impaired. He was unable to communicate similarities between items. MEmory was impaired. Pt was unable to state the day, date, mayor, governor. He was unable to recall sentences following a five minute delay. Score 100> Deficits noted on evaluation Thank you for this referral Mental Status Examination - Cognitive Function Orientation: Person, Place, Situation Memory: Impaired Attention: Poor Concentration: Poor Association: Loose Fund of Knowledge: Poor Decription of patient's judgement and insights: Poor I/J - Mood Mood: Neutral - Affect Affect: Broad - Speech Speech: Pressured - Formal Thought Process Formal Thought Process: Loosening of associations, Flight of ideas, Circumstantial Psychotic Thoughts and Behaviors: Denies AH/VH - Suicidal Ideation Suicidal Ideation: No - Homicidal Ideation Homicidal Ideation: No Goal/Treatment Plan - Goal/Treatment Plan Need for Continued Stay: Severe functional impairment Progress Toward Problem(s) and Goals/Treatment Plan: Schizoaffective Disorder; Dementia -Individual and group therapy -Medicine consult -Continue Risperdal -Dietitian referral -Podiatry consult -PT -Disposition planning- patient does not have capacity to make medical decisions at this time; will start guardianship process Estimated Date of D/C: 01/09/18
[2017-12-06] MEDS: Insulin Regular 100 units/ml SC SCH ×4 (08:53→21:14)
[2017-12-06] MEDS: GlipiZIDE 10 mg SR Tab PO SCH (08:54)
[2017-12-06] MEDS: Risperidone M TAB 2 MG PO SCH ×2 (08:54→21:14)
[2017-12-07] MEDS: Levothyroxine 25 MCG TAB PO SCH (06:46)
--- NOTE | 2017-12-07 08:35 | PN ---
DATE: 12/06/2017 SUBJECTIVE: The patient seen and examined. Interim events noted. Consults noted appreciated. Psychiatry followup and intervention noted and appreciated. The patient remains in geropsych unit. The patient feels okay. Denies any specific complaint. No chest pain. No shortness of breath. Feeling different and complaining with diagnosis of his medical condition. Denies any chest pain. No shortness of breath. PHYSICAL EXAMINATION: GENERAL: The patient is in no acute distress. VITAL SIGNS: Stable. HEART: S1 and S2. Normal and regular. LUNGS: Good bilateral air exchange. ABDOMEN: Soft and nontender. EXTREMITIES: No edema. No calf swelling. No tenderness. No acute ischemia. CENTRAL NERVOUS SYSTEM: Exam is essentially unchanged. DIAGNOSTIC DATA: Available diagnostic data reviewed. Accu-cheks are acceptable. ASSESSMENT AND PLAN: Overall, the patient's general medical condition is stable. Plan as ordered. Agustin Alvarez MD
[2017-12-07] MEDS: Insulin Regular 100 units/ml SC SCH ×4 (08:42→22:00)
--- NOTE | 2017-12-07 08:43 | PCM.PYCHPN ---
Psychiatric Progress Note - Psychiatric Progress Note Patient seen today, length of contact: Patient evaluated, case discussed w/ team, chart reviewed Patient Chief Complaint: "The police brought me here." Problems Identified/Issues Discussed: No new events overnight. Patient continues to have poor insight/judgment and significant memory deficits. Patient is unable to understand that he has acute medical issues and psychiatric issues. He does not understand why he needs medical or psychiatric treatment and does not believe he needs to take any medications. Patient does not have capacity to make medical decisions at this time; nor can he care for his basic needs. Medication Change: No Medical Record Reviewed: Yes Consults ordered or reviewed: Medicine, Podiatry, PT Psychology consult PT is a 72 year old male admitted to [facility] and referred to the quality analyst/technical writer for evaluation. Only portions of the DRS could be administered due to patient's visual deficits. On tasks administered, pt scored in the Deficient Range on Attention, Conceptualization, Memory and Initation tasks. Pt was able to repeat four digits forward though 0 backward. On Initiation tasks he recalled only 12 items from a supermarket in 60 seconds. Pt was unable to copy any drawings due to visual issues. Pt's Abstraction skills were impaired. He was unable to communicate similarities between items. MEmory was impaired. Pt was unable to state the day, date, mayor, governor. He was unable to recall sentences following a five minute delay. Score 100> Deficits noted on evaluation Thank you for this referral Mental Status Examination - Cognitive Function Orientation: Person, Place, Situation Memory: Impaired Attention: Poor Concentration: Poor Association: Loose Fund of Knowledge: Poor Decription of patient's judgement and insights: Poor I/J - Mood Mood: Neutral - Affect Affect: Broad - Speech Speech: Appropriate - Formal Thought Process Formal Thought Process: Loosening of associations, Flight of ideas Psychotic Thoughts and Behaviors: Denies AH/VH - Suicidal Ideation Suicidal Ideation: No - Homicidal Ideation Homicidal Ideation: No Goal/Treatment Plan - Goal/Treatment Plan Need for Continued Stay: Severe functional impairment Progress Toward Problem(s) and Goals/Treatment Plan: Schizoaffective Disorder; Dementia -Individual and group therapy -Medicine consult -Continue Risperdal -Dietitian referral -Podiatry consult -PT -Disposition planning- patient does not have capacity to make medical decisions at this time; will start guardianship process Estimated Date of D/C: 01/09/18
[2017-12-07] MEDS: GlipiZIDE 10 mg SR Tab PO SCH (08:48)
[2017-12-07] MEDS: Risperidone M TAB 2 MG PO SCH ×2 (08:49→21:08)
--- NOTE | 2017-12-07 11:21 | PN ---
DATE: 12/07/2017 SUBJECTIVE: The patient seen and examined. Interim events noted. The patient remains in geropsych unit. Psychiatry followup and interventions noted and appreciated. The patient feels okay, ambulates, remain awake, responsive. Denies any specific complaint. No chest pain. No shortness of breath. PHYSICAL EXAMINATION: GENERAL: The patient is in no acute distress. VITAL SIGNS: Stable. Physical exam is essentially unchanged. DIAGNOSTIC DATA: Available diagnostic data reviewed. Accu-Cheks are acceptable. ASSESSMENT AND PLAN: The patient is medically stable. Plan as ordered. Agustin Alvarez MD
[2017-12-08] MEDS: Levothyroxine 25 MCG TAB PO SCH (05:55)
[2017-12-08] MEDS: GlipiZIDE 10 mg SR Tab PO SCH (08:03)
[2017-12-08] MEDS: Risperidone M TAB 2 MG PO SCH ×2 (08:04→21:03)
[2017-12-08] MEDS: Insulin Regular 100 units/ml SC SCH ×4 (08:04→21:04)
--- NOTE | 2017-12-08 10:19 | PCM.PYCHPN ---
Psychiatric Progress Note - Psychiatric Progress Note Patient seen today, length of contact: Patient evaluated, case discussed w/ team, chart reviewed Patient Chief Complaint: pt is less anxious and less agitated and is in good behavioral control.no side effects to meds. Medication Change: No Medical Record Reviewed: Yes Mental Status Examination - Cognitive Function Orientation: Person, Place, Situation Memory: Impaired Attention: Poor Concentration: Poor Association: Loose Fund of Knowledge: Poor - Mood Mood: Neutral - Affect Affect: Broad - Speech Speech: Appropriate - Formal Thought Process Formal Thought Process: Loosening of associations, Flight of ideas - Suicidal Ideation Suicidal Ideation: No - Homicidal Ideation Homicidal Ideation: No Goal/Treatment Plan - Goal/Treatment Plan Need for Continued Stay: Severe functional impairment Progress Toward Problem(s) and Goals/Treatment Plan: jessica continue to titrate meds and engage pt in therapy . pt waiting for guardianship. Estimated Date of D/C: 01/09/18
[2017-12-09] MEDS: Levothyroxine 25 MCG TAB PO SCH (06:08)
[2017-12-09] MEDS: GlipiZIDE 10 mg SR Tab PO SCH (08:16)
[2017-12-09] MEDS: Insulin Regular 100 units/ml SC SCH ×3 (08:16→21:30)
[2017-12-09] MEDS: Risperidone M TAB 2 MG PO SCH ×2 (08:17→21:15)
--- NOTE | 2017-12-09 11:38 | PN ---
DATE: 12/09/2017 SUBJECTIVE: The patient .seen and examined. Interim events noted and followup intervention noted and appreciated. The patient remains in sinus tachycardia. The patient is awake, responsive, and ambulatory. Denies any specific complaints. No specific issue reported on this exam . PHYSICAL EXAMINATION: GENERAL: The patient is in no acute distress. VITAL SIGNS: Stable. Physical exam is essentially unchanged. DIAGNOSTIC DATA: Available diagnostic data reviewed. ASSESSMENT AND PLAN: Overall, the patient's general medical condition is stable. Plan as ordered. Agustin Alvarez MD
--- NOTE | 2017-12-09 13:06 | CP.PCM.PN ---
Subjective - Date & Time of Evaluation Date of Evaluation: 12/09/17 Time of Evaluation: 13:05 - Subjective Subjective: Podiatry progress note for Dr. Diaz 72 years old male patient was seen and evaluated in psych for hyperkeratotic lesions to bilateral feet. Patient denies of any pain to bilateral LE. Patient appears in NAD. Patient denies of any acute overnight events. Denies of any recent F/N/V/C/SOB/CP/headache. No other pedal complains. Patients dressing is intact, however soaked with urine. Pt is seen to be wearing surgical shoe. Objective - Vital Signs/Intake and Output Vital Signs (last 24 hours): Temp Pulse Resp BP Pulse Ox 97.2 F L 100 H 20 105/67 18 L 12/09/17 06:00 12/09/17 06:00 12/09/17 06:00 12/09/17 06:00 11/24/17 16:38 - Medications Medications: Current Medications Acetaminophen (Tylenol 325mg Tab) 650 mg PO Q4 PRN PRN Reason: Pain, moderate (4-7) Al Hydrox/Mg Hydrox/Simethicone (Maalox Plus 30 Ml) 30 ml PO Q4 PRN PRN Reason: Dyspepsia Aspirin (Aspirin Chewable) 81 mg PO DAILY [facility] Last Admin: 12/09/17 08:16 Dose: 81 mg Bismuth Subsalicylate (Pepto-Bismol) 524 mg PO Q4 PRN PRN Reason: Diarrhea Diphenhydramine HCl (Benadryl) 50 mg IM Q6 PRN PRN Reason: Other Diphenhydramine HCl (Benadryl) 50 mg PO Q6 PRN PRN Reason: Other Glipizide (Glucotrol Xl) 10 mg PO K [facility] Last Admin: 12/09/17 08:16 Dose: 10 mg Haloperidol (Haldol) 2 mg PO Q6 PRN PRN Reason: Agitation Haloperidol Lactate (Haldol) 2 mg IM Q6 PRN PRN Reason: Agitation Insulin Human Regular (Humulin R) 0 units SC [facility]; Protocol Last Admin: 12/09/17 08:16 Dose: Not Given Levothyroxine Sodium (Synthroid) 25 mcg PO DAILY@0630 [facility] Last Admin: 12/09/17 06:08 Dose: 25 mcg Lorazepam (Ativan) 0.5 mg PO HS PRN PRN Reason: Insomnia Last Admin: 12/08/17 23:51 Dose: 0.5 mg Lorazepam (Ativan) 0.5 mg PO Q6 PRN PRN Reason: Anxiety Magnesium Hydroxide (Milk Of Magnesia) 30 ml PO HS PRN PRN Reason: Constipation Risperidone (Risperdal M-Tab) 2 mg PO Q12 [facility] Last Admin: 12/09/17 08:17 Dose: 2 mg Sitagliptin Phosphate (Januvia) 100 mg PO DAILY [facility] Last Admin: 12/09/17 08:17 Dose: 100 mg - Labs Labs: 11/18/17 06:52 11/18/17 06:52 - Constitutional Appears: Well, Non-toxic, No Acute Distress - Head Exam Head Exam: ATRAUMATIC, NORMOCEPHALIC - Extremities Exam Additional comments: LE focused exam: VASC: DP/PT pulses are faintly palpable. Cap refill time: < 3 seconds to all digits. Skin temperature warm to cool from proximal to distal. no pitting or non-pitting edema noted NEURO: Gross and protective sensations are intact DERM: Hyperkeratotic lesions with thick epidermal layer noted on the plantar aspect of the metatarsal head 1 and 5 - underlying wounds suspected, no inter digital maceration, no lesions present and no clinical suspicion of active infec tion. Macerated skin noted on the forefoot and rearfoot secondary to the dressing being soaked in urine. The hyperkeratotic lesions appears softer than last time he was seem MSK: Pes cavus, no pain during AROM and PROM at the AJ or MTPJ, no pain on palpation of the hyperkeratotic lesions - Neurological Exam Neurological Exam: Alert, Awake, Oriented x3 - Psychiatric Exam Psychiatric exam: Normal Affect - Skin Skin Exam: Normal Color Assessment and Plan - Assessment and Plan (Free Text) Assessment: 72 year old male patient seen and evaluated for Hyperkeratotic lesions with suspected wounds secondary to pressure Plan: Patient seen and evaluated at the bed side Discussed plan with attending Dr. Diaz Left foot dressed using hydrogel and DSD soften the hyperkeratotic lesions No plan for debridement of hyperkeratotic lesions as they appear stable with no pain, bleeding, drainage, or signs of infection Patient instructed not to remove the dressings and to use the surgical shoe whenever he is ambulating. Patient expressed verbal understanding. Podiatry to continue to follow up the patient while in-house.
--- NOTE | 2017-12-09 15:02 | PCM.PYCHPN ---
Psychiatric Progress Note - Psychiatric Progress Note Patient seen today, length of contact: Patient evaluated, case discussed w/ team, chart reviewed Patient Chief Complaint: pt has remained with significant cognitive deficiits and has poor insight and poor judgement about his psychiatric and medical issues and need further stabilization.pt is less anxious and less agitated and is in good behavioral control.no side effects to meds. Medication Change: No Medical Record Reviewed: Yes Mental Status Examination - Cognitive Function Orientation: Person, Place, Situation Memory: Impaired Attention: Poor Concentration: Poor Association: Loose Fund of Knowledge: Poor - Mood Mood: Neutral - Affect Affect: Broad - Speech Speech: Appropriate - Formal Thought Process Formal Thought Process: Loosening of associations, Flight of ideas - Suicidal Ideation Suicidal Ideation: No - Homicidal Ideation Homicidal Ideation: No Goal/Treatment Plan - Goal/Treatment Plan Need for Continued Stay: Severe functional impairment Progress Toward Problem(s) and Goals/Treatment Plan: jessica continue to titrate meds and engage pt in therapy . pt waiting for guardianship. Estimated Date of D/C: 01/09/18
[2017-12-10] MEDS: Levothyroxine 25 MCG TAB PO SCH (05:45)
--- NOTE | 2017-12-10 08:37 | PCM.PYCHPN ---
Psychiatric Progress Note - Psychiatric Progress Note Patient seen today, length of contact: Patient evaluated, case discussed w/ team, chart reviewed Patient Chief Complaint: "The police brought me here." Problems Identified/Issues Discussed: No new events over the weekend. Patient continues to have poor insight/judgment and significant memory deficits. Patient is unable to understand that he has acute medical issues and psychiatric issues. He does not understand why he needs medical or psychiatric treatment and does not believe he needs to take any medications. Patient does not have capacity to make medical decisions at this time; nor can he care for his basic needs. Medication Change: No Medical Record Reviewed: Yes Consults ordered or reviewed: Medicine, Podiatry, PT Psychology consult PT is a 72 year old male admitted to [facility] and referred to the telegraphic typewriter operator chief for evaluation. Only portions of the DRS could be administered due to patient's visual deficits. On tasks administered, pt scored in the Deficient Range on Attention, Conceptualization, Memory and Initation tasks. Pt was able to repeat four digits forward though 0 backward. On Initiation tasks he recalled only 12 items from a supermarket in 60 seconds. Pt was unable to copy any drawings due to visual issues. Pt's Abstraction skills were impaired. He was unable to communicate similarities between items. MEmory was impaired. Pt was unable to state the day, date, mayor, governor. He was unable to recall sentences following a five minute delay. Score 100> Deficits noted on evaluation Thank you for this referral Mental Status Examination - Cognitive Function Orientation: Person, Place, Situation Memory: Impaired Attention: Poor Concentration: Poor Association: Loose Fund of Knowledge: Poor Decription of patient's judgement and insights: Chronic poor I/J - Mood Mood: Neutral - Affect Affect: Broad - Speech Speech: Appropriate - Formal Thought Process Formal Thought Process: Loosening of associations, Flight of ideas Psychotic Thoughts and Behaviors: Denies acute AH/VH - Suicidal Ideation Suicidal Ideation: No - Homicidal Ideation Homicidal Ideation: No Goal/Treatment Plan - Goal/Treatment Plan Need for Continued Stay: Severe functional impairment Progress Toward Problem(s) and Goals/Treatment Plan: Schizoaffective Disorder; Dementia -Individual and group therapy -Medicine consult -Continue Risperdal -Dietitian referral -Podiatry consult -PT -Disposition planning- patient does not have capacity to make medical decisions at this time; will start guardianship process Estimated Date of D/C: 01/09/18
[2017-12-10] MEDS: GlipiZIDE 10 mg SR Tab PO SCH (08:52)
[2017-12-10] MEDS: Insulin Regular 100 units/ml SC SCH ×4 (08:52→22:00)
[2017-12-10] MEDS: Risperidone M TAB 2 MG PO SCH ×2 (08:53→21:01)
--- NOTE | 2017-12-10 09:01 | PN ---
DATE: 12/08/2017 SUBJECTIVE: The patient seen and examined. Interim events noted. Psychiatry followup and intervention noted and appreciated. The patient remains in geropsych unit. The patient feels okay. Denies any complaint of chest pain or shortness of breath. PHYSICAL EXAMINATION: GENERAL: The patient is in no acute distress. VITAL SIGNS: Stable. Physical exam is essentially unchanged. DIAGNOSTIC DATA: Available diagnostic data reviewed. Accu-Cheks are acceptable. ASSESSMENT AND PLAN: Overall, the patient is medically stable. Plan as ordered. Agustin Alvarez MD
--- NOTE | 2017-12-10 12:48 | PN ---
DATE: 12/10/2017 SUBJECTIVE: The patient seen and examined. Interim events noted. Psychiatry followup and intervention noted and appreciated. Case discussed with psychiatrist. The patient is pending guardianship. The patient is awake, responsive. Feels okay. Denies any specific complaint. No chest pain. No shortness of breath. PHYSICAL EXAMINATION: GENERAL: The patient is in no acute distress. VITAL SIGNS: Stable. Physical exam is essentially unchanged. DIAGNOSTIC DATA: Available diagnostic data reviewed. Accu-Cheks are acceptable. ASSESSMENT AND PLAN: Overall, the patient's general medical condition is stable and same. Plan as ordered. Agustin Alvarez MD
--- NOTE | 2017-12-10 15:22 | PCM.BM ---
Treatment Plan Problems - Problems identified on initial assessmt Problem 1 Date Initiated: 11/17/17 Time Initiated: 18:34 Date resolved: 11/24/17 Assessment reference: NA Status: Active Priority: 1 medication non adherence Date Initiated: 11/17/17 Time Initiated: 18:35 Date resolved: 11/24/17 Assessment reference: NA Status: Active Priority: 2 Treatment assets and liabiliti Patient Assests: cooperative, negotiates basic needs Patient Liabilities: live alone, poor support system, dietary restrictions, medical problems - Milieu Protocol Maintain good personal hygiene: every shift Encourage regular showers, every shift Remind patient to perform daily oral care, every shift Assist patient to perform ADL's Maintain personal safety: every shift Educate patient to report safety concerns to staff, every shift Monitor environment for contraband/sharps Medication safety: Monitor for expected outcome, potential side effects: every shift, Assess barriers to learning: every shift, Assess readiness for medication education: every shift Milieu Narrative: Schizoaffective Disorder; Dementia -Individual and group therapy -Medicine consult -Continue Risperdal -Dietitian referral -Podiatry consult -PT -Disposition planning- patient does not have capacity to make medical decisions at this time; will start guardianship process Family Contact Family involvement: Famliy/SO not involved - Goals for Treatment Patient goals for treatment: "Get me coupons, help me better." Discharge/Continuing Care - Education Needs Education Needs: Patient Medication, Patient Diagnosis/Disease Process, Patient Coping Skills, Patient Placement options, Patient Community resources, Patient Activities of Daily Living, Patient Nutrition, Patient Personal Hygiene/Grooming, Patient Aftercare Safety Plan - Discharge Discharge Criteria: Tolerates medication w/o severe side effects, Ability to care for self, Reduction of target symptoms Discharge to:: Other (Pt is not a safe discharge back home due to lack of competency to care gor himself medically and physically. Pt is not agreeable to care home placement. Attending physicians will initiate guardianship process. ) - Additional Comments 11/19/17 14:24 Pt seen and discussed in team meeting. Reason for admission reviewed and discussed. Pt reported he was referred to the ED by 2 police offers. Pt unable to provide reason and/or explanation for hospitalization. Pt stated "I was talking like always." Pt reported residing alone and has no social/emotional support system. Pt presents with disorganized thought process, hypervebral, word slad, and very difficult for team members to follow pt's thought process. Pt's social and medical issues reviewed. 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 Pt's medications reviewed. Pr's tx plan reviewed and discussed with plan. SW to continue to follow case. - Treatment Team Participation Patient/Family/SO Statement: Schizoaffective Disorder; Dementia -Individual and group therapy -Medicine consult -Continue Risperdal -Dietitian referral -Podiatry consult -PT -Disposition planning- patient does not have capacity to make medical decisions at this time; will start guardianship process Discussed with Family/SO: No Was Patient/Family/SO present at Treatment Team Meeting: Yes Treatment Plan Review Patient participation: Yes Family/SO/Caregiver participation: No Additional Comments: Pt seen and discussed in team meeting. Pt's progress and bx on the unit reviewed. Pt reported feeling "alright." Pt reported "good" sleep pattern. Pt reported having a "good" appetite. Pt reported that he does not need psychiatric medications. Psycho-education provided regarding illness and medications. Pt is pending guardianship. Pt continues to present with poor insight and judgment into illness and required medications. Tx plan reviewed and discussed. Pt's medications reviewed. SW to continue to follow case. - Problem Problem 1 Time Initiated: 18:34 medication non adherence Date Initiated: 11/17/17 Time Initiated: 18:35 Progress toward outcomes: resolved Date resolved: 11/26/17 - Discharge / Continuing Care Discharge to:: Home, Other (Pt pending guardianship. Pt presents with poor insight and judgment into his medical and psychiatric illness. ) Behavioral Health Services: Other (Medication management) Health Needs: Follow up care/test, Doctor appointments, Nutritional, Medications/Rx, Educational, Recreational/Social
[2017-12-11] MEDS: Levothyroxine 25 MCG TAB PO SCH (05:31)
--- NOTE | 2017-12-11 06:39 | CP.PCM.PN ---
Subjective - Date & Time of Evaluation Date of Evaluation: 12/11/17 Time of Evaluation: 08:53 - Subjective Subjective: Podiatry progress note for Dr. Diaz 72 years old male patient was seen and evaluated in psych for hyperkeratotic lesions to bilateral feet. Patient appears in NAD. Patient was wearing surgical shoe at the visit time. Patients dressing is intact, however soaked with urine. Patient denies of any pain to bilateral LE. Patient denies of any acute overnight events. Patient denies of any recent F/N/V/C or SOB. Patient denies any other pedal complaint at this time. Objective - Vital Signs/Intake and Output Vital Signs (last 24 hours): Temp Pulse Resp BP Pulse Ox 97.7 F 100 H 18 103/66 18 L 12/11/17 05:41 12/11/17 05:41 12/11/17 05:41 12/11/17 05:41 11/24/17 16:38 - Medications Medications: Current Medications Acetaminophen (Tylenol 325mg Tab) 650 mg PO Q4 PRN PRN Reason: Pain, moderate (4-7) Al Hydrox/Mg Hydrox/Simethicone (Maalox Plus 30 Ml) 30 ml PO Q4 PRN PRN Reason: Dyspepsia Aspirin (Aspirin Chewable) 81 mg PO DAILY [facility] Last Admin: 12/10/17 08:52 Dose: 81 mg Bismuth Subsalicylate (Pepto-Bismol) 524 mg PO Q4 PRN PRN Reason: Diarrhea Diphenhydramine HCl (Benadryl) 50 mg IM Q6 PRN PRN Reason: Other Diphenhydramine HCl (Benadryl) 50 mg PO Q6 PRN PRN Reason: Other Last Admin: 12/09/17 21:18 Dose: 50 mg Glipizide (Glucotrol Xl) 10 mg PO K [facility] Last Admin: 12/10/17 08:52 Dose: 10 mg Haloperidol (Haldol) 2 mg PO Q6 PRN PRN Reason: Agitation Haloperidol Lactate (Haldol) 2 mg IM Q6 PRN PRN Reason: Agitation Insulin Human Regular (Humulin R) 0 units SC [facility]; Protocol Last Admin: 12/10/17 22:00 Dose: Not Given Levothyroxine Sodium (Synthroid) 25 mcg PO DAILY@0630 [facility] Last Admin: 12/11/17 05:31 Dose: 25 mcg Lorazepam (Ativan) 0.5 mg PO HS PRN PRN Reason: Insomnia Last Admin: 12/11/17 00:36 Dose: 0.5 mg Lorazepam (Ativan) 0.5 mg PO Q6 PRN PRN Reason: Anxiety Magnesium Hydroxide (Milk Of Magnesia) 30 ml PO HS PRN PRN Reason: Constipation Risperidone (Risperdal M-Tab) 2 mg PO Q12 [facility] Last Admin: 12/10/17 21:01 Dose: 2 mg Sitagliptin Phosphate (Januvia) 100 mg PO DAILY [facility] Last Admin: 12/10/17 08:53 Dose: 100 mg - Labs Labs: 11/18/17 06:52 11/18/17 06:52 - Constitutional Appears: Well, Non-toxic, No Acute Distress - Head Exam Head Exam: ATRAUMATIC, NORMOCEPHALIC - Extremities Exam Additional comments: Right LE focused exam: Vasc: DP/PT pulses are faintly palpable. Cap refill time: < 3 seconds to all digits. Skin temperature warm to cool from proximal to distal. no pitting or non-pitting edema noted Neuro: Gross and protective sensations are intact. Derm: Soft hyperkeratotic lesions noted on the plantar aspect of the metatarsal head 1 and 5 - underlying wounds suspected, no inter digital maceration, no apparent lesions present and no clinical signs of active infection. Skin is macerated on the forefoot and rearfoot secondary to the urine soaking the dressing. MSK: Pes cavus, no pain during Active ROM and Passive ROM at the Ankle Joint or MTPJ, No pain on palpation of the hyperkeratotic lesions - Neurological Exam Neurological Exam: Alert, Awake, Oriented x3 Assessment and Plan - Assessment and Plan (Free Text) Assessment: 72 year old male patient seen and evaluated for Hyperkeratotic lesions with suspected underlying pressure ulcers. Plan: Patient seen and evaluated at the bed side Discussed plan with attending Dr. Diaz Chart labs and vitals reviewed; Afebrile, No leukocytosis Left foot dressed using betadine and DSD for the macerated and soft hyperker atotic lesions No plan for debridement of hyperkeratotic lesions as they appear stable with no pain, bleeding, drainage, or signs of infection Patient instructed not to remove the dressings and to use the surgical shoe whenever he is ambulating. Patient expressed verbal understanding. Patient is stable from the podiatry standpoint. Podiatry to continue to follow up the patient while in-house.
[2017-12-11] MEDS: Risperidone M TAB 2 MG PO SCH ×2 (08:26→21:07)
[2017-12-11] MEDS: GlipiZIDE 10 mg SR Tab PO SCH (08:26)
[2017-12-11] MEDS: Insulin Regular 100 units/ml SC SCH ×4 (08:26→21:07)
--- NOTE | 2017-12-11 11:27 | PN ---
DATE: 12/11/2017 SUBJECTIVE: The patient seen and examined. Interm events noted. The patient remains in geropsych unit. Psychiatry followup and intervention noted and appreciated. The patient is awaiting guardianship. The patient feels okay. Denies any medical complaints. No specific medial issue reported by nursing staff. PHYSICAL EXAMINATION: GENERAL: The patient is in no acute distress. VITAL SIGNS: Stable. Physical exam is essentially unchanged. DIAGNOSTIC DATA: Available diagnostic data reviewed. ASSESSMENT AND PLAN: Overall, the patient's general medical condition is stable. Plan as ordered. Agustin Alvarez MD
[2017-12-12] MEDS: Levothyroxine 25 MCG TAB PO SCH (06:12)
[2017-12-12] MEDS: Risperidone M TAB 2 MG PO SCH ×2 (08:23→21:02)
[2017-12-12] MEDS: Insulin Regular 100 units/ml SC SCH ×4 (08:24→22:00)
[2017-12-12] MEDS: GlipiZIDE 10 mg SR Tab PO SCH (08:24)
--- NOTE | 2017-12-12 08:54 | CP.PCM.PN ---
Subjective - Date & Time of Evaluation Date of Evaluation: 12/12/17 Time of Evaluation: 08:51 - Subjective Subjective: Podiatry progress note for Dr. Diaz 72 years old male patient was seen and evaluated in psych unit for hyperkeratotic lesions to bilateral feet. Patient appears in NAD. Patient was wearing surgical shoe at the visit time. Patients dressing is intact and dry. Patient denies of any pain to bilateral LE. Patient denies of any acute ov ernight events. Patient denies of any overnight F/N/V/C or SOB. Patient denies any other pedal complaint at this time. Objective - Vital Signs/Intake and Output Vital Signs (last 24 hours): Temp Pulse Resp BP Pulse Ox 97.6 F 51 L 18 131/72 18 L 12/12/17 05:34 12/12/17 05:34 12/12/17 05:34 12/12/17 05:34 11/24/17 16:38 - Medications Medications: Current Medications Acetaminophen (Tylenol 325mg Tab) 650 mg PO Q4 PRN PRN Reason: Pain, moderate (4-7) Al Hydrox/Mg Hydrox/Simethicone (Maalox Plus 30 Ml) 30 ml PO Q4 PRN PRN Reason: Dyspepsia Aspirin (Aspirin Chewable) 81 mg PO DAILY [facility] Last Admin: 12/12/17 08:23 Dose: 81 mg Bismuth Subsalicylate (Pepto-Bismol) 524 mg PO Q4 PRN PRN Reason: Diarrhea Diphenhydramine HCl (Benadryl) 50 mg IM Q6 PRN PRN Reason: Other Diphenhydramine HCl (Benadryl) 50 mg PO Q6 PRN PRN Reason: Other Last Admin: 12/09/17 21:18 Dose: 50 mg Glipizide (Glucotrol Xl) 10 mg PO K [facility] Last Admin: 12/12/17 08:24 Dose: 10 mg Haloperidol (Haldol) 2 mg PO Q6 PRN PRN Reason: Agitation Haloperidol Lactate (Haldol) 2 mg IM Q6 PRN PRN Reason: Agitation Insulin Human Regular (Humulin R) 0 units SC [facility]; Protocol Last Admin: 12/12/17 08:24 Dose: Not Given Levothyroxine Sodium (Synthroid) 25 mcg PO DAILY@0630 [facility] Last Admin: 12/12/17 06:12 Dose: 25 mcg Lorazepam (Ativan) 0.5 mg PO HS PRN PRN Reason: Insomnia Last Admin: 12/11/17 00:36 Dose: 0.5 mg Lorazepam (Ativan) 0.5 mg PO Q6 PRN PRN Reason: Anxiety Magnesium Hydroxide (Milk Of Magnesia) 30 ml PO HS PRN PRN Reason: Constipation Risperidone (Risperdal M-Tab) 2 mg PO Q12 [facility] Last Admin: 12/12/17 08:23 Dose: 2 mg Sitagliptin Phosphate (Januvia) 100 mg PO DAILY [facility] Last Admin: 12/12/17 08:23 Dose: 100 mg - Labs Labs: 11/18/17 06:52 11/18/17 06:52 - Constitutional Appears: Well, Non-toxic, No Acute Distress - Head Exam Head Exam: ATRAUMATIC, NORMOCEPHALIC - Extremities Exam Additional comments: Right LE focused exam: Vasc: DP/PT pulses are faintly palpable. Cap refill time: < 3 seconds to all digits. Skin temperature warm to cool from proximal to distal. no pitting or non-pitting edema noted Neuro: Gross and protective sensations are intact. Derm: Hyperkeratotic lesions noted on the plantar aspect of the metatarsal head 1 and 5. No inter digital maceration, no apparent lesions present and no clinical signs of active infection. MSK: Pes cavus, no pain during Active ROM and Passive ROM at the Ankle Joint or MTPJ, No pain on palpation of the hyperkeratotic lesions - Neurological Exam Neurological Exam: Alert, Awake, Oriented x3 Assessment and Plan - Assessment and Plan (Free Text) Assessment: 72 year old male patient seen and evaluated for Hyperkeratotic lesions with suspected underlying pressure ulcers. Plan: Patient seen and evaluated at the bed side Discussed plan with attending Dr. Diaz Chart labs and vitals reviewed; Afebrile, No leukocytosis Left foot dressed using betadine and DSD for the hyperkeratotic lesions No plan for debridement of hyperkeratotic lesions as they appear stable with no pain, bleeding, drainage, or signs of infection Patient instructed not to remove the dressings and to use the surgical shoe whenever he is ambulating. Patient expressed verbal understanding. Patient is stable from the podiatry standpoint. Podiatry to continue to follow up the patient while in-house.
--- NOTE | 2017-12-12 09:09 | PCM.PYCHPN ---
Psychiatric Progress Note - Psychiatric Progress Note Patient seen today, length of contact: Patient evaluated, case discussed w/ team, chart reviewed Patient Chief Complaint: "The police brought me here." Problems Identified/Issues Discussed: No new events overnight. Patient continues to have poor insight/judgment and significant memory deficits. Patient is unable to understand that he has acute medical issues and psychiatric issues. He does not understand why he needs medical or psychiatric treatment and does not believe he needs to take any medications. Patient does not have capacity to make medical decisions at this time; nor can he care for his basic needs. Medication Change: No Medical Record Reviewed: Yes Consults ordered or reviewed: Medicine, Podiatry, PT Psychology consult PT is a 72 year old male admitted to [facility] and referred to the screenplay writer for evaluation. Only portions of the DRS could be administered due to patient's visual deficits. On tasks administered, pt scored in the Deficient Range on Attention, Conceptualization, Memory and Initation tasks. Pt was able to repeat four digits forward though 0 backward. On Initiation tasks he recalled only 12 items from a supermarket in 60 seconds. Pt was unable to copy any drawings due to visual issues. Pt's Abstraction skills were impaired. He was unable to communicate similarities between items. MEmory was impaired. Pt was unable to state the day, date, mayor, governor. He was unable to recall sentences following a five minute delay. Score 100> Deficits noted on evaluation Thank you for this referral Mental Status Examination - Cognitive Function Orientation: Person, Place, Situation Memory: Impaired Attention: Poor Concentration: Poor Association: Loose Fund of Knowledge: Poor Decription of patient's judgement and insights: Chronic poor I/J - Mood Mood: Neutral - Affect Affect: Broad - Speech Speech: Appropriate - Formal Thought Process Formal Thought Process: Loosening of associations, Flight of ideas Psychotic Thoughts and Behaviors: Denies acute AH/VH - Suicidal Ideation Suicidal Ideation: No - Homicidal Ideation Homicidal Ideation: No Goal/Treatment Plan - Goal/Treatment Plan Need for Continued Stay: Severe functional impairment Progress Toward Problem(s) and Goals/Treatment Plan: Schizoaffective Disorder; Dementia -Individual and group therapy -Medicine consult -Continue Risperdal -Dietitian referral -Podiatry consult -PT -Disposition planning- patient does not have capacity to make medical decisions at this time; will start guardianship process Estimated Date of D/C: 02/08/18
[2017-12-13] MEDS: Levothyroxine 25 MCG TAB PO SCH (05:33)
--- NOTE | 2017-12-13 08:08 | PCM.PYCHPN ---
Psychiatric Progress Note - Psychiatric Progress Note Patient seen today, length of contact: Patient evaluated, case discussed w/ team, chart reviewed Patient Chief Complaint: "The police brought me here." Problems Identified/Issues Discussed: No new events. Patient continues to have poor insight/judgment and significant memory deficits. Patient is unable to understand that he has acute medical issues and psychiatric issues. He does not understand why he needs medical or psychiatric treatment and does not believe he needs to take any medications. Patient does not have capacity to make medical decisions at this time; nor can he care for his basic needs. Medication Change: No Medical Record Reviewed: Yes Consults ordered or reviewed: Medicine, Podiatry, PT Psychology consult PT is a 72 year old male admitted to [facility] and referred to the teletypewriter installer for evaluation. Only portions of the DRS could be administered due to patient's visual deficits. On tasks administered, pt scored in the Deficient Range on Attention, Conceptualization, Memory and Initation tasks. Pt was able to repeat four digits forward though 0 backward. On Initiation tasks he recalled only 12 items from a supermarket in 60 seconds. Pt was unable to copy any drawings due to visual issues. Pt's Abstraction skills were impaired. He was unable to communicate similarities between items. MEmory was impaired. Pt was unable to state the day, date, mayor, governor. He was unable to recall sentences following a five minute delay. Score 100> Deficits noted on evaluation Thank you for this referral Mental Status Examination - Cognitive Function Orientation: Person, Place, Situation Memory: Impaired Attention: Poor Concentration: Poor Association: Loose Fund of Knowledge: Poor Decription of patient's judgement and insights: Chronic poor I/J - Mood Mood: Neutral - Affect Affect: Broad - Speech Speech: Appropriate - Formal Thought Process Formal Thought Process: Loosening of associations, Flight of ideas Psychotic Thoughts and Behaviors: Denies acute AH/VH - Suicidal Ideation Suicidal Ideation: No - Homicidal Ideation Homicidal Ideation: No Goal/Treatment Plan - Goal/Treatment Plan Need for Continued Stay: Severe functional impairment Progress Toward Problem(s) and Goals/Treatment Plan: Schizoaffective Disorder; Dementia -Individual and group therapy -Medicine consult -Continue Risperdal -Dietitian referral -Podiatry consult -PT -Disposition planning- patient does not have capacity to make medical decisions at this time; will start guardianship process Estimated Date of D/C: 02/08/18
[2017-12-13] MEDS: Risperidone M TAB 2 MG PO SCH ×2 (08:22→21:10)
[2017-12-13] MEDS: GlipiZIDE 10 mg SR Tab PO SCH (08:22)
[2017-12-13] MEDS: Insulin Regular 100 units/ml SC SCH ×4 (08:23→21:00)
--- NOTE | 2017-12-13 09:21 | PN ---
DATE: 12/12/2017 SUBJECTIVE: The patient seen and examined. Interim events noted. The patient remains in geropsych unit. Psychiatry followup and intervention noted and appreciated. Accu-Cheks reviewed. The patient feels okay. No specific complaint. No chest pain. No shortness of breath. PHYSICAL EXAMINATION: GENERAL: The patient is in no acute distress. VITAL SIGNS: Stable. HEART: S1 and S2, normal and regular. LUNGS: Good bilateral air exchange. ABDOMEN: Soft and nontender. EXTREMITIES: The patient is status post . No edema. No calf swelling. No tenderness. No acute ischemia. SEVERITY OF ILLNESS COORDINATOR: Exam is essentially unchanged. DIAGNOSTIC DATA: Available diagnostic data reviewed. ASSESSMENT AND PLAN: Overall, the patient's general medical condition is stable. Plan as ordered. Agustin Alvarez MD
[2017-12-14] MEDS: Levothyroxine 25 MCG TAB PO SCH (06:13)
--- NOTE | 2017-12-14 08:28 | PCM.PYCHPN ---
Psychiatric Progress Note - Psychiatric Progress Note Patient seen today, length of contact: Patient evaluated, case discussed w/ team, chart reviewed Patient Chief Complaint: "The police brought me here." Problems Identified/Issues Discussed: No new events overnight. Patient continues to have poor insight/judgment and significant memory deficits. Patient is unable to understand that he has acute medical issues and psychiatric issues. He does not understand why he needs medical or psychiatric treatment and does not believe he needs to take any medications. Patient does not have capacity to make medical decisions at this time; nor can he care for his basic needs. Medication Change: No Medical Record Reviewed: Yes Consults ordered or reviewed: Medicine, Podiatry, PT Psychology consult PT is a 72 year old male admitted to [facility] and referred to the publicity writer for evaluation. Only portions of the DRS could be administered due to patient's visual deficits. On tasks administered, pt scored in the Deficient Range on Attention, Conceptualization, Memory and Initation tasks. Pt was able to repeat four digits forward though 0 backward. On Initiation tasks he recalled only 12 items from a supermarket in 60 seconds. Pt was unable to copy any drawings due to visual issues. Pt's Abstraction skills were impaired. He was unable to communicate similarities between items. MEmory was impaired. Pt was unable to state the day, date, mayor, governor. He was unable to recall sentences following a five minute delay. Score 100> Deficits noted on evaluation Thank you for this referral Mental Status Examination - Cognitive Function Orientation: Person, Place, Situation Memory: Impaired Attention: Poor Concentration: Poor Association: Loose Fund of Knowledge: Poor Decription of patient's judgement and insights: Chronic poor I/J - Mood Mood: Neutral - Affect Affect: Broad - Speech Speech: Appropriate - Formal Thought Process Formal Thought Process: Loosening of associations, Flight of ideas Psychotic Thoughts and Behaviors: Denies acute AH/VH - Suicidal Ideation Suicidal Ideation: No - Homicidal Ideation Homicidal Ideation: No Goal/Treatment Plan - Goal/Treatment Plan Need for Continued Stay: Severe functional impairment Progress Toward Problem(s) and Goals/Treatment Plan: Schizoaffective Disorder; Dementia -Individual and group therapy -Medicine consult -Continue Risperdal -Dietitian referral -Podiatry consult -PT -Disposition planning- patient does not have capacity to make medical decisions at this time; Guardianship process initiated Estimated Date of D/C: 02/08/18
[2017-12-14] MEDS: Risperidone M TAB 2 MG PO SCH ×2 (08:33→21:06)
[2017-12-14] MEDS: Insulin Regular 100 units/ml SC SCH ×4 (08:33→21:06)
[2017-12-14] MEDS: GlipiZIDE 10 mg SR Tab PO SCH (08:36)
--- NOTE | 2017-12-14 08:49 | CP.PCM.PN ---
Subjective - Date & Time of Evaluation Date of Evaluation: 12/14/17 Time of Evaluation: 08:47 - Subjective Subjective: Podiatry progress note for Dr. Diaz 72 years old male patient was seen and evaluated in psych for hyperkeratotic lesions to bilateral feet. Patient appears in NAD. Patient was wearing surgical shoe at the visit time. Patients dressing is intact, however soaked with urine. Patient denies of any pain to bilateral LE. Patient denies of any acute overnight events. Patient denies of any recent F/N/V/C or SOB. Patient denies any other pedal complaint at this time. Objective - Vital Signs/Intake and Output Vital Signs (last 24 hours): Temp Pulse Resp BP Pulse Ox 97.3 F L 99 H 19 141/88 18 L 12/14/17 06:00 12/14/17 06:00 12/14/17 06:00 12/14/17 06:00 11/24/17 16:38 - Medications Medications: Current Medications Acetaminophen (Tylenol 325mg Tab) 650 mg PO Q4 PRN PRN Reason: Pain, moderate (4-7) Al Hydrox/Mg Hydrox/Simethicone (Maalox Plus 30 Ml) 30 ml PO Q4 PRN PRN Reason: Dyspepsia Aspirin (Aspirin Chewable) 81 mg PO DAILY [facility] Last Admin: 12/14/17 08:31 Dose: 81 mg Bismuth Subsalicylate (Pepto-Bismol) 524 mg PO Q4 PRN PRN Reason: Diarrhea Diphenhydramine HCl (Benadryl) 50 mg IM Q6 PRN PRN Reason: Other Diphenhydramine HCl (Benadryl) 50 mg PO Q6 PRN PRN Reason: Other Last Admin: 12/09/17 21:18 Dose: 50 mg Glipizide (Glucotrol Xl) 10 mg PO K [facility] Last Admin: 12/14/17 08:36 Dose: 10 mg Haloperidol (Haldol) 2 mg PO Q6 PRN PRN Reason: Agitation Haloperidol Lactate (Haldol) 2 mg IM Q6 PRN PRN Reason: Agitation Insulin Human Regular (Humulin R) 0 units SC [facility]; Protocol Last Admin: 12/14/17 08:33 Dose: Not Given Levothyroxine Sodium (Synthroid) 25 mcg PO DAILY@0630 [facility] Last Admin: 12/14/17 06:13 Dose: 25 mcg Lorazepam (Ativan) 0.5 mg PO HS PRN PRN Reason: Insomnia Last Admin: 12/13/17 23:46 Dose: 0.5 mg Lorazepam (Ativan) 0.5 mg PO Q6 PRN PRN Reason: Anxiety Magnesium Hydroxide (Milk Of Magnesia) 30 ml PO HS PRN PRN Reason: Constipation Risperidone (Risperdal M-Tab) 2 mg PO Q12 [facility] Last Admin: 12/14/17 08:33 Dose: 2 mg Sitagliptin Phosphate (Januvia) 100 mg PO DAILY [facility] Last Admin: 12/14/17 08:33 Dose: 100 mg - Labs Labs: 11/18/17 06:52 11/18/17 06:52 - Constitutional Appears: Well, Non-toxic, No Acute Distress - Head Exam Head Exam: ATRAUMATIC, NORMOCEPHALIC - Extremities Exam Additional comments: Right LE focused exam: Vasc: DP/PT pulses are faintly palpable. Cap refill time: < 3 seconds to all digits. Skin temperature warm to cool from proximal to distal. no pitting or non-pitting edema noted Neuro: Gross and protective sensations are intact. Derm: Soft hyperkeratotic lesions noted on the plantar aspect of the metatarsal head 1 and 5 - underlying wounds suspected, no inter digital maceration, no apparent lesions present and no clinical signs of active infection. Skin is macerated on the forefoot and rearfoot secondary to the urine soaking the dressing. MSK: Pes cavus, no pain during Active ROM and Passive ROM at the Ankle Joint or MTPJ, No pain on palpation of the hyperkeratotic lesions - Neurological Exam Neurological Exam: Alert, Awake, Oriented x3 Assessment and Plan - Assessment and Plan (Free Text) Assessment: 72 year old male patient seen and evaluated for Hyperkeratotic lesions with suspected underlying pressure ulcers. Plan: Patient seen and evaluated at the bed side Discussed plan with attending Dr. Diaz Chart labs and vitals reviewed; Afebrile, No leukocytosis Left foot dressed using betadine and DSD for the macerated and soft hy perkeratotic lesions No plan for debridement of hyperkeratotic lesions as they appear stable with no pain, bleeding, drainage, or signs of infection Patient instructed not to remove the dressings and to use the surgical shoe whenever he is ambulating. Patient expressed verbal understanding. Patient is stable from the podiatry standpoint. Podiatry to continue to follow up the patient while in-house.
--- NOTE | 2017-12-14 08:50 | PN ---
D ATE: 12/13/2017 SUBJECTIVE: The patient is seen and examined. Interm events noted. Psychiatric followup and intervention noted and appreciated. The patient remains in geropsych unit. Feels okay. Denies any specific complaint. No specific issue reported by nursing staff. Further condition explained . PHYSICAL EXAMINATION: GENERAL: The patient is in no acute distress. VITAL SIGNS: Stable. Physical exam is essentially unchanged. DIAGNOSTIC DATA: Available diagnostic data reviewed. Accu-Cheks are acceptable. ASSESSMENT AND PLAN: Overall, the patient's general medical condition is stable. Plan as ordered. Agustin Alvarez MD
--- NOTE | 2017-12-14 12:36 | PN ---
DATE: 12/14/2017 SUBJECTIVE: The patient seen and examined. Interim events noted. Psychiatric followup and intervention noted and appreciated. The patient remains in Geropsych Unit. The patient feels okay. Denies any specific medical complaint. No specific issue reported by nursing staff. PHYSICAL EXAMINATION: GENERAL: The patient is in no acute distress. VITAL SIGNS: Stable. Physical exam is essentially unchanged. DIAGNOSTIC DATA: Available diagnostic data reviewed. ASSESSMENT AND PLAN: Overall, the patient is medically stable. Plan as ordered. The patient is awaiting guardianship. Agustin Alvarez MD
[2017-12-15] MEDS: Levothyroxine 25 MCG TAB PO SCH (06:26)
[2017-12-15] MEDS: Risperidone M TAB 2 MG PO SCH ×2 (08:01→21:34)
[2017-12-15] MEDS: GlipiZIDE 10 mg SR Tab PO SCH (08:01)
[2017-12-15] MEDS: Insulin Regular 100 units/ml SC SCH ×4 (08:02→21:46)
--- NOTE | 2017-12-15 09:13 | PN ---
DATE: 12/15/2017 MEDICAL FOLLOWUP PROGRESS NOTE SUBJECTIVE: The patient is seen and examined. Interim events noted. Psychiatry and behavioral therapist intervention noted and appreciated. The patient remains in geropsych unit. Denied any specific complaint. No specific issue reported by nursing staff. PHYSICAL EXAMINATION: GENERAL: The patient is in no acute distress. VITAL SIGNS: Stable. Physical exam is essentially unchanged. DIAGNOSTIC DATA: Available diagnostic data reviewed. Accu-Cheks are acceptable. ASSESSMENT AND PLAN: Overall, the patient's general medical condition is stable. Plan as ordered. Agustin Alvarez MD
--- NOTE | 2017-12-15 13:23 | CP.PCM.PN ---
Subjective - Date & Time of Evaluation Date of Evaluation: 12/15/17 Time of Evaluation: 13:16 - Subjective Subjective: Podiatry progress note for Dr. Diaz 72 years old male patient was seen and evaluated in psych for hyperkeratotic lesions to bilateral feet. Patient appears in NAD. Patient was wearing surgical shoe at the visit time. Patients dressing is intact, however soaked again with urine. Patient denies of any pain to hisl LE. Patient denies of any acute overnight events. Patient denies of any overnight F/N/V/C or SOB. Patient denies any other pedal complaint at this time. Objective - Vital Signs/Intake and Output Vital Signs (last 24 hours): Temp Pulse Resp BP Pulse Ox 97.6 F 90 18 115/74 18 L 12/15/17 05:07 12/15/17 05:07 12/15/17 05:07 12/15/17 05:07 11/24/17 16:38 - Medications Medications: Current Medications Acetaminophen (Tylenol 325mg Tab) 650 mg PO Q4 PRN PRN Reason: Pain, moderate (4-7) Al Hydrox/Mg Hydrox/Simethicone (Maalox Plus 30 Ml) 30 ml PO Q4 PRN PRN Reason: Dyspepsia Aspirin (Aspirin Chewable) 81 mg PO DAILY [facility] Last Admin: 12/15/17 08:00 Dose: 81 mg Bismuth Subsalicylate (Pepto-Bismol) 524 mg PO Q4 PRN PRN Reason: Diarrhea Diphenhydramine HCl (Benadryl) 50 mg IM Q6 PRN PRN Reason: Other Diphenhydramine HCl (Benadryl) 50 mg PO Q6 PRN PRN Reason: Other Last Admin: 12/09/17 21:18 Dose: 50 mg Diphenhydramine HCl (Benadryl) 50 mg PO HS PRN PRN Reason: Sleep Last Admin: 12/14/17 23:24 Dose: 50 mg Glipizide (Glucotrol Xl) 10 mg PO BRK [facility] Last Admin: 12/15/17 08:01 Dose: 10 mg Haloperidol (Haldol) 2 mg PO Q6 PRN PRN Reason: Agitation Haloperidol Lactate (Haldol) 2 mg IM Q6 PRN PRN Reason: Agitation Insulin Human Regular (Humulin R) 0 units SC [facility]; Protocol Last Admin: 12/15/17 13:04 Dose: 1 unit Levothyroxine Sodium (Synthroid) 25 mcg PO DAILY@0630 [facility] Last Admin: 12/15/17 06:26 Dose: 25 mcg Lorazepam (Ativan) 0.5 mg PO HS PRN PRN Reason: Insomnia Last Admin: 12/13/17 23:46 Dose: 0.5 mg Lorazepam (Ativan) 0.5 mg PO Q6 PRN PRN Reason: Anxiety Magnesium Hydroxide (Milk Of Magnesia) 30 ml PO HS PRN PRN Reason: Constipation Risperidone (Risperdal M-Tab) 2 mg PO Q12 [facility] Last Admin: 12/15/17 08:01 Dose: 2 mg Sitagliptin Phosphate (Januvia) 100 mg PO DAILY [facility] Last Admin: 12/15/17 08:01 Dose: 100 mg - Labs Labs: 11/18/17 06:52 11/18/17 06:52 - Constitutional Appears: Well, Non-toxic, No Acute Distress - Head Exam Head Exam: ATRAUMATIC, NORMOCEPHALIC - Extremities Exam Additional comments: Right LE focused exam: Vasc: DP/PT pulses are faintly palpable. Cap refill time: < 3 seconds to all digits. Skin temperature warm to cool from proximal to distal. no pitting or non-pitting edema noted Neuro: Gross and protective sensations are intact. Derm: Soft hyperkeratotic lesions noted on the plantar aspect of the metatarsal head 1 and 5 - underlying wounds suspected, no inter digital maceration, no apparent lesions present and no clinical signs of active infection. Skin is macerated on the forefoot and rearfoot secondary to the urine soaking the dressing. after debriding the callous submet 5 a small ulcer 0.3X0.3X0.1 cm. no drainage. no malodor. No erythema. No probing to bone. No tracking o undermining. Base is granular 100%. Another tiny wound submet 1 which is covered by a scab. no drainage or malodor. no clinical signs of active infection. MSK: Pes cavus, no pain during Active ROM and Passive ROM at the Ankle Joint or MTPJ, No pain on palpation of the hyperkeratotic lesions - Neurological Exam Neurological Exam: Alert, Awake, Oriented x3 Assessment and Plan - Assessment and Plan (Free Text) Assessment: 72 year old male patient seen and evaluated for Hyperkeratotic lesions with suspected underlying pressure ulcers. Plan: Patient seen and evaluated at the bed side Discussed plan with attending Dr. Diaz Chart labs and vitals reviewed; Afebrile, No leukocytosis Submet 5 hyperkeratotic lesion debrided using sterile 15 blade. Patient tolerated the procedure well with no complications. Left foot dressed using betadine and DSD. Patient instructed not to remove the dressings and to use the surgical shoe whenever he is ambulating. Patient instructed to keep the dressing C/D/I. Patient expressed verbal understanding. Patient is stable from the podiatry standpoint. Podiatry to continue to follow up the patient while in-house.
--- NOTE | 2017-12-15 18:55 | PCM.PYCHPN ---
Psychiatric Progress Note - Psychiatric Progress Note Patient seen today, length of contact: Patient evaluated, case discussed w/ team, chart reviewed Patient Chief Complaint: alteration in cognition alteration mood self care Problems Identified/Issues Discussed: alteration in cognition Medical Problems: per chart Diagnostic Results: alteration in cognition alteration self care Medication Change: No Medical Record Reviewed: Yes Consults ordered or reviewed: pt seen by hospitalist Mental Status Examination - Cognitive Function Orientation: Person, Place, Situation Memory: Impaired Attention: Poor Concentration: Poor Association: Loose Fund of Knowledge: Poor - Mood Mood: Neutral - Affect Affect: Broad - Speech Speech: Appropriate - Formal Thought Process Formal Thought Process: Loosening of associations, Flight of ideas - Suicidal Ideation Suicidal Ideation: No - Homicidal Ideation Homicidal Ideation: No Goal/Treatment Plan - Goal/Treatment Plan Need for Continued Stay: Severe functional impairment Progress Toward Problem(s) and Goals/Treatment Plan: inpt milieu adjust meds per status-trazodone 25mg po hs prn insomnia get up slowly falls precautions assess for constipation vital signs and clinical observtion per protocol and per status discharge planning in progress\ falls precautions Estimated Date of D/C: 02/08/18 - Smoking Cessation Smoking Cessation Initiated: No Reason for not providing: pt defers
[2017-12-16] MEDS: Levothyroxine 25 MCG TAB PO SCH (06:47)
[2017-12-16] MEDS: Risperidone M TAB 2 MG PO SCH ×2 (08:39→21:20)
[2017-12-16] MEDS: GlipiZIDE 10 mg SR Tab PO SCH (08:39)
[2017-12-16] MEDS: Insulin Regular 100 units/ml SC SCH ×5 (08:40→21:21)
--- NOTE | 2017-12-16 12:16 | PN ---
DATE: 12/16/2017 SUBJECTIVE: The patient seen and examined. Interim events noted. Psychiatry followup intervention noted and appreciated. The patient remains in geropsych unit. Denies any specific medical complaint. No specific issue reported by nursing staff. PHYSICAL EXAMINATION: GENERAL: The patient is in no acute distress. VITAL SIGNS: Stable. Physical exam is essentially unchanged. DIAGNOSTIC DATA: Available diagnostic data reviewed. Accu-Cheks are acceptable. ASSESSMENT AND PLAN: Overall, the patient is medically stable. Plan as ordered. Agustin Alvarez MD
--- NOTE | 2017-12-16 16:22 | PCM.PYCHPN ---
Psychiatric Progress Note - Psychiatric Progress Note Patient seen today, length of contact: Patient evaluated, case discussed w/ team, chart reviewed Patient Chief Complaint: alteration in cognition alteration mood self care Problems Identified/Issues Discussed: alteration in cognition Medical Problems: per chart Diagnostic Results: alteration in cognition alteration self care DSM 5 Symptoms Update: pt seen about unit at times, staff report requires some redirection, taking rx. denies side effects. Medication Change: No Medical Record Reviewed: Yes Consults ordered or reviewed: seen chart reviewed Mental Status Examination - Cognitive Function Orientation: Person, Place, Situation Memory: Impaired Attention: Poor Concentration: Poor Association: Loose Fund of Knowledge: Poor Decription of patient's judgement and insights: impaired - Mood Mood: Neutral - Affect Affect: Broad - Speech Speech: Appropriate - Formal Thought Process Formal Thought Process: Loosening of associations, Flight of ideas - Suicidal Ideation Suicidal Ideation: No - Homicidal Ideation Homicidal Ideation: No Goal/Treatment Plan - Goal/Treatment Plan Need for Continued Stay: Severe functional impairment Progress Toward Problem(s) and Goals/Treatment Plan: inpt milieu adjust meds per status-trazodone 25mg po hs prn insomnia get up slowly falls precautions assess for constipation vital signs and clinical observtion per protocol and per status discharge planning in progress\ falls precautions Estimated Date of D/C: 12/28/17 - Smoking Cessation Smoking Cessation Initiated: No Reason for not providing: pt defers
--- NOTE | 2017-12-17 07:56 | PCM.PYCHPN ---
Psychiatric Progress Note - Psychiatric Progress Note Patient seen today, length of contact: Patient evaluated, case discussed w/ team, chart reviewed Patient Chief Complaint: "The police brought me here." Problems Identified/Issues Discussed: No new events over the weekend. Patient continues to have poor insight/judgment and significant memory deficits. Patient is unable to understand that he has acute medical issues and psychiatric issues. He does not understand why he needs medical or psychiatric treatment and does not believe he needs to take any medications. Patient does not have capacity to make medical decisions at this time; nor can he care for his basic needs. Medication Change: No Medical Record Reviewed: Yes Consults ordered or reviewed: Medicine, Podiatry, PT Psychology consult PT is a 72 year old male admitted to [facility] and referred to the data analyst report writer for evaluation. Only portions of the DRS could be administered due to patient's visual deficits. On tasks administered, pt scored in the Deficient Range on Attention, Conceptualization, Memory and Initation tasks. Pt was able to repeat four digits forward though 0 backward. On Initiation tasks he recalled only 12 items from a supermarket in 60 seconds. Pt was unable to copy any drawings due to visual issues. Pt's Abstraction skills were impaired. He was unable to communicate similarities between items. MEmory was impaired. Pt was unable to state the day, date, mayor, governor. He was unable to recall sentences following a five minute delay. Score 100> Deficits noted on evaluation Thank you for this referral Mental Status Examination - Cognitive Function Orientation: Person, Place, Situation Memory: Impaired Attention: Poor Concentration: Poor Association: Loose Fund of Knowledge: Poor Decription of patient's judgement and insights: Poor I/J - Mood Mood: Neutral - Affect Affect: Broad - Speech Speech: Appropriate - Formal Thought Process Formal Thought Process: Loosening of associations, Flight of ideas Psychotic Thoughts and Behaviors: No AH/VH - Suicidal Ideation Suicidal Ideation: No - Homicidal Ideation Homicidal Ideation: No Goal/Treatment Plan - Goal/Treatment Plan Need for Continued Stay: Severe functional impairment Progress Toward Problem(s) and Goals/Treatment Plan: Schizoaffective Disorder; Dementia -Individual and group therapy -Medicine consult -Continue Risperdal -Dietitian referral -Podiatry consult -PT -Disposition planning- patient does not have capacity to make medical decisions at this time; Guardianship process initiated Estimated Date of D/C: 02/08/18
[2017-12-17] MEDS: GlipiZIDE 10 mg SR Tab PO SCH (08:17)
[2017-12-17] MEDS: Risperidone M TAB 2 MG PO SCH ×2 (08:18→21:02)
[2017-12-17] MEDS: Insulin Regular 100 units/ml SC SCH ×4 (08:18→21:01)
[2017-12-17] MEDS: Levothyroxine 25 MCG TAB PO SCH (08:19)
--- NOTE | 2017-12-18 07:52 | PCM.BM ---
Treatment Plan Problems - Problems identified on initial assessmt Altered Thought Process Date Initiated: 11/17/17 Time Initiated: 18:34 Date resolved: 11/24/17 Assessment reference: NA Status: Active Priority: 1 medication non adherence Date Initiated: 11/17/17 Time Initiated: 18:35 Date resolved: 11/24/17 Assessment reference: NA Status: Active Priority: 2 Treatment assets and liabiliti Patient Assests: cooperative, negotiates basic needs Patient Liabilities: live alone, poor support system, dietary restrictions, medical problems - Milieu Protocol Maintain good personal hygiene: every shift Encourage regular showers, every shift Remind patient to perform daily oral care, every shift Assist patient to perform ADL's Maintain personal safety: every shift Educate patient to report safety concerns to staff, every shift Monitor environment for contraband/sharps Medication safety: Monitor for expected outcome, potential side effects: every shift, Assess barriers to learning: every shift, Assess readiness for medication education: every shift Milieu Narrative: Schizoaffective Disorder; Dementia -Individual and group therapy -Medicine consult -Continue Risperdal -Dietitian referral -Podiatry consult -PT -Disposition planning- patient does not have capacity to make medical decisions at this time; Guardianship process initiated Family Contact Family involvement: Famliy/SO not involved - Goals for Treatment Patient goals for treatment: "Get me coupons, help me better." Discharge/Continuing Care - Education Needs Education Needs: Patient Medication, Patient Diagnosis/Disease Process, Patient Coping Skills, Patient Placement options, Patient Community resources, Patient Activities of Daily Living, Patient Nutrition, Patient Personal Hygiene/Grooming, Patient Aftercare Safety Plan - Discharge Discharge Criteria: Tolerates medication w/o severe side effects, Ability to care for self, Reduction of target symptoms Discharge to:: Home, Other (Pt pending guardianship. Pt presents with poor insight and judgment into his medical and psychiatric illness. ) - Additional Comments 11/19/17 14:24 Pt seen and discussed in team meeting. Reason for admission reviewed and discussed. Pt reported he was referred to the ED by 2 police offers. Pt unable to provide reason and/or explanation for hospitalization. Pt stated "I was talking like always." Pt reported residing alone and has no social/emotional support system. Pt presents with disorganized thought process, hypervebral, word slad, and very difficult for team members to follow pt's thought process. Pt's social and medical issues reviewed. 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 Pt's medi cations reviewed. Pr's tx plan reviewed and discussed with plan. SW to continue to follow case. - Treatment Team Participation Patient/Family/SO Statement: Schizoaffective Disorder; Dementia -Individual and group therapy -Medicine consult -Continue Risperdal -Dietitian referral -Podiatry consult -PT -Disposition planning- patient does not have capacity to make medical decisions at this time; Guardianship process initiated Discussed with Family/SO: No Was Patient/Family/SO present at Treatment Team Meeting: Yes Treatment Plan Review Patient participation: Yes Family/SO/Caregiver participation: No Additional Comments: Pt seen and discussed in team meeting. Pt's progress and bx on the unit reviewed. Pt reported feeling "good today, i feel happy." Pt reported "good" sleep pattern. Pt reported having a "good" appetite. Pt reported that he does not need psychiatric medications. Psycho-education provided regarding illness and medications. Pt is pending guardianship; process initiated on 12/13/2017. Pt continues to present with poor insight and judgment into illness and required medications. Tx plan reviewed and discussed. Pt's medications reviewed. SW to continue to follow case. - Problem Altered Thought Process Time Initiated: 18:34 Progress toward outcomes: improved (Pt has periods of lucidity and organized thought process.) medication non adherence Date Initiated: 11/17/17 Time Initiated: 18:35 Progress toward outcomes: resolved Date resolved: 11/26/17 Imapired ambulation/stair climbing Date Initiated: 11/17/17 Time Initiated: 07:52 Progress toward outcomes: improved - Discharge / Continuing Care Discharge to:: Home Behavioral Health Services: Outpatient therapy, Home health care, Adult day care Health Needs: Follow up care/test, Doctor appointments, Special equipment, Nutritional, Medications/Rx, Educational, Recreational/Social
[2017-12-18] MEDS: GlipiZIDE 10 mg SR Tab PO SCH (08:11)
[2017-12-18] MEDS: Insulin Regular 100 units/ml SC SCH ×3 (08:12→16:38)
[2017-12-18] MEDS: Risperidone M TAB 2 MG PO SCH ×2 (08:12→20:14)
[2017-12-18] MEDS: Levothyroxine 25 MCG TAB PO SCH (08:13)
--- NOTE | 2017-12-18 08:32 | PCM.PYCHPN ---
Psychiatric Progress Note - Psychiatric Progress Note Patient seen today, length of contact: Patient evaluated, case discussed w/ team, chart reviewed Patient Chief Complaint: "The police brought me here." Problems Identified/Issues Discussed: No new events. Patient continues to have poor insight/judgment and significant memory deficits. Patient is unable to understand that he has acute medical issues and psychiatric issues. He does not understand why he needs medical or psychiatric treatment and does not believe he needs to take any medications. Patient does not have capacity to make medical decisions at this time; nor can he care for his basic needs. Medication Change: No Medical Record Reviewed: Yes Consults ordered or reviewed: Medicine, Podiatry, PT Psychology consult PT is a 72 year old male admitted to [facility] and referred to the functional tester typewriters for evaluation. Only portions of the DRS could be administered due to patient's visual deficits. On tasks administered, pt scored in the Deficient Range on Attention, Conceptualization, Memory and Initation tasks. Pt was able to repeat four digits forward though 0 backward. On Initiation tasks he recalled only 12 items from a supermarket in 60 seconds. Pt was unable to copy any drawings due to visual issues. Pt's Abstraction skills were impaired. He was unable to communicate similarities between items. MEmory was impaired. Pt was unable to state the day, date, mayor, governor. He was unable to recall sentences following a five minute delay. Score 100> Deficits noted on evaluation Thank you for this referral Mental Status Examination - Cognitive Function Orientation: Person, Place, Situation Memory: Impaired Attention: Poor Concentration: Poor Association: Loose Fund of Knowledge: Poor Decription of patient's judgement and insights: Poor I/J - Mood Mood: Neutral - Affect Affect: Broad - Speech Speech: Appropriate - Formal Thought Process Formal Thought Process: Loosening of associations, Flight of ideas Psychotic Thoughts and Behaviors: No AH/VH - Suicidal Ideation Suicidal Ideation: No - Homicidal Ideation Homicidal Ideation: No Goal/Treatment Plan - Goal/Treatment Plan Need for Continued Stay: Severe functional impairment Progress Toward Problem(s) and Goals/Treatment Plan: Schizoaffective Disorder; Dementia -Individual and group therapy -Medicine consult -Continue Risperdal -Dietitian referral -Podiatry consult -PT -Disposition planning- patient does not have capacity to make medical decisions at this time; Guardianship process initiated Estimated Date of D/C: 02/08/18
--- NOTE | 2017-12-18 09:05 | PN ---
DATE: 12/17/2017 SUBJECTIVE: The patient seen and examined. Interim events noted. Psychiatry followup and interventions noted and appreciated. The patient remains in the geropsych unit, awake, responsive, ambulatory. No specific medical complaint offered. No specific issue reported by nursing staff. PHYSICAL EXAMINATION: GENERAL: The patient is in no acute distress. VITAL SIGNS: Stable. Physical exam is essentially unchanged. DIAGNOSTIC DATA: Available diagnostic data reviewed. Accu-Cheks are acceptable. ASSESSMENT AND PLAN: Overall, the patient's general medical condition is stable. The patient is awaiting guardianship. Plan as ordered. Agustin Alvarez MD
--- NOTE | 2017-12-18 09:06 | PN ---
DATE: 12/18/2017 SUBJECTIVE: The patient is seen and examined. Interim events noted. Psychiatric followup and intervention noted and appreciated. The patient remains in geropsych unit. She was found to have regurgitation yesterday related to quantity of food. Currently, denies any specific complaint of chest pain or shortness of breath. PHYSICAL EXAMINATION: GENERAL: The patient is in no acute distress. VITAL SIGNS: Stable. Physical exam is essentially unchanged. DIAGNOSTIC DATA: Available diagnostic data reviewed. AccuCheks are acceptable. ASSESSMENT AND PLAN: Overall, the patient is medically stable. Plan as ordered. Agustin Alvarez MD
--- NOTE | 2017-12-18 10:25 | CP.PCM.PN ---
Subjective - Date & Time of Evaluation Date of Evaluation: 12/18/17 Time of Evaluation: 10:22 - Subjective Subjective: Podiatry progress note for Dr. Diaz 72 years old male patient was seen and evaluated in psych unit for hyperkeratotic lesions to left foot. Patient appears in NAD. Patient was wearing surgical shoe at the visit time. Patients dressing is intact, however soaked again with water. Patient denies of any pain to his left LE. Patient de nies of any acute overnight events. Patient denies of any overnight F/N/V/C or SOB. Patient denies any other pedal complaint at this time. Objective - Vital Signs/Intake and Output Vital Signs (last 24 hours): Temp Pulse Resp BP Pulse Ox 98.1 F 88 19 111/66 18 L 12/18/17 06:00 12/18/17 06:00 12/18/17 06:00 12/18/17 06:00 11/24/17 16:38 - Medications Medications: Current Medications Acetaminophen (Tylenol 325mg Tab) 650 mg PO Q4 PRN PRN Reason: Pain, moderate (4-7) Al Hydrox/Mg Hydrox/Simethicone (Maalox Plus 30 Ml) 30 ml PO Q4 PRN PRN Reason: Dyspepsia Aspirin (Aspirin Chewable) 81 mg PO DAILY [facility] Last Admin: 12/18/17 08:11 Dose: 81 mg Bismuth Subsalicylate (Pepto-Bismol) 524 mg PO Q4 PRN PRN Reason: Diarrhea Diphenhydramine HCl (Benadryl) 50 mg IM Q6 PRN PRN Reason: Other Diphenhydramine HCl (Benadryl) 50 mg PO Q6 PRN PRN Reason: Other Last Admin: 12/09/17 21:18 Dose: 50 mg Diphenhydramine HCl (Benadryl) 50 mg PO HS PRN PRN Reason: Sleep Last Admin: 12/14/17 23:24 Dose: 50 mg Glipizide (Glucotrol Xl) 10 mg PO BRK [facility] Last Admin: 12/18/17 08:11 Dose: 10 mg Haloperidol (Haldol) 2 mg PO Q6 PRN PRN Reason: Agitation Haloperidol Lactate (Haldol) 2 mg IM Q6 PRN PRN Reason: Agitation Insulin Human Regular (Humulin R) 0 units SC ACHS [facility]; Protocol Last Admin: 12/18/17 08:12 Dose: Not Given Levothyroxine Sodium (Synthroid) 25 mcg PO DAILY@0630 [facility] Last Admin: 12/18/17 08:13 Dose: 25 mcg Lorazepam (Ativan) 0.5 mg PO HS PRN PRN Reason: Insomnia Last Admin: 12/13/17 23:46 Dose: 0.5 mg Lorazepam (Ativan) 0.5 mg PO Q6 PRN PRN Reason: Anxiety Last Admin: 12/17/17 17:25 Dose: 0.5 mg Lorazepam (Ativan) 1 mg IM Q6 PRN PRN Reason: Agitation Magnesium Hydroxide (Milk Of Magnesia) 30 ml PO HS PRN PRN Reason: Constipation Risperidone (Risperdal M-Tab) 2 mg PO Q12 [facility] Last Admin: 12/18/17 08:12 Dose: 2 mg Sitagliptin Phosphate (Januvia) 100 mg PO DAILY [facility] Last Admin: 12/18/17 08:12 Dose: 100 mg Trazodone HCl (Desyrel) 25 mg PO HS PRN PRN Reason: Insomnia Last Admin: 12/18/17 00:34 Dose: 25 mg - Labs Labs: 11/18/17 06:52 11/18/17 06:52 - Constitutional Appears: Well, Non-toxic, No Acute Distress - Head Exam Head Exam: ATRAUMATIC, NORMOCEPHALIC - Extremities Exam Additional comments: Right LE focused exam: Vasc: DP/PT pulses are faintly palpable. Cap refill time: < 3 seconds to all digits. Skin temperature warm to cool from proximal to distal. no pitting or non-pitting edema noted Neuro: Gross and protective sensations are intact. Derm: Soft hyperkeratotic lesions noted on the plantar aspect of the metatarsal head 1 and 5 - underlying wounds suspected, no inter digital maceration, no apparent lesions present and no clinical signs of active infection. Skin is macerated on the forefoot and rearfoot secondary to the urine soaking the dressing. after debriding the callous submet 5 a small ulcer almost closed 0.2X0.2X0.1 cm. no drainage. no malodor. No erythema. No probing to bone. No tracking or undermining. Base is granular 100%. Another tiny wound submet 1 which is covered by a scab. no drainage or malodor. no clinical signs of active infection. MSK: Pes cavus, no pain during Active ROM and Passive ROM at the Ankle Joint or MTPJ, No pain on palpation of the hyperkeratotic lesions - Neurological Exam Neurological Exam: Alert, Awake, Oriented x3 Assessment and Plan - Assessment and Plan (Free Text) Assessment: 72 year old male patient seen and evaluated for Hyperkeratotic lesions in the left foot with suspected underlying pressure ulcers. Plan: Patient seen and evaluated at the bed side Discussed plan with attending Dr. Diaz Chart labs and vitals reviewed; Afebrile, No leukocytosis Left foot dressed using betadine and DSD. Patient instructed not to remove the dressings and to use the surgical shoe wh enever he is ambulating. Patient instructed to keep the dressing C/D/I. Patient expressed verbal understanding. Patient is stable from the podiatry standpoint. Podiatry to continue to follow up the patient while in-house.
[2017-12-19] MEDS: Levothyroxine 25 MCG TAB PO SCH (06:15)
[2017-12-19] MEDS: Risperidone M TAB 2 MG PO SCH ×2 (08:18→21:04)
[2017-12-19] MEDS: GlipiZIDE 10 mg SR Tab PO SCH (08:19)
[2017-12-19] MEDS: Insulin Regular 100 units/ml SC SCH ×2 (08:19→16:17)
--- NOTE | 2017-12-19 08:41 | PCM.PYCHPN ---
Psychiatric Progress Note - Psychiatric Progress Note Patient seen today, length of contact: Patient evaluated, case discussed w/ team, chart reviewed Patient Chief Complaint: "The police brought me here." Problems Identified/Issues Discussed: No new events overnight. Patient continues to have poor insight/judgment and significant memory deficits. Patient is unable to understand that he has acute medical issues and psychiatric issues. He does not understand why he needs medical or psychiatric treatment and does not believe he needs to take any medications. Patient does not have capacity to make medical decisions at this time; nor can he care for his basic needs. Medication Change: No Medical Record Reviewed: Yes Consults ordered or reviewed: Medicine, Podiatry, PT Psychology consult PT is a 72 year old male admitted to [facility] and referred to the movie writer for evaluation. Only portions of the DRS could be administered due to patient's visual deficits. On tasks administered, pt scored in the Deficient Range on Attention, Conceptualization, Memory and Initation tasks. Pt was able to repeat four digits forward though 0 backward. On Initiation tasks he recalled only 12 items from a supermarket in 60 seconds. Pt was unable to copy any drawings due to visual issues. Pt's Abstraction skills were impaired. He was unable to communicate similarities between items. MEmory was impaired. Pt was unable to state the day, date, mayor, governor. He was unable to recall sentences following a five minute delay. Score 100> Deficits noted on evaluation Thank you for this referral Mental Status Examination - Cognitive Function Orientation: Person, Place, Situation Memory: Impaired Attention: Poor Concentration: Poor Association: Loose Fund of Knowledge: Poor Decription of patient's judgement and insights: Poor I/J - Mood Mood: Neutral - Affect Affect: Broad - Speech Speech: Appropriate - Formal Thought Process Formal Thought Process: Loosening of associations, Flight of ideas Psychotic Thoughts and Behaviors: No AH/VH - Suicidal Ideation Suicidal Ideation: No - Homicidal Ideation Homicidal Ideation: No Goal/Treatment Plan - Goal/Treatment Plan Need for Continued Stay: Severe functional impairment Progress Toward Problem(s) and Goals/Treatment Plan: Schizoaffective Disorder; Dementia -Individual and group therapy -Medicine consult -Continue Risperdal -Dietitian referral -Podiatry consult -PT -Disposition planning- patient does not have capacity to make medical decisions at this time; Guardianship process initiated Estimated Date of D/C: 02/08/18
--- NOTE | 2017-12-19 11:54 | PN ---
DATE: 12/19/2017 SUBJECTIVE: The patient seen and examined. Interim events noted. Followup and intervention noted and appreciated. The patient remains in geropsych unit. The patient feels okay. Denies any specific medical complaints. No specific issue reported by nursing staff. PHYSICAL EXAMINATION: GENERAL: The patient is in no acute distress. VITAL SIGNS: Stable. Physical exam is essentially unchanged. DIAGNOSTIC DATA: Available diagnostic data reviewed. ASSESSMENT AND PLAN: Overall, the patient's general medical condition is stable. Plan as ordered. Agustin Alvarez MD
[2017-12-20] MEDS: Levothyroxine 25 MCG TAB PO SCH (06:12)
--- NOTE | 2017-12-20 07:12 | CP.PCM.PN ---
Subjective - Date & Time of Evaluation Date of Evaluation: 12/20/17 Time of Evaluation: 10:25 - Subjective Subjective: Podiatry progress note for Dr. Diaz 72 years old male patient was seen and evaluated in psych unit for hyperkeratotic lesions to left foot. Patient appears in NAD. Patient was wearing surgical shoe at the visit time. Patients dressing is intact, however soaked again with water. Patient denies of any pain to his left LE. Patient de nies of any acute overnight events. Patient denies of any overnight F/N/V/C or SOB. Patient denies any other pedal complaint at this time. Objective - Vital Signs/Intake and Output Vital Signs (last 24 hours): Temp Pulse Resp BP Pulse Ox 98.1 F 90 19 114/71 18 L 12/20/17 06:00 12/20/17 06:00 12/20/17 06:00 12/20/17 06:00 11/24/17 16:38 - Medications Medications: Current Medications Acetaminophen (Tylenol 325mg Tab) 650 mg PO Q4 PRN PRN Reason: Pain, moderate (4-7) Last Admin: 12/19/17 10:35 Dose: 650 mg Al Hydrox/Mg Hydrox/Simethicone (Maalox Plus 30 Ml) 30 ml PO Q4 PRN PRN Reason: Dyspepsia Aspirin (Aspirin Chewable) 81 mg PO DAILY [facility] Last Admin: 12/19/17 08:18 Dose: 81 mg Bismuth Subsalicylate (Pepto-Bismol) 524 mg PO Q4 PRN PRN Reason: Diarrhea Diphenhydramine HCl (Benadryl) 50 mg IM Q6 PRN PRN Reason: Other Diphenhydramine HCl (Benadryl) 50 mg PO Q6 PRN PRN Reason: Other Last Admin: 12/09/17 21:18 Dose: 50 mg Diphenhydramine HCl (Benadryl) 50 mg PO HS PRN PRN Reason: Sleep Last Admin: 12/14/17 23:24 Dose: 50 mg Glipizide (Glucotrol Xl) 10 mg PO BRK [facility] Last Admin: 12/19/17 08:19 Dose: 10 mg Haloperidol (Haldol) 2 mg PO Q6 PRN PRN Reason: Agitation Haloperidol Lactate (Haldol) 2 mg IM Q6 PRN PRN Reason: Agitation Insulin Human Regular (Humulin R) 0 units SC BIDAC [facility]; Protocol Last Admin: 12/19/17 16:17 Dose: Not Given Levothyroxine Sodium (Synthroid) 25 mcg PO DAILY@0630 [facility] Last Admin: 12/20/17 06:12 Dose: 25 mcg Lorazepam (Ativan) 0.5 mg PO HS PRN PRN Reason: Insomnia Last Admin: 12/13/17 23:46 Dose: 0.5 mg Lorazepam (Ativan) 0.5 mg PO Q6 PRN PRN Reason: Anxiety Last Admin: 12/17/17 17:25 Dose: 0.5 mg Lorazepam (Ativan) 1 mg IM Q6 PRN PRN Reason: Agitation Magnesium Hydroxide (Milk Of Magnesia) 30 ml PO HS PRN PRN Reason: Constipation Risperidone (Risperdal M-Tab) 2 mg PO Q12 [facility] Last Admin: 12/19/17 21:04 Dose: 2 mg Sitagliptin Phosphate (Januvia) 100 mg PO DAILY [facility] Last Admin: 12/19/17 08:19 Dose: 100 mg Trazodone HCl (Desyrel) 25 mg PO HS PRN PRN Reason: Insomnia Last Admin: 12/19/17 23:37 Dose: 25 mg - Labs Labs: 11/18/17 06:52 11/18/17 06:52 - Constitutional Appears: Well, Non-toxic, No Acute Distress - Head Exam Head Exam: ATRAUMATIC, NORMOCEPHALIC - Extremities Exam Additional comments: Right LE focused exam: Vasc: DP/PT pulses are faintly palpable. Cap refill time: < 3 seconds to all digits. Skin temperature warm to cool from proximal to distal. no pitting or non-pitting edema noted Neuro: Gross and protective sensations are intact. Derm: Soft hyperkeratotic lesions noted on the plantar aspect of the metatarsal head 1 and 5 - no inter digital maceration, no apparent lesions present and no clinical signs of active infection. Skin is macerated on the forefoot and rearfoot secondary to the urine soaking the dressing. after debriding the callous submet 5 a small closed wound 0.1X0.1cm. no drainage. no malodor. No erythema. No probing to bone. No tracking or undermining. ulcer is covered by a scab. MSK: Pes cavus, no pain during Active ROM and Passive ROM at the Ankle Joint or MTPJ, No pain on palpation of the hyperkeratotic lesions - Neurological Exam Neurological Exam: Alert, Awake, Oriented x3 Assessment and Plan - Assessment and Plan (Free Text) Assessment: 72 year old male patient seen and evaluated for Hyperkeratotic lesions in the left foot with suspected underlying pressure ulcers. Plan: Patient seen and evaluated at the bed side Discussed plan with attending Dr. Diaz Chart labs and vitals reviewed; Afebrile, No leukocytosis Left foot dressed using betadine and DSD. Patient instructed not to remove the dressings and to use the surgical shoe whenever he is ambulating. Patient instructed to keep the dressing C/D/I. Patient expressed verbal understanding. Patient is stable from the podiatry standpoint. Podiatry is signing off the patient Thank you for consulting podiatry service.
[2017-12-20] MEDS: Risperidone M TAB 2 MG PO SCH (08:36)
[2017-12-20] MEDS: GlipiZIDE 10 mg SR Tab PO SCH (08:36)
[2017-12-20] MEDS: Insulin Regular 100 units/ml SC SCH ×2 (08:37→16:59)
--- NOTE | 2017-12-20 10:06 | PCM.PYCHPN ---
Psychiatric Progress Note - Psychiatric Progress Note Patient seen today, length of contact: Patient evaluated, case discussed w/ team, chart reviewed Patient Chief Complaint: "The police brought me here." Problems Identified/Issues Discussed: No new events. Patient continues to have poor insight/judgment and significant memory deficits. Patient is unable to understand that he has acute medical issues and psychiatric issues. He does not understand why he needs medical or psychiatric treatment and does not believe he needs to take any medications. Patient does not have capacity to make medical decisions at this time; nor can he care for his basic needs. Medication Change: No Medical Record Reviewed: Yes Consults ordered or reviewed: Medicine, Podiatry, PT Psychology consult PT is a 72 year old male admitted to [facility] and referred to the card writer hand for evaluation. Only portions of the DRS could be administered due to patient's visual deficits. On tasks administered, pt scored in the Deficient Range on Attention, Conceptualization, Memory and Initation tasks. Pt was able to repeat four digits forward though 0 backward. On Initiation tasks he recalled only 12 items from a supermarket in 60 seconds. Pt was unable to copy any drawings due to visual issues. Pt's Abstraction skills were impaired. He was unable to communicate similarities between items. MEmory was impaired. Pt was unable to state the day, date, mayor, governor. He was unable to recall sentences following a five minute delay. Score 100> Deficits noted on evaluation Thank you for this referral Mental Status Examination - Cognitive Function Orientation: Person, Place, Situation Memory: Impaired Attention: Poor Concentration: Poor Association: Loose Fund of Knowledge: Poor Decription of patient's judgement and insights: Poor I/J - Mood Mood: Neutral - Affect Affect: Broad - Speech Speech: Appropriate - Formal Thought Process Formal Thought Process: Loosening of associations, Flight of ideas Psychotic Thoughts and Behaviors: No AH/VH - Suicidal Ideation Suicidal Ideation: No - Homicidal Ideation Homicidal Ideation: No Goal/Treatment Plan - Goal/Treatment Plan Need for Continued Stay: Severe functional impairment Progress Toward Problem(s) and Goals/Treatment Plan: Schizoaffective Disorder; Dementia -Individual and group therapy -Medicine consult -Continue Risperdal -Dietitian referral -Podiatry consult -PT -Disposition planning- patient does not have capacity to make medical decisions at this time; Guardianship process initiated Estimated Date of D/C: 02/08/18
--- NOTE | 2017-12-20 14:52 | PN ---
DATE: 12/20/2017 SUBJECTIVE: The patient was seen and examined. Interim events noted. The patient remains in geropsych unit. Awake, responsive, feels okay. Denies any chest pain. No shortness of breath. No specific issue reported by nursing staff. PHYSICAL EXAMINATION: GENERAL: The patient is in no acute distress. Physical exam is essentially unchanged. DIAGNOSTIC DATA: Available diagnostic data reviewed. ASSESSMENT AND PLAN: Overall, the patient's general medical condition is stable. Plan as ordered. Agustin Alvarez MD
[2017-12-20 16:15] VITALS: RESP 20
[2017-12-20 19:37] VITALS: BP 137/57; PULSE 75; TEMP 101.8; O2SAT 94
--- NOTE | 2017-12-20 19:45 | PCM.RRT ---
Addendum entered and electronically signed by Adrian Novak MD 12/20/17 21:20: Patient was seen and evaluated during SPORTS ANNOUNCER. Agree with resident assessment and plan SPORTS ANNOUNCER called by staff for change in mental status and patient being more drowsy Patient unable to provide history but responsive , opens eyes ,, has no complaints He was found to be febrile Tmax 101.6 , tachypneic , saturating 91 % in 5 L O2 via NC , drowsy Patient noticed to be coughing with sputum production Assessment Possible Pneumonia/ Sepsis Will transfer patient to ER for evaluation and admission to medical floor patient enderosed to ER physician Tylenol given to patient before transfer Original Note: SPORTS ANNOUNCER Nurse Assessment - Situation Location: [facility] ANN[employer]NCER Reason for Call: Change in Mental Status SPORTS ANNOUNCER Called By: RN - IV IV Inserted during SPORTS ANNOUNCER?: Yes IV Fluids Initiated During SPORTS ANNOUNCER?: no New IV Insertion Tolerance:: Good - Respiratory Oxygen Delivery Method: Nasal Cannula Received Nebulizer Treatments: No Was the Patient Ventilated with Bag/Mask 100% O2?: No Secretions Suctioned?: No Was the Patient Intubated?: No Was the Patient Placed on a Ventilator?: No - Diagnostic Test Ordered EKG: No Chest X-Ray: No CT Scan: No CPR started during SPORTS ANNOUNCER?: No - Vital Signs Vital Signs: T: 100.6 (axillary), 101.6 (oral) BP: 137/57 HR: 95 RR: 12 POX: 92% on 5L NC - [place] Coma Scale Coma Scale Eye Opening: To verbal stimuli Coma Scale Motor: Movement to pain stimulus Coma Scale Verbal: Incomprehensible speech Coma Scale Total: 10 - Sepsis Screen Part 1 Sepsis Screen Part 1: Temperature over 100.6F - Time SPORTS ANNOUNCER Ended Time SPORTS ANNOUNCER Ended: 19:35 - Vital Signs at end of SPORTS ANNOUNCER Vital Signs at end of SPORTS ANNOUNCER: T: 101.6 F (oral) BP: 135/55 HR: 94 RR: 12 POX: 95% on 5L NC - Recommendations SPORTS ANNOUNCER Level of Care Recommendations: Discharge to Emergency Room I.Reason for SPORTS ANNOUNCER - A) Acute Change in Patient: (Select all that apply): Acute change in mental status Subjective: SPORTS ANNOUNCER called on 72 y/o male with extensive psych history for new onset AMS. Nurse whom called SPORTS ANNOUNCER reports pt was in his normal state of health today, but started violently coughing several minutes before SPORTS ANNOUNCER was called and then became lethargic. RN reports the cough was very phlegmous sounding but without any noted production. All morning medications were given as scheduled. RN denies any sick contacts on the floor. Afebrile this morning. Pt has been in psych hold awaiting placement for several weeks now. - Neurological Status (Select all that apply): Lethargic - Respiratory Oxygen Delivery Method: Nasal Cannula @L/min (5) Oxygen Flow Rate: 5 (L) - Constitutional Appears: Non-toxic, Unkempt Additional Comments: lethargic, but arousable to verbal stimuli - Head Head Exam: ATRAUMATIC, NORMOCEPHALIC - Eyes Eye Exam: EOMI, PERRL - Respiratory Exam Respiratory Exam: Accessory Muscle Use, Decreased Breath Sounds (left). absent: Clear to Ausculation Bilateral, Rales, Rhonchi, Wheezes, NORMAL BREATHING PATTERN - Cardiovascular Exam Cardiovascular Exam: REGULAR RHYTHM, RRR, +S1, +S2. absent: JVD, Rubs, Murmur - Neurological Exam Neurological Exam: Altered. absent: Alert, Normal Gait, Oriented x3 - Extremities Exam Extremities Exam: absent: Normal Inspection (left foot ulcer, bandaged, C/D/I) Plan - Assessment of Findings&Treatment Plan 72 y/o male with extensive psych history had SPORTS ANNOUNCER called secondary to altered mental status. Plan: AMS: all new medications reviewed, pt is febrile, tachypneic and has lower than baseline oxygen saturation on 5L NC. He is also lethargic and has phelgmous sounding cough accompanied with decreased breath sounds in the left lower lung field. -pt was transferred to [facility] to ED for further evaluation -attending physician Dr. Novak signed pt off to ER attending Dr. Flowers.
--- NOTE | 2017-12-27 13:28 | PQF ---
PROVIDER RESPONSE TEXT: Hyperkeratotic lesion with underlying wound (Stage 1) was noted on the plantar aspect of the metatars al head 1 and 5 of the left foot. The hyperkeratotic lesion with underlying wound was present during admission. It appeared to be clinically stable during admission. REVIEWER QUERY TEXT: Pressure Ulcer Type Pressure ulcer is documented in the Medical Record. Please specify the location, present on admission status and stage: Location and laterality of pressure ulcer(s): POA status of each pressure ulcer: -- Not present on admission -- Present on admission -- Other -- Clinically unable to determine -- Unknown Stage of each pressure ulcer (National Pressure Ulcer Advisory Panel definitions): -- Stage I: Intact skin with non-blanchable redness of a localized area -- Stage II: Partial thickness skin loss involving dermis with a shallow open ulcer or an open serum -filled blister -- Stage III: Full thickness skin loss involving damage or necrosis of subcutaneous tissue -- Stage IV: Full thickness skin loss with exposed bone, tendon or muscle -- Unstageable: Full thickness tissue loss in which the base of the ulcer is covered by slough and/o r eschar in the wound bed The patient's Clinical Indicators include: 12/[address] Raines " suspected left foot pressure ulcer." Query created by: Antonia Blanton on 12/21/2017 1:25 PM Electronically signed by: Valencia Petersen DPM 12/27/2017 1:24 PM
== END 2017-12-20 07:30 | disposition short-term general hospital (02) | DRG 885 ==
LOC: H.ER 12:33 → H.ERHOLD 15:36 → H.STEP 17:39
PROVIDERS: ADMIT Psychiatry & Neurology Psychiatry; ATTEND Psychiatry & Neurology Psychiatry
PROC: GZHZZZZ Group Psychotherapy (ICD-10-PCS; principal; 2017-11-17)
PROC: 0HBNXZZ Excision of Left Foot Skin, External Approach (ICD-10-PCS; 2017-12-15)
DX: F25.9 Schizoaffective disorder, unspecified (principal); E11.40 Type 2 diabetes mellitus with diabetic neuropathy, unspecified; G30.9 Alzheimer's disease, unspecified; F02.80 Dementia in other diseases classified elsewhere, unspecified severity, without behavioral disturbance, psychotic disturbance, mood disturbance, and anxiety; Z91.83 Wandering in diseases classified elsewhere; Z91.14 Patient's other noncompliance with medication regimen; Z91.19 Patient's noncompliance with other medical treatment and regimen; E11.65 Type 2 diabetes mellitus with hyperglycemia; I25.10 Atherosclerotic heart disease of native coronary artery without angina pectoris; E03.9 Hypothyroidism, unspecified; Z87.891 Personal history of nicotine dependence; B35.1 Tinea unguium; Q66.7 Congenital pes cavus; R41.82 Altered mental status, unspecified; L85.9 Epidermal thickening, unspecified

== ENCOUNTER 2017-12-20 20:05 | Inpatient (IN) | payer MEDICARE, OTHER ==
[2017-12-20 20:05] VITALS: BMI 22.6
[2017-12-20] MEDS ORDERED: Piperacillin/Tazobact 3.375 GM in Sodium Chloride 0.9% 100 ML IV STA (20:38)
[2017-12-20] MEDS ORDERED: Vancomycin 1 GM in Sodium Chloride 0.9% 100 ML IVPB SCH (21:00)
[2017-12-20] MEDS ORDERED: Albuterol-Ipratrop 3 mg / 0.5 (3 ml) UD INH STA ×3 (21:05→21:26)
[2017-12-20] MEDS ORDERED: Piperacillin/Tazobact 3.375 gm Inj IVPB ONE (21:08)
[2017-12-20 21:11] LABS: BASO # 0.1 K/uL (0.0-0.2); BASO % 0.6 % (0.0-2.0); EOS % 0.3 % (0.0-4.0); LYMPH # 0.4 K/uL (1.0-4.3); LYMPH % 3.1 % (20.0-40.0); MEAN CELL VOLUME 90.5 fl (80.0-94.0); MEAN CORPUSCULAR HEMOGLOBIN 30.6 pg (27.0-31.0); MEAN CORPUSCULAR HGB CONC 33.8 g/dL (33.0-37.0); MONO # 0.4 K/uL (0.0-0.8); MONO % 3.1 % (0.0-10.0); NEUT # 13.1 K/uL (1.8-7.0); NEUT % 92.9 % (50.0-75.0); NRBC % 0.1 % (0.0-0.0); PLATELET COUNT 167 K/uL (130-400); RBC 4.57 Mil/uL (4.40-5.90); WHITE BLOOD COUNT 14.1 K/uL (4.8-10.8)
[2017-12-20 21:30] LABS: ALB/GLOB RATIO 0.9 (1.0-2.1); ALBUMIN 3.7 g/dL (3.5-5.0); ALT/SGPT 26 U/L (21-72); AST/SGOT 28 U/L (17-59); BLOOD UREA NITROGEN 20 mg/dl (9-20); CALCIUM 8.7 mg/dL (8.4-10.2); GFR NON-AFRICAN AMERICAN > 60
--- NOTE | 2017-12-20 21:38 | ED PDOC ---
HPI: Altered Mental Status Time Seen by Provider: 12/20/17 20:07 Chief Complaint (Nursing): Altered Mental Status Chief Complaint (Provider): Altered mental status History Per: Other (MEDICAL RECORDS AUDITOR called) Additional Complaint(s): 72yo male, history of schizoaffective disorder, bipolar disorder, dementia, and diabetes, brought to ER as a MEDICAL RECORDS AUDITOR. Patient was in geropysch x 1 month and had an MEDICAL RECORDS AUDITOR called today due to respiratory distress. Patient noted to be febrile, tachypneic and hypoxic. Patient referred to ED for further evaluation and possible workup for pneumonia. A HPI and ROS is limited from the patient due to his clinical condition. Past Medical History Reviewed: Historical Data, Nursing Documentation, Vital Signs Vital Signs: Last Vital Signs Temp 103.1 F H 12/20/17 20:30 Pulse 111 H 12/20/17 20:10 Resp 20 12/20/17 20:10 BP 141/68 12/20/17 20:10 Pulse Ox 96 12/20/17 20:10 - Medical History PMH: Alzheimer's Disease, Bipolar Disorder, Dementia, Diabetes, Schizophrenia Denies: Hepatitis, HIV, HTN, Chronic Kidney Disease, Seizures, Sexually Transmitted Disease - Family History Family History: States: Unknown Family Hx - Home Medications Home Medications: Ambulatory Orders Medication Instructions Recorded Azithromycin [Zithromax] 500 mg PO DAILY #5 tablet 05/04/17 OLANZapine [ZyPREXA] 5 mg PO HS #30 tab 05/04/17 RX: Aspirin [Aspirin Chewable] 81 mg PO DAILY #30 chew 05/04/17 RX: GlipiZIDE [Glucotrol] 10 mg PO BIDAC #60 tab 05/04/17 RX: SITagliptin [Januvia] 100 mg PO DAILY #30 tab 05/04/17 RX: metFORMIN [glucOPHAGE] 500 mg PO BIDWM #60 tab 05/04/17 RX: Multivitamin [Daily Value] 1 each PO QAM #30 tablet 06/04/17 - Allergies Allergies/Adverse Reactions: Allergies Allergy/AdvReac Type Severity Reaction Status Date / Time No Known Allergies Allergy Verified 11/17/17 12:42 Review of Systems Review Of Systems: ROS cannot be obtained secondary to pt's inabilty to answer questions. Constitutional: Positive for: Fever Respiratory: Positive for: Other (tachypneic) Physical Exam - Reviewed Nursing Documentation Reviewed: Yes Vital Signs Reviewed: Yes - Physical Exam Appears: Positive for: No Acute Distress Head Exam: Positive for: ATRAUMATIC, NORMAL INSPECTION, NORMOCEPHALIC Skin: Positive for: Normal Color Eye Exam: Positive for: Normal appearance Neck: Positive for: Normal, Supple Cardiovascular/Chest: Positive for: Tachycardia Respiratory: Positive for: Decreased Breath Sounds, Other (tachypneix) Gastrointestinal/Abdominal: Positive for: Normal Exam, Soft Back: Positive for: Normal Inspection Extremity: Positive for: Normal ROM. Negative for: Pedal Edema Neurologic/Psych: Negative for: Motor/Sensory Deficits - Laboratory Results Result Diagrams: 12/20/17 21:03 12/20/17 21:03 - ECG O2 Sat by Pulse Oximetry: 96 (RA) Pulse Ox Interpretation: Normal Medical Decision Making Medical Decision Making: Impression: 72yo male, workup for pneumonia Plan: -- Labs -- Chest x-ray 22:30 Labs reviewed, significant for leukocytosis. Lactate normal. Chest x-ray reviewed, with increased marking bilaterally. Patient to be admitted for pneumonia. Case referred to Dr. Alvarez. -Spoke with Dr. Alvarez Scribe Attestation: Documented by Dior Sheffield, acting as a scribe for Dimitry Yoon MD. Provider Scribe Attestation: All medical record entries made by the Scribe were at my direction and personally dictated by me. I have reviewed the chart and agree that the record accurately reflects my personal performance of the history, physical exam, medical decision making, and the department course for this patient. I have also personally directed, reviewed, and agree with the discharge instructions and disposition. Disposition - Clinical Impression Clinical Impression: Pneumonia, Dehydration - Patient ED Disposition Is Patient to be Admitted: Yes Discussed With : Agustin Alvarez - Disposition Disposition Time: 22:31 Condition: FAIR - Pt Status Changed To: Hospital Disposition Of: Inpatient - Admit Certification Admit to Inpatient:: After my assessment, the patient will require hospitalization for at least two midnights. This is because of the severity of symptoms shown, intensity of services needed, and/or the medical risk in this patient being treated as an outpatient.
[2017-12-20 21:41] LABS: B-TYPE NATRIURETIC PEPTIDE 74.3 pg/ml (0-900)
[2017-12-20 22:23] LABS: BANDS 3 % (0-2); BASOPHIL 1 % (0-2); LYMPHOCYTE 8 % (20-50); MONOCYTE 4 % (0-10); NEUTROPHIL 84 % (42-75); TOTAL CELLS COUNTED 100
[2017-12-20 22:24] LABS: PLATELET ESTIMATE NORMAL (NORMAL)
[2017-12-20 22:25] LABS: TOXIC GRANULATION PRESENT
[2017-12-20] MEDS ORDERED: Sodium Chloride 0.9% 1,000 ML IV STA ×2 (22:28)
[2017-12-20] MEDS ORDERED: Vancomycin 1 g Inj ONE (22:46)
--- NOTE | 2017-12-21 07:40 | CP.PCM.HP ---
<Sultan Edinson - Last Filed: 12/21/17 09:54> History of Present Illness - History of Present Illness History of Present Illness: History taken from patient and review of his medical records 72 year old male with a PMHx of schizoaffective disorder, dementia and DM admitted yesterday for suspected sepsis likely secondary to pneumonia. Patient was in GeroPsych unit since 11/17/17 and POLYTECHNIC REGISTRAR was called yesterday due to new onset AMS with fever, tachypnea and pulse ox of 91% with 5 L oxygen. Patient was sent to ED for further evaluation. In ED, patient was febrile, tachycardiac and elevated WBC with left shift. Patient reports he has productive cough for 3 days associated with fever and chills last night. Denies chest pain, dyspnea, GI or complaints. This morning, patient seen and examined with Dr. Alvarez. Reports cough and chills. No other complaints. Present on Admission - Present on Admission Any Indicators Present on Admission: No Review of Systems - Review of Systems All systems: reviewed and no additional remarkable complaints except Past Patient History - Past Medical History & Family History Past Medical History?: Yes - Past Social History Smoking Status: Former Smoker - CARDIAC Hx Hypertension: No - PULMONARY Hx Respiratory Disorders: No Hx Tuberculosis: No - NEUROLOGICAL Hx Alzheimer's Disease: Yes Hx Dementia: Yes Hx Seizures: No - HEENT Hx HEENT Problems: No - RENAL Hx Chronic Kidney Disease: No - ENDOCRINE/METABOLIC Hx Diabetes Mellitus Type 2: Yes - HEMATOLOGICAL/ONCOLOGICAL Hx Human Immunodeficiency Virus (HIV): No - INTEGUMENTARY Hx Dermatological Problems: No - MUSCULOSKELETAL/RHEUMATOLOGICAL Hx Musculoskeletal Disorders: Yes Hx Falls: Yes - GASTROINTESTINAL Hx Gastrointestinal Disorders: No - GENITOURINARY/GYNECOLOGICAL Hx Sexually Transmitted Disorders: No - PSYCHIATRIC Hx Bipolar Disorder: Yes Hx Schizophrenia: Yes - SURGICAL HISTORY Hx Surgeries: Yes Other/Comment: stated had surgery for nosebleeding - ANESTHESIA Hx Anesthesia: No Hx Anesthesia Reactions: No Hx Malignant Hyperthermia: No Meds Allergies/Adverse Reactions: Allergies Allergy/AdvReac Type Severity Reaction Status Date / Time No Known Allergies Allergy Verified 11/17/17 12:42 Physical Exam - Constitutional Appears: No Acute Distress, Unkempt Additional comments: shaking chills at times - Head Exam Head Exam: NORMAL INSPECTION - Eye Exam Eye Exam: Normal appearance - ENT Exam ENT Exam: Mucous Membranes Moist - Respiratory Exam Respiratory Exam: Decreased Breath Sounds, Rales (on right lung field), NORMAL BREATHING PATTERN. absent: Accessory Muscle Use, Wheezes, Respiratory Distress - Cardiovascular Exam Cardiovascular Exam: Tachycardia, +S1, +S2 - GI/Abdominal Exam GI & Abdominal Exam: Normal Bowel Sounds, Soft. absent: Tenderness - Extremities Exam Extremities exam: Positive for: normal inspection, pedal pulses present. Negative for: calf tenderness, pedal edema - Back Exam Back exam: absent: CVA tenderness (L), CVA tenderness (R) - Neurological Exam Neurological exam: Alert, Oriented x3 - Psychiatric Exam Psychiatric exam: Normal Affect - Skin Skin Exam: Normal Color, Warm Results - Vital Signs Recent Vital Signs: Last Vital Signs Temp 98.4 F 12/21/17 05:18 Pulse 97 H 12/21/17 05:18 Resp 18 12/21/17 05:18 BP 98/54 L 12/21/17 05:18 Pulse Ox 94 L 12/21/17 05:18 - Labs Result Diagrams: 12/20/17 21:03 12/20/17 21:03 Labs: Laboratory Results - last 24 hr 12/20/17 12/20/17 12/20/17 20:29 21:03 21:03 WBC 14.1 H RBC 4.57 Hgb 14.0 Hct 41.4 MCV 90.5 MCH 30.6 MCHC 33.8 RDW 14.0 Plt Count 167 MPV 10.0 Neut % (Auto) 92.9 H Lymph % (Auto) 3.1 L Sab[place] % (Auto) 3.1 Eos % (Auto) 0.3 Baso % (Auto) 0.6 Neut # (Auto) 13.1 H Lymph # (Auto) 0.4 L [place] # (Auto) 0.4 Eos # (Auto) 0.0 Baso # (Auto) 0.1 Neutrophils % (Manual) 84 H Band Neutrophils % 3 H Lymphocytes % (Manual) 8 L Monocytes % (Manual) 4 Basophils % (Manual) 1 Toxic Granulation Present Platelet Estimate Normal Macrocytosis (manual) Slight Sodium 137 Potassium 3.8 Chloride 101 Carbon Dioxide 27 Anion Gap 13 BUN 20 Creatinine 0.6 L Est GFR ( Amer) > 60 Est GFR (Non-Af Amer) > 60 POC Glucose (mg/dL) 157 H Random Glucose 157 H Lactic Acid Calcium 8.7 Total Bilirubin 1.3 AST 28 ALT 26 Alkaline Phosphatase 106 Troponin I < 0.0120 NT-Pro-B Natriuret Pep 74.3 Total Protein 7.6 Albumin 3.7 Globulin 3.9 Albumin/Globulin Ratio 0.9 L 12/20/17 12/21/17 21:03 04:06 WBC RBC Hgb Hct MCV MCH MCHC RDW Plt Count MPV Neut % (Auto) Lymph % (Auto) Sab[place] % (Auto) Eos % (Auto) Baso % (Auto) Neut # (Auto) Lymph # (Auto) Sab[place] # (Auto) Eos # (Auto) Baso # (Auto) Neutrophils % (Manual) Band Neutrophils % Lymphocytes % (Manual) Monocytes % (Manual) Basophils % (Manual) Toxic Granulation Platelet Estimate Macrocytosis (manual) Sodium Potassium Chloride Carbon Dioxide Anion Gap BUN Creatinine Est GFR ( Amer) Est GFR (Non-Af Amer) POC Glucose (mg/dL) 246 H Random Glucose Lactic Acid 0.8 Calcium Total Bilirubin AST ALT Alkaline Phosphatase Troponin I NT-Pro-B Natriuret Pep Total Protein Albumin Globulin Albumin/Globulin Ratio Assessment & Plan - Assessment and Plan (Free Text) Assessment: 72 year old male with a PMHx of schizoaffective disorder, dementia and DM admitted yesterday for suspected sepsis likely secondary to pneumonia Plan: Start vancomycin 1 gm q12 hr c/w Zosyn 3.375 gm q8 hrs IV fluids 150 cc/hr, received 2 L NS in ED Dueneb Resume rest of patients medications F/U blood cx and urine cx F/U CT chest f/u AM labs Rest of the plan as ordered Patient seen, examined and plan d/w Dr. Kim Neves, [id number] <Agustin Alvarez - Last Filed: 12/26/17 03:17> Results - Vital Signs Recent Vital Signs: Last Vital Signs Temp 98 F 12/26/17 00:07 Pulse 125 H 12/26/17 00:07 Resp 20 12/26/17 00:07 BP 130/71 12/26/17 00:07 Pulse Ox 95 12/26/17 00:07 - Labs Result Diagrams: 12/24/17 12:00 12/24/17 12:00 Labs: Laboratory Results - last 24 hr 12/25/17 12/25/17 12/25/17 04:27 10:31 11:21 POC Glucose (mg/dL) 233 H 238 H Influenza Typ A,B (EIA) Negative for flu a/b Ur L.pneumophila Ag 12/25/17 12/25/17 14:24 16:14 POC Glucose (mg/dL) 216 H Influenza Typ A,B (EIA) Ur L.pneumophila Ag Negative Assessment & Plan - Assessment and Plan (Free Text) Assessment: Patient was personally seen and examined by me in rounds with residents. Available labs and diagnostic data reviewed. Case, Patient's condition and management plan discussed with residents in rounds. Agree with resident's progress note. Plan: As ordered.
[2017-12-21] MEDS ORDERED: Sodium Chloride 0.9% 1,000 ML IV SCH ×2 (07:45→08:48)
--- NOTE | 2017-12-21 09:40 | RAD ---
Date of service: 12/20/2017 HISTORY: SOB COMPARISON: Chest radiographs 08/30/2017. FINDINGS: LUNGS: Patient rotated toward the left accentuating the right hilar vascular markings. No definite acute airspace disease appreciable bilaterally. PLEURA: No pleural effusion or pneumothorax bilaterally. CARDIOVASCULAR: Normal. OSSEOUS STRUCTURES: No significant abnormalities. VISUALIZED UPPER ABDOMEN: Normal. OTHER FINDINGS: None. IMPRESSION: No interval acute cardiopulmonary disease appreciated.
--- NOTE | 2017-12-21 09:55 | CARD ---
APPROVED REPORT Date of service: 12/20/2017 EKG Measurement Heart [id number] <Conclusion> Sinus tachycardia Otherwise normal ECG
[2017-12-21] MEDS: Piperacillin/Tazobact 3.375 GM in Sodium Chloride 0.9% 100 ML IVPB SCH ×2 (10:48→17:34)
[2017-12-21] MEDS: Pantoprazole 40 mg EC Tab PO SCH (11:05)
[2017-12-21] MEDS ORDERED: Influenza Vaccine 60 MCG/0.5 ML SYR (3 yr & up) IM ONE (11:38)
[2017-12-21] MEDS ORDERED: Pneumococcal 23-Valent Vaccine IM ONE (11:38)
[2017-12-21] MEDS ORDERED: Albuterol-Ipratrop 3 mg / 0.5 (3 ml) UD INH PRN (12:41)
[2017-12-21] MEDS: Albuterol-Ipratrop 3 mg / 0.5 (3 ml) UD INH SCH ×2 (13:56→19:49)
[2017-12-21] MEDS: guaiFENesin-DM 600-30 mg ER Tab PO SCH ×2 (14:10→17:32)
[2017-12-21] MEDS: Sodium Chloride 0.9% 1,000 ML IV SCH ×2 (16:40→22:41)
--- NOTE | 2017-12-21 16:45 | CT ---
Date of service: 12/21/2017 PROCEDURE: CT Chest without contrast HISTORY: sepsis secondary to pneumonia COMPARISON: None available. TECHNIQUE: Contiguous axial images were obtained through the chest without intravenous contrast enhancement. Sagittal and coronal reconstructions were performed. Radiation dose (DLP): 471.86 mGy-cm. This CT exam was performed using one or more of the following dose reduction techniques: Automated exposure control, adjustment of the mA and/or kV according to patient size, and/or use of iterative reconstruction technique. FINDINGS: LUNGS: Bilateral lower lobe infiltrates. Infiltrate in apical posterior segment of left upper lobe. No pulmonary mass. MEDIASTINUM: Unremarkable thoracic aorta. No aneurysm. Normal sized heart. Main pulmonary artery unremarkable. No vascular congestion. No lymphadenopathy. PLEURA: No pleural fluid. No pneumothorax. BONES: No acute fracture. There is a heterogeneously sclerotic lesion in the body of the T5 vertebra which has a sharp zone of transition and a nonaggressive appearance. There is no expansion or cortical disruption. There is no associated soft tissue mass. Possible fibrous dysplasia. No other sclerotic or lytic osseous lesion elsewhere. There is an old healed fracture of the right 7th rib laterally. UPPER ABDOMEN: Grossly unremarkable. OTHER FINDINGS: None. IMPRESSION: Multi lobar infiltrate involving right and left lower lobe and apical posterior segment of left upper lobe. No pleural effusion. Incidental nonaggressive sclerotic lesion in T5 vertebra. See above.
[2017-12-21 18:16] LABS: ABG ALLEN TEST YES; ARTERIAL BLOOD GAS HCO3 25.3 mmol/L (21-28); ARTERIAL BLOOD GAS HEMOGLOBIN 11.9 g/dL (11.7-17.4); ARTERIAL BLOOD GAS O2 CAPACITY 16.2 mL/dL (16-24); ARTERIAL BLOOD GAS O2 SAT 92.6 % (95-98); ARTERIAL BLOOD GAS PCO2 34 mm/Hg (35-45); ARTERIAL BLOOD GAS PH 7.46 (7.35-7.45); ARTERIAL BLOOD GAS PO2 51 mm/Hg (80-100); ARTERIAL BLOOD GAS TCO2 25.2 mmol/L (22-28)
--- NOTE | 2017-12-21 18:18 | CP.PCM.CON ---
History of Present Illness - History of Present Illness History of Present Illness: Consulation for evaluation of CAD / episode of tachycardia noted HPI: History taken from patient and review of his medical records 72 year old male with a PMHx of CAD, schizoaffective disorder, dementia and DM admitted yesterday for suspected sepsis likely secondary to pneumonia. Patient was in GeroPsych unit since 11/17/17 and RN HOUSE SUPERVISOR was called yesterday due to new onset AMS with fever, tachypnea and pulse ox of 91% with 5 L oxygen. Patient was sent to ED for further evaluation. In ED, patient was febrile, tachycardiac and elevated WBC with left shift. Patient reports he has productive cough for 3 days associated with fever and chills last night. Denies chest pain, dyspnea, GI or complaints. Review of Systems - Review of Systems Systems not reviewed;Unavailable: Acuity of Condition - Constitutional Constitutional: As Per HPI - EENT Eyes: As Per HPI Ears: As Per HPI Nose/Mouth/Throat: As Per HPI - Cardiovascular Cardiovascular: As Per HPI - Respiratory Respiratory: As Per HPI - Gastrointestinal Gastrointestinal: As Per HPI - Genitourinary Genitourinary: As Per HPI - Reproductive: Male Reproductive:Male: As Per HPI - Musculoskeletal Musculoskeletal: As Per HPI - Integumentary Integumentary: As Per HPI - Neurological Neurological: As Per HPI - Psychiatric Psychiatric: As Per HPI - Endocrine Endocrine: As Per HPI - Hematologic/Lymphatic Hematologic: As Per HPI Past Patient History - Past Medical History & Family History Past Medical History?: Yes - Past Social History Smoking Status: Former Smoker - CARDIAC Hx Hypertension: No - PULMONARY Hx Respiratory Disorders: No Hx Tuberculosis: No - NEUROLOGICAL Hx Alzheimer's Disease: Yes Hx Dementia: Yes Hx Seizures: No - HEENT Hx HEENT Problems: No - RENAL Hx Chronic Kidney Disease: No - ENDOCRINE/METABOLIC Hx Diabetes Mellitus Type 2: Yes - HEMATOLOGICAL/ONCOLOGICAL Hx Human Immunodeficiency Virus (HIV): No - INTEGUMENTARY Hx Dermatological Problems: No - MUSCULOSKELETAL/RHEUMATOLOGICAL Hx Musculoskeletal Disorders: Yes Hx Falls: Yes - GASTROINTESTINAL Hx Gastrointestinal Disorders: No - GENITOURINARY/GYNECOLOGICAL Hx Sexually Transmitted Disorders: No - PSYCHIATRIC Hx Bipolar Disorder: Yes Hx Schizophrenia: Yes - SURGICAL HISTORY Hx Surgeries: Yes Other/Comment: stated had surgery for nosebleeding - ANESTHESIA Hx Anesthesia: No Hx Anesthesia Reactions: No Hx Malignant Hyperthermia: No Meds Allergies/Adverse Reactions: Allergies Allergy/AdvReac Type Severity Reaction Status Date / Time No Known Allergies Allergy Verified 11/17/17 12:42 - Medications Medications: Current Medications Acetaminophen (Tylenol 325mg Tab) 650 mg PO Q6 PRN PRN Reason: Fever >100.4 F Albuterol/Ipratropium (Duoneb 3 Mg/0.5 Mg (3 Ml) Ud) 3 ml INH RQ6 BEL Last Admin: 12/21/17 13:56 Dose: 3 ml Albuterol/Ipratropium (Duoneb 3 Mg/0.5 Mg (3 Ml) Ud) 3 ml INH RQ6 PRN PRN Reason: Shortness of Breath Aspirin (Aspirin Chewable) 81 mg PO DAILY [facility] Last Admin: 12/21/17 10:51 Dose: 81 mg Glipizide (Glucotrol) 10 mg PO DAILY [facility] Last Admin: 12/21/17 10:52 Dose: 10 mg Guaifenesin/Dextromethorphan (Mucinex-Dm 600-30 Mg) 1 tab PO BID [facility] Last Admin: 12/21/17 17:32 Dose: 1 tab Vancomycin HCl 1 gm/ Sodium (Chloride) 250 mls @ 166.667 mls/hr IVPB STAT [facility]; Protocol Last Admin: 12/21/17 10:49 Dose: 166.667 mls/hr Vancomycin HCl 1 gm/ Sodium (Chloride) 250 mls @ 166.667 mls/hr IVPB Q12 [facility]; Protocol Last Admin: 12/21/17 11:08 Dose: Not Given Piperacillin Sod/Tazobactam (Sod 3.375 gm/ Sodium Chloride) 100 mls @ 100 mls/hr IVPB Q8 [facility]; Protocol Last Admin: 12/21/17 17:34 Dose: 100 mls/hr Sodium Chloride (Sodium Chloride 0.9%) 1,000 mls @ 175 mls/hr IV .Q5H43M [facility] Last Admin: 12/21/17 16:40 Dose: 175 mls/hr Levothyroxine Sodium (Synthroid) 25 mcg PO DAILY@0630 [facility] Lorazepam (Ativan) 1 mg PO HS PRN PRN Reason: Anxiety Ondansetron HCl (Zofran Inj) 4 mg IVP Q6 PRN PRN Reason: Nausea/Vomiting Pantoprazole Sodium (Protonix Ec Tab) 40 mg PO DAILY [facility] Last Admin: 12/21/17 11:05 Dose: 40 mg Risperidone (Risperdal Tab) 2 mg PO Q12 [facility] Last Admin: 12/21/17 10:51 Dose: 2 mg Sitagliptin Phosphate (Januvia) 100 mg PO DAILY [facility] Last Admin: 12/21/17 10:52 Dose: 100 mg Trazodone HCl (Desyrel) 50 mg PO HS PRN PRN Reason: Insomnia Physical Exam - Constitutional Appears: In Acute Distress - Head Exam Head Exam: ATRAUMATIC, NORMAL INSPECTION, NORMOCEPHALIC - Eye Exam Eye Exam: EOMI, Normal appearance, PERRL Pupil Exam: NORMAL ACCOMODATION, PERRL - ENT Exam ENT Exam: Mucous Membranes Moist, Normal Exam - Neck Exam Neck exam: Positive for: Normal Inspection - Respiratory Exam Respiratory Exam: Clear to Auscultation Bilateral, NORMAL BREATHING PATTERN - Cardiovascular Exam Cardiovascular Exam: REGULAR RHYTHM, RRR, +S1, +S2, Systolic Murmur - GI/Abdominal Exam GI & Abdominal Exam: Normal Bowel Sounds, Soft. absent: Tenderness - Extremities Exam Extremities exam: Positive for: normal inspection - Back Exam Back exam: NORMAL INSPECTION - Neurological Exam Neurological exam: Alert, CN II-XII Intact, Normal Gait, Oriented x3, Reflexes Normal - Psychiatric Exam Psychiatric exam: Normal Affect, Normal Mood - Skin Skin Exam: Dry, Intact, Normal Color, Warm Results - Vital Signs Recent Vital Signs: Last Vital Signs Temp 97.3 F L 12/21/17 16:03 Pulse 112 H 12/21/17 16:03 Resp 18 12/21/17 16:03 BP 105/53 L 12/21/17 16:03 Pulse Ox 95 12/21/17 16:03 - Labs Result Diagrams: 12/26/17 09:31 12/26/17 04:30 Labs: Laboratory Results - last 24 hr 12/20/17 12/20/17 12/20/17 20:29 21:03 21:03 WBC 14.1 H RBC 4.57 Hgb 14.0 Hct 41.4 MCV 90.5 MCH 30.6 MCHC 33.8 RDW 14.0 Plt Count 167 MPV 10.0 Neut % (Auto) 92.9 H Lymph % (Auto) 3.1 L Bowman % (Auto) 3.1 Eos % (Auto) 0.3 Baso % (Auto) 0.6 Neut # (Auto) 13.1 H Lymph # (Auto) 0.4 L Bowman # (Auto) 0.4 Eos # (Auto) 0.0 Baso # (Auto) 0.1 Neutrophils % (Manual) 84 H Band Neutrophils % 3 H Lymphocytes % (Manual) 8 L Monocytes % (Manual) 4 Basophils % (Manual) 1 Toxic Granulation Present Platelet Estimate Normal Macrocytosis (manual) Slight Sodium 137 Potassium 3.8 Chloride 101 Carbon Dioxide 27 Anion Gap 13 BUN 20 Creatinine 0.6 L Est GFR ( Amer) > 60 Est GFR (Non-Af Amer) > 60 POC Glucose (mg/dL) 157 H Random Glucose 157 H Lactic Acid Calcium 8.7 Total Bilirubin 1.3 AST 28 ALT 26 Alkaline Phosphatase 106 Troponin I < 0.0120 NT-Pro-B Natriuret Pep 74.3 Total Protein 7.6 Albumin 3.7 Globulin 3.9 Albumin/Globulin Ratio 0.9 L 12/20/17 12/21/17 21:03 04:06 WBC RBC Hgb Hct MCV MCH MCHC RDW Plt Count MPV Neut % (Auto) Lymph % (Auto) Bowman % (Auto) Eos % (Auto) Baso % (Auto) Neut # (Auto) Lymph # (Auto) [place] # (Auto) Eos # (Auto) Baso # (Auto) Neutrophils % (Manual) Band Neutrophils % Lymphocytes % (Manual) Monocytes % (Manual) Basophils % (Manual) Toxic Granulation Platelet Estimate Macrocytosis (manual) Sodium Potassium Chloride Carbon Dioxide Anion Gap BUN Creatinine Est GFR ( Amer) Est GFR (Non-Af Amer) POC Glucose (mg/dL) 246 H Random Glucose Lactic Acid 0.8 Calcium Total Bilirubin AST ALT Alkaline Phosphatase Troponin I NT-Pro-B Natriuret Pep Total Protein Albumin Globulin Albumin/Globulin Ratio Assessment & Plan (1) Tachycardia Assessment and Plan: etiology ? infx vs sepsis echo IVF hydration Abx Status: Acute (2) Dehydration Status: Acute (3) Pneumonia Assessment and Plan: abx Status: Acute (4) Fever of unknown origin Status: Acute (5) Leukocytosis Status: Acute (6) Syncope Status: Resolved (7) CAD (coronary artery disease) Status: Acute
[2017-12-22] MEDS: Piperacillin/Tazobact 3.375 GM in Sodium Chloride 0.9% 100 ML IVPB SCH ×3 (00:58→16:16)
[2017-12-22] MEDS: Albuterol-Ipratrop 3 mg / 0.5 (3 ml) UD INH SCH ×4 (01:47→19:00)
[2017-12-22] MEDS: Sodium Chloride 0.9% 1,000 ML IV SCH ×2 (04:51→23:41)
[2017-12-22] MEDS: Levothyroxine 25 MCG TAB PO SCH (06:08)
[2017-12-22 07:06] LABS: HEMOGLOBIN 11.1 g/dL (12.0-18.0); MEAN CELL VOLUME 89.6 fl (80.0-94.0); MEAN CORPUSCULAR HEMOGLOBIN 30.5 pg (27.0-31.0); MEAN CORPUSCULAR HGB CONC 34.1 g/dL (33.0-37.0); RBC 3.62 Mil/uL (4.40-5.90); RED CELL DISTRIBUTION WIDTH 14.3 % (11.5-14.5); WHITE BLOOD COUNT 12.1 K/uL (4.8-10.8)
[2017-12-22 07:15] LABS: BLOOD UREA NITROGEN 18 mg/dl (9-20); CALCIUM 7.9 mg/dL (8.4-10.2); GFR NON-AFRICAN AMERICAN > 60
[2017-12-22] MEDS: guaiFENesin-DM 600-30 mg ER Tab PO SCH ×2 (09:19→16:16)
--- NOTE | 2017-12-22 11:49 | CP.PCM.CON ---
History of Present Illness - History of Present Illness History of Present Illness: 72 year old male with a PMHx of schizoaffective disorder, dementia and DM admitted yesterday for suspected sepsis likely secondary to pneumonia. Patient was in GeroPsych unit since 11/17/17 and OFFICE MACHINE TECHNICIAN was called due to new onset AMS on evaluation, pt is calm cooperative , reported mood is fine, constricted affect, underproductive speech, concrete thought process, denied any current perceptual disturbances, non elicited, denied suicidal or homicidal ideation alert awake , oriented to person and partially to place Past Patient History - Past Medical History & Family History Past Medical History?: Yes - Past Social History Smoking Status: Former Smoker - CARDIAC Hx Hypertension: No - PULMONARY Hx Respiratory Disorders: No Hx Tuberculosis: No - NEUROLOGICAL Hx Alzheimer's Disease: Yes Hx Dementia: Yes Hx Seizures: No - HEENT Hx HEENT Problems: No - RENAL Hx Chronic Kidney Disease: No - ENDOCRINE/METABOLIC Hx Diabetes Mellitus Type 2: Yes - HEMATOLOGICAL/ONCOLOGICAL Hx Human Immunodeficiency Virus (HIV): No - INTEGUMENTARY Hx Dermatological Problems: No - MUSCULOSKELETAL/RHEUMATOLOGICAL Hx Musculoskeletal Disorders: Yes Hx Falls: Yes - GASTROINTESTINAL Hx Gastrointestinal Disorders: No - GENITOURINARY/GYNECOLOGICAL Hx Sexually Transmitted Disorders: No - PSYCHIATRIC Hx Bipolar Disorder: Yes Hx Schizophrenia: Yes - SURGICAL HISTORY Hx Surgeries: Yes Other/Comment: stated had surgery for nosebleeding - ANESTHESIA Hx Anesthesia: No Hx Anesthesia Reactions: No Hx Malignant Hyperthermia: No Meds Allergies/Adverse Reactions: Allergies Allergy/AdvReac Type Severity Reaction Status Date / Time No Known Allergies Allergy Verified 11/17/17 12:42 - Medications Medications: Current Medications Acetaminophen (Tylenol 325mg Tab) 650 mg PO Q6 PRN PRN Reason: Fever >100.4 F Last Admin: 12/22/17 04:20 Dose: 650 mg Albuterol/Ipratropium (Duoneb 3 Mg/0.5 Mg (3 Ml) Ud) 3 ml INH RQ6 BEL Last Admin: 12/22/17 07:11 Dose: 3 ml Albuterol/Ipratropium (Duoneb 3 Mg/0.5 Mg (3 Ml) Ud) 3 ml INH RQ6 PRN PRN Reason: Shortness of Breath Aspirin (Aspirin Chewable) 81 mg PO DAILY [facility] Last Admin: 12/22/17 09:19 Dose: 81 mg Glipizide (Glucotrol) 10 mg PO DAILY [facility] Last Admin: 12/22/17 09:19 Dose: 10 mg Guaifenesin/Dextromethorphan (Mucinex-Dm 600-30 Mg) 1 tab PO BID [facility] Last Admin: 12/22/17 09:19 Dose: 1 tab Vancomycin HCl 1 gm/ Sodium (Chloride) 250 mls @ 166.667 mls/hr IVPB STAT [facility]; Protocol Last Admin: 12/22/17 09:21 Dose: 166.667 mls/hr Vancomycin HCl 1 gm/ Sodium (Chloride) 250 mls @ 166.667 mls/hr IVPB Q12 [facility]; Protocol Last Admin: 12/21/17 21:15 Dose: 166.667 mls/hr Piperacillin Sod/Tazobactam (Sod 3.375 gm/ Sodium Chloride) 100 mls @ 100 mls/hr IVPB Q8 [facility]; Protocol Last Admin: 12/22/17 09:20 Dose: 100 mls/hr Sodium Chloride (Sodium Chloride 0.9%) 1,000 mls @ 175 mls/hr IV .Q5H43M [facility] Last Admin: 12/22/17 04:51 Dose: Not Given Levothyroxine Sodium (Synthroid) 25 mcg PO DAILY@0630 [facility] Last Admin: 12/22/17 06:08 Dose: 25 mcg Lorazepam (Ativan) 1 mg PO HS PRN PRN Reason: Anxiety Ondansetron HCl (Zofran Inj) 4 mg IVP Q6 PRN PRN Reason: Nausea/Vomiting Pantoprazole Sodium (Protonix Ec Tab) 40 mg PO DAILY [facility] Last Admin: 12/21/17 11:05 Dose: 40 mg Risperidone (Risperdal Tab) 2 mg PO Q12 [facility] Last Admin: 12/22/17 09:19 Dose: 2 mg Sitagliptin Phosphate (Januvia) 100 mg PO DAILY [facility] Last Admin: 12/22/17 09:19 Dose: 100 mg Trazodone HCl (Desyrel) 50 mg PO HS PRN PRN Reason: Insomnia Results - Vital Signs Recent Vital Signs: Last Vital Signs Temp 97.7 F 12/22/17 05:20 Pulse 116 H 12/22/17 04:24 Resp 19 12/22/17 04:24 BP 117/63 12/22/17 04:24 Pulse Ox 96 12/22/17 04:24 - Labs Result Diagrams: 12/22/17 06:30 12/22/17 06:30 Labs: Laboratory Results - last 24 hr 12/21/17 12/21/17 12/22/17 18:07 21:45 05:07 WBC RBC Hgb Hct MCV MCH MCHC RDW Plt Count pCO2 34 L pO2 51 L HCO3 25.3 ABG pH 7.46 H ABG Total CO2 25.2 ABG O2 Saturation 92.6 L ABG O2 Content 15.0 ABG Base Excess 0.7 ABG Hemoglobin 11.9 ABG Carboxyhemoglobin 2.1 H POC ABG HHb (Measured) 7.2 H ABG Methemoglobin 1.0 ABG O2 Capacity 16.2 Tsuhar Test Yes A-a O2 Difference 56.0 Hgb O2 Saturation 89.7 L Vent Mode Room air FiO2 21.0 Sodium Potassium Chloride Carbon Dioxide Anion Gap BUN Creatinine Est GFR ( Amer) Est GFR (Non-Af Amer) POC Glucose (mg/dL) 240 H 175 H Random Glucose Calcium 12/22/17 12/22/17 12/22/17 06:30 06:30 11:31 WBC 12.1 H RBC 3.62 L Hgb 11.1 L D Hct 32.5 L MCV 89.6 MCH 30.5 MCHC 34.1 RDW 14.3 Plt Count 124 L D pCO2 pO2 HCO3 ABG pH ABG Total CO2 ABG O2 Saturation ABG O2 Content ABG Base Excess ABG Hemoglobin ABG Carboxyhemoglobin POC ABG HHb (Measured) ABG Methemoglobin ABG O2 Capacity Tushar Test A-a O2 Difference Hgb O2 Saturation Vent Mode FiO2 Sodium 138 Potassium 3.4 L Chloride 106 Carbon Dioxide 28 Anion Gap 7 L BUN 18 Creatinine 0.6 L Est GFR ( Amer) > 60 Est GFR (Non-Af Amer) > 60 POC Glucose (mg/dL) 247 H Random Glucose 157 H Calcium 7.9 L Assessment & Plan - Assessment and Plan (Free Text) Assessment: schizoaffective disorder Plan: continue with risperidone and trazodone psychiatry to follow up upon medical clearance to evaluate for the need to transfer to [facility] psychiatry
--- NOTE | 2017-12-22 14:30 | PN ---
DATE: 12/22/2017 SUBJECTIVE: The patient is seen and examined. Interim events noted. Consults noted and appreciated. The patient remains in progressive care unit, on telemetry monitoring. The patient feels okay. Denies any chest pain. No shortness of breath, although the patient is not . PHYSICAL EXAMINATION: GENERAL: The patient is in no acute distress. VITAL SIGNS: Stable. HEART EXAM: S1, S2, normal, regular. LUNGS: The patient has occasional crepitations. ABDOMEN: Soft, nontender. EXTREMITIES: No calf swelling. No tenderness. No acute ischemia. OBSTETRICAL NURSE: Exam is essentially unchanged. DIAGNOSTIC DATA: Available diagnostic data reviewed. Telemetry monitoring does not show significant arrhythmia. ASSESSMENT AND PLAN: Overall, the patient is improving. Plan as ordered. Agustin Alvarez MD
[2017-12-23] MEDS: Piperacillin/Tazobact 3.375 GM in Sodium Chloride 0.9% 100 ML IVPB SCH ×3 (01:04→16:38)
[2017-12-23] MEDS: Albuterol-Ipratrop 3 mg / 0.5 (3 ml) UD INH SCH ×4 (02:05→19:15)
[2017-12-23] MEDS: Sodium Chloride 0.9% 1,000 ML IV SCH ×3 (03:08→21:31)
[2017-12-23] MEDS: Levothyroxine 25 MCG TAB PO SCH (06:09)
[2017-12-23 07:08] LABS: HEMOGLOBIN 11.4 g/dL (12.0-18.0); MEAN CELL VOLUME 90.3 fl (80.0-94.0); MEAN CORPUSCULAR HEMOGLOBIN 30.7 pg (27.0-31.0); RBC 3.72 Mil/uL (4.40-5.90); RED CELL DISTRIBUTION WIDTH 14.3 % (11.5-14.5); WHITE BLOOD COUNT 10.1 K/uL (4.8-10.8)
[2017-12-23 07:46] LABS: ALB/GLOB RATIO 0.7 (1.0-2.1); ALBUMIN 2.7 g/dL (3.5-5.0); ALT/SGPT 49 U/L (21-72); AST/SGOT 52 U/L (17-59); BLOOD UREA NITROGEN 13 mg/dl (9-20); CALCIUM 8.2 mg/dL (8.4-10.2); GFR NON-AFRICAN AMERICAN > 60
[2017-12-23] MEDS: Pantoprazole 40 mg EC Tab PO SCH (09:26)
[2017-12-23] MEDS: guaiFENesin-DM 600-30 mg ER Tab PO SCH ×2 (09:26→16:37)
[2017-12-24] MEDS: Piperacillin/Tazobact 3.375 GM in Sodium Chloride 0.9% 100 ML IVPB SCH ×3 (00:43→16:49)
[2017-12-24] MEDS: Albuterol-Ipratrop 3 mg / 0.5 (3 ml) UD INH SCH ×4 (01:01→19:38)
[2017-12-24] MEDS: Levothyroxine 25 MCG TAB PO SCH (06:15)
[2017-12-24] MEDS: Sodium Chloride 0.9% 1,000 ML IV SCH ×2 (06:16→16:50)
--- NOTE | 2017-12-24 09:11 | PN ---
DATE: 12/24/2017 SUBJECTIVE: The patient is seen and examined. Interim events noted. The patient remains in progressive care unit on telemetry monitoring. Feels much better. No coughing. No chest pain. No shortness of breath. PHYSICAL EXAMINATION: GENERAL: The patient is in no acute distress. VITAL SIGNS: Stable. HEART: S1, S2 normal and regular. LUNGS: Good bilateral air exchange. ABDOMEN: Soft, nontender. EXTREMITIES: The patient has chronic on the foot. No edema. No swelling. No tenderness. No acute ischemia. CENTRAL NERVOUS SYSTEM: Essentially unchanged. DIAGNOSTIC DATA: Available diagnostic data reviewed. ASSESSMENT AND PLAN: Overall, the patient's general medical condition is stable. Plan as ordered. Agustin Alvarez MD
[2017-12-24] MEDS: Pantoprazole 40 mg EC Tab PO SCH (09:26)
[2017-12-24] MEDS: guaiFENesin-DM 600-30 mg ER Tab PO SCH ×2 (09:27→16:50)
[2017-12-24 12:15] LABS: HEMOGLOBIN 10.7 g/dL (12.0-18.0); MEAN CELL VOLUME 90.5 fl (80.0-94.0); MEAN CORPUSCULAR HGB CONC 33.2 g/dL (33.0-37.0); RBC 3.58 Mil/uL (4.40-5.90); RED CELL DISTRIBUTION WIDTH 14.4 % (11.5-14.5); WHITE BLOOD COUNT 12.4 K/uL (4.8-10.8)
[2017-12-24 12:30] LABS: BLOOD UREA NITROGEN 13 mg/dl (9-20); CALCIUM 7.7 mg/dL (8.4-10.2); GFR NON-AFRICAN AMERICAN > 60
[2017-12-24] MEDS: Insulin Lispro (humaLOG) 100 Units/ml Inj SC SCH ×2 (16:49→22:00)
[2017-12-25] MEDS: Piperacillin/Tazobact 3.375 GM in Sodium Chloride 0.9% 100 ML IVPB SCH ×3 (00:35→17:16)
[2017-12-25] MEDS: Albuterol-Ipratrop 3 mg / 0.5 (3 ml) UD INH SCH ×4 (01:03→19:52)
[2017-12-25] MEDS: Levothyroxine 25 MCG TAB PO SCH (05:36)
[2017-12-25] MEDS: Sodium Chloride 0.9% 1,000 ML IV SCH ×2 (06:16→13:16)
[2017-12-25] MEDS: Insulin Lispro (humaLOG) 100 Units/ml Inj SC SCH ×4 (06:40→21:29)
[2017-12-25] MEDS: guaiFENesin-DM 600-30 mg ER Tab PO SCH ×2 (09:38→17:21)
[2017-12-25] MEDS: Pantoprazole 40 mg EC Tab PO SCH (09:38)
--- NOTE | 2017-12-25 11:23 | CP.PCM.CON ---
History of Present Illness - History of Present Illness History of Present Illness: 72 year old male was admitted for sepsis likely secondary to pneumonia. C/O cough with fever and weakness as well as AMS Started on empiric Vancoi/Zosyn ID consulted Patient was in GeroPsych unit since 11/17/17 and PILLOW[employer] SEWER was called yesterday due to new onset AMS with fever, tachypnea and pulse ox of 91% with 5 L oxygen PMH DM Dementia Schizoaffective disorder . SH ex- smoker \FH Non contributoey Review of Systems - Review of Systems All systems: reviewed and no additional remarkable complaints except - Constitutional Constitutional: As Per HPI - EENT Eyes: absent: As Per HPI, Blind Spots, Blurred Vision, Change in Vision, Decreased Night Vision, Diplopia, Discharge, Dry Eye, Exophthalmos, Floaters, Irritation, Itchy Eyes, Loss of Peripheral Vision, Pain, Photophobia, Requires Corrective Lenses, Sees Flashes, Spots in Vision, Tunnel Vision, Other Visual Disturbances, Loss of Vision, Other Ears: absent: As Per HPI, Decreased Hearing, Ear Discharge, Ear Pain, Tinnitus, Abnormal Hearing, Disequilibrium, Dizziness, Other Nose/Mouth/Throat: absent: As Per HPI, Epistaxis, Nasal Congestion, Nasal Discharge, Nasal Obstruction, Nasal Trauma, Nose Pain, Post Nasal Drip, Sinus Pain, Sinus Pressure, Bleeding Gums, Change in Voice, Dental Pain, Dry Mouth, Dysphagia, Halitosis, Hoarsness, Lip Swelling, Mouth Lesions, Mouth Pain, Odynophagia, Sore Throat, Throat Swelling, Tongue Swelling, Facial Pain, Neck Pain, Neck Mass, Other - Cardiovascular Cardiovascular: As Per HPI - Respiratory Respiratory: As Per HPI, Cough, Dyspnea. absent: Hemoptysis - Gastrointestinal Gastrointestinal: absent: As Per HPI, Abdominal Pain, Belching, Bloating, Change in Bowel Habits, Change in Stool Character, Coffee Ground Emesis, Constipation, Cramping, Diarrhea, Dyspepsia, Dysphagia, Early Satiety, Excessive Flatus, Fecal Incontinence, Heartburn, Hematemesis, Hematochezia, Loose Stools, Melena, Nausea, Odynophagia, Temesmus, Vomiting, Other - Genitourinary Genitourinary: absent: As Per HPI, Change in Urinary Stream, Difficulty Urinating, Dysuria, Flank Pain, Hematuria, Pyuria, Nocturia, Urinary Incontinence, Urinary Frequency, Urinary Hesitance, Urinary Urgency, Voiding Freq/Small Amts, Freq UTI, Hx Renal/Bladder Calculi, Hx /Renal Surgery, Bladder Distension, Other - Musculoskeletal Musculoskeletal: absent: As Per HPI, Abnormal Gait, Arthralgias, Atrophy, Back Pain, Deformity, Joint Swelling, Limited Range of Motion, Loss of Height, Muscle Cramps, Muscle Weakness, Myalgias, Neck Pain, Numbness, Radiating Pain into Limb, Stiffness, Tingling, Other - Integumentary Integumentary: absent: As Per HPI, Acne, Alopecia, Bleeding Lesions, Change in Hair, Change in Nails, Change in Pigmentation, Changing Lesions, Dry Skin, Erythema, Furuncle, Hirsutism, Lesions, New Lesions, Non-Healing Lesions, Photosensitivity, Pruritus, Rash, Skin Pain, Skin Ulcer, Sores, Striae, Swelling, Unusual Bruising, Wounds, Jaundice, Other - Neurological Neurological: As Per HPI - Psychiatric Psychiatric: As Per HPI - Endocrine Endocrine: absent: As Per HPI, Change in Body Appearance, Change in Libido, Cold Intolorance, Deepening of Voice, Excessive Sweating, Fatigue, Flushing, Heat Intolorance, Increase in Ring/Shoe/Hat Size, Palpitations, Polydipsia, Polyphagia, Polyuria, Other - Hematologic/Lymphatic Hematologic: absent: As Per HPI, Easy Bleeding, Easy Bruising, Lymphadenopathy, Other Past Patient History - Past Medical History & Family History Past Medical History?: Yes - Past Social History Smoking Status: Former Smoker - CARDIAC Hx Hypertension: No - PULMONARY Hx Respiratory Disorders: No Hx Tuberculosis: No - NEUROLOGICAL Hx Alzheimer's Disease: Yes Hx Dementia: Yes Hx Seizures: No - HEENT Hx HEENT Problems: No - RENAL Hx Chronic Kidney Disease: No - ENDOCRINE/METABOLIC Hx Diabetes Mellitus Type 2: Yes - HEMATOLOGICAL/ONCOLOGICAL Hx Human Immunodeficiency Virus (HIV): No - INTEGUMENTARY Hx Dermatological Problems: No - MUSCULOSKELETAL/RHEUMATOLOGICAL Hx Musculoskeletal Disorders: Yes Hx Falls: Yes - GASTROINTESTINAL Hx Gastrointestinal Disorders: No - GENITOURINARY/GYNECOLOGICAL Hx Sexually Transmitted Disorders: No - PSYCHIATRIC Hx Bipolar Disorder: Yes Hx Schizophrenia: Yes - SURGICAL HISTORY Hx Surgeries: Yes Other/Comment: stated had surgery for nosebleeding - ANESTHESIA Hx Anesthesia: No Hx Anesthesia Reactions: No Hx Malignant Hyperthermia: No Meds Allergies/Adverse Reactions: Allergies Allergy/AdvReac Type Severity Reaction Status Date / Time No Known Allergies Allergy Verified 11/17/17 12:42 - Medications Medications: Current Medications Acetaminophen (Tylenol 325mg Tab) 650 mg PO Q6 PRN PRN Reason: Fever >100.4 F Last Admin: 12/23/17 01:05 Dose: 650 mg Albuterol/Ipratropium (Duoneb 3 Mg/0.5 Mg (3 Ml) Ud) 3 ml INH RQ6 BEL Last Admin: 12/25/17 08:01 Dose: 3 ml Albuterol/Ipratropium (Duoneb 3 Mg/0.5 Mg (3 Ml) Ud) 3 ml INH RQ6 PRN PRN Reason: Shortness of Breath Aspirin (Aspirin Chewable) 81 mg PO DAILY [facility] Last Admin: 12/25/17 09:37 Dose: 81 mg Glipizide (Glucotrol) 10 mg PO DAILY [facility] Last Admin: 12/25/17 09:36 Dose: 10 mg Guaifenesin/Dextromethorphan (Mucinex-Dm 600-30 Mg) 1 tab PO BID [facility] Last Admin: 12/25/17 09:38 Dose: 1 tab Vancomycin HCl 1 gm/ Sodium (Chloride) 250 mls @ 166.667 mls/hr IVPB Q12 [facility]; Protocol Last Admin: 12/25/17 09:33 Dose: 166.667 mls/hr Piperacillin Sod/Tazobactam (Sod 3.375 gm/ Sodium Chloride) 100 mls @ 100 mls/hr IVPB Q8 [facility]; Protocol Last Admin: 12/25/17 09:33 Dose: 100 mls/hr Sodium Chloride (Sodium Chloride 0.9%) 1,000 mls @ 80 mls/hr IV .[id number] [facility] Stop: 12/26/17 11:08 Insulin Detemir (Levemir) 8 units SC HS BEL Insulin Human Lispro (Humalog) 0 units SC ACHS [facility]; Protocol Last Admin: 12/25/17 06:40 Dose: 3 units Levothyroxine Sodium (Synthroid) 25 mcg PO DAILY@0630 [facility] Last Admin: 12/25/17 05:36 Dose: 25 mcg Lorazepam (Ativan) 1 mg PO HS PRN PRN Reason: Anxiety Ondansetron HCl (Zofran Inj) 4 mg IVP Q6 PRN PRN Reason: Nausea/Vomiting Oseltamivir Phosphate (Tamiflu Cap) 75 mg PO BID [facility]; Protocol Last Admin: 12/25/17 09:34 Dose: 75 mg Pantoprazole Sodium (Protonix Ec Tab) 40 mg PO DAILY [facility] Last Admin: 12/25/17 09:38 Dose: 40 mg Risperidone (Risperdal Tab) 2 mg PO Q12 [facility] Last Admin: 12/25/17 09:35 Dose: 2 mg Sitagliptin Phosphate (Januvia) 100 mg PO DAILY [facility] Last Admin: 12/25/17 09:36 Dose: 100 mg Trazodone HCl (Desyrel) 50 mg PO HS PRN PRN Reason: Insomnia Physical Exam - Constitutional Appears: Non-toxic, Confused, Cachectic, Chronically Ill - Head Exam Head Exam: ATRAUMATIC, NORMAL INSPECTION, NORMOCEPHALIC - Eye Exam Eye Exam: PERRL. absent: Scleral icterus - ENT Exam ENT Exam: Mucous Membranes Dry - Neck Exam Neck exam: Negative for: Lymphadenopathy - Respiratory Exam Respiratory Exam: Decreased Breath Sounds, Prolonged Expiratory Phase, Rhonchi - Cardiovascular Exam Cardiovascular Exam: REGULAR RHYTHM, +S1, +S2 - GI/Abdominal Exam GI & Abdominal Exam: Diminished Bowel Sounds, Soft. absent: Rebound, Rigid, Tenderness - Rectal Exam Rectal Exam: Deferred - Exam Exam: NORMAL INSPECTION - Extremities Exam Extremities exam: Positive for: pedal pulses present. Negative for: calf tenderness, pedal edema, tenderness - Back Exam Back exam: absent: CVA tenderness (L), CVA tenderness (R), paraspinal tenderness - Neurological Exam Neurological exam: Alert, CN II-XII Intact, Oriented x3, Reflexes Normal - Psychiatric Exam Psychiatric exam: Normal Mood - Skin Skin Exam: Dry Results - Vital Signs Recent Vital Signs: Last Vital Signs Temp 97.3 F L 12/25/17 08:06 Pulse 98 H 12/25/17 08:06 Resp 18 12/25/17 08:06 BP 117/68 12/25/17 08:06 Pulse Ox 98 12/25/17 08:06 - Labs Result Diagrams: 12/24/17 12:00 12/24/17 12:00 Labs: Laboratory Results - last 24 hr 12/21/17 12/24/17 12/24/17 09:46 11:12 12:00 WBC 12.4 H RBC 3.58 L Hgb 10.7 L Hct 32.4 L MCV 90.5 MCH 30.0 MCHC 33.2 RDW 14.4 Plt Count 165 Sodium Potassium Chloride Carbon Dioxide Anion Gap BUN Creatinine Est GFR ( Amer) Est GFR (Non-Af Amer) POC Glucose (mg/dL) 326 H Random Glucose Calcium Influenza Type A Ab 1:64 H Influenza Type B Ab 1:16 H 12/24/17 12/24/17 12/24/17 12:00 15:56 22:15 WBC RBC Hgb Hct MCV MCH MCHC RDW Plt Count Sodium 136 Potassium 3.7 Chloride 103 Carbon Dioxide 27 Anion Gap 10 BUN 13 Creatinine 0.5 L Est GFR ( Amer) > 60 Est GFR (Non-Af Amer) > 60 POC Glucose (mg/dL) 268 H 214 H Random Glucose 235 H Calcium 7.7 L Influenza Type A Ab Influenza Type B Ab 12/25/17 04:27 WBC RBC Hgb Hct MCV MCH MCHC RDW Plt Count Sodium Potassium Chloride Carbon Dioxide Anion Gap BUN Creatinine Est GFR ( Amer) Est GFR (Non-Af Amer) POC Glucose (mg/dL) 233 H Random Glucose Calcium Influenza Type A Ab Influenza Type B Ab Assessment & Plan (1) Dehydration Status: Acute (2) Pneumonia Status: Acute (3) Bipolar disorder Status: Acute (4) Diabetes mellitus with hyperglycemia Status: Acute Priority: Medium (5) Fever of unknown origin Status: Acute (6) Hyperglycemia Status: Acute (7) Leukocytosis Status: Acute (8) Physical deconditioning Status: Acute (9) Schizoaffective disorder Status: Acute (10) Dementia Status: Chronic (11) Schizophrenia Status: Chronic - Assessment and Plan (Free Text) Assessment: Multifocal Pneumonia in hospital cultures pending agree with empiric IV rx
--- NOTE | 2017-12-25 11:32 | PN ---
DATE: 12/25/2017 SUBJECTIVE: The patient seen and examined. Interim events noted. Consults noted and appreciated. The patient remains in progressive care unit, on telemetry monitoring. The patient feels much better. No chest pain. No shortness of breath. Coughing improved. PHYSICAL EXAMINATION: GENERAL: The patient is in no acute distress. VITAL SIGNS: Stable. HEART: S1 and S2, normal and regular. LUNGS: Good bilateral air exchange. ABDOMEN: Soft, nontender. EXTREMITIES: No calf swelling. No tenderness. No acute ischemia. No edema. CENTRAL NERVOUS SYSTEM: Exam is essentially unchanged. DIAGNOSTIC DATA: Available diagnostic data reviewed. Telemetry monitoring does not reveal significant arrhythmias. ASSESSMENT AND PLAN: Overall, the patient's general medical condition is stable. Telemetry monitoring does not reveal significant arrhythmias. Plan as ordered. Agustin Alvarez MD
[2017-12-25] MEDS: Insulin Detemir 100 Units/ml Inj SC SCH (21:29)
[2017-12-26] MEDS: Piperacillin/Tazobact 3.375 GM in Sodium Chloride 0.9% 100 ML IVPB SCH ×3 (00:40→16:35)
[2017-12-26] MEDS: Sodium Chloride 0.9% 1,000 ML IV SCH (00:41)
[2017-12-26] MEDS: Albuterol-Ipratrop 3 mg / 0.5 (3 ml) UD INH SCH ×4 (01:14→19:25)
[2017-12-26 05:54] LABS: ALB/GLOB RATIO 0.8 (1.0-2.1); ALBUMIN 2.8 g/dL (3.5-5.0); ALT/SGPT 80 U/L (21-72); AST/SGOT 35 U/L (17-59); BLOOD UREA NITROGEN 14 mg/dl (9-20); CALCIUM 8.2 mg/dL (8.4-10.2); GFR NON-AFRICAN AMERICAN > 60
[2017-12-26] MEDS: Levothyroxine 25 MCG TAB PO SCH (06:14)
--- NOTE | 2017-12-26 06:41 | PQF ---
PROVIDER RESPONSE TEXT: Bacterial Pneumonia REVIEWER QUERY TEXT: Pneumonia Specificity Pneumonia is documented in the Medical Record. Please specify the type of pneumonia and the causative organism (includes probable or suspected) if known: Such as: Type: -- Aspiration pneumonia (please also specify the aspirate) - Please indicate if the aspiration is postprocedure -- Bacterial (please document suspected or probable organism) -- Bronchopneumonia (please document suspected or probable organism) -- Interstitial pneumonia -- Organizing pneumonia / BOOP -- Pneumonia with influenza, ricky flu, or H1N1 flu -- RSV -- Viral -- Other, please specify CXR: IMPRESSION:No interval acute cardiopulmonary disease appreciated. ER : brought to ER as a [employer]; [facility] and had an IND[employer] PL[employer] CUSTODIAN called today due to respirator y distress; noted to be febrile, tachypneic and hypoxic; Labs reviewed, significant for leukocytosis. Lactate normal. H and P RespIratory : Exam: Decreased Breath Sounds, Rales (on right lung field), NORMAL BREATHING PA TTERN. -absent: Accessory Muscle Use, Wheezes, Respiratory Distress --hx. schizoaffective disorder, dementia and DM admitted yesterday for suspected sepsis likely secondary to pneumonia. Patient was in GeroPsych unit since 11/17/17 and [employer] C[employer] was called yesterday due to new onset AMS with fever, tachypnea and pulse ox of 91% with 5 L O2; sent to ED for further evaluation. In ED, patient was febrile, tachycardiac and elevated WBC with left sh ift;reports he has productive cough for 3 days ass with fever and chills last night plan: Start vanco 1 gm q12 hr c/w Zosyn 3.375 gm q8 hrs ,IV fluids 150 cc/hr, received 2 L NS in ED D uoneb Resume rest of patients meds F/U blood cx and urine cx ,F/U CT chest f/u AM labs Chest x-ray reviewed, with increased marking bilaterally; pulse oxy: 96% (RA) The patient's Clinical Indicators include: XX Query created by: Yady Dhaliwal on 12/21/2017 12:15 PM Electronically signed by: Agustin Alvarez 12/26/2017 6:38 AM
[2017-12-26] MEDS: Insulin Lispro (humaLOG) 100 Units/ml Inj SC SCH ×4 (08:00→22:16)
[2017-12-26] MEDS: Pantoprazole 40 mg EC Tab PO SCH (08:58)
[2017-12-26] MEDS: guaiFENesin-DM 600-30 mg ER Tab PO SCH ×2 (08:58→16:34)
[2017-12-26 09:40] LABS: HEMOGLOBIN 10.6 g/dL (12.0-18.0); MEAN CELL VOLUME 89.9 fl (80.0-94.0); MEAN CORPUSCULAR HEMOGLOBIN 30.4 pg (27.0-31.0); MEAN CORPUSCULAR HGB CONC 33.8 g/dL (33.0-37.0); RBC 3.5 Mil/uL (4.40-5.90); WHITE BLOOD COUNT 13.1 K/uL (4.8-10.8)
--- NOTE | 2017-12-26 11:16 | PN ---
DATE: 12/26/2017 SUBJECTIVE: The patient seen and examined. Interim events noted. Consults noted and appreciated. The patient remains in progressive care unit, telemetry monitoring in observation room. The patient feels okay. No chest pain. No shortness of breath. Coughing improved. PHYSICAL EXAMINATION: GENERAL: The patient is in no acute distress. VITAL SIGNS: Stable. HEART EXAM: S1 and S2. Normal and regular. LUNGS: Good bilateral air exchange. ABDOMEN: Soft and nontender. EXTREMITY EXAM: No edema. No calf swelling. No tenderness. No acute ischemia. The patient has . PUBLIC ACCOUNTANT EXAM: Essentially unchanged. DIAGNOSTIC DATA: Available diagnostic data reviewed. Telemetry monitoring does not reveal significant arrhythmias. ASSESSMENT AND PLAN: Overall, the patient's general medical condition is stable. Plan as ordered. Agustin Alvarez MD
--- NOTE | 2017-12-26 14:34 | CP.PCM.PN ---
Subjective - Date & Time of Evaluation Date of Evaluation: 12/26/17 Time of Evaluation: 08:00 - Subjective Subjective: afeb nad influenza ag neg cultures so far neg antibiotics renewed Objective - Vital Signs/Intake and Output Vital Signs (last 24 hours): Temp Pulse Resp BP Pulse Ox 98.0 F 104 H 20 125/70 94 L 12/26/17 12:41 12/26/17 12:41 12/26/17 12:41 12/26/17 12:41 12/26/17 12:41 - Medications Medications: Current Medications Acetaminophen (Tylenol 325mg Tab) 650 mg PO Q6 PRN PRN Reason: Fever >100.4 F Last Admin: 12/23/17 01:05 Dose: 650 mg Albuterol/Ipratropium (Duoneb 3 Mg/0.5 Mg (3 Ml) Ud) 3 ml INH RQ6 [facility] Last Admin: 12/26/17 13:57 Dose: 3 ml Albuterol/Ipratropium (Duoneb 3 Mg/0.5 Mg (3 Ml) Ud) 3 ml INH RQ6 PRN PRN Reason: Shortness of Breath Aspirin (Aspirin Chewable) 81 mg PO DAILY [facility] Last Admin: 12/26/17 08:55 Dose: 81 mg Glipizide (Glucotrol) 10 mg PO DAILY [facility] Last Admin: 12/26/17 08:56 Dose: Not Given Guaifenesin/Dextromethorphan (Mucinex-Dm 600-30 Mg) 1 tab PO BID [facility] Last Admin: 12/26/17 08:58 Dose: 1 tab Vancomycin HCl 1 gm/ Sodium (Chloride) 250 mls @ 166.667 mls/hr IVPB Q12 [facility]; Protocol Last Admin: 12/26/17 09:15 Dose: 166.667 mls/hr Piperacillin Sod/Tazobactam (Sod 3.375 gm/ Sodium Chloride) 100 mls @ 100 mls/hr IVPB Q8 [facility]; Protocol Last Admin: 12/26/17 09:05 Dose: 100 mls/hr Insulin Detemir (Levemir) 8 units SC HS [facility] Last Admin: 12/25/17 21:29 Dose: 8 units Insulin Human Lispro (Humalog) 0 units SC ACHS [facility]; Protocol Last Admin: 12/26/17 12:02 Dose: 4 units Levothyroxine Sodium (Synthroid) 25 mcg PO DAILY@0630 [facility] Last Admin: 12/26/17 06:14 Dose: 25 mcg Lorazepam (Ativan) 1 mg PO HS PRN PRN Reason: Anxiety Ondansetron HCl (Zofran Inj) 4 mg IVP Q6 PRN PRN Reason: Nausea/Vomiting Oseltamivir Phosphate (Tamiflu Cap) 75 mg PO BID [facility]; Protocol Last Admin: 12/26/17 08:59 Dose: 75 mg Pantoprazole Sodium (Protonix Ec Tab) 40 mg PO DAILY [facility] Last Admin: 12/26/17 08:58 Dose: 40 mg Risperidone (Risperdal Tab) 2 mg PO Q12 [facility] Last Admin: 12/26/17 08:59 Dose: 2 mg Sitagliptin Phosphate (Januvia) 100 mg PO DAILY [facility] Last Admin: 12/26/17 08:57 Dose: Not Given Trazodone HCl (Desyrel) 50 mg PO HS PRN PRN Reason: Insomnia - Labs Labs: 12/26/17 09:31 12/26/17 04:30 - Constitutional Appears: Non-toxic, Chronically Ill - Head Exam Head Exam: NORMOCEPHALIC - Eye Exam Eye Exam: absent: Scleral icterus - ENT Exam ENT Exam: Mucous Membranes Dry - Neck Exam Neck Exam: absent: Lymphadenopathy - Respiratory Exam Respiratory Exam: Decreased Breath Sounds, Rhonchi - Cardiovascular Exam Cardiovascular Exam: REGULAR RHYTHM - GI/Abdominal Exam GI & Abdominal Exam: Distended, Soft - Rectal Exam Rectal Exam: Deferred - Exam Exam: NORMAL INSPECTION - Extremities Exam Extremities Exam: absent: Pedal Edema Assessment and Plan (1) Dehydration Status: Acute (2) Pneumonia Status: Acute (3) Bipolar disorder Status: Acute (4) Diabetes mellitus with hyperglycemia Status: Acute (5) Fever of unknown origin Status: Acute (6) Hyperglycemia Status: Acute (7) Leukocytosis Status: Acute (8) Physical deconditioning Status: Acute (9) Schizoaffective disorder Status: Acute (10) Dementia Status: Chronic (11) Schizophrenia Status: Chronic
[2017-12-26] MEDS: Insulin Detemir 100 Units/ml Inj SC SCH (22:18)
[2017-12-27] MEDS: Piperacillin/Tazobact 3.375 GM in Sodium Chloride 0.9% 100 ML IVPB SCH ×3 (00:54→16:59)
[2017-12-27] MEDS: Albuterol-Ipratrop 3 mg / 0.5 (3 ml) UD INH SCH ×4 (00:59→19:53)
[2017-12-27] MEDS: Levothyroxine 25 MCG TAB PO SCH (05:38)
[2017-12-27 05:42] LABS: MEAN CELL VOLUME 90.3 fl (80.0-94.0); MEAN CORPUSCULAR HEMOGLOBIN 30.8 pg (27.0-31.0); MEAN CORPUSCULAR HGB CONC 34.1 g/dL (33.0-37.0); RBC 3.56 Mil/uL (4.40-5.90); RED CELL DISTRIBUTION WIDTH 14.9 % (11.5-14.5)
[2017-12-27 06:13] LABS: ALBUMIN 2.8 g/dL (3.5-5.0); BLOOD UREA NITROGEN 12 mg/dl (9-20); CALCIUM 8.2 mg/dL (8.4-10.2); GFR NON-AFRICAN AMERICAN > 60
[2017-12-27 06:14] LABS: ALB/GLOB RATIO 0.8 (1.0-2.1); ALT/SGPT 71 U/L (21-72); AST/SGOT 27 U/L (17-59)
[2017-12-27] MEDS: Insulin Lispro (humaLOG) 100 Units/ml Inj SC SCH ×4 (06:35→22:20)
[2017-12-27] MEDS: guaiFENesin-DM 600-30 mg ER Tab PO SCH ×2 (09:14→16:59)
[2017-12-27] MEDS: Pantoprazole 40 mg EC Tab PO SCH (09:15)
--- NOTE | 2017-12-27 09:56 | CP.PCM.PN ---
<Kuldeep Jimenez - Last Filed: 12/27/17 10:59> Subjective - Date & Time of Evaluation Date of Evaluation: 12/27/17 Time of Evaluation: 09:56 - Subjective Subjective: Patient seen and examined with Dr Alvarez during rounds Patient reports feeling better today, no cough or sob at this time, spiking fever during night, cultures negative otherwise denies chills, nausea, vomiting, abdominal pain, no urinary symptoms. Objective - Vital Signs/Intake and Output Vital Signs (last 24 hours): Temp Pulse Resp BP Pulse Ox 97.9 F 68 18 104/59 L 95 12/27/17 08:16 12/27/17 08:16 12/27/17 08:16 12/27/17 08:16 12/27/17 08:16 - Medications Medications: Current Medications Acetaminophen (Tylenol 325mg Tab) 650 mg PO Q6 PRN PRN Reason: Fever >100.4 F Last Admin: 12/27/17 00:54 Dose: 650 mg Albuterol/Ipratropium (Duoneb 3 Mg/0.5 Mg (3 Ml) Ud) 3 ml INH RQ6 [facility] Last Admin: 12/27/17 07:57 Dose: 3 ml Albuterol/Ipratropium (Duoneb 3 Mg/0.5 Mg (3 Ml) Ud) 3 ml INH RQ6 PRN PRN Reason: Shortness of Breath Aspirin (Aspirin Chewable) 81 mg PO DAILY [facility] Last Admin: 12/27/17 09:13 Dose: 81 mg Glipizide (Glucotrol) 10 mg PO DAILY [facility] Last Admin: 12/27/17 09:13 Dose: 10 mg Guaifenesin/Dextromethorphan (Mucinex-Dm 600-30 Mg) 1 tab PO BID [facility] Last Admin: 12/27/17 09:14 Dose: 1 tab Vancomycin HCl 1 gm/ Sodium (Chloride) 250 mls @ 166.667 mls/hr IVPB Q12 [facility]; Protocol Last Admin: 12/27/17 09:17 Dose: 166.667 mls/hr Piperacillin Sod/Tazobactam (Sod 3.375 gm/ Sodium Chloride) 100 mls @ 100 mls/ hr IVPB Q8 [facility]; Protocol Last Admin: 12/27/17 09:18 Dose: 100 mls/hr Insulin Detemir (Levemir) 8 units SC HS [facility] Last Admin: 12/26/17 22:18 Dose: 8 units Insulin Human Lispro (Humalog) 0 units SC ACHS [facility]; Protocol Last Admin: 12/27/17 06:35 Dose: Not Given Levothyroxine Sodium (Synthroid) 25 mcg PO DAILY@0630 [facility] Last Admin: 12/27/17 05:38 Dose: 25 mcg Lorazepam (Ativan) 1 mg PO HS PRN PRN Reason: Anxiety Ondansetron HCl (Zofran Inj) 4 mg IVP Q6 PRN PRN Reason: Nausea/Vomiting Oseltamivir Phosphate (Tamiflu Cap) 75 mg PO BID [facility]; Protocol Last Admin: 12/27/17 09:16 Dose: 75 mg Pantoprazole Sodium (Protonix Ec Tab) 40 mg PO DAILY [facility] Last Admin: 12/27/17 09:15 Dose: 40 mg Risperidone (Risperdal Tab) 2 mg PO Q12 [facility] Last Admin: 12/27/17 09:15 Dose: 2 mg Sitagliptin Phosphate (Januvia) 100 mg PO DAILY [facility] Last Admin: 12/27/17 09:14 Dose: 100 mg Trazodone HCl (Desyrel) 50 mg PO HS PRN PRN Reason: Insomnia Last Admin: 12/26/17 21:51 Dose: 50 mg - Labs Labs: 12/27/17 05:32 12/27/17 05:32 - Constitutional Appears: No Acute Distress - Head Exam Head Exam: NORMAL INSPECTION - Respiratory Exam Respiratory Exam: Rales. absent: Accessory Muscle Use, Chest Wall Tenderness - Cardiovascular Exam Cardiovascular Exam: Tachycardia, REGULAR RHYTHM - GI/Abdominal Exam GI & Abdominal Exam: Soft. absent: Distended, Tenderness - Extremities Exam Extremities Exam: absent: Calf Tenderness - Neurological Exam Neurological Exam: Alert, Awake, Oriented x3 - Skin Skin Exam: Dry, Warm Assessment and Plan - Assessment and Plan (Free Text) Assessment: 72 year old male with a PMHx of schizoaffective disorder, dementia and DM admitted pneumonia, unspecified Plan: - CT chest: multilobar infiltrates involving R and L lower lobe, no pleural effusions - flu serology negative - continue vanco and zosyn IV - ID on board, recommendations appreciated - IV fluids - Duonebs - Resume rest of patients medications - blood cx and urine cx negative - f/u sputum cultures - f/u AM labs - Rest of the plan as ordered <Agustin Alvarez K - Last Filed: 01/01/18 14:42> Objective - Vital Signs/Intake and Output Vital Signs (last 24 hours): Temp Pulse Resp BP Pulse Ox 98.0 F 98 H 18 111/68 97 01/01/18 12:00 01/01/18 12:00 01/01/18 12:00 01/01/18 12:00 01/01/18 12:00 - Medications Medications: Current Medications Aspirin (Aspirin Chewable) 81 mg PO DAILY [facility] Last Admin: 01/01/18 09:42 Dose: 81 mg Glipizide (Glucotrol) 10 mg PO DAILY [facility] Last Admin: 01/01/18 09:42 Dose: 10 mg Guaifenesin/Dextromethorphan (Mucinex-Dm 600-30 Mg) 1 tab PO BID [facility] Last Admin: 01/01/18 09:42 Dose: 1 tab Piperacillin Sod/Tazobactam (Sod 3.375 gm/ Sodium Chloride) 100 mls @ 100 mls/hr IVPB Q6 [facility]; Protocol Last Admin: 01/01/18 09:41 Dose: 100 mls/hr Insulin Detemir (Levemir) 8 units SC HS [facility] Last Admin: 12/31/17 22:16 Dose: 8 units Insulin Human Lispro (Humalog) 0 units SC ACHS [facility]; Protocol Last Admin: 01/01/18 09:51 Dose: Not Given Levalbuterol HCl (Xopenex) 0.63 mg INH RQ8 PRN PRN Reason: Shortness of Breath Levothyroxine Sodium (Synthroid) 25 mcg PO DAILY@0630 [facility] Last Admin: 01/01/18 06:04 Dose: 25 mcg Ondansetron HCl (Zofran Inj) 4 mg IVP Q6 PRN PRN Reason: Nausea/Vomiting Pantoprazole Sodium (Protonix Ec Tab) 40 mg PO DAILY [facility] Last Admin: 01/01/18 09:42 Dose: 40 mg Risperidone (Risperdal Tab) 2 mg PO Q12 [facility] Last Admin: 01/01/18 09:42 Dose: 2 mg Sitagliptin Phosphate (Januvia) 100 mg PO DAILY [facility] Last Admin: 01/01/18 09:42 Dose: 100 mg Trazodone HCl (Desyrel) 50 mg PO HS PRN PRN Reason: Insomnia Last Admin: 12/26/17 21:51 Dose: 50 mg - Labs Labs: 01/01/18 04:25 01/01/18 04:25 Assessment and Plan - Assessment and Plan (Free Text) Assessment: Patient was personally seen and examined by me in rounds with residents. Available labs and diagnostic data reviewed. Case, Patient's condition and management plan discussed with residents in rounds. Agree with resident's progress note. Plan: As ordered.
--- NOTE | 2017-12-27 13:18 | RAD ---
Date of service: 12/27/2017 HISTORY: f/u pna COMPARISON: 12/20/2017 TECHNIQUE: Chest PA and lateral FINDINGS: LUNGS: Extensive left upper lobe infiltrate new since prior examination. Predominantly apical posterior segment. No right-sided pulmonary infiltrate. PLEURA: Small bilateral pleural effusion best appreciated in the lateral projection, at the costophrenic sulcus. CARDIOVASCULAR: No atherosclerotic calcification present Normal. OSSEOUS STRUCTURES: No significant abnormalities. VISUALIZED UPPER ABDOMEN: Normal. OTHER FINDINGS: None. IMPRESSION: Left upper lobe infiltrate. Possible pneumonia. Small bilateral pleural effusion.
[2017-12-27] MEDS: Insulin Detemir 100 Units/ml Inj SC SCH (22:19)
[2017-12-28] MEDS: Albuterol-Ipratrop 3 mg / 0.5 (3 ml) UD INH SCH ×2 (01:10→08:11)
[2017-12-28] MEDS: Piperacillin/Tazobact 3.375 GM in Sodium Chloride 0.9% 100 ML IVPB SCH ×3 (01:48→18:05)
[2017-12-28 05:52] LABS: BLOOD UREA NITROGEN 14 mg/dl (9-20); CALCIUM 8.2 mg/dL (8.4-10.2); GFR NON-AFRICAN AMERICAN > 60
[2017-12-28 05:53] LABS: HEMOGLOBIN 10.6 g/dL (12.0-18.0); MEAN CELL VOLUME 91.1 fl (80.0-94.0); MEAN CORPUSCULAR HEMOGLOBIN 29.9 pg (27.0-31.0); MEAN CORPUSCULAR HGB CONC 32.9 g/dL (33.0-37.0); RBC 3.55 Mil/uL (4.40-5.90); RED CELL DISTRIBUTION WIDTH 15.3 % (11.5-14.5); WHITE BLOOD COUNT 12.3 K/uL (4.8-10.8)
[2017-12-28] MEDS: Levothyroxine 25 MCG TAB PO SCH (06:28)
[2017-12-28] MEDS: Insulin Lispro (humaLOG) 100 Units/ml Inj SC SCH ×3 (08:25→17:08)
--- NOTE | 2017-12-28 09:13 | CP.PCM.PN ---
<Kuldeep Jimenez - Last Filed: 12/28/17 09:30> Subjective - Date & Time of Evaluation Date of Evaluation: 12/28/17 Time of Evaluation: 09:13 - Subjective Subjective: Patient seen and examined this morning with Dr Alvarez, patient reports feeling better, denies fever, chills, sob or CP. No acute overnight events Objective - Vital Signs/Intake and Output Vital Signs (last 24 hours): Temp Pulse Resp BP Pulse Ox 98.0 F 98 H 18 104/54 L 96 12/28/17 08:00 12/28/17 08:00 12/28/17 08:00 12/28/17 08:00 12/28/17 08:00 - Medications Medications: Current Medications Acetaminophen (Tylenol 325mg Tab) 650 mg PO Q6 PRN PRN Reason: Fever >100.4 F Last Admin: 12/27/17 00:54 Dose: 650 mg Albuterol/Ipratropium (Duoneb 3 Mg/0.5 Mg (3 Ml) Ud) 3 ml INH RQ6 [facility] Last Admin: 12/28/17 08:11 Dose: 3 ml Albuterol/Ipratropium (Duoneb 3 Mg/0.5 Mg (3 Ml) Ud) 3 ml INH RQ6 PRN PRN Reason: Shortness of Breath Aspirin (Aspirin Chewable) 81 mg PO DAILY [facility] Last Admin: 12/27/17 09:13 Dose: 81 mg Glipizide (Glucotrol) 10 mg PO DAILY [facility] Last Admin: 12/27/17 09:13 Dose: 10 mg Guaifenesin/Dextromethorphan (Mucinex-Dm 600-30 Mg) 1 tab PO BID [facility] Last Admin: 12/27/17 16:59 Dose: 1 tab Vancomycin HCl 1 gm/ Sodium (Chloride) 250 mls @ 166.667 mls/hr IVPB Q12 [facility]; Protocol Last Admin: 12/27/17 22:18 Dose: 166.667 mls/hr Piperacillin Sod/Tazobactam (Sod 3.375 gm/ Sodium Chloride) 100 mls @ 100 mls/hr IVPB Q8 [facility]; Protocol Last Admin: 12/28/17 01:48 Dose: 100 mls/hr Insulin Detemir (Levemir) 8 units SC HS [facility] Last Admin: 12/27/17 22:19 Dose: 8 units Insulin Human Lispro (Humalog) 0 units SC ACHS [facility]; Protocol Last Admin: 12/27/17 22:20 Dose: Not Given Levothyroxine Sodium (Synthroid) 25 mcg PO DAILY@0630 [facility] Last Admin: 12/28/17 06:28 Dose: 25 mcg Lorazepam (Ativan) 1 mg PO HS PRN PRN Reason: Anxiety Ondansetron HCl (Zofran Inj) 4 mg IVP Q6 PRN PRN Reason: Nausea/Vomiting Oseltamivir Phosphate (Tamiflu Cap) 75 mg PO BID [facility]; Protocol Last Admin: 12/27/17 16:59 Dose: 75 mg Pantoprazole Sodium (Protonix Ec Tab) 40 mg PO DAILY [facility] Last Admin: 12/27/17 09:15 Dose: 40 mg Risperidone (Risperdal Tab) 2 mg PO Q12 [facility] Last Admin: 12/27/17 22:19 Dose: 2 mg Sitagliptin Phosphate (Januvia) 100 mg PO DAILY [facility] Last Admin: 12/27/17 09:14 Dose: 100 mg Trazodone HCl (Desyrel) 50 mg PO HS PRN PRN Reason: Insomnia Last Admin: 12/26/17 21:51 Dose: 50 mg - Labs Labs: 12/28/17 04:45 12/28/17 04:45 - Constitutional Appears: No Acute Distress - Head Exam Head Exam: NORMAL INSPECTION - Respiratory Exam Respiratory Exam: Rhonchi, NORMAL BREATHING PATTERN. absent: Accessory Muscle Use - Cardiovascular Exam Cardiovascular Exam: REGULAR RHYTHM, +S1, +S2. absent: Tachycardia - GI/Abdominal Exam GI & Abdominal Exam: Soft. absent: Distended, Tenderness - Extremities Exam Extremities Exam: absent: Calf Tenderness, Pedal Edema - Neurological Exam Neurological Exam: Alert, Awake - Skin Skin Exam: Dry, Warm Assessment and Plan - Assessment and Plan (Free Text) Assessment: 72 year old male with a PMHx of schizoaffective disorder, dementia and DM admitted pneumonia, unspecified Plan: - afebrile - CT chest: multilobar infiltrates involving R and L lower lobe, no pleural effusions - Repeat CXR: stable L lower lobe pneumonia, small pleural effusion - flu serology negative - continue vanco and zosyn IV as per ID - ID on board, recommendations appreciated - IV fluids - Duonebs - blood cx and urine cx negative - f/u sputum cultures - f/u AM labs - Rest of the plan as ordered <Agustin Alvarez - Last Filed: 01/01/18 14:41> Objective - Vital Signs/Intake and Output Vital Signs (last 24 hours): Temp Pulse Resp BP Pulse Ox 98.0 F 98 H 18 111/68 97 01/01/18 12:00 01/01/18 12:00 01/01/18 12:00 01/01/18 12:00 01/01/18 12:00 - Medications Medications: Current Medications Aspirin (Aspirin Chewable) 81 mg PO DAILY [facility] Last Admin: 01/01/18 09:42 Dose: 81 mg Glipizide (Glucotrol) 10 mg PO DAILY [facility] Last Admin: 01/01/18 09:42 Dose: 10 mg Guaifenesin/Dextromethorphan (Mucinex-Dm 600-30 Mg) 1 tab PO BID [facility] Last Admin: 01/01/18 09:42 Dose: 1 tab Piperacillin Sod/Tazobactam (Sod 3.375 gm/ Sodium Chloride) 100 mls @ 100 mls/hr IVPB Q6 [facility]; Protocol Last Admin: 01/01/18 09:41 Dose: 100 mls/hr Insulin Detemir (Levemir) 8 units SC HS [facility] Last Admin: 12/31/17 22:16 Dose: 8 units Insulin Human Lispro (Humalog) 0 units SC ACHS [facility]; Protocol Last Admin: 01/01/18 09:51 Dose: Not Given Levalbuterol HCl (Xopenex) 0.63 mg INH RQ8 PRN PRN Reason: Shortness of Breath Levothyroxine Sodium (Synthroid) 25 mcg PO DAILY@0630 [facility] Last Admin: 01/01/18 06:04 Dose: 25 mcg Ondansetron HCl (Zofran Inj) 4 mg IVP Q6 PRN PRN Reason: Nausea/Vomiting Pantoprazole Sodium (Protonix Ec Tab) 40 mg PO DAILY [facility] Last Admin: 01/01/18 09:42 Dose: 40 mg Risperidone (Risperdal Tab) 2 mg PO Q12 [facility] Last Admin: 01/01/18 09:42 Dose: 2 mg Sitagliptin Phosphate (Januvia) 100 mg PO DAILY [facility] Last Admin: 01/01/18 09:42 Dose: 100 mg Trazodone HCl (Desyrel) 50 mg PO HS PRN PRN Reason: Insomnia Last Admin: 12/26/17 21:51 Dose: 50 mg - Labs Labs: 01/01/18 04:25 01/01/18 04:25 Assessment and Plan - Assessment and Plan (Free Text) Assessment: Patient was personally seen and examined by me in rounds with residents. Available labs and diagnostic data reviewed. Case, Patient's condition and management plan discussed with residents in rounds. Agree with resident's progress note. Plan: As ordered.
[2017-12-28] MEDS: guaiFENesin-DM 600-30 mg ER Tab PO SCH ×2 (09:42→19:09)
[2017-12-28] MEDS: Pantoprazole 40 mg EC Tab PO SCH (09:43)
[2017-12-28 11:05] LABS: T4 5.58 ug/dl (5.5-11.0)
[2017-12-28 11:18] LABS: T3 1.71 nmol/L (1.49-2.60)
[2017-12-28] MEDS ORDERED: Sodium Chloride 3% for Inhalation 4 ML VIAL.NEB IH PRN (14:03)
--- NOTE | 2017-12-28 14:07 | CP.PCM.PN ---
Subjective - Date & Time of Evaluation Date of Evaluation: 12/28/17 Time of Evaluation: 09:00 - Subjective Subjective: no fever + cough weakness poor historian CXR reviewed - persistent MG infiltrate will check AFB sputum consider Pulm eval / CT chest Objective - Vital Signs/Intake and Output Vital Signs (last 24 hours): Temp Pulse Resp BP Pulse Ox 97.6 F 98 H 20 122/67 95 12/28/17 12:03 12/28/17 12:03 12/28/17 12:03 12/28/17 12:03 12/28/17 12:03 - Medications Medications: Current Medications Aspirin (Aspirin Chewable) 81 mg PO DAILY [facility] Last Admin: 12/28/17 09:43 Dose: 81 mg Glipizide (Glucotrol) 10 mg PO DAILY [facility] Last Admin: 12/28/17 09:44 Dose: 10 mg Guaifenesin/Dextromethorphan (Mucinex-Dm 600-30 Mg) 1 tab PO BID [facility] Last Admin: 12/28/17 09:42 Dose: 1 tab Vancomycin HCl 1 gm/ Sodium (Chloride) 250 mls @ 166.667 mls/hr IVPB Q12 [facility]; Protocol Last Admin: 12/28/17 09:50 Dose: 166.667 mls/hr Piperacillin Sod/Tazobactam (Sod 3.375 gm/ Sodium Chloride) 100 mls @ 100 mls/hr IVPB Q8 [facility]; Protocol Last Admin: 12/28/17 09:27 Dose: 100 mls/hr Insulin Detemir (Levemir) 8 units SC HS [facility] Last Admin: 12/27/17 22:19 Dose: 8 units Insulin Human Lispro (Humalog) 0 units SC ACHS [facility]; Protocol Last Admin: 12/28/17 08:25 Dose: 2 units Levalbuterol HCl (Xopenex) 0.63 mg INH RQ8 PRN PRN Reason: Shortness of Breath Levothyroxine Sodium (Synthroid) 25 mcg PO DAILY@0630 [facility] Last Admin: 12/28/17 06:28 Dose: 25 mcg Lorazepam (Ativan) 1 mg PO HS PRN PRN Reason: Anxiety Ondansetron HCl (Zofran Inj) 4 mg IVP Q6 PRN PRN Reason: Nausea/Vomiting Oseltamivir Phosphate (Tamiflu Cap) 75 mg PO BID [facility]; Protocol Last Admin: 12/28/17 09:42 Dose: 75 mg Pantoprazole Sodium (Protonix Ec Tab) 40 mg PO DAILY [facility] Last Admin: 12/28/17 09:43 Dose: 40 mg Risperidone (Risperdal Tab) 2 mg PO Q12 [facility] Last Admin: 12/28/17 09:41 Dose: 2 mg Sitagliptin Phosphate (Januvia) 100 mg PO DAILY [facility] Last Admin: 12/27/17 09:14 Dose: 100 mg Trazodone HCl (Desyrel) 50 mg PO HS PRN PRN Reason: Insomnia Last Admin: 12/26/17 21:51 Dose: 50 mg - Labs Labs: 12/28/17 04:45 12/28/17 04:45 - Constitutional Appears: Non-toxic, No Acute Distress, Cachectic, Chronically Ill - Head Exam Head Exam: NORMOCEPHALIC - Eye Exam Eye Exam: absent: Scleral icterus - ENT Exam ENT Exam: Mucous Membranes Dry - Neck Exam Neck Exam: absent: Lymphadenopathy - Respiratory Exam Respiratory Exam: Decreased Breath Sounds - Cardiovascular Exam Cardiovascular Exam: REGULAR RHYTHM, +S1, +S2 - Rectal Exam Rectal Exam: Deferred - Exam Exam: NORMAL INSPECTION - Extremities Exam Extremities Exam: absent: Pedal Edema - Back Exam Back Exam: absent: CVA tenderness (L), CVA tenderness (R) - Neurological Exam Neurological Exam: Alert, Awake, Oriented x3 - Psychiatric Exam Psychiatric exam: Depressed - Skin Skin Exam: Dry Assessment and Plan (1) Dehydration Status: Acute (2) Pneumonia Status: Acute (3) Bipolar disorder Status: Acute (4) Diabetes mellitus with hyperglycemia Status: Acute (5) Fever of unknown origin Status: Acute (6) Hyperglycemia Status: Acute (7) Leukocytosis Status: Acute (8) Physical deconditioning Status: Acute (9) Schizoaffective disorder Status: Acute (10) Dementia Status: Chronic (11) Schizophrenia Status: Chronic - Assessment and Plan (Free Text) Assessment: no fever + cough weakness poor historian CXR reviewed - persistent MG infiltrate will check AFB sputum consider Pulm eval / CT chest
--- NOTE | 2017-12-28 17:17 | CARD ---
APPROVED REPORT Date of service: 12/28/2017 EXAM: Two-dimensional and M-mode echocardiogram with Doppler and color Doppler. Other Information Quality : AverageRhythm : Tachycardia Technically limited study due to body habitus/best window subcostal M-Mode DIMENSIONS Aortic Root2.93 (2.2-3.7cm)Aortic Cusp Exc.2.00 (1.5-2.0cm) Aortic Valve AoV Peak Hxefzjkc467.0cm/sAoV VTI35.2cmAO Peak GR.20mmHg LVOT Peak Tolngfoc230.6cm/sLVOT VTI20.21cmAO Mean GR.12mmHg Mitral Valve E/A ratio0.0 TDI E/Lateral E'0.0E/Medial E'0.0 Pulmonary Valve PV Peak Fnmvbkyo469.7cm/s LEFT VENTRICLE The left ventricle is normal size. There is normal left ventricular wall thickness. The left ventricular systolic function is normal. The estimated ejection fraction is 55-60% No regional wall motion abnormalities noted.. Transmitral Doppler flow pattern is Grade I-abnormal relaxation pattern. No left ventricle thrombus noted on this study. There is no ventricular septal defect visualized. There is no left ventricular aneurysm. There is no mass noted in the left ventricle. RIGHT VENTRICLE The right ventricle is normal size. There is normal right ventricular wall thickness. The right ventricular systolic function is normal. ATRIA The left atrium size is normal. The right atrium size is normal. The interatrial septum is intact with no evidence for an atrial septal defect. AORTIC VALVE The aortic valve is normal in structure. No aortic regurgitation is present. There is no aortic valvular stenosis. There is no aortic valvular vegetation. MITRAL VALVE The mitral valve is normal in structure. There is no evidence of mitral valve prolapse. There is no mitral valve stenosis. There is trace mitral valve regurgitation noted. TRICUSPID VALVE The tricuspid valve is normal in structure. There is no tricuspid valve regurgitation noted. There is no tricuspid valve prolapse or vegetation. There is no tricuspid valve stenosis. PULMONIC VALVE The pulmonary valve is normal in structure. There is no pulmonic valvular regurgitation. There is no pulmonic valvular stenosis. GREAT VESSELS The aortic root is normal in size. The ascending aorta is normal in size. The pulmonary artery is normal. The IVC is normal in size and collapses >50% with inspiration. PERICARDIAL EFFUSION There is no pericardial effusion. There is no pleural effusion. <Conclusion> Technically difficult study. The estimated ejection fraction is 55-60% Transmitral Doppler flow pattern is Grade I-abnormal relaxation pattern. There is trace mitral valve regurgitation noted.
--- NOTE | 2017-12-28 17:30 | CP.PCM.PN ---
Subjective - Date & Time of Evaluation Date of Evaluation: 12/28/17 Time of Evaluation: 17:30 - Subjective Subjective: HR stable no complaints echo reviewed Objective - Vital Signs/Intake and Output Vital Signs (last 24 hours): Temp Pulse Resp BP Pulse Ox 97.8 F 101 H 17 116/61 91 L 12/28/17 16:37 12/28/17 16:37 12/28/17 16:37 12/28/17 16:37 12/28/17 16:37 - Medications Medications: Current Medications Aspirin (Aspirin Chewable) 81 mg PO DAILY [facility] Last Admin: 12/28/17 09:43 Dose: 81 mg Glipizide (Glucotrol) 10 mg PO DAILY [facility] Last Admin: 12/28/17 09:44 Dose: 10 mg Guaifenesin/Dextromethorphan (Mucinex-Dm 600-30 Mg) 1 tab PO BID [facility] Last Admin: 12/28/17 09:42 Dose: 1 tab Vancomycin HCl 1 gm/ Sodium (Chloride) 250 mls @ 166.667 mls/hr IVPB Q12 [facility]; Protocol Last Admin: 12/28/17 09:50 Dose: 166.667 mls/hr Piperacillin Sod/Tazobactam (Sod 3.375 gm/ Sodium Chloride) 100 mls @ 100 mls/hr IVPB Q8 [facility]; Protocol Last Admin: 12/28/17 09:27 Dose: 100 mls/hr Insulin Detemir (Levemir) 8 units SC HS [facility] Last Admin: 12/27/17 22:19 Dose: 8 units Insulin Human Lispro (Humalog) 0 units SC ACHS [facility]; Protocol Last Admin: 12/28/17 13:30 Dose: 3 units Levalbuterol HCl (Xopenex) 0.63 mg INH RQ8 PRN PRN Reason: Shortness of Breath Levothyroxine Sodium (Synthroid) 25 mcg PO DAILY@0630 [facility] Last Admin: 12/28/17 06:28 Dose: 25 mcg Lorazepam (Ativan) 1 mg PO HS PRN PRN Reason: Anxiety Ondansetron HCl (Zofran Inj) 4 mg IVP Q6 PRN PRN Reason: Nausea/Vomiting Oseltamivir Phosphate (Tamiflu Cap) 75 mg PO BID [facility]; Protocol Last Admin: 12/28/17 09:42 Dose: 75 mg Pantoprazole Sodium (Protonix Ec Tab) 40 mg PO DAILY [facility] Last Admin: 12/28/17 09:43 Dose: 40 mg Risperidone (Risperdal Tab) 2 mg PO Q12 [facility] Last Admin: 12/28/17 09:41 Dose: 2 mg Sitagliptin Phosphate (Januvia) 100 mg PO DAILY [facility] Last Admin: 12/27/17 09:14 Dose: 100 mg Trazodone HCl (Desyrel) 50 mg PO HS PRN PRN Reason: Insomnia Last Admin: 12/26/17 21:51 Dose: 50 mg - Labs Labs: 12/28/17 04:45 12/28/17 04:45 - Constitutional Appears: Well - Head Exam Head Exam: ATRAUMATIC, NORMAL INSPECTION, NORMOCEPHALIC - Eye Exam Eye Exam: EOMI, Normal appearance, PERRL Pupil Exam: NORMAL ACCOMODATION, PERRL - ENT Exam ENT Exam: Mucous Membranes Moist, Normal Exam - Neck Exam Neck Exam: Full ROM, Normal Inspection. absent: Lymphadenopathy - Respiratory Exam Respiratory Exam: Clear to Ausculation Bilateral, NORMAL BREATHING PATTERN - Cardiovascular Exam Cardiovascular Exam: REGULAR RHYTHM, +S1, +S2, Murmur - GI/Abdominal Exam GI & Abdominal Exam: Soft, Normal Bowel Sounds. absent: Tenderness - Extremities Exam Extremities Exam: Full ROM, Normal Capillary Refill, Normal Inspection. absent: Joint Swelling, Pedal Edema - Back Exam Back Exam: NORMAL INSPECTION - Neurological Exam Neurological Exam: Alert, Awake, CN II-XII Intact, Normal Gait, Oriented x3 - Psychiatric Exam Psychiatric exam: Normal Affect, Normal Mood - Skin Skin Exam: Dry, Intact, Normal Color, Warm Assessment and Plan (1) Tachycardia Status: Acute (2) Dehydration Status: Acute (3) Pneumonia Status: Acute (4) Fever of unknown origin Status: Acute (5) Leukocytosis Status: Acute (6) Syncope Status: Resolved (7) CAD (coronary artery disease) Status: Acute
[2017-12-28] MEDS: Insulin Detemir 100 Units/ml Inj SC SCH (22:59)
[2017-12-29] MEDS: Insulin Lispro (humaLOG) 100 Units/ml Inj SC SCH ×4 (00:02→22:40)
[2017-12-29] MEDS: Piperacillin/Tazobact 3.375 GM in Sodium Chloride 0.9% 100 ML IVPB SCH ×3 (00:37→16:57)
[2017-12-29] MEDS: Sodium Chloride 3% for Inhalation 4 ML VIAL.NEB IH PRN (05:18)
[2017-12-29] MEDS: Levothyroxine 25 MCG TAB PO SCH (05:47)
[2017-12-29 07:33] LABS: HEMOGLOBIN 10.9 g/dL (12.0-18.0); MEAN CELL VOLUME 90.8 fl (80.0-94.0); MEAN CORPUSCULAR HEMOGLOBIN 29.6 pg (27.0-31.0); MEAN CORPUSCULAR HGB CONC 32.6 g/dL (33.0-37.0); RBC 3.68 Mil/uL (4.40-5.90); RED CELL DISTRIBUTION WIDTH 15.2 % (11.5-14.5); WHITE BLOOD COUNT 15.4 K/uL (4.8-10.8)
[2017-12-29] MEDS: Pantoprazole 40 mg EC Tab PO SCH (09:32)
[2017-12-29] MEDS: guaiFENesin-DM 600-30 mg ER Tab PO SCH ×2 (09:32→16:58)
[2017-12-29] MEDS ORDERED: Iohexol 300 100 ML IJ ONE (09:38)
--- NOTE | 2017-12-29 12:41 | PN ---
DATE: 12/29/2017 SUBJECTIVE: The patient seen and examined. Interim events noted. Consults noted and appreciated. The patient remains in progressive care unit, on telemetry monitoring. The patient feels okay. No chest pain. No shortness of breath. Has periods of coughing. PHYSICAL EXAMINATION: GENERAL: The patient is in no acute distress. VITAL SIGNS: Stable. HEART: S1 and S2, normal and regular. LUNGS: Good bilateral air exchange. ABDOMEN: Soft and nontender. EXTREMITIES: No edema. No calf swelling. No tenderness. No acute ischemia. CENTRAL NERVOUS SYSTEM: Exam is essentially unchanged. DIAGNOSTIC DATA: Available diagnostic data reviewed. Telemetry monitoring does not reveal arrhythmias. ASSESSMENT AND PLAN: Overall, the patient is medically stable. Plan as ordered. Case and plan discussed with the patient. Case was also discussed with the psychiatrist yesterday. The patient will be going back to geropsych unit after medical treatment is completed. Agustin Alvarez MD
--- NOTE | 2017-12-29 15:17 | CT ---
Date of service: 12/29/2017 PROCEDURE: CT chest without and with contrast.. HISTORY: Pneumonia COMPARISON: The comparison made with CT chest 12/21/2017. TECHNIQUE: Contiguous axial images were obtained through the chest performed before and following intravenous injection of approximately 95 cc Omnipaque 300. Sagittal and coronal reconstructions were performed. Radiation dose: Total exam DLP = 571.72 mGy-cm. This CT exam was performed using one or more of the following dose reduction techniques: Automated exposure control, adjustment of the mA and/or kV according to patient size, and/or use of iterative reconstruction technique. FINDINGS: LUNGS: Interval development of large bilateral effusions left larger than right. Bibasilar atelectasis. Progression of infiltrate changes in the left upper lobe with some atelectasis.. Infiltrate changes in the superior aspect left lower lobe have also progressed and appear contiguous with atelectasis MEDIASTINUM: Heart size within range of normal. No significant pericardial effusion. At ascending thoracic aorta measures approximately 3. 3 cm and descending thoracic aorta measures approximately 2.5 cm. Mild atherosclerotic calcification or mural plaque present. Pulmonary trunk measures approximately 3.0 cm. PLEURA: As above. No pneumothorax. BONES: Redemonstrated is a heterogeneous sclerotic lesion within the T4 segment unchanged. UPPER ABDOMEN: Grossly unremarkable. OTHER FINDINGS: There is a small hiatal hernia IMPRESSION: Interval development of large bilateral effusions left larger than right. Increased atelectasis both lung bases. Progression left upper lobe infiltrate with probable early infiltrate changes in the superior aspect left lower lobe as well.. Redemonstrated is a heterogeneous sclerotic lesion T4 segment unchanged..
[2017-12-29] MEDS: Insulin Detemir 100 Units/ml Inj SC SCH (22:42)
[2017-12-30] MEDS: Levothyroxine 25 MCG TAB PO SCH (06:22)
[2017-12-30] MEDS: Insulin Lispro (humaLOG) 100 Units/ml Inj SC SCH ×4 (06:30→22:09)
[2017-12-30 07:36] LABS: HEMOGLOBIN 11.5 g/dL (12.0-18.0); MEAN CELL VOLUME 90.5 fl (80.0-94.0); MEAN CORPUSCULAR HEMOGLOBIN 30.1 pg (27.0-31.0); MEAN CORPUSCULAR HGB CONC 33.2 g/dL (33.0-37.0); RBC 3.81 Mil/uL (4.40-5.90); RED CELL DISTRIBUTION WIDTH 15.2 % (11.5-14.5); WHITE BLOOD COUNT 15.7 K/uL (4.8-10.8)
[2017-12-30 07:53] LABS: ALB/GLOB RATIO 0.7 (1.0-2.1); ALBUMIN 2.9 g/dL (3.5-5.0); ALT/SGPT 47 U/L (21-72); AST/SGOT 26 U/L (17-59); BLOOD UREA NITROGEN 16 mg/dl (9-20); CALCIUM 8.3 mg/dL (8.4-10.2); GFR NON-AFRICAN AMERICAN > 60
[2017-12-30] MEDS: guaiFENesin-DM 600-30 mg ER Tab PO SCH ×2 (09:15→16:30)
[2017-12-30] MEDS: Pantoprazole 40 mg EC Tab PO SCH (09:15)
--- NOTE | 2017-12-30 11:38 | CP.PCM.PN ---
Subjective - Date & Time of Evaluation Date of Evaluation: 12/30/17 Time of Evaluation: 11:43 - Subjective Subjective: 72 YR OLD MALE REFERRED FOR PULMONARY EVALUATION BECAUSE OF FINDING OF PLEURAL EFFUSIONS ON CT SCAN OF CHEST. HE WAS ADMITTED WITH PNEUMONIA AND PSYCH HISTORY.HX OF CAD AND DM THE PT DENIES CHEST P[AINS OR SOB Objective - Vital Signs/Intake and Output Vital Signs (last 24 hours): Temp Pulse Resp BP Pulse Ox 97.7 F 128 H 18 104/56 L 93 L 12/30/17 09:00 12/30/17 09:00 12/30/17 09:00 12/30/17 09:00 12/30/17 09:00 - Medications Medications: Current Medications Aspirin (Aspirin Chewable) 81 mg PO DAILY [facility] Last Admin: 12/30/17 09:12 Dose: 81 mg Glipizide (Glucotrol) 10 mg PO DAILY [facility] Last Admin: 12/30/17 09:13 Dose: Not Given Guaifenesin/Dextromethorphan (Mucinex-Dm 600-30 Mg) 1 tab PO BID [facility] Last Admin: 12/30/17 09:15 Dose: 1 tab Insulin Detemir (Levemir) 8 units SC [facility] Last Admin: 12/29/17 22:42 Dose: 8 units Insulin Human Lispro (Humalog) 0 units SC [facility]; Protocol Last Admin: 12/30/17 06:30 Dose: Not Given Levalbuterol HCl (Xopenex) 0.63 mg INH RQ8 PRN PRN Reason: Shortness of Breath Levothyroxine Sodium (Synthroid) 25 mcg PO DAILY@0630 [facility] Last Admin: 12/30/17 06:22 Dose: 25 mcg Ondansetron HCl (Zofran Inj) 4 mg IVP Q6 PRN PRN Reason: Nausea/Vomiting Pantoprazole Sodium (Protonix Ec Tab) 40 mg PO DAILY [facility] Last Admin: 12/30/17 09:15 Dose: 40 mg Risperidone (Risperdal Tab) 2 mg PO Q12 [facility] Last Admin: 12/30/17 09:15 Dose: 2 mg Sitagliptin Phosphate (Januvia) 100 mg PO DAILY [facility] Last Admin: 12/30/17 09:14 Dose: Not Given Trazodone HCl (Desyrel) 50 mg PO HS PRN PRN Reason: Insomnia Last Admin: 12/26/17 21:51 Dose: 50 mg - Labs Labs: 12/30/17 06:30 12/30/17 06:30 - Constitutional Appears: No Acute Distress - Head Exam Head Exam: ATRAUMATIC, NORMAL INSPECTION, NORMOCEPHALIC - Eye Exam Eye Exam: EOMI, Normal appearance, PERRL Pupil Exam: NORMAL ACCOMODATION, PERRL - ENT Exam ENT Exam: Mucous Membranes Moist, Normal Exam - Neck Exam Neck Exam: Full ROM, Normal Inspection. absent: Lymphadenopathy - Respiratory Exam Respiratory Exam: Prolonged Expiratory Phase, Rales, NORMAL BREATHING PATTERN - Cardiovascular Exam Cardiovascular Exam: REGULAR RHYTHM, +S1, +S2. absent: Murmur - GI/Abdominal Exam GI & Abdominal Exam: Soft, Normal Bowel Sounds. absent: Tenderness - Rectal Exam Rectal Exam: NORMAL INSPECTION - Extremities Exam Extremities Exam: Full ROM, Normal Capillary Refill, Normal Inspection. absent: Joint Swelling, Pedal Edema - Back Exam Back Exam: NORMAL INSPECTION - Neurological Exam Neurological Exam: Alert, Awake, CN II-XII Intact, Normal Gait, Oriented x3 - Psychiatric Exam Psychiatric exam: Normal Affect, Normal Mood - Skin Skin Exam: Dry, Intact, Normal Color, Warm Assessment and Plan - Assessment and Plan (Free Text) Assessment: PNEUMONIA--CLINICALLY IMPROVING NEW BILATERAL PLEURAL EFFUSIONS ON CT SCAN OF CHEST--?FLUID OVERLOAD/PNEUMONIA--DOUBT MALIGNANCY SINCE EFFUSION IS SO NEW HX OF PSCH PROBLEMS HX OF CAD AND DM Plan: CONTINUE ANTIBIOTIC RX MAY NEED DIURETIC RX IF EFFUSION WORSENS/PERSISTS THORACENTESES IF EFFUSION DOES NOT RESOLVE.
--- NOTE | 2017-12-30 12:54 | CP.PCM.PN ---
Subjective - Date & Time of Evaluation Date of Evaluation: 12/30/17 Time of Evaluation: 08:00 - Subjective Subjective: DISCUSSED WITHDR VANESA CT REVIEWED AFB SMEARS PENDIBWORSENING MG INFILTRATE + EFFUSIONS DENIES FEVER, HEMOPTYSIS AFB SMEARS PENDING- MAY NEED FOB Objective - Vital Signs/Intake and Output Vital Signs (last 24 hours): Temp Pulse Resp BP Pulse Ox 98 F 89 18 110/65 100 12/30/17 11:58 12/30/17 11:58 12/30/17 11:58 12/30/17 11:58 12/30/17 11:58 - Medications Medications: Current Medications Aspirin (Aspirin Chewable) 81 mg PO DAILY [facility] Last Admin: 12/30/17 09:12 Dose: 81 mg Glipizide (Glucotrol) 10 mg PO DAILY [facility] Last Admin: 12/30/17 09:13 Dose: Not Given Guaifenesin/Dextromethorphan (Mucinex-Dm 600-30 Mg) 1 tab PO BID [facility] Last Admin: 12/30/17 09:15 Dose: 1 tab Insulin Detemir (Levemir) 8 units SC HS [facility] Last Admin: 12/29/17 22:42 Dose: 8 units Insulin Human Lispro (Humalog) 0 units SC [facility]; Protocol Last Admin: 12/30/17 06:30 Dose: Not Given Levalbuterol HCl (Xopenex) 0.63 mg INH RQ8 PRN PRN Reason: Shortness of Breath Levothyroxine Sodium (Synthroid) 25 mcg PO DAILY@0630 [facility] Last Admin: 12/30/17 06:22 Dose: 25 mcg Ondansetron HCl (Zofran Inj) 4 mg IVP Q6 PRN PRN Reason: Nausea/Vomiting Pantoprazole Sodium (Protonix Ec Tab) 40 mg PO DAILY [facility] Last Admin: 12/30/17 09:15 Dose: 40 mg Risperidone (Risperdal Tab) 2 mg PO Q12 [facility] Last Admin: 12/30/17 09:15 Dose: 2 mg Sitagliptin Phosphate (Januvia) 100 mg PO DAILY [facility] Last Admin: 12/30/17 09:14 Dose: Not Given Trazodone HCl (Desyrel) 50 mg PO HS PRN PRN Reason: Insomnia Last Admin: 12/26/17 21:51 Dose: 50 mg - Labs Labs: 12/30/17 06:30 12/30/17 06:30 - Constitutional Appears: Non-toxic, Cachectic, Chronically Ill - Head Exam Head Exam: NORMOCEPHALIC - Eye Exam Eye Exam: PERRL. absent: Scleral icterus - ENT Exam ENT Exam: Mucous Membranes Dry - Neck Exam Neck Exam: absent: Lymphadenopathy - Respiratory Exam Respiratory Exam: Decreased Breath Sounds, Rhonchi - Cardiovascular Exam Cardiovascular Exam: Tachycardia, REGULAR RHYTHM, +S1, +S2 - GI/Abdominal Exam GI & Abdominal Exam: Distended, Soft. absent: Tenderness - Rectal Exam Rectal Exam: Deferred - Exam Exam: NORMAL INSPECTION - Extremities Exam Extremities Exam: absent: Pedal Edema - Back Exam Back Exam: absent: CVA tenderness (L), CVA tenderness (R), paraspinal tenderness - Neurological Exam Neurological Exam: Alert, Awake, CN II-XII Intact, Oriented x3 - Psychiatric Exam Psychiatric exam: Depressed - Skin Skin Exam: Dry, Intact Assessment and Plan (1) Dehydration Status: Acute (2) Pneumonia Status: Acute (3) Bipolar disorder Status: Acute (4) Diabetes mellitus with hyperglycemia Status: Acute (5) Fever of unknown origin Status: Acute (6) Hyperglycemia Status: Acute (7) Leukocytosis Status: Acute (8) Physical deconditioning Status: Acute (9) Schizoaffective disorder Status: Acute (10) Dementia Status: Chronic (11) Schizophrenia Status: Chronic - Assessment and Plan (Free Text) Assessment: CT REVIEWED AFB SMEARS PENDIBWORSENING MG INFILTRATE + EFFUSIONS DENIES FEVER, HEMOPTYSIS AFB SMEARS PENDING- ALL CULTURES NEG THUS FAR MAY NEED FOB/ THORACENTESIS
--- NOTE | 2017-12-30 13:42 | PN ---
DATE: 12/30/2017 SUBJECTIVE: The patient seen and examined. Interim events noted. The patient remains in progressive care unit on telemetry monitoring. The patient feels okay. No chest pain. No shortness of breath. Occasional coughing. PHYSICAL EXAMINATION: GENERAL: The patient is in no acute distress. VITAL SIGNS: Stable. HEART: S1 and S2, normal and regular. LUNGS: Good bilateral air exchange. No rhonchi. No rales. ABDOMEN: Soft, nontender. EXTREMITIES: No calf swelling. No tenderness. No acute ischemia. CENTRAL NERVOUS SYSTEM: Exam is essentially unchanged. DIAGNOSTIC DATA: Available diagnostic data reviewed. Telemetry monitoring does not show any significant arrhythmias. CAT scan of chest shows bilateral effusion, left more than right. ASSESSMENT AND PLAN: Overall, the patient is clinically stable. Breath sounds, bilateral effusion and possible infiltrate on CAT scan. Pulmonary consult. Case and plan discussed with the patient; however, the patient is not able to understand his medical condition. Plan as ordered. Agusitn Alvarez MD
[2017-12-30] MEDS: Piperacillin/Tazobact 3.375 GM in Sodium Chloride 0.9% 100 ML IVPB SCH ×2 (16:31→22:09)
[2017-12-30] MEDS: Insulin Detemir 100 Units/ml Inj SC SCH (22:11)
[2017-12-31] MEDS: Piperacillin/Tazobact 3.375 GM in Sodium Chloride 0.9% 100 ML IVPB SCH ×4 (04:35→22:15)
[2017-12-31] MEDS: Levothyroxine 25 MCG TAB PO SCH (05:35)
[2017-12-31 05:44] LABS: HEMOGLOBIN 11.6 g/dL (12.0-18.0); MEAN CELL VOLUME 91.1 fl (80.0-94.0); MEAN CORPUSCULAR HEMOGLOBIN 29.8 pg (27.0-31.0); MEAN CORPUSCULAR HGB CONC 32.7 g/dL (33.0-37.0); RBC 3.9 Mil/uL (4.40-5.90); RED CELL DISTRIBUTION WIDTH 14.8 % (11.5-14.5); WHITE BLOOD COUNT 13.2 K/uL (4.8-10.8)
[2017-12-31 06:11] LABS: ALB/GLOB RATIO 0.7 (1.0-2.1); ALBUMIN 2.8 g/dL (3.5-5.0); ALT/SGPT 38 U/L (21-72); AST/SGOT 18 U/L (17-59); BLOOD UREA NITROGEN 17 mg/dl (9-20); CALCIUM 8.3 mg/dL (8.4-10.2); GFR NON-AFRICAN AMERICAN > 60
[2017-12-31] MEDS: Pantoprazole 40 mg EC Tab PO SCH (09:10)
[2017-12-31] MEDS: guaiFENesin-DM 600-30 mg ER Tab PO SCH ×2 (09:10→16:20)
[2017-12-31] MEDS: Insulin Lispro (humaLOG) 100 Units/ml Inj SC SCH ×4 (09:12→22:15)
--- NOTE | 2017-12-31 09:42 | CP.PCM.PN ---
Subjective - Date & Time of Evaluation Date of Evaluation: 12/31/17 Time of Evaluation: 09:42 - Subjective Subjective: NO NEW CLINICAL FINDINGS DENIES CHEST PAINS/SOB Objective - Vital Signs/Intake and Output Vital Signs (last 24 hours): Temp Pulse Resp BP Pulse Ox 98.3 F 94 H 18 111/61 98 12/31/17 08:00 12/31/17 08:00 12/31/17 08:00 12/31/17 08:00 12/31/17 04:53 - Medications Medications: Current Medications Aspirin (Aspirin Chewable) 81 mg PO DAILY [facility] Last Admin: 12/31/17 09:10 Dose: 81 mg Glipizide (Glucotrol) 10 mg PO DAILY [facility] Last Admin: 12/31/17 09:10 Dose: 10 mg Guaifenesin/Dextromethorphan (Mucinex-Dm 600-30 Mg) 1 tab PO BID [facility] Last Admin: 12/31/17 09:10 Dose: 1 tab Piperacillin Sod/Tazobactam (Sod 3.375 gm/ Sodium Chloride) 100 mls @ 100 mls/hr IVPB Q6 [facility]; Protocol Last Admin: 12/31/17 09:16 Dose: 100 mls/hr Insulin Detemir (Levemir) 8 units SC HS [facility] Last Admin: 12/30/17 22:11 Dose: 8 units Insulin Human Lispro (Humalog) 0 units SC ACHS [facility]; Protocol Last Admin: 12/31/17 09:12 Dose: 3 units Levalbuterol HCl (Xopenex) 0.63 mg INH RQ8 PRN PRN Reason: Shortness of Breath Levothyroxine Sodium (Synthroid) 25 mcg PO DAILY@0630 [facility] Last Admin: 12/31/17 05:35 Dose: 25 mcg Ondansetron HCl (Zofran Inj) 4 mg IVP Q6 PRN PRN Reason: Nausea/Vomiting Pantoprazole Sodium (Protonix Ec Tab) 40 mg PO DAILY [facility] Last Admin: 12/31/17 09:10 Dose: 40 mg Risperidone (Risperdal Tab) 2 mg PO Q12 [facility] Last Admin: 12/31/17 09:10 Dose: 2 mg Sitagliptin Phosphate (Januvia) 100 mg PO DAILY [facility] Last Admin: 12/31/17 09:10 Dose: 100 mg Trazodone HCl (Desyrel) 50 mg PO HS PRN PRN Reason: Insomnia Last Admin: 12/26/17 21:51 Dose: 50 mg - Labs Labs: 12/31/17 04:20 12/31/17 04:20 - Constitutional Appears: No Acute Distress - Head Exam Head Exam: ATRAUMATIC, NORMAL INSPECTION, NORMOCEPHALIC - Eye Exam Eye Exam: EOMI, Normal appearance, PERRL Pupil Exam: NORMAL ACCOMODATION, PERRL - ENT Exam ENT Exam: Mucous Membranes Moist, Normal Exam - Neck Exam Neck Exam: Full ROM, Normal Inspection. absent: Lymphadenopathy - Respiratory Exam Respiratory Exam: Rales, NORMAL BREATHING PATTERN - Cardiovascular Exam Cardiovascular Exam: REGULAR RHYTHM, +S1, +S2. absent: Murmur - GI/Abdominal Exam GI & Abdominal Exam: Soft, Normal Bowel Sounds. absent: Tenderness - Rectal Exam Rectal Exam: NORMAL INSPECTION - Extremities Exam Extremities Exam: Full ROM, Normal Capillary Refill, Normal Inspection. absent: Joint Swelling, Pedal Edema - Back Exam Back Exam: NORMAL INSPECTION - Neurological Exam Neurological Exam: Alert, Awake, CN II-XII Intact, Normal Gait, Oriented x3 - Psychiatric Exam Psychiatric exam: Normal Affect, Normal Mood - Skin Skin Exam: Dry, Intact, Normal Color, Warm Assessment and Plan - Assessment and Plan (Free Text) Assessment: BILATERAL PLEURAL EFFUSIONS PROBABLY DUE TO COMBINATION OF PNEUMONIA AND FLUID OVERLOAD Plan: REPEAT CXR TODAY HOLD FURTHER IV FLUIDS
--- NOTE | 2017-12-31 10:43 | CP.PCM.PN ---
Subjective - Date & Time of Evaluation Date of Evaluation: 12/31/17 Time of Evaluation: 07:00 - Subjective Subjective: AFB SMEARS PENDING WORSENING MG INFILTRATE + EFFUSIONS DENIES FEVER, HEMOPTYSIS Objective - Vital Signs/Intake and Output Vital Signs (last 24 hours): Temp Pulse Resp BP Pulse Ox 98.3 F 94 H 18 111/61 98 12/31/17 08:00 12/31/17 08:00 12/31/17 08:00 12/31/17 08:00 12/31/17 04:53 - Medications Medications: Current Medications Aspirin (Aspirin Chewable) 81 mg PO DAILY [facility] Last Admin: 12/31/17 09:10 Dose: 81 mg Glipizide (Glucotrol) 10 mg PO DAILY [facility] Last Admin: 12/31/17 09:10 Dose: 10 mg Guaifenesin/Dextromethorphan (Mucinex-Dm 600-30 Mg) 1 tab PO BID [facility] Last Admin: 12/31/17 09:10 Dose: 1 tab Piperacillin Sod/Tazobactam (Sod 3.375 gm/ Sodium Chloride) 100 mls @ 100 mls/hr IVPB Q6 [facility]; Protocol Last Admin: 12/31/17 09:16 Dose: 100 mls/hr Insulin Detemir (Levemir) 8 units SC HS [facility] Last Admin: 12/30/17 22:11 Dose: 8 units Insulin Human Lispro (Humalog) 0 units SC ACHS [facility]; Protocol Last Admin: 12/31/17 09:12 Dose: 3 units Levalbuterol HCl (Xopenex) 0.63 mg INH RQ8 PRN PRN Reason: Shortness of Breath Levothyroxine Sodium (Synthroid) 25 mcg PO DAILY@0630 [facility] Last Admin: 12/31/17 05:35 Dose: 25 mcg Ondansetron HCl (Zofran Inj) 4 mg IVP Q6 PRN PRN Reason: Nausea/Vomiting Pantoprazole Sodium (Protonix Ec Tab) 40 mg PO DAILY [facility] Last Admin: 12/31/17 09:10 Dose: 40 mg Risperidone (Risperdal Tab) 2 mg PO Q12 [facility] Last Admin: 12/31/17 09:10 Dose: 2 mg Sitagliptin Phosphate (Januvia) 100 mg PO DAILY [facility] Last Admin: 12/31/17 09:10 Dose: 100 mg Trazodone HCl (Desyrel) 50 mg PO HS PRN PRN Reason: Insomnia Last Admin: 12/26/17 21:51 Dose: 50 mg - Labs Labs: 12/31/17 04:20 12/31/17 04:20 - Constitutional Appears: Non-toxic, Confused, Cachectic, Chronically Ill - Head Exam Head Exam: NORMOCEPHALIC - Eye Exam Eye Exam: PERRL. absent: Scleral icterus - ENT Exam ENT Exam: Mucous Membranes Dry - Neck Exam Neck Exam: absent: Lymphadenopathy - Respiratory Exam Respiratory Exam: Decreased Breath Sounds, Rhonchi - Cardiovascular Exam Cardiovascular Exam: REGULAR RHYTHM - GI/Abdominal Exam GI & Abdominal Exam: Distended, Soft. absent: Tenderness - Rectal Exam Rectal Exam: Deferred - Exam Exam: NORMAL INSPECTION - Extremities Exam Extremities Exam: absent: Pedal Edema - Back Exam Back Exam: absent: CVA tenderness (L), CVA tenderness (R) - Neurological Exam Neurological Exam: Alert, Altered, Awake, CN II-XII Intact - Psychiatric Exam Psychiatric exam: Depressed Assessment and Plan (1) Dehydration Status: Acute (2) Pneumonia Status: Acute (3) Bipolar disorder Status: Acute (4) Diabetes mellitus with hyperglycemia Status: Acute (5) Fever of unknown origin Status: Acute (6) Hyperglycemia Status: Acute (7) Leukocytosis Status: Acute (8) Physical deconditioning Status: Acute (9) Schizoaffective disorder Status: Acute (10) Dementia Status: Chronic (11) Schizophrenia Status: Chronic - Assessment and Plan (Free Text) Assessment: await AFB smears cont iv antibiotics
--- NOTE | 2017-12-31 12:32 | PN ---
DATE: 12/31/2017 SUBJECTIVE: The patient is seen and examined. Interim events noted. Consults noted and appreciated. Pulmonary followup and intervention noted and appreciated. The patient remains in progressive care unit on telemetry monitoring in isolation room. The patient feels okay. Denies any specific complaint. No chest pain, no shortness of breath, no cough. No problem passing urine, stool. No problem . PHYSICAL EXAMINATION: GENERAL: The patient is in no acute distress. VITAL SIGNS: Stable. HEART: S1 and S2, normal and regular. LUNGS: Good bilateral air exchange. ABDOMEN: Soft, nontender. EXTREMITIES: No edema. No calf swelling. No tenderness. No acute ischemia. 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 DIAGNOSTIC DATA: Available diagnostic data reviewed. WBC count still remains elevated. ASSESSMENT AND PLAN: Overall, the patient is clinically stable. As suggested by pulmonary consult, the patient might be fluid overload and also there is no edema. We will order echocardiogram Plan as ordered. Case and plan discussed with the patient. The patient is not able to comprehend medical issues very well. Agustin Alvarez MD
--- NOTE | 2017-12-31 15:04 | RAD ---
Date of service: 12/31/2017 HISTORY: PLEURAL EFFUSION COMPARISON: 12/27/2017 TECHNIQUE: Chest PA and lateral FINDINGS: LUNGS: Mild improvement in extent of left upper lobe opacity. No other abnormal opacity elsewhere. Right infrahilar opacity likely related to a cardiac monitoring lead. PLEURA: No definite pleural effusion. Evaluation limited due to oblique positioning in the lateral projection. CARDIOVASCULAR: No aortic atherosclerotic calcification present OSSEOUS STRUCTURES: No significant abnormalities. VISUALIZED UPPER ABDOMEN: Normal. OTHER FINDINGS: None. IMPRESSION: Mild improvement in left upper lobe opacity. No definite pleural effusion.
[2017-12-31] MEDS: Insulin Detemir 100 Units/ml Inj SC SCH (22:16)
[2018-01-01] MEDS: Piperacillin/Tazobact 3.375 GM in Sodium Chloride 0.9% 100 ML IVPB SCH ×4 (03:36→21:22)
[2018-01-01 06:02] LABS: HEMOGLOBIN 12.5 g/dL (12.0-18.0); MEAN CELL VOLUME 91.4 fl (80.0-94.0); MEAN CORPUSCULAR HEMOGLOBIN 30.4 pg (27.0-31.0); MEAN CORPUSCULAR HGB CONC 33.3 g/dL (33.0-37.0); RBC 4.1 Mil/uL (4.40-5.90); RED CELL DISTRIBUTION WIDTH 15.2 % (11.5-14.5); WHITE BLOOD COUNT 15.1 K/uL (4.8-10.8)
[2018-01-01] MEDS: Levothyroxine 25 MCG TAB PO SCH (06:04)
[2018-01-01 06:09] LABS: ALB/GLOB RATIO 0.7 (1.0-2.1); ALBUMIN 3.3 g/dL (3.5-5.0); ALT/SGPT 34 U/L (21-72); AST/SGOT 19 U/L (17-59); BLOOD UREA NITROGEN 24 mg/dl (9-20); CALCIUM 8.7 mg/dL (8.4-10.2); GFR NON-AFRICAN AMERICAN > 60
--- NOTE | 2018-01-01 08:43 | CP.PCM.PN ---
Subjective - Date & Time of Evaluation Date of Evaluation: 01/01/18 Time of Evaluation: 08:43 - Subjective Subjective: NO CHEST PAINS/SOB NO COUGH FEELS BETTER Objective - Vital Signs/Intake and Output Vital Signs (last 24 hours): Temp Pulse Resp BP Pulse Ox 97.5 F L 119 H 18 118/71 96 01/01/18 08:00 01/01/18 08:00 01/01/18 08:00 01/01/18 08:00 01/01/18 08:00 - Medications Medications: Current Medications Aspirin (Aspirin Chewable) 81 mg PO DAILY [facility] Last Admin: 12/31/17 09:10 Dose: 81 mg Glipizide (Glucotrol) 10 mg PO DAILY [facility] Last Admin: 12/31/17 09:10 Dose: 10 mg Guaifenesin/Dextromethorphan (Mucinex-Dm 600-30 Mg) 1 tab PO BID [facility] Last Admin: 12/31/17 16:20 Dose: 1 tab Piperacillin Sod/Tazobactam (Sod 3.375 gm/ Sodium Chloride) 100 mls @ 100 mls/hr IVPB Q6 [facility]; Protocol Last Admin: 01/01/18 03:36 Dose: 100 mls/hr Insulin Detemir (Levemir) 8 units SC HS [facility] Last Admin: 12/31/17 22:16 Dose: 8 units Insulin Human Lispro (Humalog) 0 units SC ACHS [facility]; Protocol Last Admin: 12/31/17 22:15 Dose: Not Given Levalbuterol HCl (Xopenex) 0.63 mg INH RQ8 PRN PRN Reason: Shortness of Breath Levothyroxine Sodium (Synthroid) 25 mcg PO DAILY@0630 [facility] Last Admin: 01/01/18 06:04 Dose: 25 mcg Ondansetron HCl (Zofran Inj) 4 mg IVP Q6 PRN PRN Reason: Nausea/Vomiting Pantoprazole Sodium (Protonix Ec Tab) 40 mg PO DAILY [facility] Last Admin: 12/31/17 09:10 Dose: 40 mg Risperidone (Risperdal Tab) 2 mg PO Q12 [facility] Last Admin: 12/31/17 22:16 Dose: 2 mg Sitagliptin Phosphate (Januvia) 100 mg PO DAILY [facility] Last Admin: 12/31/17 09:10 Dose: 100 mg Trazodone HCl (Desyrel) 50 mg PO HS PRN PRN Reason: Insomnia Last Admin: 12/26/17 21:51 Dose: 50 mg - Labs Labs: 01/01/18 04:25 01/01/18 04:25 - Constitutional Appears: No Acute Distress - Head Exam Head Exam: ATRAUMATIC, NORMAL INSPECTION, NORMOCEPHALIC - Eye Exam Eye Exam: EOMI, Normal appearance, PERRL Pupil Exam: NORMAL ACCOMODATION, PERRL - ENT Exam ENT Exam: Mucous Membranes Moist, Normal Exam - Neck Exam Neck Exam: Full ROM, Normal Inspection. absent: Lymphadenopathy - Respiratory Exam Respiratory Exam: Rales, NORMAL BREATHING PATTERN - Cardiovascular Exam Cardiovascular Exam: REGULAR RHYTHM, +S1, +S2. absent: Murmur - GI/Abdominal Exam GI & Abdominal Exam: Soft, Normal Bowel Sounds. absent: Tenderness - Rectal Exam Rectal Exam: NORMAL INSPECTION - Extremities Exam Extremities Exam: Full ROM, Normal Capillary Refill, Normal Inspection. absent: Joint Swelling, Pedal Edema - Back Exam Back Exam: NORMAL INSPECTION - Neurological Exam Neurological Exam: Alert, Awake, CN II-XII Intact, Normal Gait, Oriented x3 - Psychiatric Exam Psychiatric exam: Normal Affect, Normal Mood - Skin Skin Exam: Dry, Intact, Normal Color, Warm Assessment and Plan - Assessment and Plan (Free Text) Assessment: PNEUMONIA IMPROVING PLEURAL EFFUSION RESOLVED Plan: AGREE WITH PRESENT RX
[2018-01-01] MEDS: Pantoprazole 40 mg EC Tab PO SCH (09:42)
[2018-01-01] MEDS: guaiFENesin-DM 600-30 mg ER Tab PO SCH ×2 (09:42→16:47)
[2018-01-01] MEDS: Insulin Lispro (humaLOG) 100 Units/ml Inj SC SCH ×5 (09:51→23:01)
--- NOTE | 2018-01-01 10:33 | CP.PCM.PN ---
Subjective - Date & Time of Evaluation Date of Evaluation: 01/01/18 Time of Evaluation: 08:00 - Subjective Subjective: improving await afb smears Objective - Vital Signs/Intake and Output Vital Signs (last 24 hours): Temp Pulse Resp BP Pulse Ox 97.5 F L 119 H 18 118/71 96 01/01/18 08:00 01/01/18 08:00 01/01/18 08:00 01/01/18 08:00 01/01/18 08:00 - Medications Medications: Current Medications Aspirin (Aspirin Chewable) 81 mg PO DAILY [facility] Last Admin: 01/01/18 09:42 Dose: 81 mg Glipizide (Glucotrol) 10 mg PO DAILY [facility] Last Admin: 01/01/18 09:42 Dose: 10 mg Guaifenesin/Dextromethorphan (Mucinex-Dm 600-30 Mg) 1 tab PO BID [facility] Last Admin: 01/01/18 09:42 Dose: 1 tab Piperacillin Sod/Tazobactam (Sod 3.375 gm/ Sodium Chloride) 100 mls @ 100 mls/hr IVPB Q6 [facility]; Protocol Last Admin: 01/01/18 09:41 Dose: 100 mls/hr Insulin Detemir (Levemir) 8 units SC HS [facility] Last Admin: 12/31/17 22:16 Dose: 8 units Insulin Human Lispro (Humalog) 0 units SC [facility]; Protocol Last Admin: 01/01/18 09:51 Dose: Not Given Levalbuterol HCl (Xopenex) 0.63 mg INH RQ8 PRN PRN Reason: Shortness of Breath Levothyroxine Sodium (Synthroid) 25 mcg PO DAILY@0630 [facility] Last Admin: 01/01/18 06:04 Dose: 25 mcg Ondansetron HCl (Zofran Inj) 4 mg IVP Q6 PRN PRN Reason: Nausea/Vomiting Pantoprazole Sodium (Protonix Ec Tab) 40 mg PO DAILY [facility] Last Admin: 01/01/18 09:42 Dose: 40 mg Risperidone (Risperdal Tab) 2 mg PO Q12 [facility] Last Admin: 01/01/18 09:42 Dose: 2 mg Sitagliptin Phosphate (Januvia) 100 mg PO DAILY [facility] Last Admin: 01/01/18 09:42 Dose: 100 mg Trazodone HCl (Desyrel) 50 mg PO HS PRN PRN Reason: Insomnia Last Admin: 12/26/17 21:51 Dose: 50 mg - Labs Labs: 01/01/18 04:25 01/01/18 04:25 - Constitutional Appears: Non-toxic, Cachectic, Chronically Ill - Head Exam Head Exam: NORMOCEPHALIC - Eye Exam Eye Exam: PERRL - ENT Exam ENT Exam: Mucous Membranes Dry - Neck Exam Neck Exam: absent: Lymphadenopathy - Respiratory Exam Respiratory Exam: Decreased Breath Sounds - Cardiovascular Exam Cardiovascular Exam: REGULAR RHYTHM - GI/Abdominal Exam GI & Abdominal Exam: Distended Assessment and Plan (1) Dehydration Status: Acute (2) Pneumonia Status: Acute (3) Bipolar disorder Status: Acute (4) Diabetes mellitus with hyperglycemia Status: Acute (5) Fever of unknown origin Status: Acute (6) Hyperglycemia Status: Acute (7) Leukocytosis Status: Acute (8) Physical deconditioning Status: Acute (9) Schizoaffective disorder Status: Acute (10) Dementia Status: Chronic (11) Schizophrenia Status: Chronic
--- NOTE | 2018-01-01 12:40 | CP.PCM.PN ---
<Kuldeep Jimenez - Last Filed: 01/01/18 17:40> Subjective - Date & Time of Evaluation Date of Evaluation: 01/01/18 Time of Evaluation: 07:54 - Subjective Subjective: Patient seen and examined this morning with Dr Alvarez, patient reports feeling better, denies fever, chills, sob or CP. No acute overnight events Objective - Vital Signs/Intake and Output Vital Signs (last 24 hours): Temp Pulse Resp BP Pulse Ox 97.5 F L 119 H 18 118/71 96 01/01/18 08:00 01/01/18 09:00 01/01/18 08:00 01/01/18 08:00 01/01/18 08:00 - Medications Medications: Current Medications Aspirin (Aspirin Chewable) 81 mg PO DAILY [facility] Last Admin: 01/01/18 09:42 Dose: 81 mg Glipizide (Glucotrol) 10 mg PO DAILY [facility] Last Admin: 01/01/18 09:42 Dose: 10 mg Guaifenesin/Dextromethorphan (Mucinex-Dm 600-30 Mg) 1 tab PO BID [facility] Last Admin: 01/01/18 09:42 Dose: 1 tab Piperacillin Sod/Tazobactam (Sod 3.375 gm/ Sodium Chloride) 100 mls @ 100 mls/hr IVPB Q6 [facility]; Protocol Last Admin: 01/01/18 09:41 Dose: 100 mls/hr Insulin Detemir (Levemir) 8 units SC HS [facility] Last Admin: 12/31/17 22:16 Dose: 8 units Insulin Human Lispro (Humalog) 0 units SC ACHS [facility]; Protocol Last Admin: 01/01/18 09:51 Dose: Not Given Levalbuterol HCl (Xopenex) 0.63 mg INH RQ8 PRN PRN Reason: Shortness of Breath Levothyroxine Sodium (Synthroid) 25 mcg PO DAILY@0630 [facility] Last Admin: 01/01/18 06:04 Dose: 25 mcg Ondansetron HCl (Zofran Inj) 4 mg IVP Q6 PRN PRN Reason: Nausea/Vomiting Pantoprazole Sodium (Protonix Ec Tab) 40 mg PO DAILY [facility] Last Admin: 01/01/18 09:42 Dose: 40 mg Risperidone (Risperdal Tab) 2 mg PO Q12 [facility] Last Admin: 01/01/18 09:42 Dose: 2 mg Sitagliptin Phosphate (Januvia) 100 mg PO DAILY [facility] Last Admin: 01/01/18 09:42 Dose: 100 mg Trazodone HCl (Desyrel) 50 mg PO HS PRN PRN Reason: Insomnia Last Admin: 12/26/17 21:51 Dose: 50 mg - Labs Labs: 01/01/18 04:25 01/01/18 04:25 - Constitutional Appears: No Acute Distress - Head Exam Head Exam: NORMAL INSPECTION - Respiratory Exam Respiratory Exam: Clear to Ausculation Bilateral - Cardiovascular Exam Cardiovascular Exam: REGULAR RHYTHM, +S1, +S2 - GI/Abdominal Exam GI & Abdominal Exam: Soft. absent: Distended, Tenderness - Extremities Exam Extremities Exam: absent: Calf Tenderness, Pedal Edema - Neurological Exam Neurological Exam: Alert, Awake - Skin Skin Exam: Dry, Warm Assessment and Plan - Assessment and Plan (Free Text) Assessment: 72 year old male with a PMHx of schizoaffective disorder, dementia and DM admitted pneumonia, unspecified. Plan: - afebrile, VSS - Echo: no acute changes, EF 55-60% - continue vanco and zosyn IV as per ID - ID on board, recommendations appreciated - Pulmonology on board, input appreciated - IV fluids - Duonebs - blood cx and urine cx negative - f/u sputum cultures - f/u AM labs - Rest of the plan as ordered <Agustin Alvarez K - Last Filed: 01/05/18 08:22> Objective - Vital Signs/Intake and Output Vital Signs (last 24 hours): Temp Pulse Resp BP Pulse Ox 98.1 F 98 H 19 118/63 99 01/05/18 04:50 01/05/18 04:50 01/05/18 04:50 01/05/18 04:50 01/05/18 04:50 - Medications Medications: Current Medications Acetylcysteine (Mucomyst 10% 4ml) 3 ml IH RTID [facility] Last Admin: 01/05/18 07:45 Dose: 3 ml Aspirin (Aspirin Chewable) 81 mg PO DAILY [facility] Last Admin: 01/05/18 08:14 Dose: 81 mg Glipizide (Glucotrol) 10 mg PO DAILY [facility] Last Admin: 01/05/18 08:14 Dose: 10 mg Guaifenesin/Dextromethorphan (Mucinex-Dm 600-30 Mg) 1 tab PO BID [facility] Last Admin: 01/05/18 08:14 Dose: 1 tab Piperacillin Sod/Tazobactam (Sod 3.375 gm/ Sodium Chloride) 100 mls @ 100 mls/hr IVPB Q6 [facility]; Protocol Last Admin: 01/05/18 04:37 Dose: 100 mls/hr Insulin Detemir (Levemir) 8 units SC HS [facility] Last Admin: 01/04/18 21:43 Dose: 8 units Insulin Human Lispro (Humalog) 0 units SC ACHS [facility]; Protocol Last Admin: 01/04/18 21:44 Dose: 2 units Levalbuterol HCl (Xopenex) 0.63 mg INH RQ8 PRN PRN Reason: Shortness of Breath Last Admin: 01/05/18 07:45 Dose: 0.63 mg Levothyroxine Sodium (Synthroid) 25 mcg PO DAILY@0630 [facility] Last Admin: 01/05/18 05:43 Dose: 25 mcg Nystatin (Nystop Topical Powder) 1 applic TOP TID [facility] Last Admin: 01/05/18 08:15 Dose: 1 applic Ondansetron HCl (Zofran Inj) 4 mg IVP Q6 PRN PRN Reason: Nausea/Vomiting Pantoprazole Sodium (Protonix Ec Tab) 40 mg PO DAILY [facility] Last Admin: 01/05/18 08:16 Dose: 40 mg Risperidone (Risperdal Tab) 2 mg PO Q12 [facility] Last Admin: 01/05/18 08:16 Dose: 2 mg Sitagliptin Phosphate (Januvia) 100 mg PO DAILY [facility] Last Admin: 01/05/18 08:14 Dose: 100 mg Trazodone HCl (Desyrel) 50 mg PO HS PRN PRN Reason: Insomnia Last Admin: 12/26/17 21:51 Dose: 50 mg - Labs Labs: 01/04/18 04:25 01/04/18 04:25 Assessment and Plan - Assessment and Plan (Free Text) Assessment: Patient was personally seen and examined by me in rounds with residents. Available labs and diagnostic data reviewed. Case, Patient's condition and management plan discussed with residents in rounds. Agree with resident's progress note. Plan: As ordered.
[2018-01-01] MEDS: Insulin Detemir 100 Units/ml Inj SC SCH (22:03)
[2018-01-02] MEDS: Piperacillin/Tazobact 3.375 GM in Sodium Chloride 0.9% 100 ML IVPB SCH ×4 (03:54→22:18)
[2018-01-02] MEDS: Levothyroxine 25 MCG TAB PO SCH (06:17)
[2018-01-02] MEDS: Insulin Lispro (humaLOG) 100 Units/ml Inj SC SCH ×4 (06:47→22:31)
[2018-01-02] MEDS: guaiFENesin-DM 600-30 mg ER Tab PO SCH ×2 (09:09→16:11)
[2018-01-02] MEDS: Pantoprazole 40 mg EC Tab PO SCH (09:09)
--- NOTE | 2018-01-02 11:52 | RAD ---
Date of service: 01/02/2018 HISTORY: f/u pna COMPARISON: 12/31/2017 TECHNIQUE: Chest PA and lateral FINDINGS: LUNGS: The patchy coalescent opacities in the left perihilar and left upper lobe have slightly progressed since the prior exam. Some scarring and retraction left hilum is also suggested. Right infrahilar perihilar mild bronchiectasis also suggested. PLEURA: No significant pleural effusion identified. No pneumothorax apparent. Possible right lateral pleural thickening and/or contiguous rib bulbous change similar to 12/31/2017. CARDIOVASCULAR: There is presence of aortic atherosclerotic calcification on x-ray. OSSEOUS STRUCTURES: Thoracic spondylosis. VISUALIZED UPPER ABDOMEN: Normal. OTHER FINDINGS: None. IMPRESSION: Persistent left perihilar to left upper lobe coalescent airspace opacities with background interstitial lung disease changes-bronchiectasis changes are in part suggested. Fibrosis here also suggested. Slight interval progression since prior study. Continued follow-up recommended. Other findings as above.
--- NOTE | 2018-01-02 12:47 | CP.PCM.PN ---
Subjective - Date & Time of Evaluation Date of Evaluation: 01/02/18 Time of Evaluation: 09:00 - Subjective Subjective: no fever unable to produce sputum persistent infiltrates Dr Lilia galeas Objective - Vital Signs/Intake and Output Vital Signs (last 24 hours): Temp Pulse Resp BP Pulse Ox 97.5 F L 89 20 103/63 98 01/02/18 12:00 01/02/18 12:00 01/02/18 12:00 01/02/18 12:00 01/02/18 12:00 - Medications Medications: Current Medications Aspirin (Aspirin Chewable) 81 mg PO DAILY [facility] Last Admin: 01/02/18 09:06 Dose: 81 mg Glipizide (Glucotrol) 10 mg PO DAILY [facility] Last Admin: 01/02/18 09:08 Dose: 10 mg Guaifenesin/Dextromethorphan (Mucinex-Dm 600-30 Mg) 1 tab PO BID [facility] Last Admin: 01/02/18 09:09 Dose: 1 tab Piperacillin Sod/Tazobactam (Sod 3.375 gm/ Sodium Chloride) 100 mls @ 100 mls/hr IVPB Q6 [facility]; Protocol Last Admin: 01/02/18 09:13 Dose: 100 mls/hr Insulin Detemir (Levemir) 8 units SC HS [facility] Last Admin: 01/01/18 22:03 Dose: 8 units Insulin Human Lispro (Humalog) 0 units SC ACHS [facility]; Protocol Last Admin: 01/02/18 12:12 Dose: 3 units Levalbuterol HCl (Xopenex) 0.63 mg INH RQ8 PRN PRN Reason: Shortness of Breath Levothyroxine Sodium (Synthroid) 25 mcg PO DAILY@0630 [facility] Last Admin: 01/02/18 06:17 Dose: 25 mcg Ondansetron HCl (Zofran Inj) 4 mg IVP Q6 PRN PRN Reason: Nausea/Vomiting Pantoprazole Sodium (Protonix Ec Tab) 40 mg PO DAILY [facility] Last Admin: 01/02/18 09:09 Dose: 40 mg Risperidone (Risperdal Tab) 2 mg PO Q12 [facility] Last Admin: 01/02/18 09:09 Dose: 2 mg Sitagliptin Phosphate (Januvia) 100 mg PO DAILY [facility] Last Admin: 01/02/18 09:08 Dose: 100 mg Trazodone HCl (Desyrel) 50 mg PO HS PRN PRN Reason: Insomnia Last Admin: 12/26/17 21:51 Dose: 50 mg - Labs Labs: 01/01/18 04:25 01/01/18 04:25 - Constitutional Appears: Non-toxic, Cachectic, Chronically Ill - Head Exam Head Exam: NORMOCEPHALIC - Eye Exam Eye Exam: absent: Scleral icterus - ENT Exam ENT Exam: Mucous Membranes Dry - Neck Exam Neck Exam: absent: Lymphadenopathy - Respiratory Exam Respiratory Exam: Decreased Breath Sounds, Rhonchi - Cardiovascular Exam Cardiovascular Exam: REGULAR RHYTHM - GI/Abdominal Exam GI & Abdominal Exam: Distended - Rectal Exam Rectal Exam: Deferred - Exam Exam: NORMAL INSPECTION - Extremities Exam Extremities Exam: absent: Pedal Edema Assessment and Plan (1) Dehydration Status: Acute (2) Pneumonia Status: Acute (3) Bipolar disorder Status: Acute (4) Diabetes mellitus with hyperglycemia Status: Acute (5) Fever of unknown origin Status: Acute (6) Hyperglycemia Status: Acute (7) Leukocytosis Status: Acute (8) Physical deconditioning Status: Acute (9) Schizoaffective disorder Status: Acute (10) Dementia Status: Chronic (11) Schizophrenia Status: Chronic - Assessment and Plan (Free Text) Assessment: consider FOB await quantiferon
--- NOTE | 2018-01-02 13:30 | PN ---
DATE: 01/02/2018 SUBJECTIVE: The patient seen and examined. Interim events noted. Consults noted and appreciated. Infectious Disease and Pulmonary followup and intervention noted and appreciated. The patient remains in progressive care unit with telemetry monitoring in isolation room awaiting for sputum AFB results. The patient feels okay. Denies any cough, chest pain or shortness of breath. PHYSICAL EXAMINATION: GENERAL: The patient is in no acute distress. VITAL SIGNS: Stable. HEART: S1 and S2, normal and regular. LUNGS: Good bilateral air exchange. No rales or rhonchi. ABDOMEN: Soft and nontender. EXTREMITIES: No edema. No calf swelling. No tenderness. No acute ischemia. CENTRAL NERVOUS SYSTEM: Essentially unchanged. DIAGNOSTIC DATA: Available diagnostic data reviewed. Telemetry monitoring does not reveal significant arrhythmias. ASSESSMENT AND PLAN: Overall, the patient's general medical condition is stable. Plan as ordered. Agustin Alvarez MD
[2018-01-02] MEDS: Insulin Detemir 100 Units/ml Inj SC SCH (22:53)
[2018-01-03] MEDS: Piperacillin/Tazobact 3.375 GM in Sodium Chloride 0.9% 100 ML IVPB SCH ×4 (03:45→22:00)
[2018-01-03] MEDS: Levothyroxine 25 MCG TAB PO SCH (06:45)
[2018-01-03] MEDS: Insulin Lispro (humaLOG) 100 Units/ml Inj SC SCH ×4 (06:45→22:15)
[2018-01-03] MEDS: guaiFENesin-DM 600-30 mg ER Tab PO SCH ×2 (09:32→16:59)
[2018-01-03] MEDS: Pantoprazole 40 mg EC Tab PO SCH (09:32)
[2018-01-03] MEDS: Sodium Chloride 3% for Inhalation 4 ML VIAL.NEB IH PRN (11:15)
--- NOTE | 2018-01-03 11:40 | CP.PCM.PN ---
Subjective - Date & Time of Evaluation Date of Evaluation: 01/03/18 Time of Evaluation: 11:40 - Subjective Subjective: CLINICALLY IMPROVED SOB IMPROVED NO CHEST PAINS Objective - Vital Signs/Intake and Output Vital Signs (last 24 hours): Temp Pulse Resp BP Pulse Ox 98.0 F 113 H 18 117/67 95 01/03/18 08:00 01/03/18 08:00 01/03/18 08:00 01/03/18 08:00 01/03/18 08:00 - Medications Medications: Current Medications Aspirin (Aspirin Chewable) 81 mg PO DAILY [facility] Last Admin: 01/03/18 09:30 Dose: 81 mg Glipizide (Glucotrol) 10 mg PO DAILY [facility] Last Admin: 01/03/18 09:31 Dose: 10 mg Guaifenesin/Dextromethorphan (Mucinex-Dm 600-30 Mg) 1 tab PO BID [facility] Last Admin: 01/03/18 09:32 Dose: 1 tab Piperacillin Sod/Tazobactam (Sod 3.375 gm/ Sodium Chloride) 100 mls @ 100 mls/hr IVPB Q6 [facility]; Protocol Last Admin: 01/03/18 09:33 Dose: 100 mls/hr Insulin Detemir (Levemir) 8 units SC HS [facility] Last Admin: 01/02/18 22:53 Dose: 8 units Insulin Human Lispro (Humalog) 0 units SC ACHS [facility]; Protocol Last Admin: 01/03/18 06:45 Dose: 2 units Levalbuterol HCl (Xopenex) 0.63 mg INH RQ8 PRN PRN Reason: Shortness of Breath Levothyroxine Sodium (Synthroid) 25 mcg PO DAILY@0630 [facility] Last Admin: 01/03/18 06:45 Dose: 25 mcg Nystatin (Nystop Topical Powder) 1 applic TOP TID [facility] Ondansetron HCl (Zofran Inj) 4 mg IVP Q6 PRN PRN Reason: Nausea/Vomiting Pantoprazole Sodium (Protonix Ec Tab) 40 mg PO DAILY [facility] Last Admin: 01/03/18 09:32 Dose: 40 mg Risperidone (Risperdal Tab) 2 mg PO Q12 [facility] Last Admin: 01/03/18 09:32 Dose: 2 mg Sitagliptin Phosphate (Januvia) 100 mg PO DAILY [facility] Last Admin: 01/03/18 09:31 Dose: 100 mg Trazodone HCl (Desyrel) 50 mg PO HS PRN PRN Reason: Insomnia Last Admin: 12/26/17 21:51 Dose: 50 mg - Labs Labs: 01/01/18 04:25 01/01/18 04:25 - Constitutional Appears: No Acute Distress - Head Exam Head Exam: ATRAUMATIC, NORMAL INSPECTION, NORMOCEPHALIC - Eye Exam Eye Exam: EOMI, Normal appearance, PERRL Pupil Exam: NORMAL ACCOMODATION, PERRL - ENT Exam ENT Exam: Mucous Membranes Moist, Normal Exam - Neck Exam Neck Exam: Full ROM, Normal Inspection. absent: Lymphadenopathy - Respiratory Exam Respiratory Exam: Prolonged Expiratory Phase, Rales, NORMAL BREATHING PATTERN - Cardiovascular Exam Cardiovascular Exam: REGULAR RHYTHM, +S1, +S2. absent: Murmur - GI/Abdominal Exam GI & Abdominal Exam: Soft, Normal Bowel Sounds. absent: Tenderness - Rectal Exam Rectal Exam: NORMAL INSPECTION - Extremities Exam Extremities Exam: Full ROM, Normal Capillary Refill, Normal Inspection. absent: Joint Swelling, Pedal Edema - Back Exam Back Exam: NORMAL INSPECTION - Neurological Exam Neurological Exam: Alert, Awake, CN II-XII Intact, Normal Gait, Oriented x3 - Psychiatric Exam Psychiatric exam: Normal Affect, Normal Mood - Skin Skin Exam: Dry, Intact, Normal Color, Warm Assessment and Plan - Assessment and Plan (Free Text) Assessment: PNEUMONIA SUPERIMPOSED ON CHRONIC LUNG DISEASE PLEURAL EFFUSION RESOLVED Plan: AWAIT SPUTUM AFB RESULTS CONTINUE IV ANTIBIOTIC THERAPY
[2018-01-03] MEDS: Levalbuterol 0.63 MG/3 ML Inhal Soln UD INH PRN ×2 (12:49→19:23)
[2018-01-03] MEDS: Acetylcysteine 10% 4 ML IH SCH ×3 (12:49→19:24)
--- NOTE | 2018-01-03 13:53 | PN ---
DATE: 01/03/2018 SUBJECTIVE: The patient seen and examined. Interim events noted. Consults noted and appreciated. Infectious Disease followup and interventions noted and appreciated. The patient remains in progressive care unit on telemetry monitoring in isolation room, not able to provide sputum specimen for testing, but feels okay. Denies any chest pain. No shortness of breath. No coughing. PHYSICAL EXAMINATION: GENERAL: The patient is in no acute distress. VITAL SIGNS: Stable. HEART: S1 and S2. Normal and regular. LUNGS: Good bilateral air exchange. ABDOMEN: Soft and nontender. EXTREMITIES: No edema. No calf swelling. No tenderness. No acute ischemia. CENTRAL NERVOUS SYSTEM: Essentially unchanged. DIAGNOSTIC DATA: Available diagnostic data reviewed. ASSESSMENT AND PLAN: Overall, the patient's general medical condition is stable. Plan as ordered. Telemetry monitoring does not reveal significant arrhythmia. Agustin Alvarez MD
--- NOTE | 2018-01-03 17:53 | CP.PCM.PN ---
Subjective - Date & Time of Evaluation Date of Evaluation: 01/03/18 Time of Evaluation: 17:52 - Subjective Subjective: being treated for persistent infiltrate / ? FOB HR stable Objective - Vital Signs/Intake and Output Vital Signs (last 24 hours): Temp Pulse Resp BP Pulse Ox 98 F 86 16 111/60 97 01/03/18 16:10 01/03/18 16:10 01/03/18 16:10 01/03/18 16:10 01/03/18 16:10 - Medications Medications: Current Medications Acetylcysteine (Mucomyst 10% 4ml) 3 ml IH RTID [facility] Last Admin: 01/03/18 12:49 Dose: 3 ml Aspirin (Aspirin Chewable) 81 mg PO DAILY [facility] Last Admin: 01/03/18 09:30 Dose: 81 mg Glipizide (Glucotrol) 10 mg PO DAILY [facility] Last Admin: 01/03/18 09:31 Dose: 10 mg Guaifenesin/Dextromethorphan (Mucinex-Dm 600-30 Mg) 1 tab PO BID [facility] Last Admin: 01/03/18 16:59 Dose: 1 tab Piperacillin Sod/Tazobactam (Sod 3.375 gm/ Sodium Chloride) 100 mls @ 100 mls/hr IVPB Q6 [facility]; Protocol Last Admin: 01/03/18 16:56 Dose: 100 mls/hr Insulin Detemir (Levemir) 8 units SC HS [facility] Last Admin: 01/02/18 22:53 Dose: 8 units Insulin Human Lispro (Humalog) 0 units SC ACHS [facility]; Protocol Last Admin: 01/03/18 16:58 Dose: 2 units Levalbuterol HCl (Xopenex) 0.63 mg INH RQ8 PRN PRN Reason: Shortness of Breath Last Admin: 01/03/18 12:49 Dose: 0.63 mg Levothyroxine Sodium (Synthroid) 25 mcg PO DAILY@0630 [facility] Last Admin: 01/03/18 06:45 Dose: 25 mcg Nystatin (Nystop Topical Powder) 1 applic TOP TID [facility] Last Admin: 01/03/18 17:00 Dose: 1 applic Ondansetron HCl (Zofran Inj) 4 mg IVP Q6 PRN PRN Reason: Nausea/Vomiting Pantoprazole Sodium (Protonix Ec Tab) 40 mg PO DAILY [facility] Last Admin: 01/03/18 09:32 Dose: 40 mg Risperidone (Risperdal Tab) 2 mg PO Q12 [facility] Last Admin: 01/03/18 09:32 Dose: 2 mg Sitagliptin Phosphate (Januvia) 100 mg PO DAILY [facility] Last Admin: 01/03/18 09:31 Dose: 100 mg Trazodone HCl (Desyrel) 50 mg PO HS PRN PRN Reason: Insomnia Last Admin: 12/26/17 21:51 Dose: 50 mg - Labs Labs: 01/01/18 04:25 01/01/18 04:25 - Constitutional Appears: Well - Head Exam Head Exam: ATRAUMATIC, NORMAL INSPECTION, NORMOCEPHALIC - Eye Exam Eye Exam: EOMI, Normal appearance, PERRL Pupil Exam: NORMAL ACCOMODATION, PERRL - ENT Exam ENT Exam: Mucous Membranes Moist, Normal Exam - Neck Exam Neck Exam: Full ROM, Normal Inspection. absent: Lymphadenopathy - Respiratory Exam Respiratory Exam: Clear to Ausculation Bilateral, NORMAL BREATHING PATTERN - Cardiovascular Exam Cardiovascular Exam: REGULAR RHYTHM, +S1, +S2, Murmur - GI/Abdominal Exam GI & Abdominal Exam: Soft, Normal Bowel Sounds. absent: Tenderness - Extremities Exam Extremities Exam: Full ROM, Normal Capillary Refill, Normal Inspection. absent: Joint Swelling, Pedal Edema - Back Exam Back Exam: NORMAL INSPECTION - Neurological Exam Neurological Exam: Alert, Awake, CN II-XII Intact, Normal Gait, Oriented x3 - Psychiatric Exam Psychiatric exam: Normal Affect, Normal Mood - Skin Skin Exam: Dry, Intact, Normal Color, Warm Assessment and Plan (1) Tachycardia Status: Acute (2) Dehydration Status: Acute (3) Pneumonia Status: Acute (4) Fever of unknown origin Status: Acute (5) Leukocytosis Status: Acute (6) Syncope Status: Resolved (7) CAD (coronary artery disease) Status: Acute
--- NOTE | 2018-01-03 18:32 | CP.PCM.PN ---
Subjective - Date & Time of Evaluation Date of Evaluation: 01/03/18 Time of Evaluation: 08:00 - Subjective Subjective: clinically betted CXR lagging ? Looks worse await TB quantiferon Objective - Vital Signs/Intake and Output Vital Signs (last 24 hours): Temp Pulse Resp BP Pulse Ox 98 F 86 16 111/60 97 01/03/18 16:10 01/03/18 16:10 01/03/18 16:10 01/03/18 16:10 01/03/18 16:10 - Medications Medications: Current Medications Acetylcysteine (Mucomyst 10% 4ml) 3 ml IH RTID [facility] Last Admin: 01/03/18 12:49 Dose: 3 ml Aspirin (Aspirin Chewable) 81 mg PO DAILY [facility] Last Admin: 01/03/18 09:30 Dose: 81 mg Glipizide (Glucotrol) 10 mg PO DAILY [facility] Last Admin: 01/03/18 09:31 Dose: 10 mg Guaifenesin/Dextromethorphan (Mucinex-Dm 600-30 Mg) 1 tab PO BID [facility] Last Admin: 01/03/18 16:59 Dose: 1 tab Piperacillin Sod/Tazobactam (Sod 3.375 gm/ Sodium Chloride) 100 mls @ 100 mls/hr IVPB Q6 [facility]; Protocol Last Admin: 01/03/18 16:56 Dose: 100 mls/hr Insulin Detemir (Levemir) 8 units SC HS [facility] Last Admin: 01/02/18 22:53 Dose: 8 units Insulin Human Lispro (Humalog) 0 units SC ACHS [facility]; Protocol Last Admin: 01/03/18 16:58 Dose: 2 units Levalbuterol HCl (Xopenex) 0.63 mg INH RQ8 PRN PRN Reason: Shortness of Breath Last Admin: 01/03/18 12:49 Dose: 0.63 mg Levothyroxine Sodium (Synthroid) 25 mcg PO DAILY@0630 [facility] Last Admin: 01/03/18 06:45 Dose: 25 mcg Nystatin (Nystop Topical Powder) 1 applic TOP TID [facility] Last Admin: 01/03/18 17:00 Dose: 1 applic Ondansetron HCl (Zofran Inj) 4 mg IVP Q6 PRN PRN Reason: Nausea/Vomiting Pantoprazole Sodium (Protonix Ec Tab) 40 mg PO DAILY [facility] Last Admin: 01/03/18 09:32 Dose: 40 mg Risperidone (Risperdal Tab) 2 mg PO Q12 [facility] Last Admin: 01/03/18 09:32 Dose: 2 mg Sitagliptin Phosphate (Januvia) 100 mg PO DAILY [facility] Last Admin: 01/03/18 09:31 Dose: 100 mg Trazodone HCl (Desyrel) 50 mg PO HS PRN PRN Reason: Insomnia Last Admin: 12/26/17 21:51 Dose: 50 mg - Labs Labs: 01/01/18 04:25 01/01/18 04:25 Assessment and Plan (1) Dehydration Status: Acute (2) Pneumonia Status: Acute (3) Bipolar disorder Status: Acute (4) Diabetes mellitus with hyperglycemia Status: Acute (5) Fever of unknown origin Status: Acute (6) Hyperglycemia Status: Acute (7) Leukocytosis Status: Acute (8) Physical deconditioning Status: Acute (9) Schizoaffective disorder Status: Acute (10) Dementia Status: Chronic (11) Schizophrenia Status: Chronic
[2018-01-03] MEDS: Insulin Detemir 100 Units/ml Inj SC SCH (22:15)
[2018-01-04] MEDS: Piperacillin/Tazobact 3.375 GM in Sodium Chloride 0.9% 100 ML IVPB SCH ×4 (04:43→21:40)
[2018-01-04 05:34] LABS: HEMOGLOBIN 11.4 g/dL (12.0-18.0); MEAN CELL VOLUME 90.3 fl (80.0-94.0); MEAN CORPUSCULAR HEMOGLOBIN 29.5 pg (27.0-31.0); MEAN CORPUSCULAR HGB CONC 32.6 g/dL (33.0-37.0); RBC 3.87 Mil/uL (4.40-5.90); RED CELL DISTRIBUTION WIDTH 14.6 % (11.5-14.5)
[2018-01-04 06:02] LABS: ALB/GLOB RATIO 0.7 (1.0-2.1); ALBUMIN 2.9 g/dL (3.5-5.0); ALT/SGPT 27 U/L (21-72); AST/SGOT 14 U/L (17-59); BLOOD UREA NITROGEN 18 mg/dl (9-20); CALCIUM 8.5 mg/dL (8.4-10.2); GFR NON-AFRICAN AMERICAN > 60
[2018-01-04] MEDS: Levothyroxine 25 MCG TAB PO SCH (06:13)
[2018-01-04] MEDS: Insulin Lispro (humaLOG) 100 Units/ml Inj SC SCH ×4 (06:38→21:44)
[2018-01-04] MEDS: Acetylcysteine 10% 4 ML IH SCH ×3 (07:48→19:42)
[2018-01-04] MEDS: Levalbuterol 0.63 MG/3 ML Inhal Soln UD INH PRN ×2 (07:48→13:20)
--- NOTE | 2018-01-04 08:07 | CP.PCM.PCO ---
Assessment & Plan - Assessment and Plan (Free Text) Assessment: pt. s/p Mucomyst inh tx, chest PT perfomed, pt. with moderate thick white sputum AFB Sample # 1 obtained, d/w RN to get AFB #2 and #3 q 8 hours today after mucomyst inh
[2018-01-04] MEDS: guaiFENesin-DM 600-30 mg ER Tab PO SCH ×2 (09:46→17:19)
[2018-01-04] MEDS: Pantoprazole 40 mg EC Tab PO SCH (09:46)
--- NOTE | 2018-01-04 12:49 | PN ---
DATE: 01/04/2018 SUBJECTIVE: The patient seen and examined. Interim events noted. Consults noted and appreciated. Infectious Disease intervention noted and appreciated. The patient remains in progressive care unit. The patient feels okay. Denies any cough, chest pain, shortness of breath. PHYSICAL EXAMINATION: GENERAL: The patient is in no acute distress. VITAL SIGNS: Stable. HEART: S1 and S2, normal and regular. LUNGS: Good bilateral air exchange. ABDOMEN: Soft and nontender. EXTREMITIES: No edema. No calf swelling. No tenderness. No acute ischemia. CENTRAL NERVOUS SYSTEM: Essentially unchanged. DIAGNOSTIC DATA: Available diagnostic data reviewed. Telemetry monitoring does not reveal significant arrhythmia. ASSESSMENT AND PLAN: Overall, the patient's general medical condition is stable. Plan as ordered. Agustin Alvarez MD
--- NOTE | 2018-01-04 13:33 | CP.PCM.PN ---
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- AFB will be obtained Objective - Vital Signs/Intake and Output Vital Signs (last 24 hours): Temp Pulse Resp BP Pulse Ox 97.5 F L 98 H 20 108/58 L 94 L 01/04/18 08:48 01/04/18 08:48 01/04/18 08:48 01/04/18 08:48 01/04/18 08:48 - Medications Medications: Current Medications Acetylcysteine (Mucomyst 10% 4ml) 3 ml IH RTID [facility] Last Admin: 01/04/18 13:19 Dose: 3 ml Aspirin (Aspirin Chewable) 81 mg PO DAILY [facility] Last Admin: 01/04/18 09:46 Dose: 81 mg Glipizide (Glucotrol) 10 mg PO DAILY [facility] Last Admin: 01/04/18 09:46 Dose: 10 mg Guaifenesin/Dextromethorphan (Mucinex-Dm 600-30 Mg) 1 tab PO BID [facility] Last Admin: 01/04/18 09:46 Dose: 1 tab Piperacillin Sod/Tazobactam (Sod 3.375 gm/ Sodium Chloride) 100 mls @ 100 mls/hr IVPB Q6 [facility]; Protocol Last Admin: 01/04/18 09:46 Dose: 100 mls/hr Insulin Detemir (Levemir) 8 units SC HS [facility] Last Admin: 01/03/18 22:15 Dose: 8 units Insulin Human Lispro (Humalog) 0 units SC ACHS [facility]; Protocol Last Admin: 01/04/18 12:00 Dose: 4 units Levalbuterol HCl (Xopenex) 0.63 mg INH RQ8 PRN PRN Reason: Shortness of Breath Last Admin: 01/04/18 13:20 Dose: 0.63 mg Levothyroxine Sodium (Synthroid) 25 mcg PO DAILY@0630 [facility] Last Admin: 01/04/18 06:13 Dose: 25 mcg Nystatin (Nystop Topical Powder) 1 applic TOP TID [facility] Last Admin: 01/04/18 12:49 Dose: 1 applic Ondansetron HCl (Zofran Inj) 4 mg IVP Q6 PRN PRN Reason: Nausea/Vomiting Pantoprazole Sodium (Protonix Ec Tab) 40 mg PO DAILY [facility] Last Admin: 01/04/18 09:46 Dose: 40 mg Risperidone (Risperdal Tab) 2 mg PO Q12 [facility] Last Admin: 01/04/18 09:46 Dose: 2 mg Sitagliptin Phosphate (Januvia) 100 mg PO DAILY [facility] Last Admin: 01/04/18 09:46 Dose: 100 mg Trazodone HCl (Desyrel) 50 mg PO HS PRN PRN Reason: Insomnia Last Admin: 12/26/17 21:51 Dose: 50 mg - Labs Labs: 01/04/18 04:25 01/04/18 04:25 - Constitutional Appears: Cachectic, Chronically Ill - Head Exam Head Exam: ATRAUMATIC, NORMAL INSPECTION, NORMOCEPHALIC - Eye Exam Eye Exam: EOMI, Normal appearance, PERRL Pupil Exam: NORMAL ACCOMODATION, PERRL - ENT Exam ENT Exam: Mucous Membranes Moist, Normal Exam - Neck Exam Neck Exam: Full ROM, Normal Inspection. absent: Lymphadenopathy - Respiratory Exam Respiratory Exam: Clear to Ausculation Bilateral, NORMAL BREATHING PATTERN - Cardiovascular Exam Cardiovascular Exam: REGULAR RHYTHM, +S1, +S2. absent: Murmur - GI/Abdominal Exam GI & Abdominal Exam: Soft, Normal Bowel Sounds. absent: Tenderness - Rectal Exam Rectal Exam: NORMAL INSPECTION - Extremities Exam Extremities Exam: Full ROM, Normal Capillary Refill, Normal Inspection. absent: Joint Swelling, Pedal Edema - Back Exam Back Exam: NORMAL INSPECTION - Neurological Exam Neurological Exam: Alert, Awake, CN II-XII Intact, Normal Gait, Oriented x3 - Psychiatric Exam Psychiatric exam: Normal Affect, Normal Mood - Skin Skin Exam: Dry, Intact, Normal Color, Warm Assessment and Plan (1) Dehydration Status: Acute (2) Pneumonia Status: Acute (3) Bipolar disorder Status: Acute (4) Diabetes mellitus with hyperglycemia Status: Acute (5) Fever of unknown origin Status: Acute (6) Hyperglycemia Status: Acute (7) Leukocytosis Status: Acute (8) Physical deconditioning Status: Acute (9) Schizoaffective disorder Status: Acute (10) Dementia Status: Chronic (11) Schizophrenia Status: Chronic - Assessment and Plan (Free Text) Assessment: await AFB
[2018-01-04] MEDS: Insulin Detemir 100 Units/ml Inj SC SCH (21:43)
[2018-01-05] MEDS: Piperacillin/Tazobact 3.375 GM in Sodium Chloride 0.9% 100 ML IVPB SCH ×4 (04:37→22:13)
[2018-01-05] MEDS: Levothyroxine 25 MCG TAB PO SCH (05:43)
[2018-01-05] MEDS: Acetylcysteine 10% 4 ML IH SCH ×3 (07:45→19:23)
[2018-01-05] MEDS: Levalbuterol 0.63 MG/3 ML Inhal Soln UD INH PRN ×3 (07:45→19:20)
[2018-01-05] MEDS: guaiFENesin-DM 600-30 mg ER Tab PO SCH ×2 (08:14→16:31)
[2018-01-05] MEDS: Pantoprazole 40 mg EC Tab PO SCH (08:16)
[2018-01-05] MEDS: Insulin Lispro (humaLOG) 100 Units/ml Inj SC SCH ×4 (09:41→22:19)
--- NOTE | 2018-01-05 13:37 | PN ---
DATE: 01/05/2018 SUBJECTIVE: The patient seen and examined. Interim events noted. Consults noted and appreciated. Infectious Disease followup noted and appreciated. The patient remains in progressive care unit, on telemetry monitoring with isolation room. Feels okay. Denies any cough, chest pain or shortness of breath. PHYSICAL EXAMINATION: GENERAL: The patient is in no acute distress. VITAL SIGNS: Stable. HEART: S1 and S2, normal and regular. LUNGS: Good bilateral air exchange. ABDOMEN: Soft and nontender. EXTREMITIES: No edema. No calf swelling. No tenderness. No acute ischemia. CENTRAL NERVOUS SYSTEM: Essentially unchanged. DIAGNOSTIC DATA: Available diagnostic data reviewed. Telemetry monitoring does not reveal significant arrhythmias. ASSESSMENT AND PLAN: Overall, the patient's general medical condition is stable. Finally, the patient was able to provide sputum specimen. Agustin Alvarez MD
[2018-01-05] MEDS: Insulin Detemir 100 Units/ml Inj SC SCH (22:13)
[2018-01-06] MEDS: Piperacillin/Tazobact 3.375 GM in Sodium Chloride 0.9% 100 ML IVPB SCH ×4 (04:37→22:26)
[2018-01-06] MEDS: Insulin Lispro (humaLOG) 100 Units/ml Inj SC SCH ×4 (06:38→22:21)
[2018-01-06] MEDS: Levothyroxine 25 MCG TAB PO SCH (06:38)
[2018-01-06] MEDS: Acetylcysteine 10% 4 ML IH SCH ×4 (08:15→19:26)
[2018-01-06] MEDS: Levalbuterol 0.63 MG/3 ML Inhal Soln UD INH PRN ×3 (08:15→19:26)
[2018-01-06] MEDS: Pantoprazole 40 mg EC Tab PO SCH (08:16)
[2018-01-06] MEDS: guaiFENesin-DM 600-30 mg ER Tab PO SCH ×2 (08:16→16:05)
--- NOTE | 2018-01-06 09:30 | PN ---
DATE: 01/06/2018 SUBJECTIVE: The patient is seen and examined. Interim events noted. The patient remains in regular progressive care unit with telemetry monitoring. Awake, responsive. Denies any chest pain or shortness of breath. PHYSICAL EXAMINATION: GENERAL: The patient is in no acute distress. VITAL SIGNS: Stable. HEART: S1, S2 normal and regular. LUNGS: Good bilateral air exchange. ABDOMEN: Soft, nontender. EXTREMITIES: No edema. No calf swelling. No tenderness. No acute ischemia. CENTRAL NERVOUS SYSTEM: Essentially unchanged. DIAGNOSTIC DATA: Available diagnostic data reviewed. Telemetry monitoring does not reveal significant arrhythmias. Overall, the patient's general medical condition is stable. Plan as ordered. Agustin Alvarez MD
--- NOTE | 2018-01-06 12:33 | CP.PCM.PN ---
Subjective - Date & Time of Evaluation Date of Evaluation: 01/06/18 Time of Evaluation: 08:00 - Subjective Subjective: awake alert afeb OOB to chair IN NAD Objective - Vital Signs/Intake and Output Vital Signs (last 24 hours): Temp Pulse Resp BP Pulse Ox 97.9 F 86 18 122/71 96 01/06/18 08:00 01/06/18 09:00 01/06/18 08:00 01/06/18 08:00 01/06/18 08:00 - Medications Medications: Current Medications Acetylcysteine (Mucomyst 10% 4ml) 3 ml IH RTID [facility] Last Admin: 01/06/18 08:15 Dose: 3 ml Aspirin (Aspirin Chewable) 81 mg PO DAILY [facility] Last Admin: 01/06/18 08:15 Dose: 81 mg Glipizide (Glucotrol) 10 mg PO DAILY [facility] Last Admin: 01/06/18 08:15 Dose: 10 mg Guaifenesin/Dextromethorphan (Mucinex-Dm 600-30 Mg) 1 tab PO BID [facility] Last Admin: 01/06/18 08:16 Dose: 1 tab Piperacillin Sod/Tazobactam (Sod 3.375 gm/ Sodium Chloride) 100 mls @ 100 mls/hr IVPB Q6 [facility]; Protocol Last Admin: 01/06/18 09:02 Dose: 100 mls/hr Insulin Detemir (Levemir) 8 units SC HS [facility] Last Admin: 01/05/18 22:13 Dose: 8 units Insulin Human Lispro (Humalog) 0 units SC ACHS [facility]; Protocol Last Admin: 01/06/18 06:38 Dose: 3 units Levalbuterol HCl (Xopenex) 0.63 mg INH RQ8 PRN PRN Reason: Shortness of Breath Last Admin: 01/06/18 08:15 Dose: 0.63 mg Levothyroxine Sodium (Synthroid) 25 mcg PO DAILY@0630 [facility] Last Admin: 01/06/18 06:38 Dose: 25 mcg Nystatin (Nystop Topical Powder) 1 applic TOP TID [facility] Last Admin: 01/06/18 08:20 Dose: 1 applic Ondansetron HCl (Zofran Inj) 4 mg IVP Q6 PRN PRN Reason: Nausea/Vomiting Pantoprazole Sodium (Protonix Ec Tab) 40 mg PO DAILY [facility] Last Admin: 01/06/18 08:16 Dose: 40 mg Risperidone (Risperdal Tab) 2 mg PO Q12 [facility] Last Admin: 01/06/18 08:17 Dose: 2 mg Sitagliptin Phosphate (Januvia) 100 mg PO DAILY [facility] Last Admin: 01/06/18 08:15 Dose: 100 mg Trazodone HCl (Desyrel) 50 mg PO HS PRN PRN Reason: Insomnia Last Admin: 12/26/17 21:51 Dose: 50 mg - Labs Labs: 01/04/18 04:25 01/04/18 04:25 - Constitutional Appears: Non-toxic, Cachectic, Chronically Ill - Head Exam Head Exam: NORMOCEPHALIC - Eye Exam Eye Exam: PERRL - ENT Exam ENT Exam: Mucous Membranes Dry - Neck Exam Neck Exam: absent: Lymphadenopathy - Respiratory Exam Respiratory Exam: Decreased Breath Sounds - Cardiovascular Exam Cardiovascular Exam: REGULAR RHYTHM - GI/Abdominal Exam GI & Abdominal Exam: Distended Assessment and Plan (1) Dehydration Status: Acute (2) Pneumonia Status: Acute (3) Bipolar disorder Status: Acute (4) Diabetes mellitus with hyperglycemia Status: Acute (5) Fever of unknown origin Status: Acute (6) Hyperglycemia Status: Acute (7) Leukocytosis Status: Acute (8) Physical deconditioning Status: Acute (9) Schizoaffective disorder Status: Acute (10) Dementia Status: Chronic (11) Schizophrenia Status: Chronic - Assessment and Plan (Free Text) Assessment: elderly male with hx of mental illness and weight loss/ failure to thrive + Hx COPD await AFB smears - ? MAC pulm follow up Dr Rodrigues
[2018-01-06] MEDS: Insulin Detemir 100 Units/ml Inj SC SCH (22:26)
[2018-01-07] MEDS: Piperacillin/Tazobact 3.375 GM in Sodium Chloride 0.9% 100 ML IVPB SCH ×3 (04:36→16:47)
[2018-01-07] MEDS: Levothyroxine 25 MCG TAB PO SCH (06:13)
[2018-01-07] MEDS: Insulin Lispro (humaLOG) 100 Units/ml Inj SC SCH ×3 (06:39→16:46)
[2018-01-07] MEDS: Acetylcysteine 10% 4 ML IH SCH ×2 (07:50→14:13)
[2018-01-07] MEDS: Levalbuterol 0.63 MG/3 ML Inhal Soln UD INH PRN (07:50)
[2018-01-07] MEDS: Pantoprazole 40 mg EC Tab PO SCH (09:08)
[2018-01-07] MEDS: guaiFENesin-DM 600-30 mg ER Tab PO SCH ×2 (09:09→16:48)
--- NOTE | 2018-01-07 09:53 | CP.PCM.PCO ---
Assessment & Plan - Assessment and Plan (Free Text) Assessment: AFB samples negative x 3 Quanteferon TB neg D/c Airborne precautions repeat chest xray pa/lat above d/w
--- NOTE | 2018-01-07 09:57 | PN ---
DATE: 01/07/2018 SUBJECTIVE: The patient is seen and examined. Interim events noted. Consults noted and appreciated. The patient remains in progressive care unit on telemetry monitoring. The patient feels okay. Denies any chest pain or shortness of breath. PHYSICAL EXAMINATION: GENERAL: The patient is in no acute distress. VITAL SIGNS: Stable. HEART: S1, S2 normal and regular. LUNGS: Clear bilateral air exchange. ABDOMEN: Soft, nontender. EXTREMITIES: No edema, no calf swelling, no tenderness, no acute ischemia. CENTRAL NERVOUS SYSTEM: Essentially unchanged. DIAGNOSTIC DATA: Available diagnostic data reviewed. Telemetry monitoring does not show significant arrhythmias. ASSESSMENT AND PLAN: Overall, the patient's general medical condition is stable. test is negative. Agustin Alvarez MD
--- NOTE | 2018-01-07 10:46 | RAD ---
Date of service: 01/07/2018 HISTORY: f/u COMPARISON: Chest radiographs 01/02/2018. TECHNIQUE: Chest PA and lateral FINDINGS: LUNGS: Diminishing infiltrate left upper lobe the right chest remaining clear. PLEURA: No significant pleural effusion identified. No pneumothorax apparent. CARDIOVASCULAR: Calcific atherosclerotic changes are seen related to the thoracic aorta. Normal cardiac size. No pulmonary vascular congestion. OSSEOUS STRUCTURES: No significant abnormalities. VISUALIZED UPPER ABDOMEN: Normal. OTHER FINDINGS: None. IMPRESSION: Diminishing small infiltrate left upper lobe.
--- NOTE | 2018-01-07 11:03 | CP.PCM.PN ---
Subjective - Date & Time of Evaluation Date of Evaluation: 01/07/18 Time of Evaluation: 09:00 - Subjective Subjective: AFB neg x 3 ok to d/c isolation Objective - Vital Signs/Intake and Output Vital Signs (last 24 hours): Temp Pulse Resp BP Pulse Ox 98 F 63 20 93/55 L 98 01/07/18 08:31 01/07/18 08:31 01/07/18 08:31 01/07/18 08:31 01/07/18 08:31 - Medications Medications: Current Medications Acetylcysteine (Mucomyst 10% 4ml) 3 ml IH RTID [facility] Last Admin: 01/07/18 07:50 Dose: 3 ml Aspirin (Aspirin Chewable) 81 mg PO DAILY [facility] Last Admin: 01/07/18 09:09 Dose: 81 mg Glipizide (Glucotrol) 10 mg PO DAILY [facility] Last Admin: 01/07/18 09:09 Dose: 10 mg Guaifenesin/Dextromethorphan (Mucinex-Dm 600-30 Mg) 1 tab PO BID [facility] Last Admin: 01/07/18 09:09 Dose: 1 tab Piperacillin Sod/Tazobactam (Sod 3.375 gm/ Sodium Chloride) 100 mls @ 100 mls/hr IVPB Q6 [facility]; Protocol Last Admin: 01/07/18 09:08 Dose: 100 mls/hr Insulin Detemir (Levemir) 8 units SC HS [facility] Last Admin: 01/06/18 22:26 Dose: 8 units Insulin Human Lispro (Humalog) 0 units SC ACHS [facility]; Protocol Last Admin: 01/07/18 06:39 Dose: Not Given Levalbuterol HCl (Xopenex) 0.63 mg INH RQ8 PRN PRN Reason: Shortness of Breath Last Admin: 01/07/18 07:50 Dose: 0.63 mg Levothyroxine Sodium (Synthroid) 25 mcg PO DAILY@0630 [facility] Last Admin: 01/07/18 06:13 Dose: 25 mcg Nystatin (Nystop Topical Powder) 1 applic TOP TID [facility] Last Admin: 01/06/18 17:14 Dose: Not Given Ondansetron HCl (Zofran Inj) 4 mg IVP Q6 PRN PRN Reason: Nausea/Vomiting Pantoprazole Sodium (Protonix Ec Tab) 40 mg PO DAILY [facility] Last Admin: 01/07/18 09:08 Dose: 40 mg Risperidone (Risperdal Tab) 2 mg PO Q12 [facility] Last Admin: 01/07/18 09:08 Dose: 2 mg Sitagliptin Phosphate (Januvia) 100 mg PO DAILY [facility] Last Admin: 01/07/18 09:09 Dose: 100 mg Trazodone HCl (Desyrel) 50 mg PO HS PRN PRN Reason: Insomnia Last Admin: 12/26/17 21:51 Dose: 50 mg - Labs Labs: 01/04/18 04:25 01/04/18 04:25 - Constitutional Appears: Well - Head Exam Head Exam: ATRAUMATIC, NORMAL INSPECTION, NORMOCEPHALIC - Eye Exam Eye Exam: EOMI, Normal appearance, PERRL Pupil Exam: NORMAL ACCOMODATION, PERRL - ENT Exam ENT Exam: Mucous Membranes Moist, Normal Exam - Neck Exam Neck Exam: Full ROM, Normal Inspection. absent: Lymphadenopathy - Respiratory Exam Respiratory Exam: Clear to Ausculation Bilateral, NORMAL BREATHING PATTERN - Cardiovascular Exam Cardiovascular Exam: REGULAR RHYTHM, +S1, +S2. absent: Murmur - GI/Abdominal Exam GI & Abdominal Exam: Soft, Normal Bowel Sounds. absent: Tenderness - Rectal Exam Rectal Exam: NORMAL INSPECTION - Extremities Exam Extremities Exam: Full ROM, Normal Capillary Refill, Normal Inspection. absent: Joint Swelling, Pedal Edema - Back Exam Back Exam: NORMAL INSPECTION - Neurological Exam Neurological Exam: Alert, Awake, CN II-XII Intact, Normal Gait, Oriented x3 - Psychiatric Exam Psychiatric exam: Normal Affect, Normal Mood - Skin Skin Exam: Dry, Intact, Normal Color, Warm Assessment and Plan (1) Dehydration Status: Acute (2) Pneumonia Status: Acute (3) Bipolar disorder Status: Acute (4) Diabetes mellitus with hyperglycemia Status: Acute (5) Fever of unknown origin Status: Acute (6) Hyperglycemia Status: Acute (7) Leukocytosis Status: Acute (8) Physical deconditioning Status: Acute (9) Schizoaffective disorder Status: Acute (10) Dementia Status: Chronic (11) Schizophrenia Status: Chronic
[2018-01-07 16:40] VITALS: BP 109/64; PULSE 103; RESP 20; TEMP 97.6; O2SAT 96
== END 2018-01-07 18:30 | DRG 871 ==
LOC: H.ER 20:05 → H.ERHOLD 21:37 → H.TEL 12-21 05:00
PROVIDERS: ADMIT Internal Medicine; ATTEND Internal Medicine
DX: A41.9 Sepsis, unspecified organism (principal); J15.9 Unspecified bacterial pneumonia; J90 Pleural effusion, not elsewhere classified; J44.0 Chronic obstructive pulmonary disease with (acute) lower respiratory infection; E11.65 Type 2 diabetes mellitus with hyperglycemia; G30.9 Alzheimer's disease, unspecified; F02.80 Dementia in other diseases classified elsewhere, unspecified severity, without behavioral disturbance, psychotic disturbance, mood disturbance, and anxiety; F25.9 Schizoaffective disorder, unspecified; F31.9 Bipolar disorder, unspecified; E86.0 Dehydration; R09.02 Hypoxemia; E87.70 Fluid overload, unspecified; I25.10 Atherosclerotic heart disease of native coronary artery without angina pectoris; Z23 Encounter for immunization; Z87.891 Personal history of nicotine dependence

== ENCOUNTER 2018-01-07 18:12 | Inpatient (IN) | payer MEDICARE, OTHER ==
[2018-01-07] MEDS ORDERED: Magnesium Hydroxide Susp 30 ml UD PO PRN (18:52)
[2018-01-07] MEDS ORDERED: Bismuth Subsalicylate 262 mg/15 ml Sus (240 ml) PO PRN (18:52)
--- NOTE | 2018-01-07 19:12 | PCM.BM ---
<JozefnavneetForrestYvesvishnu T - Last Filed: 01/07/18 19:11> Treatment Plan Problems - Problems identified on initial assessmt Altered Thought Process Date Initiated: 01/07/18 Time Initiated: 19:11 Assessment reference: NA Status: Active Treatment assets and liabiliti Patient Assests: adapts well, cooperative, negotiates basic needs Patient Liabilities: live alone, poor support system, imparied memory - Milieu Protocol Maintain good personal hygiene: daily Encourage regular showers, daily Remind patient to perform daily oral care, daily Assist patient to perform ADL's Conduct patient checks and document Observation sheet: Q15 minutes Maintain personal safety: every shift Educate patient to report safety concerns to staff, every shift Monitor environment for contraband/sharps Medication safety: Monitor for expected outcome, potential side effects: every shift, Assess barriers to learning: every shift, Assess readiness for medication education: every shift <FernandoCharlotte M - Last Filed: 01/09/18 13:19> Family Contact Family involvement: No known Family/SO - Outside Agency Kathia Anguiano Esq Care involvment: Information-sharing Agency contact number: [phone] - Goals for Treatment Patient goals for treatment: Pt to be encouraged to attend activity and clinical groups 3-5x per week to decrease symptoms of paranoia, delusions and employ reality testing. Pt to be encouraged to participate in group milieu to develop coping skills to reduce psychiatric hospitalizations and further decompensation. Coordinate discharge resources needs by providing referral for psychiatric treatment follow up in the community. Discharge/Continuing Care - Education Needs Education Needs: Patient Medication, Patient Diagnosis/Disease Process, Patient Coping Skills, Patient Placement options, Patient Community resources, Patient Activities of Daily Living, Patient Nutrition, Patient Uses of Medical Equipment, Patient Health Practices/Safety, Patient Personal Hygiene/Grooming, Patient Aftercare Safety Plan - Discharge Discharge Criteria: Tolerates medication w/o severe side effects, Free of agitation, Normal sleep pattern, Ability to care for self, Reduction of target symptoms Discharge to:: Home - Additional Comments 01/09/18 13:22 Pt seen and discussed in team meeting. Reason for return to [facility] reviewed and discussed. Pt reported feeling "alright." Pt reported that he was on the medical unit due to "blood problems." Pt expressed feeling gratitude for being able to return to [facility] and continue psychiatric treatment. [employer] informed pt that guardianship was initiated and pending court hearing is for February 21, 2018. Pt verbalized understanding of same and reported that he has the paperwork in his room. Pt's medications reviewed and discussed. Pt in agreement to continue tx howard and prescribed medications. 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 - Treatment Team Participation Discussed with Family/SO: No Was Patient/Family/SO present at Treatment Team Meeting: Yes <Constance Salas - Last Filed: 01/16/18 12:14> - Diagnosis (1) Schizophrenia Status: Chronic Interventions: Medication management, Individual and group therapy, Psychoeducation 01/16/18 12:14
[2018-01-07] MEDS: Insulin Detemir 100 Units/ml Inj SC SCH (21:09)
[2018-01-07] MEDS: guaiFENesin-DM 600-30 mg ER Tab PO SCH (21:09)
[2018-01-08] MEDS: Levothyroxine 25 MCG TAB PO SCH (06:43)
[2018-01-08 06:53] LABS: HEMOGLOBIN 12.5 g/dL (12.0-18.0); MEAN CELL VOLUME 89.9 fl (80.0-94.0); MEAN CORPUSCULAR HEMOGLOBIN 30.1 pg (27.0-31.0); MEAN CORPUSCULAR HGB CONC 33.5 g/dL (33.0-37.0); RBC 4.16 Mil/uL (4.40-5.90); RED CELL DISTRIBUTION WIDTH 14.4 % (11.5-14.5); WHITE BLOOD COUNT 9.1 K/uL (4.8-10.8)
[2018-01-08 07:09] LABS: ALB/GLOB RATIO 0.8 (1.0-2.1); ALBUMIN 3.1 g/dL (3.5-5.0); ALT/SGPT 21 U/L (21-72); AST/SGOT 16 U/L (17-59); BLOOD UREA NITROGEN 19 mg/dl (9-20); CALCIUM 8.7 mg/dL (8.4-10.2); GFR NON-AFRICAN AMERICAN > 60; HDL CHOLESTEROL 39 MG/DL (30-70)
[2018-01-08 07:12] LABS: LDL CHOLESTEROL 99 mg/dL (0-129)
[2018-01-08 07:14] LABS: T4 5.55 ug/dl (5.5-11.0)
[2018-01-08 07:32] LABS: FERRITIN 30.1 ng/Ml (17.9-464)
--- NOTE | 2018-01-08 07:37 | CP.PCM.CON ---
History of Present Illness - History of Present Illness History of Present Illness: History taken from patient and review of his medical records. Case discussed with Dr Alvarez. 72 year old male with a PMHx of schizoaffective disorder, dementia and DM was admitted to the floor due to pneumonia. Patient was in [facility] unit since 11/17/17. Patient received treatment with abx, ID and Pulmonology were on board, AFB samples negative x 3, Quanteferon TB neg, patient condition improved and was transferred to GeroPsych unit to complete his psych treatment. Today he reports feeling well, no cough or expectoration reported, afebrile. Denies chest pain, dyspnea, GI or complaints. Review of Systems - Review of Systems All systems: reviewed and no additional remarkable complaints except (HPI) Past Patient History - Past Medical History & Family History Past Medical History?: Yes - Past Social History Smoking Status: Former Smoker - CARDIAC Hx Hypertension: No - PULMONARY Hx Respiratory Disorders: No Hx Pneumonia: Yes Hx Tuberculosis: No - NEUROLOGICAL Hx Alzheimer's Disease: Yes Hx Dementia: Yes Hx Seizures: No - HEENT Hx HEENT Problems: No - RENAL Hx Chronic Kidney Disease: No - ENDOCRINE/METABOLIC Hx Diabetes Mellitus Type 2: Yes - HEMATOLOGICAL/ONCOLOGICAL Hx Human Immunodeficiency Virus (HIV): No - INTEGUMENTARY Hx Dermatological Problems: No - MUSCULOSKELETAL/RHEUMATOLOGICAL Hx Musculoskeletal Disorders: Yes Hx Falls: Yes - GASTROINTESTINAL Hx Gastrointestinal Disorders: No - GENITOURINARY/GYNECOLOGICAL Hx Sexually Transmitted Disorders: No - PSYCHIATRIC Hx Schizophrenia: Yes Hx Substance Use: No - SURGICAL HISTORY Hx Surgeries: Yes Other/Comment: stated had surgery for nosebleeding - ANESTHESIA Hx Anesthesia: No Hx Anesthesia Reactions: No Hx Malignant Hyperthermia: No Meds Allergies/Adverse Reactions: Allergies Allergy/AdvReac Type Severity Reaction Status Date / Time No Known Allergies Allergy Verified 11/17/17 12:42 - Medications Medications: Current Medications Acetaminophen (Tylenol 325mg Tab) 650 mg PO Q4 PRN PRN Reason: Pain, moderate (4-7) Aspirin (Aspirin Chewable) 81 mg PO DAILY [facility] Bismuth Subsalicylate (Pepto-Bismol) 524 mg PO Q4 PRN PRN Reason: Diarrhea Glipizide (Glucotrol) 10 mg PO DAILY [facility] Guaifenesin/Dextromethorphan (Mucinex-Dm 600-30 Mg) 1 tab PO BID [facility] Last Admin: 01/07/18 21:09 Dose: 1 tab Insulin Detemir (Levemir) 8 units SC HS [facility] Last Admin: 01/07/18 21:09 Dose: 8 units Levothyroxine Sodium (Synthroid) 25 mcg PO DAILY@0630 [facility] Last Admin: 01/08/18 06:43 Dose: 25 mcg Lorazepam (Ativan) 0.5 mg PO HS PRN PRN Reason: Insomnia Stop: 01/21/18 18:53 Lorazepam (Ativan) 0.5 mg PO Q6 PRN PRN Reason: Anixety/Agitation Stop: 01/21/18 18:53 Magnesium Hydroxide (Milk Of Magnesia) 30 ml PO HS PRN PRN Reason: Constipation Moxifloxacin HCl (Avelox) 400 mg PO DAILY [facility]; Protocol Nystatin (Nystop Topical Powder) 1 applic TOP TID [facility] Pantoprazole Sodium (Protonix Ec Tab) 40 mg PO DAILY [facility] Risperidone (Risperdal Tab) 2 mg PO Q12 [facility] Last Admin: 01/07/18 21:09 Dose: 2 mg Sitagliptin Phosphate (Januvia) 100 mg PO DAILY [facility] Trazodone HCl (Desyrel) 50 mg PO HS PRN PRN Reason: Insomnia Physical Exam - Constitutional Appears: No Acute Distress - Head Exam Head Exam: NORMAL INSPECTION - Eye Exam Eye Exam: EOMI - Respiratory Exam Respiratory Exam: Clear to Auscultation Bilateral. absent: Rales, Rhonchi, Wheezes - Cardiovascular Exam Cardiovascular Exam: REGULAR RHYTHM, +S1, +S2 - GI/Abdominal Exam GI & Abdominal Exam: Normal Bowel Sounds, Soft. absent: Distended, Tenderness - Extremities Exam Extremities exam: Negative for: pedal edema - Neurological Exam Neurological exam: Alert, CN II-XII Intact - Skin Skin Exam: Dry, Warm Results - Vital Signs Recent Vital Signs: Last Vital Signs Temp 99.1 F 01/08/18 06:00 Pulse 102 H 01/08/18 06:00 Resp 18 01/08/18 06:00 BP 113/58 L 01/08/18 06:00 Pulse Ox - Labs Result Diagrams: 01/08/18 06:10 01/08/18 06:10 Labs: Laboratory Results - last 24 hr 01/07/18 01/08/18 01/08/18 19:27 05:55 06:10 WBC 9.1 RBC 4.16 L Hgb 12.5 Hct 37.5 MCV 89.9 MCH 30.1 MCHC 33.5 RDW 14.4 Plt Count 384 Sodium Potassium Chloride Carbon Dioxide Anion Gap BUN Creatinine Est GFR ( Amer) Est GFR (Non-Af Amer) POC Glucose (mg/dL) 313 H 159 H Random Glucose Calcium Ferritin Total Bilirubin AST ALT Alkaline Phosphatase Total Protein Albumin Globulin Albumin/Globulin Ratio Triglycerides Cholesterol LDL Cholesterol Direct HDL Cholesterol Free T4 Thyroxine (T4) TSH 3rd Generation 01/08/18 01/08/18 06:10 06:10 WBC RBC Hgb Hct MCV MCH MCHC RDW Plt Count Sodium 141 Potassium 4.2 Chloride 105 Carbon Dioxide 28 Anion Gap 12 BUN 19 Creatinine 0.8 Est GFR ( Amer) > 60 Est GFR (Non-Af Amer) > 60 POC Glucose (mg/dL) Random Glucose 167 H Calcium 8.7 Ferritin 30.1 Total Bilirubin 0.4 AST 16 L ALT 21 D Alkaline Phosphatase 118 Total Protein 7.2 Albumin 3.1 L Globulin 4.1 H Albumin/Globulin Ratio 0.8 L Triglycerides 66 D Cholesterol 147 LDL Cholesterol Direct 99 HDL Cholesterol 39 Free T4 0.97 Thyroxine (T4) 5.55 TSH 3rd Generation 2.89 Assessment & Plan - Assessment and Plan (Free Text) Assessment: 72 year old male with a PMHx of schizoaffective disorder, dementia and DM transferred to GeroPsych unit, previously admitted to [facility] due to pneumonia. Plan: stable, afebrile complete Avelox for 7 days Resume home medications Psych care as per Psych team Rest of the plan as ordered
[2018-01-08] MEDS: guaiFENesin-DM 600-30 mg ER Tab PO SCH ×2 (09:14→18:28)
[2018-01-08] MEDS: Pantoprazole 40 mg EC Tab PO SCH (09:30)
--- NOTE | 2018-01-08 10:10 | PCM.PSYCH ---
Initial Psychiatric Evaluation - Initial Psychiatric Evaluation Chief Complaint (in patient's own words): Inability to care for self Patient's Reaction to Hospitalization: HPI:72 yo male w/ history of schizophrenia initially BIB [place] [facility] for bizarre behavior in his apt building. He was observed talking to himself and taking off his clothes. On initial psychiatric admission he presented acutely disheveled w/ loose and disorganized speech. He had not been compliant with treatment or medications. Patient was stabilized on the psychiatric unit and treated w/ Risperdal, but he continued to have poor insight/judgment and inability to care for self due to neurocognitive impairment. Guardianship process of was initiated. Patient developed pneumonia, transferred to the medical unit for acute medical treatment and transferred back to the psychiatric unit when he became medically stable. PPHx: Multiple past psychiatric admissions for schizophrenia PMHx: CAD, DM ALL: NKDA SHx: Lived in an apt alone, denies drug/etoh/cig use Current Medications: Active Medications Generic Name Dose Route Start Last Admin Trade Name Freq PRN Reason Stop Dose Admin Acetaminophen 650 mg 01/07/18 18:52 Tylenol 325mg Tab PO Q4 PRN Pain, moderate (4-7) Aspirin 81 mg 01/08/18 09:00 01/08/18 09:13 Aspirin Chewable PO 81 mg DAILY BEL Administration Bismuth Subsalicylate 524 mg 01/07/18 18:52 Pepto-Bismol PO Q4 PRN Diarrhea Glipizide 10 mg 01/08/18 09:00 01/08/18 09:13 Glucotrol PO 10 mg DAILY BEL Administration Guaifenesin/Dextromethorphan 1 tab 01/07/18 21:00 01/08/18 09:14 Mucinex-Dm 600-30 Mg PO 1 tab BID BEL Administration Insulin Detemir 8 units 01/07/18 22:00 01/07/18 21:09 Levemir SC 8 units HS BEL Administration Levothyroxine Sodium 25 mcg 01/08/18 06:30 01/08/18 06:43 Synthroid PO 25 mcg DAILY@0630 BEL Administration Lorazepam 0.5 mg 01/07/18 18:52 Ativan PO 01/21/18 18:53 HS PRN Insomnia Lorazepam 0.5 mg 01/07/18 18:52 Ativan PO 01/21/18 18:53 Q6 PRN Anixety/Agitation Magnesium Hydroxide 30 ml 01/07/18 18:52 Milk Of Magnesia PO HS PRN Constipation Moxifloxacin HCl 400 mg 01/08/18 09:00 01/08/18 09:13 Avelox PO 400 mg DAILY BEL Administration Protocol Nystatin 1 applic 01/08/18 09:00 Nystop Topical Powder TOP TID BEL Pantoprazole Sodium 40 mg 01/08/18 09:00 Protonix Ec Tab PO DAILY BEL Risperidone 2 mg 01/07/18 21:00 01/07/18 21:09 Risperdal Tab PO 2 mg Q12 BEL Administration Sitagliptin Phosphate 100 mg 01/08/18 09:00 01/08/18 09:13 Januvia PO 100 mg DAILY BEL Administration Trazodone HCl 50 mg 01/07/18 19:44 Desyrel PO HS PRN Insomnia Past Psychiatric History - Past Psychiatric History Previous Treatment History: Inpatient Pertinent Medical Hx (Current Medical&Sleep Prob, Allergies): Allergies Allergy/AdvReac Type Severity Reaction Status Date / Time No Known Allergies Allergy Verified 11/17/17 12:42 Aspirin [Aspirin Chewable] 81 mg PO DAILY #30 chew 05/04/17 SITagliptin [Januvia] 100 mg PO DAILY #30 tab 05/04/17 Acetaminophen [Tylenol 325mg tab] 2 tab PO Q4 12/21/17 DiphenhydrAMINE [Benadryl] 50 mg PO Q6 12/21/17 GlipiZIDE [Glucotrol] 10 mg PO DAILY 12/21/17 LORazepam [Ativan] 1 tab PO HS PRN 12/21/17 Levothyroxine [Synthroid] 1 tab PO DAILY 12/21/17 Risperidone [Risperdal] 2 mg PO Q12 12/21/17 traZODone [Desyrel] 1 tab PO HS PRN 12/21/17 Insulin Detemir [Levemir] 8 units SC HS vial 01/07/18 Moxifloxacin [Avelox] 400 mg PO DAILY #7 tab 01/07/18 Nystatin [Nystop Topical Powder] 1 applic TOP TID bottle 01/07/18 Pantoprazole [Protonix EC Tab] 40 mg PO DAILY ect 01/07/18 guaiFENesin/Dextromethorphan [Mucinex-DM 600-30 mg] 1 tab PO BID tab 01/07/18 Review of Systems - Psychiatric Psychiatric: As Per HPI Mental Status Examination - Personal Presentation Personal Presentation: Looks stated age - Affect Affect: Broad - Motor Activity Motor Activity: Calm - Reliability in Providing Information Reliability in Providing Information: Poor, due to cognitve impairment - Speech Speech: Coherent - Mood Mood: Neutral - Formal Thought Process Formal Thought Process: Loosening of associations - Hallucinations/Delusions Additional comments: Denies AH/VH/paranoia - Cognitive Functions Orientation: Person, Place, Situation, Time Sensorium: Alert Judgement: Imparied, as evidence by: Poor judgement, Imparied, as evidence by: Lack of insight into illness - Risk Risk: Diminished functioning - Strength & Assets Inventory Strength & Assets Inventory: Cooperative - Limitations Limitations: Living alone, Decreased memory, recent DSM 5 DX - DSM 5 DSM 5 Diagnosis: Schizophrenia, Dementia - Recommended/Plan of Treatment Treatment Recommendations and Plan of Treatment: Schizophrenia, Dementia -Patient transferred back to psychiatry unit for continued treatment -Continue Risperdal 2 mg PO Q12 -Continue guardianship process -Medical evaluation -Individual and group therapy -Disposition planning Projected ELOS: >30 days; guardianship process initiated Discharge Plan and Discharge Criteria: Discharge when patient is stable and appointed a guardian - Smoking Cessation Smoking Cessation Initiated: No Reason for not providing: Not indicated
[2018-01-08 13:30] LABS: FOLATE 6.3 ng/mL
[2018-01-08] MEDS: Insulin Detemir 100 Units/ml Inj SC SCH (21:11)
[2018-01-09] MEDS: Levothyroxine 25 MCG TAB PO SCH (06:59)
--- NOTE | 2018-01-09 08:12 | PCM.PYCHPN ---
Psychiatric Progress Note - Psychiatric Progress Note Patient seen today, length of contact: Pt evaluated, case discussed w/ team, chart reviewed Patient Chief Complaint: Inability to care for self Problems Identified/Issues Discussed: Pt reports that his mood is stable. He denies acute AH/VH/paranoia/delusions. Guardianship process continued. Medication Change: No Medical Record Reviewed: Yes Consults ordered or reviewed: Medicine consult Mental Status Examination - Cognitive Function Orientation: Person, Place, Situation, Time Memory: Impaired Attention: Poor Concentration: Poor Association: WNL Fund of Knowledge: Poor Decription of patient's judgement and insights: Poor I/J - Mood Mood: Neutral - Affect Affect: Broad - Formal Thought Process Formal Thought Process: Loosening of associations Psychotic Thoughts and Behaviors: Denies acute AH/VH/paranoia - Suicidal Ideation Suicidal Ideation: No - Homicidal Ideation Homicidal Ideation: No Goal/Treatment Plan - Goal/Treatment Plan Need for Continued Stay: Remain at risks for inpatient hospitalization, Severe functional impairment Progress Toward Problem(s) and Goals/Treatment Plan: Schizophrenia, Dementia -Continue Risperdal 2 mg PO Q12 -Continue guardianship process -Medical evaluation -Individual and group therapy -Disposition planning
[2018-01-09] MEDS: Pantoprazole 40 mg EC Tab PO SCH (08:20)
[2018-01-09] MEDS: guaiFENesin-DM 600-30 mg ER Tab PO SCH ×2 (08:22→16:55)
[2018-01-09] MEDS: Insulin Detemir 100 Units/ml Inj SC SCH (21:19)
[2018-01-10] MEDS: Levothyroxine 25 MCG TAB PO SCH (06:31)
[2018-01-10] MEDS: guaiFENesin-DM 600-30 mg ER Tab PO SCH ×2 (08:17→16:28)
[2018-01-10] MEDS: Pantoprazole 40 mg EC Tab PO SCH (08:18)
--- NOTE | 2018-01-10 08:26 | PCM.PYCHPN ---
Psychiatric Progress Note - Psychiatric Progress Note Patient seen today, length of contact: Pt evaluated, case discussed w/ team, chart reviewed Patient Chief Complaint: Inability to care for self Problems Identified/Issues Discussed: No new events overnight. Pt reports that his mood is stable. He denies acute AH/VH/paranoia/delusions. Guardianship process continued. Medication Change: No Medical Record Reviewed: Yes Consults ordered or reviewed: Medicine consult Mental Status Examination - Cognitive Function Orientation: Person, Place, Situation, Time Memory: Impaired Attention: Poor Concentration: Poor Association: WNL Fund of Knowledge: Poor Decription of patient's judgement and insights: Poor I/J - Mood Mood: Neutral - Affect Affect: Broad - Formal Thought Process Formal Thought Process: Loosening of associations Psychotic Thoughts and Behaviors: Denies acute AH/VH/paranoia - Suicidal Ideation Suicidal Ideation: No - Homicidal Ideation Homicidal Ideation: No Goal/Treatment Plan - Goal/Treatment Plan Need for Continued Stay: Severe functional impairment Progress Toward Problem(s) and Goals/Treatment Plan: Schizophrenia, Dementia -Continue Risperdal 2 mg PO Q12 -Continue guardianship process -Medical evaluation -Individual and group therapy -Disposition planning
--- NOTE | 2018-01-10 08:57 | PN ---
DATE: 01/09/2018 SUBJECTIVE: The patient is seen and examined. Interim events noted. Psychiatric followup noted and appreciated. Case discussed with psychiatrist. The patient remains in geropsych unit. Awake, responsive. Feels okay. Denies any specific complaint of chest pain or shortness of breath. No specific medical issue reported by nursing staff. PHYSICAL EXAMINATION: GENERAL: The patient is in no acute distress. VITAL SIGNS: Stable. Physical exam is essentially unchanged. DIAGNOSTIC DATA: Available diagnostic data reviewed. ASSESSMENT AND PLAN: Overall, the patient's general medical condition is stable. AccuCheks are acceptable. Hemoglobin A1c still remains elevated at 7.5. Plan as ordered. Agustin Alvarez MD
--- NOTE | 2018-01-10 12:55 | PN ---
DATE: 01/10/2018 SUBJECTIVE: The patient seen and examined. Interim events noted. Psychiatry followup and interventions noted and appreciated. The patient remains in . PHYSICAL EXAMINATION: GENERAL: The patient is in no acute distress. VITAL SIGNS: Stable. Physical exam is essentially unchanged. DIAGNOSTIC DATA: Available diagnostic data reviewed. Accu-Cheks are acceptable. ASSESSMENT AND PLAN: Overall, the patient is medically stable. Plan as ordered. Agustin Alvarez MD
[2018-01-10] MEDS: Insulin Detemir 100 Units/ml Inj SC SCH (21:13)
[2018-01-11] MEDS: Levothyroxine 25 MCG TAB PO SCH (06:14)
--- NOTE | 2018-01-11 08:02 | PCM.PYCHPN ---
Psychiatric Progress Note - Psychiatric Progress Note Patient seen today, length of contact: Pt evaluated, case discussed w/ team, chart reviewed Patient Chief Complaint: Inability to care for self Problems Identified/Issues Discussed: No new events. Pt reports that his mood is stable. He denies acute AH/VH/paranoia/delusions. Guardianship process continued. Medication Change: No Medical Record Reviewed: Yes Consults ordered or reviewed: Medicine consult Mental Status Examination - Cognitive Function Orientation: Person, Place, Situation, Time Memory: Impaired Attention: Poor Concentration: Poor Association: WNL Fund of Knowledge: Poor Decription of patient's judgement and insights: Poor I/J - Mood Mood: Neutral - Affect Affect: Broad - Formal Thought Process Formal Thought Process: Loosening of associations Psychotic Thoughts and Behaviors: Denies acute AH/VH/paranoia - Suicidal Ideation Suicidal Ideation: No - Homicidal Ideation Homicidal Ideation: No Goal/Treatment Plan - Goal/Treatment Plan Need for Continued Stay: Severe functional impairment Progress Toward Problem(s) and Goals/Treatment Plan: Schizophrenia, Dementia -Continue Risperdal 2 mg PO Q12 -Continue guardianship process -Medical evaluation -Individual and group therapy -Disposition planning
[2018-01-11] MEDS: guaiFENesin-DM 600-30 mg ER Tab PO SCH ×2 (08:20→17:21)
[2018-01-11] MEDS: Pantoprazole 40 mg EC Tab PO SCH (08:22)
--- NOTE | 2018-01-11 12:27 | PN ---
DATE: 01/11/2018 SUBJECTIVE: The patient seen and examined. Interim events noted. Psychiatry followup and intervention noted and appreciated. The patient remains in geropsych unit. Awake, responsive, ambulatory. Feels okay. Denies any specific complaints. PHYSICAL EXAMINATION: GENERAL: The patient is in no acute distress. VITAL SIGNS: Stable. Physical exam is essentially unchanged. DIAGNOSTIC DATA: Available diagnostic data reviewed. Accu-Cheks are slightly higher. ASSESSMENT AND PLAN: The patient is medically stable. Plan as ordered. Agustin Alvarez MD
[2018-01-11] MEDS: Insulin Detemir 100 Units/ml Inj SC SCH (21:16)
[2018-01-12] MEDS: Levothyroxine 25 MCG TAB PO SCH (06:47)
[2018-01-12] MEDS: guaiFENesin-DM 600-30 mg ER Tab PO SCH ×2 (08:30→16:48)
[2018-01-12] MEDS: Pantoprazole 40 mg EC Tab PO SCH (08:31)
--- NOTE | 2018-01-12 09:49 | PCM.PYCHPN ---
Psychiatric Progress Note - Psychiatric Progress Note Patient seen today, length of contact: Pt evaluated, case discussed w/ team, chart reviewed Patient Chief Complaint: pt has been in stable mood and no mood symptoms was noted.pt has been tolerating meds .no side effects to meds Medication Change: No Medical Record Reviewed: Yes Mental Status Examination - Cognitive Function Orientation: Person, Place, Situation, Time Memory: Impaired Attention: Poor Concentration: Poor Association: WNL Fund of Knowledge: Poor - Mood Mood: Neutral - Affect Affect: Broad - Formal Thought Process Formal Thought Process: Loosening of associations - Suicidal Ideation Suicidal Ideation: No - Homicidal Ideation Homicidal Ideation: No Goal/Treatment Plan - Goal/Treatment Plan Need for Continued Stay: Severe functional impairment Progress Toward Problem(s) and Goals/Treatment Plan: pt is waiting for placement through guardian ship.
--- NOTE | 2018-01-12 18:53 | PN ---
DATE: 01/12/2018 SUBJECTIVE: The patient seen and examined. Interim events noted. Psychiatry followup and intervention noted and appreciated. The patient remains in geropsych unit. Awake, responsive. Denies any specific new complaints. No specific medical issues reported by Nursing staff. PHYSICAL EXAMINATION: GENERAL: The patient is in no acute distress. VITAL SIGNS: Stable. Physical examination is essentially unchanged. DIAGNOSTIC DATA: Available diagnostic data reviewed. Accu-Cheks are acceptable. ASSESSMENT AND PLAN: Overall, the patient's general medical condition is stable. Plan as ordered. Agustin Alvarez MD
[2018-01-12] MEDS: Insulin Detemir 100 Units/ml Inj SC SCH (21:04)
[2018-01-13] MEDS: Levothyroxine 25 MCG TAB PO SCH (06:00)
[2018-01-13] MEDS: guaiFENesin-DM 600-30 mg ER Tab PO SCH ×2 (08:48→17:32)
[2018-01-13] MEDS: Pantoprazole 40 mg EC Tab PO SCH (08:49)
--- NOTE | 2018-01-13 12:14 | PN ---
DATE: 01/13/2018 SUBJECTIVE: The patient seen and examined. Interim events noted. The patient was remains in geropsych unit. Psychiatry followup and intervention noted and appreciated. The patient is good. Denies any specific complaints. No specific issue reported by nursing staff. PHYSICAL EXAMINATION: GENERAL: The patient is in no acute distress. VITAL SIGNS: Stable. Physical exam is essentially unchanged. DIAGNOSTIC DATA: Available diagnostic data reviewed. ASSESSMENT AND PLAN: Overall, the patient's general medical condition is stable. Plan as ordered. Agustin Alvarez MD
[2018-01-13] MEDS: Insulin Detemir 100 Units/ml Inj SC SCH (21:10)
[2018-01-14] MEDS: Levothyroxine 25 MCG TAB PO SCH (06:18)
--- NOTE | 2018-01-14 07:49 | PCM.PYCHPN ---
Psychiatric Progress Note - Psychiatric Progress Note Patient seen today, length of contact: Pt evaluated, case discussed w/ team, chart reviewed Patient Chief Complaint: Inability to care for self Problems Identified/Issues Discussed: No new events over the weekend. Pt reports that his mood is stable. He denies acute AH/VH/paranoia/delusions. Guardianship process continued. Medication Change: No Medical Record Reviewed: Yes Consults ordered or reviewed: Medicine consult Mental Status Examination - Cognitive Function Orientation: Person, Place, Situation, Time Memory: Impaired Attention: Poor Concentration: Poor Association: WNL Fund of Knowledge: Poor Decription of patient's judgement and insights: Poor I/J - Mood Mood: Neutral - Affect Affect: Broad - Formal Thought Process Formal Thought Process: Loosening of associations Psychotic Thoughts and Behaviors: Denies AH/VH - Suicidal Ideation Suicidal Ideation: No - Homicidal Ideation Homicidal Ideation: No Goal/Treatment Plan - Goal/Treatment Plan Need for Continued Stay: Severe functional impairment Progress Toward Problem(s) and Goals/Treatment Plan: Schizophrenia, Dementia -Continue Risperdal 2 mg PO Q12 -Continue guardianship process -Medical evaluation -Individual and group therapy -Disposition planning Estimated Date of D/C: 03/08/18
[2018-01-14] MEDS: Pantoprazole 40 mg EC Tab PO SCH (08:28)
[2018-01-14] MEDS: guaiFENesin-DM 600-30 mg ER Tab PO SCH ×2 (08:29→16:46)
[2018-01-14] MEDS: Insulin Detemir 100 Units/ml Inj SC SCH (21:06)
[2018-01-15] MEDS: Levothyroxine 25 MCG TAB PO SCH (06:24)
--- NOTE | 2018-01-15 08:29 | PCM.PYCHPN ---
Psychiatric Progress Note - Psychiatric Progress Note Patient seen today, length of contact: Pt evaluated, case discussed w/ team, chart reviewed Patient Chief Complaint: Inability to care for self Problems Identified/Issues Discussed: No new events. Pt reports that his mood is stable. He denies acute AH/VH/paranoia/delusions. Guardianship process continued. Medication Change: No Medical Record Reviewed: Yes Consults ordered or reviewed: Medicine consult Mental Status Examination - Cognitive Function Orientation: Person, Place, Situation, Time Memory: Impaired Attention: Poor Concentration: Poor Association: WNL Fund of Knowledge: Poor Decription of patient's judgement and insights: Poor I/J - Mood Mood: Neutral - Affect Affect: Broad - Formal Thought Process Formal Thought Process: Loosening of associations Psychotic Thoughts and Behaviors: Denies AH/VH - Suicidal Ideation Suicidal Ideation: No - Homicidal Ideation Homicidal Ideation: No Goal/Treatment Plan - Goal/Treatment Plan Need for Continued Stay: Severe functional impairment Progress Toward Problem(s) and Goals/Treatment Plan: Schizophrenia, Dementia -Continue Risperdal 2 mg PO Q12 -Continue guardianship process -Medical evaluation -Individual and group therapy -Disposition planning Estimated Date of D/C: 03/08/18
[2018-01-15] MEDS: Pantoprazole 40 mg EC Tab PO SCH (09:15)
[2018-01-15] MEDS: guaiFENesin-DM 600-30 mg ER Tab PO SCH ×2 (09:15→18:34)
--- NOTE | 2018-01-15 10:00 | PN ---
DATE: 01/14/2018 SUBJECTIVE: The patient seen and examined. Interim events noted. Psychiatry followup and intervention noted and appreciated. The patient . The patient feels okay. Denies any specific complaints. No chest pain, no shortness of breath. No specific medical history reported by nursing staff. PHYSICAL EXAMINATION: GENERAL: The patient is in no acute distress. VITAL SIGNS: Stable. Physical exam is essentially unchanged. DIAGNOSTIC DATA: Available diagnostic data reviewed. ASSESSMENT AND PLAN: Overall the patient's general medical condition is stable. Accu-Cheks are acceptable. Plan as ordered. Agustin Alvarez MD
[2018-01-15] MEDS: Insulin Detemir 100 Units/ml Inj SC SCH (21:25)
[2018-01-16] MEDS: Levothyroxine 25 MCG TAB PO SCH (06:13)
--- NOTE | 2018-01-16 08:06 | PCM.PYCHPN ---
Psychiatric Progress Note - Psychiatric Progress Note Patient seen today, length of contact: Pt evaluated, case discussed w/ team, chart reviewed Patient Chief Complaint: Inability to care for self Problems Identified/Issues Discussed: No new events overnight. Pt reports that his mood is stable. He denies acute AH/VH/paranoia/delusions. Guardianship process continued. Medication Change: No Medical Record Reviewed: Yes Consults ordered or reviewed: Medicine consult Mental Status Examination - Cognitive Function Orientation: Person, Place, Situation, Time Memory: Impaired Attention: Poor Concentration: Poor Association: WNL Fund of Knowledge: Poor Decription of patient's judgement and insights: Poor I/J - Mood Mood: Neutral - Affect Affect: Broad - Formal Thought Process Formal Thought Process: Loosening of associations Psychotic Thoughts and Behaviors: Denies AH/VH - Suicidal Ideation Suicidal Ideation: No - Homicidal Ideation Homicidal Ideation: No Goal/Treatment Plan - Goal/Treatment Plan Need for Continued Stay: Severe functional impairment Progress Toward Problem(s) and Goals/Treatment Plan: Schizophrenia, Dementia -Continue Risperdal 2 mg PO Q12 -Continue guardianship process -Medical evaluation -Individual and group therapy -Disposition planning Estimated Date of D/C: 03/08/18
[2018-01-16] MEDS: Pantoprazole 40 mg EC Tab PO SCH (08:36)
[2018-01-16] MEDS: guaiFENesin-DM 600-30 mg ER Tab PO SCH ×2 (08:36→16:14)
--- NOTE | 2018-01-16 09:02 | PN ---
DATE: 01/15/2018 SUBJECTIVE: The patient is seen and examined. Interim events noted. Psychiatry followup and intervention noted and appreciated. The patient remains in geropsych unit, awake, responsive, and ambulatory. Denies any specific medical complaints. No specific issue reported by nursing staff. PHYSICAL EXAMINATION: GENERAL: The patient is in no acute distress. VITAL SIGNS: Stable. HEART: S1 and S2, normal regular. LUNGS: Good bilateral air exchange. ABDOMEN: Soft, nontender. EXTREMITIES: No edema. No calf swelling. No tenderness. No acute ischemia. The patient has . CENTRAL NERVOUS SYSTEM: Essentially unchanged, and there is no sign of any acute gross focal, motor, or sensory neurological deficits. LABORATORY DATA: Available diagnostic data reviewed . Overall, the patient's general medical condition is stable. ASSESSMENT AND PLAN: As ordered. Agustin Alvraez MD
--- NOTE | 2018-01-16 12:19 | PCM.BM ---
Treatment Plan Problems - Problems identified on initial assessmt Altered Thought Process Date Initiated: 01/07/18 Time Initiated: 19:11 Assessment reference: NA Status: Active Treatment assets and liabiliti Patient Assests: adapts well, cooperative, negotiates basic needs Patient Liabilities: live alone, poor support system, imparied memory - Milieu Protocol Maintain good personal hygiene: daily Encourage regular showers, daily Remind patient to perform daily oral care, daily Assist patient to perform ADL's Conduct patient checks and document Observation sheet: Q15 minutes Maintain personal safety: every shift Educate patient to report safety concerns to staff, every shift Monitor environment for contraband/sharps Medication safety: Monitor for expected outcome, potential side effects: every shift, Assess barriers to learning: every shift, Assess readiness for medication education: every shift Milieu Narrative: Schizophrenia, Dementia -Continue Risperdal 2 mg PO Q12 -Continue guardianship process -Medical evaluation -Individual and group therapy -Disposition planning Family Contact Family involvement: No known Family/SO - Outside Agency Kathia Anguiano Esq Care involvment: Information-sharing Agency contact number: [phone] - Goals for Treatment Patient goals for treatment: Pt to be encouraged to attend activity and clinical groups 3-5x per week to decrease symptoms of paranoia, delusions and employ reality testing. Pt to be encouraged to participate in group milieu to develop coping skills to reduce psychiatric hospitalizations and further decompensation. Coordinate discharge resources needs by providing referral for psychiatric roni tment follow up in the community. Discharge/Continuing Care - Education Needs Education Needs: Patient Medication, Patient Diagnosis/Disease Process, Patient Coping Skills, Patient Placement options, Patient Community resources, Patient Activities of Daily Living, Patient Nutrition, Patient Uses of Medical Equipment, Patient Health Practices/Safety, Patient Personal Hygiene/Grooming, Patient Aftercare Safety Plan - Discharge Discharge Criteria: Tolerates medication w/o severe side effects, Free of agitation, Normal sleep pattern, Ability to care for self, Reduction of target symptoms Discharge to:: Home - Additional Comments 01/09/18 13:22 Pt seen and discussed in team meeting. Reason for return to [facility] reviewed and discussed. Pt reported feeling "alright." Pt reported that he was on the medical unit due to "blood problems." Pt expressed feeling gratitude for being able to return to [facility] and continue psychiatric treatment. Agile Developer informed pt that guardianship was initiated and pending court hearing is for February 21, 2018. Pt verbalized understanding of same and reported that he has the paperwork in his room. Pt's medications reviewed and discussed. Pt in agreement to continue tx howard and prescribed medications. Agile Developer will continue to follow case. - Treatment Team Participation Patient/Family/SO Statement: Schizophrenia, Dementia -Continue Risperdal 2 mg PO Q12 -Continue guardianship process -Medical evaluation -Individual and group therapy -Disposition planning Discussed with Family/SO: No Was Patient/Family/SO present at Treatment Team Meeting: Yes Treatment Plan Review Patient participation: Yes Family/SO/Caregiver participation: No Additional Comments: Pt seen and discussed in team meeting. Pt's progress and bx on the unit reviewed. Pt reported feeling "good and i look good." Pt reported that the medication is "working good but make me sleepy." Pt reported improved sleep since returning to [facility]. Pt actively participates in clinical and activity groups. Pt is observed to be interacting with peers and staff members appropr iately. Pt observed walking up and down the hallway as a form of exercise. Pt is compliant with prescribed medications. Pt also reported that his marketing program coordinator will be meeting with him on Sunday, January 18. Tx plan reviewed and discussed, pt is agreeable. Pt to continue to participate daily group milieu, daily physician monitoring and evaluation, qshift RN monitoring, medication regimen, and SW to continue to follow case. SW to contact [facility] and check in with chief growth officer in regards to pt's apartment and the status of his apartment. - Problem Altered Thought Process Time Initiated: 19:11 - Discharge / Continuing Care Discharge to:: Other (Pt in pending guardianship hearing scheduled for 02/21/2018.Disposition will be determine donce guardianhsip is obtained. ) Behavioral Health Services: Outpatient therapy, Home health care, Adult day care Health Needs: Follow up care/test, Doctor appointments, Special equipment, Nutritional, Medications/Rx, Educational
[2018-01-16] MEDS: Insulin Detemir 100 Units/ml Inj SC SCH (21:23)
[2018-01-17] MEDS: Levothyroxine 25 MCG TAB PO SCH (05:29)
--- NOTE | 2018-01-17 08:09 | PCM.PYCHPN ---
Psychiatric Progress Note - Psychiatric Progress Note Patient seen today, length of contact: Pt evaluated, case discussed w/ team, chart reviewed Patient Chief Complaint: Inability to care for self Problems Identified/Issues Discussed: No new events. No acute complaints. Pt reports that his mood is stable. He denies acute AH/VH/paranoia/delusions. Guardianship process continued. Medication Change: No Medical Record Reviewed: Yes Consults ordered or reviewed: Medicine consult Mental Status Examination - Cognitive Function Orientation: Person, Place, Situation, Time Memory: Impaired Attention: Poor Concentration: Poor Association: WNL Fund of Knowledge: Poor Decription of patient's judgement and insights: Poor I/J - Mood Mood: Neutral - Affect Affect: Broad - Formal Thought Process Formal Thought Process: Loosening of associations Psychotic Thoughts and Behaviors: Denies AH/VH - Suicidal Ideation Suicidal Ideation: No - Homicidal Ideation Homicidal Ideation: No Goal/Treatment Plan - Goal/Treatment Plan Need for Continued Stay: Severe functional impairment Progress Toward Problem(s) and Goals/Treatment Plan: Schizophrenia, Dementia -Continue Risperdal 2 mg PO Q12 -Continue guardianship process -Medical evaluation -Individual and group therapy -Disposition planning Estimated Date of D/C: 03/08/18
[2018-01-17] MEDS: Pantoprazole 40 mg EC Tab PO SCH (08:34)
[2018-01-17] MEDS: guaiFENesin-DM 600-30 mg ER Tab PO SCH ×2 (08:34→16:59)
--- NOTE | 2018-01-17 08:34 | PN ---
DATE: 01/16/2018 SUBJECTIVE: The patient seen and examined. Interim events noted. Psychiatric followup and intervention noted and appreciated. The patient remains in geropsych unit. Awake, responsive. Feels okay. Denies any specific medical complaints. PHYSICAL EXAMINATION: GENERAL: The patient in no acute distress. VITAL SIGNS: Stable. Physical exam is essentially unchanged. DIAGNOSTIC DATA: Available diagnostic data reviewed . Agustin Alvarez MD
[2018-01-17] MEDS: Insulin Detemir 100 Units/ml Inj SC SCH (21:12)
[2018-01-18] MEDS: Levothyroxine 25 MCG TAB PO SCH (05:37)
--- NOTE | 2018-01-18 08:20 | PCM.PYCHPN ---
Psychiatric Progress Note - Psychiatric Progress Note Patient seen today, length of contact: Pt evaluated, case discussed w/ team, chart reviewed Patient Chief Complaint: Inability to care for self Problems Identified/Issues Discussed: No acute complaints. Pt reports that his mood is stable. He denies acute AH/VH/paranoia/delusions. Guardianship process continued. Medication Change: No Medical Record Reviewed: Yes Consults ordered or reviewed: Medicine consult Mental Status Examination - Cognitive Function Orientation: Person, Place, Situation, Time Memory: Impaired Attention: Poor Concentration: Poor Association: WNL Fund of Knowledge: Poor Decription of patient's judgement and insights: Poor I/J - Mood Mood: Neutral - Affect Affect: Broad - Formal Thought Process Formal Thought Process: Loosening of associations Psychotic Thoughts and Behaviors: Denies AH/VH - Suicidal Ideation Suicidal Ideation: No - Homicidal Ideation Homicidal Ideation: No Goal/Treatment Plan - Goal/Treatment Plan Need for Continued Stay: Severe functional impairment Progress Toward Problem(s) and Goals/Treatment Plan: Schizophrenia, Dementia -Continue Risperdal 2 mg PO Q12 -Continue guardianship process -Medical evaluation -Individual and group therapy -Disposition planning Estimated Date of D/C: 03/08/18
[2018-01-18] MEDS: Pantoprazole 40 mg EC Tab PO SCH (08:22)
[2018-01-18] MEDS: guaiFENesin-DM 600-30 mg ER Tab PO SCH ×2 (08:23→16:13)
--- NOTE | 2018-01-18 11:53 | PN ---
DATE: 01/18/2018 SUBJECTIVE: The patient seen and examined. Interim events noted. The patient remains in geropsych unit. Feels okay. Denies any specific complaint. No specific issue reported by nursing staff. Psychiatric followup and intervention noted and appreciated. PHYSICAL EXAMINATION: GENERAL: The patient is in no acute distress. VITAL SIGNS: Stable. Physical exam is essentially unchanged. DIAGNOSTIC DATA: Available diagnostic data reviewed. ASSESSMENT AND PLAN Overall, the patient's general medical condition is stable. Plan as ordered. Accu-Cheks are noted. Agustin Alvarez MD
[2018-01-18] MEDS: Insulin Detemir 100 Units/ml Inj SC SCH (21:04)
[2018-01-19] MEDS: Levothyroxine 25 MCG TAB PO SCH (06:25)
[2018-01-19] MEDS: guaiFENesin-DM 600-30 mg ER Tab PO SCH ×2 (08:07→16:32)
[2018-01-19] MEDS: Pantoprazole 40 mg EC Tab PO SCH (08:07)
--- NOTE | 2018-01-19 12:42 | PCM.PYCHPN ---
Psychiatric Progress Note - Psychiatric Progress Note Patient seen today, length of contact: Pt evaluated, case discussed w/ team, chart reviewed Patient Chief Complaint: dont know just waiting for placement to live. staff reports pt adherent with treatment requires total care and support Problems Identified/Issues Discussed: alteration in cognition alteration in self care Medical Problems: per chart Diagnostic Results: per psychiatry per medicine per social science instructor per recreational therapy DSM 5 Symptoms Update: alteration in cognition alteration in self care Medication Change: No Medical Record Reviewed: Yes Consults ordered or reviewed: pt seen by hospitalist Mental Status Examination - Cognitive Function Orientation: Person, Place, Situation, Time Memory: Impaired Attention: Poor Concentration: Poor Association: WNL Fund of Knowledge: Poor Decription of patient's judgement and insights: poor - Mood Mood: Neutral - Affect Affect: Broad - Formal Thought Process Formal Thought Process: Loosening of associations - Suicidal Ideation Suicidal Ideation: No - Homicidal Ideation Homicidal Ideation: No Goal/Treatment Plan - Goal/Treatment Plan Need for Continued Stay: Severe functional impairment Progress Toward Problem(s) and Goals/Treatment Plan: inpt adm requires total care-pending placement adjust meds per status discharge planning in progress Estimated Date of D/C: 03/08/18 - Smoking Cessation Smoking Cessation Initiated: No Reason for not providing: deferred
--- NOTE | 2018-01-19 13:15 | PN ---
DATE: 01/19/2018 SUBJECTIVE: The patient seen and examined. Interim events noted. The patient remains in geropsych unit. The patient feels okay. Denies any specific complaint. No specific issue reported by nursing staff. PHYSICAL EXAMINATION: GENERAL: The patient is in no acute distress. VITAL SIGNS: Stable. Physical exam is essentially unchanged. DIAGNOSTIC DATA: Available diagnostic data reviewed. ASSESSMENT AND PLAN: Accu-Chek plan acceptable. Overall, the patient's physical condition is stable. Plan as ordered. Agustin Alvarez MD
[2018-01-19] MEDS: Insulin Detemir 100 Units/ml Inj SC SCH (21:09)
[2018-01-20] MEDS: Levothyroxine 25 MCG TAB PO SCH (06:45)
[2018-01-20] MEDS: guaiFENesin-DM 600-30 mg ER Tab PO SCH ×2 (08:20→16:48)
[2018-01-20] MEDS: Pantoprazole 40 mg EC Tab PO SCH (08:21)
--- NOTE | 2018-01-20 09:51 | PCM.PYCHPN ---
Psychiatric Progress Note - Psychiatric Progress Note Patient seen today, length of contact: Pt evaluated, case discussed w/ team, chart reviewed Patient Chief Complaint: I am alright Problems Identified/Issues Discussed: pt seen in day room, constricted affect, partial eye contact, guarded, denied any current command hallucinations, denied S/H I DSM 5 Symptoms Update: schizophrenia Medication Change: No Medical Record Reviewed: Yes Mental Status Examination - Cognitive Function Orientation: Person, Place, Situation, Time Memory: Impaired Attention: Poor Concentration: Poor Association: WNL Fund of Knowledge: Poor - Mood Mood: Neutral - Affect Affect: Broad - Formal Thought Process Formal Thought Process: Loosening of associations - Suicidal Ideation Suicidal Ideation: No - Homicidal Ideation Homicidal Ideation: No Goal/Treatment Plan - Goal/Treatment Plan Need for Continued Stay: Severe functional impairment Progress Toward Problem(s) and Goals/Treatment Plan: continue current management Estimated Date of D/C: 03/08/18
--- NOTE | 2018-01-20 09:59 | PN ---
DATE: 01/20/2018 SUBJECTIVE: The patient is seen and examined. Interim events noted. Psychiatric followup and intervention noted and appreciated. The patient remains in geropsych unit. The patient is awake, responsive, feels okay. Denies any specific medical complaint. PHYSICAL EXAMINATION: GENERAL: The patient is in no acute distress. VITAL SIGNS: Stable. Rest of the physical exam is essentially unchanged. DIAGNOSTIC DATA: Available diagnostic data reviewed. ASSESSMENT AND PLAN: Overall, the patient's general medical condition is stable. Plan as ordered. Agustin Alvarez MD
[2018-01-20] MEDS: Insulin Detemir 100 Units/ml Inj SC SCH (21:16)
[2018-01-21] MEDS: Levothyroxine 25 MCG TAB PO SCH (06:05)
--- NOTE | 2018-01-21 08:05 | PCM.PYCHPN ---
Psychiatric Progress Note - Psychiatric Progress Note Patient seen today, length of contact: Pt evaluated, case discussed w/ team, chart reviewed Patient Chief Complaint: Inability to care for self Problems Identified/Issues Discussed: No acute complaints. No new events over the weekend. Pt reports that his mood is stable. He denies acute AH/VH/paranoia/delusions. Guardianship process continued. Medication Change: No Medical Record Reviewed: Yes Consults ordered or reviewed: Medicine consult Mental Status Examination - Cognitive Function Orientation: Person, Place, Situation, Time Memory: Impaired Attention: Poor Concentration: Poor Association: WNL Fund of Knowledge: Poor Decription of patient's judgement and insights: Chronic poor I/J - Mood Mood: Neutral - Affect Affect: Broad - Formal Thought Process Formal Thought Process: Loosening of associations Psychotic Thoughts and Behaviors: No AH/VH/paranoia/delusions - Suicidal Ideation Suicidal Ideation: No - Homicidal Ideation Homicidal Ideation: No Goal/Treatment Plan - Goal/Treatment Plan Need for Continued Stay: Severe functional impairment Progress Toward Problem(s) and Goals/Treatment Plan: Schizophrenia, Dementia -Continue Risperdal 2 mg PO Q12 -Continue guardianship process -Medical evaluation -Individual and group therapy -Disposition planning Estimated Date of D/C: 03/08/18
[2018-01-21] MEDS: guaiFENesin-DM 600-30 mg ER Tab PO SCH ×2 (08:24→16:57)
[2018-01-21] MEDS: Pantoprazole 40 mg EC Tab PO SCH (08:24)
--- NOTE | 2018-01-21 10:23 | PN ---
DATE: 01/21/2018 SUBJECTIVE: The patient is seen and examined. Interim events noted. Consults noted and appreciated. The patient remains in intensive care unit, on a ventilator. comatose, not able to provide informative history or review of systems. PHYSICAL EXAMINATION: GENERAL: The patient is in intensive care unit, totally intubated, on mechanical ventilation via endotracheal tube, tolerating current without any acute respiratory distress, not responsive to any stimulus. VITAL SIGNS: Stable. Blood pressure is 160/90. HEART: S1 and S2, normal, regular. LUNGS: Good bilateral air exchange. ABDOMEN: Soft, nontender. EXTREMITIES: No calf swelling. No tenderness. No acute ischemia. CENTRAL NERVOUS SYSTEM: Essentially unchanged and the patient remains comatose. DIAGNOSTIC DATA: Available diagnostic data reviewed. Telemetry monitoring does not show significant arrhythmia. ASSESSMENT AND PLAN: Overall, the patient's general medical condition is physically sick. Prognosis remains poor. Plan as ordered. Agustin Alvarez MD
--- NOTE | 2018-01-21 12:20 | PN ---
DATE: 01/21/2018 SUBJECTIVE: The patient seen and examined. Interim events noted. Psychiatric followup and intervention noted and appreciated. The patient remains in Geropsych Unit, awake, responsive. Denies any specific complaint. No specific issue reported by nursing staff. PHYSICAL EXAMINATION: GENERAL: The patient is in no acute distress. VITAL SIGNS: Stable. HEART EXAM: S1, S2 normal and regular. LUNGS: Good bilateral air exchange. ABDOMEN: Soft and nontender. EXTREMITIES: No edema, no calf swelling, no tenderness. No acute ischemia. CENTRAL NERVOUS SYSTEM: Essentially unchanged. DIAGNOSTIC DATA: Available diagnostic data reviewed. Accu-Chek is 76. ASSESSMENT AND PLAN: Overall the patient is clinically medically stable. Awaiting for guardianship and [facility] placement. Plan as ordered. Agustin Alvarez MD
[2018-01-21] MEDS: Insulin Detemir 100 Units/ml Inj SC SCH (21:13)
[2018-01-22] MEDS: Levothyroxine 25 MCG TAB PO SCH (06:07)
--- NOTE | 2018-01-22 08:13 | PCM.PYCHPN ---
Psychiatric Progress Note - Psychiatric Progress Note Patient seen today, length of contact: Pt evaluated, case discussed w/ team, chart reviewed Patient Chief Complaint: Inability to care for self Problems Identified/Issues Discussed: No acute complaints. No new events over night. Pt reports that his mood is stable. He denies acute AH/VH/paranoia/delusions. Guardianship process continued. Medication Change: No Medical Record Reviewed: Yes Consults ordered or reviewed: Medicine consult Mental Status Examination - Cognitive Function Orientation: Person, Place, Situation, Time Memory: Impaired Attention: Poor Concentration: Poor Association: WNL Fund of Knowledge: Poor Decription of patient's judgement and insights: Chronic poor I/J - Mood Mood: Neutral - Affect Affect: Broad - Formal Thought Process Formal Thought Process: Loosening of associations Psychotic Thoughts and Behaviors: No AH/VH/paranoia/delusions - Suicidal Ideation Suicidal Ideation: No - Homicidal Ideation Homicidal Ideation: No Goal/Treatment Plan - Goal/Treatment Plan Need for Continued Stay: Severe functional impairment Progress Toward Problem(s) and Goals/Treatment Plan: Schizophrenia, Dementia -Continue Risperdal 2 mg PO Q12 -Continue guardianship process -Medical evaluation -Individual and group therapy -Disposition planning Estimated Date of D/C: 03/08/18
[2018-01-22] MEDS: Pantoprazole 40 mg EC Tab PO SCH (08:30)
[2018-01-22] MEDS: guaiFENesin-DM 600-30 mg ER Tab PO SCH ×2 (08:30→16:24)
[2018-01-22] MEDS: Insulin Detemir 100 Units/ml Inj SC SCH (21:13)
[2018-01-23] MEDS: Levothyroxine 25 MCG TAB PO SCH (06:21)
--- NOTE | 2018-01-23 08:04 | PCM.PYCHPN ---
Psychiatric Progress Note - Psychiatric Progress Note Patient seen today, length of contact: Pt evaluated, case discussed w/ team, chart reviewed Patient Chief Complaint: Inability to care for self Problems Identified/Issues Discussed: No new events. Pt reports that his mood is stable. He denies acute AH/VH/paranoia/delusions. Guardianship process continued. Medication Change: No Medical Record Reviewed: Yes Consults ordered or reviewed: Medicine consult Mental Status Examination - Cognitive Function Orientation: Person, Place, Situation, Time Memory: Impaired Attention: Poor Concentration: Poor Association: WNL Fund of Knowledge: Poor Decription of patient's judgement and insights: Chronic poor I/J - Mood Mood: Neutral - Affect Affect: Broad - Formal Thought Process Formal Thought Process: Loosening of associations Psychotic Thoughts and Behaviors: No AH/VH/paranoia/delusions - Suicidal Ideation Suicidal Ideation: No - Homicidal Ideation Homicidal Ideation: No Goal/Treatment Plan - Goal/Treatment Plan Need for Continued Stay: Severe functional impairment Progress Toward Problem(s) and Goals/Treatment Plan: Schizophrenia, Dementia -Continue Risperdal 2 mg PO Q12 -Continue guardianship process -Medical evaluation -Individual and group therapy -Disposition planning Estimated Date of D/C: 03/08/18
[2018-01-23] MEDS: Pantoprazole 40 mg EC Tab PO SCH (08:37)
[2018-01-23] MEDS: guaiFENesin-DM 600-30 mg ER Tab PO SCH ×2 (08:37→16:47)
--- NOTE | 2018-01-23 08:46 | PN ---
DATE: 01/23/2018 SUBJECTIVE: The patient is seen and examined. Interim events noted. Psychiatric followup and intervention noted and appreciated. The patient remains in geropsych unit. Awake, responsive. Feels okay. Denies any specific complaints. PHYSICAL EXAMINATION: GENERAL: The patient is in no acute distress. VITAL SIGNS: Stable. Physical exam is essentially unchanged. DIAGNOSTIC DATA: Available diagnostic data reviewed. ASSESSEMENT AND PLAN: Overall, the patient is medically stable. Plan as ordered. Agustin Alvarez MD
--- NOTE | 2018-01-23 10:26 | PN ---
PROCEDURE DATE: 01/22/2018 SUBJECTIVE: The patient is seen and examined. Interim events noted. Psychiatric followup and intervention noted and appreciated. Case discussed with Psychiatry. The patient feels okay. Denies any specific complaints. No specific issue reported by nursing staff. PHYSICAL EXAMINATION: GENERAL: The patient is in no acute distress. VITAL SIGNS: Stable. Physical exam is essentially unchanged. DIAGNOSTIC DATA: Available diagnostic data reviewed. ASSESSMENT AND PLAN: Overall, the patient is medically stable. Plan as ordered. gAustin Alvarez MD
--- NOTE | 2018-01-23 11:59 | PCM.BM ---
Treatment Plan Problems - Problems identified on initial assessmt Altered Thought Process Date Initiated: 01/07/18 Time Initiated: 19:11 Assessment reference: NA Status: Active Treatment assets and liabiliti Patient Assests: adapts well, cooperative, negotiates basic needs Patient Liabilities: live alone, poor support system, imparied memory - Milieu Protocol Maintain good personal hygiene: daily Encourage regular showers, daily Remind patient to perform daily oral care, daily Assist patient to perform ADL's Conduct patient checks and document Observation sheet: Q15 minutes Maintain personal safety: every shift Educate patient to report safety concerns to staff, every shift Monitor environment for contraband/sharps Medication safety: Monitor for expected outcome, potential side effects: every shift, Assess barriers to learning: every shift, Assess readiness for medication education: every shift Milieu Narrative: Schizophrenia, Dementia -Continue Risperdal 2 mg PO Q12 -Continue guardianship process -Medical evaluation -Individual and group therapy -Disposition planning Family Contact Family involvement: No known Family/SO - Outside Agency Kathia Anguiano Esq Care involvment: Information-sharing Agency contact number: [phone] - Goals for Treatment Patient goals for treatment: Pt to be encouraged to attend activity and clinical groups 3-5x per week to decrease symptoms of paranoia, delusions and employ reality testing. Pt to be encouraged to participate in group milieu to develop coping skills to reduce psychiatric hospitalizations and further decompensation. Coordinate discharge resources needs by providing referral for psychiatric roni tment follow up in the community. Discharge/Continuing Care - Education Needs Education Needs: Patient Medication, Patient Diagnosis/Disease Process, Patient Coping Skills, Patient Placement options, Patient Community resources, Patient Activities of Daily Living, Patient Nutrition, Patient Uses of Medical Equipment, Patient Health Practices/Safety, Patient Personal Hygiene/Grooming, Patient Aftercare Safety Plan - Discharge Discharge Criteria: Tolerates medication w/o severe side effects, Free of agitation, Normal sleep pattern, Ability to care for self, Reduction of target symptoms Discharge to:: Other (Pt in pending guardianship hearing scheduled for 02/22/20 18.Disposition will be determine donce guardianhsip is obtained. ) - Additional Comments 01/09/18 13:22 Pt seen and discussed in team meeting. Reason for return to [facility] reviewed and discussed. Pt reported feeling "alright." Pt reported that he was on the medical unit due to "blood problems." Pt expressed feeling gratitude for being able to return to [facility] and continue psychiatric treatment. Outside [facility] informed pt that guardianship was initiated and pending court hearing is for February 21, 2018. Pt verbalized understanding of same and reported that he has the paperwork in h is room. Pt's medications reviewed and discussed. Pt in agreement to continue tx howard and prescribed medications. Outside [facility] will continue to follow case. - Treatment Team Participation Patient/Family/SO Statement: Schizophrenia, Dementia -Continue Risperdal 2 mg PO Q12 -Continue guardianship process -Medical evaluation -Individual and group therapy -Disposition planning Discussed with Family/SO: No Was Patient/Family/SO present at Treatment Team Meeting: Yes Treatment Plan Review Patient participation: Yes Family/SO/Caregiver participation: No Additional Comments: Pt seen and discussed in team meeting. Pt's progress and bx on the unit reviewed. Pt reported feeling "alright." Pt reported no complications with his prescribed medications. Pt reported good sleep and appetite. Pt actively participates in clinical and activity groups. Pt is observed to be interacting with peers and staff members appropriately. Pt observed walking up and down the hallway as a form of exercise. 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 Pt aware of pending court date for February. Tx plan reviewed and discussed, pt is agreeable. Pt to continue to participate daily group milieu, daily physician monitoring and evaluation, qshift RN monitoring, medication regimen, and SW to continue to follow case. - Problem Altered Thought Process Date Initiated: 01/07/18 Time Initiated: 19:11 Progress toward outcomes: unchanged (Pt continues to display poor insight and judgment into his mental illness. Pt is intermittently forgetful and confused.) - Discharge / Continuing Care Discharge to:: Home, Other (Pt is pending guardianship. Court hearing scheduled for 02/21/2018. ) Behavioral Health Services: Outpatient therapy, Home health care, Adult day care Health Needs: Follow up care/test, Doctor appointments, Special equipment, Nutritional, Medications/Rx, Educational, Recreational/Social
[2018-01-23] MEDS: Insulin Detemir 100 Units/ml Inj SC SCH (21:19)
[2018-01-24] MEDS: Levothyroxine 25 MCG TAB PO SCH (05:32)
--- NOTE | 2018-01-24 08:30 | PCM.PYCHPN ---
Psychiatric Progress Note - Psychiatric Progress Note Patient seen today, length of contact: Pt evaluated, case discussed w/ team, chart reviewed Patient Chief Complaint: Inability to care for self Problems Identified/Issues Discussed: No new events overnight. Pt reports that his mood is stable. He denies acute AH/VH/paranoia/delusions. Guardianship process continued. Medication Change: No Medical Record Reviewed: Yes Consults ordered or reviewed: Medicine consult Mental Status Examination - Cognitive Function Orientation: Person, Place, Situation, Time Memory: Impaired Attention: Poor Concentration: Poor Association: WNL Fund of Knowledge: Poor Decription of patient's judgement and insights: Chronic poor I/J - Mood Mood: Neutral - Affect Affect: Broad - Formal Thought Process Formal Thought Process: Loosening of associations Psychotic Thoughts and Behaviors: No AH/VH/paranoia/delusions - Suicidal Ideation Suicidal Ideation: No - Homicidal Ideation Homicidal Ideation: No Goal/Treatment Plan - Goal/Treatment Plan Need for Continued Stay: Severe functional impairment Progress Toward Problem(s) and Goals/Treatment Plan: Schizophrenia, Dementia -Continue Risperdal 2 mg PO Q12 -Continue guardianship process -Medical evaluation -Individual and group therapy -Disposition planning Estimated Date of D/C: 03/08/18
--- NOTE | 2018-01-24 09:01 | PN ---
DATE: 01/24/2018 SUBJECTIVE: The patient seen and examined. Interim events noted. Psychiatric followup and intervention noted and appreciated. The patient remains in geropsych unit. Awake, responsive, ambulatory. Feels okay. Denies any specific medical issues. No specific medical issue reported by nursing staff either. PHYSICAL EXAMINATION: GENERAL: The patient is in no acute distress. VITAL SIGNS: Stable. Physical exam is essentially unchanged. DIAGNOSTIC DATA: Available diagnostic data reviewed. Accu-Cheks are acceptable. ASSESSMENT AND PLAN: Overall, the patient's general medical condition is stable. Plan as ordered. Agustin Alvarez MD
[2018-01-24] MEDS: guaiFENesin-DM 600-30 mg ER Tab PO SCH ×2 (09:16→16:29)
[2018-01-24] MEDS: Pantoprazole 40 mg EC Tab PO SCH (09:16)
[2018-01-24] MEDS: Insulin Detemir 100 Units/ml Inj SC SCH (21:16)
[2018-01-25] MEDS: Levothyroxine 25 MCG TAB PO SCH (06:12)
--- NOTE | 2018-01-25 09:03 | PN ---
DATE: 01/25/2018 SUBJECTIVE: The patient seen and examined. Interim events noted. Psychiatry followup and intervention noted and appreciated. The patient remains in [facility]. Awake, responsive, ambulatory. Feels okay. Denies any specific complaint. No specific issue reported by nursing staff. PHYSICAL EXAMINATION GENERAL: The patient is in no acute distress. VITAL SIGNS: Stable. Physical exam is essentially unchanged. DIAGNOSTIC DATA: Available diagnostic data reviewed. ASSESSMENT AND PLAN: Overall, the patient's general medical condition is stable. Plan as ordered. Agustin Alvarez MD
[2018-01-25] MEDS: guaiFENesin-DM 600-30 mg ER Tab PO SCH ×2 (09:14→17:26)
[2018-01-25] MEDS: Pantoprazole 40 mg EC Tab PO SCH (09:15)
[2018-01-25] MEDS: Insulin Detemir 100 Units/ml Inj SC SCH (21:32)
[2018-01-26] MEDS: Levothyroxine 25 MCG TAB PO SCH (05:37)
[2018-01-26] MEDS: guaiFENesin-DM 600-30 mg ER Tab PO SCH ×2 (08:16→16:08)
[2018-01-26] MEDS: Pantoprazole 40 mg EC Tab PO SCH (08:17)
--- NOTE | 2018-01-26 09:30 | PCM.PYCHPN ---
Psychiatric Progress Note - Psychiatric Progress Note Patient seen today, length of contact: Pt evaluated, case discussed w/ team, chart reviewed Patient Chief Complaint: I am fine Problems Identified/Issues Discussed: pt seen in day room, constricted affect, partial eye contact, under productive speech, , denied any current command hallucinations, denied S/H I DSM 5 Symptoms Update: schizophrenia Medication Change: No Medical Record Reviewed: Yes Mental Status Examination - Cognitive Function Orientation: Person, Place, Situation, Time Memory: Impaired Attention: Poor Concentration: Poor Association: WNL Fund of Knowledge: Poor - Mood Mood: Neutral - Affect Affect: Broad - Formal Thought Process Formal Thought Process: Loosening of associations - Suicidal Ideation Suicidal Ideation: No - Homicidal Ideation Homicidal Ideation: No Goal/Treatment Plan - Goal/Treatment Plan Need for Continued Stay: Severe functional impairment Progress Toward Problem(s) and Goals/Treatment Plan: continue current management disposition planning group and supportive therapy Estimated Date of D/C: 03/08/18
--- NOTE | 2018-01-26 13:00 | PN ---
DATE: 01/26/2018 SUBJECTIVE: The patient seen and examined. Interim events noted. Psychiatry followup and intervention noted and appreciated. The patient remains in geropsych unit. Feels okay. Denies any specific complaint. No specific issue reported by nursing staff. PHYSICAL EXAMINATION: GENERAL: The patient is in no acute distress. VITAL SIGNS: Stable. Physical exam is essentially unchanged DIAGNOSTIC DATA: Available diagnostic data reviewed. Accu-Cheks are acceptable. ASSESSMENT AND PLAN: Overall, the patient . Agustin Alvarez MD
[2018-01-26] MEDS: Insulin Detemir 100 Units/ml Inj SC SCH (21:12)
[2018-01-27] MEDS: Levothyroxine 25 MCG TAB PO SCH (05:53)
[2018-01-27] MEDS: guaiFENesin-DM 600-30 mg ER Tab PO SCH ×2 (08:47→16:49)
[2018-01-27] MEDS: Pantoprazole 40 mg EC Tab PO SCH (08:48)
--- NOTE | 2018-01-27 09:26 | PN ---
DATE: 01/27/2018 SUBJECTIVE: The patient seen and examined. Interim events noted. The patient remains in regular medical floor with geropsych unit. Denies any history of specific complaint. No significant issue reported by nursing staff. Accu-Cheks are acceptable. PHYSICAL EXAMINATION: GENERAL: The patient is in no acute distress. VITAL SIGNS: Stable. Physical examination is essentially unchanged. DIAGNOSTIC DATA: Diagnostic data reviewed. ASSESSMENT AND PLAN: Overall, the patient is medically stable. Plan as ordered. Agustin Alvarez MD
--- NOTE | 2018-01-27 14:09 | PCM.PYCHPN ---
Psychiatric Progress Note - Psychiatric Progress Note Patient seen today, length of contact: Pt evaluated, case discussed w/ team, chart reviewed Patient Chief Complaint: I am ok Problems Identified/Issues Discussed: pt seen in day room, constricted affect, partial eye contact, under productive speech, , no reported side effects of medications denied any current command hallucinations, denied S/H I DSM 5 Symptoms Update: schizoaffective disorder Medication Change: No Medical Record Reviewed: Yes Mental Status Examination - Cognitive Function Orientation: Person, Place, Situation, Time Memory: Impaired Attention: Poor Concentration: Poor Association: WNL Fund of Knowledge: Poor - Mood Mood: Neutral - Affect Affect: Broad - Formal Thought Process Formal Thought Process: Loosening of associations - Suicidal Ideation Suicidal Ideation: No - Homicidal Ideation Homicidal Ideation: No Goal/Treatment Plan - Goal/Treatment Plan Need for Continued Stay: Severe functional impairment Progress Toward Problem(s) and Goals/Treatment Plan: continue current management disposition planning group and supportive therapy Estimated Date of D/C: 03/08/18
[2018-01-27] MEDS: Insulin Detemir 100 Units/ml Inj SC SCH (21:01)
[2018-01-28] MEDS: Levothyroxine 25 MCG TAB PO SCH (06:26)
[2018-01-28] MEDS: guaiFENesin-DM 600-30 mg ER Tab PO SCH ×2 (08:37→16:32)
[2018-01-28] MEDS: Pantoprazole 40 mg EC Tab PO SCH (08:38)
--- NOTE | 2018-01-28 09:01 | PCM.PYCHPN ---
Psychiatric Progress Note - Psychiatric Progress Note Patient seen today, length of contact: Pt evaluated, case discussed w/ team, chart reviewed Patient Chief Complaint: Inability to care for self Problems Identified/Issues Discussed: No new events over the weekend. Pt reports that his mood is stable. He denies acute AH/VH/paranoia/delusions. Guardianship process continued. Medication Change: No Medical Record Reviewed: Yes Consults ordered or reviewed: Medicine consult Mental Status Examination - Cognitive Function Orientation: Person, Place, Situation, Time Memory: Impaired Attention: Poor Concentration: Poor Association: WNL Fund of Knowledge: Poor Decription of patient's judgement and insights: Poor I/J - Mood Mood: Neutral - Affect Affect: Broad - Formal Thought Process Formal Thought Process: Loosening of associations Psychotic Thoughts and Behaviors: Denies AH/VH/paranoia/delusions - Suicidal Ideation Suicidal Ideation: No - Homicidal Ideation Homicidal Ideation: No Goal/Treatment Plan - Goal/Treatment Plan Need for Continued Stay: Severe functional impairment Progress Toward Problem(s) and Goals/Treatment Plan: Schizophrenia, Dementia -Continue Risperdal 2 mg PO Q12 -Continue guardianship process -Medical evaluation -Individual and group therapy -Disposition planning Estimated Date of D/C: 03/08/18
--- NOTE | 2018-01-28 09:47 | PN ---
DATE: 01/28/2018 MEDICAL FOLLOWUP SUBJECTIVE: The patient seen and examined. Interim events noted. Psychiatry followup and intervention noted and appreciated. The patient remains in [facility]. Feels okay. The patient denies any specific complaint. No specific issue reported by nursing staff. PHYSICAL EXAMINATION: GENERAL: The patient is in no acute distress. VITAL SIGNS: Stable. Physical exam is essentially unchanged. DIAGNOSTIC DATA: Available diagnostic data reviewed. Accu-Cheks are acceptable. ASSESSMENT AND PLAN: Overall, the patient's general medical condition is stable. Plan as ordered. Agustin Alvarez MD
[2018-01-28 11:51] VITALS: BMI 23.0
[2018-01-28] MEDS: Insulin Detemir 100 Units/ml Inj SC SCH (21:13)
[2018-01-29] MEDS: Levothyroxine 25 MCG TAB PO SCH (06:31)
--- NOTE | 2018-01-29 07:02 | CP.PCM.PN ---
<Kuldeep Jimenez - Last Filed: 01/29/18 09:29> Subjective - Date & Time of Evaluation Date of Evaluation: 01/29/18 Time of Evaluation: 07:02 - Subjective Subjective: Patient seen and examined today at bedside, reports feeling well, no overnight events. No active complaints at this time. Objective - Vital Signs/Intake and Output Vital Signs (last 24 hours): Temp Pulse Resp BP Pulse Ox 97 F L 86 18 100/64 01/29/18 05:49 01/29/18 05:49 01/29/18 05:49 01/29/18 05:49 - Medications Medications: Current Medications Acetaminophen (Tylenol 325mg Tab) 650 mg PO Q4 PRN PRN Reason: Pain, moderate (4-7) Aspirin (Aspirin Chewable) 81 mg PO DAILY [facility] Last Admin: 01/28/18 08:38 Dose: 81 mg Bismuth Subsalicylate (Pepto-Bismol) 524 mg PO Q4 PRN PRN Reason: Diarrhea Glipizide (Glucotrol) 10 mg PO DAILY [facility] Last Admin: 01/28/18 08:38 Dose: 10 mg Guaifenesin/Dextromethorphan (Mucinex-Dm 600-30 Mg) 1 tab PO BID [facility] Last Admin: 01/28/18 16:32 Dose: 1 tab Insulin Detemir (Levemir) 8 units SC HS [facility] Last Admin: 01/28/18 21:13 Dose: 8 units Levothyroxine Sodium (Synthroid) 25 mcg PO DAILY@0630 [facility] Last Admin: 01/29/18 06:31 Dose: 25 mcg Magnesium Hydroxide (Milk Of Magnesia) 30 ml PO HS PRN PRN Reason: Constipation Pantoprazole Sodium (Protonix Ec Tab) 40 mg PO DAILY [facility] Last Admin: 01/28/18 08:38 Dose: 40 mg Risperidone (Risperdal Tab) 2 mg PO Q12 [facility] Last Admin: 01/28/18 21:13 Dose: 2 mg Sitagliptin Phosphate (Januvia) 100 mg PO DAILY [facility] Last Admin: 01/28/18 08:38 Dose: 100 mg Trazodone HCl (Desyrel) 50 mg PO HS PRN PRN Reason: Insomnia - Labs Labs: 01/08/18 06:10 01/08/18 06:10 - Constitutional Appears: No Acute Distress - Respiratory Exam Respiratory Exam: Clear to Ausculation Bilateral, NORMAL BREATHING PATTERN - Cardiovascular Exam Cardiovascular Exam: REGULAR RHYTHM, +S1, +S2 - GI/Abdominal Exam GI & Abdominal Exam: Soft, Normal Bowel Sounds. absent: Distended, Tenderness - Extremities Exam Extremities Exam: absent: Calf Tenderness, Pedal Edema - Neurological Exam Neurological Exam: Alert, Awake Assessment and Plan - Assessment and Plan (Free Text) Assessment: 72 year old male with a PMHx of schizoaffective disorder, dementia and DM admitted to [facility] unit, continue guardianship process. Plan: stable, afebrile continue home medications Psych care as per Psych team Rest of the plan as ordered <Agustin Alvarez K - Last Filed: 02/01/18 14:13> Objective - Vital Signs/Intake and Output Vital Signs (last 24 hours): Temp Pulse Resp BP Pulse Ox 97.2 F L 73 19 123/67 02/01/18 06:00 02/01/18 06:00 02/01/18 06:00 02/01/18 06:00 - Medications Medications: Current Medications Acetaminophen (Tylenol 325mg Tab) 650 mg PO Q4 PRN PRN Reason: Pain, moderate (4-7) Aspirin (Aspirin Chewable) 81 mg PO DAILY [facility] Last Admin: 02/01/18 08:13 Dose: 81 mg Bismuth Subsalicylate (Pepto-Bismol) 524 mg PO Q4 PRN PRN Reason: Diarrhea Glipizide (Glucotrol) 10 mg PO DAILY [facility] Last Admin: 02/01/18 08:14 Dose: 10 mg Guaifenesin/Dextromethorphan (Mucinex-Dm 600-30 Mg) 1 tab PO BID [facility] Last Admin: 02/01/18 08:14 Dose: 1 tab Insulin Detemir (Levemir) 8 units SC HS [facility] Last Admin: 01/31/18 21:05 Dose: 8 units Levothyroxine Sodium (Synthroid) 25 mcg PO DAILY@0630 [facility] Last Admin: 02/01/18 06:14 Dose: 25 mcg Magnesium Hydroxide (Milk Of Magnesia) 30 ml PO HS PRN PRN Reason: Constipation Pantoprazole Sodium (Protonix Ec Tab) 40 mg PO DAILY [facility] Last Admin: 02/01/18 08:14 Dose: 40 mg Risperidone (Risperdal Tab) 2 mg PO BID [facility] Last Admin: 02/01/18 08:14 Dose: 2 mg Sitagliptin Phosphate (Januvia) 100 mg PO DAILY [facility] Last Admin: 02/01/18 08:14 Dose: 100 mg Trazodone HCl (Desyrel) 50 mg PO HS PRN PRN Reason: Insomnia - Labs Labs: 01/08/18 06:10 01/08/18 06:10 Assessment and Plan - Assessment and Plan (Free Text) Assessment: Patient was personally seen and examined by me in rounds with residents. Available labs and diagnostic data reviewed. Case, Patient's condition and management plan discussed with residents in rounds. Agree with resident's progress note. Plan: As ordered.
[2018-01-29] MEDS: guaiFENesin-DM 600-30 mg ER Tab PO SCH ×2 (08:27→16:47)
[2018-01-29] MEDS: Pantoprazole 40 mg EC Tab PO SCH (08:27)
--- NOTE | 2018-01-29 08:48 | PCM.PYCHPN ---
Psychiatric Progress Note - Psychiatric Progress Note Patient seen today, length of contact: Pt evaluated, case discussed w/ team, chart reviewed Patient Chief Complaint: Inability to care for self Problems Identified/Issues Discussed: No new events. Pt reports that his mood is stable. He denies acute AH/VH/paranoia/delusions. Guardianship process continued. Medication Change: No Medical Record Reviewed: Yes Consults ordered or reviewed: Medicine consult Mental Status Examination - Cognitive Function Orientation: Person, Place, Situation, Time Memory: Impaired Attention: Poor Concentration: Poor Association: WNL Fund of Knowledge: Poor Decription of patient's judgement and insights: Poor I/J - Mood Mood: Neutral - Affect Affect: Broad - Formal Thought Process Formal Thought Process: Loosening of associations Psychotic Thoughts and Behaviors: Denies AH/VH/paranoia/delusions - Suicidal Ideation Suicidal Ideation: No - Homicidal Ideation Homicidal Ideation: No Goal/Treatment Plan - Goal/Treatment Plan Need for Continued Stay: Severe functional impairment Progress Toward Problem(s) and Goals/Treatment Plan: Schizophrenia, Dementia -Continue Risperdal 2 mg PO Q12 -Continue guardianship process -Medical evaluation -Individual and group therapy -Disposition planning Estimated Date of D/C: 03/08/18
[2018-01-29] MEDS: Insulin Detemir 100 Units/ml Inj SC SCH (21:05)
[2018-01-30] MEDS: Levothyroxine 25 MCG TAB PO SCH (06:50)
--- NOTE | 2018-01-30 07:17 | CP.PCM.PN ---
<Kuldeep Jimenez - Last Filed: 01/30/18 07:17> Subjective - Date & Time of Evaluation Date of Evaluation: 01/30/18 Time of Evaluation: 07:14 - Subjective Subjective: Patient seen and examined today with Dr Alvarez, doing well, no overnight events. Objective - Vital Signs/Intake and Output Vital Signs (last 24 hours): Temp Pulse Resp BP Pulse Ox 97.4 F L 61 18 134/73 01/30/18 05:45 01/30/18 05:45 01/30/18 05:45 01/30/18 05:45 - Medications Medications: Current Medications Acetaminophen (Tylenol 325mg Tab) 650 mg PO Q4 PRN PRN Reason: Pain, moderate (4-7) Aspirin (Aspirin Chewable) 81 mg PO DAILY [facility] Last Admin: 01/29/18 08:27 Dose: 81 mg Bismuth Subsalicylate (Pepto-Bismol) 524 mg PO Q4 PRN PRN Reason: Diarrhea Glipizide (Glucotrol) 10 mg PO DAILY [facility] Last Admin: 01/29/18 08:27 Dose: 10 mg Guaifenesin/Dextromethorphan (Mucinex-Dm 600-30 Mg) 1 tab PO BID [facility] Last Admin: 01/29/18 16:47 Dose: 1 tab Insulin Detemir (Levemir) 8 units SC HS [facility] Last Admin: 01/29/18 21:05 Dose: 8 units Levothyroxine Sodium (Synthroid) 25 mcg PO DAILY@0630 [facility] Last Admin: 01/30/18 06:50 Dose: 25 mcg Magnesium Hydroxide (Milk Of Magnesia) 30 ml PO HS PRN PRN Reason: Constipation Pantoprazole Sodium (Protonix Ec Tab) 40 mg PO DAILY [facility] Last Admin: 01/29/18 08:27 Dose: 40 mg Risperidone (Risperdal Tab) 2 mg PO Q12 [facility] Last Admin: 01/29/18 21:05 Dose: 2 mg Sitagliptin Phosphate (Januvia) 100 mg PO DAILY [facility] Last Admin: 01/29/18 08:27 Dose: 100 mg Trazodone HCl (Desyrel) 50 mg PO HS PRN PRN Reason: Insomnia - Labs Labs: 01/08/18 06:10 01/08/18 06:10 - Constitutional Appears: No Acute Distress - Respiratory Exam Respiratory Exam: Clear to Ausculation Bilateral, NORMAL BREATHING PATTERN - Cardiovascular Exam Cardiovascular Exam: REGULAR RHYTHM, +S1, +S2 - GI/Abdominal Exam GI & Abdominal Exam: Soft, Normal Bowel Sounds. absent: Distended, Tenderness - Extremities Exam Extremities Exam: absent: Pedal Edema - Neurological Exam Neurological Exam: Alert, Awake Assessment and Plan - Assessment and Plan (Free Text) Assessment: 72 year old male with a PMHx of schizoaffective disorder, dementia and DM admitted to [facility] unit, continue guardianship process. Plan: stable Psych care as per Psych team Rest of the plan as ordered <Agustin Alvarez K - Last Filed: 02/01/18 14:11> Objective - Vital Signs/Intake and Output Vital Signs (last 24 hours): Temp Pulse Resp BP Pulse Ox 97.2 F L 73 19 123/67 02/01/18 06:00 02/01/18 06:00 02/01/18 06:00 02/01/18 06:00 - Medications Medications: Current Medications Acetaminophen (Tylenol 325mg Tab) 650 mg PO Q4 PRN PRN Reason: Pain, moderate (4-7) Aspirin (Aspirin Chewable) 81 mg PO DAILY [facility] Last Admin: 02/01/18 08:13 Dose: 81 mg Bismuth Subsalicylate (Pepto-Bismol) 524 mg PO Q4 PRN PRN Reason: Diarrhea Glipizide (Glucotrol) 10 mg PO DAILY [facility] Last Admin: 02/01/18 08:14 Dose: 10 mg Guaifenesin/Dextromethorphan (Mucinex-Dm 600-30 Mg) 1 tab PO BID [facility] Last Admin: 02/01/18 08:14 Dose: 1 tab Insulin Detemir (Levemir) 8 units SC HS [facility] Last Admin: 01/31/18 21:05 Dose: 8 units Levothyroxine Sodium (Synthroid) 25 mcg PO DAILY@0630 [facility] Last Admin: 02/01/18 06:14 Dose: 25 mcg Magnesium Hydroxide (Milk Of Magnesia) 30 ml PO HS PRN PRN Reason: Constipation Pantoprazole Sodium (Protonix Ec Tab) 40 mg PO DAILY [facility] Last Admin: 02/01/18 08:14 Dose: 40 mg Risperidone (Risperdal Tab) 2 mg PO BID [facility] Last Admin: 02/01/18 08:14 Dose: 2 mg Sitagliptin Phosphate (Januvia) 100 mg PO DAILY [facility] Last Admin: 02/01/18 08:14 Dose: 100 mg Trazodone HCl (Desyrel) 50 mg PO HS PRN PRN Reason: Insomnia - Labs Labs: 01/08/18 06:10 01/08/18 06:10 Assessment and Plan - Assessment and Plan (Free Text) Assessment: Patient was personally seen and examined by me in rounds with residents. Available labs and diagnostic data reviewed. Case, Patient's condition and management plan discussed with residents in rounds. Agree with resident's progress note. Plan: As ordered.
[2018-01-30] MEDS: guaiFENesin-DM 600-30 mg ER Tab PO SCH ×2 (08:17→16:29)
[2018-01-30] MEDS: Pantoprazole 40 mg EC Tab PO SCH (08:18)
--- NOTE | 2018-01-30 09:24 | PCM.PYCHPN ---
Psychiatric Progress Note - Psychiatric Progress Note Patient seen today, length of contact: Pt evaluated, case discussed w/ team, chart reviewed Patient Chief Complaint: Inability to care for self Problems Identified/Issues Discussed: No new events overnight. Pt reports that his mood is stable. He denies acute AH/VH/paranoia/delusions. Guardianship process continued. Medication Change: No Medical Record Reviewed: Yes Consults ordered or reviewed: Medicine consult Mental Status Examination - Cognitive Function Orientation: Person, Place, Situation, Time Memory: Impaired Attention: Poor Concentration: Poor Association: WNL Fund of Knowledge: Poor Decription of patient's judgement and insights: Poor I/J - Mood Mood: Neutral - Affect Affect: Broad - Formal Thought Process Formal Thought Process: Loosening of associations Psychotic Thoughts and Behaviors: Denies AH/VH/paranoia/delusions - Suicidal Ideation Suicidal Ideation: No - Homicidal Ideation Homicidal Ideation: No Goal/Treatment Plan - Goal/Treatment Plan Need for Continued Stay: Severe functional impairment Progress Toward Problem(s) and Goals/Treatment Plan: Schizophrenia, Dementia -Continue Risperdal 2 mg PO Q12 -Continue guardianship process -Medical evaluation -Individual and group therapy -Disposition planning Estimated Date of D/C: 03/08/18
--- NOTE | 2018-01-30 14:56 | PCM.BM ---
Treatment Plan Problems - Problems identified on initial assessmt Altered Thought Process Date Initiated: 01/07/18 Time Initiated: 19:11 Assessment reference: NA Status: Active Treatment assets and liabiliti Patient Assests: adapts well, cooperative, negotiates basic needs Patient Liabilities: live alone, poor support system, imparied memory - Milieu Protocol Maintain good personal hygiene: daily Encourage regular showers, daily Remind patient to perform daily oral care, daily Assist patient to perform ADL's Conduct patient checks and document Observation sheet: Q15 minutes Maintain personal safety: every shift Educate patient to report safety concerns to staff, every shift Monitor environment for contraband/sharps Medication safety: Monitor for expected outcome, potential side effects: every shift, Assess barriers to learning: every shift, Assess readiness for medication education: every shift Milieu Narrative: Schizophrenia, Dementia -Continue Risperdal 2 mg PO Q12 -Continue guardianship process -Medical evaluation -Individual and group therapy -Disposition planning Family Contact Family involvement: No known Family/SO - Outside Agency Kathia Anguiano Esq Care involvment: Information-sharing Agency contact number: [phone] - Goals for Treatment Patient goals for treatment: Pt to be encouraged to attend activity and clinical groups 3-5x per week to decrease symptoms of paranoia, delusions and employ reality testing. Pt to be encouraged to participate in group milieu to develop coping skills to reduce psychiatric hospitalizations and further decompensation. Coordinate discharge resources needs by providing referral for psychiatric roni tment follow up in the community. Discharge/Continuing Care - Education Needs Education Needs: Patient Medication, Patient Diagnosis/Disease Process, Patient Coping Skills, Patient Placement options, Patient Community resources, Patient Activities of Daily Living, Patient Nutrition, Patient Uses of Medical Equipment, Patient Health Practices/Safety, Patient Personal Hygiene/Grooming, Patient Aftercare Safety Plan - Discharge Discharge Criteria: Tolerates medication w/o severe side effects, Free of agitation, Normal sleep pattern, Ability to care for self, Reduction of target symptoms Discharge to:: Home, Other (Pt is pending guardianship. Court hearing scheduled for 02/21/2018. ) - Additional Comments 01/09/18 13:22 Pt seen and discussed in team meeting. Reason for return to [facility] reviewed and discussed. Pt reported feeling "alright." Pt reported that he was on the medical unit due to "blood problems." Pt expressed feeling gratitude for being able to return to [facility] and continue psychiatric treatment. Telecommunication Tower Technician informed pt that guardi anship was initiated and pending court hearing is for February 21, 2018. Pt verbalized understanding of same and reported that he has the paperwork in his room. Pt's medications reviewed and discussed. Pt in agreement to continue tx howard and prescribed medications. Telecommunication Tower Technician will continue to follow case. - Treatment Team Participation Patient/Family/SO Statement: Schizophrenia, Dementia -Continue Risperdal 2 mg PO Q12 -Continue guardianship process -Medical evaluation -Individual and group therapy -Disposition planning Discussed with Family/SO: No Was Patient/Family/SO present at Treatment Team Meeting: Yes Treatment Plan Review Patient participation: Yes Family/SO/Caregiver participation: No Additional Comments: Pt seen and discussed in team meeting. Pt's progress and bx on the unit reviewed. Pt reported feeling "good everyday." Pt reported no complications with his prescribed medications. Pt requested for his medications (Risperdal) to be switched from 9am to 5pm. Pt reported good sleep and appetite. Pt actively participates in clinical and activity groups. Pt is observed to be interacting with peers and staff members appropriately. Pt aware of pending court date for February. Tx plan reviewed and discussed, pt is agreeable. Pt to continue to participate daily group milieu, daily physician monitoring and evaluation, qshift RN monitoring, medication regimen, and SW to continue to follow case. - Problem Altered Thought Process Date Initiated: 01/07/18 Time Initiated: 19:11 Progress toward outcomes: unchanged (Pt continues to display poor insight and judgment into his mental illness. Pt is intermittently forgetful and confused.) - Discharge / Continuing Care Discharge to:: Home Behavioral Health Services: Outpatient therapy, Home health care, Adult day care Health Needs: Follow up care/test, Doctor appointments, Nutritional, Medications/Rx, Educational, Recreational/Social
[2018-01-30] MEDS: Insulin Detemir 100 Units/ml Inj SC SCH (21:06)
[2018-01-31] MEDS: Levothyroxine 25 MCG TAB PO SCH (06:01)
[2018-01-31] MEDS: guaiFENesin-DM 600-30 mg ER Tab PO SCH ×2 (08:57→17:30)
[2018-01-31] MEDS: Pantoprazole 40 mg EC Tab PO SCH (08:58)
--- NOTE | 2018-01-31 10:53 | PN ---
DATE: 01/31/2018 SUBJECTIVE: The patient seen and examined. Interim events noted. Psychiatry and psychologist intervention noted and appreciated. The patient remains in regular medical floor, Geropsych Unit. Feels okay. Denies any specific complaint. No specific issue reported by nursing staff. PHYSICAL EXAMINATION: GENERAL: The patient is in no acute distress. VITAL SIGNS: Stable. Physical exam is essentially unchanged. DIAGNOSTIC DATA: Available diagnostic data . Accu-Cheks are acceptable 201. ASSESSMENT AND PLAN: Plan as ordered. Agustin Alvarez MD
[2018-01-31] MEDS: Insulin Detemir 100 Units/ml Inj SC SCH (21:05)
[2018-02-01] MEDS: Levothyroxine 25 MCG TAB PO SCH (06:14)
--- NOTE | 2018-02-01 07:40 | CP.PCM.PN ---
<Kuldeep Jimenez - Last Filed: 02/01/18 09:57> Subjective - Date & Time of Evaluation Date of Evaluation: 02/01/18 Time of Evaluation: 07:40 - Subjective Subjective: patient seen and examined this morning, no overnight events, reports feeling well, no active complaints today. Objective - Vital Signs/Intake and Output Vital Signs (last 24 hours): Temp Pulse Resp BP Pulse Ox 97.2 F L 73 19 123/67 02/01/18 06:00 02/01/18 06:00 02/01/18 06:00 02/01/18 06:00 - Medications Medications: Current Medications Acetaminophen (Tylenol 325mg Tab) 650 mg PO Q4 PRN PRN Reason: Pain, moderate (4-7) Aspirin (Aspirin Chewable) [address] [facility] Last Admin: 01/31/18 08:57 Dose: 81 mg Bismuth Subsalicylate (Pepto-Bismol) 524 mg PO Q4 PRN PRN Reason: Diarrhea Glipizide (Glucotrol) [address] [facility] Last Admin: 01/31/18 08:58 Dose: 10 mg Guaifenesin/Dextromethorphan (Mucinex-Dm 600-30 Mg) [address] [facility] Last Admin: 01/31/18 17:30 Dose: 1 tab Insulin Detemir (Levemir) [address] [facility] Last Admin: 01/31/18 21:05 Dose: 8 units Levothyroxine Sodium (Synthroid) 25 mcg PO DAILY@0630 [facility] Last Admin: 02/01/18 06:14 Dose: 25 mcg Magnesium Hydroxide (Milk Of Magnesia) 30 ml PO HS PRN PRN Reason: Constipation Pantoprazole Sodium (Protonix Ec Tab) [address] [facility] Last Admin: 01/31/18 08:58 Dose: 40 mg Risperidone (Risperdal Tab) [address] [facility] Last Admin: 01/31/18 17:32 Dose: 2 mg Sitagliptin Phosphate (Januvia) [address] [facility] Last Admin: 01/31/18 08:57 Dose: 100 mg Trazodone HCl (Desyrel) 50 mg PO HS PRN PRN Reason: Insomnia - Labs Labs: 01/08/18 06:10 01/08/18 06:10 - Constitutional Appears: No Acute Distress - Head Exam Head Exam: NORMAL INSPECTION - Respiratory Exam Respiratory Exam: Clear to Ausculation Bilateral, NORMAL BREATHING PATTERN - Cardiovascular Exam Cardiovascular Exam: REGULAR RHYTHM, +S1, +S2 - GI/Abdominal Exam GI & Abdominal Exam: Soft, Normal Bowel Sounds. absent: Distended, Tenderness - Extremities Exam Extremities Exam: absent: Calf Tenderness, Pedal Edema - Neurological Exam Neurological Exam: Alert, Awake - Skin Skin Exam: Dry, Warm Assessment and Plan - Assessment and Plan (Free Text) Assessment: 72 year old male with a PMHx of schizoaffective disorder, dementia and DM admitted to [facility]ero[facility] unit, continue guardianship process. Plan: stable Psych care as per Psych team Rest of the plan as ordered <Agustin Alvarez K - Last Filed: 02/01/18 14:10> Objective - Vital Signs/Intake and Output Vital Signs (last 24 hours): Temp Pulse Resp BP Pulse Ox 97.2 F L 73 19 123/67 02/01/18 06:00 02/01/18 06:00 02/01/18 06:00 02/01/18 06:00 - Medications Medications: Current Medications Acetaminophen (Tylenol 325mg Tab) 650 mg PO Q4 PRN PRN Reason: Pain, moderate (4-7) Aspirin (Aspirin Chewable) [address] [facility] Last Admin: 02/01/18 08:13 Dose: 81 mg Bismuth Subsalicylate (Pepto-Bismol) 524 mg PO Q4 PRN PRN Reason: Diarrhea Glipizide (Glucotrol) [address] [facility] Last Admin: 02/01/18 08:14 Dose: 10 mg Guaifenesin/Dextromethorphan (Mucinex-Dm 600-30 Mg) [address] [facility] Last Admin: 02/01/18 08:14 Dose: 1 tab Insulin Detemir (Levemir) [address] [facility] Last Admin: 01/31/18 21:05 Dose: 8 units Levothyroxine Sodium (Synthroid) 25 mcg PO DAILY@0630 [facility] Last Admin: 02/01/18 06:14 Dose: 25 mcg Magnesium Hydroxide (Milk Of Magnesia) 30 ml PO HS PRN PRN Reason: Constipation Pantoprazole Sodium (Protonix Ec Tab) [address] [facility] Last Admin: 11/23/18 08:14 Dose: 40 mg Risperidone (Risperdal Tab) [address] [facility] Last Admin: 02/01/18 08:14 Dose: 2 mg Sitagliptin Phosphate (Januvia) [address] [facility] Last Admin: 02/01/18 08:14 Dose: 100 mg Trazodone HCl (Desyrel) 50 mg PO HS PRN PRN Reason: Insomnia - Labs Labs: 01/08/18 06:10 01/08/18 06:10 Assessment and Plan - Assessment and Plan (Free Text) Assessment: Patient was personally seen and examined by me in rounds with residents. Available labs and diagnostic data reviewed. Case, Patient's condition and management plan discussed with residents in rounds. Agree with resident's progress note. Plan: As ordered.
[2018-02-01] MEDS: Pantoprazole 40 mg EC Tab PO SCH (08:14)
[2018-02-01] MEDS: guaiFENesin-DM 600-30 mg ER Tab PO SCH ×2 (08:14→16:42)
--- NOTE | 2018-02-01 08:26 | PCM.PYCHPN ---
Psychiatric Progress Note - Psychiatric Progress Note Patient seen today, length of contact: Pt evaluated, case discussed w/ team, chart reviewed Patient Chief Complaint: Inability to care for self Problems Identified/Issues Discussed: Pt reports that his mood is stable. He denies acute AH/VH/paranoia/delusions. Guardianship process continued. Medication Change: No Medical Record Reviewed: Yes Consults ordered or reviewed: Medicine consult Mental Status Examination - Cognitive Function Orientation: Person, Place, Situation, Time Memory: Impaired Attention: Poor Concentration: Poor Association: WNL Fund of Knowledge: Poor Decription of patient's judgement and insights: Poor I/J - Mood Mood: Neutral - Affect Affect: Broad - Formal Thought Process Formal Thought Process: Loosening of associations Psychotic Thoughts and Behaviors: Denies AH/VH/paranoia/delusions - Suicidal Ideation Suicidal Ideation: No - Homicidal Ideation Homicidal Ideation: No Goal/Treatment Plan - Goal/Treatment Plan Need for Continued Stay: Severe functional impairment Progress Toward Problem(s) and Goals/Treatment Plan: Schizophrenia, Dementia -Continue Risperdal 2 mg PO Q12 -Continue guardianship process -Medical evaluation -Individual and group therapy -Disposition planning Estimated Date of D/C: 03/08/18
[2018-02-01] MEDS: Insulin Detemir 100 Units/ml Inj SC SCH (21:12)
[2018-02-02] MEDS: Levothyroxine 25 MCG TAB PO SCH (06:22)
[2018-02-02] MEDS: guaiFENesin-DM 600-30 mg ER Tab PO SCH ×2 (08:39→16:44)
[2018-02-02] MEDS: Pantoprazole 40 mg EC Tab PO SCH (08:40)
--- NOTE | 2018-02-02 12:01 | PN ---
DATE: 02/02/2018 SUBJECTIVE: The patient seen and examined. Interim events noted. Psychiatry followup and intervention noted and appreciated. The patient remains in geropsych Unit. Awake, responsive, feels okay. Denies any specific medical complaints. PHYSICAL EXAMINATION: GENERAL: The patient is in no acute distress. VITAL SIGNS: Stable. Physical exam is essentially unchanged. DIAGNOSTIC DATA: Available diagnostic data reviewed. ASSESSMENT AND PLAN: Overall, the patient's general medical condition is stable. Accu-Cheks are acceptable. Plan as ordered. Agustin Alvarez MD
[2018-02-02] MEDS: Insulin Detemir 100 Units/ml Inj SC SCH (21:11)
[2018-02-03] MEDS: Levothyroxine 25 MCG TAB PO SCH (06:18)
--- NOTE | 2018-02-03 07:27 | PN ---
DATE: 02/03/2018 SUBJECTIVE: The patient is seen and examined. Interim events noted. Psychiatric followup and intervention noted and appreciated. The patient remains in geropsych unit. The patient feels okay. Denies any specific complaint. No specific issue reported by nursing staff. PHYSICAL EXAMINATION: GENERAL: The patient is in no acute distress. VITAL SIGNS: Stable. Physical exam is essentially unchanged. DIAGNOSTIC DATA: Available diagnostic data reviewed. ASSESSMENT AND PLAN: Overall, the patient's general medical condition is stable. Plan as ordered. Agustin Alvarez MD
[2018-02-03] MEDS: guaiFENesin-DM 600-30 mg ER Tab PO SCH ×2 (08:53→17:29)
[2018-02-03] MEDS: Pantoprazole 40 mg EC Tab PO SCH (08:53)
[2018-02-03] MEDS: Insulin Detemir 100 Units/ml Inj SC SCH (21:18)
--- NOTE | 2018-02-04 08:26 | PN ---
DATE: 02/04/2018 SUBJECTIVE: The patient seen and examined. Interim events noted. Psychiatric care, followup and intervention noted and appreciated. The patient remains in geropsych unit. Awake, responsive, ambulatory. Feels okay. Denies any specific complaint. No specific issue reported by nursing staff. PHYSICAL EXAMINATION: GENERAL: The patient is in no acute distress. VITAL SIGNS: Stable. Physical exam is essentially unchanged. DIAGNOSTIC DATA: Available diagnostic data reviewed. Accu-Cheks are acceptable. ASSESSMENT AND PLAN: Overall, the patient is medically stable. Plan as ordered. Agustin Alvarez MD
[2018-02-04] MEDS: guaiFENesin-DM 600-30 mg ER Tab PO SCH ×2 (08:28→16:49)
[2018-02-04] MEDS: Pantoprazole 40 mg EC Tab PO SCH (08:28)
[2018-02-04] MEDS: Levothyroxine 25 MCG TAB PO SCH (08:29)
[2018-02-04] MEDS: Insulin Detemir 100 Units/ml Inj SC SCH (21:05)
--- NOTE | 2018-02-05 08:04 | PCM.PYCHPN ---
Psychiatric Progress Note - Psychiatric Progress Note Patient seen today, length of contact: Pt evaluated, case discussed w/ team, chart reviewed Patient Chief Complaint: Inability to care for self Problems Identified/Issues Discussed: No new events. Pt reports that his mood is stable. He denies acute AH/VH/paranoia/delusions. Guardianship process continued. Medication Change: No Medical Record Reviewed: Yes Consults ordered or reviewed: Medicine consult Mental Status Examination - Cognitive Function Orientation: Person, Place, Situation, Time Memory: Impaired Attention: Poor Concentration: Poor Association: WNL Fund of Knowledge: Poor Decription of patient's judgement and insights: Poor I/J - Mood Mood: Neutral - Affect Affect: Broad - Formal Thought Process Formal Thought Process: Loosening of associations Psychotic Thoughts and Behaviors: Denies AH/VH/paranoia/delusions - Suicidal Ideation Suicidal Ideation: No - Homicidal Ideation Homicidal Ideation: No Goal/Treatment Plan - Goal/Treatment Plan Need for Continued Stay: Severe functional impairment Progress Toward Problem(s) and Goals/Treatment Plan: Schizophrenia, Dementia -Continue Risperdal 2 mg PO Q12 -Medical evaluation -Individual and group therapy -Disposition planning- pending court date for guardianship proceedings Estimated Date of D/C: 03/08/18
--- NOTE | 2018-02-05 08:31 | PN ---
DATE: 02/05/2018 SUBJECTIVE: The patient seen and examined. Interim events noted. Psychiatric followup and intervention noted and appreciated. Accu-Checks reviewed. The patient remains in geropsych unit ____. The patient denies any specific complaint. No chest pain. No shortness of breath. PHYSICAL EXAMINATION: GENERAL: The patient is in no acute distress. VITAL SIGNS: Stable. Physical exam is essentially unchanged. DIAGNOSTIC DATA: Available diagnostic data reviewed. ASSESSMENT AND PLAN: Overall the patient's general medical condition is stable. Plan as ordered. Agustin Alvarez MD
[2018-02-05] MEDS: Pantoprazole 40 mg EC Tab PO SCH (08:32)
[2018-02-05] MEDS: Levothyroxine 25 MCG TAB PO SCH (08:33)
--- NOTE | 2018-02-05 08:38 | PN ---
DATE: 01/05/2018 SUBJECTIVE: The patient was seen and examined. Interim events noted. Psychiatry followup and intervention noted and appreciated. The patient remains in geropsych unit. Feels okay. Denies any new medical complaint. No specific medical issue reported by nursing staff. PHYSICAL EXAMINATION: GENERAL: The patient is in no acute distress. VITAL SIGNS: Stable. Physical exam is essentially unchanged. DIAGNOSTIC DATA: Available diagnostic data reviewed. ASSESSMENT AND PLAN: Overall, the patient's general medical condition is stable. Plan as ordered. Agustin Alvarez MD
[2018-02-06] MEDS ORDERED: Levothyroxine 25 MCG TAB PO ONE (07:30)
--- NOTE | 2018-02-06 08:08 | PCM.PYCHPN ---
Psychiatric Progress Note - Psychiatric Progress Note Patient seen today, length of contact: Pt evaluated, case discussed w/ team, chart reviewed Patient Chief Complaint: Inability to care for self Problems Identified/Issues Discussed: Pt reports that his mood is stable. He denies acute AH/VH/paranoia/delusions. Guardianship process continued. Medication Change: No Medical Record Reviewed: Yes Consults ordered or reviewed: Medicine consult Mental Status Examination - Cognitive Function Orientation: Person, Place, Situation, Time Memory: Impaired Attention: Poor Concentration: Poor Association: Loose Fund of Knowledge: Poor Decription of patient's judgement and insights: Poor I/J - Mood Mood: Neutral - Affect Affect: Broad - Formal Thought Process Formal Thought Process: Loosening of associations Psychotic Thoughts and Behaviors: Denies AH/VH/paranoia/delusions - Suicidal Ideation Suicidal Ideation: No - Homicidal Ideation Homicidal Ideation: No Goal/Treatment Plan - Goal/Treatment Plan Need for Continued Stay: Severe functional impairment Progress Toward Problem(s) and Goals/Treatment Plan: Schizophrenia, Dementia -Continue Risperdal 2 mg PO Q12 -Medical evaluation -Individual and group therapy -Disposition planning- Court date for guardianship 02/21/18 Estimated Date of D/C: 03/08/18
[2018-02-06] MEDS: Pantoprazole 40 mg EC Tab PO SCH (08:49)
--- NOTE | 2018-02-06 12:23 | PN ---
DATE: 02/06/2018 SUBJECTIVE: The patient seen and examined. Interim events noted. Psychiatric followup and intervention noted and appreciated. The patient remains in geropsych unit. ____. Denies any specific complaint of chest pain. No shortness of breath. PHYSICAL EXAMINATION: GENERAL: The patient is in no acute distress. VITAL SIGNS: Stable. Physical exam is essentially unchanged. DIAGNOSTIC DATA: Available diagnostic data reviewed. ASSESSMENT AND PLAN: Overall, the patient's general medical condition is stable. Plan as ordered. Agustin Alvarez MD
--- NOTE | 2018-02-06 15:52 | PCM.BM ---
Treatment Plan Problems - Problems identified on initial assessmt Altered Thought Process Date Initiated: 01/07/18 Time Initiated: 19:11 Assessment reference: NA Status: Active Treatment assets and liabiliti Patient Assests: adapts well, cooperative, negotiates basic needs Patient Liabilities: live alone, poor support system, imparied memory - Milieu Protocol Maintain good personal hygiene: daily Encourage regular showers, daily Remind patient to perform daily oral care, daily Assist patient to perform ADL's Conduct patient checks and document Observation sheet: Q15 minutes Maintain personal safety: every shift Educate patient to report safety concerns to staff, every shift Monitor environment for contraband/sharps Medication safety: Monitor for expected outcome, potential side effects: every shift, Assess barriers to learning: every shift, Assess readiness for medication education: every shift Milieu Narrative: Schizophrenia, Dementia -Continue Risperdal 2 mg PO Q12 -Medical evaluation -Individual and group therapy -Disposition planning- Court date for guardianship 02/21/18 Family Contact Family involvement: No known Family/SO - Outside Agency Kathia Anguiano Esq Care involvment: Information-sharing Agency contact number: [phone] - Goals for Treatment Patient goals for treatment: Pt to be encouraged to attend activity and clinical groups 3-5x per week to decrease symptoms of paranoia, delusions and employ reality testing. Pt to be encouraged to participate in group milieu to develop coping skills to reduce psychiatric hospitalizations and further decompensation. Coordinate discharge resources needs by providing referral for psychiatric treatment follow up in the community. Discharge/Continuing Care - Education Needs Education Needs: Patient Medication, Patient Diagnosis/Disease Process, Patient Coping Skills, Patient Placement options, Patient Community resources, Patient Activities of Daily Living, Patient Nutrition, Patient Uses of Medical Equipment, Patient Health Practices/Safety, Patient Personal Hygiene/Grooming, Patient Aftercare Safety Plan - Discharge Discharge Criteria: Tolerates medication w/o severe side effects, Free of agitation, Normal sleep pattern, Ability to care for self, Reduction of target symptoms Discharge to:: Home - Additional Comments 01/09/18 13:22 Pt seen and discussed in team meeting. Reason for return to [facility] reviewed and discussed. Pt reported feeling "alright." Pt reported that he was on the medical unit due to "blood problems." Pt expressed feeling gratitude for being able to return to [facility] and continue psychiatric treatment. Casing Cooker informed pt that guardianship was initiated and pending court hearing is for February 21, 2018. Pt verbalized understanding of same and reported that he has the paperwork in his room. Pt's medications reviewed and discussed. Pt in agreement to continue tx howard and prescribed medications. Casing [employer]er will continue to follow case. - Treatment Team Participation Patient/Family/SO Statement: Schizophrenia, Dementia -Continue Risperdal 2 mg PO Q12 -Medical evaluation -Individual and group therapy -Disposition planning- Court date for guardianship 02/21/18 Discussed with Family/SO: No Was Patient/Family/SO present at Treatment Team Meeting: Yes Treatment Plan Review Patient participation: Yes Family/SO/Caregiver participation: No Additional Comments: Pt seen and discussed in team meeting. Pt's progress and bx on the unit reviewed. Pt reported feeling "good." Pt reported no complaints with prescribed medications. Pt reported good sleep and appetite. Pt actively participates in clinical and activity groups. Pt is observed to be interacting with peers and staff members appropriately. Pt reported that he likes to stay out of trouble and therefore "stay away from that miriam." Pt and peer [employer] have had several disagreements and verbal altercations. Pt aware of pending court date for February 21. Tx plan reviewed and discussed, pt is agreeable. Pt to continue to participate daily group milieu, daily physician monitoring and evaluation, qshift RN monitoring, medication regimen, and SW to continue to follow case. - Problem Altered Thought Process Date Initiated: 01/07/18 Time Initiated: 19:11 Progress toward outcomes: unchanged (Pt continues to display poor insight and judgment into his mental illness. Pt is intermittently forgetful and confused.) - Discharge / Continuing Care Discharge to:: Home Behavioral Health Services: Outpatient therapy, Home health care, Adult day care Health Needs: Follow up care/test, Doctor appointments, Nutritional, Medications/Rx, Educational, Recreational/Social
[2018-02-06] MEDS: Insulin Detemir 100 Units/ml Inj SC SCH (21:21)
[2018-02-07] MEDS: Levothyroxine 25 MCG TAB PO SCH (06:24)
--- NOTE | 2018-02-07 08:04 | PCM.PYCHPN ---
Psychiatric Progress Note - Psychiatric Progress Note Patient seen today, length of contact: Pt evaluated, case discussed w/ team, chart reviewed Patient Chief Complaint: Inability to care for self Problems Identified/Issues Discussed: No new events overnight. Pt reports that his mood is stable. He denies acute AH/VH/paranoia/delusions. Guardianship process continued. Medication Change: No Medical Record Reviewed: Yes Consults ordered or reviewed: Medicine consult Mental Status Examination - Cognitive Function Orientation: Person, Place, Situation, Time Memory: Impaired Attention: Poor Concentration: Poor Association: Loose Fund of Knowledge: Poor Decription of patient's judgement and insights: Poor I/J - Mood Mood: Neutral - Affect Affect: Broad - Speech Speech: Appropriate - Formal Thought Process Formal Thought Process: Loosening of associations Psychotic Thoughts and Behaviors: Denies AH/VH/paranoia/delusions - Suicidal Ideation Suicidal Ideation: No - Homicidal Ideation Homicidal Ideation: No Goal/Treatment Plan - Goal/Treatment Plan Need for Continued Stay: Severe functional impairment Progress Toward Problem(s) and Goals/Treatment Plan: Schizophrenia, Dementia -Continue Risperdal 2 mg PO Q12 -Medical evaluation -Individual and group therapy -Disposition planning- Court date for guardianship 02/21/18 Estimated Date of D/C: 03/08/18
[2018-02-07] MEDS: Pantoprazole 40 mg EC Tab PO SCH (09:30)
[2018-02-07] MEDS: Insulin Detemir 100 Units/ml Inj SC SCH (21:09)
[2018-02-08] MEDS: Levothyroxine 25 MCG TAB PO SCH (05:49)
[2018-02-08 06:27] LABS: HEMOGLOBIN 13.7 g/dL (12.0-18.0); MEAN CORPUSCULAR HEMOGLOBIN 29.1 pg (27.0-31.0); MEAN CORPUSCULAR HGB CONC 33.1 g/dL (33.0-37.0); RBC 4.71 Mil/uL (4.40-5.90); RED CELL DISTRIBUTION WIDTH 13.7 % (11.5-14.5); WHITE BLOOD COUNT 9.1 K/uL (4.8-10.8)
[2018-02-08 06:37] LABS: ALB/GLOB RATIO 0.8 (1.0-2.1); ALBUMIN 3.5 g/dL (3.5-5.0); ALT/SGPT 17 U/L (21-72); BLOOD UREA NITROGEN 24 mg/dl (9-20)
[2018-02-08 06:41] LABS: GFR NON-AFRICAN AMERICAN > 60
[2018-02-08 06:42] LABS: AST/SGOT 21 U/L (17-59)
--- NOTE | 2018-02-08 08:00 | PN ---
DATE: 02/08/2018 SUBJECTIVE: The patient is seen and examined. Interim events noted. Consults noted and appreciated. Psychiatric followup and intervention noted and appreciated. The patient remains in geropsych unit. . Denies any specific complaints. No specific issue reported by nursing staff. PHYSICAL EXAMINATION: GENERAL: The patient is in no acute distress. VITAL SIGNS: Stable. Physical exam is essentially unchanged. DIAGNOSTIC DATA: Available diagnostic data reviewed. ASSESSMENT AND PLAN: Overall, the patient's general medical condition is stable. Plan as ordered. Agustin Alvarez MD
--- NOTE | 2018-02-08 08:09 | PCM.PYCHPN ---
Psychiatric Progress Note - Psychiatric Progress Note Patient seen today, length of contact: Pt evaluated, case discussed w/ team, chart reviewed Patient Chief Complaint: Inability to care for self Problems Identified/Issues Discussed: No new events. Pt reports that his mood is stable. He denies acute AH/VH/paranoia/delusions. Guardianship process continued. Medication Change: No Medical Record Reviewed: Yes Consults ordered or reviewed: Medicine consult Mental Status Examination - Cognitive Function Orientation: Person, Place, Situation, Time Memory: Impaired Attention: Poor Concentration: Poor Association: Loose Fund of Knowledge: Poor Decription of patient's judgement and insights: Poor I/J - Mood Mood: Neutral - Affect Affect: Broad - Speech Speech: Appropriate - Formal Thought Process Formal Thought Process: Loosening of associations Psychotic Thoughts and Behaviors: Denies AH/VH/paranoia/delusions - Suicidal Ideation Suicidal Ideation: No - Homicidal Ideation Homicidal Ideation: No Goal/Treatment Plan - Goal/Treatment Plan Need for Continued Stay: Severe functional impairment Progress Toward Problem(s) and Goals/Treatment Plan: Schizophrenia, Dementia -Continue Risperdal 2 mg PO Q12 -Medical evaluation -Individual and group therapy -Disposition planning- Court date for guardianship 02/21/18 Estimated Date of D/C: 03/08/18
[2018-02-08] MEDS: Pantoprazole 40 mg EC Tab PO SCH (08:24)
--- NOTE | 2018-02-08 08:50 | PN ---
DATE: 02/07/2018 SUBJECTIVE: The patient seen and examined. The patient remains in geropsych unit. Denies any specific complaint. No specific issue reported by nursing staff. PHYSICAL EXAMINATION: GENERAL: The patient is in no acute distress. VITAL SIGNS: Stable. Physical exam is essentially unchanged. DIAGNOSTIC DATA: Available diagnostic data reviewed. Accu-Chek . ASSESSMENT AND PLAN: Overall, the patient is medically stable. Plan as ordered. Agustin Alvarez MD
[2018-02-08] MEDS: Insulin Detemir 100 Units/ml Inj SC SCH (21:08)
[2018-02-09] MEDS: Levothyroxine 25 MCG TAB PO SCH (06:29)
[2018-02-09] MEDS: Pantoprazole 40 mg EC Tab PO SCH (08:44)
--- NOTE | 2018-02-09 11:59 | PN ---
DATE: 02/09/2018 SUBJECTIVE: The patient seen and examined. Interim events noted. Psychiatric followup noted and appreciated. The patient's blood test reviewed. The patient remains in Geropsych Unit. Feels okay. Denies any specific complaint. No chest pain or shortness of breath. PHYSICAL EXAMINATION: GENERAL: The patient is in no acute distress. VITAL SIGNS: Stable. HEART EXAM: S1, S2 normal and regular. LUNGS: Good bilateral air exchange. ABDOMEN: Soft and nontender. EXTREMITIES: No edema. No calf swelling. No tenderness. No acute ischemia. CENTRAL NERVOUS SYSTEM EXAM: Essentially unchanged. DIAGNOSTIC DATA: Available diagnostic data reviewed. Blood test reviewed. TSH level today remains elevated. ASSESSMENT AND PLAN: Plan as ordered. Case and plan discussed with the patient. Agustin Alvarez MD
--- NOTE | 2018-02-09 13:27 | PCM.PYCHPN ---
Psychiatric Progress Note - Psychiatric Progress Note Patient seen today, length of contact: Pt evaluated, case discussed w/ team, chart reviewed Patient Chief Complaint: dont know just waiting for placement to live. staff reports pt adherent with treatment requires total care and support Problems Identified/Issues Discussed: alteration in cognition alteration in self care Medical Problems: per chart Diagnostic Results: per psychiatry per medicine per medical social worker per recreational therapy DSM 5 Symptoms Update: alteration in cognition and self care Medication Change: No Medical Record Reviewed: Yes Consults ordered or reviewed: impaired Mental Status Examination - Cognitive Function Orientation: Person, Place, Situation, Time Memory: Impaired Attention: Poor Concentration: Poor Association: Loose Fund of Knowledge: Poor Decription of patient's judgement and insights: impaired - Mood Mood: Neutral - Affect Affect: Broad - Speech Speech: Appropriate - Formal Thought Process Formal Thought Process: Loosening of associations - Suicidal Ideation Suicidal Ideation: No - Homicidal Ideation Homicidal Ideation: No Goal/Treatment Plan - Goal/Treatment Plan Need for Continued Stay: Severe functional impairment Progress Toward Problem(s) and Goals/Treatment Plan: inpt adm requires total care-pending placement adjust meds per status discharge planning in progress pending placement total baseline cognitive status requires total care Estimated Date of D/C: 03/08/18 - Smoking Cessation Smoking Cessation Initiated: No Reason for not providing: deferred
[2018-02-09] MEDS: Insulin Detemir 100 Units/ml Inj SC SCH (21:15)
[2018-02-10] MEDS: Levothyroxine 50 MCG TAB PO SCH (08:36)
[2018-02-10] MEDS: Pantoprazole 40 mg EC Tab PO SCH (08:36)
--- NOTE | 2018-02-10 11:14 | PN ---
DATE: 02/10/2018 SUBJECTIVE: The patient seen and examined. Interim events noted. Psychiatric followup and intervention noted and appreciated. The patient remains in Geropsych Unit. Awake, responsive, denies any specific complaint. PHYSICAL EXAMINATION GENERAL: The patient is in no acute distress. VITAL SIGNS: Stable. Physical exam is essentially unchanged. DIAGNOSTIC DATA: Available diagnostic data reviewed. ASSESSMENT AND PLAN: Overall, the patient's general medical condition is stable. Accu-Checks are acceptable. Agustin Alvarez MD
--- NOTE | 2018-02-10 15:36 | PCM.PYCHPN ---
Psychiatric Progress Note - Psychiatric Progress Note Patient seen today, length of contact: Pt evaluated, case discussed w/ team, chart reviewed Patient Chief Complaint: seen about unit, requires total care, adherent with treatment, staff report pt is denying delusions dont know just waiting for placement to live. staff reports pt adherent with treatment requires total care and support Problems Identified/Issues Discussed: alteration in cognition alteration in self care Medical Problems: per chart Diagnostic Results: per psychiatry per medicine per social media marketing manager per recreational therapy DSM 5 Symptoms Update: alteration in mood Medication Change: No Medical Record Reviewed: Yes Consults ordered or reviewed: pt seen by hospitalist Mental Status Examination - Cognitive Function Orientation: Person, Place, Situation, Time Memory: Impaired Attention: Poor Concentration: Poor Association: Loose Fund of Knowledge: Poor Decription of patient's judgement and insights: impaired - Mood Mood: Neutral - Affect Affect: Broad - Speech Speech: Appropriate - Formal Thought Process Formal Thought Process: Loosening of associations - Suicidal Ideation Suicidal Ideation: No - Homicidal Ideation Homicidal Ideation: No Goal/Treatment Plan - Goal/Treatment Plan Need for Continued Stay: Severe functional impairment Progress Toward Problem(s) and Goals/Treatment Plan: inpt adm requires total care-pending placement adjust meds per status discharge planning in progress pending placement total baseline cognitive status requires total care Estimated Date of D/C: 03/08/18
[2018-02-10] MEDS: Insulin Detemir 100 Units/ml Inj SC SCH (21:14)
[2018-02-11] MEDS: Levothyroxine 50 MCG TAB PO SCH (05:53)
[2018-02-11] MEDS: Pantoprazole 40 mg EC Tab PO SCH (08:15)
--- NOTE | 2018-02-11 09:10 | PCM.PYCHPN ---
Psychiatric Progress Note - Psychiatric Progress Note Patient seen today, length of contact: Pt evaluated, case discussed w/ team, chart reviewed Patient Chief Complaint: Inability to care for self Problems Identified/Issues Discussed: No new events over the weekend. Pt reports that his mood is stable. He denies acute AH/VH/paranoia/delusions. Guardianship process continued. Medication Change: No Medical Record Reviewed: Yes Consults ordered or reviewed: Medicine consult Mental Status Examination - Cognitive Function Orientation: Person, Place, Situation, Time Memory: Impaired Attention: Poor Concentration: Poor Association: Loose Fund of Knowledge: Poor Decription of patient's judgement and insights: Poor I/J - Mood Mood: Neutral - Affect Affect: Broad - Speech Speech: Appropriate - Formal Thought Process Formal Thought Process: Loosening of associations Psychotic Thoughts and Behaviors: Denies AH/VH - Suicidal Ideation Suicidal Ideation: No - Homicidal Ideation Homicidal Ideation: No Goal/Treatment Plan - Goal/Treatment Plan Need for Continued Stay: Severe functional impairment Progress Toward Problem(s) and Goals/Treatment Plan: Schizophrenia, Dementia -Continue Risperdal 2 mg PO Q12 -Medical evaluation -Individual and group therapy -Disposition planning- Court date for guardianship 02/21/18 Estimated Date of D/C: 03/08/18
--- NOTE | 2018-02-11 11:19 | PN ---
DATE: 02/11/2018 SUBJECTIVE: The patient seen and examined. Interim events noted. The patient remains in Geropsych unit. Awake, responsive, ambulatory. Feels okay. Denies any chest pain or shortness of breath. The patient feels okay. Denies any specific complaint. No specific issue reported by nursing staff. PHYSICAL EXAMINATION: GENERAL: The patient is in no acute distress. VITAL SIGNS: Stable. Physical exam is essentially unchanged. DIAGNOSTIC DATA: Available diagnostic data reviewed. ASSESSMENT AND PLAN: Overall the patient is medically stable. Accu-Cheks are 209. Plan as ordered. Agustin Alvarez MD
[2018-02-11] MEDS: Insulin Detemir 100 Units/ml Inj SC SCH (21:03)
[2018-02-12] MEDS: Levothyroxine 50 MCG TAB PO SCH (06:17)
--- NOTE | 2018-02-12 08:19 | PCM.PYCHPN ---
Psychiatric Progress Note - Psychiatric Progress Note Patient seen today, length of contact: Pt evaluated, case discussed w/ team, chart reviewed Patient Chief Complaint: Inability to care for self Problems Identified/Issues Discussed: No new events. Pt reports that his mood is stable. He denies acute AH/VH/paranoia/delusions. Guardianship process continued. Medication Change: No Medical Record Reviewed: Yes Consults ordered or reviewed: Medicine consult Mental Status Examination - Cognitive Function Orientation: Person, Place, Situation, Time Memory: Impaired Attention: Poor Concentration: Poor Association: Loose Fund of Knowledge: Poor Decription of patient's judgement and insights: Poor I/J - Mood Mood: Neutral - Affect Affect: Broad - Speech Speech: Appropriate - Formal Thought Process Formal Thought Process: Loosening of associations Psychotic Thoughts and Behaviors: Denies AH/VH - Suicidal Ideation Suicidal Ideation: No - Homicidal Ideation Homicidal Ideation: No Goal/Treatment Plan - Goal/Treatment Plan Need for Continued Stay: Severe functional impairment Progress Toward Problem(s) and Goals/Treatment Plan: Schizophrenia, Dementia -Continue Risperdal 2 mg PO Q12 -Medical evaluation -Individual and group therapy -Disposition planning- Court date for guardianship 02/21/18 Estimated Date of D/C: 03/08/18
[2018-02-12] MEDS: Pantoprazole 40 mg EC Tab PO SCH (08:24)
--- NOTE | 2018-02-12 08:51 | PN ---
DATE: 02/11/2018 SUBJECTIVE: The patient seen and examined. Interim events noted. Consults noted and appreciated. Case discussed with dress cap maker. The patient remains in intensive care unit. The patient feels okay. Pain is controlled. No new complaint. No chest pain. No shortness of breath. PHYSICAL EXAMINATION: GENERAL: The patient is in no acute distress. VITAL SIGNS: Stable. Blood pressure is 90, but no sign of organ hypoperfusion. HEART EXAM: S1, S2 normal and regular. LUNGS: Good bilateral air exchange. ABDOMEN: Soft and nontender. 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 No sign of surrounding cellulitis. EXTREMITIES: No edema. No calf swelling. No tenderness. No acute ischemia. CENTRAL NERVOUS EXAM: Essentially unchanged. ASSESSMENT AND PLAN: Overall the patient is getting better. Plan as ordered. Agustin Alvarez MD
--- NOTE | 2018-02-12 08:56 | PN ---
DATE: 02/12/2018 SUBJECTIVE: The patient seen and examined. Interim events noted. Psychiatric followup and interventions noted and appreciated. The patient remains in geropsych unit, awake, responsive. Feels okay. Denies any specific complaint. No specific issue reported by nursing staff. ____. PHYSICAL EXAMINATION VITAL SIGNS: Stable. Physical exam is essentially unchanged. DIAGNOSTIC DATA: Available diagnostic data reviewed. ASSESSMENT: Overall, the patient is medically stable. Awaiting for guardianship and discharge planning. PLAN: As ordered. Agustin Alvarez MD
[2018-02-12] MEDS: Insulin Detemir 100 Units/ml Inj SC SCH (21:06)
[2018-02-13] MEDS: Levothyroxine 50 MCG TAB PO SCH (05:42)
[2018-02-13] MEDS: Pantoprazole 40 mg EC Tab PO SCH (08:26)
--- NOTE | 2018-02-13 08:39 | PCM.PYCHPN ---
Psychiatric Progress Note - Psychiatric Progress Note Patient seen today, length of contact: Pt evaluated, case discussed w/ team, chart reviewed Patient Chief Complaint: Inability to care for self Problems Identified/Issues Discussed: No new events overnight. Pt reports that his mood is stable. He denies acute AH/VH/paranoia/delusions. Guardianship process continued. Medication Change: No Medical Record Reviewed: Yes Consults ordered or reviewed: Medicine consult Mental Status Examination - Cognitive Function Orientation: Person, Place, Situation, Time Memory: Impaired Attention: Poor Concentration: Poor Association: Loose Fund of Knowledge: Poor Decription of patient's judgement and insights: Poor I/J - Mood Mood: Neutral - Affect Affect: Broad - Speech Speech: Appropriate - Formal Thought Process Formal Thought Process: Loosening of associations Psychotic Thoughts and Behaviors: Denies AH/VH - Suicidal Ideation Suicidal Ideation: No - Homicidal Ideation Homicidal Ideation: No Goal/Treatment Plan - Goal/Treatment Plan Need for Continued Stay: Severe functional impairment Progress Toward Problem(s) and Goals/Treatment Plan: Schizophrenia, Dementia -Continue Risperdal 2 mg PO Q12 -Medical evaluation -Individual and group therapy -Disposition planning- Court date for guardianship 02/21/18 Estimated Date of D/C: 03/08/18
--- NOTE | 2018-02-13 10:50 | PN ---
DATE: 02/13/2018 SUBJECTIVE: The patient seen and examined. Interim events noted. Psychiatric followup noted and appreciated. The patient remains in Geropsych unit. Denies any specific complaint. No specific issue reported by nursing staff. PHYSICAL EXAMINATION: GENERAL: The patient is in no acute distress. VITAL SIGNS: Stable. Physical exam is essentially unchanged. DIAGNOSTIC DATA: Available diagnostic data reviewed. ASSESSMENT AND PLAN: Overall, the patient's general medical condition is stable. Plan as ordered. Agustin Alvarez MD
--- NOTE | 2018-02-13 13:24 | PCM.BM ---
Treatment Plan Problems - Problems identified on initial assessmt Altered Thought Process Date Initiated: 01/07/18 Time Initiated: 19:11 Assessment reference: NA Status: Active Treatment assets and liabiliti Patient Assests: adapts well, cooperative, negotiates basic needs Patient Liabilities: live alone, poor support system, imparied memory - Milieu Protocol Maintain good personal hygiene: daily Encourage regular showers, daily Remind patient to perform daily oral care, daily Assist patient to perform ADL's Conduct patient checks and document Observation sheet: Q15 minutes Maintain personal safety: every shift Educate patient to report safety concerns to staff, every shift Monitor environment for contraband/sharps Medication safety: Monitor for expected outcome, potential side effects: every shift, Assess barriers to learning: every shift, Assess readiness for medication education: every shift Milieu Narrative: Schizophrenia, Dementia -Continue Risperdal 2 mg PO Q12 -Medical evaluation -Individual and group therapy -Disposition planning- Court date for guardianship 02/21/18 Family Contact Family involvement: No known Family/SO - Outside Agency Kathia Anguiano Esq Care involvment: Information-sharing Agency contact number: [phone] - Goals for Treatment Patient goals for treatment: Pt to be encouraged to attend activity and clinical groups 3-5x per week to decrease symptoms of paranoia, delusions and employ reality testing. Pt to be encouraged to participate in group milieu to develop coping skills to reduce psychiatric hospitalizations and further decompensation. Coordinate discharge resources needs by providing referral for psychiatric treatment follow up in the community. Discharge/Continuing Care - Education Needs Education Needs: Patient Medication, Patient Diagnosis/Disease Process, Patient Coping Skills, Patient Placement options, Patient Community resources, Patient Activities of Daily Living, Patient Nutrition, Patient Uses of Medical Equipment, Patient Health Practices/Safety, Patient Personal Hygiene/Grooming, Patient Aftercare Safety Plan - Discharge Discharge Criteria: Tolerates medication w/o severe side effects, Free of agitation, Normal sleep pattern, Ability to care for self, Reduction of target symptoms Discharge to:: Home - Additional Comments 01/09/18 13:22 Pt seen and discussed in team meeting. Reason for return to [facility] reviewed and discussed. Pt reported feeling "alright." Pt reported that he was on the medical unit due to "blood problems." Pt expressed feeling gratitude for being able to return to [facility] and continue psychiatric treatment. Self Defense Instructor informed pt that guardianship was initiated and pending court hearing is for February 21, 2018. Pt verbalized understanding of same and reported that he has the paperwork in his room. Pt's medications reviewed and discussed. Pt in agreement to continue tx howard and prescribed medications. Self Defense Instructor will continue to follow case. - Treatment Team Participation Patient/Family/SO Statement: Schizophrenia, Dementia -Continue Risperdal 2 mg PO Q12 -Medical evaluation -Individual and group therapy -Disposition planning- Court date for guardianship 02/21/18 Discussed with Family/SO: No Was Patient/Family/SO present at Treatment Team Meeting: Yes Treatment Plan Review - Problem Altered Thought Process Date Initiated: 01/07/18 Time Initiated: 19:11 Progress toward outcomes: unchanged (Pt continues to display poor insight and judgment into his mental illness. Pt is intermittently forgetful and confused.) - Discharge / Continuing Care Discharge to:: Home, Assisted Behavioral Health Services: Residential treatment Health Needs: Follow up care/test, Medications/Rx, Educational (Pt seen in tx team for review on 02/13/18. Pt able to identify court date of 02/21/18. Pt continues to be tangential, disorganized, paranoid and delusional. Pt focused on recent weight loss and addtional of Glucerna was discussed. Pt began making paranoid statement regarding people using drugs and discussing his current vs old medication regimens.)
[2018-02-13] MEDS: Insulin Detemir 100 Units/ml Inj SC SCH (21:05)
[2018-02-14] MEDS: Levothyroxine 50 MCG TAB PO SCH (06:12)
[2018-02-14] MEDS: Pantoprazole 40 mg EC Tab PO SCH (08:45)
--- NOTE | 2018-02-14 11:10 | PN ---
DATE: 02/14/2018 SUBJECTIVE: The patient seen and examined. Interim events noted. Awake, responsive. Feels okay. Denies any specific complaint. No chest pain or shortness of breath. PHYSICAL EXAMINATION: GENERAL: The patient is in no acute distress. VITAL SIGNS: Stable. Physical exam is essentially unchanged. DIAGNOSTIC DATA: Available diagnostic data reviewed. Accu-Cheks . We will monitor. ASSESSMENT AND PLAN: Overall the patient is clinically stable. Plan as ordered. Agustin Alvarez MD
[2018-02-14] MEDS: Insulin Detemir 100 Units/ml Inj SC SCH (21:10)
[2018-02-15] MEDS: Levothyroxine 50 MCG TAB PO SCH (05:53)
[2018-02-15] MEDS: Pantoprazole 40 mg EC Tab PO SCH (08:19)
--- NOTE | 2018-02-15 11:37 | PN ---
DATE: 02/15/2018 SUBJECTIVE: The patient was seen and examined. Interim events noted. Psychiatric followup and intervention noted and appreciated. The patient remains in geropsych unit. Awake, responsive, ambulatory. Feels okay. Denies any specific complaint of chest pain. No shortness of breath. PHYSICAL EXAMINATION: GENERAL: This patient is in no acute distress. VITAL SIGNS: Stable. HEART: S1, S2 normal, regular. LUNGS: Good bilateral air exchange. ABDOMEN: Soft and nontender. EXTREMITIES: No edema. No calf swelling. No tenderness. No acute ischemia. MARKER SHIPMENTS: Essentially unchanged. DIAGNOSTIC DATA: Available diagnostic data reviewed. ASSESSMENT AND PLAN: Overall, the patient is medically stable. Plan as ordered. Agustin Alvarez MD
[2018-02-15] MEDS: Insulin Detemir 100 Units/ml Inj SC SCH (21:06)
[2018-02-16] MEDS: Levothyroxine 50 MCG TAB PO SCH (06:11)
[2018-02-16] MEDS: Pantoprazole 40 mg EC Tab PO SCH (08:38)
--- NOTE | 2018-02-16 12:08 | PN ---
DATE: 02/16/2018 SUBJECTIVE: The patient seen and examined. Interim events noted. Psychiatric followup and intervention noted and appreciated. Patient remains in geropsych unit. Patient is okay. Denies any specific complaints. Nursing staff reported, patient ____ gas. Patient denied any abdominal pain, nausea, vomiting, diarrhea or constipation. PHYSICAL EXAMINATION: GENERAL: The patient is in no acute distress. VITAL SIGNS: Stable. HEART: S1 and S2 normal and regular. LUNGS: Good bilateral air exchange. ABDOMEN: Soft. Nontender. No organomegaly. No fluid. Bowel sounds are present and normal. No sign of acute abdomen. No guarding. No rigidity. No rebound. EXTREMITIES: No edema. No calf swelling. No tenderness. No acute ischemia. PORTABLE MACHINE CUTTER: Exam is essentially unchanged. DIAGNOSTIC DATA: Available diagnostic data reviewed. ASSESSMENT AND PLAN: Overall patient is medically stable. Plan as ordered. Agustin Alvarez MD
--- NOTE | 2018-02-16 13:18 | PCM.PYCHPN ---
Psychiatric Progress Note - Psychiatric Progress Note Patient seen today, length of contact: Pt evaluated, case discussed w/ team, chart reviewed Patient Chief Complaint: I am ok Problems Identified/Issues Discussed: pt seen in day room, constricted affect, concrete thought process, partial eye contact, under productive speech, , no reported side effects of medications denied any current command hallucinations, denied S/H I DSM 5 Symptoms Update: major neurocognitive disorder Medication Change: No Medical Record Reviewed: Yes Mental Status Examination - Cognitive Function Orientation: Person, Place, Situation, Time Memory: Impaired Attention: Poor Concentration: Poor Association: Loose Fund of Knowledge: Poor - Mood Mood: Neutral - Affect Affect: Broad - Speech Speech: Appropriate - Formal Thought Process Formal Thought Process: Loosening of associations - Suicidal Ideation Suicidal Ideation: No - Homicidal Ideation Homicidal Ideation: No Goal/Treatment Plan - Goal/Treatment Plan Need for Continued Stay: Severe functional impairment Progress Toward Problem(s) and Goals/Treatment Plan: continue current management disposition planning group and supportive therapy Estimated Date of D/C: 03/08/18
[2018-02-16] MEDS: Insulin Detemir 100 Units/ml Inj SC SCH (21:07)
[2018-02-17] MEDS: Levothyroxine 50 MCG TAB PO SCH (06:14)
[2018-02-17] MEDS: Pantoprazole 40 mg EC Tab PO SCH (08:40)
--- NOTE | 2018-02-17 11:11 | PCM.PYCHPN ---
Psychiatric Progress Note - Psychiatric Progress Note Patient seen today, length of contact: Pt evaluated, case discussed w/ team, chart reviewed Patient Chief Complaint: I am good today Problems Identified/Issues Discussed: pt seen in day room,reported mood is fine, constricted affect, partial eye contact, under productive speech, , no reported side effects of medications denied any current command hallucinations, denied S/H I DSM 5 Symptoms Update: major neurocognitive disorder Medication Change: No Medical Record Reviewed: Yes Mental Status Examination - Cognitive Function Orientation: Person, Place, Situation, Time Memory: Impaired Attention: Poor Concentration: Poor Association: Loose Fund of Knowledge: Poor - Mood Mood: Neutral - Affect Affect: Broad - Speech Speech: Appropriate - Formal Thought Process Formal Thought Process: Loosening of associations - Suicidal Ideation Suicidal Ideation: No - Homicidal Ideation Homicidal Ideation: No Goal/Treatment Plan - Goal/Treatment Plan Need for Continued Stay: Severe functional impairment Progress Toward Problem(s) and Goals/Treatment Plan: continue current management disposition planning group and supportive therapy Estimated Date of D/C: 03/08/18
[2018-02-17] MEDS: Insulin Detemir 100 Units/ml Inj SC SCH (21:05)
[2018-02-18] MEDS: Levothyroxine 50 MCG TAB PO SCH (06:06)
[2018-02-18] MEDS: Pantoprazole 40 mg EC Tab PO SCH (08:20)
--- NOTE | 2018-02-18 08:27 | PCM.PYCHPN ---
Psychiatric Progress Note - Psychiatric Progress Note Patient seen today, length of contact: Pt evaluated, case discussed w/ team, chart reviewed Patient Chief Complaint: Inability to care for self Problems Identified/Issues Discussed: No new events over the weekend. Pt reports that his mood is stable. He denies acute AH/VH/paranoia/delusions. Guardianship process continued. Medication Change: No Medical Record Reviewed: Yes Consults ordered or reviewed: Medicine consult Mental Status Examination - Cognitive Function Orientation: Person, Place, Situation, Time Memory: Impaired Attention: Poor Concentration: Poor Association: Loose Fund of Knowledge: Poor Decription of patient's judgement and insights: Chronic poor I/J - Mood Mood: Neutral - Affect Affect: Broad - Speech Speech: Appropriate - Formal Thought Process Formal Thought Process: Loosening of associations - Suicidal Ideation Suicidal Ideation: No - Homicidal Ideation Homicidal Ideation: No Goal/Treatment Plan - Goal/Treatment Plan Need for Continued Stay: Severe functional impairment Progress Toward Problem(s) and Goals/Treatment Plan: Schizophrenia, Dementia -Continue Risperdal 2 mg PO Q12 -Medical evaluation -Individual and group therapy -Disposition planning- Court date for guardianship 02/21/18 Estimated Date of D/C: 03/08/18
--- NOTE | 2018-02-18 09:08 | PN ---
DATE: 02/17/2018 SUBJECTIVE: The patient seen and examined. Interim events noted. Psychiatric followup and intervention noted and appreciated. The patient remains in Geropsych unit. Feels okay. No specific complaint. No specific issue reported by nursing staff. PHYSICAL EXAMINATION: GENERAL: The patient is in no acute distress. VITAL SIGNS: Stable. Physical exam is essentially unchanged. DIAGNOSTIC DATA: Available diagnostic data reviewed. ASSESSMENT AND PLAN: The patient's general medical condition is stable. Plan as ordered. Agustin Alvarez MD
--- NOTE | 2018-02-18 11:07 | PN ---
DATE: 02/18/2018 SUBJECTIVE: The patient seen and examined. Interim events noted. The patient remains in geropsych unit. The patient feels okay. Denies any specific complaint. No specific issue reported by nursing staff. PHYSICAL EXAMINATION: GENERAL: The patient is in no acute distress. VITAL SIGNS: Stable. Physical exam is essentially unchanged. DIAGNOSTIC DATA: Available diagnostic data reviewed. Accu-Cheks are 350. . ASSESSMENT AND PLAN: Overall, the patient is medically stable. Plan as ordered. Agustin Alvarez MD
[2018-02-18] MEDS: Insulin Detemir 100 Units/ml Inj SC SCH (21:05)
[2018-02-19] MEDS: Levothyroxine 50 MCG TAB PO SCH (06:03)
--- NOTE | 2018-02-19 07:59 | PCM.PYCHPN ---
Psychiatric Progress Note - Psychiatric Progress Note Patient seen today, length of contact: Pt evaluated, case discussed w/ team, chart reviewed Patient Chief Complaint: Inability to care for self Problems Identified/Issues Discussed: No new events. Pt reports that his mood is stable. He denies acute AH/VH/paranoia/delusions. Guardianship process continued. Medication Change: No Medical Record Reviewed: Yes Consults ordered or reviewed: Medicine consult Mental Status Examination - Cognitive Function Orientation: Person, Place, Situation, Time Memory: Impaired Attention: Poor Concentration: Poor Association: Loose Fund of Knowledge: Poor Decription of patient's judgement and insights: Chronic poor I/J - Mood Mood: Neutral - Affect Affect: Broad - Speech Speech: Appropriate - Formal Thought Process Formal Thought Process: Loosening of associations Psychotic Thoughts and Behaviors: Denies AH/VH/paranoia - Suicidal Ideation Suicidal Ideation: No - Homicidal Ideation Homicidal Ideation: No Goal/Treatment Plan - Goal/Treatment Plan Need for Continued Stay: Severe functional impairment Progress Toward Problem(s) and Goals/Treatment Plan: Schizophrenia, Dementia -Continue Risperdal 2 mg PO Q12 -Medical evaluation -Individual and group therapy -Disposition planning- Court date for guardianship 02/21/18 Estimated Date of D/C: 03/08/18
[2018-02-19] MEDS: Pantoprazole 40 mg EC Tab PO SCH (08:12)
--- NOTE | 2018-02-19 12:46 | PN ---
DATE: 02/19/2018 SUBJECTIVE: The patient seen and examined. Interim events noted. The patient remains in geropsych unit. Denies any suprapubic pain. No associated issue reported by nursing staff. PHYSICAL EXAMINATION: GENERAL: The patient is in no acute distress. VITAL SIGNS: Stable. Physical exam is essentially unchanged. DIAGNOSTIC DATA: Available diagnostic data reviewed. ASSESSMENT AND PLAN: Overall the patient's general medical condition is stable. Plan as ordered. Agustin Alvarez MD
[2018-02-19] MEDS: Insulin Detemir 100 Units/ml Inj SC SCH (21:02)
[2018-02-20] MEDS: Levothyroxine 50 MCG TAB PO SCH (05:55)
[2018-02-20 06:56] LABS: HEMOGLOBIN 12.8 g/dL (12.0-18.0); MEAN CELL VOLUME 88.8 fl (80.0-94.0); MEAN CORPUSCULAR HEMOGLOBIN 28.8 pg (27.0-31.0); MEAN CORPUSCULAR HGB CONC 32.5 g/dL (33.0-37.0); RBC 4.44 Mil/uL (4.40-5.90); WHITE BLOOD COUNT 8.8 K/uL (4.8-10.8)
[2018-02-20 07:04] LABS: ALB/GLOB RATIO 0.9 (1.0-2.1); ALBUMIN 3.4 g/dL (3.5-5.0); ALT/SGPT 21 U/L (21-72); AST/SGOT 23 U/L (17-59); BLOOD UREA NITROGEN 26 mg/dl (9-20); CALCIUM 8.7 mg/dL (8.4-10.2); GFR NON-AFRICAN AMERICAN > 60
[2018-02-20] MEDS: Pantoprazole 40 mg EC Tab PO SCH (08:20)
--- NOTE | 2018-02-20 09:31 | PCM.PYCHPN ---
Psychiatric Progress Note - Psychiatric Progress Note Patient seen today, length of contact: Pt evaluated, case discussed w/ team, chart reviewed Patient Chief Complaint: Inability to care for self Problems Identified/Issues Discussed: No new events overnight. Pt reports that his mood is stable. He denies acute AH/VH/paranoia/delusions. Guardianship process continued. Medication Change: No Medical Record Reviewed: Yes Consults ordered or reviewed: Medicine consult Mental Status Examination - Cognitive Function Orientation: Person, Place, Situation, Time Memory: Impaired Attention: Poor Concentration: Poor Association: Loose Fund of Knowledge: Poor Decription of patient's judgement and insights: Chronic poor I/J - Mood Mood: Neutral - Affect Affect: Broad - Speech Speech: Appropriate - Formal Thought Process Formal Thought Process: Loosening of associations Psychotic Thoughts and Behaviors: Denies AH/VH/paranoia - Suicidal Ideation Suicidal Ideation: No - Homicidal Ideation Homicidal Ideation: No Goal/Treatment Plan - Goal/Treatment Plan Need for Continued Stay: Severe functional impairment Progress Toward Problem(s) and Goals/Treatment Plan: Schizophrenia, Dementia -Continue Risperdal 2 mg PO Q12 -Medical evaluation -Individual and group therapy -Disposition planning- Court date for guardianship 02/21/18 Estimated Date of D/C: 03/08/18
--- NOTE | 2018-02-20 15:51 | PCM.BM ---
Treatment Plan Problems - Problems identified on initial assessmt Altered Thought Process Date Initiated: 01/07/18 Time Initiated: 19:11 Assessment reference: NA Status: Active Treatment assets and liabiliti Patient Assests: adapts well, cooperative, negotiates basic needs Patient Liabilities: live alone, poor support system, imparied memory - Milieu Protocol Maintain good personal hygiene: daily Encourage regular showers, daily Remind patient to perform daily oral care, daily Assist patient to perform ADL's Conduct patient checks and document Observation sheet: Q15 minutes Maintain personal safety: every shift Educate patient to report safety concerns to staff, every shift Monitor environment for contraband/sharps Medication safety: Monitor for expected outcome, potential side effects: every shift, Assess barriers to learning: every shift, Assess readiness for medication education: every shift Milieu Narrative: Schizophrenia, Dementia -Continue Risperdal 2 mg PO Q12 -Medical evaluation -Individual and group therapy -Disposition planning- Court date for guardianship 02/21/18 Family Contact Family involvement: No known Family/SO - Outside Agency Kathia Anguiano Esq Care involvment: Information-sharing Agency contact number: [phone] - Goals for Treatment Patient goals for treatment: Pt to be encouraged to attend activity and clinical groups 3-5x per week to decrease symptoms of paranoia, delusions and employ reality testing. Pt to be encouraged to participate in group milieu to develop coping skills to reduce psychiatric hospitalizations and further decompensation. Coordinate discharge resources needs by providing referral for psychiatric treatment follow up in the community. Discharge/Continuing Care - Education Needs Education Needs: Patient Medication, Patient Diagnosis/Disease Process, Patient Coping Skills, Patient Placement options, Patient Community resources, Patient Activities of Daily Living, Patient Nutrition, Patient Uses of Medical Equipment, Patient Health Practices/Safety, Patient Personal Hygiene/Grooming, Patient Aftercare Safety Plan - Discharge Discharge Criteria: Tolerates medication w/o severe side effects, Free of agitation, Normal sleep pattern, Ability to care for self, Reduction of target symptoms Discharge to:: Home, Correction - Additional Comments 01/09/18 13:22 Pt seen and discussed in team meeting. Reason for return to [facility] reviewed and discussed. Pt reported feeling "alright." Pt reported that he was on the medical unit due to "blood problems." Pt expressed feeling gratitude for being able to return to [facility] and continue psychiatric treatment. Chute Puller informed pt that guardianship was initiated and pending court hearing is for February 21, 2018. Pt verbalized understanding of same and reported that he has the paperwork in his room. Pt's medications reviewed and discussed. Pt in agreement to continue tx howard and prescribed medications. Chute Puller will continue to follow case. - Treatment Team Participation Patient/Family/SO Statement: Schizophrenia, Dementia -Continue Risperdal 2 mg PO Q12 -Medical evaluation -Individual and group therapy -Disposition planning- Court date for guardianship 02/21/18 Discussed with Family/SO: No Was Patient/Family/SO present at Treatment Team Meeting: Yes Treatment Plan Review Patient participation: Yes Family/SO/Caregiver participation: No Additional Comments: Pt seen and discussed in team meeting. Pt's progress and bx on the unit reviewed and discussed. Recently, pt is increasingly agitated, irritable and observed to be screaming and yelling in his room. During tx team meeting pt appears to be annoyed and angry. Pt reported that he was feeling "alright." When asked why he was upset and/or angry pt stated "because of bad service here." Pt also expressed feeling frustrated because he wants to return to his home before the holidays. Pt reported he is aware of the court hearing schedule for tomorrow, February 21. Pt also reported that he is angry with the lawyers because he promised to come back to talk to him and he has not. Pt was irritable during tx meeting and did not allow for headline writer to explain to him what will happen after tomorrow's court hearing. Pt politely requested to be dismissed from the meeting and return to his room. - Problem Altered Thought Process Date Initiated: 01/07/18 Time Initiated: 19:11 Progress toward outcomes: unchanged (Pt continues to display poor insight and judgment into his mental illness. Pt is intermittently forgetful and confused.) - Discharge / Continuing Care Discharge to:: Home Behavioral Health Services: Outpatient therapy, Home health care, Adult day care Health Needs: Follow up care/test, Doctor appointments, Nutritional, Medications/Rx, Educational, Recreational/Social
[2018-02-20] MEDS: Insulin Detemir 100 Units/ml Inj SC SCH (21:10)
[2018-02-21] MEDS: Levothyroxine 50 MCG TAB PO SCH (06:01)
--- NOTE | 2018-02-21 08:07 | PN ---
DATE: 02/21/2018 MEDICAL FOLLOWUP PROGRESS NOTE SUBJECTIVE: The patient is seen and examined. Interim events noted. Psychiatric followup and intervention noted and appreciated. Social work note . The patient is for guardianship hearing today. The patient feels okay. Denies any specific complaint of chest pain or shortness of breath. The patient remains in geropsych unit. PHYSICAL EXAMINATION: GENERAL: The patient is in no acute distress. VITAL SIGNS: Stable. HEART: S1, S2, normal and regular. LUNGS: Good bilateral air exchange. ABDOMEN: Soft and nontender. EXTREMITIES: No edema. No calf swelling. No tenderness. No acute ischemia. CENTRAL NERVOUS SYSTEM: Exam is essentially unchanged. DIAGNOSTIC DATA: Available diagnostic data reviewed. ASSESSMENT AND PLAN: Overall, the patient is medically stable. Plan as ordered. Agustin Alvarez MD
[2018-02-21] MEDS: Pantoprazole 40 mg EC Tab PO SCH (08:27)
[2018-02-21] MEDS: Insulin Detemir 100 Units/ml Inj SC SCH (21:04)
[2018-02-22] MEDS: Levothyroxine 50 MCG TAB PO SCH (06:39)
--- NOTE | 2018-02-22 07:58 | PCM.PYCHPN ---
Psychiatric Progress Note - Psychiatric Progress Note Patient seen today, length of contact: Pt evaluated, case discussed w/ team, chart reviewed Patient Chief Complaint: Inability to care for self Problems Identified/Issues Discussed: No new events overnight. Pt reports that his mood is stable. He denies acute AH/VH/paranoia/delusions. Guardianship process continued. Medication Change: No Medical Record Reviewed: Yes Mental Status Examination - Cognitive Function Orientation: Person, Place, Situation, Time Memory: Impaired Attention: Poor Concentration: Poor Association: Loose Fund of Knowledge: Poor Decription of patient's judgement and insights: Chronic poor I/J - Mood Mood: Neutral - Affect Affect: Broad - Speech Speech: Appropriate - Formal Thought Process Formal Thought Process: Loosening of associations Psychotic Thoughts and Behaviors: Denies AH/VH/paranoia - Suicidal Ideation Suicidal Ideation: No - Homicidal Ideation Homicidal Ideation: No Goal/Treatment Plan - Goal/Treatment Plan Need for Continued Stay: Severe functional impairment Progress Toward Problem(s) and Goals/Treatment Plan: Schizophrenia, Dementia -Continue Risperdal 2 mg PO Q12 -Continue Aricept 5 mg PO HS -Medical evaluation -Individual and group therapy -Disposition planning- pending guardian appointment Estimated Date of D/C: 03/08/18
[2018-02-22] MEDS: Pantoprazole 40 mg EC Tab PO SCH (09:05)
--- NOTE | 2018-02-22 12:06 | PN ---
DATE: 02/22/2018 SUBJECTIVE: Patient was seen and examined. Interim events noted. Patient in geropsych unit. Patient had court hearing yesterday, it was pending. Patient feels okay. Denies any specific complaint. No specific issue reported to nursing staff. PHYSICAL EXAMINATION: GENERAL: The patient is in no acute distress. VITAL SIGNS: Stable. Physical examination is essentially unchanged. DIAGNOSTIC DATA: Available diagnostic data reviewed. PLAN: Overall patient's general condition is stable. Plan as ordered. Agustin Alvarez MD
[2018-02-22] MEDS: Insulin Detemir 100 Units/ml Inj SC SCH (21:17)
[2018-02-23] MEDS: Levothyroxine 50 MCG TAB PO SCH (06:25)
[2018-02-23] MEDS: Pantoprazole 40 mg EC Tab PO SCH (08:13)
--- NOTE | 2018-02-23 09:10 | PCM.PYCHPN ---
Psychiatric Progress Note - Psychiatric Progress Note Patient seen today, length of contact: Pt evaluated, case discussed w/ team, chart reviewed Patient Chief Complaint: pt is offering no new complaints and has been in stable mood and no mood symptoms was noted.pt has been tolerating meds .no side effects to meds Medication Change: No Medical Record Reviewed: Yes Mental Status Examination - Cognitive Function Orientation: Person, Place, Situation, Time Memory: Impaired Attention: Poor Concentration: Poor Association: Loose Fund of Knowledge: Poor - Mood Mood: Neutral - Affect Affect: Broad - Speech Speech: Appropriate - Formal Thought Process Formal Thought Process: Loosening of associations - Suicidal Ideation Suicidal Ideation: No - Homicidal Ideation Homicidal Ideation: No Goal/Treatment Plan - Goal/Treatment Plan Need for Continued Stay: Severe functional impairment Progress Toward Problem(s) and Goals/Treatment Plan: pt is waiting for placement through guardian ship. Estimated Date of D/C: 03/08/18
--- NOTE | 2018-02-23 11:07 | PN ---
DATE: 02/23/2018 SUBJECTIVE: Patient seen and examined. Interim events noted. Follow up intervention noted and appreciated. Patient remains in regular geropsych unit. Feels okay. Denies any specific complaints. PHYSICAL EXAMINATION: GENERAL: Patient is in no acute distress. VITAL SIGNS: Stable. Physical exam is essentially unchanged. DIAGNOSTIC DATA: Available diagnostic data reviewed. ASSESSMENT AND PLAN: Overall the patient's general medical condition is stable. Plan as ordered. Agustin Alvarez MD
[2018-02-23] MEDS: Insulin Detemir 100 Units/ml Inj SC SCH (21:04)
[2018-02-24] MEDS: Levothyroxine 50 MCG TAB PO SCH (06:12)
[2018-02-24] MEDS: Pantoprazole 40 mg EC Tab PO SCH (08:24)
--- NOTE | 2018-02-24 10:24 | PN ---
DATE: 02/24/2018 SUBJECTIVE: The patient seen and examined. Interim events noted. The patient remains in geropsych unit. The patient feels okay. Denies any specific complaints. PHYSICAL EXAMINATION: GENERAL: The patient is in no acute distress. VITAL SIGNS: Stable. Physical exam is essentially unchanged. DIAGNOSTIC DATA: Available diagnostic data reviewed. ASSESSMENT AND PLAN: Overall, the patient's general medical condition is stable. Plan as ordered. Agustin Alvarez MD
--- NOTE | 2018-02-24 14:17 | PCM.PYCHPN ---
Psychiatric Progress Note - Psychiatric Progress Note Patient seen today, length of contact: Pt evaluated, case discussed w/ team, chart reviewed Patient Chief Complaint: pt has been in stable mood and no mood symptoms was noted.pt has been tolerating meds .no side effects to meds Medication Change: No Medical Record Reviewed: Yes Mental Status Examination - Cognitive Function Orientation: Person, Place, Situation, Time Memory: Impaired Attention: Poor Concentration: Poor Association: Loose Fund of Knowledge: Poor - Mood Mood: Neutral - Affect Affect: Broad - Speech Speech: Appropriate - Formal Thought Process Formal Thought Process: Loosening of associations - Suicidal Ideation Suicidal Ideation: No - Homicidal Ideation Homicidal Ideation: No Goal/Treatment Plan - Goal/Treatment Plan Need for Continued Stay: Severe functional impairment Progress Toward Problem(s) and Goals/Treatment Plan: pt is waiting for placement through guardian ship. Estimated Date of D/C: 03/08/18
[2018-02-24] MEDS: Insulin Detemir 100 Units/ml Inj SC SCH (21:13)
[2018-02-25] MEDS: Levothyroxine 50 MCG TAB PO SCH (05:29)
--- NOTE | 2018-02-25 08:18 | PCM.PYCHPN ---
Psychiatric Progress Note - Psychiatric Progress Note Patient seen today, length of contact: Pt evaluated, case discussed w/ team, chart reviewed Patient Chief Complaint: Inability to care for self Problems Identified/Issues Discussed: No new events over the weekend. Pt reports that his mood is stable. He denies acute AH/VH/paranoia/delusions. Guardianship process continued. Medication Change: No Medical Record Reviewed: Yes Consults ordered or reviewed: Medicine consult Mental Status Examination - Cognitive Function Orientation: Person, Place, Situation, Time Memory: Impaired Attention: Poor Concentration: Poor Association: Loose Fund of Knowledge: Poor Decription of patient's judgement and insights: Chronic poor I/J - Mood Mood: Neutral - Affect Affect: Broad - Speech Speech: Appropriate - Formal Thought Process Formal Thought Process: Loosening of associations Psychotic Thoughts and Behaviors: Denies AH/VH - Suicidal Ideation Suicidal Ideation: No - Homicidal Ideation Homicidal Ideation: No Goal/Treatment Plan - Goal/Treatment Plan Need for Continued Stay: Severe functional impairment Progress Toward Problem(s) and Goals/Treatment Plan: Schizophrenia, Dementia -Continue Risperdal 2 mg PO Q12 -Continue Aricept 5 mg PO HS -Medical evaluation -Individual and group therapy -Disposition planning- pending guardian appointment Estimated Date of D/C: 03/08/18
[2018-02-25] MEDS: Pantoprazole 40 mg EC Tab PO SCH (08:34)
--- NOTE | 2018-02-25 11:24 | PN ---
DATE: 02/25/2018 SUBJECTIVE: The patient seen and examined. Interim events noted. Psychiatric followup and intervention noted and appreciated. The patient remains in geropsych unit. Awake, responsive, feels okay. Denies any specific complaint. No specific issue reported by nursing staff. PHYSICAL EXAMINATION: GENERAL: The patient is in no acute distress. VITAL SIGNS: Stable. HEART S1, S2 normal and regular. LUNGS: Good bilateral air exchange. ABDOMEN: Soft, nontender. EXTREMITIES: No edema, calf swelling. No tenderness. No acute ischemia. CENTRAL NERVOUS SYSTEM: Exam is essentially unchanged. DIAGNOSTIC DATA: Accu-Cheks are acceptable. Other diagnostic data which are available are reviewed. ASSESSMENT AND PLAN: Overall, the patient is medically stable. The patient is awaiting placement. Plan as ordered. Agustin Alvarez MD
[2018-02-25] MEDS: Insulin Detemir 100 Units/ml Inj SC SCH (21:05)
--- NOTE | 2018-02-26 08:06 | PCM.PYCHPN ---
Psychiatric Progress Note - Psychiatric Progress Note Patient seen today, length of contact: Pt evaluated, case discussed w/ team, chart reviewed Patient Chief Complaint: Inability to care for self Problems Identified/Issues Discussed: No new events overnight. Pt reports that his mood is stable. He denies acute AH/VH/paranoia/delusions. Guardianship process continued. Medication Change: No Medical Record Reviewed: Yes Consults ordered or reviewed: Medicine consult Mental Status Examination - Cognitive Function Orientation: Person, Place, Situation, Time Memory: Impaired Attention: Poor Concentration: Poor Association: Loose Fund of Knowledge: Poor Decription of patient's judgement and insights: Chronic poor I/J - Mood Mood: Neutral - Affect Affect: Broad - Speech Speech: Appropriate - Formal Thought Process Formal Thought Process: Loosening of associations Psychotic Thoughts and Behaviors: Denies AH/VH - Suicidal Ideation Suicidal Ideation: No - Homicidal Ideation Homicidal Ideation: No Goal/Treatment Plan - Goal/Treatment Plan Need for Continued Stay: Severe functional impairment Progress Toward Problem(s) and Goals/Treatment Plan: Schizophrenia, Dementia -Continue Risperdal 2 mg PO Q12 -Continue Aricept 5 mg PO HS -Medical evaluation -Individual and group therapy -Disposition planning- pending guardian appointment Estimated Date of D/C: 03/08/18
[2018-02-26] MEDS: Pantoprazole 40 mg EC Tab PO SCH (08:38)
--- NOTE | 2018-02-26 10:18 | CP.PCM.PN ---
<Kelsea Sims - Last Filed: 02/26/18 18:21> Subjective - Date & Time of Evaluation Date of Evaluation: 02/26/18 Time of Evaluation: 17:15 - Subjective Subjective: Pt seen today while in psychiatric unit. Was eating dinner, reported he was doing well. No specific complaints/concerns. Objective - Vital Signs/Intake and Output Vital Signs (last 24 hours): Temp Pulse Resp BP Pulse Ox 97.5 F L 93 H 19 133/65 02/26/18 06:00 02/26/18 06:00 02/26/18 06:00 02/26/18 06:00 - Medications Medications: Current Medications Acetaminophen (Tylenol 325mg Tab) 650 mg PO Q4 PRN PRN Reason: Pain, moderate (4-7) Aspirin (Aspirin Chewable) 81 mg PO DAILY [facility] Last Admin: 02/26/18 08:38 Dose: 81 mg Bismuth Subsalicylate (Pepto-Bismol) 524 mg PO Q4 PRN PRN Reason: Diarrhea Donepezil HCl (Aricept) 5 mg PO HS [facility] Last Admin: 02/25/18 21:05 Dose: 5 mg Glipizide (Glucotrol) 10 mg PO ACB [facility] Last Admin: 02/26/18 08:38 Dose: 10 mg Insulin Detemir (Levemir) 8 units SC HS [facility] Last Admin: 02/25/18 21:05 Dose: 8 units Levothyroxine Sodium (Synthroid) 50 mcg PO DAILY@0630 [facility] Lorazepam (Ativan) 0.5 mg PO Q6 PRN PRN Reason: Anxiety Magnesium Hydroxide (Milk Of Magnesia) 30 ml PO HS PRN PRN Reason: Constipation Pantoprazole Sodium (Protonix Ec Tab) 40 mg PO DAILY [facility] Last Admin: 02/26/18 08:38 Dose: 40 mg Risperidone (Risperdal Tab) 2 mg PO BID [facility] Last Admin: 02/26/18 08:38 Dose: 2 mg Sitagliptin Phosphate (Januvia) 100 mg PO DAILY [facility] Last Admin: 02/26/18 08:38 Dose: 100 mg Trazodone HCl (Desyrel) 50 mg PO HS PRN PRN Reason: Insomnia - Labs Labs: 02/20/18 05:45 02/20/18 05:45 - Constitutional Appears: No Acute Distress - Head Exam Head Exam: NORMAL INSPECTION - ENT Exam ENT Exam: Mucous Membranes Moist - Respiratory Exam Respiratory Exam: NORMAL BREATHING PATTERN - Extremities Exam Extremities Exam: Normal Inspection Assessment and Plan - Assessment and Plan (Free Text) Assessment: 72 year old male hx schizoaffective disorder, dementia and DM admitted to [facility] unit; pending guardianship process. Plan: Pt remains stable. Continue current primary management by psychiatric team Rest of the plan as ordered <Agustin Alvarez - Last Filed: 02/27/18 10:36> Objective - Vital Signs/Intake and Output Vital Signs (last 24 hours): Temp Pulse Resp BP Pulse Ox 97.3 F L 89 19 110/62 02/27/18 06:00 02/27/18 06:00 02/27/18 06:00 02/27/18 06:00 - Medications Medications: Current Medications Acetaminophen (Tylenol 325mg Tab) 650 mg PO Q4 PRN PRN Reason: Pain, moderate (4-7) Aspirin (Aspirin Chewable) 81 mg PO DAILY [facility] Last Admin: 02/27/18 08:13 Dose: 81 mg Bismuth Subsalicylate (Pepto-Bismol) 524 mg PO Q4 PRN PRN Reason: Diarrhea Donepezil HCl (Aricept) 5 mg PO HS [facility] Last Admin: 02/26/18 21:10 Dose: 5 mg Glipizide (Glucotrol) 10 mg PO ACB [facility] Last Admin: 02/27/18 08:13 Dose: 10 mg Insulin Detemir (Levemir) 8 units SC HS [facility] Last Admin: 02/26/18 21:10 Dose: 8 units Levothyroxine Sodium (Synthroid) 50 mcg PO DAILY@0630 [facility] Last Admin: 02/27/18 06:34 Dose: 50 mcg Lorazepam (Ativan) 0.5 mg PO Q6 PRN PRN Reason: Anxiety Magnesium Hydroxide (Milk Of Magnesia) 30 ml PO HS PRN PRN Reason: Constipation Pantoprazole Sodium (Protonix Ec Tab) 40 mg PO DAILY [facility] Last Admin: 02/27/18 08:13 Dose: 40 mg Risperidone (Risperdal Tab) 2 mg PO BID [facility] Last Admin: 02/27/18 08:13 Dose: 2 mg Sitagliptin Phosphate (Januvia) 100 mg PO DAILY [facility] Last Admin: 02/27/18 08:13 Dose: 100 mg Trazodone HCl (Desyrel) 50 mg PO HS PRN PRN Reason: Insomnia - Labs Labs: 02/20/18 05:45 02/20/18 05:45 Assessment and Plan - Assessment and Plan (Free Text) Assessment: Patient was personally seen and examined by me in rounds with residents. Available labs and diagnostic data reviewed. Case, Patient's condition and management plan discussed with residents in rounds. Agree with resident's progress note. Plan: As ordered.
[2018-02-26] MEDS: Insulin Detemir 100 Units/ml Inj SC SCH (21:10)
[2018-02-27] MEDS ORDERED: Levothyroxine 50 MCG TAB PO SCH (06:30)
[2018-02-27] MEDS: Levothyroxine 50 MCG TAB PO SCH (06:34)
--- NOTE | 2018-02-27 07:56 | PCM.PYCHPN ---
Psychiatric Progress Note - Psychiatric Progress Note Patient seen today, length of contact: Pt evaluated, case discussed w/ team, chart reviewed Patient Chief Complaint: Inability to care for self Problems Identified/Issues Discussed: Pt reports that his mood is stable. He denies acute AH/VH/paranoia/delusions. Guardianship process continued. Medication Change: No Medical Record Reviewed: Yes Consults ordered or reviewed: Medicine consult Mental Status Examination - Cognitive Function Orientation: Person, Place, Situation, Time Memory: Impaired Attention: Poor Concentration: Poor Association: Loose Fund of Knowledge: Poor Decription of patient's judgement and insights: Chronic poor I/J - Mood Mood: Neutral - Affect Affect: Broad - Speech Speech: Appropriate - Formal Thought Process Formal Thought Process: Loosening of associations Psychotic Thoughts and Behaviors: Denies AH/VH - Suicidal Ideation Suicidal Ideation: No - Homicidal Ideation Homicidal Ideation: No Goal/Treatment Plan - Goal/Treatment Plan Need for Continued Stay: Severe functional impairment Progress Toward Problem(s) and Goals/Treatment Plan: Schizophrenia, Dementia -Continue Risperdal 2 mg PO Q12 -Continue Aricept 5 mg PO HS -Medical evaluation -Individual and group therapy -Disposition planning- pending guardian appointment Estimated Date of D/C: 03/08/18
[2018-02-27] MEDS: Pantoprazole 40 mg EC Tab PO SCH (08:13)
--- NOTE | 2018-02-27 11:40 | PN ---
DATE: 02/27/2018 SUBJECTIVE: The patient seen and examined. Interim events noted. Psychiatric followup noted and appreciated. Case discussed with psychiatrist. The patient remains in geropsych unit. The patient is awake, responsive. Feels okay. Denies any specific complaint of chest pain or shortness of breath. PHYSICAL EXAMINATION: GENERAL: The patient is in no acute distress. VITAL SIGNS: Stable. Physical exam is essentially unchanged. DIAGNOSTIC DATA: Available diagnostic data reviewed. ASSESSMENT AND PLAN: Overall, the patient's general medical condition is stable. Plan as ordered. Agustin Alvarez MD
--- NOTE | 2018-02-27 15:41 | PCM.BM ---
Treatment Plan Problems - Problems identified on initial assessmt Altered Thought Process Date Initiated: 01/07/18 Time Initiated: 19:11 Assessment reference: NA Status: Active Treatment assets and liabiliti Patient Assests: adapts well, cooperative, negotiates basic needs Patient Liabilities: live alone, poor support system, imparied memory - Milieu Protocol Maintain good personal hygiene: daily Encourage regular showers, daily Remind patient to perform daily oral care, daily Assist patient to perform ADL's Conduct patient checks and document Observation sheet: Q15 minutes Maintain personal safety: every shift Educate patient to report safety concerns to staff, every shift Monitor environment for contraband/sharps Medication safety: Monitor for expected outcome, potential side effects: every shift, Assess barriers to learning: every shift, Assess readiness for medication education: every shift Milieu Narrative: Schizophrenia, Dementia -Continue Risperdal 2 mg PO Q12 -Continue Aricept 5 mg PO HS -Medical evaluation -Individual and group therapy -Disposition planning- pending guardian appointment Family Contact Family involvement: No known Family/SO - Outside Agency Kathia Anguiano Esq Care involvment: Information-sharing Agency contact number: [phone] - Goals for Treatment Patient goals for treatment: Pt to be encouraged to attend activity and clinical groups 3-5x per week to decrease symptoms of paranoia, delusions and employ reality testing. Pt to be encouraged to participate in group milieu to develop coping skills to reduce psychiatric hospitalizations and further decompensation. Coordinate discharge resources needs by providing referral for psychiatric treatment follow up in the community. Discharge/Continuing Care - Education Needs Education Needs: Patient Medication, Patient Diagnosis/Disease Process, Patient Coping Skills, Patient Placement options, Patient Community resources, Patient Activities of Daily Living, Patient Nutrition, Patient Uses of Medical Equipment, Patient Health Practices/Safety, Patient Personal Hygiene/Grooming, Patient Aftercare Safety Plan - Discharge Discharge Criteria: Tolerates medication w/o severe side effects, Free of agitation, Normal sleep pattern, Ability to care for self, Reduction of target symptoms Discharge to:: Home - Additional Comments 01/09/18 13:22 Pt seen and discussed in team meeting. Reason for return to [facility] reviewed and discussed. Pt reported feeling "alright." Pt reported that he was on the medical unit due to "blood problems." Pt expressed feeling gratitude for being able to return to [facility] and continue psychiatric treatment. Mica Patcher informed pt that guardianship was initiated and pending court hearing is for February 21, 2018. Pt verbalized understanding of same and reported that he has the paperwork in his room. Pt's medications reviewed and discussed. Pt in agreement to continue tx howard and prescribed medications. Mica Patcher will continue to follow case. - Treatment Team Participation Patient/Family/SO Statement: Schizophrenia, Dementia -Continue Risperdal 2 mg PO Q12 -Continue Aricept 5 mg PO HS -Medical evaluation -Individual and group therapy -Disposition planning- pending guardian appointment Discussed with Family/SO: No Was Patient/Family/SO present at Treatment Team Meeting: Yes Treatment Plan Review Patient participation: Yes Family/SO/Caregiver participation: No Additional Comments: Pt seen and discussed in team meeting. Pt's progress and bx on the unit reviewed and discussed. Recently, pt has been observed to be increasingly agitated, irritable and observed to be screaming and yelling in his room in the context that pt wants to return to his apartment. Pt has been requesting to be discharged prior to the holidays. SW has explained to pt on several occasions that the Final Judgment Order must be signed by Production Or Plant Engineer Oniel and once order is received [facility] will start to work on the case. Pt presents with poor understanding of the process. During team meeting, pt was focused on the garbage cans being removed from the rooms. Pt reported that it is "bad service" and is demanding that the garbage cans be replaced. Mica Patcher attempted to explain to pt that it is not just his bedroom that it is for everybody; however, pt stated "I be quite know. I have education." Pt's medications reviewed and discussed. Pt advised that an email was sent to Katty John Esq. earlier in te AM and pending response in regards to the signed and final judgment order. SW will continue to follow case. - Problem Altered Thought Process Date Initiated: 01/07/18 Time Initiated: 19:11 Progress toward outcomes: unchanged (Pt continues to display poor insight and judgment into his mental illness. Pt is intermittently forgetful and confused.) - Discharge / Continuing Care Discharge to:: Home Behavioral Health Services: Outpatient therapy, Home health care, Adult day care Health Needs: Follow up care/test, Doctor appointments, Nutritional, Medications/Rx, Educational, Recreational/Social
[2018-02-27] MEDS: Insulin Detemir 100 Units/ml Inj SC SCH (21:25)
[2018-02-28] MEDS: Levothyroxine 50 MCG TAB PO SCH (06:17)
--- NOTE | 2018-02-28 07:49 | PCM.PYCHPN ---
Psychiatric Progress Note - Psychiatric Progress Note Patient seen today, length of contact: Pt evaluated, case discussed w/ team, chart reviewed Patient Chief Complaint: Inability to care for self Problems Identified/Issues Discussed: No new events. Pt reports that his mood is stable. He denies acute AH/VH/paranoia/delusions. Guardianship process continued. Medication Change: No Medical Record Reviewed: Yes Consults ordered or reviewed: Medicine consult Mental Status Examination - Cognitive Function Orientation: Person, Place, Situation, Time Memory: Impaired Attention: Poor Concentration: Poor Association: Loose Fund of Knowledge: Poor Decription of patient's judgement and insights: Chronic poor I/J - Mood Mood: Neutral - Affect Affect: Broad - Speech Speech: Appropriate - Formal Thought Process Formal Thought Process: Loosening of associations Psychotic Thoughts and Behaviors: Denies AH/VH - Suicidal Ideation Suicidal Ideation: No - Homicidal Ideation Homicidal Ideation: No Goal/Treatment Plan - Goal/Treatment Plan Need for Continued Stay: Severe functional impairment Progress Toward Problem(s) and Goals/Treatment Plan: Schizophrenia, Dementia -Continue Risperdal 2 mg PO Q12 -Continue Aricept 5 mg PO HS -Medical evaluation -Individual and group therapy -Disposition planning- pending guardian appointment Estimated Date of D/C: 03/08/18
[2018-02-28] MEDS: Pantoprazole 40 mg EC Tab PO SCH (08:31)
--- NOTE | 2018-02-28 09:00 | PN ---
DATE: 02/28/2018 SUBJECTIVE: The patient is seen and examined. Interim events noted. Consults noted and appreciated. Psychiatric followup and intervention noted and appreciated. Patient remains in [facility]. Awake, responsive, ambulatory. Feels okay. Denies any specific complaint of chest pain or shortness of breath. PHYSICAL EXAMINATION: GENERAL: The patient is in no acute distress. VITAL SIGNS: Stable. Physical exam is essentially unchanged. DIAGNOSTIC DATA: Available diagnostic data reviewed. ASSESSMENT AND PLAN: Overall, the patient's general medical condition is stable. Plan as ordered. Agustin Alvarez MD
[2018-02-28] MEDS: Insulin Detemir 100 Units/ml Inj SC SCH (21:46)
[2018-03-01] MEDS: Levothyroxine 50 MCG TAB PO SCH (05:59)
[2018-03-01] MEDS: Pantoprazole 40 mg EC Tab PO SCH (08:25)
--- NOTE | 2018-03-01 10:10 | PN ---
DATE: 03/01/2018 SUBJECTIVE: The patient seen and examined. Interim events noted. Consults noted and appreciated. Psychiatric followup and intervention noted and appreciated. The patient remains in [facility] unit. Little upset today about the food. Denies any specific complaint. No chest pain. No shortness of breath. PHYSICAL EXAMINATION: GENERAL: The patient is in no acute distress. VITAL SIGNS: Stable. HEART: S1 and S2. Normal and regular. LUNGS: Good bilateral air exchange. ABDOMEN: Soft and nontender. EXTREMITIES: No edema. No calf swelling. No tenderness. No acute ischemia. CENTRAL NERVOUS SYSTEM: Essentially unchanged. DIAGNOSTIC DATA: Available diagnostic data reviewed. The patient . He has diabetes as he was on high-sugar food and high-fat food, which we tried to explain, but the patient is currently not in mood to proceed further. ASSESSMENT AND PLAN: Overall, the patient is medically stable. Plan as ordered. Agustin Alvarez MD
[2018-03-01] MEDS: Haloperidol Lactate 2 mg/ml Liquid PO PRN (11:05)
[2018-03-01] MEDS: Insulin Detemir 100 Units/ml Inj SC SCH (21:14)
[2018-03-02] MEDS: Levothyroxine 50 MCG TAB PO SCH (06:24)
[2018-03-02] MEDS: Pantoprazole 40 mg EC Tab PO SCH (08:35)
--- NOTE | 2018-03-02 08:51 | PN ---
DATE: 03/02/2018 SUBJECTIVE: The patient is seen and examined. Interim events noted. Psychiatric followup and intervention noted and appreciated. Patient remains in general psych unit. Awake, responsive, feels okay. Denies any specific complaints. No specific issue reported by nursing staff. PHYSICAL EXAMINATION: GENERAL: Patient is in no acute distress. VITAL SIGNS: Stable. Physical exam is essentially unchanged. DIAGNOSTIC DATA: Available diagnostic data reviewed. ASSESSMENT AND PLAN: Overall patient is medically stable. Plan as ordered. Agustin Alvarez MD
[2018-03-02] MEDS: Haloperidol Lactate 2 mg/ml Liquid PO PRN (17:19)
[2018-03-02] MEDS: Insulin Detemir 100 Units/ml Inj SC SCH (21:17)
[2018-03-03] MEDS: Pantoprazole 40 mg EC Tab PO SCH (08:22)
[2018-03-03] MEDS: Levothyroxine 50 MCG TAB PO SCH ×2 (08:22→08:23)
--- NOTE | 2018-03-03 11:06 | PN ---
DATE: 03/03/2018 SUBJECTIVE: The patient is seen and examined. Interim events noted. Patient remains in geropsych unit. Denies any specific complaint. PHYSICAL EXAMINATION: GENERAL: The patient is in no acute distress. VITAL SIGNS: Stable. Physical exam is essentially unchanged. DIAGNOSTIC DATA: Available diagnostic data reviewed. ASSESSMENT AND PLAN: Overall, the patient's general medical condition is stable. Plan as ordered. Agustin Alvarez MD
[2018-03-03] MEDS: Insulin Detemir 100 Units/ml Inj SC SCH (21:37)
[2018-03-04] MEDS: Levothyroxine 50 MCG TAB PO SCH (05:56)
[2018-03-04] MEDS: Pantoprazole 40 mg EC Tab PO SCH (08:51)
--- NOTE | 2018-03-04 12:42 | PN ---
DATE: 03/04/2018 SUBJECTIVE: The patient is seen and examined. Interim events noted. The patient remains in geropsych unit. The patient feels okay. Denies specific complaints. No specific issue reported by nursing staff. PHYSICAL EXAMINATION GENERAL: The patient is in no acute distress. VITAL SIGNS: Stable. Physical examination is essentially unchanged. DIAGNOSTIC DATA: Available diagnostic data reviewed. IMPRESSION: Overall, the patient's general medical condition is stable. PLAN: As ordered. Agustin Alvarez MD
[2018-03-04] MEDS: Insulin Detemir 100 Units/ml Inj SC SCH (21:10)
[2018-03-05] MEDS: Levothyroxine 50 MCG TAB PO SCH (06:20)
[2018-03-05] MEDS: Pantoprazole 40 mg EC Tab PO SCH (08:17)
[2018-03-05] MEDS: Haloperidol Lactate 2 mg/ml Liquid PO PRN (08:42)
--- NOTE | 2018-03-05 12:33 | PN ---
DATE: 03/05/2018 SUBJECTIVE: The patient is seen and examined. Interim events noted. The patient remains in geropsych unit. The patient feels okay. Denies specific complaints. No specific issue reported by nursing staff. PHYSICAL EXAMINATION GENERAL: The patient is in no acute distress. VITAL SIGNS: Stable. Physical examination is essentially unchanged. DIAGNOSTIC DATA: Available diagnostic data reviewed. ASSESSMENT AND PLAN: Overall, the patient's general medical condition is stable. Plan as ordered. Agustin Alvarez MD
[2018-03-05] MEDS: Insulin Detemir 100 Units/ml Inj SC SCH (21:10)
[2018-03-06] MEDS: Levothyroxine 50 MCG TAB PO SCH (05:47)
[2018-03-06] MEDS: Pantoprazole 40 mg EC Tab PO SCH (08:17)
--- NOTE | 2018-03-06 14:45 | PCM.BM ---
Treatment Plan Problems - Problems identified on initial assessmt Altered Thought Process Date Initiated: 01/07/18 Time Initiated: 19:11 Assessment reference: NA Status: Active Treatment assets and liabiliti Patient Assests: adapts well, cooperative, negotiates basic needs Patient Liabilities: live alone, poor support system, imparied memory - Milieu Protocol Maintain good personal hygiene: daily Encourage regular showers, daily Remind patient to perform daily oral care, daily Assist patient to perform ADL's Conduct patient checks and document Observation sheet: Q15 minutes Maintain personal safety: every shift Educate patient to report safety concerns to staff, every shift Monitor environment for contraband/sharps Medication safety: Monitor for expected outcome, potential side effects: every shift, Assess barriers to learning: every shift, Assess readiness for medication education: every shift Milieu Narrative: Schizophrenia, Dementia -Continue Risperdal 2 mg PO Q12 -Continue Aricept 5 mg PO HS -Medical evaluation -Individual and group therapy -Disposition planning- pending guardian appointment Family Contact Family involvement: No known Family/SO - Outside Agency Kathia Anguiano Esq Care involvment: Information-sharing Agency contact number: [phone] - Goals for Treatment Patient goals for treatment: Pt to be encouraged to attend activity and clinical groups 3-5x per week to decrease symptoms of paranoia, delusions and employ reality testing. Pt to be encouraged to participate in group milieu to develop coping skills to reduce psychiatric hospitalizations and further decompensation. Coordinate discharge resources needs by providing referral for psychiatric treatment follow up in the community. Discharge/Continuing Care - Education Needs Education Needs: Patient Medication, Patient Diagnosis/Disease Process, Patient Coping Skills, Patient Placement options, Patient Community resources, Patient Activities of Daily Living, Patient Nutrition, Patient Uses of Medical Equipment, Patient Health Practices/Safety, Patient Personal Hygiene/Grooming, Patient Aftercare Safety Plan - Discharge Discharge Criteria: Tolerates medication w/o severe side effects, Free of agitation, Normal sleep pattern, Ability to care for self, Reduction of target symptoms Discharge to:: Home - Additional Comments 01/09/18 13:22 Pt seen and discussed in team meeting. Reason for return to [facility] reviewed and discussed. Pt reported feeling "alright." Pt reported that he was on the medical unit due to "blood problems." Pt expressed feeling gratitude for being able to return to [facility] and continue psychiatric treatment. Staining Machine Operator informed pt that guardianship was initiated and pending court hearing is for February 21, 2018. Pt verbalized understanding of same and reported that he has the paperwork in his room. Pt's medications reviewed and discussed. Pt in agreement to continue tx howard and prescribed medications. Staining Machine Operator will continue to follow case. - Treatment Team Participation Patient/Family/SO Statement: Schizophrenia, Dementia -Continue Risperdal 2 mg PO Q12 -Continue Aricept 5 mg PO HS -Medical evaluation -Individual and group therapy -Disposition planning- pending guardian appointment Discussed with Family/SO: No Was Patient/Family/SO present at Treatment Team Meeting: Yes Treatment Plan Review Patient participation: Yes Family/SO/Caregiver participation: No Additional Comments: Pt seen and discussed in team meeting. Pt's progress and bx on the unit reviewed and discussed. Pt reported feeling "good thank god." Pt reported having no complaints in regards to prescribed medication and no side affects. Pt continues to present with poor insight and judgment into illness and diabetes dx. Pt continues to disagree with dx of diabetes stating " I'm fine, I'm good." Pt is now fixated on Haldol and constantly requesting to be prescribed Haldol because "it makes my hand and legs hot." Pt reported he was previously prescribed Haldol and he liked it. Pt reported he does not recall the dosage. Attending MD explained to pt that Haldol is not recommended and that he will continue to be prescribed Risperdal. Psycho-education regarding Haldol provided. Pt's medical and social issues reviewed and discussed. Pt refused to proceed with team meeting stating "I think i no speak no more." Pt exited team meeting. SW will continue to follow case and follow u with [facility] regarding discharge. - Problem Altered Thought Process Date Initiated: 01/07/18 Time Initiated: 19:11 Progress toward outcomes: unchanged (Pt continues to display poor insight and judgment into his mental illness. Pt is intermittently forgetful and confused.) Knowledge Deficit: Diabetes Mellitus Date Initiated: 02/14/18 Time Initiated: 14:41 Progress toward outcomes: unchanged (Pt continues to present with poor insight and judgment into illness Pt disagrees witht he dx and assures that he is not diabetic.) Agitated Behavior Date Initiated: 02/09/18 Time Initiated: 14:45 Progress toward outcomes: improved (Pt is easily agitated at times evidence by pt observed to be talking and screaming in his room. Pt observed to be agitated in the context that he wants to be discharged and go back home. No physical aggression noted or exhibited.) - Discharge / Continuing Care Discharge to:: Home Behavioral Health Services: Outpatient therapy, Home health care, Other (Meal on Wheels) Health Needs: Follow up care/test, Doctor appointments, Nutritional, Medications/Rx, Educational, Recreational/Social
--- NOTE | 2018-03-06 15:49 | PN ---
DATE: 03/06/2018 SUBJECTIVE: The patient is seen and examined. Interim events noted. The patient remains in geropsych unit, awake and responsive. No specific complaints of chest pain or shortness of breath. PHYSICAL EXAMINATION: GENERAL: The patient is in no acute distress. VITAL SIGNS: Stable. Physical examination is essentially unchanged. DIAGNOSTIC DATA: Available diagnostic data reviewed. ASSESSMENT AND PLAN: Overall, the patient's general medical condition is stable. Plan as ordered. Agustin Alvarez MD
[2018-03-06] MEDS: Insulin Detemir 100 Units/ml Inj SC SCH (21:10)
[2018-03-07] MEDS: Levothyroxine 50 MCG TAB PO SCH (05:33)
[2018-03-07] MEDS: Pantoprazole 40 mg EC Tab PO SCH (08:13)
[2018-03-07] MEDS: Haloperidol Lactate 2 mg/ml Liquid PO PRN (08:29)
--- NOTE | 2018-03-07 16:02 | PCM.PYCHPN ---
Psychiatric Progress Note - Psychiatric Progress Note Patient seen today, length of contact: Pt evaluated, case discussed w/ team, chart reviewed Patient Chief Complaint: seen in room, per staff pt agitated in am received prn haldol-was redirectable to room, somewhat irritable expresses desire to be discharged home, explained discharge planning in progress, review rispderdal vs haldol as standing medication-pt stated does not want to talk any more, has been rx adherent with standing medication, per staff pt has legal guardain, visited pt yesterday. Problems Identified/Issues Discussed: alteration in cognition alteration in self care Medical Problems: per chart Diagnostic Results: per psychiatry per medicine per manager social per recreational therapy DSM 5 Symptoms Update: alteration in mood/cognition Medication Change: No Medical Record Reviewed: Yes Consults ordered or reviewed: pt seen by dr jenkins Mental Status Examination - Cognitive Function Orientation: Person, Place, Situation, Time Memory: Impaired Attention: Poor Concentration: Poor Association: Loose Fund of Knowledge: Poor Decription of patient's judgement and insights: impaired - Mood Mood: Neutral - Affect Affect: Broad - Speech Speech: Appropriate - Formal Thought Process Formal Thought Process: Loosening of associations - Suicidal Ideation Suicidal Ideation: No - Homicidal Ideation Homicidal Ideation: No Goal/Treatment Plan - Goal/Treatment Plan Need for Continued Stay: Severe functional impairment Progress Toward Problem(s) and Goals/Treatment Plan: inpt adm adjust meds per status discharge planning in progress pending Estimated Date of D/C: 02/15/18 - Smoking Cessation Smoking Cessation Initiated: No Reason for not providing: pt deferred
[2018-03-07] MEDS: Insulin Detemir 100 Units/ml Inj SC SCH (21:02)
[2018-03-08] MEDS: Levothyroxine 50 MCG TAB PO SCH (05:31)
[2018-03-08] MEDS: Pantoprazole 40 mg EC Tab PO SCH (08:12)
--- NOTE | 2018-03-08 15:33 | PCM.PYCHPN ---
Psychiatric Progress Note - Psychiatric Progress Note Patient seen today, length of contact: Pt evaluated, case discussed w/ team, chart reviewed Patient Chief Complaint: pt seen in social area, staff report pt has been adherent with treatment, less irritable no prns received today, noted to be pacing in hallway at at times Problems Identified/Issues Discussed: alteration in cognition alteration in self care Medical Problems: per chart Diagnostic Results: per psychiatry per medicine per renal social worker per recreational therapy DSM 5 Symptoms Update: alteration in cognition Medication Change: No Medical Record Reviewed: Yes Consults ordered or reviewed: pt seen by dr jenkins Mental Status Examination - Cognitive Function Orientation: Person, Place, Situation, Time Memory: Impaired Attention: Poor Concentration: Poor Association: Loose Fund of Knowledge: Poor Decription of patient's judgement and insights: impaired - Mood Mood: Neutral - Affect Affect: Broad - Speech Speech: Appropriate - Formal Thought Process Formal Thought Process: Loosening of associations - Suicidal Ideation Suicidal Ideation: No - Homicidal Ideation Homicidal Ideation: No Goal/Treatment Plan - Goal/Treatment Plan Need for Continued Stay: Severe functional impairment Progress Toward Problem(s) and Goals/Treatment Plan: inpt adm adjust meds per status discharge planning in progress pending Estimated Date of D/C: 03/15/18 - Smoking Cessation Smoking Cessation Initiated: No Reason for not providing: pt defers
[2018-03-08] MEDS: Insulin Detemir 100 Units/ml Inj SC SCH (21:05)
[2018-03-09] MEDS: Levothyroxine 50 MCG TAB PO SCH (05:46)
[2018-03-09] MEDS: Pantoprazole 40 mg EC Tab PO SCH (08:25)
--- NOTE | 2018-03-09 11:25 | PN ---
DATE: 03/09/2018 SUBJECTIVE: The patient is seen and examined. Interim events noted. The patient remains in the acute medical floor, Geropsych Unit. Denies any specific complaint. No specific issue reported by nursing staff. PHYSICAL EXAMINATION: GENERAL: The patient is alert, in no acute distress. VITAL SIGNS: Stable. Physical examination is essentially unchanged. DIAGNOSTIC DATA: Available diagnostic data reviewed. ASSESSMENT AND PLAN: Overall, the patient's general medical condition is stable. Plan as ordered. Agustin Alvarez MD
--- NOTE | 2018-03-09 12:33 | PCM.PYCHPN ---
Psychiatric Progress Note - Psychiatric Progress Note Patient seen today, length of contact: Pt evaluated, case discussed w/ team, chart reviewed Patient Chief Complaint: I am good Problems Identified/Issues Discussed: pt seen in day room,reported mood is fine, constricted affect, partial eye contact, under productive speech, , no reported side effects of medications denied any current command hallucinations, denied S/H I DSM 5 Symptoms Update: major neurocognitive disorder Medication Change: No Medical Record Reviewed: Yes Mental Status Examination - Cognitive Function Orientation: Person, Place, Situation, Time Memory: Impaired Attention: Poor Concentration: Poor Association: Loose Fund of Knowledge: Poor - Mood Mood: Neutral - Affect Affect: Broad - Speech Speech: Appropriate - Formal Thought Process Formal Thought Process: Loosening of associations - Suicidal Ideation Suicidal Ideation: No - Homicidal Ideation Homicidal Ideation: No Goal/Treatment Plan - Goal/Treatment Plan Need for Continued Stay: Severe functional impairment Progress Toward Problem(s) and Goals/Treatment Plan: continue current management disposition planning group and supportive therapy Estimated Date of D/C: 03/15/18
[2018-03-09] MEDS: Insulin Detemir 100 Units/ml Inj SC SCH (21:15)
[2018-03-10] MEDS: Levothyroxine 50 MCG TAB PO SCH (05:42)
[2018-03-10] MEDS: Pantoprazole 40 mg EC Tab PO SCH (08:01)
--- NOTE | 2018-03-10 11:11 | PCM.PYCHPN ---
Psychiatric Progress Note - Psychiatric Progress Note Patient seen today, length of contact: Pt evaluated, case discussed w/ team, chart reviewed Patient Chief Complaint: I am fine Problems Identified/Issues Discussed: pt seen in day room,reported mood is fine, no reported behavioral disturbances, compliant with treatment ,constricted affect, partial eye contact, under productive speech, , no reported side effects of medications denied any current command hallucinations, denied S/H I Medication Change: No Medical Record Reviewed: Yes Mental Status Examination - Cognitive Function Orientation: Person, Place, Situation, Time Memory: Impaired Attention: Poor Concentration: Poor Association: Loose Fund of Knowledge: Poor - Mood Mood: Neutral - Affect Affect: Broad - Speech Speech: Appropriate - Formal Thought Process Formal Thought Process: Loosening of associations - Suicidal Ideation Suicidal Ideation: No - Homicidal Ideation Homicidal Ideation: No Goal/Treatment Plan - Goal/Treatment Plan Need for Continued Stay: Severe functional impairment Progress Toward Problem(s) and Goals/Treatment Plan: continue current management disposition planning group and supportive therapy Estimated Date of D/C: 03/15/18
[2018-03-10] MEDS: Insulin Detemir 100 Units/ml Inj SC SCH (21:07)
[2018-03-11] MEDS: Levothyroxine 50 MCG TAB PO SCH (05:32)
--- NOTE | 2018-03-11 07:58 | PCM.PYCHPN ---
Psychiatric Progress Note - Psychiatric Progress Note Patient seen today, length of contact: Pt evaluated, case discussed w/ team, chart reviewed Patient Chief Complaint: Inability to care for self Problems Identified/Issues Discussed: No new events over the weekend. Pt reports that his mood is stable. He denies acute AH/VH/paranoia/delusions. Guardian was appointed and therapeutic case manager met with patient on the unit last week. SW currently working on discharge planning. [facility] to review discharge planning and provide final authorization to discharge patient back to home. Patient is psychiatrically stable for home health aide referral. Patient requires assistance with medication management and ADLs. Medication Change: No Medical Record Reviewed: Yes Consults ordered or reviewed: Medicine consult Mental Status Examination - Cognitive Function Orientation: Person, Place, Situation, Time Memory: Impaired Attention: Poor Concentration: Poor Association: Loose Fund of Knowledge: Poor Decription of patient's judgement and insights: Chronic poor I/J - Mood Mood: Neutral - Affect Affect: Broad - Speech Speech: Appropriate - Formal Thought Process Formal Thought Process: Loosening of associations Psychotic Thoughts and Behaviors: No AH/VH/paranoia/delusions - Suicidal Ideation Suicidal Ideation: No - Homicidal Ideation Homicidal Ideation: No Goal/Treatment Plan - Goal/Treatment Plan Progress Toward Problem(s) and Goals/Treatment Plan: Schizophrenia, Dementia -Continue Risperdal 2 mg PO Q12 -Continue Aricept 5 mg PO HS -Medical evaluation -Individual and group therapy -Disposition planning- guardian appointed, pending final authorization to discharge patient home Estimated Date of D/C: 03/15/18
--- NOTE | 2018-03-11 08:49 | PN ---
DATE: 03/08/2018 SUBJECTIVE: The patient seen and examined. Interim events noted. The patient remains in geropsych unit. Psychiatric followup and intervention noted and appreciated. The patient feels okay. Denies any specific complaint. No specific issue reported by nursing staff. PHYSICAL EXAMINATION: GENERAL: The patient is in no acute distress. VITAL SIGNS: Stable. Physical examination is essentially unchanged. DIAGNOSTIC DATA: The available diagnostic data reviewed. ASSESSMENT AND PLAN: Overall, the patient's general medical condition is stable. Plan as ordered. Agustin Alvarez MD
[2018-03-11] MEDS: Pantoprazole 40 mg EC Tab PO SCH (08:50)
--- NOTE | 2018-03-11 12:04 | PN ---
DATE: 03/11/2018 SUBJECTIVE: The patient is seen and examined. Interim events noted. Psychiatric followup and intervention noted and appreciated. The patient remains in geropsych unit. Awake, responsive, feels okay. Denies any specific complaint. No specific issue reported by nursing staff. PHYSICAL EXAMINATION: GENERAL: The patient is in no acute distress. VITAL SIGNS: Stable. Physical exam is essentially unchanged. DIAGNOSTIC DATA: Available diagnostic data reviewed. ASSESSMENT AND PLAN: Overall, the patient's general medical condition is stable. Plan as ordered. Agustin Alvarez MD
[2018-03-11] MEDS: Insulin Detemir 100 Units/ml Inj SC SCH (21:10)
[2018-03-12] MEDS: Levothyroxine 50 MCG TAB PO SCH (06:02)
[2018-03-12] MEDS: Pantoprazole 40 mg EC Tab PO SCH (09:04)
--- NOTE | 2018-03-12 10:03 | PCM.PYCHPN ---
Psychiatric Progress Note - Psychiatric Progress Note Patient seen today, length of contact: Pt evaluated, case discussed w/ team, chart reviewed Patient Chief Complaint: Inability to care for self Problems Identified/Issues Discussed: No new events. Pt reports that his mood is stable. He denies acute AH/VH/paranoia/delusions. Guardian was appointed and watch caser met with patient on the unit last week. SW currently working on discharge planning. [facility] to review discharge planning and provide final authorization to discharge patient back to home. Patient is psychiatrically stable for home health aide referral. Patient requires assistance with medication management and ADLs. Medication Change: No Medical Record Reviewed: Yes Consults ordered or reviewed: Medicine consult Mental Status Examination - Cognitive Function Orientation: Person, Place, Situation, Time Memory: Impaired Attention: Poor Concentration: Poor Association: Loose Fund of Knowledge: Poor Decription of patient's judgement and insights: Chronic poor I/J - Mood Mood: Neutral - Affect Affect: Broad - Speech Speech: Appropriate - Formal Thought Process Formal Thought Process: Loosening of associations Psychotic Thoughts and Behaviors: No AH/VH/paranoia/delusions - Suicidal Ideation Suicidal Ideation: No - Homicidal Ideation Homicidal Ideation: No Goal/Treatment Plan - Goal/Treatment Plan Need for Continued Stay: Severe functional impairment Progress Toward Problem(s) and Goals/Treatment Plan: Schizophrenia, Dementia -Continue Risperdal 2 mg PO Q12 -Continue Aricept 5 mg PO HS -Medical evaluation -Individual and group therapy -Disposition planning- guardian appointed, pending final authorization to discharge patient home Estimated Date of D/C: 03/15/18
--- NOTE | 2018-03-12 14:08 | PN ---
DATE: 03/12/2018 SUBJECTIVE: The patient seen and examined. Interim events noted. Psychiatric followup and intervention noted and appreciated. The patient remains in geropsych unit. Case discussed with psychiatrist. The patient feels okay. Denies any specific complaint. No chest pain, no shortness of breath. PHYSICAL EXAMINATION: GENERAL: The patient is in no acute distress. VITAL SIGNS: Stable. Physical exam is essentially unchanged. DIAGNOSTIC DATA: Available diagnostic data reviewed. ASSESSMENT AND PLAN: Sugar is still running little high. We will add metformin and also renew Levemir. Plan as ordered. Case and plan discussed with patient and nurses. Agustin Alvarez MD
[2018-03-12] MEDS: Insulin Detemir 100 Units/ml Inj SC SCH (21:25)
[2018-03-13] MEDS: Levothyroxine 50 MCG TAB PO SCH (05:39)
--- NOTE | 2018-03-13 07:49 | CP.PCM.PN ---
<HamelNunn - Last Filed: 03/13/18 08:28> Subjective - Date & Time of Evaluation Date of Evaluation: 03/13/18 Time of Evaluation: 07:45 - Subjective Subjective: Patient seen and examined this morning with Dr. Alvarez. No acute overnight event. No acute complaints or concerns. Objective - Vital Signs/Intake and Output Vital Signs (last 24 hours): Temp Pulse Resp BP Pulse Ox 97.4 F L 77 19 128/67 03/13/18 06:00 03/13/18 06:00 03/13/18 06:00 03/13/18 06:00 - Medications Medications: Current Medications Acetaminophen (Tylenol 325mg Tab) 650 mg PO Q4 PRN PRN Reason: Pain, moderate (4-7) Last Admin: 03/09/18 14:44 Dose: 650 mg Aspirin (Aspirin Chewable) 81 mg PO DAILY [facility] Last Admin: 03/12/18 09:03 Dose: 81 mg Bismuth Subsalicylate (Pepto-Bismol) 524 mg PO Q4 PRN PRN Reason: Diarrhea Donepezil HCl (Aricept) 5 mg PO [facility] Last Admin: 03/12/18 21:24 Dose: 5 mg Glipizide (Glucotrol) 10 mg PO ACB [facility] Last Admin: 03/12/18 09:03 Dose: 10 mg Haloperidol (Haldol) 1 mg PO Q4 PRN PRN Reason: Agitation Haloperidol Lactate (Haldol) 2 mg PO Q8 PRN PRN Reason: Agitation Last Admin: 03/07/18 08:29 Dose: 2 mg Insulin Detemir (Levemir) 8 units SC [facility] Last Admin: 03/12/18 21:25 Dose: 8 unit Levothyroxine Sodium (Synthroid) 50 mcg PO DAILY@0630 [facility] Last Admin: 03/13/18 05:39 Dose: 50 mcg Lorazepam (Ativan) 0.5 mg PO Q6 PRN PRN Reason: Anxiety Magnesium Hydroxide (Milk Of Magnesia) 30 ml PO HS PRN PRN Reason: Constipation Metformin HCl (Glucophage) 500 mg PO BIDWM [facility] Last Admin: 03/12/18 17:51 Dose: 500 mg Pantoprazole Sodium (Protonix Ec Tab) 40 mg PO DAILY [facility] Last Admin: 03/12/18 09:04 Dose: 40 mg Risperidone (Risperdal Tab) 2 mg PO BID [facility] Last Admin: 03/12/18 17:52 Dose: 2 mg Sitagliptin Phosphate (Januvia) 100 mg PO DAILY [facility] Last Admin: 03/12/18 09:03 Dose: 100 mg Trazodone HCl (Desyrel) 50 mg PO HS PRN PRN Reason: Insomnia - Labs Labs: 02/20/18 05:45 02/20/18 05:45 - Constitutional Appears: No Acute Distress - Head Exam Head Exam: NORMAL INSPECTION - Eye Exam Eye Exam: Normal appearance - ENT Exam ENT Exam: Mucous Membranes Moist - Respiratory Exam Respiratory Exam: NORMAL BREATHING PATTERN - Extremities Exam Extremities Exam: Normal Inspection - Neurological Exam Neurological Exam: Alert, Normal Gait Assessment and Plan - Assessment and Plan (Free Text) Plan: 72 year old male hx schizoaffective disorder, dementia and DM admitted to [facility] unit. SW is working on discharge planning, awaiting home health aide referral approval to discharge home. Plan: Pt remains stable. Continue current primary management by psychiatric team Rest of the plan as ordered Patient seen, examined and plan d/w Dr. Kim Neves, pgy-2 <Agustin Alvarez - Last Filed: 03/15/18 13:27> Objective - Vital Signs/Intake and Output Vital Signs (last 24 hours): Temp Pulse Resp BP Pulse Ox 97.8 F 80 20 137/74 03/15/18 06:00 03/15/18 06:00 03/15/18 06:00 03/15/18 06:00 - Medications Medications: Current Medications Acetaminophen (Tylenol 325mg Tab) 650 mg PO Q4 PRN PRN Reason: Pain, moderate (4-7) Last Admin: 03/09/18 14:44 Dose: 650 mg Aspirin (Aspirin Chewable) 81 mg PO DAILY [facility] Last Admin: 03/15/18 07:59 Dose: 81 mg Bismuth Subsalicylate (Pepto-Bismol) 524 mg PO Q4 PRN PRN Reason: Diarrhea Donepezil HCl (Aricept) 5 mg PO HS [facility] Last Admin: 03/14/18 21:07 Dose: 5 mg Glipizide (Glucotrol) 10 mg PO ACB [facility] Last Admin: 03/15/18 08:00 Dose: 10 mg Haloperidol (Haldol) 1 mg PO Q4 PRN PRN Reason: Agitation Haloperidol Lactate (Haldol) 2 mg PO Q8 PRN PRN Reason: Agitation Last Admin: 03/07/18 08:29 Dose: 2 mg Insulin Detemir (Levemir) 8 units SC HS [facility] Last Admin: 03/14/18 21:07 Dose: 8 unit Levothyroxine Sodium (Synthroid) 50 mcg PO DAILY@0630 [facility] Last Admin: 03/15/18 06:29 Dose: 50 mcg Lorazepam (Ativan) 0.5 mg PO Q6 PRN PRN Reason: Anxiety Last Admin: 03/15/18 08:03 Dose: 0.5 mg Magnesium Hydroxide (Milk Of Magnesia) 30 ml PO HS PRN PRN Reason: Constipation Metformin HCl (Glucophage) 500 mg PO BIDWM [facility] Last Admin: 03/15/18 07:59 Dose: 500 mg Pantoprazole Sodium (Protonix Ec Tab) 40 mg PO DAILY [facility] Last Admin: 03/15/18 08:01 Dose: 40 mg Risperidone (Risperdal Tab) 2 mg PO BID [facility] Last Admin: 03/15/18 08:01 Dose: 2 mg Sitagliptin Phosphate (Januvia) 100 mg PO DAILY [facility] Last Admin: 03/15/18 08:00 Dose: 100 mg Trazodone HCl (Desyrel) 50 mg PO HS PRN PRN Reason: Insomnia - Labs Labs: 02/20/18 05:45 02/20/18 05:45 Assessment and Plan - Assessment and Plan (Free Text) Plan: Patient was personally seen and examined by me in rounds with residents. Available labs and diagnostic data reviewed. Case, Patient's condition and management plan discussed with residents in rounds. Agree with resident's progress note. Plan: As ordered.
--- NOTE | 2018-03-13 08:14 | PCM.PYCHPN ---
Psychiatric Progress Note - Psychiatric Progress Note Patient seen today, length of contact: Pt evaluated, case discussed w/ team, chart reviewed Patient Chief Complaint: Inability to care for self Problems Identified/Issues Discussed: No new events overnight. Pt reports that his mood is stable. He denies acute AH/VH/paranoia/delusions. Guardian was appointed and sample case porter met with patient on the unit last week. SW currently working on discharge planning. [facility] to review discharge planning and provide final authorization to discharge patient back to home. Patient is psychiatrically stable for home health aide referral. Patient requires assistance with medication management and ADLs. Medication Change: No Medical Record Reviewed: Yes Consults ordered or reviewed: Medicine consult Mental Status Examination - Cognitive Function Orientation: Person, Place, Situation, Time Memory: Impaired Attention: Poor Concentration: Poor Association: Loose Fund of Knowledge: Poor Decription of patient's judgement and insights: Chronic poor I/J - Mood Mood: Neutral - Affect Affect: Broad - Speech Speech: Appropriate - Formal Thought Process Formal Thought Process: Loosening of associations Psychotic Thoughts and Behaviors: No AH/VH/paranoia/delusions - Suicidal Ideation Suicidal Ideation: No - Homicidal Ideation Homicidal Ideation: No Goal/Treatment Plan - Goal/Treatment Plan Need for Continued Stay: Severe functional impairment Progress Toward Problem(s) and Goals/Treatment Plan: Schizophrenia, Dementia -Continue Risperdal 2 mg PO Q12 -Continue Aricept 5 mg PO HS -Medical evaluation -Individual and group therapy -Disposition planning- guardian appointed, pending final authorization to discharge patient home Estimated Date of D/C: 03/15/18
[2018-03-13] MEDS: Pantoprazole 40 mg EC Tab PO SCH (08:26)
[2018-03-13] MEDS: Insulin Detemir 100 Units/ml Inj SC SCH (21:02)
[2018-03-14] MEDS: Levothyroxine 50 MCG TAB PO SCH (05:54)
--- NOTE | 2018-03-14 07:50 | PCM.PYCHPN ---
Psychiatric Progress Note - Psychiatric Progress Note Patient seen today, length of contact: Pt evaluated, case discussed w/ team, chart reviewed Patient Chief Complaint: Inability to care for self Problems Identified/Issues Discussed: Pt reports that his mood is stable. He denies acute AH/VH/paranoia/delusions. Guardian was appointed and continuous pillowcase cutter met with patient on the unit last week. SW currently working on discharge planning. [facility] to review discharge planning and provide final authorization to discharge patient back to home. Patient is psychiatrically stable for home health aide referral. Patient requires assistance with medication management and ADLs. Medication Change: No Medical Record Reviewed: Yes Consults ordered or reviewed: Medicine consult Mental Status Examination - Cognitive Function Orientation: Person, Place, Situation, Time Memory: Impaired Attention: Poor Concentration: Poor Association: Loose Fund of Knowledge: Poor Decription of patient's judgement and insights: Chronic poor I/J - Mood Mood: Neutral - Affect Affect: Broad - Speech Speech: Appropriate - Formal Thought Process Formal Thought Process: Loosening of associations Psychotic Thoughts and Behaviors: No AH/VH/paranoia/delusions - Suicidal Ideation Suicidal Ideation: No - Homicidal Ideation Homicidal Ideation: No Goal/Treatment Plan - Goal/Treatment Plan Need for Continued Stay: Severe functional impairment Progress Toward Problem(s) and Goals/Treatment Plan: Schizophrenia, Dementia -Continue Risperdal 2 mg PO Q12 -Continue Aricept 5 mg PO HS -Medical evaluation -Individual and group therapy -Disposition planning- guardian appointed, pending final authorization to discharge patient home Estimated Date of D/C: 03/19/18
--- NOTE | 2018-03-14 09:12 | CP.PCM.PN ---
<LyndonvilleSultan - Last Filed: 03/14/18 10:31> Subjective - Date & Time of Evaluation Date of Evaluation: 03/14/18 Time of Evaluation: 08:20 - Subjective Subjective: Patient seen and examined with Dr. Alvarez this AM. No acute overnight event. Stable vitals, BS is stable. Denies any acute complaints or concerns. Objective - Vital Signs/Intake and Output Vital Signs (last 24 hours): Temp Pulse Resp BP Pulse Ox 97.7 F 89 19 149/85 03/14/18 06:00 03/14/18 06:00 03/14/18 06:00 03/14/18 06:00 - Medications Medications: Current Medications Acetaminophen (Tylenol 325mg Tab) 650 mg PO Q4 PRN PRN Reason: Pain, moderate (4-7) Last Admin: 03/09/18 14:44 Dose: 650 mg Aspirin (Aspirin Chewable) 81 mg PO DAILY [facility] Last Admin: 03/14/18 08:22 Dose: 81 mg Bismuth Subsalicylate (Pepto-Bismol) 524 mg PO Q4 PRN PRN Reason: Diarrhea Donepezil HCl (Aricept) 5 mg PO HS [facility] Last Admin: 03/13/18 21:02 Dose: 5 mg Glipizide (Glucotrol) 10 mg PO ACB [facility] Last Admin: 03/14/18 08:23 Dose: 10 mg Haloperidol (Haldol) 1 mg PO Q4 PRN PRN Reason: Agitation Haloperidol Lactate (Haldol) 2 mg PO Q8 PRN PRN Reason: Agitation Last Admin: 03/07/18 08:29 Dose: 2 mg Insulin Detemir (Levemir) 8 units SC HS [facility] Last Admin: 03/13/18 21:02 Dose: 8 unit Levothyroxine Sodium (Synthroid) 50 mcg PO DAILY@0630 [facility] Last Admin: 03/14/18 05:54 Dose: 50 mcg Lorazepam (Ativan) 0.5 mg PO Q6 PRN PRN Reason: Anxiety Magnesium Hydroxide (Milk Of Magnesia) 30 ml PO HS PRN PRN Reason: Constipation Metformin HCl (Glucophage) 500 mg PO BIDWM [facility] Last Admin: 03/14/18 08:22 Dose: 500 mg Pantoprazole Sodium (Protonix Ec Tab) 40 mg PO DAILY [facility] Last Admin: 03/13/18 08:26 Dose: 40 mg Risperidone (Risperdal Tab) 2 mg PO BID [facility] Last Admin: 03/14/18 08:22 Dose: 2 mg Sitagliptin Phosphate (Januvia) 100 mg PO DAILY [facility] Last Admin: 03/14/18 08:22 Dose: 100 mg Trazodone HCl (Desyrel) 50 mg PO HS PRN PRN Reason: Insomnia - Labs Labs: 02/20/18 05:45 02/20/18 05:45 - Constitutional Appears: Non-toxic, No Acute Distress, Unkempt - Head Exam Head Exam: NORMAL INSPECTION - Eye Exam Eye Exam: Normal appearance - Respiratory Exam Respiratory Exam: NORMAL BREATHING PATTERN - GI/Abdominal Exam GI & Abdominal Exam: Soft, Normal Bowel Sounds. absent: Tenderness - Extremities Exam Extremities Exam: Normal Inspection. absent: Calf Tenderness - Neurological Exam Neurological Exam: Alert, Awake - Psychiatric Exam Psychiatric exam: Normal Affect, Normal Mood - Skin Skin Exam: Normal Color, Warm Assessment and Plan - Assessment and Plan (Free Text) Assessment: 72 year old male hx schizoaffective disorder, dementia and DM admitted to [facility] unit. SW is working on discharge planning, awaiting home health aide referral approval to discharge home. Plan: Pt remains stable. Continue current primary management by psychiatric team Rest of the plan as ordered Patient seen, examined and plan d/w Dr. Kim Neves, pgy-2 <Agustin Alvarez - Last Filed: 03/15/18 13:25> Objective - Vital Signs/Intake and Output Vital Signs (last 24 hours): Temp Pulse Resp BP Pulse Ox 97.8 F 80 20 137/74 03/15/18 06:00 03/15/18 06:00 03/15/18 06:00 03/15/18 06:00 - Medications Medications: Current Medications Acetaminophen (Tylenol 325mg Tab) 650 mg PO Q4 PRN PRN Reason: Pain, moderate (4-7) Last Admin: 03/09/18 14:44 Dose: 650 mg Aspirin (Aspirin Chewable) 81 mg PO DAILY [facility] Last Admin: 03/15/18 07:59 Dose: 81 mg Bismuth Subsalicylate (Pepto-Bismol) 524 mg PO Q4 PRN PRN Reason: Diarrhea Donepezil HCl (Aricept) 5 mg PO HS [facility] Last Admin: 03/14/18 21:07 Dose: 5 mg Glipizide (Glucotrol) 10 mg PO ACB [facility] Last Admin: 03/15/18 08:00 Dose: 10 mg Haloperidol (Haldol) 1 mg PO Q4 PRN PRN Reason: Agitation Haloperidol Lactate (Haldol) 2 mg PO Q8 PRN PRN Reason: Agitation Last Admin: 03/07/18 08:29 Dose: 2 mg Insulin Detemir (Levemir) 8 units SC HS [facility] Last Admin: 03/14/18 21:07 Dose: 8 unit Levothyroxine Sodium (Synthroid) 50 mcg PO DAILY@0630 [facility] Last Admin: 03/15/18 06:29 Dose: 50 mcg Lorazepam (Ativan) 0.5 mg PO Q6 PRN PRN Reason: Anxiety Last Admin: 03/15/18 08:03 Dose: 0.5 mg Magnesium Hydroxide (Milk Of Magnesia) 30 ml PO HS PRN PRN Reason: Constipation Metformin HCl (Glucophage) 500 mg PO BIDWM [facility] Last Admin: 03/15/18 07:59 Dose: 500 mg Pantoprazole Sodium (Protonix Ec Tab) 40 mg PO DAILY [facility] Last Admin: 03/15/18 08:01 Dose: 40 mg Risperidone (Risperdal Tab) 2 mg PO BID [facility] Last Admin: 03/15/18 08:01 Dose: 2 mg Sitagliptin Phosphate (Januvia) 100 mg PO DAILY [facility] Last Admin: 03/15/18 08:00 Dose: 100 mg Trazodone HCl (Desyrel) 50 mg PO HS PRN PRN Reason: Insomnia - Labs Labs: 02/20/18 05:45 02/20/18 05:45 Assessment and Plan - Assessment and Plan (Free Text) Assessment: Patient was personally seen and examined by me in rounds with residents. Available labs and diagnostic data reviewed. Case, Patient's condition and management plan discussed with residents in rounds. Agree with resident's progress note. Plan: As ordered.
[2018-03-14] MEDS: Pantoprazole 40 mg EC Tab PO SCH (10:06)
--- NOTE | 2018-03-14 11:24 | PCM.BM ---
Treatment Plan Problems - Problems identified on initial assessmt Altered Thought Process Date Initiated: 01/07/18 Time Initiated: 19:11 Assessment reference: NA Status: Active Knowledge Deficit: Diabetes Mellitus Time Initiated: 14:41 Agitated Behavior Time Initiated: 14:45 Treatment assets and liabiliti Patient Assests: adapts well, cooperative, negotiates basic needs Patient Liabilities: live alone, poor support system, imparied memory - Milieu Protocol Maintain good personal hygiene: daily Encourage regular showers, daily Remind patient to perform daily oral care, daily Assist patient to perform ADL's Conduct patient checks and document Observation sheet: Q15 minutes Maintain personal safety: every shift Educate patient to report safety concerns to staff, every shift Monitor environment for contraband/sharps Medication safety: Monitor for expected outcome, potential side effects: every shift, Assess barriers to learning: every shift, Assess readiness for medication education: every shift Milieu Narrative: Schizophrenia, Dementia -Continue Risperdal 2 mg PO Q12 -Continue Aricept 5 mg PO HS -Medical evaluation -Individual and group therapy -Disposition planning- guardian appointed, pending final authorization to discharge patient home Family Contact Family involvement: No known Family/SO - Outside Agency Kathia Anguiano Esq Care involvment: Information-sharing Agency contact number: [phone] - Goals for Treatment Patient goals for treatment: Pt to be encouraged to attend activity and clinical groups 3-5x per week to decrease symptoms of paranoia, delusions and employ reality testing. Pt to be encouraged to participate in group milieu to develop coping skills to reduce psychiatric hospitalizations and further decompensation. Coordinate discharge resources needs by providing referral for psychiatric treatment follow up in the community. Discharge/Continuing Care - Education Needs Education Needs: Patient Medication, Patient Diagnosis/Disease Process, Patient Coping Skills, Patient Placement options, Patient Community resources, Patient Activities of Daily Living, Patient Nutrition, Patient Uses of Medical Equipment, Patient Health Practices/Safety, Patient Personal Hygiene/Grooming, Patient Aftercare Safety Plan - Discharge Discharge Criteria: Tolerates medication w/o severe side effects, Free of agitation, Normal sleep pattern, Ability to care for self, Reduction of target symptoms Discharge to:: Home - Additional Comments 01/09/18 13:22 Pt seen and discussed in team meeting. Reason for return to [facility] reviewed and discussed. Pt reported feeling "alright." Pt reported that he was on the medical unit due to "blood problems." Pt expressed feeling gratitude for being able to return to [facility] and continue psychiatric treatment. [employer] Operator informed pt that guardianship was initiated and pending court hearing is for February 21, 2018. Pt verbalized understanding of same and reported that he has the paperwork in his room. Pt's medications reviewed and discussed. Pt in agreement to continue tx howard and prescribed medications. [employer] Operator will continue to follow case. - Treatment Team Participation Patient/Family/SO Statement: Schizophrenia, Dementia -Continue Risperdal 2 mg PO Q12 -Continue Aricept 5 mg PO HS -Medical evaluation -Individual and group therapy -Disposition planning- guardian appointed, pending final authorization to discharge patient home Discussed with Family/SO: No Was Patient/Family/SO present at Treatment Team Meeting: Yes Treatment Plan Review Patient participation: Yes Family/SO/Caregiver participation: No Additional Comments: Late entry form 03/13/2018: Pt seen and discussed in team meeting. Pt's progress and bx on the unit reviewed and discussed at length. Pt reported feeling "good." Pt reported having a good appetite and sleep pattern. Pt was easily irritable and asking if he was being discharged. Pt advised that he met with [facility] case picker last week and [facility] needs to approve the after care recommendations and discharge. Pt reported he does not recall meeting with [facility] case picker. Pt reported having no questions in regards to his medications and treatment. Pt reported "service here alright." Pt's medications reviewed and discussed. Tx plan reviewed and discussed. SW will continue to follow up with [facility] case picker and coordinator discharge back home. - Problem Altered Thought Process Date Initiated: 01/07/18 Time Initiated: 19:11 Progress toward outcomes: unchanged (Pt continues to display poor insight and judgment into his mental illness. Pt is intermittently forgetful and confused.) Knowledge Deficit: Diabetes Mellitus Date Initiated: 02/14/18 Time Initiated: 14:41 Progress toward outcomes: unchanged (Pt continues to present with poor insight and judgment into illness Pt disagrees witht he dx and assures that he is not diabetic.) Agitated Behavior Date Initiated: 02/09/18 Time Initiated: 14:45 Progress toward outcomes: improved (Pt is easily agitated at times evidence by pt observed to be talking and screaming in his room. Pt observed to be agitated in the context that he wants to be discharged and go back home. No physical aggression noted or exhibited.) - Discharge / Continuing Care Discharge to:: Home Behavioral Health Services: Outpatient therapy, Home health care Health Needs: Follow up care/test, Doctor appointments, Nutritional, Medications/Rx, Educational, Recreational/Social
[2018-03-14] MEDS: Insulin Detemir 100 Units/ml Inj SC SCH (21:07)
[2018-03-15] MEDS: Levothyroxine 50 MCG TAB PO SCH (06:29)
[2018-03-15] MEDS: Pantoprazole 40 mg EC Tab PO SCH (08:01)
--- NOTE | 2018-03-15 08:37 | PCM.PYCHPN ---
Psychiatric Progress Note - Psychiatric Progress Note Patient seen today, length of contact: Pt evaluated, case discussed w/ team, chart reviewed Patient Chief Complaint: Inability to care for self Problems Identified/Issues Discussed: Pt reports that his mood is stable. He denies acute AH/VH/paranoia/delusions. Guardian was appointed, discharge tentatively arranged for 03/20/17, once all home services are in place. Medication Change: No Medical Record Reviewed: Yes Consults ordered or reviewed: Medicine consult Mental Status Examination - Cognitive Function Orientation: Person, Place, Situation, Time Memory: Impaired Attention: Poor Concentration: Poor Association: Loose Fund of Knowledge: Poor Decription of patient's judgement and insights: Chronic poor I/J - Mood Mood: Neutral - Affect Affect: Broad - Speech Speech: Appropriate - Formal Thought Process Formal Thought Process: Loosening of associations Psychotic Thoughts and Behaviors: No AH/VH/paranoia/delusions - Suicidal Ideation Suicidal Ideation: No - Homicidal Ideation Homicidal Ideation: No Goal/Treatment Plan - Goal/Treatment Plan Need for Continued Stay: Severe functional impairment Progress Toward Problem(s) and Goals/Treatment Plan: Schizophrenia, Dementia -Continue Risperdal 2 mg PO Q12 -Continue Aricept 5 mg PO HS -Medical evaluation -Individual and group therapy -Disposition planning- Guardian was appointed, discharge tentatively arranged for 03/20/17, once all home services are in place. Estimated Date of D/C: 03/20/18
--- NOTE | 2018-03-15 08:50 | CP.PCM.PN ---
<LarkspurBoss - Last Filed: 03/15/18 08:46> Subjective - Date & Time of Evaluation Date of Evaluation: 03/15/18 Time of Evaluation: 08:05 - Subjective Subjective: Patient seen and examined with Dr. Alvarez this AM. No acute overnight event. Stable vitals, blood glucose is stable. Denies any acute complaints or concerns. Objective - Vital Signs/Intake and Output Vital Signs (last 24 hours): Temp Pulse Resp BP Pulse Ox 97.8 F 80 20 137/74 03/15/18 06:00 03/15/18 06:00 03/15/18 06:00 03/15/18 06:00 - Medications Medications: Current Medications Acetaminophen (Tylenol 325mg Tab) 650 mg PO Q4 PRN PRN Reason: Pain, moderate (4-7) Last Admin: 03/09/18 14:44 Dose: 650 mg Aspirin (Aspirin Chewable) 81 mg PO DAILY [facility] Last Admin: 03/15/18 07:59 Dose: 81 mg Bismuth Subsalicylate (Pepto-Bismol) 524 mg PO Q4 PRN PRN Reason: Diarrhea Donepezil HCl (Aricept) 5 mg PO [facility] Last Admin: 03/14/18 21:07 Dose: 5 mg Glipizide (Glucotrol) 10 mg PO ACB [facility] Last Admin: 03/15/18 08:00 Dose: 10 mg Haloperidol (Haldol) 1 mg PO Q4 PRN PRN Reason: Agitation Haloperidol Lactate (Haldol) 2 mg PO Q8 PRN PRN Reason: Agitation Last Admin: 03/07/18 08:29 Dose: 2 mg Insulin Detemir (Levemir) 8 units SC [facility] Last Admin: 03/14/18 21:07 Dose: 8 unit Levothyroxine Sodium (Synthroid) 50 mcg PO DAILY@0630 [facility] Last Admin: 03/15/18 06:29 Dose: 50 mcg Lorazepam (Ativan) 0.5 mg PO Q6 PRN PRN Reason: Anxiety Last Admin: 03/15/18 08:03 Dose: 0.5 mg Magnesium Hydroxide (Milk Of Magnesia) 30 ml PO HS PRN PRN Reason: Constipation Metformin HCl (Glucophage) 500 mg PO BIDWM [facility] Last Admin: 03/15/18 07:59 Dose: 500 mg Pantoprazole Sodium (Protonix Ec Tab) 40 mg PO DAILY [facility] Last Admin: 03/15/18 08:01 Dose: 40 mg Risperidone (Risperdal Tab) 2 mg PO BID [facility] Last Admin: 03/15/18 08:01 Dose: 2 mg Sitagliptin Phosphate (Januvia) 100 mg PO DAILY [facility] Last Admin: 03/15/18 08:00 Dose: 100 mg Trazodone HCl (Desyrel) 50 mg PO HS PRN PRN Reason: Insomnia - Labs Labs: 02/20/18 05:45 02/20/18 05:45 - Constitutional Appears: No Acute Distress, Unkempt - Head Exam Head Exam: NORMAL INSPECTION - Eye Exam Eye Exam: Normal appearance - Neck Exam Neck Exam: Normal Inspection - Respiratory Exam Respiratory Exam: NORMAL BREATHING PATTERN - Cardiovascular Exam Cardiovascular Exam: REGULAR RHYTHM, +S1, +S2 - GI/Abdominal Exam GI & Abdominal Exam: Soft, Normal Bowel Sounds. absent: Tenderness - Extremities Exam Extremities Exam: Normal Inspection. absent: Calf Tenderness - Neurological Exam Neurological Exam: Alert, Awake, Normal Gait - Psychiatric Exam Psychiatric exam: Normal Affect, Normal Mood - Skin Skin Exam: Normal Color Assessment and Plan - Assessment and Plan (Free Text) Assessment: 72 year old male hx schizoaffective disorder, dementia and DM admitted to [facility] unit. [facility] is working on discharge planning, anticipate discharge on 03/20/18 with pending home health aide approval. Plan: Continue current primary management by psychiatric team Pt remains stable. Rest of the plan as ordered Patient seen, examined and plan d/w Dr. Kim Neves, pgy-2 <Agustin Alvarez - Last Filed: 03/15/18 13:23> Objective - Vital Signs/Intake and Output Vital Signs (last 24 hours): Temp Pulse Resp BP Pulse Ox 97.8 F 80 20 137/74 03/15/18 06:00 03/15/18 06:00 03/15/18 06:00 03/15/18 06:00 - Medications Medications: Current Medications Acetaminophen (Tylenol 325mg Tab) 650 mg PO Q4 PRN PRN Reason: Pain, moderate (4-7) Last Admin: 03/09/18 14:44 Dose: 650 mg Aspirin (Aspirin Chewable) 81 mg PO DAILY [facility] Last Admin: 01/04/19 07:59 Dose: 81 mg Bismuth Subsalicylate (Pepto-Bismol) 524 mg PO Q4 PRN PRN Reason: Diarrhea Donepezil HCl (Aricept) 5 mg PO HS [facility] Last Admin: 03/14/18 21:07 Dose: 5 mg Glipizide (Glucotrol) 10 mg PO ACB [facility] Last Admin: 03/15/18 08:00 Dose: 10 mg Haloperidol (Haldol) 1 mg PO Q4 PRN PRN Reason: Agitation Haloperidol Lactate (Haldol) 2 mg PO Q8 PRN PRN Reason: Agitation Last Admin: 03/07/18 08:29 Dose: 2 mg Insulin Detemir (Levemir) 8 units SC [facility] Last Admin: 03/14/18 21:07 Dose: 8 unit Levothyroxine Sodium (Synthroid) 50 mcg PO DAILY@0630 [facility] Last Admin: 03/15/18 06:29 Dose: 50 mcg Lorazepam (Ativan) 0.5 mg PO Q6 PRN PRN Reason: Anxiety Last Admin: 03/15/18 08:03 Dose: 0.5 mg Magnesium Hydroxide (Milk Of Magnesia) 30 ml PO HS PRN PRN Reason: Constipation Metformin HCl (Glucophage) 500 mg PO BIDWM [facility] Last Admin: 03/15/18 07:59 Dose: 500 mg Pantoprazole Sodium (Protonix Ec Tab) 40 mg PO DAILY [facility] Last Admin: 03/15/18 08:01 Dose: 40 mg Risperidone (Risperdal Tab) 2 mg PO BID [facility] Last Admin: 03/15/18 08:01 Dose: 2 mg Sitagliptin Phosphate (Januvia) 100 mg PO DAILY [facility] Last Admin: 03/15/18 08:00 Dose: 100 mg Trazodone HCl (Desyrel) 50 mg PO HS PRN PRN Reason: Insomnia - Labs Labs: 02/20/18 05:45 02/20/18 05:45 Assessment and Plan - Assessment and Plan (Free Text) Assessment: Patient was personally seen and examined by me in rounds with residents. Available labs and diagnostic data reviewed. Case, Patient's condition and management plan discussed with residents in rounds. Agree with resident's progress note. Plan: As ordered.
[2018-03-15] MEDS: Insulin Detemir 100 Units/ml Inj SC SCH (21:28)
[2018-03-16] MEDS: Levothyroxine 50 MCG TAB PO SCH (06:03)
[2018-03-16] MEDS: Pantoprazole 40 mg EC Tab PO SCH (08:00)
--- NOTE | 2018-03-16 13:29 | PCM.PYCHPN ---
Psychiatric Progress Note - Psychiatric Progress Note Patient seen today, length of contact: Pt evaluated, case discussed w/ team, chart reviewed Patient Chief Complaint: pt seen in social area, staff report pt has been adherent with treatment, less irritable no prns received today, noted to be pacing in hallway at at times, staff report that pt is adherent with medication, attending some groups, psychiatrically appears stable, discharge planning in progress, plans are being formulated for pt to return with nurse's aide, meals on wheels, with psychiatric care in community, pt. has legal guardian Problems Identified/Issues Discussed: alteration in cognition alteration in self care Medical Problems: per chart Diagnostic Results: per psychiatry per medicine per long term care social worker per recreational therapy DSM 5 Symptoms Update: baseline cognitive status, Medication Change: No Medical Record Reviewed: Yes Consults ordered or reviewed: pt being followed by dr jenkins Mental Status Examination - Cognitive Function Orientation: Person, Place, Situation, Time Memory: Impaired Attention: Poor Concentration: Poor Association: Loose Fund of Knowledge: Poor - Mood Mood: Neutral - Affect Affect: Broad - Speech Speech: Appropriate - Formal Thought Process Formal Thought Process: Loosening of associations - Suicidal Ideation Suicidal Ideation: No - Homicidal Ideation Homicidal Ideation: No Goal/Treatment Plan - Goal/Treatment Plan Need for Continued Stay: Severe functional impairment Progress Toward Problem(s) and Goals/Treatment Plan: inpt adm adjust meds per status discharge planning in progress pending to return to community with home health services, nutritional support and opd psychiatric care Estimated Date of D/C: 03/20/18 - Smoking Cessation Smoking Cessation Initiated: No Reason for not providing: pt defers
[2018-03-16] MEDS: Insulin Detemir 100 Units/ml Inj SC SCH (21:04)
[2018-03-17] MEDS: Levothyroxine 50 MCG TAB PO SCH (06:04)
[2018-03-17] MEDS: Pantoprazole 40 mg EC Tab PO SCH (08:09)
--- NOTE | 2018-03-17 08:11 | PN ---
DATE: 03/17/2018 SUBJECTIVE: The patient seen and examined. Interim events noted. The patient remains in geropsych unit. Awake, responsive. Denies any specific complaint. No specific issue reported by nursing staff. PHYSICAL EXAMINATION: GENERAL: The patient is in no acute distress. VITAL SIGNS: Stable. Physical exam is essentially unchanged. DIAGNOSTIC DATA: Available diagnostic data reviewed. Accu-Cheks are acceptable. ASSESSMENT: Overall, the patient is clinically stable. PLAN: As ordered. Agustin Alvarez MD
--- NOTE | 2018-03-17 19:55 | PCM.PYCHPN ---
Psychiatric Progress Note - Psychiatric Progress Note Patient seen today, length of contact: Pt evaluated, case discussed w/ team, chart reviewed Patient Chief Complaint: pt seen in social area, staff report pt has been adherent with treatment, less irritable no prns received today, noted to be pacing in hallway at at times, staff report that pt is adherent with medication, attending some groups, psychiatrically appears stable, discharge planning in progress, plans are being formulated for pt to return with nurse's aide, meals on wheels, with psychiatric care in community, pt. has legal guardian Problems Identified/Issues Discussed: alteration in cognition alteration in self care Medical Problems: per chart Diagnostic Results: per psychiatry per medicine per social science teacher per recreational therapy DSM 5 Symptoms Update: appears stable in terms of mood and cognition Medication Change: No Medical Record Reviewed: Yes Consults ordered or reviewed: pt seen by dr sims Mental Status Examination - Cognitive Function Orientation: Person, Place, Situation, Time Memory: Impaired Attention: Poor Concentration: Poor Association: Loose Fund of Knowledge: Poor Decription of patient's judgement and insights: impaired - Mood Mood: Neutral - Affect Affect: Broad - Speech Speech: Appropriate - Formal Thought Process Formal Thought Process: Loosening of associations - Suicidal Ideation Suicidal Ideation: No - Homicidal Ideation Homicidal Ideation: No Goal/Treatment Plan - Goal/Treatment Plan Need for Continued Stay: Severe functional impairment Progress Toward Problem(s) and Goals/Treatment Plan: inpt adm adjust meds per status discharge planning in progress pending to return to community with home health services, nutritional support and opd psychiatric care scheduled for [id number] Estimated Date of D/C: 03/20/18 - Smoking Cessation Smoking Cessation Initiated: No Reason for not providing: defers
[2018-03-17] MEDS: Insulin Detemir 100 Units/ml Inj SC SCH (21:05)
[2018-03-18] MEDS: Levothyroxine 50 MCG TAB PO SCH (05:54)
[2018-03-18] MEDS: Pantoprazole 40 mg EC Tab PO SCH (09:00)
--- NOTE | 2018-03-18 09:23 | PCM.PYCHPN ---
Psychiatric Progress Note - Psychiatric Progress Note Patient seen today, length of contact: Pt evaluated, case discussed w/ team, chart reviewed Patient Chief Complaint: Inability to care for self Problems Identified/Issues Discussed: No new events. Pt reports that his mood is stable. He denies acute AH/VH/paranoia/delusions. Guardian was appointed, discharge tentatively arranged for 03/20/17, once all home services are in place. Medication Change: No Medical Record Reviewed: Yes Consults ordered or reviewed: Medicine consult Mental Status Examination - Cognitive Function Orientation: Person, Place, Situation, Time Memory: Impaired Attention: Poor Concentration: Poor Association: Loose Fund of Knowledge: Poor Decription of patient's judgement and insights: Chronic limitation in I/J due to neurocognitive impairment - Mood Mood: Neutral - Affect Affect: Broad - Speech Speech: Appropriate - Formal Thought Process Formal Thought Process: Loosening of associations Psychotic Thoughts and Behaviors: Denies AH/VH/paranoia/delusions - Suicidal Ideation Suicidal Ideation: No - Homicidal Ideation Homicidal Ideation: No Goal/Treatment Plan - Goal/Treatment Plan Need for Continued Stay: Severe functional impairment Progress Toward Problem(s) and Goals/Treatment Plan: Schizophrenia, Dementia -Continue Risperdal 2 mg PO Q12 -Continue Aricept 5 mg PO HS -Medical evaluation -Individual and group therapy -Disposition planning- Guardian was appointed, discharge tentatively arranged for 03/20/17, once all home services are in place. Estimated Date of D/C: 03/20/18
--- NOTE | 2018-03-18 13:17 | PN ---
DATE: 03/18/2018 SUBJECTIVE: The patient seen and examined. Interim events noted. The patient remains in regular medical floor geropsych unit. Awake, responsive. Eating breakfast. Denies any specific medical complaint. No specific issue reported by nursing staff. PHYSICAL EXAMINATION: GENERAL: The patient is in no acute distress. VITAL SIGNS: Stable. Physical exam is essentially unchanged. DIAGNOSTIC DATA: Available diagnostic data reviewed. ASSESSMENT AND PLAN: Overall, the patient's general medical condition is stable. Plan as ordered. Agustin Alvarez MD
[2018-03-18] MEDS: Insulin Detemir 100 Units/ml Inj SC SCH (21:04)
[2018-03-19] MEDS: Levothyroxine 50 MCG TAB PO SCH (05:45)
--- NOTE | 2018-03-19 08:10 | CP.PCM.PN ---
<Cairo - Last Filed: 03/19/18 08:28> Subjective - Date & Time of Evaluation Date of Evaluation: 03/19/18 Time of Evaluation: 08:00 - Subjective Subjective: Patient seen and examined this morning. Patient was eating breakfast and not in acute distress. No acute overnight event. Stable vitals, blood glucose is stable. Denies any acute complaints or concerns. Objective - Vital Signs/Intake and Output Vital Signs (last 24 hours): Temp Pulse Resp BP Pulse Ox 98.1 F 94 H 19 118/72 03/19/18 06:00 03/19/18 06:00 03/19/18 06:00 03/19/18 06:00 - Medications Medications: Current Medications Acetaminophen (Tylenol 325mg Tab) 650 mg PO Q4 PRN PRN Reason: Pain, moderate (4-7) Last Admin: 03/19/18 01:02 Dose: 650 mg Aspirin (Aspirin Chewable) 81 mg PO DAILY [facility] Last Admin: 03/18/18 08:59 Dose: 81 mg Donepezil HCl (Aricept) 5 mg PO HS [facility] Last Admin: 03/18/18 21:04 Dose: 5 mg Glipizide (Glucotrol) 10 mg PO ACB [facility] Last Admin: 03/18/18 09:00 Dose: 10 mg Haloperidol (Haldol) 1 mg PO Q4 PRN PRN Reason: Agitation Insulin Detemir (Levemir) 8 units SC HS [facility] Last Admin: 03/18/18 21:04 Dose: 8 unit Levothyroxine Sodium (Synthroid) 50 mcg PO DAILY@0630 [facility] Last Admin: 03/19/18 05:45 Dose: 50 mcg Lorazepam (Ativan) 0.5 mg PO Q6 PRN PRN Reason: Anxiety Last Admin: 03/15/18 08:03 Dose: 0.5 mg Magnesium Hydroxide (Milk Of Magnesia) 30 ml PO HS PRN PRN Reason: Constipation Metformin HCl (Glucophage) 500 mg PO BIDWM [facility] Last Admin: 03/18/18 17:46 Dose: 500 mg Pantoprazole Sodium (Protonix Ec Tab) 40 mg PO DAILY [facility] Last Admin: 03/18/18 09:00 Dose: 40 mg Risperidone (Risperdal Tab) 2 mg PO BID [facility] Last Admin: 03/18/18 17:46 Dose: 2 mg Sitagliptin Phosphate (Januvia) 100 mg PO DAILY [facility] Last Admin: 03/18/18 09:00 Dose: 100 mg - Labs Labs: 02/20/18 05:45 02/20/18 05:45 - Constitutional Appears: Non-toxic, Unkempt - Head Exam Head Exam: NORMAL INSPECTION - Eye Exam Eye Exam: Normal appearance - Neck Exam Neck Exam: Normal Inspection - Respiratory Exam Respiratory Exam: NORMAL BREATHING PATTERN - Cardiovascular Exam Cardiovascular Exam: REGULAR RHYTHM, +S1, +S2 - GI/Abdominal Exam GI & Abdominal Exam: Soft, Normal Bowel Sounds. absent: Tenderness - Extremities Exam Extremities Exam: Normal Inspection. absent: Calf Tenderness - Neurological Exam Neurological Exam: Alert, Awake - Psychiatric Exam Psychiatric exam: Normal Affect, Normal Mood - Skin Skin Exam: Normal Color Assessment and Plan - Assessment and Plan (Free Text) Assessment: 72 year old male hx schizoaffective disorder, dementia and DM admitted to GeroPsych unit. Anticipate discharge tomorrow with home health aide service. Plan: Continue current primary management by psychiatric team Pt remains stable. Rest of the plan as ordered Patient seen, examined and plan d/w Dr. Kim Neves, pgy-2 <Agustin Alvarez - Last Filed: 03/20/18 10:38> Objective - Vital Signs/Intake and Output Vital Signs (last 24 hours): Temp Pulse Resp BP Pulse Ox 98.1 F 90 18 131/71 03/20/18 05:40 03/20/18 05:40 03/20/18 05:40 03/20/18 05:40 - Medications Medications: Current Medications Aspirin (Aspirin Chewable) 81 mg PO DAILY [facility] Last Admin: 03/20/18 09:16 Dose: 81 mg Atorvastatin Calcium (Lipitor) 20 mg PO DAILY [facility] Last Admin: 03/20/18 09:20 Dose: 20 mg Donepezil HCl (Aricept) 5 mg PO HS [facility] Last Admin: 03/19/18 21:51 Dose: 5 mg Glipizide (Glucotrol) 10 mg PO ACB [facility] Last Admin: 03/20/18 09:17 Dose: 10 mg Insulin Detemir (Levemir) 8 units SC HS [facility] Last Admin: 03/19/18 21:52 Dose: 8 unit Levothyroxine Sodium (Synthroid) 50 mcg PO DAILY@0630 [facility] Last Admin: 03/20/18 06:22 Dose: 50 mcg Metformin HCl (Glucophage) 500 mg PO BIDWM [facility] Last Admin: 03/20/18 09:16 Dose: 500 mg Pantoprazole Sodium (Protonix Ec Tab) 40 mg PO DAILY [facility] Last Admin: 03/20/18 09:18 Dose: 40 mg Risperidone (Risperdal Tab) 2 mg PO BID [facility] Last Admin: 03/20/18 09:18 Dose: 2 mg Sitagliptin Phosphate (Januvia) 100 mg PO DAILY [facility] Last Admin: 03/20/18 09:17 Dose: 100 mg - Labs Labs: 02/20/18 05:45 02/20/18 05:45 Assessment and Plan - Assessment and Plan (Free Text) Assessment: Patient was personally seen and examined by me in rounds with residents. Available labs and diagnostic data reviewed. Case, Patient's condition and management plan discussed with residents in rounds. Agree with resident's progress note. Plan: As ordered.
[2018-03-19] MEDS: Pantoprazole 40 mg EC Tab PO SCH (08:51)
[2018-03-19] MEDS ORDERED: Insulin Regular 100 units/ml SC STA (16:06)
[2018-03-19] MEDS: Insulin Detemir 100 Units/ml Inj SC SCH (21:52)
[2018-03-20 05:40] VITALS: BP 131/71; PULSE 90; RESP 18; TEMP 98.1
[2018-03-20] MEDS: Levothyroxine 50 MCG TAB PO SCH (06:22)
--- NOTE | 2018-03-20 07:30 | CP.PCM.PN ---
<EdwardsSultan david - Last Filed: 03/20/18 07:38> Subjective - Date & Time of Evaluation Date of Evaluation: 03/20/18 Time of Evaluation: 07:10 - Subjective Subjective: Patient seen and examined with Dr. Alvarez this morning. No acute overnight event. Stable vitals Denies any acute complaints or concerns. Objective - Vital Signs/Intake and Output Vital Signs (last 24 hours): Temp Pulse Resp BP Pulse Ox 98.1 F 90 18 131/71 03/20/18 05:40 03/20/18 05:40 03/20/18 05:40 03/20/18 05:40 - Medications Medications: Current Medications Acetaminophen (Tylenol 325mg Tab) 650 mg PO Q4 PRN PRN Reason: Pain, moderate (4-7) Last Admin: 03/19/18 01:02 Dose: 650 mg Aspirin (Aspirin Chewable) 81 mg PO DAILY [facility] Last Admin: 03/19/18 08:51 Dose: 81 mg Donepezil HCl (Aricept) 5 mg PO HS [facility] Last Admin: 03/19/18 21:51 Dose: 5 mg Glipizide (Glucotrol) 10 mg PO ACB [facility] Last Admin: 03/19/18 08:51 Dose: 10 mg Haloperidol (Haldol) 1 mg PO Q4 PRN PRN Reason: Agitation Insulin Detemir (Levemir) 8 units SC HS [facility] Last Admin: 03/19/18 21:52 Dose: 8 unit Levothyroxine Sodium (Synthroid) 50 mcg PO DAILY@0630 [facility] Last Admin: 03/20/18 06:22 Dose: 50 mcg Lorazepam (Ativan) 0.5 mg PO Q6 PRN PRN Reason: Anxiety Last Admin: 03/15/18 08:03 Dose: 0.5 mg Magnesium Hydroxide (Milk Of Magnesia) 30 ml PO HS PRN PRN Reason: Constipation Metformin HCl (Glucophage) 500 mg PO BIDWM [facility] Last Admin: 03/19/18 16:50 Dose: 500 mg Pantoprazole Sodium (Protonix Ec Tab) 40 mg PO DAILY [facility] Last Admin: 03/19/18 08:51 Dose: 40 mg Risperidone (Risperdal Tab) 2 mg PO BID [facility] Last Admin: 03/19/18 16:50 Dose: 2 mg Sitagliptin Phosphate (Januvia) 100 mg PO DAILY [facility] Last Admin: 03/19/18 08:51 Dose: 100 mg - Labs Labs: 02/20/18 05:45 02/20/18 05:45 - Constitutional Appears: No Acute Distress, Unkempt - Head Exam Head Exam: NORMAL INSPECTION - Eye Exam Eye Exam: Normal appearance - Respiratory Exam Respiratory Exam: Clear to Ausculation Bilateral, NORMAL BREATHING PATTERN. absent: Rhonchi, Wheezes - Cardiovascular Exam Cardiovascular Exam: REGULAR RHYTHM, +S1, +S2 - GI/Abdominal Exam GI & Abdominal Exam: Soft, Normal Bowel Sounds. absent: Tenderness - Extremities Exam Extremities Exam: Normal Inspection - Neurological Exam Neurological Exam: Alert, Awake, Oriented x3 - Psychiatric Exam Psychiatric exam: Normal Affect, Normal Mood - Skin Skin Exam: Normal Color Assessment and Plan - Assessment and Plan (Free Text) Assessment: 72 year old male hx schizoaffective disorder, dementia and DM admitted to GeroPsych unit. Anticipate discharge to home today. Plan: Continue current primary management by psychiatric team Pt remains stable. Continue with same DMII medications including Levemir of 8 units qhs Patient is medically stable to discharge home Advised follow up with Dr. Alvarez in 1 week Patient seen, examined and plan d/w Dr. Kim Neves, pgy-2 <Agustin Alvarez - Last Filed: 03/20/18 10:37> Objective - Vital Signs/Intake and Output Vital Signs (last 24 hours): Temp Pulse Resp BP Pulse Ox 98.1 F 90 18 131/71 03/20/18 05:40 03/20/18 05:40 03/20/18 05:40 03/20/18 05:40 - Medications Medications: Current Medications Aspirin (Aspirin Chewable) 81 mg PO DAILY [facility] Last Admin: 03/20/18 09:16 Dose: 81 mg Atorvastatin Calcium (Lipitor) 20 mg PO DAILY [facility] Last Admin: 03/20/18 09:20 Dose: 20 mg Donepezil HCl (Aricept) 5 mg PO [facility] Last Admin: 03/19/18 21:51 Dose: 5 mg Glipizide (Glucotrol) 10 mg PO ACB [facility] Last Admin: 03/20/18 09:17 Dose: 10 mg Insulin Detemir (Levemir) 8 units SC [facility] Last Admin: 03/19/18 21:52 Dose: 8 unit Levothyroxine Sodium (Synthroid) 50 mcg PO DAILY@0630 [facility] Last Admin: 03/20/18 06:22 Dose: 50 mcg Metformin HCl (Glucophage) 500 mg PO BIDWM [facility] Last Admin: 03/20/18 09:16 Dose: 500 mg Pantoprazole Sodium (Protonix Ec Tab) 40 mg PO DAILY [facility] Last Admin: 03/20/18 09:18 Dose: 40 mg Risperidone (Risperdal Tab) 2 mg PO BID [facility] Last Admin: 03/20/18 09:18 Dose: 2 mg Sitagliptin Phosphate (Januvia) 100 mg PO DAILY [facility] Last Admin: 03/20/18 09:17 Dose: 100 mg - Labs Labs: 02/20/18 05:45 02/20/18 05:45 Assessment and Plan - Assessment and Plan (Free Text) Assessment: Patient was personally seen and examined by me in rounds with residents. Available labs and diagnostic data reviewed. Case, Patient's condition and management plan discussed with residents in rounds. Agree with resident's progress note. Plan: As ordered.
--- NOTE | 2018-03-20 08:03 | PCM.PYCHDC ---
Mental Status Examination - Mental Status Examination Orientation: Person, Place, Situation, Time Memory: Impaired Mood: Neutral Affect: Broad Association: Loose Fund of Knowledge: Poor Formal Thought Process: Loosening of associations Description of patient's judgement and insight: Chronic limitation in I/J due to neurocognitive impairment; patient is now under the care of a legal guardian Psychotic Thoughts and Behaviors: Denies AH/VH/paranoia/delusions Suicidal Ideation: No Current Homicidal Ideation?: No Discharge Summary - Discharge Note Reason for Hospitalization: HPI:72 yo male w/ history of schizophrenia initially BIB [facility] for bizarre behavior in his apt building. He was observed talking to himself and taking off his clothes. On initial psychiatric admission he presented acutely disheveled w/ loose and disorganized speech. He had not been compliant with treatment or medications. Patient was stabilized on the psychiatric unit and treated w/ Risperdal, but he continued to have poor insight/judgment and inability to care for self due to neurocognitive impairment. Guardianship process of was initiated. Patient developed pneumonia, transferred to the medical unit for acute medical treatment and transferred back to the psychiatric unit when he became medically stable. PPHx: Multiple past psychiatric admissions for schizophrenia PMHx: CAD, DM ALL: NKDA SHx: Lived in an apt alone, denies drug/etoh/cig use Consultations:: List each consultation separately and include: 1. Reason for request. 2. Findings. 3. Follow-up Consultations: Medicine consult Summary of Hospital Course include:: 1. Description of specific treatment plan utilized for patients during their course of treatmen. 2. Summarize the time- course for resolution of acute symptoms and/or regressed behaviors. 3. Describe issues identified and worked on during hospitalization. 4. Describe medication utilized. 5. Describe medical problems identified and treated. 6. Reassessment of suicide risk Summary of Hospital Course: Patient was admitted to the psychiatry unit. Individual and group therapy were provided. Patient was assigned a legal guardian during his admission due to the patient's chronic poor I/J and dementia. Patient will be discharged to home with home services and will be monitored by the legal guardian. Patient denies acute depression/anxiety/AH/VH/paranoia/delusions and is currently psychiatrically stable for discharge. See SW notes for details on discussions with legal guardian and services provided for the patient following discharge. - Diagnosis (1) Schizophrenia Current Visit: No Status: Chronic (2) Dementia Current Visit: No Status: Chronic - Final Diagnosis (DSM 5) Condition upon Discharge: STABLE DSM 5: Schizophrenia, Dementia Disposition: HOME/ ROUTINE Follow-up Treatment Plan: Schizophrenia, Dementia -Continue Risperdal 2 mg PO Q12 -Continue Aricept 5 mg PO HS -Medical medications as per medicine consult, Dr. Alvarez -Individual and group therapy -Legal guardian was appointed; patient to be discharged to home with home services Prescriptions/Medication Reconciliation: Aspirin [Aspirin Chewable] 81 mg PO DAILY #30 chew Atorvastatin [Lipitor] 20 mg PO HS #30 tab Donepezil [Aricept] 5 mg PO HS #30 tab GlipiZIDE [Glucotrol] 10 mg PO DAILY #30 tab Insulin Detemir [Levemir] 8 units SC HS #1 vial Levothyroxine [Synthroid] 1 tab PO DAILY #30 tab Pantoprazole [Protonix EC Tab] 40 mg PO DAILY #30 ect Risperidone [Risperdal] 2 mg PO Q12 #60 tablet SITagliptin [Januvia] 100 mg PO DAILY #30 tab - Smoking Cessation Smoking Cessation Medication prescribed: No Reason for not providing: Not indicated - Antipsychotic Medications Pt discharged on 2 or more routine antipsychotic medications: No
[2018-03-20] MEDS: Pantoprazole 40 mg EC Tab PO SCH (09:18)
--- NOTE | 2018-03-20 11:27 | PCM.BM ---
Treatment Plan Problems - Problems identified on initial assessmt Altered Thought Process Date Initiated: 01/07/18 Time Initiated: 19:11 Assessment reference: NA Status: Active Knowledge Deficit: Diabetes Mellitus Time Initiated: 14:41 Agitated Behavior Time Initiated: 14:45 Treatment assets and liabiliti Patient Assests: adapts well, cooperative, negotiates basic needs Patient Liabilities: live alone, poor support system, imparied memory - Milieu Protocol Maintain good personal hygiene: daily Encourage regular showers, daily Remind patient to perform daily oral care, daily Assist patient to perform ADL's Conduct patient checks and document Observation sheet: Q15 minutes Maintain personal safety: every shift Educate patient to report safety concerns to staff, every shift Monitor environment for contraband/sharps Medication safety: Monitor for expected outcome, potential side effects: every shift, Assess barriers to learning: every shift, Assess readiness for medication education: every shift Milieu Narrative: Schizophrenia, Dementia -Continue Risperdal 2 mg PO Q12 -Continue Aricept 5 mg PO HS -Medical medications as per medicine consult, Dr. Alvarez -Individual and group therapy -Legal guardian was appointed; patient to be discharged to home with home services Family Contact Family involvement: No known Family/SO - Outside Agency Kathia Anguiano Esq Care involvment: Information-sharing Agency contact number: [phone] - Goals for Treatment Patient goals for treatment: Pt to be encouraged to attend activity and clinical groups 3-5x per week to decrease symptoms of paranoia, delusions and employ reality testing. Pt to be encouraged to participate in group milieu to develop coping skills to reduce psychiatric hospitalizations and further decompensation. Coordinate discharge resources needs by providing referral for psychiatric treatment follow up in the community. Discharge/Continuing Care - Education Needs Education Needs: Patient Medication, Patient Diagnosis/Disease Process, Patient Coping Skills, Patient Placement options, Patient Community resources, Patient Activities of Daily Living, Patient Nutrition, Patient Uses of Medical Equipment, Patient Health Practices/Safety, Patient Personal Hygiene/Grooming, Patient Aftercare Safety Plan - Discharge Discharge Criteria: Tolerates medication w/o severe side effects, Free of agitation, Normal sleep pattern, Ability to care for self, Reduction of target symptoms Discharge to:: Home - Additional Comments 01/09/18 13:22 Pt seen and discussed in team meeting. Reason for return to [facility] reviewed and discussed. Pt reported feeling "alright." Pt reported that he was on the medical unit due to "blood problems." Pt expressed feeling gratitude for being able to return to [facility] and continue psychiatric treatment. Karate Teacher informed pt that guardianship was initiated and pending court hearing is for February 21, 2018. Pt verbalized understanding of same and reported that he has the paperwork in his room. Pt's medications reviewed and discussed. Pt in agreement to continue tx [facility] and prescribed medications. Karate Teacher will continue to follow case. - Treatment Team Participation Patient/Family/SO Statement: Schizophrenia, Dementia -Continue Risperdal 2 mg PO Q12 -Continue Aricept 5 mg PO HS -Medical medications as per medicine consult, Dr. Alvarez -Individual and group therapy -Legal guardian was appointed; patient to be discharged to home with home services Discussed with Family/SO: No Was Patient/Family/SO present at Treatment Team Meeting: Yes Treatment Plan Review Patient participation: Yes Family/SO/Caregiver participation: No Additional Comments: Pt seen and discussed in team meeting. Pt's case reviewed and discussed. Pt aware that eh is scheduled for discharge this morning and returning home. Pt informed that [facility] renal case manager will be at his apartment building awaiting his arrival. Karate Teacher also explained to pt that a RN will visit him at home weekly and that a home health aide (homemaker) will visit him daily. Karate Teacher also reviewed after care appointment for medication management with [facility]. Pt verbalized understanding of same. Pt's medication reviewed and discussed at length. Psycho-education regarding importance of mediation and tx compliance reviewed with pt. Pt reported having no questions or concerns with returning home. - Problem Altered Thought Process Date Initiated: 01/07/18 Time Initiated: 19:11 Progress toward outcomes: unchanged (Pt continues to display poor insight and judgment into his mental illness. Pt is intermittently forgetful and confused.) Knowledge Deficit: Diabetes Mellitus Date Initiated: 02/14/18 Time Initiated: 14:41 Progress toward outcomes: improved (Pt presents with imporved insight int dx. Pt reported he is aware of the food intake that he needs to consume and will have the homemaker prep his meals.) Agitated Behavior Date Initiated: 02/09/18 Time Initiated: 14:45 Progress toward outcomes: resolved (Pt has not displayed any aggression or vi olant bx's on the unit.) - Discharge / Continuing Care Discharge to:: Home Behavioral Health Services: Outpatient therapy, Home health care, Other (Meal on Wheels) Health Needs: Follow up care/test, Doctor appointments, Special equipment, Nutritional, Medications/Rx, Educational, Recreational/Social
== END 2018-03-20 12:45 | disposition home health service (06) | DRG 885 ==
LOC: H.STEP 18:44
PROVIDERS: ADMIT Psychiatry & Neurology Psychiatry; ATTEND Psychiatry & Neurology Psychiatry
PROC: GZHZZZZ Group Psychotherapy (ICD-10-PCS; principal; 2018-01-07)
PROC: GZ58ZZZ Individual Psychotherapy, Cognitive-Behavioral (ICD-10-PCS; 2018-01-07)
PROC: GZ56ZZZ Individual Psychotherapy, Supportive (ICD-10-PCS; 2018-01-08)
DX: F25.9 Schizoaffective disorder, unspecified (principal); F02.80 Dementia in other diseases classified elsewhere, unspecified severity, without behavioral disturbance, psychotic disturbance, mood disturbance, and anxiety; G30.9 Alzheimer's disease, unspecified; F01.50 Vascular dementia, unspecified severity, without behavioral disturbance, psychotic disturbance, mood disturbance, and anxiety; I25.10 Atherosclerotic heart disease of native coronary artery without angina pectoris; E11.9 Type 2 diabetes mellitus without complications; Z74.8 Other problems related to care provider dependency; Z91.14 Patient's other noncompliance with medication regimen; Z91.19 Patient's noncompliance with other medical treatment and regimen; Z87.01 Personal history of pneumonia (recurrent); Z87.891 Personal history of nicotine dependence

== ENCOUNTER 2018-05-01 21:25 | Inpatient (IN) | payer OTHER, MEDICAID ==
[2018-05-01 21:26] VITALS: BMI 23.0
[2018-05-01] MEDS ORDERED: Sodium Chloride 0.9% 1,000 ML IV STA (22:47)
[2018-05-01 23:10] LABS: BASO # 0.1 K/uL (0.0-0.2); BASO % 1.1 % (0.0-2.0); EOS # 0.3 K/uL (0.0-0.7); EOS % 3.3 % (0.0-4.0); HEMOGLOBIN 13.2 g/dL (12.0-18.0); LYMPH # 2.1 K/uL (1.0-4.3); LYMPH % 22.9 % (20.0-40.0); MEAN CELL VOLUME 86.7 fl (80.0-94.0); MEAN CORPUSCULAR HEMOGLOBIN 28.8 pg (27.0-31.0); MEAN CORPUSCULAR HGB CONC 33.2 g/dL (33.0-37.0); MEAN PLATELET VOLUME 10.2 fl (7.2-11.7); MONO # 0.5 K/uL (0.0-0.8); MONO % 5.8 % (0.0-10.0); NEUT # 6.3 K/uL (1.8-7.0); NEUT % 66.9 % (50.0-75.0); NRBC % 0.1 % (0.0-0.0); RBC 4.58 Mil/uL (4.40-5.90); RED CELL DISTRIBUTION WIDTH 14.1 % (11.5-14.5); WHITE BLOOD COUNT 9.4 K/uL (4.8-10.8)
[2018-05-01 23:23] LABS: BLOOD UREA NITROGEN 15 mg/dl (9-20); CALCIUM 8.7 mg/dL (8.4-10.2); GFR NON-AFRICAN AMERICAN > 60
--- NOTE | 2018-05-01 23:29 | ED PDOC ---
HPI: Psych/Substance Abuse Time Seen by Provider: 05/01/18 21:52 Chief Complaint (Nursing): Psychiatric Evaluation Chief Complaint (Provider): psych eval History Per: EMS Additional Complaint(s): 72 y/o male brought in by EMS for psych eval. As per EMS, mobile crisis was called to patient's home due to bizarre behavior and started "banging on his chest" and stated he wanted to be placed in the electric chair. Unknown if patient compliant with medications. Patient states he was talking about the armed forces and then was brought here. Patient denies suicidal/homicidal ideations, acute physical complaints. Past Medical History Reviewed: Historical Data, Nursing Documentation, Vital Signs Vital Signs: Last Vital Signs Temp 98.1 F 05/01/18 21:31 Pulse 79 05/01/18 21:31 Resp 16 05/01/18 21:31 BP 102/66 05/01/18 21:31 Pulse Ox 99 05/01/18 21:31 - Medical History PMH: Alzheimer's Disease, Bipolar Disorder, Dementia, Diabetes, Pneumonia, Schizophrenia Denies: Hepatitis, HIV, HTN, Chronic Kidney Disease, Seizures, Sexually Transmitted Disease - Family History Family History: States: Unknown Family Hx - Home Medications Home Medications: Ambulatory Orders Medication Instructions Recorded Aspirin [Aspirin Chewable] 81 mg PO DAILY #30 chew 03/19/18 Donepezil [Aricept] 5 mg PO HS #30 tab 03/19/18 GlipiZIDE [Glucotrol] 10 mg PO DAILY #30 tab 03/19/18 Insulin Detemir [Levemir] 8 units SC HS #1 vial 03/19/18 Levothyroxine [Synthroid] 1 tab PO DAILY #30 tab 03/19/18 Pantoprazole [Protonix EC Tab] 40 mg PO DAILY #30 ect 03/19/18 Risperidone [Risperdal] 2 mg PO Q12 #60 tablet 03/19/18 SITagliptin [Januvia] 100 mg PO DAILY #30 tab 03/19/18 Atorvastatin [Lipitor] 20 mg PO HS #30 tab 03/20/18 - Allergies Allergies/Adverse Reactions: Allergies Allergy/AdvReac Type Severity Reaction Status Date / Time No Known Allergies Allergy Verified 05/01/18 21:30 Review of Systems ROS Statement: Except As Marked, All Systems Reviewed And Found Negative Psych: Positive for: Psychosis, Suicidal ideation Physical Exam - Reviewed Nursing Documentation Reviewed: Yes Vital Signs Reviewed: Yes - Physical Exam Appears: Positive for: Well, Non-toxic, No Acute Distress Head Exam: Positive for: ATRAUMATIC, NORMAL INSPECTION, NORMOCEPHALIC Skin: Positive for: Normal Color Eye Exam: Positive for: Normal appearance ENT: Positive for: Normal ENT Inspection Cardiovascular/Chest: Positive for: Regular Rate, Rhythm Respiratory: Positive for: Normal Breath Sounds Gastrointestinal/Abdominal: Positive for: Normal Exam Back: Positive for: Normal Inspection Extremity: Positive for: Normal ROM Neurologic/Psych: Positive for: Alert, Oriented (x2) - Laboratory Results Result Diagrams: 05/01/18 23:03 05/02/18 01:22 - ECG ECG: Positive for: Viewed By Me (reviewed by ED attending) ECG Rhythm: Positive for: Sinus Rhythm O2 Sat by Pulse Oximetry: 99 - Radiology X-Ray: Viewed By Me X-Ray Interpretation: No Acute Disease - Progress ED Course And Treament: -accucheck -cbc -cmp -alcohol -urinalysis -urine drug screen -ekg -cxr -crisis eval Repeat accucheck 250 Patient evaluated by hospital food service worker; to be admitted pending contact with patient's assigned guardian consent Medical Decision Making Medical Decision Making: Patient medically stable for psych admission Disposition - Clinical Impression Clinical Impression: Schizophrenia - Patient ED Disposition Is Patient to be Admitted: Yes - Disposition Disposition Time: 06:00 Condition: STABLE
[2018-05-01 23:41] LABS: ALBUMIN 3.9 g/dL (3.5-5.0); ALT/SGPT 18 U/L (21-72); AST/SGOT 35 U/L (17-59)
[2018-05-02 00:32] LABS: SQUAMOUS EPITHIAL < 1 /hpf (0-5); URINE BILIRUBIN NEGATIVE (NEGATIVE); URINE BLOOD NEGATIVE (NEGATIVE); URINE CLARITY CLEAR (Clear); URINE COLOR STRAW (YELLOW); URINE GLUCOSE (UA) >=500 mg/dL (NEGATIVE); URINE LEUKOCYTE ESTERASE NEG Leu/uL (Negative); URINE PROTEIN NEGATIVE (NEGATIVE); URINE UROBILINOGEN 0.2-1.0 mg/dL (0.2-1.0)
[2018-05-02 00:51] LABS: BARBITURATES, UR NEGATIVE (NEGATIVE); BENZODIAZEPINES, UR NEGATIVE (NEGATIVE); OPIATES, UR NEGATIVE (NEGATIVE); PHENCYCLIDINE, UR NEGATIVE (NEGATIVE)
--- NOTE | 2018-05-02 08:04 | RAD ---
Date of service: 05/01/2018 HISTORY: clearance COMPARISON: Chest radiographs 01/07/2018. FINDINGS: LUNGS: No active pulmonary disease. PLEURA: No significant pleural effusion identified, no pneumothorax apparent. CARDIOVASCULAR: No aortic atherosclerotic calcification present. Normal cardiac size. No pulmonary vascular congestion. OSSEOUS STRUCTURES: No significant abnormalities. VISUALIZED UPPER ABDOMEN: Normal. OTHER FINDINGS: None. IMPRESSION: No interval acute cardiopulmonary disease appreciated. Prior left upper lobe infiltrate has resolved in the interval.
--- NOTE | 2018-05-02 08:52 | CARD ---
APPROVED REPORT Date of service: 05/01/2018 EKG Measurement Heart [id number] <Conclusion> Normal sinus rhythm Normal ECG
--- NOTE | 2018-05-02 11:01 | CP.PCM.CON ---
History of Present Illness - History of Present Illness History of Present Illness: ER face to face evaluation pt is 72 ys old male with previous diagnosis of schizoaffective disorder brought to ER by police due to exhibiting disorganized behaviour pt on evaluation, confused believing he is in his apartment, speech is loud and pressured with loose association and disorganized thought process pt appears internally preoccupied , paranoid, has no insight into illness does not believe he needs any medications Past Patient History - Past Medical History & Family History Past Medical History?: Yes - Past Social History Smoking Status: Former Smoker - CARDIAC Hx Hypertension: No - PULMONARY Hx Pneumonia: Yes - NEUROLOGICAL Hx Alzheimer's Disease: Yes Hx Dementia: Yes Hx Seizures: No - HEENT Hx HEENT Problems: No - RENAL Hx Chronic Kidney Disease: No - ENDOCRINE/METABOLIC Hx Endocrine Disorders: Yes Hx Diabetes Mellitus Type 2: Yes Hx Hypothyroidism: Yes - HEMATOLOGICAL/ONCOLOGICAL Hx Human Immunodeficiency Virus (HIV): No - INTEGUMENTARY Hx Dermatological Problems: No - MUSCULOSKELETAL/RHEUMATOLOGICAL Hx Musculoskeletal Disorders: Yes Hx Falls: Yes - GASTROINTESTINAL Hx Gastrointestinal Disorders: No - GENITOURINARY/GYNECOLOGICAL Hx Sexually Transmitted Disorders: No - PSYCHIATRIC Hx Bipolar Disorder: Yes Hx Schizophrenia: Yes - SURGICAL HISTORY Hx Surgeries: Yes Other/Comment: Hx nose surgery in his youth stated had surgery for nosebleeding - ANESTHESIA Hx Anesthesia: No Hx Anesthesia Reactions: No Hx Malignant Hyperthermia: No Meds Allergies/Adverse Reactions: Allergies Allergy/AdvReac Type Severity Reaction Status Date / Time No Known Allergies Allergy Verified 05/01/18 21:30 Results - Vital Signs Recent Vital Signs: Last Vital Signs Temp 98.0 F 05/02/18 05:35 Pulse 69 05/02/18 05:35 Resp 18 05/02/18 05:35 BP 131/70 05/02/18 05:35 Pulse Ox 99 05/02/18 05:56 - Labs Result Diagrams: 05/01/18 23:03 05/02/18 01:22 Labs: Laboratory Results - last 24 hr 05/01/18 05/01/18 05/01/18 22:37 23:03 23:03 WBC 9.4 RBC 4.58 Hgb 13.2 Hct 39.7 MCV 86.7 D MCH 28.8 MCHC 33.2 RDW 14.1 Plt Count 177 MPV 10.2 Neut % (Auto) 66.9 Lymph % (Auto) 22.9 [place] % (Auto) 5.8 Eos % (Auto) 3.3 Baso % (Auto) 1.1 Neut # (Auto) 6.3 Lymph # (Auto) 2.1 [place] # (Auto) 0.5 Eos # (Auto) 0.3 Baso # (Auto) 0.1 Sodium 136 Potassium 5.5 H Chloride 99 Carbon Dioxide 25 Anion Gap 18 BUN 15 Creatinine 0.5 L Est GFR ( Amer) > 60 Est GFR (Non-Af Amer) > 60 POC Glucose (mg/dL) 315 H Random Glucose 349 H Calcium 8.7 Total Bilirubin 1.0 AST 35 ALT 18 L Alkaline Phosphatase 82 Total Protein 7.7 Albumin 3.9 Globulin 3.8 Albumin/Globulin Ratio 1.0 Urine Color Urine Clarity Urine pH Ur Specific [place] Urine Protein Urine Glucose (UA) Urine Ketones Urine Blood Urine Nitrate Urine Bilirubin Urine Urobilinogen Ur Leukocyte Esterase Urine RBC (Auto) Urine Microscopic WBC Ur Squamous Epith Cells Urine Opiates Screen Urine Methadone Screen Ur Barbiturates Screen Ur Phencyclidine Scrn Ur Amphetamines Screen U Benzodiazepines Scrn U Oth Cocaine Metabols U Cannabinoids Screen Alcohol, Quantitative < 10 05/02/18 05/02/18 05/02/18 00:18 00:18 01:21 WBC RBC Hgb Hct MCV MCH MCHC RDW Plt Count MPV Neut % (Auto) Lymph % (Auto) [place] % (Auto) Eos % (Auto) Baso % (Auto) Neut # (Auto) Lymph # (Auto) [place] # (Auto) Eos # (Auto) Baso # (Auto) Sodium Potassium Chloride Carbon Dioxide Anion Gap BUN Creatinine Est GFR ( Amer) Est GFR (Non-Af Amer) POC Glucose (mg/dL) 250 H Random Glucose Calcium Total Bilirubin AST ALT Alkaline Phosphatase Total Protein Albumin Globulin Albumin/Globulin Ratio Urine Color Straw Urine Clarity Clear Urine pH 7.0 Ur Specific [place] 1.018 Urine Protein Negative Urine Glucose (UA) >=500 Urine Ketones Negative Urine Blood Negative Urine Nitrate Negative Urine Bilirubin Negative Urine Urobilinogen 0.2-1.0 Ur Leukocyte Esterase Neg Urine RBC (Auto) < 1 Urine Microscopic WBC < 1 Ur Squamous Epith Cells < 1 Urine Opiates Screen Negative Urine Methadone Screen Negative Ur Barbiturates Screen Negative Ur Phencyclidine Scrn Negative Ur Amphetamines Screen Negative U Benzodiazepines Scrn Negative U Oth Cocaine Metabols Negative U Cannabinoids Screen Negative Alcohol, Quantitative 05/02/18 05/02/18 01:22 05:58 WBC RBC Hgb Hct MCV MCH MCHC RDW Plt Count MPV Neut % (Auto) Lymph % (Auto) [place] % (Auto) Eos % (Auto) Baso % (Auto) Neut # (Auto) Lymph # (Auto) [place] # (Auto) Eos # (Auto) Baso # (Auto) Sodium Potassium 4.0 Chloride Carbon Dioxide Anion Gap BUN Creatinine Est GFR ( Amer) Est GFR (Non-Af Amer) POC Glucose (mg/dL) 153 H Random Glucose Calcium Total Bilirubin AST ALT Alkaline Phosphatase Total Protein Albumin Globulin Albumin/Globulin Ratio Urine Color Urine Clarity Urine pH Ur Specific [place] Urine Protein Urine Glucose (UA) Urine Ketones Urine Blood Urine Nitrate Urine Bilirubin Urine Urobilinogen Ur Leukocyte Esterase Urine RBC (Auto) Urine Microscopic WBC Ur Squamous Epith Cells Urine Opiates Screen Urine Methadone Screen Ur Barbiturates Screen Ur Phencyclidine Scrn Ur Amphetamines Screen U Benzodiazepines Scrn U Oth Cocaine Metabols U Cannabinoids Screen Alcohol, Quantitative Assessment & Plan - Assessment and Plan (Free Text) Assessment: major neurocognitive disorder schizoaffective disorder Plan: pt at current mental status needs hospitalization for medication stabilization awaiting signature by POA for admission to psychiatry unit
--- NOTE | 2018-05-02 16:23 | PCM.BM ---
<SiddharthaAmericae - Last Filed: 05/02/18 16:21> Treatment Plan Problems - Problems identified on initial assessmt social isolation Date Initiated: 05/02/18 Time Initiated: 16:22 Date resolved: 05/05/18 Assessment reference: NA Status: Active Priority: 1 medication nonadherence Date Initiated: 05/02/18 Time Initiated: 16:23 Date resolved: 05/05/18 Assessment reference: NA Status: Active Priority: 2 altered thought process Date Initiated: 05/02/18 Time Initiated: 16:24 Date resolved: 05/05/18 Assessment reference: NA Status: Active Priority: 3 knowledge deficit Date Initiated: 05/02/18 Time Initiated: 16:25 Date resolved: 05/05/18 Assessment reference: NA Status: Active Priority: 4 Treatment assets and liabiliti Patient Assests: adapts well, cooperative, negotiates basic needs Patient Liabilities: live alone, poor support system, dietary restrictions, medical problems, imparied memory - Milieu Protocol Maintain good personal hygiene: every shift Encourage regular showers, every shift Remind patient to perform daily oral care, every shift Assist patient to perform ADL's Maintain personal safety: every shift Educate patient to report safety concerns to staff, every shift Monitor environment for contraband/sharps Medication safety: Monitor for expected outcome, potential side effects: every shift, Assess barriers to learning: every shift, Assess readiness for medication education: every shift <Charlotte Fernando - Last Filed: 05/03/18 13:49> Family Contact Family involvement: No known Family/SO Family contact: Other (Office of Public Guardian - Tre Polk (assistant case manager)) Family contacted how many times per week?: 2 Family contact comment: [phone] - Outside Agency [facility] involent: Information-sharing Agency contact name: [facility] social worker Agency contact number: [phone] - Goals for Treatment Patient goals for treatment: Pt will improve overall mood. Pt will attend clinical and activity groups. Pt will be compliant with medications. Pt will improve personal hygiene and appropriate care. Pt will shower daily. Discharge/Continuing Care - Education Needs Education Needs: Patient Medication, Patient Diagnosis/Disease Process, Patient Coping Skills, Patient Placement options, Patient Community resources, Patient Activities of Daily Living, Patient Health Practices/Safety, Patient Personal Hygiene/Grooming, Patient Aftercare Safety Plan - Discharge Discharge Criteria: Tolerates medication w/o severe side effects, Free of paranoid thoughts, Free of agitation, Normal sleep pattern, Ability to care for self, Reduction of target symptoms Discharge to:: Home, Long-Term - Additional Comments 05/03/18 14:03 Pt discussed in team meeting. Pt unable to attend due to be observed sleeping. Pt was medicated earlier in the morning due to screaming and yelling behaviors. Staff was unable to de-escalate pt verbally and pt required to be medicated. Pt was referred to the ED by senior building construction estimator and [facility] due to screaming, yelling, and paranoid bx. Pt believes that the [place] cocaine cartel is after him. Pt also reported that he is 28 years old but looks older because he has to disguise himself from the cartel. Pts's hygiene and grooming is poor. Pt is unkempt and dishevel. Unclear if pt was compliant with prescribed medications. Pt is linked to [employer] and [employer]. SAW GRINDER to meet with pt and review medications. Pt's medical and social issues reviewed and discussed. SW will contact [employer] assistant case manager and [employer] for collateral information. - Treatment Team Participation Discussed with Family/SO: No Was Patient/Family/SO present at Treatment Team Meeting: Yes <Constance Salas - Last Filed: 05/06/18 07:38> - Diagnosis (1) Schizophrenia Status: Chronic Interventions: Medication management, Individual and group therapy, Psychoeducation 05/06/18 07:37 (2) Dementia Status: Chronic Interventions: Medication management, Individual and group therapy, Psychoeducation 05/06/18 07:38
[2018-05-02] MEDS ORDERED: Magnesium Hydroxide Susp 30 ml UD PO PRN (17:49)
[2018-05-02] MEDS ORDERED: Alum-Mag Hydrox-Simethicone Susp (30 mL) PO PRN (17:49)
--- NOTE | 2018-05-02 18:41 | PCM.PSYCH ---
Initial Psychiatric Evaluation - Initial Psychiatric Evaluation Type of Admission: Voluntary Chief Complaint (in patient's own words): i dont know why, i was in my house they told me i was making noise, Patient's Reaction to Hospitalization: pt has poa History of Present Illness and Precipitating Events: pt with history of chronic mental illness, schizophrenia, memory pt has poa. came to emergency via ems after ems called 2nd to reported noise. pt presented to 3ns via wheel chair, pt was seen about unit, stating that did not need admission. pt does not appear to have understanding of reason for admission.i per crisis notes: COLLATERAL FROM [place], [facility] SCREENER, REVEALS THAT A MOBILE OUTREACH WAS REQUESTED BY [employer] AFTER HAVING BEEN CALLED BY THE PT'S [place] WHEREAS THE PT WAS IN HIS APARTMENT AND WAS YELLING AND SCREAMING. PER MAHAD, WHEN THEY ARRIVED TO THE PT'S HOME HE WOULD NOT LET THEM IN AND WAS YELLING FOR THEM TO GO AWAY. SHE REPORTED THAT HE FINALLY OPENED THE DOOR AND HAD NO SHIRT ON. SHE REPORTED THAT HE WAS ANGRY AND HOSTILE AND WAS INDICATING THE THE [employer] WAS AFTER HIM. SHE REPORTED THAT THE PT WAS YELLING AT THE POLICE AND TELLING THEM TO PUT HIM IN THE ELECTRIC CHAIR. SHE REPORTED THAT THE PT FOR NO APPARENT REASON BEGAN TO EXCESSIVELY BANG ON HIS CHEST. SHE REPORTED THAT THE PT'S APARTMENT WAS SOMEWHAT DISHELVED AND THAT HE BARELY HAD ANY FOOD IN HIS APARTMENT. SHE REPORTED THAT SHE DOES NOT BELIEVE THAT THE PT HAS BEEN COMPLIANT WITH HIS MEDICATIONS. PER MAHAD THE PT INDICATED THAT HE IS 28 YEARS OLD AND THAT HE IS PRETENDING TO BE AN OLD MAN TO HIDE FROM THE CARTELL. PT PRESENTED A 72Y/O MALE BROUGHT TO THIS ER BY MOBILE CRISIS DUE TO EXHIBITING BIZARRE BEHAVIORS IN HIS HOME. PT REPORTED THAT HE WAS AT HOME MINDING HIS BUSINESS AND TALKING WITH HIMSELF WHEN THE POLICE SHOWED UP WITH THIS GIRL AND DEMANDED THAT HE COME WITH THEM. HE REPORTED THAT HE WAS TRYING TO TELL THE POLICE THAT THE [employer] WAS AFTER HIM BUT THEY WOULD NOT LISTEN SO HE STARTED TO YELL AND HIT HIS CHEST TO GET THEIR ATTENTION. HE REPORTED THAT HE WAS TELLING THE POLICE TO PUT HIM IN THE ELECTRIC CHAIR SO HE COULD QUICKLY BECAUSE IF THE CARTELL GETS A HOLD OF HIM THEY ARE GOING TO TORTURE HIM AND KILL HIM SLOWLY. PT WAS ASKED HI AGE AND HE REPORTED THAT HE IS REALLY 28 HOWEVER HE HAS DISGUISED HIMSELF TO LOOK LIKE AN OLD MAN IN ORDER TO HIDE FROM THE CARTELL. PT REPORTED THAT HE HAS A NURSE THAT COMES TO HIS HOME TWO TIMES A DAY TO GIVE HIM HIS MEDICATIONS. HE REPORTED THAT HE KNOWS THAT HE TAKES 7 PILLS BUT HE DOES NOT KNOW WHAT THEY ARE. PT REPORTS THAT HE TAKES HIS MEDICATIONS. AT THE TIME OF ASSESSMENT, HE WAS CALM, COOPERATIVE AND BEHAVIORALLY CONTROLLED. SPEECH WAS AT A NORMAL RATE AND TONE. PSYCHOMOTOR SKILLS WERE WITHIN NORMAL LIMITS. HIS THOUGHT PROCESS WAS ILLOGICAL. HIS THOUGHT CONTENT WAS INCLUSIVE OF PERCEPTUAL DELUSIONS INDICATED ABOVE. HE DENIED SI/HI OR ANY THOUGHTS OF SELF HARM. HE ADMITS TO HAVING CONVERSATIONS WITH HIMSELF HOWEVER DENIED HALLUCINATIONS. PT WAS NOT OBSERVED TO BE RESPONDING TO INTERNAL/EXTERNAL STIMULI AT THIS TIME; HOWEVER MUSEUM ASSISTANT IS NOT PREPARED TO RULE OUT A/V/T HALLUCINATIONS. PT DISPLAYS OVERT SIGNSI OF PSYCHOSIS AND PSYCHIATRIC DANGEROUSNESS. HE WAS NOT IN ACUTE CRISIS OR MENTAL DISTRESS. THE PT WAS ALERT AND ORIENTED TO PERSON AND PLACE BUT NOT TIME. HE WAS SOMEWHAT POORLY GROOMED. HIS HYGIENE REQUIRED SIGNIFICANT IMPROVEMENT AND HE APPEARED TO BE FRAIL AND UNDERWEIGHT. HIS GAIT WAS NOT GAUGED AT THE TIME OF ASSESSMENT. HE REPORTED NO SIGNIFICANT SLEEP OR APPETITE DISTURBANCES. HIS MOOD WAS CALM AND HIS AFFECT WAS STABLE. IT SHOULD BE NOTED THAT THE PT IS ALSO TANGENTIAL WITH FLIGHT OF IDEAS. HE IS ALSO PARANOID AND DELUSIONAL. MEMORY AND EYE CONTACT WERE POOR. INSIGHT AND JUDGMENT WERE NOTED TO BE IMPAIRED. PT SCORED A 3 ON HIS SUICIDE ASSESSMENT WHICH INDICATES LOW RISK. PT APPEARS TO BE EXHIBITING MARKED DETERIORATIONS IN HIS COGNITIVE ABILITIES TO FUNCTION. ADDITIONALLY PT APPEARS TO BE SIGNIFICANTLY DECOMPENSATED AND IN DIRE NEED OF STABILIZATION. PT MEETS CRITERIA FOR ADMISSION. MUSEUM ASSISTANT CONTACTED THE OFFICE OF THE PUBLIC GUARDIAN AND SPOKE TO FABIANO WHO TOOK PT AND MUSEUM ASSISTANT INFORMATION AND REPORTED THAT HE WILL HAVE THE [employer] PUBLIC GUARDIAN CONTACT THIS MUSEUM ASSISTANT. Current Medications: Active Medications Generic Name Dose Route Start Last Admin Trade Name Freq PRN Reason Stop Dose Admin Acetaminophen 650 mg 05/02/18 17:49 Tylenol 325mg Tab PO Q4 PRN Pain, moderate (4-7) Al Hydrox/Mg Hydrox/Simethicone 30 ml 05/02/18 17:49 Maalox Plus 30 Ml PO Q4 PRN Dyspepsia Aspirin 81 mg 05/03/18 09:00 Aspirin Chewable PO DAILY [facility] Atorvastatin Calcium 20 mg 05/02/18 22:00 Lipitor PO HS BEL Donepezil HCl 5 mg 05/02/18 22:00 Aricept PO HS BEL Glipizide 10 mg 05/03/18 09:00 Glucotrol PO DAILY [facility] Insulin Detemir 8 units 05/02/18 22:00 Levemir SC HS [facility] Levothyroxine Sodium 50 mcg 05/03/18 06:30 Synthroid PO DAILY@0630 BEL Lorazepam 0.5 mg 05/02/18 17:49 Ativan PO 05/16/18 17:50 Q6 PRN Anixety/Agitation Magnesium Hydroxide 30 ml 05/02/18 17:49 Milk Of Magnesia PO HS PRN Constipation Pantoprazole Sodium 40 mg 05/03/18 09:00 Protonix Ec Tab PO DAILY [facility] Risperidone 2 mg 05/02/18 21:00 Risperdal Tab PO Q12 [facility] Sitagliptin Phosphate 100 mg 05/03/18 09:00 Januvia PO DAILY [facility] Past Psychiatric History - Past Psychiatric History Prior Professional Help: previous [facility] Explanation of prior treatment: inpt, opd, non adherence , assigned public guardian, History of Abuse: defers History of ETOH/Drug Use: defers History of Family Illness: defers Pertinent Medical Hx (Current Medical&Sleep Prob, Allergies): Allergies Allergy/AdvReac Type Severity Reaction Status Date / Time No Known Allergies Allergy Verified 05/01/18 21:30 Aspirin [Aspirin Chewable] 81 mg PO DAILY #30 chew 03/19/18 Donepezil [Aricept] 5 mg PO HS #30 tab 03/19/18 GlipiZIDE [Glucotrol] 10 mg PO DAILY #30 tab 03/19/18 Insulin Detemir [Levemir] 8 units SC HS #1 vial 03/19/18 Levothyroxine [Synthroid] 1 tab PO DAILY #30 tab 03/19/18 Pantoprazole [Protonix EC Tab] 40 mg PO DAILY #30 ect 03/19/18 Risperidone [Risperdal] 2 mg PO Q12 #60 tablet 03/19/18 SITagliptin [Januvia] 100 mg PO DAILY #30 tab 03/19/18 Atorvastatin [Lipitor] 20 mg PO HS #30 tab 03/20/18 Review of Systems - Psychiatric Psychiatric: Auditory Hallucinations, Behavioral Changes, Irritability, Memory Loss, Mood Swings, Paranoia Additional comments: delusions being a 28 yr old man, having no blood left Mental Status Examination - Personal Presentation Personal Presentation: Looks stated age - Affect Affect: Constricted - Motor Activity Motor Activity: Psychomotor Agitation - Reliability in Providing Information Reliability in Providing Information: Poor, due to alteration in thoughts, Poor, due to cognitve impairment - Speech Speech: Disorganized - Mood Mood: Anxious Additional comments: irritable - Formal Thought Process Formal Thought Process: Hallucinations, Delusions - Cognitive Functions Orientation: Person Sensorium: Other (irritable labile) Judgement: Imparied, as evidence by: Poor judgement, Imparied, as evidence by: Lack of insight into illness - Risk Risk: Diminished functioning - Strength & Assets Inventory Additional comments: had public guardian DSM 5 DX - DSM 5 DSM 5 Diagnosis: schizophrenia paranoid memory changes - Recommended/Plan of Treatment Treatment Recommendations and Plan of Treatment: adm per attending vital signs and clinical observation per protocol and per clinical status prns per unit protocol hospitalist consult per child welfare worker poa has been notifed restart medications previous visit adjust medicines per clinical status discharge planning in process Projected ELOS: 5-7 days Prognosis: guarded Discharge Plan and Discharge Criteria: safety - Smoking Cessation Smoking Cessation Initiated: No Reason for not providing: pt defers
[2018-05-02] MEDS: Insulin Detemir 100 Units/ml Inj SC SCH (21:35)
[2018-05-03] MEDS ORDERED: DiphenhydrAMINE 50 mg/ml Inj ONE (06:14)
[2018-05-03] MEDS: Levothyroxine 50 MCG TAB PO SCH ×2 (06:21→08:23)
[2018-05-03] MEDS ORDERED: DiphenhydrAMINE 50 mg/ml Inj IM STA (06:22)
[2018-05-03] MEDS: Pantoprazole 40 mg EC Tab PO SCH (08:23)
--- NOTE | 2018-05-03 08:23 | CP.PCM.CON ---
<Sultan Edinson - Last Filed: 05/03/18 14:24> History of Present Illness - History of Present Illness History of Present Illness: 72 year old male with a PMHx of schizoaffective disorder, dementia, hypothyroidism and DM II admitted to psychiatry unit for worsening of schizoaffective disorder. This morning, patient seen and examined with Dr. Alvarez. Denies any cough, chest pain, dyspnea, fever or chills. Patient refused blood work this morning. PMHx: DM II, Dementia, Schizoaffective disorder, hypothyroidism. Surgical hx: nose surgery Social Hx ex- smoker Family hx Non contributory Allergies: NKDA Medications: reviewed Review of Systems - Review of Systems Review of Systems: All 12 systems reviewed and negative except as mentioned in HPI Past Patient History - Past Medical History & Family History Past Medical History?: Yes - Past Social History Smoking Status: Former Smoker - CARDIAC Hx Hypertension: No - PULMONARY Hx Pneumonia: Yes - NEUROLOGICAL Hx Alzheimer's Disease: Yes Hx Dementia: Yes Hx Seizures: No - HEENT Hx HEENT Problems: No - RENAL Hx Chronic Kidney Disease: No - ENDOCRINE/METABOLIC Hx Endocrine Disorders: Yes Hx Diabetes Mellitus Type 1: Yes - HEMATOLOGICAL/ONCOLOGICAL Hx Human Immunodeficiency Virus (HIV): No - INTEGUMENTARY Hx Dermatological Problems: No - MUSCULOSKELETAL/RHEUMATOLOGICAL Hx Musculoskeletal Disorders: Yes Hx Falls: No - GASTROINTESTINAL Hx Gastrointestinal Disorders: No - GENITOURINARY/GYNECOLOGICAL Hx Sexually Transmitted Disorders: No - PSYCHIATRIC Hx Schizophrenia: Yes Hx Substance Use: No - SURGICAL HISTORY Hx Surgeries: Yes Other/Comment: Hx nose surgery in his youth stated had surgery for nosebleeding - ANESTHESIA Hx Anesthesia: No Hx Anesthesia Reactions: No Hx Malignant Hyperthermia: No Meds Allergies/Adverse Reactions: Allergies Allergy/AdvReac Type Severity Reaction Status Date / Time No Known Allergies Allergy Verified 05/01/18 21:30 - Medications Medications: Current Medications Acetaminophen (Tylenol 325mg Tab) 650 mg PO Q4 PRN PRN Reason: Pain, moderate (4-7) Al Hydrox/Mg Hydrox/Simethicone (Maalox Plus 30 Ml) 30 ml PO Q4 PRN PRN Reason: Dyspepsia Aspirin (Aspirin Chewable) 81 mg PO DAILY [facility]S [facility]S AT [facility] Atorvastatin Calcium (Lipitor) 20 mg PO HS COUNTS INCLUDE 234 BEDS AT [facility] Last Admin: 05/02/18 21:33 Dose: 20 mg Donepezil HCl (Aricept) 5 mg PO HS COUNTS [facility]CLUDE 234 BEDS AT [facility] Last Admin: 05/02/18 21:33 Dose: 5 mg Glipizide (Glucotrol) 10 mg PO DAILY COUNTS [facility]CLUDE 234 BEDS AT [facility] Insulin Detemir (Levemir) 8 units SC [facility] Last Admin: 05/02/18 21:35 Dose: 8 units Levothyroxine Sodium (Synthroid) 50 mcg PO DAILY@0630 [facility]S [facility]CLUDE 234 BEDS AT [facility] Lorazepam (Ativan) 0.5 mg PO Q6 PRN PRN Reason: Anixety/Agitation Stop: 05/16/18 17:50 Magnesium Hydroxide (Milk Of Magnesia) 30 ml PO HS PRN PRN Reason: Constipation Pantoprazole Sodium (Protonix Ec Tab) 40 mg PO DAILY COUNTS INCLUDE 234 BEDS AT [facility] Risperidone (Risperdal Tab) 2 mg PO Q12 COUNTS INCLUDE 234 BEDS AT [facility] Last Admin: 05/02/18 21:30 Dose: 2 mg Sitagliptin Phosphate (Januvia) 100 mg PO DAILY COUNTS [facility]CLUDE 234 BEDS AT [facility] Physical Exam - Constitutional Appears: No Acute Distress, Unkempt - Head Exam Head Exam: NORMAL INSPECTION - Eye Exam Eye Exam: Normal appearance - ENT Exam ENT Exam: Mucous Membranes Moist - Neck Exam Neck exam: Positive for: Normal Inspection - Respiratory Exam Respiratory Exam: Clear to Auscultation Bilateral, NORMAL BREATHING PATTERN. absent: Rhonchi, Wheezes - Cardiovascular Exam Cardiovascular Exam: REGULAR RHYTHM, +S1, +S2 - GI/Abdominal Exam GI & Abdominal Exam: Normal Bowel Sounds, Soft. absent: Tenderness - Extremities Exam Extremities exam: Positive for: normal inspection - Neurological Exam Neurological exam: Alert - Skin Skin Exam: Normal Color Results - Vital Signs Recent Vital Signs: Last Vital Signs Temp 98.1 F 05/03/18 05:41 Pulse 76 05/03/18 05:41 Resp 19 05/03/18 05:41 BP 113/74 05/03/18 05:41 Pulse Ox 99 05/02/18 14:08 - Labs Result Diagrams: 05/01/18 23:03 05/02/18 01:22 Labs: Laboratory Results - last 24 hr 05/02/18 05/02/18 11:45 16:08 POC Glucose (mg/dL) 263 H 295 H Assessment & Plan - Assessment and Plan (Free Text) Assessment: 72 year old male with a PMHx of schizoaffective disorder, dementia and DM II admitted to psychiatry unit for worsening of schizoaffective disorder. Plan: Schizoaffective disorder and dementia -management as per psychiatric team DMII and hypothyroidism -resume home medications -F/U A1C and TSH -rest of the plan as ordered Patient seen, examined and plan discussed with Dr. Kim Neves, pgy-2 <Agustin Alvraez - Last Filed: 05/07/18 12:17> Meds - Medications Medications: Current Medications Acetaminophen (Tylenol 325mg Tab) 650 mg PO Q4 PRN PRN Reason: Pain, moderate (4-7) Al Hydrox/Mg Hydrox/Simethicone (Maalox Plus 30 Ml) 30 ml PO Q4 PRN PRN Reason: Dyspepsia Aspirin (Aspirin Chewable) 81 mg PO DAILY COUNTS [facility]CLUDE 234 BEDS AT [facility] Last Admin: 05/07/18 08:19 Dose: 81 mg Atorvastatin Calcium (Lipitor) 20 mg PO HS COUNTS INCLUDE 234 BEDS AT [facility] Last Admin: 05/06/18 21:31 Dose: 20 mg Dextrose (Glutose 15) 0 gm PO ONCE PRN; Protocol PRN Reason: Hypoglycemia Protocol Diphenhydramine HCl (Benadryl) 50 mg PO Q6 PRN PRN Reason: sleep, anxiety Diphenhydramine HCl (Benadryl) 50 mg IM Q6 PRN PRN Reason: severe agitation Donepezil HCl (Aricept) 5 mg PO [facility] Last Admin: 05/06/18 21:31 Dose: 5 mg Glipizide (Glucotrol) 10 mg PO DAILY COUNTS [facility]CLUDE 234 BEDS AT [facility] Last Admin: 05/07/18 08:20 Dose: 10 mg Insulin Detemir (Levemir) 10 units SC [facility] Insulin Human Lispro (Humalog) 0 units SC [facility]; Protocol Last Admin: 05/07/18 09:40 Dose: 6 u Levothyroxine Sodium (Synthroid) 50 mcg PO DAILY@0630 COUNTS INCLUDE 234 BEDS AT [facility] Last Admin: 05/07/18 05:58 Dose: 50 mcg Lorazepam (Ativan) 0.5 mg PO Q6 PRN PRN Reason: Anixety/Agitation Stop: 05/16/18 17:50 Lorazepam (Ativan) 1 mg IM Q6 PRN PRN Reason: severe anxiety/aggitation Magnesium Hydroxide (Milk Of Magnesia) 30 ml PO HS PRN PRN Reason: Constipation Metformin HCl (Glucophage) 500 mg PO Q12 COUNTS INCLUDE 234 BEDS AT [facility] Last Admin: 05/07/18 09:38 Dose: 500 mg Pantoprazole Sodium (Protonix Ec Tab) 40 mg PO DAILY COUNTS INCLUDE 234 BEDS AT [facility] Last Admin: 05/07/18 08:19 Dose: 40 mg Risperidone (Risperdal Tab) 2 mg PO Q12 COUNTS INCLUDE 234 BEDS AT [facility] Last Admin: 05/07/18 08:21 Dose: 2 mg Sitagliptin Phosphate (Januvia) 100 mg PO DAILY COUNTS INCLUDE 234 BEDS AT [facility] Last Admin: 05/07/18 08:20 Dose: 100 mg Results - Vital Signs Recent Vital Signs: Last Vital Signs Temp 97.3 F L 05/07/18 06:00 Pulse 84 05/07/18 06:00 Resp 19 05/07/18 06:00 BP 131/73 05/07/18 06:00 Pulse Ox 99 05/02/18 14:08 - Labs Result Diagrams: 05/01/18 23:03 05/02/18 01:22 Labs: Laboratory Results - last 24 hr 05/06/18 05/06/18 05/06/18 11:52 15:53 20:06 POC Glucose (mg/dL) 320 H 195 H 278 H 05/07/18 05:59 POC Glucose (mg/dL) 260 H Assessment & Plan - Assessment and Plan (Free Text) Assessment: Patient was personally seen and examined by me in rounds with residents. Available labs and diagnostic data reviewed. Case, Patient's condition and management plan discussed with residents in rounds. Agree with resident's progress note. Plan: As ordered.
[2018-05-03] MEDS ORDERED: Levothyroxine 25 MCG TAB PO SCH (09:00)
[2018-05-03] MEDS ORDERED: DiphenhydrAMINE 50 mg/ml Inj IM PRN (19:11)
--- NOTE | 2018-05-03 20:02 | PCM.PYCHPN ---
Psychiatric Progress Note - Psychiatric Progress Note Patient seen today, length of contact: chart reviewed case discussed with team, pt seen Patient Chief Complaint: pt seen walking about unit, early today pt became irritable upset not redirectable received prn does not know why he is in is in hospital continues to have poor insight. this morning refused am labs. was adherent with rx and good appetite. Problems Identified/Issues Discussed: alteration in mood alteration in cognition alteration in self care Medical Problems: per chart, history of non adherence Diagnostic Results: per psychiatry per medicine per nursing per social work DSM 5 Symptoms Update: irritable today required prn-admitted day for-adjusting meds per clinical status Medication Change: Yes (pt received stat rx today 2nd irritability) Medical Record Reviewed: Yes Mental Status Examination - Cognitive Function Orientation: Person - Mood Mood: Anxious - Affect Affect: Constricted - Speech Speech: Slurred - Formal Thought Process Formal Thought Process: Hallucinations, Delusions - Homicidal Ideation Homicidal Ideation: No Goal/Treatment Plan - Goal/Treatment Plan Need for Continued Stay: Remain at risks for inpatient hospitalization, Discharge may exacerbated symptoms, Severe functional impairment Progress Toward Problem(s) and Goals/Treatment Plan: adm per attending vital signs and clinical observation per protocol and per clinical status prns per unit protocol 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
[2018-05-03] MEDS: Insulin Detemir 100 Units/ml Inj SC SCH (21:07)
[2018-05-04 07:55] LABS: FERRITIN 14.2 ng/Ml (17.9-464)
[2018-05-04] MEDS: Levothyroxine 50 MCG TAB PO SCH (08:57)
[2018-05-04] MEDS: Pantoprazole 40 mg EC Tab PO SCH (08:58)
--- NOTE | 2018-05-04 09:22 | PCM.PYCHPN ---
Psychiatric Progress Note - Psychiatric Progress Note Patient seen today, length of contact: chart reviewed case discussed with team, pt seen Patient Chief Complaint: pt has been still confused anc internally preoccupied.pt less agitaged and less anxious on current regimen of risperdal.and complying with meds .pt was admitted for psychotic agitation and remains with poor insight regarding his psychotic agitation. Medication Change: Yes (pt received stat rx today 2nd irritability) Medical Record Reviewed: Yes Mental Status Examination - Cognitive Function Orientation: Person Attention: Poor Concentration: Poor Association: WNL Fund of Knowledge: WNL - Mood Mood: Anxious - Affect Affect: Constricted - Speech Speech: Slurred - Formal Thought Process Formal Thought Process: Hallucinations, Delusions - Homicidal Ideation Homicidal Ideation: No Goal/Treatment Plan - Goal/Treatment Plan Need for Continued Stay: Remain at risks for inpatient hospitalization, Discharge may exacerbated symptoms, Severe functional impairment Progress Toward Problem(s) and Goals/Treatment Plan: will continue to titrate meds and engage in therapy and groups. Dis Disposition as per primary psychiatrist. Estimated Date of D/C: 05/10/18
--- NOTE | 2018-05-04 12:00 | PN ---
DATE: 05/04/2018 SUBJECTIVE: The patient seen and examined. Interim events noted. Consult noted and appreciated. Psychiatric followup and intervention noted and appreciated. The patient remains in geropsych unit. The patient was found to be tachycardic overnight. Currently the patient denies any complaints. No chest pain. No shortness of breath. No palpitation. He does his activity like usual. PHYSICAL EXAMINATION: GENERAL: The patient is in no acute distress. VITAL SIGNS: Stable. Heart rate is now 86. HEART: S1, S2. Normal and regular LUNGS: Good bilateral air exchange. ABDOMEN: Soft, nontender. EXTREMITIES: No edema. No calf swelling. No tenderness. No acute ischemia. CENTRAL NERVOUS SYSTEM: Essentially unchanged. DIAGNOSTIC DATA: Available diagnostic data reviewed. Overall, the patient's general medical condition is stable. PLAN : As ordered. Agustin Alvarez MD
[2018-05-04] MEDS: Insulin Lispro (humaLOG) 100 Units/ml Inj SC SCH ×3 (12:52→21:24)
[2018-05-04 12:56] LABS: FOLATE 9.5 ng/mL
[2018-05-04] MEDS: Insulin Detemir 100 Units/ml Inj SC SCH (21:25)
[2018-05-05] MEDS: Levothyroxine 50 MCG TAB PO SCH (06:23)
[2018-05-05] MEDS: Insulin Lispro (humaLOG) 100 Units/ml Inj SC SCH ×4 (08:26→21:06)
[2018-05-05] MEDS: Pantoprazole 40 mg EC Tab PO SCH (08:27)
--- NOTE | 2018-05-05 10:15 | CARD ---
APPROVED REPORT Date of service: 05/04/2018 EKG Measurement Heart [id number] <Conclusion> Normal sinus rhythm Possible Left atrial enlargement Otherwise normal ECG
--- NOTE | 2018-05-05 12:05 | PN ---
DATE: 05/05/2018 SUBJECTIVE: The patient seen and examined. Interim events noted. The patient remains in geropsych unit. Sleeping, arousable, feels okay. Denies any specific complaint or chest pain. No shortness of breath. Nursing staff reported elevated blood sugar . PHYSICAL EXAMINATION: GENERAL: The patient is in no acute distress. VITAL SIGNS: Stable. HEART: S1, S2. Normal and regular. LUNGS: Good bilateral air exchange. ABDOMEN: Soft, nontender. EXTREMITIES: No edema. No calf swelling. No tenderness. No acute ischemia. CENTRAL NERVOUS SYSTEM: Essentially unchanged. DIAGNOSTIC DATA: Available diagnostic data reviewed. ASSESSMENT: Overall, the patient is medically stable. PLAN: As ordered. Agustin Alvarez MD
--- NOTE | 2018-05-05 14:47 | PCM.PYCHPN ---
Psychiatric Progress Note - Psychiatric Progress Note Patient seen today, length of contact: chart reviewed case discussed with team, pt seen Patient Chief Complaint: pt has remained dysphoric and irritible and at times internally preoccupied.pt has been less agitaged on current regimen of risperdal and complying with meds .pt was admitted for psychotic agitation.but still has poor insight . Medication Change: Yes (pt received stat rx today 2nd irritability) Medical Record Reviewed: Yes Mental Status Examination - Cognitive Function Orientation: Person Attention: Poor Concentration: Poor Association: WNL Fund of Knowledge: WNL - Mood Mood: Anxious - Affect Affect: Constricted - Speech Speech: Slurred - Formal Thought Process Formal Thought Process: Hallucinations, Delusions - Homicidal Ideation Homicidal Ideation: No Goal/Treatment Plan - Goal/Treatment Plan Need for Continued Stay: Remain at risks for inpatient hospitalization, Discharge may exacerbated symptoms, Severe functional impairment Progress Toward Problem(s) and Goals/Treatment Plan: will maintain current regimen of risperdal and titrate as needed and consider adding depakote if mood remains unstAble. Disposition as per primary psychiatrist. Estimated Date of D/C: 05/10/18
[2018-05-05] MEDS: Insulin Detemir 100 Units/ml Inj SC SCH (21:08)
[2018-05-06] MEDS: Levothyroxine 50 MCG TAB PO SCH (05:42)
--- NOTE | 2018-05-06 08:18 | PCM.PYCHPN ---
Psychiatric Progress Note - Psychiatric Progress Note Patient seen today, length of contact: Pt evaluated, chart reviewed, case discussed w/ team Patient Chief Complaint: Acute disorganization/ mood lability Problems Identified/Issues Discussed: Patient continues to be disorganized, labile, easily irritated w/ poor insight/judgment into his medical and psychiatric illnesses. Patient has a history of poor compliance with medications. He denies AH/VH/SI/HI. Medication Change: No Medical Record Reviewed: Yes Consults ordered or reviewed: Medicine consult Mental Status Examination - Cognitive Function Orientation: Person, Place Memory: Impaired Attention: Poor Concentration: Poor Association: Loose Fund of Knowledge: Poor Decription of patient's judgement and insights: Poor I/J - Mood Mood: Neutral - Affect Affect: Other (Labile) - Speech Speech: Appropriate - Formal Thought Process Formal Thought Process: Loosening of associations Psychotic Thoughts and Behaviors: Denies AH/VH - Suicidal Ideation Suicidal Ideation: No - Homicidal Ideation Homicidal Ideation: No Goal/Treatment Plan - Goal/Treatment Plan Need for Continued Stay: Remain at risks for inpatient hospitalization, Discharge may exacerbated symptoms, Severe functional impairment Progress Toward Problem(s) and Goals/Treatment Plan: Schizophrenia; Major Neurocognitive Impairment -Continue Risperdal and Aricept -Medicine consult -Individual and group therapy -Psychoeducation -Will discuss disposition with [facility] Estimated Date of D/C: 05/13/18
[2018-05-06] MEDS: Pantoprazole 40 mg EC Tab PO SCH (08:24)
[2018-05-06] MEDS: Insulin Lispro (humaLOG) 100 Units/ml Inj SC SCH ×3 (08:25→21:37)
--- NOTE | 2018-05-06 10:00 | PN ---
DATE: 05/06/2018 SUBJECTIVE: The patient seen an examined. Interim events noted. Psychiatry followup with intervention noted. The patient remains in geropsych unit. Awake, responsive. Denies any specific complaints. PHYSICAL EXAMINATION: GENERAL: The patient is in no acute distress. VITAL SIGNS: Stable. Physical exam is essentially unchanged. DIAGNOSTIC DATA: Available diagnostic data reviewed. ASSESSMENT AND PLAN: Overall, the patient's general medical condition is stable. Plan as ordered. Agustin Alvarez MD
[2018-05-06] MEDS: Insulin Detemir 100 Units/ml Inj SC SCH (21:32)
[2018-05-07] MEDS: Levothyroxine 50 MCG TAB PO SCH (05:58)
--- NOTE | 2018-05-07 07:46 | CP.PCM.PN ---
<Sultan Edinson - Last Filed: 05/07/18 07:53> Subjective - Date & Time of Evaluation Date of Evaluation: 05/07/18 Time of Evaluation: 07:30 - Subjective Subjective: Patient seen and examined this morning with Dr. Alvarez No acute overnight events. Afebrile with stable vitals Blood glucose not controlled, will increase Levemir to 10 units qhs Denies any acute complaints. Objective - Vital Signs/Intake and Output Vital Signs (last 24 hours): Temp Pulse Resp BP Pulse Ox 97.3 F L 84 19 131/73 99 05/07/18 06:00 05/07/18 06:00 05/07/18 06:00 05/07/18 06:00 05/02/18 14:08 - Medications Medications: Current Medications Acetaminophen (Tylenol 325mg Tab) 650 mg PO Q4 PRN PRN Reason: Pain, moderate (4-7) Al Hydrox/Mg Hydrox/Simethicone (Maalox Plus 30 Ml) 30 ml PO Q4 PRN PRN Reason: Dyspepsia Aspirin (Aspirin Chewable) 81 mg PO DAILY [facility] Last Admin: 05/06/18 09:05 Dose: 81 mg Atorvastatin Calcium (Lipitor) [address] [facility] Last Admin: 05/06/18 21:31 Dose: 20 mg Diphenhydramine HCl (Benadryl) 50 mg PO Q6 PRN PRN Reason: sleep, anxiety Diphenhydramine HCl (Benadryl) 50 mg IM Q6 PRN PRN Reason: severe agitation Donepezil HCl (Aricept) [address] [facility] Last Admin: 05/06/18 21:31 Dose: 5 mg Glipizide (Glucotrol) 10 mg PO DAILY [facility] Last Admin: 05/06/18 09:05 Dose: 10 mg Insulin Detemir (Levemir) [address] [facility] Insulin Human Lispro (Humalog) 0 units SC [facility]; Protocol Last Admin: 05/06/18 21:37 Dose: Not Given Levothyroxine Sodium (Synthroid) 50 mcg PO DAILY@0630 [facility] Last Admin: 05/07/18 05:58 Dose: 50 mcg Lorazepam (Ativan) 0.5 mg PO Q6 PRN PRN Reason: Anixety/Agitation Stop: 05/16/18 17:50 Lorazepam (Ativan) 1 mg IM Q6 PRN PRN Reason: severe anxiety/aggitation Magnesium Hydroxide (Milk Of Magnesia) 30 ml PO HS PRN PRN Reason: Constipation Pantoprazole Sodium (Protonix Ec Tab) 40 mg PO DAILY [facility] Last Admin: 05/06/18 08:24 Dose: 40 mg Risperidone (Risperdal Tab) 2 mg PO Q12 [facility] Last Admin: 05/06/18 21:31 Dose: 2 mg Sitagliptin Phosphate (Januvia) 100 mg PO DAILY [facility] Last Admin: 05/06/18 08:24 Dose: 100 mg - Labs Labs: 05/01/18 23:03 05/02/18 01:22 - Constitutional Appears: No Acute Distress, Unkempt - Head Exam Head Exam: NORMAL INSPECTION - Neck Exam Neck Exam: Normal Inspection - Respiratory Exam Respiratory Exam: Clear to Ausculation Bilateral, NORMAL BREATHING PATTERN - Cardiovascular Exam Cardiovascular Exam: REGULAR RHYTHM, +S1 - GI/Abdominal Exam GI & Abdominal Exam: Soft, Normal Bowel Sounds. absent: Tenderness - Extremities Exam Extremities Exam: Normal Inspection. absent: Calf Tenderness - Neurological Exam Neurological Exam: Alert, Awake, Normal Gait - Skin Skin Exam: Normal Color Assessment and Plan - Assessment and Plan (Free Text) Assessment: 72 year old male with a PMHx of schizoaffective disorder, dementia and DM II admitted to psychiatry unit for worsening of schizoaffective disorder. Plan: Schizoaffective disorder and dementia -management as per psychiatric team DMII, uncontrolled -HbA1C 12.5 on 05/04/18, previous 7.0 on 02/08/18 -c/w glipizide, sitagliptin -resume metformin 500 mg po q12 -increase lantus to 10 units QHS -sliding scale insulin and hypoglycemia protocol Hypothyroidism: -TSH 1.16 ON 05/04/18 -c/w synthroid 50 mcg qd -rest of the plan as ordered Patient seen, examined and plan discussed with Dr. Kim Neves, pgy-2 <Agustin Alvarez - Last Filed: 05/07/18 12:17> Objective - Vital Signs/Intake and Output Vital Signs (last 24 hours): Temp Pulse Resp BP Pulse Ox 97.3 F L 84 19 131/73 99 05/07/18 06:00 05/07/18 06:00 05/07/18 06:00 05/07/18 06:00 05/02/18 14:08 - Medications Medications: Current Medications Acetaminophen (Tylenol 325mg Tab) 650 mg PO Q4 PRN PRN Reason: Pain, moderate (4-7) Al Hydrox/Mg Hydrox/Simethicone (Maalox Plus 30 Ml) 30 ml PO Q4 PRN PRN Reason: Dyspepsia Aspirin (Aspirin Chewable) 81 mg PO DAILY [facility] Last Admin: 05/07/18 08:19 Dose: 81 mg Atorvastatin Calcium (Lipitor) [address] [facility] Last Admin: 05/06/18 21:31 Dose: 20 mg Dextrose (Glutose 15) 0 gm PO ONCE PRN; Protocol PRN Reason: Hypoglycemia Protocol Diphenhydramine HCl (Benadryl) 50 mg PO Q6 PRN PRN Reason: sleep, anxiety Diphenhydramine HCl (Benadryl) 50 mg IM Q6 PRN PRN Reason: severe agitation Donepezil HCl (Aricept) [address] [facility] Last Admin: 05/06/18 21:31 Dose: 5 mg Glipizide (Glucotrol) 10 mg PO DAILY [facility] Last Admin: 05/07/18 08:20 Dose: 10 mg Insulin Detemir (Levemir) [address] [facility] Insulin Human Lispro (Humalog) 0 units SC [facility]; Protocol Last Admin: 05/07/18 09:40 Dose: 6 u Levothyroxine Sodium (Synthroid) 50 mcg PO DAILY@0630 [facility] Last Admin: 05/07/18 05:58 Dose: 50 mcg Lorazepam (Ativan) 0.5 mg PO Q6 PRN PRN Reason: Anixety/Agitation Stop: 05/16/18 17:50 Lorazepam (Ativan) 1 mg IM Q6 PRN PRN Reason: severe anxiety/aggitation Magnesium Hydroxide (Milk Of Magnesia) 30 ml PO HS PRN PRN Reason: Constipation Metformin HCl (Glucophage) 500 mg PO Q12 [facility] Last Admin: 05/07/18 09:38 Dose: 500 mg Pantoprazole Sodium (Protonix Ec Tab) 40 mg PO DAILY [facility] Last Admin: 05/07/18 08:19 Dose: 40 mg Risperidone (Risperdal Tab) 2 mg PO Q12 [facility] Last Admin: 02/26/19 08:21 Dose: 2 mg Sitagliptin Phosphate (Januvia) 100 mg PO DAILY [facility] Last Admin: 05/07/18 08:20 Dose: 100 mg - Labs Labs: 05/01/18 23:03 05/02/18 01:22 Assessment and Plan - Assessment and Plan (Free Text) Assessment: Patient was personally seen and examined by me in rounds with residents. Available labs and diagnostic data reviewed. Case, Patient's condition and management plan discussed with residents in rounds. Agree with resident's progress note. Plan: As ordered.
[2018-05-07] MEDS: Pantoprazole 40 mg EC Tab PO SCH (08:19)
--- NOTE | 2018-05-07 08:30 | PCM.PYCHPN ---
Psychiatric Progress Note - Psychiatric Progress Note Patient seen today, length of contact: Pt evaluated, chart reviewed, case discussed w/ team Patient Chief Complaint: Acute disorganization/ mood lability Problems Identified/Issues Discussed: Patient is calmer, less disorganized and less labile. He continues to have poor insight/judgment into his medical and psychiatric illnesses. Patient continues to have poor self care. He denies AH/VH/SI/HI. Medication Change: No Medical Record Reviewed: Yes Consults ordered or reviewed: Medicine consult Mental Status Examination - Cognitive Function Orientation: Person, Place Memory: Impaired Attention: Poor Concentration: Poor Association: Loose Fund of Knowledge: Poor Decription of patient's judgement and insights: Poor I/J - Mood Mood: Neutral - Affect Affect: Constricted - Speech Speech: Appropriate - Formal Thought Process Formal Thought Process: Loosening of associations, Circumstantial Psychotic Thoughts and Behaviors: Denies AH/VH - Suicidal Ideation Suicidal Ideation: No - Homicidal Ideation Homicidal Ideation: No Goal/Treatment Plan - Goal/Treatment Plan Need for Continued Stay: Remain at risks for inpatient hospitalization, Discharge may exacerbated symptoms, Severe functional impairment Progress Toward Problem(s) and Goals/Treatment Plan: Schizophrenia; Major Neurocognitive Disorder -Continue Risperdal and Aricept -Medicine consult -Individual and group therapy -Psychoeducation -Disposition discussed w/ [facility]; patient will need skilled nursing placement when he is psychiatrically stable Estimated Date of D/C: 05/13/18
[2018-05-07] MEDS: Insulin Lispro (humaLOG) 100 Units/ml Inj SC SCH ×5 (09:38→21:14)
[2018-05-07] MEDS: Insulin Detemir 100 Units/ml Inj SC SCH (21:15)
[2018-05-08] MEDS: Levothyroxine 50 MCG TAB PO SCH (05:44)
--- NOTE | 2018-05-08 07:47 | CP.PCM.PN ---
<Sultan Edinson - Last Filed: 05/08/18 08:12> Subjective - Date & Time of Evaluation Date of Evaluation: 05/08/18 Time of Evaluation: 07:40 - Subjective Subjective: Patient seen and examined with Dr. Alvarez No acute overnight events. Afebrile with stable vitals Denies any acute complaints. Objective - Vital Signs/Intake and Output Vital Signs (last 24 hours): Temp Pulse Resp BP Pulse Ox 97.1 F L 86 18 135/77 99 05/08/18 06:00 05/08/18 06:00 05/08/18 06:00 05/08/18 06:00 05/08/18 05:20 - Medications Medications: Current Medications Acetaminophen (Tylenol 325mg Tab) 650 mg PO Q4 PRN PRN Reason: Pain, moderate (4-7) Al Hydrox/Mg Hydrox/Simethicone (Maalox Plus 30 Ml) 30 ml PO Q4 PRN PRN Reason: Dyspepsia Aspirin (Aspirin Chewable) 81 mg PO DAILY [facility] Last Admin: 05/07/18 08:19 Dose: 81 mg Atorvastatin Calcium (Lipitor) 20 mg PO [facility] Last Admin: 05/07/18 21:15 Dose: 20 mg Dextrose (Glutose 15) 0 gm PO ONCE PRN; Protocol PRN Reason: Hypoglycemia Protocol Diphenhydramine HCl (Benadryl) 50 mg PO Q6 PRN PRN Reason: sleep, anxiety Diphenhydramine HCl (Benadryl) 50 mg IM Q6 PRN PRN Reason: severe agitation Donepezil HCl (Aricept) 5 mg PO [facility] Last Admin: 05/07/18 21:15 Dose: 5 mg Glipizide (Glucotrol) 10 mg PO DAILY [facility] Last Admin: 05/07/18 08:20 Dose: 10 mg Insulin Detemir (Levemir) 10 units SC [facility] Last Admin: 05/07/18 21:15 Dose: 10 units Insulin Human Lispro (Humalog) 0 units SC [facility]; Protocol Last Admin: 05/07/18 21:14 Dose: Not Given Levothyroxine Sodium (Synthroid) 50 mcg PO DAILY@0630 [facility] Last Admin: 05/08/18 05:44 Dose: 50 mcg Lorazepam (Ativan) 0.5 mg PO Q6 PRN PRN Reason: Anixety/Agitation Stop: 05/16/18 17:50 Lorazepam (Ativan) 1 mg IM Q6 PRN PRN Reason: severe anxiety/aggitation Magnesium Hydroxide (Milk Of Magnesia) 30 ml PO HS PRN PRN Reason: Constipation Metformin HCl (Glucophage) 500 mg PO Q12 [facility] Last Admin: 05/07/18 21:15 Dose: 500 mg Pantoprazole Sodium (Protonix Ec Tab) 40 mg PO DAILY [facility] Last Admin: 05/07/18 08:19 Dose: 40 mg Risperidone (Risperdal Tab) 2 mg PO Q12 [facility] Last Admin: 05/07/18 21:15 Dose: 2 mg Sitagliptin Phosphate (Januvia) 100 mg PO DAILY [facility] Last Admin: 05/07/18 08:20 Dose: 100 mg - Labs Labs: 05/01/18 23:03 05/02/18 01:22 - Constitutional Appears: No Acute Distress, Unkempt - Head Exam Head Exam: NORMAL INSPECTION - Eye Exam Eye Exam: Normal appearance - ENT Exam ENT Exam: Mucous Membranes Moist - Neck Exam Neck Exam: Normal Inspection - Respiratory Exam Respiratory Exam: Clear to Ausculation Bilateral, NORMAL BREATHING PATTERN. absent: Rhonchi, Wheezes - Cardiovascular Exam Cardiovascular Exam: REGULAR RHYTHM, +S1, +S2 - GI/Abdominal Exam GI & Abdominal Exam: Soft, Normal Bowel Sounds. absent: Tenderness - Extremities Exam Extremities Exam: Normal Inspection - Neurological Exam Neurological Exam: Alert, Awake - Skin Skin Exam: Normal Color Assessment and Plan - Assessment and Plan (Free Text) Assessment: 72 year old male with a PMHx of schizoaffective disorder, dementia and DM II admitted to psychiatry unit for worsening of schizoaffective disorder. Plan: Schizoaffective disorder and dementia -management as per psychiatric team DMII, uncontrolled -HbA1C 12.5 on 05/04/18, previous 7.0 on 02/08/18 -c/w glipizide, sitagliptin -c/w Metformin 500 mg po q12 -c/w Lantus 10 units QHS -sliding scale insulin and hypoglycemia protocol -will increase Lantus tomorrow if glucose continues to be uncontrolled Hypothyroidism: -TSH 1.16 ON 05/04/18 -c/w synthroid 50 mcg qd -rest of the plan as ordered Patient seen, examined and plan discussed with Dr. Kim Neves, pgy-2 <Agustin Alvarez - Last Filed: 05/12/18 17:01> Objective - Vital Signs/Intake and Output Vital Signs (last 24 hours): Temp Pulse Resp BP Pulse Ox 98 F 72 18 116/74 20 L 05/12/18 15:31 05/12/18 15:31 05/12/18 15:31 05/12/18 15:31 05/09/18 16:09 - Medications Medications: Current Medications Acetaminophen (Tylenol 325mg Tab) 650 mg PO Q4 PRN PRN Reason: Pain, moderate (4-7) Al Hydrox/Mg Hydrox/Simethicone (Maalox Plus 30 Ml) 30 ml PO Q4 PRN PRN Reason: Dyspepsia Aspirin (Aspirin Chewable) 81 mg PO DAILY [facility] Last Admin: 05/12/18 08:20 Dose: 81 mg Atorvastatin Calcium (Lipitor) 20 mg PO HS [facility] Last Admin: 05/11/18 21:29 Dose: 20 mg Dextrose (Glutose 15) 0 gm PO ONCE PRN; Protocol PRN Reason: Hypoglycemia Protocol Diphenhydramine HCl (Benadryl) 50 mg PO Q6 PRN PRN Reason: sleep, anxiety Diphenhydramine HCl (Benadryl) 50 mg IM Q6 PRN PRN Reason: severe agitation Donepezil HCl (Aricept) 5 mg PO HS [facility] Last Admin: 05/11/18 21:29 Dose: 5 mg Glipizide (Glucotrol) 10 mg PO DAILY [facility] Last Admin: 05/09/18 08:02 Dose: 10 mg Insulin Detemir (Levemir) 10 units SC HS [facility] Last Admin: 05/11/18 21:30 Dose: 10 units Insulin Human Lispro (Humalog) 0 units SC [facility]; Protocol Last Admin: 05/12/18 16:48 Dose: 2 u Insulin Human Lispro (Humalog) 5 units SC AC [facility] Last Admin: 05/12/18 16:49 Dose: 5 u Levothyroxine Sodium (Synthroid) 50 mcg PO DAILY@0630 [facility] Last Admin: 05/12/18 06:00 Dose: 50 mcg Lorazepam (Ativan) 0.5 mg PO Q6 PRN PRN Reason: Anixety/Agitation Stop: 05/16/18 17:50 Lorazepam (Ativan) 1 mg IM Q6 PRN PRN Reason: severe anxiety/aggitation Magnesium Hydroxide (Milk Of Magnesia) 30 ml PO HS PRN PRN Reason: Constipation Metformin HCl (Glucophage) 500 mg PO Q12 [facility] Last Admin: 05/12/18 08:18 Dose: 500 mg Pantoprazole Sodium (Protonix Ec Tab) 40 mg PO DAILY [facility] Last Admin: 05/12/18 08:18 Dose: 40 mg Risperidone (Risperdal Tab) 2 mg PO Q12 [facility] Last Admin: 05/12/18 08:19 Dose: 2 mg Sitagliptin Phosphate (Januvia) 100 mg PO DAILY [facility] Last Admin: 05/12/18 08:19 Dose: 100 mg - Labs Labs: 05/01/18 23:03 05/02/18 01:22 Assessment and Plan - Assessment and Plan (Free Text) Assessment: Patient was personally seen and examined by me in rounds with residents. Available labs and diagnostic data reviewed. Case, Patient's condition and management plan discussed with residents in rounds. Agree with resident's progress note. Plan: As ordered.
--- NOTE | 2018-05-08 08:11 | PCM.PYCHPN ---
Psychiatric Progress Note - Psychiatric Progress Note Patient seen today, length of contact: Pt evaluated, chart reviewed, case discussed w/ team Patient Chief Complaint: Acute disorganization/ mood lability Problems Identified/Issues Discussed: Patient continues to improve clinically. He is calmer, more organized and reports his mood is stable. He continues to have poor insight/judgment into his medical and psychiatric illnesses. Patient continues to have poor self care. He denies AH/VH/SI/HI. Medication Change: No Medical Record Reviewed: Yes Consults ordered or reviewed: Medicine consult Mental Status Examination - Cognitive Function Orientation: Person, Place Memory: Impaired Attention: Poor Concentration: Poor Association: Loose Fund of Knowledge: Poor Decription of patient's judgement and insights: Poor I/J - Mood Mood: Neutral - Affect Affect: Broad - Speech Speech: Appropriate - Formal Thought Process Formal Thought Process: Loosening of associations, Circumstantial Psychotic Thoughts and Behaviors: Denies AH/VH - Suicidal Ideation Suicidal Ideation: No - Homicidal Ideation Homicidal Ideation: No Goal/Treatment Plan - Goal/Treatment Plan Need for Continued Stay: Severe functional impairment Progress Toward Problem(s) and Goals/Treatment Plan: Schizophrenia; Major Neurocognitive Disorder -Continue Risperdal and Aricept -Medicine consult -Individual and group therapy -Psychoeducation -Disposition discussed w/ [facility]; patient will need care home placement when he is psychiatrically stable Estimated Date of D/C: 05/13/18
[2018-05-08] MEDS: Pantoprazole 40 mg EC Tab PO SCH (08:12)
[2018-05-08] MEDS: Insulin Lispro (humaLOG) 100 Units/ml Inj SC SCH ×4 (08:13→21:18)
[2018-05-08] MEDS: Insulin Detemir 100 Units/ml Inj SC SCH (21:21)
[2018-05-09] MEDS: Levothyroxine 50 MCG TAB PO SCH (05:42)
--- NOTE | 2018-05-09 07:49 | CP.PCM.PN ---
<Sultan Edinson - Last Filed: 05/09/18 10:11> Subjective - Date & Time of Evaluation Date of Evaluation: 05/09/18 Time of Evaluation: 07:30 - Subjective Subjective: Patient seen and examined with Dr. Alvarez No acute overnight events. Sleepy comfortably in bed, not in acute distress. Remains afebrile with stable vitals Denies any acute complaints. Objective - Vital Signs/Intake and Output Vital Signs (last 24 hours): Temp Pulse Resp BP Pulse Ox 97.1 F L 92 H 19 120/71 99 05/09/18 06:00 05/09/18 06:00 05/09/18 06:00 05/09/18 06:00 05/08/18 05:20 - Medications Medications: Current Medications Acetaminophen (Tylenol 325mg Tab) 650 mg PO Q4 PRN PRN Reason: Pain, moderate (4-7) Al Hydrox/Mg Hydrox/Simethicone (Maalox Plus 30 Ml) 30 ml PO Q4 PRN PRN Reason: Dyspepsia Aspirin (Aspirin Chewable) 81 mg PO DAILY [facility] Last Admin: 05/08/18 08:11 Dose: 81 mg Atorvastatin Calcium (Lipitor) 20 mg PO [facility] Last Admin: 05/08/18 21:19 Dose: 20 mg Dextrose (Glutose 15) 0 gm PO ONCE PRN; Protocol PRN Reason: Hypoglycemia Protocol Diphenhydramine HCl (Benadryl) 50 mg PO Q6 PRN PRN Reason: sleep, anxiety Diphenhydramine HCl (Benadryl) 50 mg IM Q6 PRN PRN Reason: severe agitation Donepezil HCl (Aricept) 5 mg PO [facility] Last Admin: 05/08/18 21:19 Dose: 5 mg Glipizide (Glucotrol) 10 mg PO DAILY [facility] Last Admin: 05/08/18 08:12 Dose: 10 mg Insulin Detemir (Levemir) 10 units SC [facility] Last Admin: 05/08/18 21:21 Dose: 10 units Insulin Human Lispro (Humalog) 0 units SC [facility]; Protocol Last Admin: 05/08/18 21:18 Dose: Not Given Levothyroxine Sodium (Synthroid) 50 mcg PO DAILY@0630 [facility] Last Admin: 05/09/18 05:42 Dose: 50 mcg Lorazepam (Ativan) 0.5 mg PO Q6 PRN PRN Reason: Anixety/Agitation Stop: 05/16/18 17:50 Lorazepam (Ativan) 1 mg IM Q6 PRN PRN Reason: severe anxiety/aggitation Magnesium Hydroxide (Milk Of Magnesia) 30 ml PO HS PRN PRN Reason: Constipation Metformin HCl (Glucophage) 500 mg PO Q12 [facility] Last Admin: 05/08/18 21:19 Dose: 500 mg Pantoprazole Sodium (Protonix Ec Tab) 40 mg PO DAILY [facility] Last Admin: 05/08/18 08:12 Dose: 40 mg Risperidone (Risperdal Tab) 2 mg PO Q12 [facility] Last Admin: 05/08/18 21:19 Dose: 2 mg Sitagliptin Phosphate (Januvia) 100 mg PO DAILY [facility] Last Admin: 05/08/18 08:12 Dose: 100 mg - Labs Labs: 05/01/18 23:03 05/02/18 01:22 - Constitutional Appears: No Acute Distress, Unkempt - Head Exam Head Exam: NORMAL INSPECTION - Eye Exam Eye Exam: Normal appearance - ENT Exam ENT Exam: Mucous Membranes Moist - Neck Exam Neck Exam: Normal Inspection - Respiratory Exam Respiratory Exam: Clear to Ausculation Bilateral, NORMAL BREATHING PATTERN. absent: Rhonchi, Wheezes - Cardiovascular Exam Cardiovascular Exam: REGULAR RHYTHM, +S1, +S2 - GI/Abdominal Exam GI & Abdominal Exam: Soft, Normal Bowel Sounds. absent: Tenderness - Extremities Exam Extremities Exam: Normal Inspection. absent: Calf Tenderness - Neurological Exam Neurological Exam: Alert, Awake - Skin Skin Exam: Normal Color Assessment and Plan - Assessment and Plan (Free Text) Assessment: 72 year old male with a PMHx of schizoaffective disorder, Major neurocognitive disorder and DM II admitted to psychiatry unit for worsening of schizoaffective disorder. Plan: Schizoaffective disorder and Major neurocognitive disorder -management as per psychiatric team DMII, uncontrolled -HbA1C 12.5 on 05/04/18, previous 7.0 on 02/08/18 -c/w glipizide, sitagliptin -c/w Metformin 500 mg po q12 -c/w Lantus 10 units QHS -sliding scale insulin and hypoglycemia protocol -accucheck q6 hrs -will titrate up Lantus tomorrow if glucose continues to be uncontrolled Hypothyroidism: -TSH 1.16 ON 05/04/18 -c/w synthroid 50 mcg qd -rest of the plan as ordered Patient seen, examined and plan discussed with Dr. Kim Neves, pgy-2 <Agustin Alvarez - Last Filed: 05/12/18 16:59> Objective - Vital Signs/Intake and Output Vital Signs (last 24 hours): Temp Pulse Resp BP Pulse Ox 98 F 72 18 116/74 20 L 05/12/18 15:31 05/12/18 15:31 05/12/18 15:31 05/12/18 15:31 05/09/18 16:09 - Medications Medications: Current Medications Acetaminophen (Tylenol 325mg Tab) 650 mg PO Q4 PRN PRN Reason: Pain, moderate (4-7) Al Hydrox/Mg Hydrox/Simethicone (Maalox Plus 30 Ml) 30 ml PO Q4 PRN PRN Reason: Dyspepsia Aspirin (Aspirin Chewable) 81 mg PO DAILY [facility] Last Admin: 05/12/18 08:20 Dose: 81 mg Atorvastatin Calcium (Lipitor) 20 mg PO [facility] Last Admin: 05/11/18 21:29 Dose: 20 mg Dextrose (Glutose 15) 0 gm PO ONCE PRN; Protocol PRN Reason: Hypoglycemia Protocol Diphenhydramine HCl (Benadryl) 50 mg PO Q6 PRN PRN Reason: sleep, anxiety Diphenhydramine HCl (Benadryl) 50 mg IM Q6 PRN PRN Reason: severe agitation Donepezil HCl (Aricept) 5 mg PO [facility] Last Admin: 05/11/18 21:29 Dose: 5 mg Glipizide (Glucotrol) 10 mg PO DAILY [facility] Last Admin: 05/09/18 08:02 Dose: 10 mg Insulin Detemir (Levemir) 10 units SC HS [facility] Last Admin: 05/11/18 21:30 Dose: 10 units Insulin Human Lispro (Humalog) 0 units SC [facility]; Protocol Last Admin: 05/12/18 16:48 Dose: 2 u Insulin Human Lispro (Humalog) 5 units SC AC [facility] Last Admin: 05/12/18 16:49 Dose: 5 u Levothyroxine Sodium (Synthroid) 50 mcg PO DAILY@0630 [facility] Last Admin: 05/12/18 06:00 Dose: 50 mcg Lorazepam (Ativan) 0.5 mg PO Q6 PRN PRN Reason: Anixety/Agitation Stop: 05/16/18 17:50 Lorazepam (Ativan) 1 mg IM Q6 PRN PRN Reason: severe anxiety/aggitation Magnesium Hydroxide (Milk Of Magnesia) 30 ml PO HS PRN PRN Reason: Constipation Metformin HCl (Glucophage) 500 mg PO Q12 [facility] Last Admin: 05/12/18 08:18 Dose: 500 mg Pantoprazole Sodium (Protonix Ec Tab) 40 mg PO DAILY [facility] Last Admin: 05/12/18 08:18 Dose: 40 mg Risperidone (Risperdal Tab) 2 mg PO Q12 [facility] Last Admin: 05/12/18 08:19 Dose: 2 mg Sitagliptin Phosphate (Januvia) 100 mg PO DAILY [facility] Last Admin: 05/12/18 08:19 Dose: 100 mg - Labs Labs: 05/01/18 23:03 05/02/18 01:22 Assessment and Plan - Assessment and Plan (Free Text) Assessment: Patient was personally seen and examined by me in rounds with residents. Available labs and diagnostic data reviewed. Case, Patient's condition and management plan discussed with residents in rounds. Agree with resident's progress note. Plan: As ordered.
[2018-05-09] MEDS: Insulin Lispro (humaLOG) 100 Units/ml Inj SC SCH ×4 (08:05→21:05)
[2018-05-09] MEDS: Pantoprazole 40 mg EC Tab PO SCH (08:05)
--- NOTE | 2018-05-09 08:39 | PCM.PYCHPN ---
Psychiatric Progress Note - Psychiatric Progress Note Patient seen today, length of contact: Pt evaluated, chart reviewed, case discussed w/ team Patient Chief Complaint: Inability to care for self Problems Identified/Issues Discussed: Patient is at his baseline of functioning. He continues to have poor insight/judgment into his medical and psychiatric illness. Patient is unable to care for himself at this time due to chronic neurocognitive impairments and will be referred for group home placement as decided by [facility]. Patient reports his mood is stable. No AH/VH/paranoia/delusions. Medication Change: No Medical Record Reviewed: Yes Consults ordered or reviewed: Medicine consult Mental Status Examination - Cognitive Function Orientation: Person, Place Memory: Impaired Attention: Poor Concentration: Poor Association: Loose Fund of Knowledge: Poor Decription of patient's judgement and insights: Poor I/J - Mood Mood: Neutral - Affect Affect: Broad - Speech Speech: Appropriate - Formal Thought Process Formal Thought Process: Loosening of associations, Circumstantial Psychotic Thoughts and Behaviors: Denies AH/VH - Suicidal Ideation Suicidal Ideation: No - Homicidal Ideation Homicidal Ideation: No Goal/Treatment Plan - Goal/Treatment Plan Need for Continued Stay: Severe functional impairment Progress Toward Problem(s) and Goals/Treatment Plan: Schizophrenia; Major Neurocognitive Disorder; patient is currently at his baseline of functioning and is psychiatrically stable for referral to intermediate project manager placement. -Continue Risperdal and Aricept -Medicine consult -Individual and group therapy -Psychoeducation -Will start referral to intermediate project manager placement Estimated Date of D/C: 05/13/18
[2018-05-09 16:10] VITALS: O2SAT 20
[2018-05-09] MEDS: Insulin Detemir 100 Units/ml Inj SC SCH (21:04)
[2018-05-10] MEDS: Levothyroxine 50 MCG TAB PO SCH (05:57)
[2018-05-10] MEDS: Pantoprazole 40 mg EC Tab PO SCH (08:25)
[2018-05-10] MEDS: Insulin Lispro (humaLOG) 100 Units/ml Inj SC SCH ×4 (08:30→21:21)
--- NOTE | 2018-05-10 08:35 | PCM.PYCHPN ---
Psychiatric Progress Note - Psychiatric Progress Note Patient seen today, length of contact: Pt evaluated, chart reviewed, case discussed w/ team Patient Chief Complaint: Inability to care for self Problems Identified/Issues Discussed: No new events overnight. Patient is at his baseline of functioning. He continues to have poor insight/judgment into his medical and psychiatric illness. Patient is unable to care for himself at this time due to chronic neurocognitive impairments and will be referred for [facility] placement as decided by [facility]. Patient reports his mood is stable. No AH/VH/paranoia/delusions. Medication Change: No Medical Record Reviewed: Yes Consults ordered or reviewed: Medicine consult Mental Status Examination - Cognitive Function Orientation: Person, Place Memory: Impaired Attention: Poor Concentration: Poor Association: Loose Fund of Knowledge: Poor Decription of patient's judgement and insights: Poor I/J - Mood Mood: Neutral - Affect Affect: Broad - Speech Speech: Appropriate - Formal Thought Process Formal Thought Process: Loosening of associations, Circumstantial Psychotic Thoughts and Behaviors: Denies AH/VH - Suicidal Ideation Suicidal Ideation: No - Homicidal Ideation Homicidal Ideation: No Goal/Treatment Plan - Goal/Treatment Plan Need for Continued Stay: Severe functional impairment Progress Toward Problem(s) and Goals/Treatment Plan: Major Neurocognitive Disorder; Schizophrenia; patient is currently at his baseline of functioning and is psychiatrically stable for referral to [facility]eno terminal operator placement. -Continue Risperdal and Aricept -Medicine consult -Individual and group therapy -Psychoeducation -Disposition- pending correction placement Estimated Date of D/C: 05/13/18
--- NOTE | 2018-05-10 11:02 | CP.PCM.PN ---
<Shravan Petersen - Last Filed: 05/10/18 11:02> Subjective - Date & Time of Evaluation Date of Evaluation: 05/10/18 Time of Evaluation: 07:00 - Subjective Subjective: Patient seen and examined this morning at bedside with Dr. Alvarez. NAD, No acute overnight event. Uncontrolled BS but denies any headaches, palpitations, chest pain or SOB. Objective - Vital Signs/Intake and Output Vital Signs (last 24 hours): Temp Pulse Resp BP Pulse Ox 97.1 F L 80 18 110/69 20 L 05/10/18 05:51 05/10/18 05:51 05/10/18 05:51 05/10/18 05:51 05/09/18 16:09 - Medications Medications: Current Medications Acetaminophen (Tylenol 325mg Tab) 650 mg PO Q4 PRN PRN Reason: Pain, moderate (4-7) Al Hydrox/Mg Hydrox/Simethicone (Maalox Plus 30 Ml) 30 ml PO Q4 PRN PRN Reason: Dyspepsia Aspirin (Aspirin Chewable) 81 mg PO DAILY [facility] Last Admin: 05/10/18 08:25 Dose: 81 mg Atorvastatin Calcium (Lipitor) 20 mg PO [facility] Last Admin: 05/09/18 21:04 Dose: 20 mg Dextrose (Glutose 15) 0 gm PO ONCE PRN; Protocol PRN Reason: Hypoglycemia Protocol Diphenhydramine HCl (Benadryl) 50 mg PO Q6 PRN PRN Reason: sleep, anxiety Diphenhydramine HCl (Benadryl) 50 mg IM Q6 PRN PRN Reason: severe agitation Donepezil HCl (Aricept) 5 mg PO [facility] Last Admin: 05/09/18 21:04 Dose: 5 mg Glipizide (Glucotrol) 10 mg PO DAILY [facility] Last Admin: 05/09/18 08:02 Dose: 10 mg Insulin Detemir (Levemir) 10 units SC [facility] Last Admin: 05/09/18 21:04 Dose: 10 units Insulin Human Lispro (Humalog) 0 units SC [facility]; Protocol Last Admin: 05/10/18 08:30 Dose: 2 u Levothyroxine Sodium (Synthroid) 50 mcg PO DAILY@0630 [facility] Last Admin: 05/10/18 05:57 Dose: 50 mcg Lorazepam (Ativan) 0.5 mg PO Q6 PRN PRN Reason: Anixety/Agitation Stop: 05/16/18 17:50 Lorazepam (Ativan) 1 mg IM Q6 PRN PRN Reason: severe anxiety/aggitation Magnesium Hydroxide (Milk Of Magnesia) 30 ml PO HS PRN PRN Reason: Constipation Metformin HCl (Glucophage) 500 mg PO Q12 [facility] Last Admin: 05/10/18 08:26 Dose: 500 mg Pantoprazole Sodium (Protonix Ec Tab) 40 mg PO DAILY [facility] Last Admin: 05/10/18 08:25 Dose: 40 mg Risperidone (Risperdal Tab) 2 mg PO Q12 [facility] Last Admin: 05/10/18 08:25 Dose: 2 mg Sitagliptin Phosphate (Januvia) 100 mg PO DAILY [facility] Last Admin: 05/10/18 08:25 Dose: 100 mg - Labs Labs: 05/01/18 23:03 05/02/18 01:22 - Constitutional Appears: No Acute Distress - Head Exam Head Exam: NORMAL INSPECTION - Eye Exam Eye Exam: Normal appearance Pupil Exam: NORMAL ACCOMODATION - ENT Exam ENT Exam: Mucous Membranes Moist - Neck Exam Neck Exam: Normal Inspection - Respiratory Exam Respiratory Exam: Clear to Ausculation Bilateral, NORMAL BREATHING PATTERN - Cardiovascular Exam Cardiovascular Exam: REGULAR RHYTHM, +S1, +S2 - GI/Abdominal Exam GI & Abdominal Exam: Soft, Normal Bowel Sounds. absent: Tenderness - Neurological Exam Neurological Exam: Alert, Awake - Psychiatric Exam Psychiatric exam: Normal Affect - Skin Skin Exam: Normal Color Assessment and Plan - Assessment and Plan (Free Text) Assessment: A/P: 72 year old male with a PMHx of schizoaffective disorder, Major neurocognitive disorder and DM II admitted to psychiatry unit for worsening of schizoaffective disorder. DMII, uncontrolled -HbA1C 12.5 on 05/04/18, previous 7.0 on 02/08/18 -c/w sitagliptin, will d/c glipizide for now -c/w Metformin 500 mg po q12 -c/w Lantus 10 units QHS -sliding scale insulin and hypoglycemia protocol -accucheck q6 hrs -will titrate up Lantus if glucose continues to be uncontrolled Hypothyroidism -TSH 1.16 ON 05/04/18 -c/w synthroid 50 mcg qd -rest of the plan as ordered Schizoaffective disorder and Major neurocognitive disorder -management as per psychiatric team <Agustin Alvarez - Last Filed: 05/12/18 16:58> Objective - Vital Signs/Intake and Output Vital Signs (last 24 hours): Temp Pulse Resp BP Pulse Ox 98 F 72 18 116/74 20 L 05/12/18 15:31 05/12/18 15:31 05/12/18 15:31 05/12/18 15:31 05/09/18 16:09 - Medications Medications: Current Medications Acetaminophen (Tylenol 325mg Tab) 650 mg PO Q4 PRN PRN Reason: Pain, moderate (4-7) Al Hydrox/Mg Hydrox/Simethicone (Maalox Plus 30 Ml) 30 ml PO Q4 PRN PRN Reason: Dyspepsia Aspirin (Aspirin Chewable) 81 mg PO DAILY [facility] Last Admin: 05/12/18 08:20 Dose: 81 mg Atorvastatin Calcium (Lipitor) 20 mg PO [facility] Last Admin: 05/11/18 21:29 Dose: 20 mg Dextrose (Glutose 15) 0 gm PO ONCE PRN; Protocol PRN Reason: Hypoglycemia Protocol Diphenhydramine HCl (Benadryl) 50 mg PO Q6 PRN PRN Reason: sleep, anxiety Diphenhydramine HCl (Benadryl) 50 mg IM Q6 PRN PRN Reason: severe agitation Donepezil HCl (Aricept) 5 mg PO [facility] Last Admin: 05/11/18 21:29 Dose: 5 mg Glipizide (Glucotrol) 10 mg PO DAILY [facility] Last Admin: 05/09/18 08:02 Dose: 10 mg Insulin Detemir (Levemir) 10 units SC [facility] Last Admin: 05/11/18 21:30 Dose: 10 units Insulin Human Lispro (Humalog) 0 units SC [facility]; Protocol Last Admin: 05/12/18 16:48 Dose: 2 u Insulin Human Lispro (Humalog) 5 units SC [facility] Last Admin: 05/12/18 16:49 Dose: 5 u Levothyroxine Sodium (Synthroid) 50 mcg PO DAILY@0630 [facility] Last Admin: 05/12/18 06:00 Dose: 50 mcg Lorazepam (Ativan) 0.5 mg PO Q6 PRN PRN Reason: Anixety/Agitation Stop: 05/16/18 17:50 Lorazepam (Ativan) 1 mg IM Q6 PRN PRN Reason: severe anxiety/aggitation Magnesium Hydroxide (Milk Of Magnesia) 30 ml PO HS PRN PRN Reason: Constipation Metformin HCl (Glucophage) 500 mg PO Q12 [facility] Last Admin: 05/12/18 08:18 Dose: 500 mg Pantoprazole Sodium (Protonix Ec Tab) 40 mg PO DAILY [facility] Last Admin: 05/12/18 08:18 Dose: 40 mg Risperidone (Risperdal Tab) 2 mg PO Q12 [facility] Last Admin: 05/12/18 08:19 Dose: 2 mg Sitagliptin Phosphate (Januvia) 100 mg PO DAILY [facility] Last Admin: 05/12/18 08:19 Dose: 100 mg - Labs Labs: 05/01/18 23:03 05/02/18 01:22 Assessment and Plan - Assessment and Plan (Free Text) Assessment: Patient was personally seen and examined by me in rounds with residents. Available labs and diagnostic data reviewed. Case, Patient's condition and management plan discussed with residents in rounds. Agree with resident's progress note. Plan: As ordered.
[2018-05-10] MEDS: Insulin Detemir 100 Units/ml Inj SC SCH (21:21)
[2018-05-11] MEDS: Levothyroxine 50 MCG TAB PO SCH (05:44)
[2018-05-11] MEDS: Pantoprazole 40 mg EC Tab PO SCH (08:33)
[2018-05-11] MEDS: Insulin Lispro (humaLOG) 100 Units/ml Inj SC SCH ×4 (08:33→21:29)
--- NOTE | 2018-05-11 14:38 | PCM.PYCHPN ---
Psychiatric Progress Note - Psychiatric Progress Note Patient seen today, length of contact: Pt evaluated, chart reviewed, case discussed w/ team Patient Chief Complaint: I am ok Problems Identified/Issues Discussed: pt appears superficially cooperative, limited insight into illness Patient is unable to care for himself at this time due to chronic neurocognitive impairments and will be referred for snf placement as decided by [facility]. Patient reports his mood is stable. No AH/VH/paranoia/delusions. Medication Change: No Medical Record Reviewed: Yes Mental Status Examination - Cognitive Function Orientation: Person, Place Memory: Impaired Attention: Poor Concentration: Poor Association: Loose Fund of Knowledge: Poor - Mood Mood: Neutral - Affect Affect: Broad - Speech Speech: Appropriate - Formal Thought Process Formal Thought Process: Loosening of associations, Circumstantial - Suicidal Ideation Suicidal Ideation: No - Homicidal Ideation Homicidal Ideation: No Goal/Treatment Plan - Goal/Treatment Plan Need for Continued Stay: Severe functional impairment Progress Toward Problem(s) and Goals/Treatment Plan: continue current management Estimated Date of D/C: 05/13/18
[2018-05-11] MEDS: Insulin Detemir 100 Units/ml Inj SC SCH (21:30)
[2018-05-12] MEDS: Levothyroxine 50 MCG TAB PO SCH (06:00)
[2018-05-12] MEDS: Pantoprazole 40 mg EC Tab PO SCH (08:18)
[2018-05-12] MEDS: Insulin Lispro (humaLOG) 100 Units/ml Inj SC SCH ×7 (08:21→21:21)
--- NOTE | 2018-05-12 10:40 | PCM.PYCHPN ---
Psychiatric Progress Note - Psychiatric Progress Note Patient seen today, length of contact: Pt evaluated, chart reviewed, case discussed w/ team Patient Chief Complaint: I am ok Problems Identified/Issues Discussed: pt on evaluation presenting with under productive speech and constricted affect , compliant with medications Patient reports his mood is stable. denied perceptual disturbances, denied S/H I Medication Change: No Medical Record Reviewed: Yes Mental Status Examination - Cognitive Function Orientation: Person, Place Memory: Impaired Attention: Poor Concentration: Poor Association: Loose Fund of Knowledge: Poor - Mood Mood: Neutral - Affect Affect: Broad - Speech Speech: Appropriate - Formal Thought Process Formal Thought Process: Loosening of associations, Circumstantial - Suicidal Ideation Suicidal Ideation: No - Homicidal Ideation Homicidal Ideation: No Goal/Treatment Plan - Goal/Treatment Plan Need for Continued Stay: Severe functional impairment Progress Toward Problem(s) and Goals/Treatment Plan: continue current management Estimated Date of D/C: 05/13/18
--- NOTE | 2018-05-12 18:25 | PCM.BM ---
Treatment Plan Problems - Problems identified on initial assessmt social isolation Date Initiated: 05/02/18 Time Initiated: 16:22 Date resolved: 05/05/18 Assessment reference: NA Status: Active Priority: 1 medication nonadherence Date Initiated: 05/02/18 Time Initiated: 16:23 Date resolved: 05/05/18 Assessment reference: NA Status: Active Priority: 2 altered thought process Date Initiated: 05/02/18 Time Initiated: 16:24 Date resolved: 05/05/18 Assessment reference: NA Status: Active Priority: 3 knowledge deficit Date Initiated: 05/02/18 Time Initiated: 16:25 Date resolved: 05/05/18 Assessment reference: NA Status: Active Priority: 4 Treatment assets and liabiliti Patient Assests: adapts well, cooperative, negotiates basic needs Patient Liabilities: live alone, poor support system, dietary restrictions, medical problems, imparied memory - Milieu Protocol Maintain good personal hygiene: every shift Encourage regular showers, every shift Remind patient to perform daily oral care, every shift Assist patient to perform ADL's Maintain personal safety: every shift Educate patient to report safety concerns to staff, every shift Monitor environment for contraband/sharps Medication safety: Monitor for expected outcome, potential side effects: every shift, Assess barriers to learning: every shift, Assess readiness for medication education: every shift Milieu Narrative: continue current management Family Contact Family involvement: No known Family/SO Family contact: Other ([employer] - Tre Polk (case resource manager)) Family contacted how many times per week?: 2 Family contact comment: [phone] - Outside Agency [facility] involvment: Information-sharing Agency contact name: Joan - social service liaison Agency contact number: [phone] - Goals for Treatment Patient goals for treatment: Pt will improve overall mood. Pt will attend clinical and activity groups. Pt will be compliant with medications. Pt will improve personal hygiene and appropriate care. Pt will shower daily. Discharge/Continuing Care - Education Needs Education Needs: Patient Medication, Patient Diagnosis/Disease Process, Patient Coping Skills, Patient Placement options, Patient Community resources, Patient Activities of Daily Living, Patient Health Practices/Safety, Patient Personal Hygiene/Grooming, Patient Aftercare Safety Plan - Discharge Discharge Criteria: Tolerates medication w/o severe side effects, Free of paranoid thoughts, Free of agitation, Normal sleep pattern, Ability to care for self, Reduction of target symptoms Discharge to:: Home, [facility] - Additional Comments 05/03/18 14:03 Pt discussed in team meeting. Pt unable to attend due to be observed sleeping. Pt was medicated earlier in the morning due to screaming and yelling behaviors. Staff was unable to de-escalate pt verbally and pt required to be medicated. [facility] due to screaming, yelling, and paranoid bx. Pt believes that the [place] cocaine cartel is after him. Pt also reported that he is 28 years old but looks older because he has to disguise himself from the cartel. Pts's hygiene and grooming is poor. Pt is unkempt and dishevel. Unclear if pt was compliant with prescribed medications. Pt is linked to [employer] and [employer] to meet with pt and review medications. Pt's medical and social issues reviewed and discussed. SW will contact [facility] case resource manager and [employer] for collateral information. - Treatment Team Participation Patient/Family/SO Statement: continue current management Discussed with Family/SO: No Was Patient/Family/SO present at Treatment Team Meeting: Yes Treatment Plan Review - Problem social isolation Time Initiated: 16:22 medication nonadherence Time Initiated: 16:23 altered thought process Time Initiated: 16:24 knowledge deficit Time Initiated: 16:25 - Discharge / Continuing Care Discharge to:: Custodial Facility Behavioral Health Services: Residential treatment Health Needs: Follow up care/test, Medications/Rx (Pt seen for review on 05/10/18. Pt reported he is "alright." Pending transfer to [facility]pc discussed. )
[2018-05-12] MEDS: Insulin Detemir 100 Units/ml Inj SC SCH (21:22)
[2018-05-13] MEDS: Levothyroxine 50 MCG TAB PO SCH (05:55)
--- NOTE | 2018-05-13 08:21 | PN ---
DATE: 05/12/2018 SUBJECTIVE: The patient is seen and examined. Interim events noted. Psychiatric followup and intervention noted and appreciated. The patient remains in geropsych unit. Feels okay. Denies any specific complaint. The patient is not a good historian. No specific issue reported by nursing staff other than elevated blood sugar. PHYSICAL EXAMINATION: GENERAL: The patient is in no acute distress. VITAL SIGNS: Stable. HEART: S1, S2, normal and regular. LUNGS: Good bilateral air exchange. ABDOMEN: Soft, nontender. EXTREMITIES: No edema. No calf swelling. No tenderness. No acute ischemia. CFD ENGINEER: Essentially unchanged. DIAGNOSTIC DATA: Available diagnostic data reviewed. Accu-Cheks are even up to 400 after the patient ate. ASSESSMENT AND PLAN: Overall, the patient is medically stable. Blood sugar remains the patient is not able to comprehend much. Plan as ordered. Agustin Alvarez MD
[2018-05-13] MEDS: Pantoprazole 40 mg EC Tab PO SCH (08:28)
[2018-05-13] MEDS: Insulin Lispro (humaLOG) 100 Units/ml Inj SC SCH ×8 (08:29→21:17)
--- NOTE | 2018-05-13 08:29 | PN ---
DATE: 05/11/2018 SUBJECTIVE: The patient is seen and examined. Interim events noted. The patient remains in the regular medical floor with telemetry monitoring. The patient feels okay. Denies any specific complaints of chest pain, nausea, or shortness of breath. PHYSICAL EXAMINATION: GENERAL: The patient is in no acute distress. VITAL SIGNS: Stable. HEART: S1 and S2, normal and regular. LUNGS: Good bilateral air exchange. ABDOMEN: Soft, nontender. DIAGNOSTIC DATA: Available diagnostic data reviewed. PLAN: Accu-Chek are improving. Overall, the patient is medically stable. Plan as ordered. Agustin Alvarez MD
--- NOTE | 2018-05-13 09:54 | PN ---
DATE: 05/13/2018 MEDICAL FOLLOWUP SUBJECTIVE: The patient is seen and examined. Interim events noted. Psychiatric followup and intervention noted and appreciated. The patient remains in geropsych Unit. Awake and responsive. Feels okay. Denies any specific complaints. No specific issues reported by nursing staff. PHYSICAL EXAMINATION: GENERAL: The patient is in no acute distress. VITAL SIGNS: Stable. HEART: S1 and S2 normal and regular. LUNGS: Good bilateral air exchange. ABDOMEN: Soft, nontender. EXTREMITIES: No edema. No calf swelling. No tenderness. No acute ischemia. CENTRAL NERVOUS SYSTEM: Essentially unchanged. DIAGNOSTIC DATA: Available diagnostic data reviewed. Accu-Cheks are acceptable. ASSESSMENT AND PLAN: Overall, the patient is slowly improving. Sugar is getting better control. Plan as ordered. Agustin Alvarez MD
--- NOTE | 2018-05-13 10:06 | PCM.PYCHPN ---
Psychiatric Progress Note - Psychiatric Progress Note Patient seen today, length of contact: Pt evaluated, chart reviewed, case discussed w/ team Patient Chief Complaint: Inability to care for self Problems Identified/Issues Discussed: No new events over the weekend. Patient is at his baseline of functioning. He continues to have poor insight/judgment into his medical and psychiatric illness. Patient is unable to care for himself at this time due to chronic neur ocognitive impairments and will be referred for rn long term care placement as decided by [facility]. Patient reports his mood is stable. No AH/VH/paranoia/delusions. No behavioral disturbances. Medication Change: No Medical Record Reviewed: Yes Consults ordered or reviewed: Medicine consult Mental Status Examination - Cognitive Function Orientation: Person, Place Memory: Impaired Attention: Poor Concentration: Poor Association: Loose Fund of Knowledge: Poor Decription of patient's judgement and insights: Chronic limitations in insight/judgment due to neurocognitive impairment - Mood Mood: Neutral - Affect Affect: Broad - Speech Speech: Appropriate - Formal Thought Process Formal Thought Process: Loosening of associations, Circumstantial Psychotic Thoughts and Behaviors: Denies AH/VH/paranoia/delusions - Suicidal Ideation Suicidal Ideation: No - Homicidal Ideation Homicidal Ideation: No Goal/Treatment Plan - Goal/Treatment Plan Need for Continued Stay: Severe functional impairment Progress Toward Problem(s) and Goals/Treatment Plan: Major Neurocognitive Disorder; Schizophrenia; patient is currently at his baseline of functioning and is psychiatrically stable for referral to prison placement. -Continue Risperdal and Aricept -Medicine consult -Individual and group therapy -Psychoeducation -Disposition- pending assisted placement Estimated Date of D/C: 05/16/18
[2018-05-13] MEDS: Insulin Detemir 100 Units/ml Inj SC SCH (21:16)
[2018-05-14] MEDS: Levothyroxine 50 MCG TAB PO SCH (05:59)
[2018-05-14 06:14] VITALS: RESP 18
--- NOTE | 2018-05-14 08:12 | PCM.PYCHPN ---
Psychiatric Progress Note - Psychiatric Progress Note Patient seen today, length of contact: Pt evaluated, chart reviewed, case discussed w/ team Patient Chief Complaint: Inability to care for self Problems Identified/Issues Discussed: No new events overnight. Patient is at his baseline of functioning. He continues to have poor insight/judgment into his medical and psychiatric illness. Patient is unable to care for himself at this time due to chronic neurocognitive impairments and will be referred for halfway placement as decided by [facility]. Patient reports his mood is stable. No AH/VH/paranoia/delusions. No behavioral disturbances. Medication Change: No Medical Record Reviewed: Yes Consults ordered or reviewed: Medicine consult Mental Status Examination - Cognitive Function Orientation: Person, Place Memory: Impaired Attention: Poor Concentration: Poor Association: Loose Fund of Knowledge: Poor Decription of patient's judgement and insights: Chronic limitations in insight/judgment due to neurocognitive impairment - Mood Mood: Neutral - Affect Affect: Broad - Speech Speech: Appropriate - Formal Thought Process Formal Thought Process: Loosening of associations, Circumstantial Psychotic Thoughts and Behaviors: Denies AH/VH/paranoia/delusions - Suicidal Ideation Suicidal Ideation: No - Homicidal Ideation Homicidal Ideation: No Goal/Treatment Plan - Goal/Treatment Plan Need for Continued Stay: Severe functional impairment Progress Toward Problem(s) and Goals/Treatment Plan: Major Neurocognitive Disorder; Schizophrenia; patient is currently at his baseline of functioning and is psychiatrically stable for referral to halfway placement. -Continue Risperdal and Aricept -Medicine consult -Individual and group therapy -Psychoeducation -Disposition- pending alf placement
[2018-05-14] MEDS: Insulin Lispro (humaLOG) 100 Units/ml Inj SC SCH ×7 (08:16→21:18)
[2018-05-14] MEDS: Pantoprazole 40 mg EC Tab PO SCH (08:17)
--- NOTE | 2018-05-14 08:44 | PN ---
DATE: 05/14/2018 SUBJECTIVE: The patient is seen and examined. Interim events noted. The patient remains in geropsych unit. Awake, responsive, ambulatory. Feels okay. Denies any specific complaint. No chest pain or shortness of breath. PHYSICAL EXAMINATION: GENERAL: The patient is in no acute distress. VITAL SIGNS: Stable. Physical exam is essentially unchanged. DIAGNOSTIC DATA: Available diagnostic data reviewed. Accu-Cheks are much better and acceptable, all less than 200. ASSESSMENT AND PLAN: Overall, the patient is medically stable. Plan as ordered. Agustin Alvarez MD
[2018-05-14] MEDS: Insulin Detemir 100 Units/ml Inj SC SCH (21:17)
[2018-05-15] MEDS: Levothyroxine 50 MCG TAB PO SCH (05:34)
[2018-05-15] MEDS ORDERED: Glucagon Recombinant 1 mg Inj IM PRN (07:36)
[2018-05-15] MEDS: Pantoprazole 40 mg EC Tab PO SCH (08:13)
[2018-05-15] MEDS: Insulin Lispro (humaLOG) 100 Units/ml Inj SC SCH ×4 (08:18→12:27)
--- NOTE | 2018-05-15 09:04 | CP.PCM.PN ---
Subjective - Date & Time of Evaluation Date of Evaluation: 05/15/18 Time of Evaluation: 08:30 - Subjective Subjective: Patient seen and examined this morning at bedside with Dr. Alvarez. NAD, No acute overnight event, walking comfortably in hallway. Uncontrolled BS but denies any headaches, palpitations, chest pain or SOB. Medically stable. Objective - Vital Signs/Intake and Output Vital Signs (last 24 hours): Temp Pulse Resp BP Pulse Ox 97.2 F L 77 18 126/76 20 L 05/15/18 06:00 05/15/18 06:00 05/15/18 06:00 05/15/18 06:00 05/09/18 16:09 - Medications Medications: Current Medications Acetaminophen (Tylenol 325mg Tab) 650 mg PO Q4 PRN PRN Reason: Pain, moderate (4-7) Al Hydrox/Mg Hydrox/Simethicone (Maalox Plus 30 Ml) 30 ml PO Q4 PRN PRN Reason: Dyspepsia Aspirin (Aspirin Chewable) 81 mg PO DAILY [facility] Last Admin: 05/15/18 08:14 Dose: 81 mg Atorvastatin Calcium (Lipitor) 20 mg PO HS [facility] Last Admin: 05/14/18 21:17 Dose: 20 mg Dextrose (Glutose 15) 0 gm PO ONCE PRN; Protocol PRN Reason: Hypoglycemia Protocol Dextrose (Glutose 15) 0 gm PO ONCE PRN; Protocol PRN Reason: Hypoglycemia Protocol Diphenhydramine HCl (Benadryl) 50 mg PO Q6 PRN PRN Reason: sleep, anxiety Diphenhydramine HCl (Benadryl) 50 mg IM Q6 PRN PRN Reason: severe agitation Donepezil HCl (Aricept) 5 mg PO [facility] Last Admin: 05/14/18 21:17 Dose: 5 mg Glipizide (Glucotrol) 10 mg PO DAILY [facility] Last Admin: 05/09/18 08:02 Dose: 10 mg Glucagon (Glucagen Diagnostic Kit) 0 mg IM STAT PRN; Protocol PRN Reason: Hypoglycemia Protocol Insulin Detemir (Levemir) 14 units SC HS [facility] Insulin Human Lispro (Humalog) 0 units SC ACHS [facility]; Protocol Last Admin: 05/15/18 08:18 Dose: 2 u Insulin Human Lispro (Humalog) 5 units SC AC [facility] Last Admin: 05/15/18 08:18 Dose: 5 u Levothyroxine Sodium (Synthroid) 50 mcg PO DAILY@0630 [facility] Last Admin: 05/15/18 05:34 Dose: 50 mcg Lorazepam (Ativan) 0.5 mg PO Q6 PRN PRN Reason: Anixety/Agitation Stop: 05/16/18 17:50 Lorazepam (Ativan) 1 mg IM Q6 PRN PRN Reason: severe anxiety/aggitation Magnesium Hydroxide (Milk Of Magnesia) 30 ml PO HS PRN PRN Reason: Constipation Metformin HCl (Glucophage) 500 mg PO Q12 [facility] Last Admin: 05/15/18 08:13 Dose: 500 mg Pantoprazole Sodium (Protonix Ec Tab) 40 mg PO DAILY [facility] Last Admin: 05/15/18 08:13 Dose: 40 mg Risperidone (Risperdal Tab) 2 mg PO Q12 [facility] Last Admin: 05/15/18 08:14 Dose: 2 mg Sitagliptin Phosphate (Januvia) 100 mg PO DAILY [facility] Last Admin: 05/15/18 08:15 Dose: 100 mg - Labs Labs: 05/01/18 23:03 05/02/18 01:22 - Constitutional Appears: No Acute Distress - Head Exam Head Exam: NORMAL INSPECTION - Eye Exam Eye Exam: Normal appearance, PERRL Pupil Exam: NORMAL ACCOMODATION - ENT Exam ENT Exam: Mucous Membranes Moist - Neck Exam Neck Exam: Normal Inspection - Respiratory Exam Respiratory Exam: Clear to Ausculation Bilateral, NORMAL BREATHING PATTERN - Cardiovascular Exam Cardiovascular Exam: REGULAR RHYTHM, +S1, +S2 - GI/Abdominal Exam GI & Abdominal Exam: Soft, Normal Bowel Sounds - Extremities Exam Extremities Exam: Normal Inspection - Back Exam Back Exam: NORMAL INSPECTION - Neurological Exam Neurological Exam: Alert, Awake, Oriented x3 - Psychiatric Exam Psychiatric exam: Normal Affect - Skin Skin Exam: Normal Color Assessment and Plan - Assessment and Plan (Free Text) Assessment: A/P: 72 year old male with a PMHx of schizoaffective disorder, Major neurocognitive disorder and DM II admitted to psychiatry unit for worsening of schizoaffective disorder. DMII, uncontrolled -HbA1C 12.5 on 05/04/18, previous 7.0 on 02/08/18 -c/w sitagliptin, will d/c glipizide for now -c/w Metformin 500 mg po q12 -Change Lantus 10 units QHS to 14 U QHS -sliding scale insulin and hypoglycemia protocol -accucheck q6 hrs Hypothyroidism -TSH 1.16 ON 05/04/18 -c/w synthroid 50 mcg qd -rest of the plan as ordered Schizoaffective disorder and Major neurocognitive disorder -management as per psychiatric team Case discussed with Dr. Alvarez
[2018-05-15 10:18] VITALS: BP 126/76; PULSE 77; TEMP 97.2
--- NOTE | 2018-05-15 10:35 | PCM.PYCHPN ---
Psychiatric Progress Note - Psychiatric Progress Note Patient seen today, length of contact: Pt evaluated, chart reviewed, case discussed w/ team Patient Chief Complaint: Inability to care for self Problems Identified/Issues Discussed: No new events. Patient is at his baseline of functioning. He continues to have poor insight/judgment into his medical and psychiatric illness. Patient is unable to care for himself at this time due to chronic neurocognitive impair ments and will be referred for coach wirer placement as decided by [facility]. Patient reports his mood is stable. No AH/VH/paranoia/delusions. No behavioral disturbances. Medication Change: No Medical Record Reviewed: Yes Consults ordered or reviewed: Medicine consult Mental Status Examination - Cognitive Function Orientation: Person, Place Memory: Impaired Attention: Poor Concentration: Poor Association: Loose Fund of Knowledge: Poor Decription of patient's judgement and insights: Chronic limitations in insight/judgment due to neurocognitive impairment - Mood Mood: Neutral - Affect Affect: Broad - Speech Speech: Appropriate - Formal Thought Process Formal Thought Process: Loosening of associations, Circumstantial Psychotic Thoughts and Behaviors: Denies AH/VH/paranoia/delusions - Suicidal Ideation Suicidal Ideation: No - Homicidal Ideation Homicidal Ideation: No Goal/Treatment Plan - Goal/Treatment Plan Need for Continued Stay: Severe functional impairment Progress Toward Problem(s) and Goals/Treatment Plan: Major Neurocognitive Disorder; Schizophrenia; patient is currently at his baseline of functioning and is psychiatrically stable for referral to intermediate placement. -Continue Risperdal and Aricept -Medicine consult -Individual and group therapy -Psychoeducation -Disposition- pending half-way placement
--- NOTE | 2018-05-15 11:11 | PCM.PYCHDC ---
Mental Status Examination - Mental Status Examination Orientation: Person, Place Memory: Impaired Mood: Neutral Affect: Broad Speech: Appropriate Attention: Poor Concentration: Poor Association: Loose Fund of Knowledge: Poor Formal Thought Process: Loosening of associations Description of patient's judgement and insight: Chronic limitations in insight/judgment due to neurocognitive impairment Psychotic Thoughts and Behaviors: Denies AH/VH/paranoia/delusions Suicidal Ideation: No Current Homicidal Ideation?: No Discharge Summary - Discharge Note Reason for Hospitalization: PT PRESENTED A 72Y/O MALE BROUGHT TO THIS ER BY MOBILE CRISIS DUE TO EXHIBITING BIZARRE BEHAVIORS IN HIS HOME. PT REPORTED THAT HE WAS AT HOME MINDING HIS BUSINESS AND TALKING WITH HIMSELF WHEN THE POLICE SHOWED UP WITH THIS GIRL AND DEMANDED THAT HE COME WITH THEM. HE REPORTED THAT HE WAS TRYING TO TELL THE POLICE THAT THE [employer] WAS AFTER HIM BUT THEY WOULD NOT LISTEN SO HE STARTED TO YELL AND HIT HIS CHEST TO GET THEIR ATTENTION. HE REPORTED THAT HE WAS TELLING THE POLICE TO PUT HIM IN THE ELECTRIC CHAIR SO HE COULD QUICKLY BECAUSE IF THE [employer] GETS A HOLD OF HIM THEY ARE GOING TO TORTURE HIM AND KILL HIM SLOWLY. PT WAS ASKED HI AGE AND HE REPORTED THAT HE IS REALLY 28 HOWEVER HE HAS DISGUISED HIMSELF TO LOOK LIKE AN OLD MAN IN ORDER TO HIDE FROM THE CARTE[employer]. PT REPORTED THAT HE HAS A NURSE THAT COMES TO HIS HOME TWO TIMES A DAY TO GIVE HIM HIS MEDICATIONS. HE REPORTED THAT HE KNOWS THAT HE TAKES 7 PILLS BUT HE DOES NOT KNOW WHAT THEY ARE. PT REPORTS THAT HE TAKES HIS MEDICATIONS. AT THE TIME OF ASSESSMENT, HE WAS CALM, COOPERATIVE AND BEHAVIORALLY CONTROLLED. SPEECH WAS AT A NORMAL RATE AND TONE. PSYCHOMOTOR SKILLS WERE WITHIN NORMAL LIMITS. HIS THOUGHT PROCESS WAS ILLOGICAL. HIS THOUGHT CONTENT WAS INCLUSIVE OF PERCEPTUAL DELUSIONS INDICATED ABOVE. HE DENIED SI/HI OR ANY THOUGHTS OF SELF HARM. HE ADMITS TO HAVING CONVERSATIONS WITH HIMSELF HOWEVER DENIED HALLUCINATIONS. PT WAS NOT OBSERVED TO BE RESPONDING TO INTERNAL/EXTERNAL STIMULI AT THIS TIME; HOWEVER STAFFING EXECUTIVE IS NOT PREPARED TO RULE OUT A/V/T HALLUCINATIONS. PT DISPLAYS OVERT SIGNSI OF PSYCHOSIS AND PSYCHIATRIC DANGEROUSNESS. HE WAS NOT IN ACUTE CRISIS OR MENTAL DISTRESS. THE PT WAS ALERT AND ORIENTED TO PERSON AND PLACE BUT NOT TIME. HE WAS SOMEWHAT POORLY GROOMED. HIS HYGIENE REQUIRED SIGNIFICANT IMPROVEMENT AND HE APPEARED TO BE FRAIL AND UNDERWEIGHT. HIS GAIT WAS NOT GAUGED AT THE TIME OF ASSESSMENT. HE REPORTED NO SIGNIFICANT SLEEP OR APPETITE DISTURBANCES. HIS MOOD WAS CALM AND HIS AFFECT WAS STABLE. IT SHOULD BE NOTED THAT THE PT IS ALSO TANGENTIAL WITH FLIGHT OF IDEAS. HE IS ALSO PARANOID AND DELUSIONAL. MEMORY AND EYE CONTACT WERE POOR. INSIGHT AND JUDGMENT WERE NOTED TO BE IMPAIRED. PT SCORED A 3 ON HIS SUICIDE ASSESSMENT WHICH INDICATES LOW RISK. PT APPEARS TO BE EXHIBITING MARKED DETERIORATIONS IN HIS COGNITIVE ABILITIES TO FUNCTION. ADDITIONALLY PT APPEARS TO BE SIGNIFICANTLY DECOMPENSATED AND IN DIRE NEED OF STABILIZATION. Laboratory Data: Abnormal Lab Results 05/14/18 05/14/18 05/14/18 15:50 15:50 20:22 POC Glucose (mg/dL) 291 H 291 H 262 H 05/14/18 05/15/18 20:22 05:36 POC Glucose (mg/dL) 262 H 188 H Consultations:: List each consultation separately and include: 1. Reason for request. 2. Findings. 3. Follow-up Consultations: Medicine consult Summary of Hospital Course include:: 1. Description of specific treatment plan utilized for patients during their course of treatmen. 2. Summarize the time- course for resolution of acute symptoms and/or regressed behaviors. 3. Describe issues identified and worked on during hospitalization. 4. Describe medication utilized. 5. Describe medical problems identified and treated. 6. Reassessment of suicide risk Summary of Hospital Course: Patient was admitted to the psychiatry unit. Individual and group therapy were provided. Patient was stabilized on Risperdal 2 mg PO Q12. Patient is unable to care for himself at this time due to chronic neurocognitive deficits. 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 Patient is psychiatrically stable for discharge to skilled nursing at this time. - Diagnosis (1) Schizophrenia Current Visit: Yes Status: Chronic (2) Dementia Current Visit: No Status: Chronic - Final Diagnosis (DSM 5) Condition upon Discharge: STABLE DSM 5: Major Neurocognitive Disorder; Schizophrenia Disposition: TRANSF TO SNF Follow-up Treatment Plan: Major Neurocognitive Disorder; Schizophrenia -Discharge to skilled nursing - Smoking Cessation Smoking Cessation Medication prescribed: No Reason for not providing: Not indicated - Antipsychotic Medications Pt discharged on 2 or more routine antipsychotic medications: No
[2018-05-15] MEDS ORDERED: Insulin Detemir 100 Units/ml Inj SC SCH (22:00)
== END 2018-05-15 13:00 | DRG 884 ==
LOC: H.ER 21:25 → H.ERHOLD 05-02 05:54 → H.STEP 05-02 15:06
PROVIDERS: ADMIT Psychiatry & Neurology Psychiatry; ATTEND Psychiatry & Neurology Psychiatry
PROC: GZHZZZZ Group Psychotherapy (ICD-10-PCS; principal; 2018-05-02)
DX: F01.50 Vascular dementia, unspecified severity, without behavioral disturbance, psychotic disturbance, mood disturbance, and anxiety (principal); F20.0 Paranoid schizophrenia; E03.9 Hypothyroidism, unspecified; Z87.891 Personal history of nicotine dependence; Z79.4 Long term (current) use of insulin; Z79.82 Long term (current) use of aspirin; E11.65 Type 2 diabetes mellitus with hyperglycemia; R63.6 Underweight; Z68.21 Body mass index [BMI] 21.0-21.9, adult